=== PATIENT | female | born 1930 | race Caucasian/White ===

== ENCOUNTER 2017-09-08 23:14 | Inpatient (IN) | payer MEDICARE ==
[2017-09-09] MEDS ORDERED: Ondansetron HCl/PF 4 MG/2 ML Vial ONE ×3 (00:07→16:35)
[2017-09-09] MEDS ORDERED: Morphine 2 MG/ML SYRINGE ONE ×2 (00:07→01:40)
[2017-09-09 00:10] LABS: #Eosinphils 0.2 thou/uL (0.0-0.7); #Lymphocytes 0.9 thou/uL (1.20-3.40); #Monocytes 0.6 thou/uL (0.11-0.59); #Neutrophils 8.5 thou/uL (1.40-6.50); %Basophils 0.3 % (0.0-1.0); %Eosinophils 1.9 % (0.0-10.0); %Lymphocytes 8.8 % (21.0-51.0); %Monocytes 5.6 % (0.0-10.0); %Neutrophils 83.4 % (42.0-75.0); Hemoglobin 12.6 g/dL (12.0-16.0); Mean Corpuscular HGB CONC 31.1 g/dL (32.0-36.0); Mean Corpuscular Hemoglobin 30.8 pg (27.0-31.0); Mean Platelet Volume 7.1 fL (7.4-10.4); Platelet Count 384 thou/uL (130-400); RBC Distribution Width 13.2 % (11.5-14.5); White Blood Cell (WBC) Count 10.1 thou/uL (4.8-10.8)
[2017-09-09 00:30] LABS: ALT (SGPT) 19 U/L (8-55); AST (SGOT) 21 U/L (5-34); Albumin 4.1 g/dL (3.4-4.8); Alkaline Phosphatase 102 U/L (40-150); Anion Gap 16 mmol/L (10-20); BUN (Urea Nitrogen) 36 mg/dL (9.8-20.1); Bilirubin, Total 0.5 mg/dL (0.2-1.2); Calc. Creatinine Clearance 0 mL/min (70-130); Calcium 10.3 mg/dL (7.8-10.44); Carbon Dioxide 25 mmol/L (23-31); Chloride 102 mmol/L (98-107); Estimated GFR-MDRD 21; Globulin 2.8 g/dL (2.4-3.5); Glucose 138 mg/dL (83-110); Potassium 4.3 mmol/L (3.5-5.1); Protein, Total 6.9 g/dL (6.0-8.3); Sodium 139 mmol/L (136-145)
[2017-09-09 00:42] LABS: Bilirubin Negative (Negative); Blood, Urine Moderate (Negative); Clarity TURBID (Clear); Glucose, Urine (Dipstick) Negative (Negative); Leukocyte Large (Negative); Nitrite Positive (Negative); Protein, Urine (Dipstick) 30 mg/dL (Neg-Trace); Specific Gravity, Urine 1.017 (1.002-1.036); Urobilinogen 0.2 mg/dL (0.2-1.0)
[2017-09-09 00:45] LABS: Bacteria/HPF 4+ HPF (None Seen); Hyaline Casts/LPF 0-3 HYALINE CAST LPF (0-3 Hyaline); Pathc Cast-AUWi Flag 0.14 (0-2.49); Squamous Epithelial None Seen HPF (0-3)
[2017-09-09 00:48] LABS: Yeast-AUWi Flag 420.5 (0-25.0)
[2017-09-09 00:58] LABS: Yeast-All Forms Rare HPF (None Seen)
[2017-09-09] MEDS ORDERED: cefTRIAXone\\ROCEPHIN 2 GM in Sodium Chloride 0.9% 100 ML IVPB SCH (01:45)
[2017-09-09] MEDS ORDERED: Acetaminophen 325 MG TAB PO PRN (02:52)
[2017-09-09] MEDS ORDERED: Ondansetron ODT 4 MG TAB SL PRN (02:52)
[2017-09-09] MEDS ORDERED: Ondansetron HCl/PF 4 MG/2 ML Vial IVP PRN ×2 (02:52→11:16)
[2017-09-09] MEDS: Sodium Chloride 0.9% 1,000 ML IV SCH ×5 (02:56→23:19)
[2017-09-09] MEDS: Morphine 2 MG/ML SYRINGE SLOW IVP PRN ×4 (03:31→08:14)
--- NOTE | 2017-09-09 08:08 | CT ---
PRELIMINARY REPORT/[facility]/EMERGENCY AFTER HOURS PROCEDURE: EXAM: CT Abdomen and Pelvis Without Intravenous Contrast CLINICAL HISTORY: 87 years old, female; Pain; Abdominal pain; Flank; Right; Prior surgery; Surgery type: Surgical histo ry of appendectomy, surgical history of hysterectomy, cholecystectomy; Patient HX: 87f presents with right flank pain that started this afternoon. Patient reports pain radiates to her front. Reports HX of kidney stones and states this feels similar but worse. Reports nausea but no vomiting. Pain not associated with eating. Denies fever and chills. TECHNIQUE: Axial computed tomography images of the abdomen and pelvis without intravenous contrast. Coronal reformatted images were created and reviewed. COMPARISON: No relevant prior studies available. FINDINGS: Lower thorax: Minimal bibasilar atelectasis and/or scarring. Atherosclerotic ossification of the visu alized distal thoracic aorta. Small-sized hiatal hernia. ABDOMEN: Liver: Normal. Gallbladder and bile ducts: Gallbladder is surgically absent. Pancreas: Normal. Spleen: Normal. Adrenals: Normal. Kidneys and ureters: Right hydronephrosis, with obstructive 7 mm calculus within the right proximal u reter. Bilateral nonobstructive nephrolithiasis. Stomach and bowel: Normal. Appendix: No findings to suggest acute appendicitis. PELVIS: Bladder: Normal. Reproductive: Uterus is surgically absent. ABDOMEN and PELVIS: Intraperitoneal space: Normal. No free air. No significant fluid collection. Bones/joints: Right hip arthroplasty, without acute complications. Left femoral neck fixation screws present. Old, healed left inferior and superior pubic rami fractures. Multilevel thoracolumbar spine degenerative changes. No dislocation. Soft tissues: Normal. Vasculature: Atherosclerotic disease of the abdominal aorta and iliac arteries. Multiple phleboliths within the pelvis. Lymph nodes: Normal. IMPRESSION: 1. Right hydronephrosis, with obstructive 7 mm calculus within the right proximal ureter. 2. Incidental/non-acute findings are described above. Thank you for allowing us to participate in the care of your patient. Dictated and Authenticated by: Ariel Liang MD 09/09/2017 12:59 AM Central Time ([place]) FINAL REPORT CT ABDOMEN AND PELVIS WITHOUT CONTRAST STONE PROTOCOL: Date: 09/09/17 HISTORY: Flank pain. COMPARISON: CT abdomen and pelvis stone protocol dated 03/18/17. FINDINGS/IMPRESSION: Findings and impression are concordant with the preliminary report by Rohit. In addition, there is gas within the right superior renal collecting system as was seen on the prior examination. Chronic comp ression fractures throughout the thoracolumbar spine. Insufficiency type fractures of the ilium bilat erally and the sacrum with sclerosis. POS: [facility]
[2017-09-09] MEDS ORDERED: Metoprolol Tartrate 5 MG/5 ML VIAL IVP SCH (08:15)
[2017-09-09] MEDS ORDERED: cloNIDine 0.1 MG TAB PO PRN (08:43)
[2017-09-09] MEDS ORDERED: Diltiazem 125 MG in Sodium Chloride 0.9% 100 ML IVPB SCH (08:45)
[2017-09-09] MEDS ORDERED: Ketorolac Tromethamine 30 MG/ML VIAL IVP SCH (08:45)
[2017-09-09] MEDS: Meropenem 1 GM in Sterile Water 20 ML SLOW IVP SCH ×2 (08:51→17:49)
[2017-09-09] MEDS ORDERED: METOPROLOL SUCCINATE 50 MG PO SCH (09:00)
[2017-09-09] MEDS ORDERED: Amlodipine 10 MG TAB PO SCH (09:00)
[2017-09-09] MEDS ORDERED: Ferrous Sulfate 325 MG TAB PO SCH (09:00)
[2017-09-09] MEDS ORDERED: Morphine ER 15 MG TAB PO SCH (09:00)
[2017-09-09] MEDS ORDERED: Pantoprazole 40 MG VIAL IVP SCH (09:00)
[2017-09-09] MEDS ORDERED: Levothyroxine Sodium 112 MCG TAB PO SCH (09:00)
[2017-09-09] MEDS ORDERED: Amlodipine 5 MG TAB PO SCH (09:00)
--- NOTE | 2017-09-09 09:27 | HP ---
DATE OF ADMISSION: 09/09/2017 CHIEF COMPLAINT: Abdominal pain. HISTORY OF PRESENT ILLNESS: This is an 87-year-old white female with a known history of renal stones in the past, has been closely following up with Dr. Forbes as outpatient. Discussed with son. The patient was in severe pain today and living at [facility] and she called th e EMS. She was having severe vomiting and abdominal pain. When patient arrived in the ER, she had e vidence of fever of 101 and then patient went to the floor. A rapid response was called as the patie nt was tachycardic to 120s-130s. She has a history of atrial fibrillation and her pain was 10/10 on intensity, no response with morphine of 2 mg. Pain was located in the right lower quadrant associate d with severe nausea. Patient was given 4 mg of morphine which did relieve some pain and following w hich tachycardia went up to like 140s to 170s, so 5 mg of IV metoprolol was given. The patient did r espond very well to that. The patient was closely monitored and discussed with the son about the cod e status and she wants a FULL CODE. Also discussed with urologist, Dr. Forrester who suggested the patient would need immediate stent placement and would go to the OR. PAST MEDICAL HISTORY: 1. Recurrent renal stones. 2. Anxiety. 3. Hypothyroidism. 4. Hypertension. 5. History of restless legs syndrome. 6. History of atrial fibrillation on anticoagulation. PAST SURGICAL HISTORY: History of cholecystectomy. FAMILY HISTORY: Extensive family history of cancer, but do not know what type of cancer. It is more on the father's side. No history of coronary artery disease. SOCIAL HISTORY: The patient denies any alcohol. No history of illicit drug use. No history of smok ing. ALLERGIES: No known drug allergies. HOME MEDICATIONS: 1. Alprazolam 0.25 mg p.o. daily. 2. Amlodipine 5 mg p.o. daily. 3. Eliquis 2.5 mg p.o. daily. 4. Benazepril 10 mg p.o. daily. 5. Clonidine 0.5 mg daily. 6. Famotidine 20 mg p.o. b.i.d. 7. Ferrous sulfate 325 mg p.o. daily. 8. Levothyroxine. 9. Metoprolol 25 mg daily. 10. Morphine 15 mg p.o. daily. 11. Ropinirole 0.5 mg p.o. bedtime. 12. Sennosides 2 tablets p.o. b.i.d. 13. Trazodone. REVIEW OF SYSTEMS: All 12 systems are reviewed with the patient thoroughly and found to be negative at this time. Systems reviewed are HEENT, CVS, VERIFICATION ENGINEER, respiratory, GI and . The following complete review of systems was negative, unless otherwise mentioned in the HPI or below: Constitutional: Weight loss or gain, sense of well-being, ability to conduct usual activities, exerc ise tolerance. Skin/Breast: Rash, itching, changes in hair growth or loss, nail changes, breast lumps, tenderness, swelling, nipple discharge. Eyes: Vision, double vision, tearing, blind spots, pain. ENT/Mouth: Headaches (location, time of onset, duration, precipitating factors), vertigo, lightheade dness, injury. Vision, double vision, tearing, blind spots, pain, nose bleeding, colds, obstruction, discharge, dental difficulties, gingival bleeding, dentures, neck stiffness, pain, tenderness, masses in thyroid or other areas Cardiovascular: Precordial pain, substernal distress, palpitations, syncope, dyspnea on exertion, or thopnea, nocturnal paroxysmal dyspnea, edema, cyanosis, hypertension, heart murmurs, varicosities, ph lebitis, claudication. Respiratory: Pain, shortness of breath, wheezing, stridor, cough, hemoptysis, fever or night sweats Gastrointestinal: Poor appetite, dysphagia, indigestion, abdominal pain, heartburn, eructation, naus ea, vomiting, hematemesis, jaundice, constipation, or diarrhea, abnormal stools (tapan-colored, tarry, bloody, greasy, foul smelling), flatulence, hemorrhoids, recent changes in bowel habits. Genitourinary: Urgency, frequency, dysuria, nocturia, hematuria, polyuria, oliguria, unusual (or yash nge in) color of urine, stones, hesitancy, change in size of stream, dribbling, acute retention or in continence, libido, potency. Musculoskeletal: Pain, swelling, redness or heat of muscles or joints, limitation, of motion, muscul ar weakness, atrophy, cramps. Neurologic/Psychiatric: Convulsions, paralyses, tremor, incoordination, paraesthesias, difficulties with memory of speech, sensory or motor disturbances, or muscular coordination (ataxia, tremor), emot ional problems, anxiety, depression, previous psychiatric care, unusual perceptions, hallucinations. Allergy/Immunologic: Skin rash, anemia, bleeding tendency, polydipsia, polyuria, intolerance to heat or cold. PHYSICAL EXAMINATION: VITAL SIGNS: Blood pressure is 148/74, heart rate is 145, respiratory rate is 18, and saturation 91% on 3 liters. GENERAL: The patient is moderately built and moderately nourished. She does appears to be in acute distress with pain in the right lower quadrant. HEENT: Atraumatic, normocephalic. PERRLA. Extraocular movements were intact. Oral mucosa is pink and moist. CARDIOVASCULAR: S1 and S2 normal. No murmurs, no rubs, no gallops. LUNGS: Bilateral air entry was equal. No wheezing, no crackles. ABDOMEN: Soft, nontender, no guarding, no rebound tenderness. Bowel sounds normal. MUSCULOSKELETAL: No calf tenderness. No pedal edema. No joint tenderness, no joint swelling. SKIN: No cyanosis, no erythema, no rash, no pallor. NEUROLOGIC: Cranial nerve examination II-XII intact. No focal deficits were noted. NECK: No thyromegaly, no lymphadenopathy. LABORATORY DATA AND IMAGING DATA: 1. WBC 10.1, hemoglobin 12.6, hematocrit is 40.6, platelets are 384. Sodium 139, potassium 4.3, chl oride 102, bicarbonate is 25, BUN is 36, creatinine is 2.2. 2. Blood sugar is 138. WBC 10.1, hemoglobin 12.6, hematocrit 40.6, and platelets 384. 3. CT of the abdomen was done showing evidence of a 7 mm proximal right ureteral stone. ASSESSMENT: 1. Acute obstructive uropathy. 2. Acute pyelonephritis. 3. Acute kidney injury. 4. Atrial fibrillation with rapid ventricular rate. 5. Hypertension. 6. Severe dehydration. PLAN: 1. The plan is to admit this patient to the [facility] at this time as the patient has atrial fibrillation with rapid ventricular rate, did not respond to metoprolol 5 mg. We will start the patient on Cardi zem and titrate patient to keep the heart rate less than 90. We will continue the patient on IV flui ds at this time. 2. The patient has evidence of acute obstructive uropathy and discussed with Dr. Forrester, plan t o take the patient to the OR at 10:00 this morning and we will keep the patient n.p.o. and we will st art the patient on IV antibiotics with meropenem 1 gram IV t.i.d. We will closely monitor. The be ent also has evidence of right hydronephrosis and patient would need immediate decompression of the u reter. 3. The patient has a history of acute kidney injury. The patient was given 1 liter fluid bolus norm al saline and we will continue to hydrate the patient at 100 mL an hour. 4. Patient history of hypertension. We will restart the patient's home medications. 5. The patient is anticoagulated with Eliquis. We will hold off on Eliquis at this time until after the surgery and we will have urologist decide on restarting the patient on Eliquis at that point. 6. Deep venous thrombosis prophylaxis, sequential compression devices. DICTATING PHYSICIAN: Cristobal Lopez. I spent 70 minutes of this patient; of this, 60 minutes is critical care time. My critical care time is from 07:50 a.m. to 08:50 a.m.
--- NOTE | 2017-09-09 09:31 | RAD ---
CHEST 1 VIEW: Date: 09/09/17 HISTORY: Low O2 sat. COMPARISON: Chest radiograph dated 04/06/16. FINDINGS: There are chronic pleural and parenchymal changes at both lung bases. Heart size upper limits of norm al. Mild prominence of the right hilum. Mild dextroscoliosis. The right pleural effusion seen on the prior examination has improved. IMPRESSION: Chronic changes. No acute intrathoracic abnormality. POS: H
[2017-09-09] MEDS: Senokot 8.6 MG TAB PO SCH ×2 (09:35→21:31)
[2017-09-09] MEDS ORDERED: Fentanyl 100 MCG/2 ML VIAL ONE (10:11)
[2017-09-09] MEDS ORDERED: Phenylephrine 10 MG/NS 250 ML 250 ML ONE (10:13)
[2017-09-09] MEDS ORDERED: Iothalamate Meglumine 60% 50 ML VIAL FS ONE (10:45)
[2017-09-09] MEDS ORDERED: Promethazine HCl 25 MG/ML VIAL SLOW IVP PRN (11:16)
[2017-09-09] MEDS ORDERED: Morphine Sulfate 2 MG/ML SYRINGE SLOW IVP PRN (11:16)
[2017-09-09] MEDS ORDERED: Promethazine HCl 25 MG/ML VIAL IM PRN (11:16)
[2017-09-09] MEDS ORDERED: Esmolol 100 MG/10 ML VIAL ONE ×2 (11:18→16:35)
--- NOTE | 2017-09-09 12:22 | RAD ---
IVP: Date: 09/09/17 HISTORY: Post right ureteral stent placement. FINDINGS: AP view abdomen obtained. There is hydronephrosis of the right kidney. There has been placement of a right ureteral stent, proximal portion in mid calices and distal aspect in expected location of bladd er. There is a cystoscope in place. Right and left proximal femoral hardware is in place. Atherosclerotic calcification of the abdominal aorta seen. IMPRESSION: Placement of a right ureteral stent. POS: [facility]
--- NOTE | 2017-09-09 13:00 | CT ---
CT BRAIN: Date: 09/09/17 HISTORY: Altered mental status. TECHNIQUE: Noncontrast enhanced CT images of brain obtained. FINDINGS/IMPRESSION: The brain is unremarkable. No evidence of intracranial masses, hemorrhages, strokes, or contusions se en. Findings called to Dr. Lopez at 1237 hours on 09/09/17. CODE CR. POS: [facility]
--- NOTE | 2017-09-09 13:00 | CON ---
DATE OF CONSULTATION: 09/09/2017 INPATIENT CONSULTATION REASON FOR CONSULT: Right ureteral stone with hydronephrosis, recurrent kidney stones. PRIMARY UROLOGIST: Bran Forbes MD HISTORY OF PRESENT ILLNESS: Ms. Thapa is an 87-year-old female with history of COPD, atrial fibrillation, history of recurrent kidney stones, followed by Dr. Forbes. She initially underwent right ureteral stent back in 03/2016 and underwent left ureteroscopy, laser lithotripsies, and stent placement on 2016. She presents today with a history of right flank pain. The patient currently has received morphine and subjective history is somewhat poor. She does relate taking her Eliquis this morning, however, that is erroneous since she is in the hospital, likely she took a dose yesterday morning. As she is a poor historian, history is obtained per chart. Previous imaging reviewed. She presented with stable vital signs with no fever, however this morning, she spiked to 103 with increased heart rate of 145. The patient transitioned to step down ICU. Currently receiving IV Cardizem. PAST MEDICAL HISTORY: Anxiety, COPD, depression, GERD, hypertension, history of recurrent kidney stones, history of pneumonia. PAST SURGICAL HISTORY: 1. Hip surgery. 2. Bilateral hysterectomy. 3. 03/2016, cystoscopy and right stent by Dr. Forbes. 4. 03/18/2017, left ureteroscopy, laser lithotripsy, stent placement [address] Forbes. HOME MEDICATIONS: Include Norvasc, Xanax, amlodipine, Eliquis 2.5 mg b.i.d., Lotensin, digoxin, Pepcid, levothyroxine, metoprolol, MS Contin, MiraLax, Senokot. ALLERGIES: No known drug allergies. REVIEW OF SYSTEMS: Ten-point review of systems as above. PHYSICAL EXAMINATION: VITAL SIGNS: Temperature 103.2, heart rate is 145, 91% on 3 liters, blood pressure 130/74. GENERAL: The patient appears somewhat confused, she has received morphine recently. Frail elderly female. HEART: Tachycardic, irregular. LUNGS: Decreased inspiratory effort. ABDOMEN: Midline laparotomy incision, protuberant. There is no gross rigidity or rebound. Pompa catheter draining clear yellow urine. EXTREMITIES: No cyanosis, clubbing, or edema. PERTINENT LABS AND IMAGING: White count 10, hemoglobin 12, platelet 387, INR 1.0, PTT of 30, BUN 36, creatinine 2.2, baseline creatinine variable from 1.0 to 0.4. Urinalysis demonstrates positive nitrites, 4+ bacteria. Blood culture and urine culture are pending. I did review her previous urine culture demonstrating Proteus, E. coli, pansensitive except to Macrobid. She has received Rocephin, meropenem. CT of the abdomen and pelvis stone protocol dated 09/09/2017: There is right hydroureteronephrosis due to 7-mm stone in the right proximal ureter. Per my review, the craniocaudal dimension of the stone is 1.2-2 cm. I cannot rule out these 2 stones on top of each other. There are multiple large right nonobstructing renal lithiasis, largest in the lower pole approximately 1.2 cm with some dystrophic calcification in the renal parenchyma. Left kidney also has multiple renal calculi near 8-10 mm. There is no evidence of left hydronephrosis. IMPRESSION/PLAN: 1. Ms. Thapa is an 87-year-old female with history of recurrent urolithiasis. She presents with right ureteral calculi with urinalysis consistent with urinary tract infection component. 2. Fever. The patient has been provided broad spectrum antibiotic therapy, the patient to OR for emergent cystoscopy and right stent placement. As patient has been taking Eliquis, I will attempt to place a stent. If I am unable to place a stent, she will require nephrostomy tube. MTDD
[2017-09-09] MEDS ORDERED: Norepinephrine 8 MG/0.9% NS 250 ML ONE (13:09)
--- NOTE | 2017-09-09 13:11 | PDOC.PN ---
- Subjective Encounter Start Date: 09/09/17 Encounter Start Time: 12:30 (Rapid Response was called) Patient is seen today after she returned from Right ureteric Stent placement, She was altered and disorieted was not following commands for the nurses. Pt denies any chest pain. - Objective MAR Reviewed: Yes Vital Signs & Weight: Vital Signs (12 hours) Temp Temp Pulse Resp BP BP Pulse Ox 09/09/17 09:34 145 H 09/09/17 09:31 102.6 F H 145 H 24 H 107/72 96 09/09/17 07:50 103.2 F H 148/74 H 09/09/17 07:35 103.2 F H 145 H 18 148/74 H 91 L 09/09/17 04:41 98.9 F 96 19 145/77 H 93 L 09/09/17 03:39 98.7 F 109 H 16 92 L 09/09/17 02:37 98.7 F 109 H 16 135/77 92 L Pulse Ox 09/09/17 09:34 09/09/17 09:31 09/09/17 07:50 91 L 09/09/17 07:35 09/09/17 04:41 09/09/17 03:39 09/09/17 02:37 Weight Weight 125 lb 0.034 oz Result Diagrams: 09/08/17 23:55 09/08/17 23:55 Additional Labs: Accuchecks 09/09/17 07:53 POC Glucose 148 H Radiology Reviewed by me: Yes EKG Reviewed by me: Yes Phys Exam - Physical Examination HEENT: PERRLA, moist MMs Neck: no nodes, no JVD Respiratory: wheezing present Cardiovascular: RRR, no significant murmur Gastrointestinal: soft, non-tender, no distention Musculoskeletal: no edema, pulses present Neurological: non-focal, normal sensation Lymphatic: no nodes Dx/Plan (1) Acute encephalopathy Code(s): G93.40 - ENCEPHALOPATHY, UNSPECIFIED Status: Acute Comment: Unknown cause, CT head negative, Will Do MRI when pt is more stable. Will do neurochecks and do neurology consult. (2) Hypotension due to drugs Status: Acute Comment: GIve IV fluid bolus, Will Hold the Cardizem Drip, will consult Cardiology, pt will need Amiodarone. (3) Atrial fibrillation with RVR Code(s): I48.91 - UNSPECIFIED ATRIAL FIBRILLATION Status: Acute Comment: Plan for Amiodarone drip, Will get Echo for wall motion abnormality. (4) Acute unilateral obstructive uropathy Code(s): N13.9 - OBSTRUCTIVE AND REFLUX UROPATHY, UNSPECIFIED Status: Acute Comment: PT had Right uretric Stent, Will closley monitor. (5) Hydronephrosis, right Code(s): N13.30 - UNSPECIFIED HYDRONEPHROSIS Status: Acute Comment: Worsening Renal fucntions should improve after Stent placement. (6) COPD (chronic obstructive pulmonary disease) Status: Chronic Qualifiers: COPD type: chronic bronchitis Chronic bronchitis type: unspecified Qualified Code(s): J42 - Unspecified chronic bronchitis Comment: No evidence of COPd exacerbation. (7) HTN (hypertension) Code(s): I10 - ESSENTIAL (PRIMARY) HYPERTENSION Status: Chronic Qualifiers: Hypertension type: essential hypertension Qualified Code(s): I10 - Essential (primary) hypertension - Plan cont current plan of care, plan discussed w/ family, knowles catheter * . - Discharge Day Encounter end time: 13:00 Review of Systems - Review of Systems ENT: negative: Ear Pain, Ear Discharge, Nose Pain, Nose Discharge, Nose Congestion, Mouth Pain, Mouth Swelling, Throat Pain, Throat Swelling, Other Respiratory: negative: Cough, Dry, Shortness of Breath, Hemoptysis, SOB with Excertion, Pleuritic Pain, Sputum, Wheezing Cardiovascular: negative: chest pain, palpitations, orthopnea, paroxysmal nocturnal dyspnea, edema, light headedness, other Gastrointestinal: negative: Nausea, Vomiting, Abdominal Pain, Diarrhea, Constipation, Melena, Hematochezia, Other Genitourinary: negative: Dysuria, Frequency, Incontinence, Hematuria, Retention , Other Musculoskeletal: negative: Neck Pain, Shoulder Pain, Arm Pain, Back Pain, Hand Pain, Leg Pain, Foot Pain, Other - Medications/Allergies Allergies/Adverse Reactions: Allergies Allergy/AdvReac Type Severity Reaction Status Date / Time No Known Allergies Allergy Verified 09/19/16 05:52 Medications: Current Medications Acetaminophen (Tylenol) 650 mg PO Q4H PRN PRN Reason: Headache/Fever or Pain Stop: 09/09/17 13:32 Last Admin: 09/09/17 07:57 Dose: 650 mg Amlodipine Besylate (Norvasc) 5 mg PO DAILY [facility] Last Admin: 09/09/17 09:34 Dose: Not Given Benazepril HCl (Lotensin) 10 mg PO DAILY [facility] Last Admin: 09/09/17 09:34 Dose: Not Given Clonidine (Catapres) 0.1 mg PO Q4H PRN PRN Reason: SBP > 180 Fentanyl (Pacu-Sublimaze) 50 mcg SLOW IVP Q10MIN PRN PRN Reason: Moderate to Severe Pain (6-10) Stop: 09/09/17 14:16 Ferrous Sulfate (Feosol) 325 mg PO DAILY [facility] Last Admin: 09/09/17 09:34 Dose: Not Given Sodium Chloride (Normal Saline 0.9%) 1,000 mls @ 125 mls/hr IV .Q8H [facility] Stop: 09/09/17 13:32 Last Admin: 09/09/17 08:54 Dose: 1,000 mls Meropenem 1 gm/ Sterile Water 20 mls @ 240 mls/hr SLOW IVP 0100,0900,1700 [facility] Last Admin: 09/09/17 08:51 Dose: 20 mls Diltiazem HCl 125 mg/ Sodium (Chloride) 125 mls @ 0 mls/hr IVPB INF [facility]; Titrate PRN Reason: Protocol Last Admin: 09/09/17 09:42 Dose: 125 mls Influenza Virus Vaccine (Fluzone High-Dose Syr) 0.5 ml IM .ONCE ONE Stop: 09/10/17 09:01 Levothyroxine Sodium (Synthroid) 112 mcg PO DAILY [facility] Last Admin: 09/09/17 09:34 Dose: Not Given Metoprolol Succinate (Toprol Xl) 50 mg PO DAILY [facility] Last Admin: 09/09/17 09:34 Dose: Not Given Morphine Sulfate (Morphine) 2 mg SLOW IVP Q4H PRN PRN Reason: Pain Last Admin: 09/09/17 08:14 Dose: 2 mg Morphine Sulfate (Ms Contin) 15 mg PO DAILY [facility] Last Admin: 09/09/17 09:34 Dose: Not Given Morphine Sulfate (Pacu-Morphine Sulfate) 2 mg SLOW IVP Q10MIN PRN PRN Reason: Moderate to Severe Pain (6-10) Stop: 09/09/17 14:16 Ondansetron HCl (Zofran) 4 mg IVP Q6H PRN PRN Reason: Nausea/Vomiting Stop: 09/09/17 13:32 Last Admin: 09/09/17 04:46 Dose: 4 mg Ondansetron HCl (Zofran Odt) 4 mg SL Q6H PRN PRN Reason: Nausea/Vomiting Stop: 09/09/17 13:32 Ondansetron HCl (Pacu-Zofran) 4 mg IVP ONE PRN PRN Reason: Nausea/Vomiting Stop: 09/09/17 14:16 Pantoprazole Sodium (Protonix) 40 mg IVP DAILY [facility] Last Admin: 09/09/17 08:46 Dose: 40 mg Pneumococcal 13-Valent Conj Vacc (Prevnar) 0.5 ml IM .ONCE ONE Stop: 09/10/17 09:01 Promethazine HCl (Pacu-Phenergan) 6.25 mg SLOW IVP ONE PRN PRN Reason: Nausea/Vomiting Stop: 09/09/17 14:16 Promethazine HCl (Pacu-Phenergan) 6.25 mg IM ONE PRN PRN Reason: Nausea/Vomiting Stop: 09/09/17 14:16 Ropinirole HCl (Requip) 0.5 mg PO QPM [facility] Senna (Senokot) 2 tab PO BID [facility] Last Admin: 09/09/17 09:35 Dose: Not Given Sodium Chloride (Flush - Normal Saline) 10 ml IVF Q12HR [facility] Last Admin: 09/09/17 09:35 Dose: Not Given Sodium Chloride (Flush - Normal Saline) 10 ml IVF PRN PRN PRN Reason: Saline Flush Sodium Chloride (Flush - Normal Saline) 10 ml IVF PRN PRN PRN Reason: Saline Flush Trazodone HCl (Desyrel) 50 mg PO HS [facility]
[2017-09-09] MEDS ORDERED: Norepinephrine 8 MG/0.9% NS 250 ML IVPB SCH ×2 (13:15→14:30)
[2017-09-09 13:35] LABS: CO2 Tension 60.8 mmHg (35.0-45.0); O2 Tension (PaO2) 70.3 mmHg (80.0-100.0); pH, Arterial 7.19 (7.35-7.45)
[2017-09-09 13:36] LABS: Actual Bicarbonate (HCO3a) 22.5 mEq/L (22-26); Base Excess (BEa) -6.3 mEq/L (0 (+/-) 2.5); Calcium, Ionized 1.3 mmol/L (1.12-1.30); Hemoglobin (Hb) 11.8 g/dL (12.0-16.0); Puncture Site LRA
[2017-09-09 13:37] LABS: CO2 Tension 35.3 mmHg (35.0-45.0); pH, Arterial 7.42 (7.35-7.45)
[2017-09-09 13:38] LABS: ALV-art Gradient 150.355 (0-20); Actual Bicarbonate (HCO3a) 22.4 mEq/L (22-26); Base Excess (BEa) -1.5 mEq/L (0 (+/-) 2.5); Calcium, Ionized 1.3 mmol/L (1.12-1.30); Hemoglobin (Hb) 12.6 g/dL (12.0-16.0); O2 Tension (PaO2) 62.2 mmHg (80.0-100.0); Puncture Site LRA
[2017-09-09] MEDS ORDERED: Meropenem 1 GM in Sodium Chloride 0.9% 100 ML IVPB SCH (14:00)
[2017-09-09 14:07] LABS: Troponin I 1.718 ng/mL (< 0.028)
[2017-09-09 14:21] LABS: Actual Bicarbonate (HCO3a) 17.8 mEq/L (22-26); Base Excess (BEa) -6.4 mEq/L (0 (+/-) 2.5); CO2 Tension 30.8 mmHg (35.0-45.0); Hematocrit-ABG 35.4 % (36.0-47.0); Hemoglobin (Hb) 10.8 g/dL (12.0-16.0); O2 Tension (PaO2) 110.1 mmHg (80.0-100.0); pH, Arterial 7.38 (7.35-7.45)
[2017-09-09 14:22] LABS: Calcium, Ionized 1.3 mmol/L (1.12-1.30)
[2017-09-09 14:23] LABS: Puncture Site RBA
[2017-09-09] MEDS ORDERED: CCU Electrolyte Replacement 1 EACH FS ONE (14:23)
[2017-09-09] MEDS ORDERED: Sedation Protocol FS ONE (14:23)
[2017-09-09] MEDS ORDERED: Acetaminophen 650 MG in Premix Bag 1 BAG IVPB PRN (14:27)
[2017-09-09] MEDS ORDERED: Magnesium Oxide 400 MG TAB PO PRN ×2 (14:31)
[2017-09-09] MEDS ORDERED: Morphine 2 MG/ML SYRINGE SLOW IVP PRN (14:31)
[2017-09-09] MEDS ORDERED: Magnesium 2 GM/NS 0.9% 100 ML 2 GM in Premix Bag 1 BAG IVPB PRN (14:31)
[2017-09-09] MEDS ORDERED: Potassium Phosphate 15 MMOL in Sodium Chloride 0.9% 250 ML 250 ML IV PRN (14:31)
[2017-09-09] MEDS ORDERED: Potassium Phosphate 9 MMOL in Sodium Chloride 0.9% 100 ML IVPB PRN (14:31)
[2017-09-09] MEDS ORDERED: CCU ELECTROLYTE REPLACEMENT PROTOCOL FS PRN (14:31)
[2017-09-09] MEDS ORDERED: DISCONTINUE PREVIOUS NARCOTIC PAIN MEDICATIONS AND BENZODIAZEPINES FS SCH (14:31)
[2017-09-09] MEDS ORDERED: Potassium Chloride 40 MEQ in Premix Bag 1 BAG IVPB PRN (14:31)
[2017-09-09] MEDS ORDERED: Propofol 1,000 MG/100 ML VIAL IV PRN (14:31)
[2017-09-09] MEDS ORDERED: Potassium Chloride 40 MEQ in Sodium Chloride 0.9% 250 ML 250 ML IVPB PRN (14:31)
[2017-09-09] MEDS ORDERED: Potassium Chloride 20 MEQ TAB PO PRN (14:31)
[2017-09-09] MEDS ORDERED: Potassium Phosphate 12 MMOL in Sodium Chloride 0.9% 250 ML 250 ML IV PRN (14:31)
[2017-09-09] MEDS ORDERED: Fentanyl 20 MCG/ML 250 ML IVPB SCH (14:31)
--- NOTE | 2017-09-09 14:40 | RAD ---
CHEST 1 VIEW: Date: 09/09/17 HISTORY: Intubated, line placement. COMPARISON: Chest 1 view same date. FINDINGS: Patient intubated with endotracheal tube tip above the sebas approximately 3.5 cm. Central venous ca theter is in place, tip in right atrium. Enteric tube tip below diaphragm, out of field of view. Layering effusions. No pneumothorax. Heart size mildly prominent. IMPRESSION: Lines and tubes as above. No complications. POS: [facility]
--- NOTE | 2017-09-09 14:54 | OP ---
DATE OF SERVICE: 09/09/2017 PRIMARY UROLOGIST: Bran Forbes M.D. PREOPERATIVE DIAGNOSES: 1. An 87-year-old female with history of recurrent urolithiasis, presents with right hydronephrosis, nitrite positive urine, stone burden in the ureter measuring approximately 1.2-2 cm in craniocaudal dimension. 2. Multiple bilateral nonobstructing calculi. POSTOPERATIVE DIAGNOSES: 1. An 87-year-old female with history of recurrent urolithiasis, presents with right hydronephrosis, nitrite positive urine, stone burden in the ureter measuring approximately 1.2-2 cm in craniocaudal dimension. 2. Multiple bilateral nonobstructing calculi. PROCEDURE: Cystoscopy, right 6 x 26 double-J ureteral stent, limited retrograde. SURGEON: Hue Forrester D.O. ANESTHESIA: General. COMPLICATIONS: None apparent. DISPOSITION: Recovery room in stable condition. INDICATIONS FOR PROCEDURE AND HISTORY: Ms. Thapa is an 87-year-old female with history of recurrent urolithiasis. The patient followed by Dr. Forbes, previously underwent left ureteroscopy, laser lithotripsy, stent placement. She presents with bilateral renal lithiasis, obstructing right proximal ureteral calculi dimensions as above. This morning tmax temperature to 103 and transitioned to OR for emergent right stent placement. Risks and complications and indications reviewed with patient and family at bedside. Risks and complications including bleeding, pain, infection, urosepsis, injury to adjacent organs. Possible need for nephrostomy tube was reviewed. All questions answered to their satisfaction, she desired to proceed. DESCRIPTION OF THE PROCEDURE: After an informed consent is signed, the patient is taken to the operating room and placed in a dorsal lithotomy position with the genital area prepped and draped in the usual surgical sterile fashion. A 21 -Sinhala cystoscope was utilized for cystoscopy. Bilateral UOs were patulous. There was no evidence of bladder stone. An open-ended catheter was placed to the level of the stone, there was an obstructive component met. There was some resistance passing a 0.35 sensor wire. Therefore, I did gently do a retrograde pyelogram to opacify the collecting system. A 0.35 sensor wire was then able to be passed into the upper mid pole, a 6 x 26 double-J ureteral stent was then passed without significant issues. Upon passing the ureteral stent, drainage consistent with pyonephrosis was noted. An 18 Sinhala 10 mL Pompa catheter was placed to gravity bag to optimize drainage of the collecting system. She will continue broad spectrum antibiotic therapy. We will inform Dr. Forbes on Monday regarding patient's clinical course. The patient is to be transitioned back to IMCU for close monitoring for sepsis. [facility]
[2017-09-09] MEDS: Lorazepam 2 MG/ML VIAL SLOW IVP PRN (16:27)
[2017-09-09] MEDS ORDERED: PHENYLEPHRINE-NS 100 MCG/ML 10 ML SYRINGE ONE (16:35)
[2017-09-09] MEDS ORDERED: Succinylcholine Chloride 20 MG/ML 10 ml SYRINGE FS ONE (16:35)
[2017-09-09] MEDS ORDERED: Lidocaine 1% PF 5 ML VIAL ONE (16:35)
[2017-09-09] MEDS ORDERED: Propofol 200 MG/20 ML VIAL ONE (16:35)
[2017-09-09] MEDS ORDERED: ePHEDrine/0.9% NaCl/PF SYRINGE 50 mg/10 ml ONE (16:35)
[2017-09-09] MEDS ORDERED: Glycopyrrolate 0.2 MG/ML 5 ML SYRINGE ONE (16:35)
[2017-09-09] MEDS ORDERED: Dexamethasone 20 MG/5 ML VIAL ONE (16:35)
[2017-09-09] MEDS: Hydrocortisone Sod Succ/PF 100 mg/2 ml Vial IVP SCH ×2 (17:09→23:19)
--- NOTE | 2017-09-09 18:02 | OP ---
PROCEDURE: Central line placement. PREOPERATIVE DIAGNOSIS: Hypotension, need for vasopressors. POSTOPERATIVE DIAGNOSIS: Hypotension, need for vasopressors. ANESTHESIA: Lidocaine 1% without epinephrine. DESCRIPTION OF PROCEDURE: Chlorhexidine was used as prep and lidocaine was used as local anesthetic at both sides. Initially, I tried left subclavian. The vessel was cannulated very easily, but I cou ld not pass the wire. The site was aborted and subsequently changed to a right IJ area where a tripl e lumen catheter was placed in the right IJ vessel via the modified Seldinger technique without diffi culty. X-ray confirmed proper placement. Three ports flushed venous blood.
[2017-09-09 20:48] LABS: Troponin I 1.939 ng/mL (< 0.028)
[2017-09-09] MEDS ORDERED: rOPINIRole HCl 0.25 MG TAB PO SCH (21:00)
[2017-09-09] MEDS ORDERED: Non-Formulary Item 1 EACH (Trazodone Hcl [Trazodone Hcl] 50 MG) PO SCH (21:00)
[2017-09-09] MEDS: traZODone HCl 50 MG TAB PO SCH (21:18)
--- NOTE | 2017-09-10 00:31 | CON ---
DATE OF CONSULTATION: 09/09/2017 One hour and thirty-five minutes critical care time. REASON FOR THE CONSULTATION: Acute respiratory failure and sepsis. HISTORY OF PRESENT ILLNESS: History is obtained from speaking with family, speaking with the other joan drake and reviewing the notes in the chart. She is an 87-year-old female who apparently has a hi story of nephrolithiasis. She was having severe pain over at [facility] and EMS was called. S he was found to be febrile with extreme tachycardia. According to nursing staff at one point, her he art rate got up to the 200s. She was taken to the OR today for ureteral stent placement to relieve a n obstruction from stone. After she was in the OR, she was brought back to the floor where she demon strated altered mental status. Stroke alert was called. She was sent for a CT of the head around 12 20 hours, which showed no evidence of stroke. She came back to the room, where she continued to have problems with gurgling, respirations and inability to clear her secretions. A marquis shrestha was called . I was notified by the respiratory therapist that the patient needed to come to the CCU and probabl y need to be intubated. PAST MEDICAL HISTORY: 1. Nephrolithiasis 2. Anxiety. 3. Hypothyroidism. 4. Hypertension. 5. Restless leg syndrome. 6. Atrial fibrillation. PAST SURGICAL HISTORY: Cholecystectomy. FAMILY MEDICAL HISTORY: Remarkable for cancer. SOCIAL HISTORY: Nonsmoker, does not consume alcohol, does not use illicit drugs. ALLERGIES: None. MEDICATIONS PRIOR TO ADMISSION: Alprazolam, amlodipine, Eliquis, benazepril, clonidine, famotidine, iron sulfate, levothyroxine, metoprolol, morphine, ropinirole, trazodone, and sennosides. REVIEW OF SYSTEMS: Twelve point review of systems cannot be obtained as the patient currently intuba jad and on mechanical ventilation. PHYSICAL EXAMINATION: VITAL SIGNS: Temperature 102.6, pulse now 79, blood pressure 102/77, O2 sat 98%, respiratory rate 20 . GENERAL: I have intubated the patient as she is on mechanical ventilation. HEENT: Pupils are reactive. Sclerae anicteric. Oropharynx dry. NECK: No JVD. LUNGS: Coarse breath sounds bilaterally. CARDIAC: S1, S2, ranging between regular rhythm and tachycardic rhythm. ABDOMEN: Soft and nontender. EXTREMITIES: No clubbing, cyanosis, or edema. LABORATORY DATA: White blood cell count 10, hemoglobin 12, hematocrit 40, platelet count 384, pH 7.1 9, pCO2 of 60, pO2 of 70 on nasal cannula 3 liters. Post-intubation, her pH is 7.37, pCO2 of 30, pO2 of 110. Sodium 139, potassium 4.3, chloride 102, CO2 of 25, BUN 36, creatinine 2.2, glucose 138. T roponin 1.7. The urinalysis showed too numerous to count white blood cells and 11-20 red blood cells . Post-intubation chest x-ray interpreted by myself shows a slightly enlarged heart size. She has b ilateral infiltrative changes. The ET tube is just 2 cm above the sebas. There is a right IJ centr al line that is in place. There is no evidence of a pneumothorax. ASSESSMENT: 1. Severe urosepsis with fever and hypotension. 2. Acute respiratory failure, probably related to sepsis and not necessarily the stroke. 3. Altered mental status, which I think is probably secondary to sepsis. 4. Nephrolithiasis with ureteral tract obstruction requiring stent placement. PLAN: She has been brought to the CCU. Under the direct supervision by myself, the patient was intu bated by RT first attempt using GlideScope with a 7.5 endotracheal tube. This was accomplished without difficulty. The end-tidal CO2 detector demonstrating yellow color afterwards. The patient was then placed on mechanical ventilation.
[2017-09-10] MEDS: Meropenem 1 GM in Sterile Water 20 ML SLOW IVP SCH ×3 (00:35→16:06)
--- NOTE | 2017-09-10 01:02 | CON ---
DATE OF CONSULTATION: 09/09/2017 DATE OF ADMISSION: 09/09/2017 INDICATION FOR CONSULTATION: An 87-year-old female with acute respiratory failure, is postoperativel y with acute EKG changes and tachycardia and also abnormal cardiac enzymes. HISTORY OF PRESENT ILLNESS: An 87-year-old female who was admitted earlier with what appeared to be acute right hydronephrosis and sudden onset of flank pain, was found to have a 7-mm stone in need to undergo a right ureteral stent, this was placed today. After the procedure, she was on the floor, wa s doing relatively well. She was told to have tachycardia and elevated temperature. She then develo ped acute ST segment changes associated with tachycardia and then was transferred and then had respir atory distress, required intubation, and was transferred to the Intensive Care Unit. She did have an echocardiogram in 09/2016, which showed a normal ejection fraction with mild mitral and tricuspid va lve regurgitation. She has also had a history of atrial fibrillation and flutter in the past for whi ch she has undergone ablation. She had been doing relatively well from a cardiac standpoint, there w as no previous history that we are aware of coronary artery disease. At this time, the EKG changes s eemed to have resolved significantly. We will continue to monitor the cardiac enzymes and troponin I was 1.71 earlier today. At this time, she is on the ventilator and she is awake it seems and tries to nod to answer questions, but otherwise did not appear to be any acute distress. She denies any pa in at this time. PAST MEDICAL HISTORY: Hysterectomy, appendectomy, cholecystectomy, history of nephrolithiasis, COPD, anemia, osteoporosis. She has had a DVT in the past. She has a pelvic fracture in 2014. She has h ypothyroidism. She has had history of flutter ablations, history of nephrostomy in the past, history of a tonsillectomy, gastroesophageal reflux disease, history of atrial fibrillation and flutter in t he past which underwent ablation. SOCIAL HISTORY: She stopped smoking over 30 years ago. She has occasional alcohol which is relative ly rare. FAMILY HISTORY: Lung cancer, both in her mother and her father and one brother. ALLERGIES: None. MEDICATIONS: Reviewed medications. Please refer to the list of medicines in the chart. She is on a ntibiotics at this time. REVIEW OF SYSTEMS: Unobtainable. Please refer to the records in the chart. She is still on the chavez tilator and unable to answer this questions. PHYSICAL EXAMINATION: GENERAL: Reveals an elderly female who does not appear to be any acute distress. VITAL SIGNS: She is easily awakable, blood pressure is 125/55, heart rate is 75 and regular at this time. O2 saturations are 98%, respiratory rate 11. HEENT: Shows the head to be normocephalic and atraumatic. Carotid pulses are present. I did not he ar any significant bruits. CHEST: Clear to auscultation without rales, rhonchi, or wheezing. CARDIOVASCULAR: Exam reveals a regular rate and rhythm. She has S1, S2. I cannot hear an S3 nor an S4. There were no significant murmurs, heaves, thrills, bruits, or rubs. ABDOMEN: Soft at this time. Bowel sounds are decreased. EXTREMITIES: Show no clubbing or cyanosis. Pedal pulses are difficult to palpate. NEUROLOGIC: The patient appears to be relatively intact despite being on the ventilator. IMAGING: EKG shows a normal sinus rhythm with a first degree AV heart block. There were some episod es of atrial tachycardia earlier with ST segment depression inferiorly with slight ST segment elevati on anteriorly. These appeared to have resolved, we will repeat EKG for further evaluation. LABORATORY DATA: Her laboratory data shows a creatinine of 2.2, potassium 4.3. Hemoglobin was 12.6, WBC of 10.1, troponin I is 1.7. IMPRESSION: 1. Demand ischemia with possible non-ST segment elevation myocardial infarction with acute EKG de la cruz es, which now seems to have improved. She is on the ventilator as appears to be more comfortable at this time as long as EKG remains stable. Then we will continue to treat her medically at this time. She eventually may need to undergo cardiac catheterization, but at this time, she has had a recent s tent placed in the ureter. They may need to be cautious with blood thinner, she had been on blood th inners in the past in the form of Eliquis due to her history of atrial fibrillation/flutter. We will continue to monitor very carefully. 2. History of atrial fibrillation/flutter with an atrial tachycardia or atrial flutter this morning, which appears now to have resolved. We will need to follow this. If necessary could start low dose of beta blockers, if the blood pressure tolerates it. 3. History of hypertension, this is stable at this time. 4. History of deep venous thrombosis. She will need to have some type of anticoagulation for deep v enous thrombosis prophylaxis. She has compression hose intact at this time. 5. History of anemia. This appears to be stable at this time. 6. Chronic kidney disease. This is relatively her baseline over the last year. She has fluctuated with a creatinine between 1.76 to 2.2 if she remains stable. She is not a candidate for interv ention due to the recent stent placement and since she is more stable at this time. We will continue to follow her. She eventually may need to undergo stress testing or cardiac catheterization.
[2017-09-10] MEDS: Hydrocortisone Sod Succ/PF 100 mg/2 ml Vial IVP SCH ×4 (05:27→23:40)
[2017-09-10] MEDS: Levothyroxine Sodium 112 MCG TAB PER TUBE SCH (05:27)
[2017-09-10 06:12] LABS: Band 27 % (5-11); Hemoglobin 10.1 g/dL (12.0-16.0); Lymphocytes 1 % (21-51); MDiff Complete? YES; Mean Corpuscular HGB CONC 32.5 g/dL (32.0-36.0); Mean Corpuscular Hemoglobin 31.8 pg (27.0-31.0); Mean Corpuscular Volume 97.9 fl (81.0-99.0); Mean Platelet Volume 7.8 fL (7.4-10.4); Monocytes 8 % (0-10); Neutrophil 64 % (42-75); PLT Morphology Comment Appears Adequate; Platelet Count 217 thou/uL (130-400); RBC Distribution Width 13.3 % (11.5-14.5); RBC Morphology Normal; Red Blood Cell (RBC) Count 3.18 mill/uL (4.20-5.40); White Blood Cell (WBC) Count 29.6 thou/uL (4.8-10.8)
[2017-09-10 06:22] LABS: ALT (SGPT) 23 U/L (8-55); AST (SGOT) 48 U/L (5-34); Albumin 2.7 g/dL (3.4-4.8); Alkaline Phosphatase 49 U/L (40-150); Anion Gap 13 mmol/L (10-20); BUN (Urea Nitrogen) 32 mg/dL (9.8-20.1); Bilirubin, Total 0.3 mg/dL (0.2-1.2); Calc. Creatinine Clearance 20 mL/min (70-130); Calcium 8.2 mg/dL (7.8-10.44); Carbon Dioxide 20 mmol/L (23-31); Chloride 114 mmol/L (98-107); Estimated GFR-MDRD 24; Glucose 121 mg/dL (83-110); Potassium 4.3 mmol/L (3.5-5.1); Protein, Total 4.7 g/dL (6.0-8.3); Sodium 143 mmol/L (136-145)
[2017-09-10] MEDS: Sodium Chloride 0.9% 1,000 ML IV SCH ×3 (07:29→23:39)
[2017-09-10 08:08] LABS: Actual Bicarbonate (HCO3a) 19.2 mEq/L (22-26); Base Excess (BEa) -3.7 mEq/L (0 (+/-) 2.5); CO2 Tension 27.6 mmHg (35.0-45.0); Hematocrit-ABG 29.6 % (36.0-47.0); Hemoglobin (Hb) 9.9 g/dL (12.0-16.0); O2 Tension (PaO2) 124.1 mmHg (80.0-100.0); pH, Arterial 7.46 (7.35-7.45)
[2017-09-10 08:09] LABS: Calcium, Ionized 1.1 mmol/L (1.12-1.30); Puncture Site RBA
--- NOTE | 2017-09-10 08:39 | RAD ---
CHEST 1 VIEW: Date: 09/10/17 HISTORY: Ventilated patient. COMPARISON: Chest 1 view dated 09/09/17. FINDINGS: The patient is intubated with endotracheal tube tip craniad to the sebas 2.5 cm. Enteric tube tip be low diaphragm, although out of field of view. Layering effusions bilaterally. No pneumothorax. Centra l venous catheter tip right atrium. Layering effusions. Bibasilar air space opacities are similar. IMPRESSION: No significant change. POS: [facility]
[2017-09-10] MEDS: Pantoprazole 40 MG VIAL IVP SCH (08:40)
[2017-09-10] MEDS ORDERED: FLU VACC TS2017-18 (>65YR) 0.5 ML SYRINGE IM ONE (09:00)
[2017-09-10] MEDS ORDERED: Prevnar 13-Val Conj/PF 0.5 ML SYRINGE IM ONE (09:00)
[2017-09-10] MEDS: Apixaban 5 MG TAB PO SCH ×2 (09:14→19:54)
[2017-09-10] MEDS: Senokot 8.6 MG TAB PO SCH ×2 (09:14→19:54)
--- NOTE | 2017-09-10 10:07 | PRG ---
DATE OF SERVICE: 09/10/2017 Thirty-five minutes critical care time. SUBJECTIVE: Ms. Thapa remains intubated on mechanical ventilation. She will wake up and follow comm ands without hesitancy. PHYSICAL EXAMINATION: VITAL SIGNS: On exam, temperature is 98.8 with a T-max of 103.2, pulse 101, blood pressure 111/53. A 24-hour intake 3028, output 1080. HEENT EXAM: Unremarkable. Pupils react. Sclerae are anicteric. Oropharynx clear. NECK: No JVD. LUNGS: A few crackles in the bases. CARDIOVASCULAR: S1, S2, irregularly irregular. ABDOMEN: Soft, nontender to deep palpation. EXTREMITIES: No clubbing, cyanosis, or edema. NEUROLOGIC: She moves all 4 extremities without difficulty. Has 5/5 muscle strength throughout. No focality is noted. LABORATORY DATA: PH 7.46, pCO2 of 27, pO2 of 124 on SIMV rate 20, tidal volume 450, PEEP 5, pressure support 10, FiO2 60%. White blood cell count 29.6, hematocrit 31.1, platelet count 217. Sodium 143 , potassium 4.3, chloride 114, CO2 of 20, BUN 32, creatinine 2.0, glucose 121. Troponin is 1.93. He r x-ray shows infiltrative changes in both bases, which may be pulmonary edema. Cultures thus far sh ow no growth to date. ASSESSMENT: 1. Urosepsis secondary to nephrolithiasis. 2. Acute respiratory failure, requiring mechanical ventilation. 3. Probably did not have a stroke - I think her neurologic issues yesterday were due to sepsis. 4. Acute respiratory failure, requiring mechanical ventilation. PLAN: It is encouraging that her Levophed has been weaned off. She will continue on antibiotics. I have turned her respiratory rate in her FiO2 down and I would anticipate being able to extubate her tomorrow, if today goes well. She will continue on the meropenem. I have decreased her IV fluids. I have updated the family that was at bedside. We will try to initiate tube feeds for later today.
--- NOTE | 2017-09-10 10:53 | PRG ---
DATE OF SERVICE: 09/10/2017 INPATIENT PROGRESS NOTE SUBJECTIVE: The patient intubated, she is alert and oriented, responds to commands. Family at bedside. Events of the last 24 hours reviewed. She was transitioned to the ICU setting and intubated due to respiratory distress acidosis. Neurology has been consulted regarding possible CVA, CT negative. PHYSICAL EXAMINATION: VITAL SIGNS: T-max 103 yesterday prior to ureteral stent placement. Subsequently, she has been afebrile, off Levophed. Blood pressure is stable at 106/63. Urine output, clear dilute urine. ABDOMEN: Soft, nontender, nondistended. GENERAL: Patient intubated and responds to commands, alert and oriented. No CVA tenderness is appreciated. LABORATORY DATA: White count 29,000, hemoglobin 10, platelet 269, 27 bands. Creatinine stable at 2.0, previously 2.2, baseline renal insufficiency noted, on IV meropenem. IMPRESSION AND PLAN: 1. Ms. Thapa is an 87-year-old female postop day #1 status post cystoscopy, ureteral stent placement secondary to 1.2-2 cm left proximal ureteral calculi with positive nitrite urine. 2. Urosepsis. 3. Respiratory failure, improving. Expect patient probably will be able to be extubated tomorrow. Continue broad spectrum antibiotics and ICU monitoring. Recommend blood culture as it was not obtained. Urine culture is pending thus far. will inform Dr. Forbes tomorrow morning to resume her care. STEPHANIE
[2017-09-10] MEDS: Lorazepam 2 MG/ML VIAL SLOW IVP PRN (12:00)
--- NOTE | 2017-09-10 15:03 | PDOC.PN ---
- Subjective Encounter Start Date: 09/10/17 Encounter Start Time: 14:15 PT remains intubated now, She si off of Sedation, pain is controlled. discussed with nurse, pt has drop in BP from ativan. giving Bolus of Fluid now - Objective MAR Reviewed: Yes Vital Signs & Weight: Vital Signs (12 hours) Temp Pulse Resp BP Pulse Ox 09/10/17 14:00 10 L 09/10/17 12:09 101 H 102/47 L 09/10/17 12:00 98.4 F 10 L 09/10/17 10:00 15 09/10/17 08:00 98.8 F 90 20 96 09/10/17 06:40 83 113/51 L 09/10/17 06:00 20 09/10/17 04:00 99.3 F 20 09/10/17 03:48 74 Weight Weight 136 lb 10.986 oz Most Recent Monitor Data Heart Rate from ECG 97 NIBP 85/64 NIBP BP-Mean 78 Respiration from ECG 28 SpO2 98 I&O: 09/09/17 09/10/17 09/11/17 06:59 06:59 06:59 Intake Total 3028 372 Output Total 1080 370 Balance 1948 2 Result Diagrams: 09/10/17 05:30 09/10/17 05:30 Additional Labs: Accuchecks 09/09/17 12:49 POC Glucose 139 H Radiology Reviewed by me: Yes Phys Exam - Physical Examination Neck: no nodes, no JVD Respiratory: no wheezing, no rales Cardiovascular: RRR, no significant murmur Gastrointestinal: soft, non-tender Musculoskeletal: no edema, pulses present Dx/Plan (1) Acute encephalopathy Code(s): G93.40 - ENCEPHALOPATHY, UNSPECIFIED Status: Acute Comment: Unknown cause, CT head negative, Will Do MRI when pt is more stable. Neurology consulted. Coral now, (2) Hypotension due to drugs Status: Acute Comment: GIven IV fluid bolus today again, Will Hold the Cardizem Drip, consulted Cardiology,Will continue to Monitor,pt is off of levophed now. Hypotension likely from Septic Shock. (3) Atrial fibrillation with RVR Code(s): I48.91 - UNSPECIFIED ATRIAL FIBRILLATION Status: Acute Comment: Will get Echo for r/o wall motion abnormality.Coral echo, cardiology following. (4) Acute unilateral obstructive uropathy Code(s): N13.9 - OBSTRUCTIVE AND REFLUX UROPATHY, UNSPECIFIED Status: Acute Comment: PT had Right ure[facility]ric Stent, [facility] urology following, good urine output now. (5) Hydronephrosis, right Code(s): N13.30 - UNSPECIFIED HYDRONEPHROSIS Status: Acute Comment: mild improveemnt of Renal fucntions , continue to Monitor. (6) COPD (chronic obstructive pulmonary disease) Status: Chronic Qualifiers: COPD type: chronic bronchitis Chronic bronchitis type: unspecified Qualified Code(s): J42 - Unspecified chronic bronchitis Comment: No evidence of COPd exacerbation. (7) HTN (hypertension) Code(s): I10 - ESSENTIAL (PRIMARY) HYPERTENSION Status: Chronic Qualifiers: Hypertension type: essential hypertension Qualified Code(s): I10 - Essential (primary) hypertension - Plan cont current plan of care, knowles catheter, continue antibiotics, respiratory therapy, DVT proph w/lovenox * . - Discharge Day Encounter end time: 14:50 Review of Systems - Review of Systems Other: Unable to obtian beciase of Intubation - Medications/Allergies Allergies/Adverse Reactions: Allergies Allergy/AdvReac Type Severity Reaction Status Date / Time No Known Allergies Allergy Verified 09/19/16 05:52 Medications: Current Medications Apixaban (Eliquis) 2.5 mg PO BID [facility] Last Admin: 09/10/17 09:14 Dose: 2.5 mg Hydrocortisone Sodium Succinate (Solu-Cortef) 50 mg IVP Q6HR [facility] Stop: 09/16/17 18:01 Last Admin: 09/10/17 12:00 Dose: 50 mg Meropenem 1 gm/ Sterile Water 20 mls @ 240 mls/hr SLOW IVP 0100,0900,1700 [facility] Last Admin: 09/10/17 08:47 Dose: 20 mls Ascorbic Acid 1,500 mg/ Sodium (Chloride) 53 mls @ 100 mls/hr IVPB Q6HR [facility] Stop: 09/13/17 12:32 Last Admin: 09/10/17 12:44 Dose: 53 mls Norepinephrine Bitartrate (Levophed) 250 mls @ 0 mls/hr IVPB INF [facility]; Titrate PRN Reason: Protocol Last Admin: 09/09/17 18:39 Dose: 250 mls Thiamine HCl 200 mg/ Sodium (Chloride) 52 mls @ 100 mls/hr IVPB Q12HR [facility] Stop: 09/13/17 09:32 Last Admin: 09/10/17 07:31 Dose: 52 mls Potassium Chloride 40 meq/ (Sodium Chloride) 270 mls @ 135 mls/hr IVPB ASDIR PRN PRN Reason: FOR SERUM K+ 2.5 - 3.5 Potassium Chloride 40 meq/ (Device) 100 mls @ 50 mls/hr IVPB ASDIR PRN PRN Reason: FOR SERUM K+ 2.5 - 3.5 Magnesium Sulfate 1 gm/ Sodium (Chloride) 102 mls @ 102 mls/hr IV PRN PRN PRN Reason: MAG LEVEL 1.4 - 2.0 Magnesium Sulfate 2 gm/ Device 100 mls @ 100 mls/hr IVPB ASDIR PRN PRN Reason: MAGNESIUM < 1.4 Potassium Phosphate 9 mmol/ (Sodium Chloride) 103 mls @ 25.75 mls/hr IVPB ASDIR PRN PRN Reason: Phosphate 1.0-1.8 Potassium Phosphate 12 mmol/ (Sodium Chloride) 254 mls @ 63.5 mls/hr IV ASDIR PRN PRN Reason: Serum phosphate 0.5-0.9 Potassium Phosphate 15 mmol/ (Sodium Chloride) 255 mls @ 63.75 mls/hr IV ASDIR PRN PRN Reason: Serum Phos < 0.5 Fentanyl (Fentanyl Cadd) 250 mls @ 0 mls/hr IVPB INF MICHAEL; Titrate PRN Reason: Protocol Stop: 10/09/17 14:31 Last Admin: 09/09/17 14:55 Dose: 250 mls Fentanyl Citrate (Fentanyl Bolus) 250 mls @ 0 mls/hr IVPB PRN PRN; As Directed PRN Reason: Breakthrough pain Stop: 10/09/17 14:31 Sodium Chloride (Normal Saline 0.9%) 1,000 mls @ 70 mls/hr IV .[id number] [facility] Last Admin: 09/10/17 08:52 Dose: 1,000 mls Levothyroxine Sodium (Synthroid) 112 mcg PER TUBE 0600 [facility] Last Admin: 09/10/17 05:27 Dose: 112 mcg Lorazepam (Ativan) 2 mg SLOW IVP Q2H PRN PRN Reason: Anxiety to achieve Almazan 2-3 Stop: 10/09/17 14:31 Last Admin: 09/10/17 12:00 Dose: 2 mg Magnesium Oxide (Magnesium Oxide) 400 mg PO BIDPRN PRN PRN Reason: FOR SERUM MAG 1.4 - 2.0 Magnesium Oxide (Magnesium Oxide) 800 mg PO PRN PRN PRN Reason: FOR SERUM MAG < 1.4 Miscellaneous Medication (Phos-Nak) 1 pkt PO TIDPRN PRN PRN Reason: FOR PHOS LEVEL 1.0 - 1.8 Miscellaneous Medication (Phos-Nak) 2 pkt PO TIDPRN PRN PRN Reason: FOR PHOS LEVEL 0.5 - 1.0 Morphine Sulfate (Morphine) 2 mg SLOW IVP Q2H PRN PRN Reason: Breakthrough pain Stop: 10/09/17 14:31 Ccu Electrolyte (Replacement Protocol) 0 each FS PRN PRN PRN Reason: FOR ELECTROLYTE REPLACEMENT Discontinue Previous Narcotic Pain Medications And Benzodiazepines 1 each FS .ONE [facility] Stop: 10/09/17 14:31 Pantoprazole Sodium (Protonix) 40 mg IVP DAILY [facility] Last Admin: 09/10/17 08:40 Dose: 40 mg Potassium Chloride (K-Dur) 40 meq PO ASDIR PRN PRN Reason: FOR SERUM K+ 2.5 - 3.5 Potassium Chloride (Klor-Con) 40 meq PER TUBE ASDIR PRN PRN Reason: FOR SERUM K+ 2.5-3.5 Propofol (Diprivan) 1,000 mg IV INF PRN; Protocol PRN Reason: TO ACHIEVE ALMAZAN SCORE 2-3 Stop: 10/09/17 14:31 Senna (Senokot) 2 tab PO BID [facility] Last Admin: 09/10/17 09:14 Dose: 2 tab Sodium Chloride (Flush - Normal Saline) 10 ml IVF Q12HR [facility] Last Admin: 09/10/17 09:14 Dose: 10 ml Sodium Chloride (Flush - Normal Saline) 10 ml IVF PRN PRN PRN Reason: Saline Flush Trazodone HCl (Desyrel) 50 mg PO HS [facility] Last Admin: 09/09/17 21:18 Dose: 50 mg
[2017-09-10] MEDS: traZODone HCl 50 MG TAB PO SCH (19:54)
--- NOTE | 2017-09-10 21:19 | CON ---
DATE OF CONSULTATION: 09/10/2017 NEUROLOGY CONSULTATION CONSULTING PHYSICIAN: Hospitalist Service. IMPRESSION: Transient encephalopathy, likely secondary to sepsis plus morphine overdose. The patien t appears to be bright, alert, and has a nonfocal exam at this point. PLAN: Recall if you have further questions. HISTORY OF PRESENT ILLNESS: Ms. Thapa is an 87-year-old white female, who has been diagnosed with ur osepsis secondary to an obstructive nephrolithiasis. She was given some morphine postoperatively and depression of mental status, she had some gurgling respirations and was subsequently intubated. She is now on a fentanyl drip. She had a CT scan of the brain done yesterday, which did not show any ac shelly abnormalities. The patient is now cooperative and the nurses report that she has been acting owen ropriately. PAST MEDICAL HISTORY: As per chart. SOCIAL HISTORY: Unremarkable. FAMILY HISTORY: Noncontributory. REVIEW OF SYSTEMS: The patient reports 5/10 pain. PHYSICAL EXAMINATION: GENERAL: She is a healthy appearing elderly woman on ventilatory support. HEENT: Pupils equal and reactive. Conjunctivae clear. She is orally intubated. NECK: Supple. EXTREMITIES: No cyanosis. NEUROLOGIC: She is alert and cooperative. She follows commands appropriately. No focal deficits we re noted. No abnormal movements were seen. Plantar responses were downgoing. SUMMARY: This is an 87-year-old woman, who had some transient lethargy secondary to medication and i nfection. I do not see anything remarkable at this point. I would be happy to see her in follow up if needed.
[2017-09-11] MEDS: Meropenem 1 GM in Sterile Water 20 ML SLOW IVP SCH ×2 (01:03→09:49)
[2017-09-11 04:43] LABS: ALT (SGPT) 25 U/L (8-55); AST (SGOT) 48 U/L (5-34); Albumin 2.7 g/dL (3.4-4.8); Alkaline Phosphatase 59 U/L (40-150); Anion Gap 13 mmol/L (10-20); BUN (Urea Nitrogen) 47 mg/dL (9.8-20.1); Bilirubin, Total 0.2 mg/dL (0.2-1.2); Calc. Creatinine Clearance 19 mL/min (70-130); Calcium 7.5 mg/dL (7.8-10.44); Carbon Dioxide 20 mmol/L (23-31); Chloride 114 mmol/L (98-107); Estimated GFR-MDRD 23; Globulin 2.2 g/dL (2.4-3.5); Glucose 159 mg/dL (83-110); Potassium 4.5 mmol/L (3.5-5.1); Protein, Total 4.9 g/dL (6.0-8.3); Sodium 142 mmol/L (136-145)
[2017-09-11 04:50] LABS: Troponin I 2.594 ng/mL (< 0.028)
[2017-09-11 05:01] LABS: Band 23 % (5-11); Hemoglobin 9.8 g/dL (12.0-16.0); Lymphocytes 5 % (21-51); MDiff Complete? YES; Macrocytosis SLIGHT = 6-15 cells (100X) (0-5/hpf); Mean Corpuscular Hemoglobin 32.7 pg (27.0-31.0); Mean Corpuscular Volume 99.1 fl (81.0-99.0); Mean Platelet Volume 8.5 fL (7.4-10.4); Metamyelocyte 1 % (0-0); Monocytes 3 % (0-10); Neutrophil 68 % (42-75); PLT Morphology Comment Appears Adequate; Platelet Count 187 thou/uL (130-400); RBC Distribution Width 13.9 % (11.5-14.5); Red Blood Cell (RBC) Count 2.99 mill/uL (4.20-5.40); White Blood Cell (WBC) Count 29.7 thou/uL (4.8-10.8)
[2017-09-11] MEDS: Hydrocortisone Sod Succ/PF 100 mg/2 ml Vial IVP SCH ×4 (05:32→23:40)
[2017-09-11] MEDS: Levothyroxine Sodium 112 MCG TAB PER TUBE SCH (05:33)
[2017-09-11 07:22] LABS: Actual Bicarbonate (HCO3a) 20.2 mEq/L (22-26); Base Excess (BEa) -5.1 mEq/L (0 (+/-) 2.5); CO2 Tension 38.1 mmHg (35.0-45.0); Calcium, Ionized 1.1 mmol/L (1.12-1.30); Hematocrit-ABG 27.9 % (36.0-47.0); O2 Tension (PaO2) 118.3 mmHg (80.0-100.0); Puncture Site RRA; pH, Arterial 7.34 (7.35-7.45)
[2017-09-11 07:23] LABS: ALV-art Gradient 119.275 (0-20)
--- NOTE | 2017-09-11 08:27 | RAD ---
PORTABLE CHEST 1 VIEW: DATE: 09/11/17. TIME: 5:11 a.m. HISTORY: Respiratory failure. FINDINGS: Comparison is made with the exam of previous day. Endotracheal and nasogastric tubes remain in place. The heart size is stable. There are bilateral p leural effusions. No pneumothoraces are seen. Bilateral pleural effusions and adjacent infiltrates/ atelectatic changes are again noted. A right-sided ureteral stent is redemonstrated. IMPRESSION: Stable exam. POS: [facility]
[2017-09-11] MEDS ORDERED: Furosemide 40 MG/4 ML VIAL SLOW IVP SCH (08:30)
--- NOTE | 2017-09-11 08:51 | PRG ---
DATE OF SERVICE: 09/11/2017 Thirty five minutes critical care time. SUBJECTIVE: The patient remains intubated on mechanical ventilation. She will wake up and follow co mmands when sedation is stopped. PHYSICAL EXAMINATION: VITAL SIGNS: Temperature is 98.7 with a max 99, pulse 78, blood pressure 115/58. A 24-hour intake 2 208, output 955. HEENT: Unremarkable. NECK: No JVD. CARDIAC: S1, S2 regular, without murmur. LUNGS: Diminished breath sounds with crackles. ABDOMEN: Soft, nontender. EXTREMITIES: Edematous. LABORATORY DATA: Sodium 142, potassium 4.5, chloride 114, CO2 of 20, BUN 47, creatinine 2.1, glucose 159. Troponin 2.9. PH 7.34, pCO2 of 38, pO2 of 118 on SIMV rate 10, tidal volume 450, PEEP 5, pres sure support 10, FIO2 of 40%. White blood cell count 29.7, hemoglobin 9.8, hematocrit 29.6, platelet count 187. Cultures are growing out E. coli which is sensitive to all the antibiotics. ASSESSMENT: 1. Acute respiratory failure secondary to septic shock from pyelonephritis. 2. Fluid overload. 3. Acute respiratory failure requiring mechanical ventilation. PLAN: The patient's x-ray looks terrible. She is volume overloaded and is not making much in the wa y of urine. I think this is probably going to take some time. I think her chances of failing extuba tion will be too great to proceed with that at this time. I will try to diurese her some. We will c ontinue supportive care with the antibiotics.
[2017-09-11] MEDS: Apixaban 5 MG TAB PO SCH ×2 (09:41→20:48)
[2017-09-11] MEDS: Senokot 8.6 MG TAB PO SCH ×2 (09:41→20:47)
[2017-09-11] MEDS: ALPRAZolam 0.25 MG TAB PER TUBE PRN ×2 (09:41→20:48)
[2017-09-11] MEDS: Pantoprazole 40 MG VIAL IVP SCH (09:51)
--- NOTE | 2017-09-11 12:27 | PDOC.PN ---
- Subjective Encounter Start Date: 09/11/17 Encounter Start Time: 11:05 -: old records requested/rev Pt seen and examined, chart reviewed in its entirety, this is my first visit with this patient. Pt intubated on vent, some pulm edema, weaning/extubation aborted until tomorrow. Pt barely sedated on 100mcg of fentayl. No f/C, no n/V/d/c, no CP 10 point ROS performed and neg for all systems except as above - Objective MAR Reviewed: Yes Vital Signs & Weight: Vital Signs (12 hours) Temp Pulse Resp Pulse Ox 09/11/17 12:00 15 09/11/17 10:14 81 09/11/17 10:00 10 L 09/11/17 08:00 98.4 F 81 18 97 09/11/17 07:03 97 09/11/17 07:00 98.7 F 09/11/17 06:00 15 09/11/17 04:00 99 F 17 09/11/17 02:36 78 09/11/17 02:00 13 Weight Weight 139 lb 5.314 oz Most Recent Monitor Data Heart Rate from ECG 113 NIBP 129/66 NIBP BP-Mean 79 Respiration from ECG 17 SpO2 96 I&O: 09/10/17 09/11/17 09/12/17 06:59 06:59 06:59 Intake Total 3028 2208 Output Total 1080 955 875 Balance 1948 1253 -875 Result Diagrams: 09/11/17 04:00 09/11/17 04:00 Radiology Reviewed by me: Yes EKG Reviewed by me: Yes Phys Exam - Physical Examination Constitutional: NAD HEENT: PERRLA, moist MMs, sclera anicteric, oral pharynx no lesions oral ETT in place Neck: no nodes, no JVD, supple, full ROM Respiratory: no wheezing, no rhonchi bilateral rales posteriorly Cardiovascular: RRR, no significant murmur, no rub Gastrointestinal: soft, non-tender, no distention, positive bowel sounds Musculoskeletal: pulses present, edema present Neurological: non-focal, normal sensation, moves all 4 limbs Lymphatic: no nodes Psychiatric: normal affect Skin: no rash, normal turgor, cap refill <2 seconds Dx/Plan (1) Metabolic encephalopathy Code(s): G93.41 - METABOLIC ENCEPHALOPATHY Status: Acute (2) Acute unilateral obstructive uropathy Code(s): N13.9 - OBSTRUCTIVE AND REFLUX UROPATHY, UNSPECIFIED Status: Acute Comment: PT had Right uretric Stent, Will closley monitor. urology following, good urine output now. (3) Hydronephrosis, right Code(s): N13.30 - UNSPECIFIED HYDRONEPHROSIS Status: Acute Comment: mild improveemnt of Renal fucntions , continue to Monitor. (4) Atrial fibrillation with RVR Code(s): I48.91 - UNSPECIFIED ATRIAL FIBRILLATION Status: Acute Comment: Will get Echo for r/o wall motion abnormality.Stbale echo, cardiology following. (5) CKD (chronic kidney disease) stage 3, GFR 30-59 ml/min Status: Chronic (6) COPD (chronic obstructive pulmonary disease) Status: Chronic Qualifiers: COPD type: chronic bronchitis Chronic bronchitis type: unspecified Qualified Code(s): J42 - Unspecified chronic bronchitis Comment: No evidence of COPd exacerbation. (7) HTN (hypertension) Code(s): I10 - ESSENTIAL (PRIMARY) HYPERTENSION Status: Chronic Qualifiers: Hypertension type: essential hypertension Qualified Code(s): I10 - Essential (primary) hypertension - Plan cont current plan of care, continue antibiotics, PT/OT, respiratory therapy, DVT proph w/lovenox * .
[2017-09-11] MEDS: Cefepime 1 GM, Admixture Fee 1 EACH in Sterile Water 10 ML SLOW IVP SCH (14:51)
[2017-09-11 14:58] VITALS: BMI 23.9
[2017-09-11] MEDS: Sodium Chloride 0.9% 1,000 ML IV SCH (17:04)
[2017-09-11] MEDS: traZODone HCl 50 MG TAB PO SCH (20:48)
[2017-09-12] MEDS ORDERED: fentaNYL Citrate/PF 2,000 MCG in Sodium Chloride 0.9% 60 ML IV SCH (00:56)
[2017-09-12 05:11] LABS: ALT (SGPT) 31 U/L (8-55); AST (SGOT) 35 U/L (5-34); Albumin 2.8 g/dL (3.4-4.8); Alkaline Phosphatase 77 U/L (40-150); Anion Gap 13 mmol/L (10-20); BUN (Urea Nitrogen) 55 mg/dL (9.8-20.1); Bilirubin, Total 0.3 mg/dL (0.2-1.2); Calc. Creatinine Clearance 25 mL/min (70-130); Carbon Dioxide 23 mmol/L (23-31); Chloride 115 mmol/L (98-107); Estimated GFR-MDRD 29; Globulin 2.1 g/dL (2.4-3.5); Glucose 182 mg/dL (83-110); Potassium 3.5 mmol/L (3.5-5.1); Protein, Total 4.9 g/dL (6.0-8.3); Sodium 147 mmol/L (136-145)
[2017-09-12 05:28] LABS: Band 13 % (5-11); Lymphocytes 2 % (21-51); MDiff Complete? YES; Mean Corpuscular HGB CONC 32.4 g/dL (32.0-36.0); Mean Corpuscular Hemoglobin 31.7 pg (27.0-31.0); Mean Platelet Volume 8.7 fL (7.4-10.4); Monocytes 1 % (0-10); Neutrophil 84 % (42-75); PLT Morphology Comment Appears Adequate; Platelet Count 197 thou/uL (130-400); RBC Distribution Width 13.7 % (11.5-14.5); Red Blood Cell (RBC) Count 3.15 mill/uL (4.20-5.40); White Blood Cell (WBC) Count 24.9 thou/uL (4.8-10.8)
[2017-09-12] MEDS: Levothyroxine Sodium 112 MCG TAB PER TUBE SCH (05:52)
[2017-09-12] MEDS: Hydrocortisone Sod Succ/PF 100 mg/2 ml Vial IVP SCH ×3 (05:52→21:30)
[2017-09-12] MEDS: Sodium Chloride 0.9% 1,000 ML IV SCH ×2 (05:54→08:48)
[2017-09-12 07:32] LABS: CO2 Tension 35.3 mmHg (35.0-45.0); O2 Tension (PaO2) 90.5 mmHg (80.0-100.0); pH, Arterial 7.42 (7.35-7.45)
[2017-09-12] MEDS ORDERED: DC Sedation Protocol FS ONE (07:32)
[2017-09-12 07:33] LABS: Actual Bicarbonate (HCO3a) 22.2 mEq/L (22-26); Base Excess (BEa) -1.9 mEq/L (0 (+/-) 2.5); Hematocrit-ABG 30.4 % (36.0-47.0); Hemoglobin (Hb) 10.5 g/dL (12.0-16.0)
[2017-09-12 07:34] LABS: Analyzer IN Cardio ER; Calcium, Ionized 1.2 mmol/L (1.12-1.30); Puncture Site L.R.
--- NOTE | 2017-09-12 07:34 | PDOC.PULCC ---
CCU Progress Note: Subj/Obj - Subjective Date: 09/12/17 Time: 07:33 Narrative: Awake and follows - Objective Allergies/Adverse Reactions: Allergies Allergy/AdvReac Type Severity Reaction Status Date / Time No Known Allergies Allergy Verified 09/19/16 05:52 Medications: Current Medications Alprazolam (Xanax) 0.25 mg PER TUBE QID PRN PRN Reason: Anxiety/Agitation Last Admin: 09/11/17 20:48 Dose: 0.25 mg Apixaban (Eliquis) 2.5 mg PO BID [facility] Last Admin: 09/11/17 20:48 Dose: 2.5 mg Ascorbic Acid 1,500 mg/ Sodium (Chloride) 53 mls @ 100 mls/hr IVPB Q6HR [facility] Stop: 09/13/17 12:32 Last Admin: 09/12/17 05:53 Dose: 53 mls Thiamine HCl 200 mg/ Sodium (Chloride) 52 mls @ 100 mls/hr IVPB Q12HR [facility] Stop: 09/13/17 09:32 Last Admin: 09/11/17 20:48 Dose: 52 mls Potassium Chloride 40 meq/ (Sodium Chloride) 270 mls @ 135 mls/hr IVPB ASDIR PRN PRN Reason: FOR SERUM K+ 2.5 - 3.5 Potassium Chloride 40 meq/ (Device) 100 mls @ 50 mls/hr IVPB ASDIR PRN PRN Reason: FOR SERUM K+ 2.5 - 3.5 Magnesium Sulfate 1 gm/ Sodium (Chloride) 102 mls @ 102 mls/hr IV PRN PRN PRN Reason: MAG LEVEL 1.4 - 2.0 Magnesium Sulfate 2 gm/ Device 100 mls @ 100 mls/hr IVPB ASDIR PRN PRN Reason: MAGNESIUM < 1.4 Potassium Phosphate 9 mmol/ (Sodium Chloride) 103 mls @ 25.75 mls/hr IVPB ASDIR PRN PRN Reason: Phosphate 1.0-1.8 Potassium Phosphate 12 mmol/ (Sodium Chloride) 254 mls @ 63.5 mls/hr IV ASDIR PRN PRN Reason: Serum phosphate 0.5-0.9 Potassium Phosphate 15 mmol/ (Sodium Chloride) 255 mls @ 63.75 mls/hr IV ASDIR PRN PRN Reason: Serum Phos < 0.5 Fentanyl Citrate (Fentanyl Bolus) 250 mls @ 0 mls/hr IVPB PRN PRN; As Directed PRN Reason: Breakthrough pain Stop: 10/09/17 14:31 Cefepime HCl 1 gm/Miscellaneous Medication 1 each/ Sterile Water 10 mls @ 120 mls/hr SLOW IVP 1400 MICHAEL Last Admin: 09/11/17 14:51 Dose: 10 mls Fentanyl Citrate 2,000 mcg/ (Sodium Chloride) 100 mls @ 0 mls/hr IV INF MICHAEL; Per Protocol PRN Reason: Protocol Stop: 10/12/17 00:56 Last Admin: 09/12/17 01:33 Dose: 100 mls Levothyroxine Sodium (Synthroid) 112 mcg PER TUBE 0600 [facility] Last Admin: 09/12/17 05:52 Dose: 112 mcg Lorazepam (Ativan) 2 mg SLOW IVP Q2H PRN PRN Reason: Anxiety to achieve Almazan 2-3 Stop: 10/09/17 14:31 Last Admin: 09/10/17 12:00 Dose: 2 mg Magnesium Oxide (Magnesium Oxide) 400 mg PO BIDPRN PRN PRN Reason: FOR SERUM MAG 1.4 - 2.0 Magnesium Oxide (Magnesium Oxide) 800 mg PO PRN PRN PRN Reason: FOR SERUM MAG < 1.4 Miscellaneous Medication (Phos-Nak) 1 pkt PO TIDPRN PRN PRN Reason: FOR PHOS LEVEL 1.0 - 1.8 Miscellaneous Medication (Phos-Nak) 2 pkt PO TIDPRN PRN PRN Reason: FOR PHOS LEVEL 0.5 - 1.0 Morphine Sulfate (Morphine) 2 mg SLOW IVP Q2H PRN PRN Reason: Breakthrough pain Stop: 10/09/17 14:31 Ccu Electrolyte (Replacement Protocol) 0 each FS PRN PRN PRN Reason: FOR ELECTROLYTE REPLACEMENT Discontinue Previous Narcotic Pain Medications And Benzodiazepines 1 each FS .ONE [facility] Stop: 10/09/17 14:31 Pantoprazole Sodium (Protonix) 40 mg IVP DAILY [facility] Last Admin: 09/11/17 09:51 Dose: 40 mg Potassium Chloride (K-Dur) 40 meq PO ASDIR PRN PRN Reason: FOR SERUM K+ 2.5 - 3.5 Potassium Chloride (Klor-Con) 40 meq PER TUBE ASDIR PRN PRN Reason: FOR SERUM K+ 2.5-3.5 Propofol (Diprivan) 1,000 mg IV INF PRN; Protocol PRN Reason: TO ACHIEVE ALMAZAN SCORE 2-3 Stop: 10/09/17 14:31 Senna (Senokot) 2 tab PO BID [facility] Last Admin: 09/11/17 20:47 Dose: 2 tab Sodium Chloride (Flush - Normal Saline) 10 ml IVF Q12HR [facility] Last Admin: 09/11/17 20:48 Dose: 10 ml Sodium Chloride (Flush - Normal Saline) 10 ml IVF PRN PRN PRN Reason: Saline Flush Trazodone HCl (Desyrel) 50 mg PO HS [facility] Last Admin: 09/11/17 20:48 Dose: 50 mg MAR Reviewed: Yes Vital Signs and I&O: Vital Signs Temp 98.4 F 09/12/17 04:00 Pulse 77 09/12/17 07:13 Resp 14 09/12/17 06:00 BP 172/86 H 09/12/17 07:13 Pulse Ox 98 09/11/17 20:00 Intake & Output 09/11/17 09/12/17 09/12/17 18:59 06:59 18:59 Intake Total 1225 1043 Output Total 2280 960 Balance -1055 83 Weight 139 lb 5.314 oz Intake: Intake, IV Amount 754 519 Sodium Chloride 0.9% 1, 754 519 000 ml @ 70 mls/hr IV . [id number] [facility] Rx#:[id number] Tube Feeding 411 424 Tube Irrigant 60 100 Output: Output, [place] 2280 960 Other: Voiding Method Indwelling Catheter Indwelling Catheter Vent Setting: Positive End Expiratory 5 Pressure % Fraction of Inspired Oxygen 40 (FIO2) See ABG Spontaneous Breathing Test: done (R IJ from 09/10) CCU Progress Note: Exam - Physical Exam Constitutional: NAD HEENT: PERRLA Neck: no nodes, no JVD Cardiovascular: RRR Respiratory: clear to auscultation bilaterally Gastrointestinal: soft, non-tender Musculoskeletal: edema present Neurological: non-focal Lymphatic: no nodes Psychiatric: normal affect, A&O x 3 Skin: no rash CCU Progress Note: Data - Labs Result Diagrams: 09/12/17 04:35 09/12/17 04:35 Lab results: Laboratory Results 09/10/17 09/11/17 09/11/17 06:45 04:00 04:00 WBC 29.7 H RBC 2.99 L Hgb 9.8 L Hct 29.6 L MCV 99.1 H MCH 32.7 H MCHC 33.0 RDW 13.9 Plt Count 187 MPV 8.5 Neutrophils % (Manual) 68 Band Neuts % (Manual) 23 H Lymphocytes % (Manual) 5 L Monocytes % (Manual) 3 Metamyelocytes % (Man) 1 H Plt Morphology Comment Appears Adequate Macrocytosis SLIGHT = 6-15 cells Specimen Type ARTERIAL Puncture Site RBA Bicarbonate Actual 19.2 L ABG pH 7.46 H ABG pCO2 27.6 L ABG pO2 124.1 H ABG O2 Sat Calc/Ronn 98.7 ABG O2 Content 13.8 L ABG Base Excess -3.7 L ABG Hematocrit 29.6 L ABG Hemoglobin 9.9 L ABG Oxyhemoglobin ABG Carboxyhemoglobin 0.6 ABG Methemoglobin 0.6 Gavino Test NOT DONE A-a O2 Gradient 269.200 H Sodium 143 142 Potassium 4.2 4.5 Chloride 108 H 114 H Ionized Calcium 1.1 L Mode of Support SIMV/PSV Mechanical Rate 20 Inspired O2 60 Tidal Volume 450 Pressure Support 10 PEEP or CPAP 5.0 Carbon Dioxide 20 L Anion Gap 13 BUN 47 H Creatinine 2.07 H Estimated GFR (MDRD) 23 Glucose 159 H Calcium 7.5 L Total Bilirubin 0.2 AST 48 H ALT 25 Alkaline Phosphatase 59 Troponin I Serum Total Protein 4.9 L Albumin 2.7 L Globulin 2.2 L Albumin/Globulin Ratio 1.2 09/11/17 09/11/17 09/12/17 04:00 07:08 04:35 WBC RBC Hgb Hct MCV MCH MCHC RDW Plt Count MPV Neutrophils % (Manual) Band Neuts % (Manual) Lymphocytes % (Manual) Monocytes % (Manual) Metamyelocytes % (Man) Plt Morphology Comment Macrocytosis Specimen Type ARTERIAL Puncture Site RRA Bicarbonate Actual 20.2 L ABG pH 7.34 L ABG pCO2 38.1 ABG pO2 118.3 H ABG O2 Sat Calc/Ronn 98.3 ABG O2 Content 12.5 L ABG Base Excess -5.1 L ABG Hematocrit 27.9 L ABG Hemoglobin 9.0 L ABG Oxyhemoglobin 97.1 H ABG Carboxyhemoglobin 0.8 ABG Methemoglobin 0.5 Gavino Test A-a O2 Gradient 119.275 H Sodium 145 147 H Potassium 4.4 3.5 Chloride 109 H 115 H Ionized Calcium 1.1 L Mode of Support SIMV Mechanical Rate 10 Inspired O2 40 Tidal Volume 450 Pressure Support 10 PEEP or CPAP 5.0 Carbon Dioxide 23 Anion Gap 13 BUN 55 H Creatinine 1.67 H Estimated GFR (MDRD) 29 Glucose 182 H Calcium 8.0 Total Bilirubin 0.3 AST 35 H ALT 31 Alkaline Phosphatase 77 Troponin I 2.594 H* Serum Total Protein 4.9 L Albumin 2.8 L Globulin 2.1 L Albumin/Globulin Ratio 1.3 09/12/17 04:35 WBC 24.9 H RBC 3.15 L Hgb 10.0 L Hct 30.9 L MCV 98.0 MCH 31.7 H MCHC 32.4 RDW 13.7 Plt Count 197 MPV 8.7 Neutrophils % (Manual) 84 H Band Neuts % (Manual) 13 H Lymphocytes % (Manual) 2 L Monocytes % (Manual) 1 Metamyelocytes % (Man) Plt Morphology Comment Appears Adequate Macrocytosis Specimen Type Puncture Site Bicarbonate Actual ABG pH ABG pCO2 ABG pO2 ABG O2 Sat Calc/Ronn ABG O2 Content ABG Base Excess ABG Hematocrit ABG Hemoglobin ABG Oxyhemoglobin ABG Carboxyhemoglobin ABG Methemoglobin Gavino Test A-a O2 Gradient Sodium Potassium Chloride Ionized Calcium Mode of Support Mechanical Rate Inspired O2 Tidal Volume Pressure Support PEEP or CPAP Carbon Dioxide Anion Gap BUN Creatinine Estimated GFR (MDRD) Glucose Calcium Total Bilirubin AST ALT Alkaline Phosphatase Troponin I Serum Total Protein Albumin Globulin Albumin/Globulin Ratio - ABG Interpretation ABG Results: ABG pH 7.34 (7.35-7.45) L 09/11/17 07:08 ABG pCO2 38.1 mmHg (35.0-45.0) 09/11/17 07:08 ABG O2 Sat Calc/Ronn 98.3 % (94.0-100.0) 09/11/17 07:08 ABG Base Excess -5.1 mEq/L (0 (+/-) 2.5) L 09/11/17 07:08 - Radiology Interpretation Chest x-ray Status: image reviewed by me (better) CCU Progress Note: A/P - Problems (1) Acute respiratory failure with hypoxia Current Visit: Yes Status: Acute Code(s): J96.01 - ACUTE RESPIRATORY FAILURE WITH HYPOXIA (2) Acute encephalopathy Current Visit: Yes Status: Acute Code(s): G93.40 - ENCEPHALOPATHY, UNSPECIFIED (3) Ureter obstruction Current Visit: No Status: Acute Code(s): N13.5 - CROSSING VESSEL AND STRICTURE OF URETER W/O HYDRONEPHROSIS - Time Spent with Patient Time (minutes): 30 (min cc time) - Plan Plan: Passed SBT Extubate Cont IV ABX
[2017-09-12 07:35] LABS: ALV-art Gradient 152.575 (0-20)
--- NOTE | 2017-09-12 07:50 | RAD ---
PORTABLE UPRIGHT FRONTAL CHEST RADIOGRAPH: Date: 09-12-17 Comparison: 09-11-17 History: Ventilated patient. FINDINGS: There is dense nonspecific opacity in both lung bases which may signify volume loss, airspace disease and/or pleural fluid, not significantly changed. Stable endotracheal tube, right sided vascular cath eter, and nasogastric tube. Incompletely imaged stent overlies the right upper quadrant of the abdome n, likely within the tract. IMPRESSION: No significant interval change. POS: [facility]
[2017-09-12] MEDS: Senokot 8.6 MG TAB PO SCH ×2 (08:50→21:31)
[2017-09-12] MEDS: Apixaban 5 MG TAB PO SCH ×2 (09:15→21:30)
[2017-09-12] MEDS: Cefepime 1 GM, Admixture Fee 1 EACH in Sterile Water 10 ML SLOW IVP SCH (14:19)
--- NOTE | 2017-09-12 14:33 | PDOC.PN ---
- Subjective Encounter Start Date: 09/12/17 Encounter Start Time: 09:45 extubated earlier, complaints of only a sore throat. No F/C, no n/V/D/C,no CP, no SOB. No acute events overnight. Pulm notes reviewed, appreciate their input. 10 point ROs performed and neg for all systems except as per HPI - Objective Resuscitation Status: FULL MAR Reviewed: Yes Vital Signs & Weight: Vital Signs (12 hours) Temp Pulse Resp BP Pulse Ox 09/12/17 11:00 98.3 F 09/12/17 08:00 98.4 F 82 25 H 95 09/12/17 07:37 25 H 09/12/17 07:13 77 172/86 H 09/12/17 07:00 98.4 F 09/12/17 06:00 14 09/12/17 04:00 98.4 F 14 Weight Admit Weight 139 lb Weight 139 lb 5.314 oz Most Recent Monitor Data Heart Rate from ECG 57 NIBP 141/65 NIBP BP-Mean 120 Respiration from ECG 20 SpO2 96 I&O: 09/11/17 09/12/17 09/13/17 06:59 06:59 06:59 Intake Total 2208 2268 401 Output Total 955 3240 670 Balance 1253 -972 -269 Result Diagrams: 09/12/17 04:35 09/12/17 04:35 Radiology Reviewed by me: Yes EKG Reviewed by me: Yes Phys Exam - Physical Examination Constitutional: NAD HEENT: PERRLA, moist MMs, sclera anicteric, oral pharynx no lesions Neck: no nodes, no JVD, supple, full ROM Respiratory: no wheezing, no rales, no rhonchi, clear to auscultation bilateral Cardiovascular: RRR, no significant murmur, no rub Gastrointestinal: soft, non-tender, no distention, positive bowel sounds Musculoskeletal: pulses present, edema present Neurological: non-focal, normal sensation, moves all 4 limbs Lymphatic: no nodes Psychiatric: normal affect, A&O x 3 Skin: no rash, normal turgor, cap refill <2 seconds Dx/Plan (1) Acute unilateral obstructive uropathy Code(s): N13.9 - OBSTRUCTIVE AND REFLUX UROPATHY, UNSPECIFIED Status: Acute Comment: PT had Right ureteral double J stent, Will malikaley monitor. urology following, good urine output now. (2) Hydronephrosis, right Code(s): N13.30 - UNSPECIFIED HYDRONEPHROSIS Status: Acute Comment: continued improvement of renal function, Cr down to 1.67 today , continue to Monitor. (3) Atrial fibrillation with RVR Code(s): I48.91 - UNSPECIFIED ATRIAL FIBRILLATION Status: Acute Comment: Stable echo, cardiology following. (4) CKD (chronic kidney disease) stage 3, GFR 30-59 ml/min Status: Chronic (5) COPD (chronic obstructive pulmonary disease) Status: Chronic Qualifiers: COPD type: chronic bronchitis Chronic bronchitis type: unspecified Qualified Code(s): J42 - Unspecified chronic bronchitis Comment: No evidence of COPD exacerbation. (6) HTN (hypertension) Code(s): I10 - ESSENTIAL (PRIMARY) HYPERTENSION Status: Chronic Qualifiers: Hypertension type: essential hypertension Qualified Code(s): I10 - Essential (primary) hypertension (7) Metabolic encephalopathy Code(s): G93.41 - METABOLIC ENCEPHALOPATHY Status: Resolved - Plan cont current plan of care, continue antibiotics, PT/OT, respiratory therapy, out of bed/ambulate, DVT proph w/lovenox * .
[2017-09-12] MEDS: traZODone HCl 50 MG TAB PO SCH (21:30)
[2017-09-12] MEDS: ALPRAZolam 0.25 MG TAB PER TUBE PRN (21:32)
--- NOTE | 2017-09-13 01:12 | PRG ---
DATE OF SERVICE: 09/12/2017 SUBJECTIVE: Patient is comfortable. She is in no pain. She has been extubated. PHYSICAL EXAMINATION: VITAL SIGNS: Temperature 98.4, blood pressure 138/82, pulse 88, respiratory rate 16. ABDOMEN: Soft, nontender, no palpable masses. EXTREMITIES: No edema. LABORATORY DATA: Urine culture E. coli, sensitive to all antibiotics tested. IMPRESSION: Ms. Thapa was admitted to the hospital on 09/09/2017, with right-sided flank pain. She was diagnosed with right upper ureteral stone with some proximal right hydronephrosis along with some longstanding left and right renal stones. Right double-J stent was placed. She became septic and r equired ICU care and remains in the ICU at this time. Her creatinine has improved since admission. She is now hemodynamically stable. She was extubated earlier today. PLAN: Continue IV therapy and supportive care at this time. She will eventually need definitive heidi atment of the right ureteral stone by ureteroscopy or ESWL. This will be done when she is clinically stable and can be arranged as an outpatient.
[2017-09-13] MEDS: Sodium Chloride 0.9% 1,000 ML IV SCH (01:15)
[2017-09-13] MEDS: ALPRAZolam 0.25 MG TAB PER TUBE PRN ×3 (03:39→17:28)
[2017-09-13 04:32] LABS: ALT (SGPT) 64 U/L (8-55); AST (SGOT) 51 U/L (5-34); Alkaline Phosphatase 79 U/L (40-150); Anion Gap 12 mmol/L (10-20); BUN (Urea Nitrogen) 46 mg/dL (9.8-20.1); Bilirubin, Total 0.8 mg/dL (0.2-1.2); Calc. Creatinine Clearance 30 mL/min (70-130); Calcium 8.6 mg/dL (7.8-10.44); Carbon Dioxide 25 mmol/L (23-31); Chloride 115 mmol/L (98-107); Estimated GFR-MDRD 36; Globulin 2.1 g/dL (2.4-3.5); Glucose 107 mg/dL (83-110); Protein, Total 5.1 g/dL (6.0-8.3); Sodium 149 mmol/L (136-145)
[2017-09-13 05:01] LABS: Hemoglobin 10.6 g/dL (12.0-16.0); Mean Corpuscular HGB CONC 33.3 g/dL (32.0-36.0); Mean Corpuscular Hemoglobin 32.5 pg (27.0-31.0); Mean Corpuscular Volume 97.4 fl (81.0-99.0); Mean Platelet Volume 8.5 fL (7.4-10.4); Platelet Count 223 thou/uL (130-400); RBC Distribution Width 13.5 % (11.5-14.5); Red Blood Cell (RBC) Count 3.26 mill/uL (4.20-5.40); White Blood Cell (WBC) Count 20.7 thou/uL (4.8-10.8)
[2017-09-13 05:02] LABS: Band 8 % (5-11); Lymphocytes 4 % (21-51); MDiff Complete? YES; Monocytes 7 % (0-10); Neutrophil 81 % (42-75); PLT Morphology Comment Appears Adequate
[2017-09-13] MEDS: Levothyroxine Sodium 112 MCG TAB PER TUBE SCH (05:44)
[2017-09-13] MEDS ORDERED: ALPRAZolam 0.25 MG TAB PO SCH (06:45)
--- NOTE | 2017-09-13 07:42 | PDOC.PULPN ---
Progress Note: Subj/Obj - Subjective Date: 09/13/17 Time: 07:41 Narrative: c/o anxiety. Having copious diarrhea - ROS All systems: reviewed and no additional remarkable complaints except as stated - Objective Allergies/Adverse Reactions: Allergies Allergy/AdvReac Type Severity Reaction Status Date / Time No Known Allergies Allergy Verified 09/19/16 05:52 Medications: Current Medications Alprazolam (Xanax) 0.25 mg PER TUBE QID PRN PRN Reason: Anxiety/Agitation Last Admin: 09/13/17 03:39 Dose: 0.25 mg Apixaban (Eliquis) 2.5 mg PO BID [facility] Last Admin: 09/12/17 21:30 Dose: 2.5 mg Hydrocortisone Sodium Succinate (Solu-Cortef) 50 mg IVP Q12HR [facility] Stop: 09/19/17 09:01 Last Admin: 09/12/17 21:30 Dose: 50 mg Ascorbic Acid 1,500 mg/ Sodium (Chloride) 53 mls @ 100 mls/hr IVPB Q6HR [facility] Stop: 09/13/17 12:32 Last Admin: 09/13/17 05:44 Dose: 53 mls Thiamine HCl 200 mg/ Sodium (Chloride) 52 mls @ 100 mls/hr IVPB Q12HR [facility] Stop: 09/13/17 09:32 Last Admin: 09/12/17 21:29 Dose: 52 mls Potassium Chloride 40 meq/ (Sodium Chloride) 270 mls @ 135 mls/hr IVPB ASDIR PRN PRN Reason: FOR SERUM K+ 2.5 - 3.5 Potassium Chloride 40 meq/ (Device) 100 mls @ 50 mls/hr IVPB ASDIR PRN PRN Reason: FOR SERUM K+ 2.5 - 3.5 Magnesium Sulfate 1 gm/ Sodium (Chloride) 102 mls @ 102 mls/hr IV PRN PRN PRN Reason: MAG LEVEL 1.4 - 2.0 Magnesium Sulfate 2 gm/ Device 100 mls @ 100 mls/hr IVPB ASDIR PRN PRN Reason: MAGNESIUM < 1.4 Potassium Phosphate 9 mmol/ (Sodium Chloride) 103 mls @ 25.75 mls/hr IVPB ASDIR PRN PRN Reason: Phosphate 1.0-1.8 Potassium Phosphate 12 mmol/ (Sodium Chloride) 254 mls @ 63.5 mls/hr IV ASDIR PRN PRN Reason: Serum phosphate 0.5-0.9 Potassium Phosphate 15 mmol/ (Sodium Chloride) 255 mls @ 63.75 mls/hr IV ASDIR PRN PRN Reason: Serum Phos < 0.5 Cefepime HCl 1 gm/Miscellaneous Medication 1 each/ Sterile Water 10 mls @ 120 mls/hr SLOW IVP 1400 [facility] Last Admin: 09/12/17 14:19 Dose: 10 mls Sodium Chloride (Normal Saline 0.9%) 1,000 mls @ 50 mls/hr IV .Q20H [facility] Last Admin: 09/13/17 01:15 Dose: 1,000 mls Levothyroxine Sodium (Synthroid) 112 mcg PER TUBE 0600 [facility] Last Admin: 09/13/17 05:44 Dose: 112 mcg Magnesium Oxide (Magnesium Oxide) 400 mg PO BIDPRN PRN PRN Reason: FOR SERUM MAG 1.4 - 2.0 Magnesium Oxide (Magnesium Oxide) 800 mg PO PRN PRN PRN Reason: FOR SERUM MAG < 1.4 Miscellaneous Medication (Phos-Nak) 1 pkt PO TIDPRN PRN PRN Reason: FOR PHOS LEVEL 1.0 - 1.8 Miscellaneous Medication (Phos-Nak) 2 pkt PO TIDPRN PRN PRN Reason: FOR PHOS LEVEL 0.5 - 1.0 Pantoprazole Sodium (Protonix) 40 mg PO DAILY [facility] Last Admin: 09/12/17 08:49 Dose: 40 mg Potassium Chloride (K-Dur) 40 meq PO ASDIR PRN PRN Reason: FOR SERUM K+ 2.5 - 3.5 Potassium Chloride (Klor-Con) 40 meq PER TUBE ASDIR PRN PRN Reason: FOR SERUM K+ 2.5-3.5 Propofol (Diprivan) 1,000 mg IV INF PRN; Protocol PRN Reason: TO ACHIEVE ALMAZAN SCORE 2-3 Stop: 10/09/17 14:31 Senna (Senokot) 2 tab PO BID [facility] Last Admin: 09/12/17 21:31 Dose: Not Given Sodium Chloride (Flush - Normal Saline) 10 ml IVF Q12HR [facility] Last Admin: 09/12/17 21:31 Dose: 10 ml Sodium Chloride (Flush - Normal Saline) 10 ml IVF PRN PRN PRN Reason: Saline Flush Trazodone HCl (Desyrel) 50 mg PO [facility] Last Admin: 09/12/17 21:30 Dose: 50 mg MAR Reviewed: Yes Vital Signs: Vital Signs Temp 98.2 F 09/13/17 03:00 Pulse 76 09/12/17 20:00 Resp 24 H 09/12/17 20:00 BP 172/86 H 09/12/17 07:13 Pulse Ox 94 L 09/12/17 20:00 Intake & Output 09/12/17 09/13/17 09/13/17 18:59 06:59 18:59 Intake Total 1104 968 Output Total 905 1060 Balance 199 -92 Intake: Intake, IV Amount 654 668 Ascorbic Acid 1,500 mg In 150 Sodium Chloride 0.9% 50 ml @ 100 mls/hr IVPB Q6HR [facility] Rx#:[id number] Fentanyl 20 MCG/ML 250 ml 1 @ Titrate IVPB INF [facility] Rx#:[id number] Sodium Chloride 0.9% 1, 453 668 000 ml @ 50 mls/hr IV . Q20H [facility] Rx#:[id number] Thiamine HCl 200 mg In 50 Sodium Chloride 0.9% 50 ml @ 100 mls/hr IVPB Q12HR [facility] Rx#:[id number] Oral 450 300 Output: Output, [place] 905 1060 Other: Voiding Method Indwelling Catheter Indwelling Catheter # Bowel Movements 2 1 Progress Note: Exam - Physical Exam Constitutional: NAD HEENT: PERRLA, sclera anicteric Neck: no nodes, no JVD Cardiovascular: RRR, no significant murmur Respiratory: clear to auscultation bilaterally Gastrointestinal: soft, no distention, positive bowel sounds Musculoskeletal: edema present Neurological: non-focal, normal sensation, moves all 4 limbs Lymphatic: no nodes Psychiatric: normal affect, A&O x 3 Skin: no rash Progress Note: Data - Labs Result Diagrams: 09/13/17 03:45 09/13/17 03:45 Lab results: Laboratory Results 09/12/17 09/12/17 09/12/17 04:35 04:35 07:15 WBC 24.9 H RBC 3.15 L Hgb 10.0 L Hct 30.9 L MCV 98.0 MCH 31.7 H MCHC 32.4 RDW 13.7 Plt Count 197 MPV 8.7 Neutrophils % (Manual) 84 H Band Neuts % (Manual) 13 H Lymphocytes % (Manual) 2 L Monocytes % (Manual) 1 Plt Morphology Comment Appears Adequate Specimen Type ARTERIAL Puncture Site L.R. Bicarbonate Actual 22.2 ABG pH 7.42 ABG pCO2 35.3 ABG pO2 90.5 ABG O2 Sat Calc/Ronn 97.2 ABG O2 Content 14.2 L ABG Base Excess -1.9 ABG Hematocrit 30.4 L ABG Hemoglobin 10.5 L ABG Oxyhemoglobin 95.8 ABG Carboxyhemoglobin 1.0 ABG Methemoglobin 0.5 ABG Deoxyhemoglobin 2.7 Gavino Test POSITIVE A-a O2 Gradient 152.575 H Ionized Calcium 1.2 Mode of Support PSIMV Mechanical Rate 10 Inspired O2 40 Tidal Volume 450 Pressure Support 10 PEEP or CPAP 5.0 Sodium 147 H 148 Potassium 3.5 3.2 L Chloride 115 H 109 H Carbon Dioxide 23 Anion Gap 13 BUN 55 H Creatinine 1.67 H Estimated GFR (MDRD) 29 Glucose 182 H Calcium 8.0 Total Bilirubin 0.3 AST 35 H ALT 31 Alkaline Phosphatase 77 Serum Total Protein 4.9 L Albumin 2.8 L Globulin 2.1 L Albumin/Globulin Ratio 1.3 09/13/17 09/13/17 03:45 03:45 WBC 20.7 H RBC 3.26 L Hgb 10.6 L Hct 31.7 L MCV 97.4 MCH 32.5 H MCHC 33.3 RDW 13.5 Plt Count 223 MPV 8.5 Neutrophils % (Manual) 81 H Band Neuts % (Manual) 8 Lymphocytes % (Manual) 4 L Monocytes % (Manual) 7 Plt Morphology Comment Appears Adequate Specimen Type Puncture Site Bicarbonate Actual ABG pH ABG pCO2 ABG pO2 ABG O2 Sat Calc/Ronn ABG O2 Content ABG Base Excess ABG Hematocrit ABG Hemoglobin ABG Oxyhemoglobin ABG Carboxyhemoglobin ABG Methemoglobin ABG Deoxyhemoglobin Gavino Test A-a O2 Gradient Ionized Calcium Mode of Support Mechanical Rate Inspired O2 Tidal Volume Pressure Support PEEP or CPAP Sodium 149 H Potassium 3.0 L Chloride 115 H Carbon Dioxide 25 Anion Gap 12 BUN 46 H Creatinine 1.38 H Estimated GFR (MDRD) 36 Glucose 107 Calcium 8.6 Total Bilirubin 0.8 AST 51 H ALT 64 H Alkaline Phosphatase 79 Serum Total Protein 5.1 L Albumin 3.0 L Globulin 2.1 L Albumin/Globulin Ratio 1.4 - Radiology Interpretation Chest x-ray Status: image reviewed by me (small r pleural effusion) Progress Note: A/P - Problems (1) Acute respiratory failure with hypoxia Current Visit: Yes Status: Acute Code(s): J96.01 - ACUTE RESPIRATORY FAILURE WITH HYPOXIA (2) Acute encephalopathy Current Visit: Yes Status: Acute Code(s): G93.40 - ENCEPHALOPATHY, UNSPECIFIED (3) Ureter obstruction Current Visit: No Status: Acute Code(s): N13.5 - CROSSING VESSEL AND STRICTURE OF URETER W/O HYDRONEPHROSIS (4) Diarrhea Current Visit: Yes Status: Acute Code(s): R19.7 - DIARRHEA, UNSPECIFIED Qualifiers: Diarrhea type: unspecified type Qualified Code(s): R19.7 - Diarrhea, unspecified - Plan Plan: C.diff assay pending OK to transfer to medical need to adjust IVF for hypernatremia Continue IV ABX PT consult
--- NOTE | 2017-09-13 08:08 | RAD ---
SINGLE VIEW OF THE CHEST: Comparison: 09-12-17 History: Ventilated patient with respiratory failure. FINDINGS: Single view of the chest shows an enlarged but stable cardiomediastinal silhouette. Increased interst itial markings are present. There are veil-like opacities in the inferior aspect of both thoraces whi ch may represent small layering pleural effusions. The endotracheal tube and NG tube have been remove d. IMPRESSION: Small bilateral pleural effusions. POS: H
[2017-09-13] MEDS: Apixaban 5 MG TAB PO SCH ×2 (08:25→19:28)
[2017-09-13] MEDS: Senokot 8.6 MG TAB PO SCH (08:28)
[2017-09-13] MEDS: Hydrocortisone Sod Succ/PF 100 mg/2 ml Vial IVP SCH (08:32)
[2017-09-13] MEDS: Morphine ER 15 MG TAB PO SCH (09:06)
[2017-09-13] MEDS: Sodium Chloride 0.45% 1,000 ML IV SCH ×2 (10:25→19:29)
[2017-09-13] MEDS ORDERED: Amlodipine 10 MG TAB PO SCH (11:30)
[2017-09-13] MEDS: Cefepime 1 GM, Admixture Fee 1 EACH in Sterile Water 10 ML SLOW IVP SCH (14:19)
[2017-09-13] MEDS: HYDROcodone/Acetaminophen 5/325 mg Tablet PO PRN (14:27)
--- NOTE | 2017-09-13 15:02 | PDOC.PN ---
- Subjective Encounter Start Date: 09/13/17 Encounter Start Time: 10:15 PT anxious today, review of meds ahow chronic benzo and opioid use, none of which have been ordered and none givne in days. No F/C, no n/V/D/C, no CP or SOB. better after xanax earlier, MS holt restarted will give hydrocodone fro immediate acting opioid release - Objective MAR Reviewed: Yes Vital Signs & Weight: Vital Signs (12 hours) Temp Pulse BP 09/13/17 12:20 99.1 F 09/13/17 11:32 104 H 195/102 H 09/13/17 08:00 98.6 F Weight Admit Weight 139 lb Weight 139 lb 5.314 oz Most Recent Monitor Data Heart Rate from ECG 86 NIBP 157/127 NIBP BP-Mean 144 Respiration from ECG 23 SpO2 90 I&O: 09/12/17 09/13/17 09/14/17 06:59 06:59 06:59 Intake Total 2268 2072 1020 Output Total 3240 1965 725 Balance -972 107 295 Result Diagrams: 09/13/17 03:45 09/13/17 03:45 Radiology Reviewed by me: Yes EKG Reviewed by me: Yes Phys Exam - Physical Examination anxious, fidgety HEENT: PERRLA, moist MMs, sclera anicteric, oral pharynx no lesions Neck: no nodes, no JVD, supple, full ROM Respiratory: no wheezing, no rhonchi fine posterior crackles, no prolonged exp phase or wheezing Cardiovascular: RRR, no significant murmur, no rub Gastrointestinal: soft, non-tender, no distention, positive bowel sounds Musculoskeletal: no edema, pulses present Neurological: non-focal, normal sensation, moves all 4 limbs Lymphatic: no nodes Psychiatric: A&O x 3 Skin: no rash, normal turgor, cap refill <2 seconds Dx/Plan (1) Acute unilateral obstructive uropathy Code(s): N13.9 - OBSTRUCTIVE AND REFLUX UROPATHY, UNSPECIFIED Status: Acute Comment: PT had Right ureteral double J stent, Will [employer] monitor. urology following, good urine output now. (2) Hydronephrosis, right Code(s): N13.30 - UNSPECIFIED HYDRONEPHROSIS Status: Acute Comment: continued improvement of renal function, Cr down to 1.67 today , continue to Monitor. (3) Atrial fibrillation with RVR Code(s): I48.91 - UNSPECIFIED ATRIAL FIBRILLATION Status: Acute Comment: Stable echo, cardiology following. (4) CKD (chronic kidney disease) stage 3, GFR 30-59 ml/min Status: Chronic (5) COPD (chronic obstructive pulmonary disease) Status: Chronic Qualifiers: COPD type: chronic bronchitis Chronic bronchitis type: unspecified Qualified Code(s): J42 - Unspecified chronic bronchitis Comment: No evidence of COPD exacerbation. (6) HTN (hypertension) Code(s): I10 - ESSENTIAL (PRIMARY) HYPERTENSION Status: Chronic Qualifiers: Hypertension type: essential hypertension Qualified Code(s): I10 - Essential (primary) hypertension (7) Metabolic encephalopathy Code(s): G93.41 - METABOLIC ENCEPHALOPATHY Status: Resolved (8) Opioid dependence with withdrawal Code(s): F11.23 - OPIOID DEPENDENCE WITH WITHDRAWAL Status: Acute Comment: restart meds, prn hydrocodne as neeed for pain or withdrawl symptoms. daily xanax restarted - Plan * .
[2017-09-13] MEDS: traZODone HCl 50 MG TAB PO SCH (19:28)
[2017-09-14 04:39] LABS: Anion Gap 15 mmol/L (10-20); BUN (Urea Nitrogen) 29 mg/dL (9.8-20.1); Calc. Creatinine Clearance 39 mL/min (70-130); Calcium 8.6 mg/dL (7.8-10.44); Carbon Dioxide 25 mmol/L (23-31); Chloride 108 mmol/L (98-107); Estimated GFR-MDRD 50; Glucose 82 mg/dL (83-110); Potassium 3.3 mmol/L (3.5-5.1); Sodium 145 mmol/L (136-145)
[2017-09-14] MEDS: HYDROcodone/Acetaminophen 5/325 mg Tablet PO PRN (04:47)
[2017-09-14] MEDS: Levothyroxine Sodium 112 MCG TAB PER TUBE SCH (04:47)
[2017-09-14] MEDS: Apixaban 5 MG TAB PO SCH ×2 (08:01→20:17)
[2017-09-14] MEDS: Amlodipine 5 MG TAB PO SCH (08:01)
[2017-09-14] MEDS: Morphine ER 15 MG TAB PO SCH (08:02)
[2017-09-14] MEDS: ALPRAZolam 0.25 MG TAB PO SCH (08:02)
--- NOTE | 2017-09-14 10:03 | PDOC.PULPN ---
Progress Note: Subj/Obj - Subjective Date: 09/14/17 Time: 10:01 Narrative: Feels better. Wants to go home - ROS All systems: reviewed and no additional remarkable complaints except as stated - Objective Allergies/Adverse Reactions: Allergies Allergy/AdvReac Type Severity Reaction Status Date / Time No Known Allergies Allergy Verified 09/19/16 05:52 Medications: Current Medications Hydrocodone Bitart/Acetaminophen (Mclean 5/325) 1 tab PO Q4H PRN PRN Reason: Pain Last Admin: 09/14/17 04:47 Dose: 1 tab Albuterol/Ipratropium (Duoneb) 3 ml NEB Q4H PRN PRN Reason: SOB &/or Wheezing Last Admin: 09/14/17 07:53 Dose: 3 ml Alprazolam (Xanax) 0.25 mg PER TUBE QID PRN PRN Reason: Anxiety/Agitation Last Admin: 09/13/17 17:28 Dose: 0.25 mg Alprazolam (Xanax) 0.25 mg PO DAILY [facility] Last Admin: 09/14/17 08:02 Dose: 0.25 mg Amlodipine Besylate (Norvasc) 5 mg PO DAILY [facility] Last Admin: 09/14/17 08:01 Dose: 5 mg Apixaban (Eliquis) 2.5 mg PO BID [facility] Last Admin: 09/14/17 08:01 Dose: 2.5 mg Benazepril HCl (Lotensin) 10 mg PO DAILY [facility] Cefepime HCl 1 gm/Miscellaneous Medication 1 each/ Sterile Water 10 mls @ 120 mls/hr SLOW IVP 1400 [facility] Last Admin: 09/13/17 14:19 Dose: 10 mls Sodium Chloride (1/2 Normal Saline) 1,000 mls @ 75 mls/hr IV .[id number] [facility] Last Admin: 09/13/17 19:29 Dose: 1,000 mls Levothyroxine Sodium (Synthroid) 112 mcg PER TUBE 0600 [facility] Last Admin: 09/14/17 04:47 Dose: 112 mcg Metoprolol Succinate (Toprol Xl) 50 mg PO DAILY [facility] Last Admin: 09/14/17 08:02 Dose: 50 mg Morphine Sulfate (Ms Contin) 15 mg PO DAILY [facility] Last Admin: 09/14/17 08:02 Dose: 15 mg Pantoprazole Sodium (Protonix) 40 mg PO DAILY [facility] Last Admin: 09/14/17 08:01 Dose: 40 mg Trazodone HCl (Desyrel) 50 mg PO [facility] Last Admin: 09/13/17 19:28 Dose: 50 mg MAR Reviewed: Yes Vital Signs: Vital Signs Temp 98.6 F 09/14/17 07:41 Pulse 73 09/14/17 08:01 Resp 16 09/14/17 07:53 BP 161/87 H 09/14/17 08:01 Pulse Ox 94 L 09/14/17 07:53 Intake & Output 09/13/17 09/14/17 09/14/17 18:59 06:59 18:59 Intake Total 1140 1140 Output Total 1725 1400 Balance -585 -260 Weight 139 lb 5.314 oz Intake: Intake, IV Amount 600 900 Sodium Chloride 0.45% 1, 282 000 ml @ 75 mls/hr IV . [id number] [facility] Rx#:[id number] Sodium Chloride 0.9% 1, 268 000 ml @ 50 mls/hr IV . Q20H [facility] Rx#:[id number] Thiamine HCl 200 mg In 50 Sodium Chloride 0.9% 50 ml @ 100 mls/hr IVPB Q12HR [facility] Rx#:[id number] Oral 540 240 Output: Output, [place] 1725 1400 Other: Voiding Method Indwelling Catheter Indwelling Catheter # Bowel Movements 1 Progress Note: Exam - Physical Exam Constitutional: NAD HEENT: PERRLA, sclera anicteric Neck: no nodes, no JVD Cardiovascular: RRR Respiratory: rhonchi Gastrointestinal: soft, non-tender Musculoskeletal: edema present Neurological: non-focal, normal sensation, moves all 4 limbs Lymphatic: no nodes Psychiatric: normal affect, A&O x 3 Skin: no rash Progress Note: Data - Labs Result Diagrams: 09/13/17 03:45 09/14/17 03:36 Lab results: Laboratory Results 09/13/17 09/13/17 09/14/17 03:45 03:45 03:36 WBC 20.7 H RBC 3.26 L Hgb 10.6 L Hct 31.7 L MCV 97.4 MCH 32.5 H MCHC 33.3 RDW 13.5 Plt Count 223 MPV 8.5 Neutrophils % (Manual) 81 H Band Neuts % (Manual) 8 Lymphocytes % (Manual) 4 L Monocytes % (Manual) 7 Plt Morphology Comment Appears Adequate Sodium 149 H 145 Potassium 3.0 L 3.3 L Chloride 115 H 108 H Carbon Dioxide 25 25 Anion Gap 12 15 BUN 46 H 29 H Creatinine 1.38 H 1.04 Estimated GFR (MDRD) 36 50 Glucose 107 82 L Calcium 8.6 8.6 Total Bilirubin 0.8 AST 51 H ALT 64 H Alkaline Phosphatase 79 Serum Total Protein 5.1 L Albumin 3.0 L Globulin 2.1 L Albumin/Globulin Ratio 1.4 Progress Note: A/P - Problems (1) Acute respiratory failure with hypoxia Current Visit: Yes Status: Resolved Code(s): J96.01 - ACUTE RESPIRATORY FAILURE WITH HYPOXIA (2) Acute encephalopathy Current Visit: Yes Status: Resolved Code(s): G93.40 - ENCEPHALOPATHY, UNSPECIFIED (3) Ureter obstruction Current Visit: No Status: Acute Code(s): N13.5 - CROSSING VESSEL AND STRICTURE OF URETER W/O HYDRONEPHROSIS (4) Diarrhea Current Visit: Yes Status: Acute Code(s): R19.7 - DIARRHEA, UNSPECIFIED Qualifiers: Diarrhea type: unspecified type Qualified Code(s): R19.7 - Diarrhea, unspecified - Plan Plan: Seems to be doing reasonably well from a Pulmonary perspective. She ok for discharge. I think AMS from yesterday was due to narcotic w/d. She is on MS Contin at home. ABX per IM doesn't need f/u with us We will sign off
--- NOTE | 2017-09-14 10:58 | PQF ---
CLINICAL DOCUMENTATION IMPROVEMENT CLARIFICATION FORM: ICD-10 Updated PLEASE DO AN ADDENDUM TO THE PROGRESS NOTE WITH ANY DOCUMENTATION UPDATES OR ADDITIONS AND CARRY THROUGH TO DC SUMMARY. THANK YOU. DATE: 09/14/17 ATTN: Dr. Mata Please exercise your independent, professional judgment in responding to the clarification form. Clinical indicators are provided on the bottom of this form for your review Please check appropriate box(s) to clarify if the following diagnosis has been ruled in our ruled out: [employer] PN 09/10: ACUTE RESP. FAILURE 2/2 SEPTIC SHOCK FROM PYELONEPHRITIS. [ x ] Ruled in diagnosis [ ] Continue to treat [ x ] Resolved [ ] Ruled out diagnosis [ ] Cannot rule out diagnosis [ ] Other diagnosis [ ] Unable to determine In addition, please specify: Present on Admission (POA): [ x ] Yes [ ] No [ ] Unable to determine For continuity of documentation, please document condition throughout progress notes and discharge summary. Thank You. CLINICAL INDICATORS - SIGNS / SYMPTOMS / LABS H&P: WHEN PT ARRIVED IN THE ER, SHE HAD EVIDENCE OF FEVER 101 BP 148/74, HR 145, RR 18, SATURATION 91% ON 3 LITERS HOSPITALIST PN 09/10: (2) HYPOTENSION LIKELY FROM SEPTIC SHOCK PULM. PN 09/10: ACUTE RESP. FAILURE 2/2 SEPTIC SHOCK FROM PYELONEPHRITIS RISKS: H&P: ACUTE OBSTRUCTIVE UROPATHY; ACUTE PYELONEPHRITIS; MONA; A FIB WITH RVR. TREATMENT: OP NOTE 09/09: CYSTOSCOPY R URETERAL STENT. ORDER 09/09: MEROPENEM 1 GM. DC'D CPOE 09/11: CEFEPIME 1 GM IV 1400 Thank you, Anni (This form is maintained as a part of the permanent medical record) 2015 [employer]. All Rights Reserved Anni Topete RN, BSN [email or web address] Office: [phone] [facility]
[2017-09-14] MEDS: Sodium Chloride 0.45% 1,000 ML IV SCH ×2 (12:13→20:18)
[2017-09-14] MEDS: Cefepime 1 GM, Admixture Fee 1 EACH in Sterile Water 10 ML SLOW IVP SCH (15:00)
[2017-09-14] MEDS: ALPRAZolam 0.25 MG TAB PER TUBE PRN (15:08)
--- NOTE | 2017-09-14 15:23 | PDOC.PN ---
- Subjective Encounter Start Date: 09/14/17 Encounter Start Time: 08:40 Pt breathing okay, asking when she can go home. No recent visit from urology, suspect their role is done for now. Will tough base. no F/C, no N/V/d/C, eating okay. No CP or sOB, some sore throat. Less anxious 10 point ROs performed and neg for all systems except as above - Objective MAR Reviewed: Yes Vital Signs & Weight: Vital Signs (12 hours) Temp Pulse Pulse Pulse Pulse Pulse Resp 09/14/17 13:38 85 89 93 93 09/14/17 12:14 09/14/17 11:00 98.1 F 77 16 09/14/17 08:01 73 09/14/17 08:00 98.6 F 73 16 09/14/17 07:53 73 16 09/14/17 07:41 98.6 F 91 16 09/14/17 04:00 98.8 F 102 H 16 BP BP BP BP BP Pulse Ox Pulse Ox 09/14/17 13:38 159/90 H 121/77 142/84 H 95 09/14/17 12:14 154/87 H 09/14/17 11:00 138/86 96 09/14/17 08:01 161/87 H 09/14/17 08:00 94 L 09/14/17 07:53 94 L 09/14/17 07:41 161/87 H 94 L 09/14/17 04:00 151/80 H 93 L Pulse Ox Pulse Ox Pulse Ox 09/14/17 13:38 95 95 96 09/14/17 12:14 09/14/17 11:00 09/14/17 08:01 09/14/17 08:00 09/14/17 07:53 09/14/17 07:41 09/14/17 04:00 Weight Admit Weight 139 lb Weight 139 lb 5.314 oz Most Recent Monitor Data Heart Rate from ECG 86 NIBP 157/127 NIBP BP-Mean 144 Respiration from ECG 23 SpO2 90 I&O: 09/13/17 09/14/17 09/15/17 06:59 06:59 06:59 Intake Total 8809 0220 Output Total 0192 9255 Balance 107 -845 Result Diagrams: 09/13/17 03:45 09/14/17 03:36 Radiology Reviewed by me: Yes EKG Reviewed by me: Yes Phys Exam - Physical Examination Constitutional: NAD HEENT: PERRLA, moist MMs, sclera anicteric, oral pharynx no lesions Neck: no nodes, no JVD, supple, full ROM Respiratory: no wheezing, no rales, no rhonchi, clear to auscultation bilateral Cardiovascular: RRR, no significant murmur, no rub Gastrointestinal: soft, non-tender, no distention, positive bowel sounds Musculoskeletal: pulses present, edema present Neurological: non-focal, normal sensation, moves all 4 limbs Lymphatic: no nodes Psychiatric: normal affect, A&O x 3 Skin: no rash, normal turgor, cap refill <2 seconds Dx/Plan (1) Acute unilateral obstructive uropathy Code(s): N13.9 - OBSTRUCTIVE AND REFLUX UROPATHY, UNSPECIFIED Status: Acute Comment: PT had Right ureteral double J stent, [facility] monitor. urology following, good urine output now. (2) Hydronephrosis, right Code(s): N13.30 - UNSPECIFIED HYDRONEPHROSIS Status: Acute Comment: continued improvement of renal function, Cr down to 1.67 today , continue to Monitor. (3) Atrial fibrillation with RVR Code(s): I48.91 - UNSPECIFIED ATRIAL FIBRILLATION Status: Acute Comment: Stable echo, cardiology following. (4) CKD (chronic kidney disease) stage 3, GFR 30-59 ml/min Status: Chronic (5) COPD (chronic obstructive pulmonary disease) Status: Chronic Qualifiers: COPD type: chronic bronchitis Chronic bronchitis type: unspecified Qualified Code(s): J42 - Unspecified chronic bronchitis Comment: No evidence of COPD exacerbation. (6) HTN (hypertension) Code(s): I10 - ESSENTIAL (PRIMARY) HYPERTENSION Status: Chronic Qualifiers: Hypertension type: essential hypertension Qualified Code(s): I10 - Essential (primary) hypertension (7) Metabolic encephalopathy Code(s): G93.41 - METABOLIC ENCEPHALOPATHY Status: Resolved (8) Opioid dependence with withdrawal Code(s): F11.23 - OPIOID DEPENDENCE WITH WITHDRAWAL Status: Acute Comment: restart meds, prn hydrocodne as neeed for pain or withdrawl symptoms. daily xanax restarted (9) Septic shock Code(s): A41.9 - SEPSIS, UNSPECIFIED ORGANISM; R65.21 - SEVERE SEPSIS WITH SEPTIC SHOCK Status: Resolved Comment: present on admit, treated, resolved (10) Pyelonephritis Code(s): N12 - TUBULO-INTERSTITIAL NEPHRITIS, NOT SPCF ACUTE OR CHRONIC Status: Acute Comment: vy to infected urine and obstruction. CCM, improved. Stent in place - Plan cont current plan of care, continue antibiotics, PT/OT * . home when okay with pulmonary
[2017-09-14] MEDS ORDERED: Ondansetron HCl/PF 4 MG/2 ML Vial SLOW IVP PRN (17:49)
[2017-09-14] MEDS ORDERED: Ondansetron ODT 4 MG TAB PO PRN (17:49)
[2017-09-14] MEDS ORDERED: Ondansetron ODT 4 MG TAB PO SCH (18:00)
[2017-09-14] MEDS: traZODone HCl 50 MG TAB PO SCH (20:17)
[2017-09-15] MEDS: ALPRAZolam 0.25 MG TAB PER TUBE PRN ×2 (01:06→14:17)
[2017-09-15] MEDS: Levothyroxine Sodium 112 MCG TAB PER TUBE SCH (06:04)
[2017-09-15] MEDS: Apixaban 5 MG TAB PO SCH ×2 (09:00→19:46)
[2017-09-15] MEDS: ALPRAZolam 0.25 MG TAB PO SCH (09:01)
[2017-09-15] MEDS: Morphine ER 15 MG TAB PO SCH (09:02)
[2017-09-15] MEDS: Amlodipine 5 MG TAB PO SCH (09:07)
--- NOTE | 2017-09-15 09:20 | RAD ---
PORTABLE CHEST 1 VIEW: DATE: 09/15/17. TIME: 9:05 a.m. HISTORY: Shortness of breath. Followup pleural effusions. FINDINGS: Comparison is made with the exam of 09/13/17. The heart size is enlarged. Bilateral pleural effusions are again seen. No pneumothoraces are ident ified. POS: [facility]
[2017-09-15 11:51] VITALS: TEMP 98.3
--- NOTE | 2017-09-15 16:17 | DIS ---
PRIMARY CARE PHYSICIAN: Devi Cradenas M.D. DATE OF ADMISSION: 09/09/2017 DATE OF DISCHARGE: 09/15/2017 DISCHARGE DIAGNOSES: 1. Right ureteral obstruction with infected urine and complicated urinary tract infection/pyelonephr itis. 2. Severe sepsis with septic shock. 3. Acute hypoxic respiratory failure requiring intubation. 4. Physical deconditioning. 5. Recurrent nephrolithiasis. 6. Anxiety. 7. Hypothyroidism. 8. Hypertension. 9. Restless leg syndrome. 10. Paroxysmal atrial fibrillation, on anticoagulation. 11. Narcotic dependence. 12. Acute narcotic withdrawal symptoms. 13. Acute benzodiazepine withdrawal symptoms. CONSULTATIONS: 1. Pulmonary and Critical Care, Dr. Sammy Chandler. 2. Urology, Dr. Hue Forrester. 3. Cardiology, Dr. Micah Leo. 4. Neurology, Dr. Robert Shore. PROCEDURES: 1. 09/09/2017, Dr. Forrester, a cystoscopy and double-J stent placement into the right ureter. 2. 09/09/2017, Dr. Sammy Chandler, right IJ central venous catheter placement. 3. Echocardiogram on 09/09/2017 showed EF of 50-55%, probable diastolic dysfunction, moderately dila jad left atrium, mildly enlarged right atrium. 4. Moderate MR. 5. Trivial AI. 6. Mild TR. 7. Mild PI. HISTORY AND PHYSICAL: Ms. Thapa is an 87-year-old white female with history of recurrent nephrolithi asis and the above history, who presented to the emergency department on 09/09/2017 with abdominal pa in. She usually follows with Dr. Forbes as an outpatient and developed severe pain the day of admis merary at the [facility]. She called EMS for the pain and severe vomitin g. On arrival to the ER, she had a fever of 101 and was worked up and transferred to the floor. On arrival to the floor, a rapid response was called. The patient was found to be tachycardic at 120s t o 130s, and Urology was consulted. HOSPITAL COURSE: The patient was seen and examined by Dr. Lopez and admitted to the hospital. Urolo gy was consulted and came to evaluate the patient. She was taken to the cystoscopy lab and a double- J stent was placed for ureterolithiasis and hydroureter/hydronephrosis with suspected pyelo due to in fected urine. She responded well and had good urine placement. Unfortunately, due to her tenuous co urse, she was transferred to the ICU because she was febrile and extremely tachycardic. Allegedly at one point, her heart rate did get up in the 200s. After going to the cystoscopy suite, she was take n back to the floor where she became altered. A stroke alert was called. CT scan of the head was do ne which showed no evidence of stroke and she continued to have problem with respiratory insufficienc y. A code green was called. She was subsequently noted that she need to be intubated and was transf erred to the CCU for urgent intubation. On arrival to the ICU, on 09/09/2017, she was seen by Dr. Sammy Chandler who did intubate her. He lashanda hamida a right IJ central venous catheter to continue treatments, pressors, and sedation. By 09/10/2017, patient was stable. She had a T-max of 103.2 and a pulse of 101. ABG was largely unr emarkable. White blood cell count had spiked up to 29.6 and chest x-ray showed infiltrative changes in both bases likely from edema. She was able to be weaned off Levophed. She was continued on antib iotics. Urine culture was pending. On 09/11/2017, I did take over the case, a urine culture was reviewed. The patient remained intubate d with some pulmonary edema and her planned extubation was aborted until the following day. Mental s tatus seemed to be clearing up and the patient was upset that she would not be extubated yet. 09/12/2017, the patient was extubated. She has no complaints other than a sore throat. She is feeli ng much better and metabolic encephalopathy has resolved. Blood pressure remained stable. Heart rem ained stable. Acute kidney injury on top of chronic kidney disease continue to improve. She was con tinued on broad spectrum antibiotics. On 09/13/2017, the patient was extremely anxious. Review of the medications showed chronic benzo and opioid use, none of which have been continued and she was felt to be in acute withdrawal. She will be started on MS Contin, given some Xanax and given some hydrocodone for immediate narcotic withdrawa l treatment. She seemed to be markedly improved later in the day. The creatinine continued to impro ve down to 1.67, echo remained stable, and she remained on antibiotics. By 09/14/2017, she was trans ferred to the floor and was doing well. She was getting up with physical therapy. Pompa catheter re mained in place. Her septic shock had resolved and she was doing markedly better. Arrangements were made to go to rehabilitation at [facility] on discharge. She was continued on IV an tibiotics and remained stable. On 09/15/2017, white blood cell count was normal, creatinine was normal, she was getting up with phys ical therapy and walking 15-20 feet, she was tolerating p.o. diet. Her Pompa catheter was removed an d she was able to urinate, white blood cell count remained normal. Her urine cultures were finalized with two different strains of E. coli, both tanner-susceptible. She was transitioned to oral levofloxa sin for IV equivalents to treat her pyelonephritis and was discharged to [facility] for rehabil itation in stable condition. PHYSICAL EXAMINATION: The patient was seen and examined on the day of discharge. Discharge plan and disposition were discussed with the patient [id number] at the bedside. DISCHARGE MEDICATIONS: 1. Xanax 0.25 mg p.o. daily p.r.n. anxiety. 2. Levothyroxine 112 mcg p.o. daily. 3. Trazodone 50 mg p.o. at bedtime p.r.n. insomnia. 4. Amlodipine 5 mg p.o. daily. 5. Apixaban 2.5 mg p.o. b.i.d. 6. Benazepril 10 mg p.o. daily. 7. Calcium carbonate plus D one tablet p.o. daily. 8. Cholecalciferol 1000 units p.o. daily. 9. Clonidine 1 mg p.o. q.4 hours p.r.n. elevated pressure. 10 Famotidine 20 mg p.o. b.i.d. 11. Iron sulfate 325 mg daily. 12. DuoNeb 3 mL q.4 hours p.r.n. shortness of breath or wheezing. 13. Levofloxacin 500 mg p.o. daily to start tomorrow for 7 more days. 14. Loratadine 10 mg p.o. daily. 15. Metoprolol succinate 50 mg p.o. daily. 16. MS Contin 15 mg p.o. daily. 17. Theragran multivitamin 1 tablet p.o. daily. 18. Ropinirole 0.5 mg p.o. q.p.m. 19. Sennosides 8.6 mg 2 tablets p.o. b.i.d. FOLLOWUP APPOINTMENTS: Primary care physician Dr. Devi Cardenas within a week. No follow up for Pulmono logy needed. DISCHARGE ACTIVITY: Per cardiopulmonary limits. DISCHARGE CONDITION: Stable. DISCHARGE DISPOSITION: Will be discharged to [facility] for rehabilitation. DISCHARGE DIET: Heart healthy recommended.
[2017-09-15] MEDS: traZODone HCl 50 MG TAB PO SCH (19:46)
[2017-09-15 20:49] VITALS: BP 109/73
--- NOTE | 2017-09-16 14:21 | EKG ---
Test Reason : Blood Pressure : / mmHG Vent. Rate : 084 BPM Atrial Rate : 084 BPM P-R Int : 220 ms QRS Dur : 086 ms QT Int : 298 ms P-R-T Axes : 070 -25 006 degrees QTc Int : 352 ms Sinus rhythm with 1st degree A-V block with Blocked Premature atrial complexes Anterior infarct , age undetermined Abnormal ECG Confirmed by NERI LANDRY MD ([id number]), web editor KARSON MUKHERJEE ([id number]) on 09/16/2017 2:21:20 PM Referred By: Confirmed By:NERI LANDRY MD
--- NOTE | 2017-09-17 16:35 | EKG ---
Test Reason : Blood Pressure : / mmHG Vent. Rate : 157 BPM Atrial Rate : 159 BPM P-R Int : 000 ms QRS Dur : 082 ms QT Int : 244 ms P-R-T Axes : 000 023 -20 degrees QTc Int : 394 ms Sinus tachycardia Nonspecific ST and T wave abnormality Abnormal ECG When compared with ECG of 18-MAR-2017 18:17, [place] interval has decreased Vent. rate has increased BY [address] now depressed in Anterolateral leads Nonspecific T wave abnormality, improved in Anterior leads T wave inversion now evident in Lateral leads Confirmed by Quincy ANDRADE ([id number]) on 09/17/2017 4:35:32 PM Referred By: Confirmed By:Quincy ANDRADE
--- NOTE | 2017-09-17 16:37 | EKG ---
Test Reason : STAT Blood Pressure : / mmHG Vent. Rate : 090 BPM Atrial Rate : 090 BPM P-R Int : 216 ms QRS Dur : 084 ms QT Int : 380 ms P-R-T Axes : 079 002 025 degrees QTc Int : 464 ms Sinus rhythm with 1st degree A-V block with Premature atrial complexes Low voltage QRS Cannot rule out Anterior infarct , age undetermined Abnormal ECG When compared with ECG of 09-SEP-2017 08:02, (Unconfirmed) Significant changes have occurred Confirmed by Quincy ANDRADE ([id number]) on 09/17/2017 4:36:44 PM Referred By: Belinda ANDRADE Confirmed By:Quincy ANDRADE
== END 2017-09-15 21:06 | DRG 871 ==
LOC: ERS 23:14 → SURG A 09-09 02:33 → IMCU/EMU 09-09 09:20 → CCU 09-09 13:31 → T4-A 09-13 15:21
PROVIDERS: ADMIT Hospitalist; ATTEND Hospitalist
PROC: 0T768DZ Dilation of Right Ureter with Intraluminal Device, Via Natural or Artificial Opening Endoscopic (ICD-10-PCS; principal; 2017-09-09)
PROC: 5A1945Z Respiratory Ventilation, 24-96 Consecutive Hours (ICD-10-PCS; 2017-09-09)
PROC: 02HV33Z Insertion of Infusion Device into Superior Vena Cava, Percutaneous Approach (ICD-10-PCS; 2017-09-09)
PROC: BT1DYZZ Fluoroscopy of Right Kidney, Ureter and Bladder using Other Contrast (ICD-10-PCS; 2017-09-09)
PROC: 0BH17EZ Insertion of Endotracheal Airway into Trachea, Via Natural or Artificial Opening (ICD-10-PCS; 2017-09-09)
DX: A41.9 Sepsis, unspecified organism (principal); R65.21 Severe sepsis with septic shock; J96.00 Acute respiratory failure, unspecified whether with hypoxia or hypercapnia; G93.40 Encephalopathy, unspecified; N17.9 Acute kidney failure, unspecified; E87.0 Hyperosmolality and hypernatremia; I48.91 Unspecified atrial fibrillation; E86.0 Dehydration; I24.8 Other forms of acute ischemic heart disease; N13.6 Pyonephrosis; F15.93 Other stimulant use, unspecified with withdrawal; E03.9 Hypothyroidism, unspecified; F41.9 Anxiety disorder, unspecified; A49.8 Other bacterial infections of unspecified site; I12.9 Hypertensive chronic kidney disease with stage 1 through stage 4 chronic kidney disease, or unspecified chronic kidney disease; N18.3 Chronic kidney disease, stage 3 (moderate)
CPT/HCPCS: 36415; 36416; 70450; 71045; 74176; 74420; 80048; 80053; 81003; 81015; 82805; 83690; 84484; 85025; 87040; 87077; 87086; 87186; 87324; 87449; 87633; 93005; 93010; 93306; 94002; 94003; 94640; 96365; 96375; 96376; A4216; C1758; C1769; C9113; G8978-GP-CK; G8979-GP-CI; J0692; J0696; J1100; J1720; J1940; J1956; J2001; J2060; J2185; J2270; J2405; J2704; J3010; J3411; J7050; J7620; Q0162; Q9961

== ENCOUNTER 2017-09-29 18:47 | Observation (INO) | payer MEDICARE ==
[2017-09-29 19:46] LABS: #Eosinphils 0.3 thou/uL (0.0-0.7); #Monocytes 0.7 thou/uL (0.11-0.59); #Neutrophils 3.6 thou/uL (1.40-6.50); %Basophils 0.6 % (0.0-1.0); %Eosinophils 5.1 % (0.0-10.0); %Lymphocytes 17.7 % (21.0-51.0); %Monocytes 12.1 % (0.0-10.0); %Neutrophils 64.4 % (42.0-75.0); Hemoglobin 11.6 g/dL (12.0-16.0); Mean Corpuscular HGB CONC 32.4 g/dL (32.0-36.0); Mean Corpuscular Hemoglobin 32.1 pg (27.0-31.0); Platelet Count 340 thou/uL (130-400); Red Blood Cell (RBC) Count 3.62 mill/uL (4.20-5.40); White Blood Cell (WBC) Count 5.6 thou/uL (4.8-10.8)
[2017-09-29 19:55] LABS: ALT (SGPT) 11 U/L (8-55); AST (SGOT) 22 U/L (5-34); Albumin 4.2 g/dL (3.4-4.8); Alkaline Phosphatase 95 U/L (40-150); Anion Gap 15 mmol/L (10-20); BUN (Urea Nitrogen) 25 mg/dL (9.8-20.1); Bilirubin, Total 0.3 mg/dL (0.2-1.2); Calc. Creatinine Clearance 0 mL/min (70-130); Calcium 9.8 mg/dL (7.8-10.44); Carbon Dioxide 27 mmol/L (23-31); Chloride 94 mmol/L (98-107); Estimated GFR-MDRD 27; Globulin 3.1 g/dL (2.4-3.5); Glucose 121 mg/dL (83-110); Potassium 4.6 mmol/L (3.5-5.1); Protein, Total 7.3 g/dL (6.0-8.3); Sodium 131 mmol/L (136-145)
[2017-09-29 20:00] LABS: Bilirubin Negative (Negative); Blood, Urine Moderate (Negative); Clarity CLOUDY (Clear); Glucose, Urine (Dipstick) Negative (Negative); Leukocyte Large (Negative); Nitrite Negative (Negative); Protein, Urine (Dipstick) Trace mg/dL (Neg-Trace); Specific Gravity, Urine 1.008 (1.002-1.036); Urobilinogen 0.2 mg/dL (0.2-1.0); pH, Urine 6.5 (5.0-9.0)
[2017-09-29 20:02] LABS: Bacteria/HPF None Seen HPF (None Seen); Hyaline Casts/LPF 0-3 HYALINE CAST LPF (0-3 Hyaline); Pathc Cast-AUWi Flag 0.94 (0-2.49); RBC/HPF 0-3 HPF (0-3); Squamous Epithelial None Seen HPF (0-3)
[2017-09-29 20:03] LABS: Yeast-AUWi Flag 53.5 (0-25.0)
[2017-09-29 20:14] LABS: CKMB 1.3 ng/mL (0-6.6); Troponin I 0.015 ng/mL (< 0.028)
[2017-09-29 20:15] LABS: Yeast-All Forms 1+ HPF (None Seen)
--- NOTE | 2017-09-29 20:26 | RAD ---
FRONTAL VIEW CHEST 09/29/17 COMPARISON: 09/27/17 INDICATION: Blood in urine, PUE. FINDINGS: Redemonstration of heterogeneous patchy density at the right lower lung. Interstitial prominence is present bilaterally. Cardiomediastinal silhouette is grossly stable. IMPRESSION: Redemonstration of complex appearing density at the right lower lung zone favoring pneumonia. Continu ed followup is warranted. POS: RAMIREZ
[2017-09-29] MEDS ORDERED: Piperacillin/Tazobactam 3.375 GM in Sodium Chloride 0.9% 100 ML IVPB SCH (21:15)
[2017-09-30] MEDS ORDERED: Ondansetron HCl/PF 4 MG/2 ML Vial IVP PRN (00:57)
[2017-09-30] MEDS ORDERED: Acetaminophen 325 MG TAB PO PRN ×2 (00:57→03:27)
[2017-09-30] MEDS ORDERED: Ondansetron ODT 4 MG TAB SL PRN (00:57)
[2017-09-30 02:20] VITALS: BMI 21.4
[2017-09-30] MEDS ORDERED: Ondansetron ODT 4 MG TAB PO PRN (03:27)
[2017-09-30 05:17] LABS: #Eosinphils 0.2 thou/uL (0.0-0.7); #Lymphocytes 0.8 thou/uL (1.20-3.40); #Monocytes 0.5 thou/uL (0.11-0.59); #Neutrophils 3.6 thou/uL (1.40-6.50); %Basophils 0.9 % (0.0-1.0); %Eosinophils 4.1 % (0.0-10.0); %Lymphocytes 14.7 % (21.0-51.0); %Monocytes 10.2 % (0.0-10.0); Hemoglobin 9.7 g/dL (12.0-16.0); Mean Corpuscular HGB CONC 33.2 g/dL (32.0-36.0); Mean Corpuscular Hemoglobin 32.6 pg (27.0-31.0); Mean Corpuscular Volume 98.2 fl (81.0-99.0); Mean Platelet Volume 7.7 fL (7.4-10.4); Platelet Count 312 thou/uL (130-400); RBC Distribution Width 13.1 % (11.5-14.5); Red Blood Cell (RBC) Count 2.98 mill/uL (4.20-5.40); White Blood Cell (WBC) Count 5.2 thou/uL (4.8-10.8)
[2017-09-30 05:34] LABS: Anion Gap 13 mmol/L (10-20); BUN (Urea Nitrogen) 22 mg/dL (9.8-20.1); Calc. Creatinine Clearance 26 mL/min (70-130); Carbon Dioxide 25 mmol/L (23-31); Chloride 100 mmol/L (98-107); Estimated GFR-MDRD 35; Glucose 90 mg/dL (83-110); Potassium 4.6 mmol/L (3.5-5.1); Sodium 133 mmol/L (136-145)
--- NOTE | 2017-09-30 08:10 | HP ---
DATE OF ADMISSION: 09/30/2017 TIME OF SERVICE: 0540 PRIMARY CARE PHYSICIAN: Devi Cardenas M.D. CHIEF COMPLAINT: Shortness of breath. HISTORY OF PRESENT ILLNESS: Ms. Thapa is an 87-year-old female well known to me from previous hospit alization. I saw her last several days of her hospital stay and as we discharged her on 09/15/2017. At that time, she was discharged to [facility] for rehabilitation. During that stay, she was admitted for ureteral stone with obstruction and pyelonephritis. She was septic and developed respir atory failure and had to be intubated. She has subsequently had a double-J stent placed into ureter and was treated for urinary tract infection and had been doing well. She relates a history of increasing shortness of breath for 2-3 days. She was transferred to the ER for evaluation. She has been having shortness of breath and 2 days ago on 09/27/2017, she had a chest x-ray done whic h showed bibasilar opacities, right more than left, consistent with fluid and/or developing pneumonia . She was started on oxygen there at [facility]. She had a urine culture that was positive for nonhe molytic strep at the same time. Here, she was found to be hypoxic with room air oxygen saturation especially in the 80s. Her labs we re fairly normal and we were subsequently called for admission for this hypoxia. Chest x-ray here showed slight increase in her basilar opacities. Since admission, she was transferred to the floor. She has been weaned off of oxygen, satting 94% on room air. She is afebrile and vital signs have been otherwise stable. PAST MEDICAL HISTORY: 1. Deep venous thrombosis. 2. Chronic obstructive pulmonary disease. 3. Nephrolithiasis. 4. Hypertension. 5. Anemia of renal disease. 6. Gastroesophageal reflux disease. 7. Osteoporosis. 8. Left lower extremity deep venous thrombosis. 9. Hypothyroidism. 10. Chronic low back pain. PAST SURGICAL HISTORY: Includes, 1. Cholecystectomy in 03/2017. 2. Appendectomy remotely. 3. Total hysterectomy remotely. 4. Right GRETA. 5. Left GRETA. 6. Tonsillectomy. HOME MEDICATIONS: 1. Xanax 0.25 mg daily as needed for anxiety. 2. Levothyroxine 112 mcg daily. 3. Trazodone 50 mg p.o. at bedtime p.r.n. insomnia. 4. Amlodipine 5 mg daily. 5. Apixaban 2.5 mg p.o. b.i.d. 6. Benazepril 10 mg daily. 7. Calcium carbonate plus D one tablet daily. 8. Cholecalciferol 1000 units p.o. daily. 9. Clonidine 0.1 mg p.o. q.4 hours p.r.n. elevated blood pressure. 10. Famotidine 20 mg p.o. b.i.d. 11. Iron sulfate 325 mg daily. 12. DuoNeb q.4 hours p.r.n. shortness of breath or wheezing. 13. Levofloxacin 500 mg daily from 09/15/2017 to 09/22/2017. 14. Loratadine 10 mg daily. 15. Metoprolol succinate 50 mg p.o. daily. 16. MS Contin 15 mg p.o. daily. 17. Theragran Multivitamin daily. 18. Ropinirole 0.5 mg p.o. q.p.m. 19. Sennosides 8.6 mg 2 tablets b.i.d. ALLERGIES: NKDA. FAMILY HISTORY: Negative for clotting or bleeding disorder, no immune dysfunction. SOCIAL HISTORY: Significant for tobacco. She smoked for many years, but quit more than 10 years ago . She is currently in [facility] for rehabilitation. REVIEW OF SYSTEMS: A 10-point review of systems was performed, negative for all systems except state d as per HPI. We discussed code status. She has an out of hospital DNR. She told me that she does want to be a FULL CODE at this point. If her breathing worsens, she does want to be intubated, if he r heart stops, she wants CPR and to try to bring her back. She also did consent to electrical shocks if needed for arrhythmias. PHYSICAL EXAMINATION: VITAL SIGNS: Temperature is 98.3, pulse 94, blood pressure 154/75, respiratory rate 18, satting 94% on room air. GENERAL: She is awake. She is alert. She is oriented x3. She is well-developed, well-nourished, e lderly white female. She is in no distress. HEENT: Normocephalic, atraumatic. Pupils equal, round, react to light bilaterally. Mucous membrane s are moist. She has no visible, no thrush. NECK: Supple. She has no lymphadenopathy, JVD or thyromegaly. LUNGS: Clear. She has good air movement. Symmetrical chest excursion. She has some slight dullnes s or decreased sounds in the bilateral bases, but I do not hear any crackles. There is no wheezing, no prolonged expiratory phase. CARDIOVASCULAR: She is slightly tachycardic, irregular. She has normal S1 and S2. She has a holosy stolic murmur 3/6 best heard over the apex. ABDOMEN: Soft, it nontender and nondistended. She has no mass or organomegaly. EXTREMITIES: No cyanosis or clubbing with trace pedal edema. SKIN: Warm, moist, and well perfused. She has no rashes, no lesions. MUSCULOSKELETAL: Exam is normal to inspection. She has no palpable joint effusions and no inflamed joints. SKIN: Warm, moist, and well perfused. She has no other rashes or lesions. NEUROLOGIC: Cranial nerves II-XII are grossly intact. She has normal speech pattern. She has a 4-5 /5 strength in all four extremities. She has no focal deficits. LABORATORY DATA: Sodium 131, potassium 4.6, chloride 94, bicarbonate 27, BUN 25 and creatinine of 1. 76. Repeat since admission is 1.44, and she was 1.04 just prior to discharge during her last stay. Glucose 121, calcium 9.8. Liver function studies are within normal limits. CBC showed a white count of 5.6, hemoglobin 11.6, h ematocrit 35.8 and platelet count was 340,000. Her urinalysis shows moderate blood, large leukocyte esterase, greater than 50 white cells, no bacteria, negative nitrite and 1+ yeast. CK-MB was normal at 1.3. Troponin I was normal at 0.015 and BNP was elevated at 124.8. Chest x-ray shows complex appearing density in the right lower lung zone favoring pneumonia. ASSESSMENT AND PLAN: 1. Possible healthcare associated pneumonia. 2. Acute hypoxemic respiratory failure. 3. History of deep venous thrombosis. 4. Chronic obstructive pulmonary disease without acute exacerbation. 5. Nephrolithiasis with ureteral obstruction, status post stent placement. 6. Hypertension. 7. Anemia of renal disease. 8. Gastroesophageal reflux disease. 9. Osteoporosis. 10. Hypothyroidism. 11. Low back pain. Patient is doing markedly better now. Her creatinine looks better. I would hold her benazepril for the time being and would continue home medications otherwise. She is afebrile with a normal white bl ood cell count. I am not convinced she has pneumonia. She is on levofloxacin, which will continue a nd will make further recommendation. We will give more information back. The patient was placed in observation. We will continue Pepcid and Lovenox for DVT prophylaxis. Continue her apixaban and Pre vacid for prophylaxis.
[2017-09-30] MEDS ORDERED: Cefepime 1 GM in Sodium Chloride 0.9% 100 ML IVPB SCH (09:00)
[2017-09-30] MEDS: Famotidine 20 MG TAB PO SCH (09:18)
[2017-09-30] MEDS: HYDROcodone/Acetaminophen 5/325 mg Tablet PO PRN ×2 (09:21→18:34)
[2017-09-30] MEDS: Cefepime 1 GM, Admixture Fee 1 EACH in Sterile Water 10 ML SLOW IVP SCH (20:17)
[2017-10-01] MEDS: HYDROcodone/Acetaminophen 5/325 mg Tablet PO PRN ×3 (04:51→13:10)
[2017-10-01 05:30] LABS: #Eosinphils 0.2 thou/uL (0.0-0.7); #Lymphocytes 0.7 thou/uL (1.20-3.40); #Monocytes 0.6 thou/uL (0.11-0.59); #Neutrophils 3.9 thou/uL (1.40-6.50); %Basophils 0.3 % (0.0-1.0); %Eosinophils 3.1 % (0.0-10.0); %Lymphocytes 12.1 % (21.0-51.0); %Monocytes 11.8 % (0.0-10.0); %Neutrophils 72.7 % (42.0-75.0); Hemoglobin 9.7 g/dL (12.0-16.0); Mean Corpuscular HGB CONC 33.1 g/dL (32.0-36.0); Mean Corpuscular Hemoglobin 32.7 pg (27.0-31.0); Mean Corpuscular Volume 98.7 fl (81.0-99.0); Mean Platelet Volume 7.9 fL (7.4-10.4); Platelet Count 294 thou/uL (130-400); RBC Distribution Width 13.1 % (11.5-14.5); Red Blood Cell (RBC) Count 2.97 mill/uL (4.20-5.40); White Blood Cell (WBC) Count 5.3 thou/uL (4.8-10.8)
[2017-10-01 06:09] LABS: Anion Gap 13 mmol/L (10-20); BUN (Urea Nitrogen) 14 mg/dL (9.8-20.1); Calc. Creatinine Clearance 27 mL/min (70-130); Calcium 8.9 mg/dL (7.8-10.44); Carbon Dioxide 25 mmol/L (23-31); Chloride 104 mmol/L (98-107); Estimated GFR-MDRD 36; Glucose 84 mg/dL (83-110); Potassium 4.7 mmol/L (3.5-5.1); Sodium 137 mmol/L (136-145)
[2017-10-01] MEDS: Famotidine 20 MG TAB PO SCH (08:31)
[2017-10-01] MEDS: Cefepime 1 GM, Admixture Fee 1 EACH in Sterile Water 10 ML SLOW IVP SCH (08:31)
[2017-10-01] MEDS ORDERED: ALPRAZolam 0.25 MG TAB PO SCH (09:00)
--- NOTE | 2017-10-01 11:49 | DIS ---
DATE OF ADMISSION: 09/30/2017 DATE OF DISCHARGE: 10/01/2017 PRIMARY CARE PHYSICIAN: Devi Cardenas M.D. DISCHARGE DIAGNOSIS: Acute hypoxemic respiratory failure. CONDITION OF PATIENT ON THE DAY OF DISCHARGE: Stable. I assessed Ms. Thapa on the day of discharge. She denies any chest pain. She denies any shortness of breath. PHYSICAL EXAMINATION: VITAL SIGNS: Stable and she is saturating well on room air. CARDIOVASCULAR: S1 and S2 are heard, regular. LUNGS: Clear to auscultation bilaterally. DISCHARGE MEDICATIONS: In addition to her home medications as dictated on the history and physical note from 09/30/2017, she is being discharged on levofloxacin 500 mg daily for 1 week. Her benazepril is temporarily on hold while awaiting her renal function to improve. HOSPITAL COURSE: Ms. Thapa is a pleasant 87-year-old lady who was admitted to [facility] on observation status on 09/30/2017 for hypoxia. She was started on levofloxacin by the admitting physician. Hypoxia resolved. There was no clear etiology for hypoxia. She clinically improved and is being discharged home in a stable condition. [facility], and is being discharged back to [facility]. Many thanks for allowing me to participate in your patient's care. Please feel free to contact me with any questions or concerns. She will need her creatinine and electrolytes checked in approximately a week's time. On the day of discharge, she has normal electrolytes, creatinine of 1.38, white count 5300, hemoglobin 9.7 and platelet count 294,000. Her urinalysis was suggestive of urinary tract infection. At the time of this dictation, final culture is pending. She is advised to follow up with her primary care physician for the final report of the urine culture. In the past, her urine cultures grew Escherichia coli, which was pansensitive as well as non- hemolytic Streptococcus and yeast. DISCHARGE DESTINATION: [facility]. [facility]
[2017-10-01 12:16] VITALS: BP 167/83; TEMP 98.6
[2017-10-01] MEDS ORDERED: Acetaminophen 325 MG TAB PO PRN (13:01)
[2017-10-01] MEDS ORDERED: cloNIDine 0.1 MG TAB PO PRN (13:01)
[2017-10-01] MEDS ORDERED: Morphine ER 15 MG TAB PO PRN (13:01)
[2017-10-01] MEDS ORDERED: Amlodipine 5 MG TAB PO SCH (13:15)
[2017-10-01] MEDS ORDERED: traZODone HCl 50 MG TAB PO SCH (21:00)
[2017-10-01] MEDS ORDERED: rOPINIRole HCl 0.25 MG TAB PO SCH (21:00)
[2017-10-01] MEDS ORDERED: TROSPIUM 20 MG TABLET PO SCH (21:00)
[2017-10-01] MEDS ORDERED: Non-Formulary Item 1 EACH (Trazodone Hcl [Trazodone Hcl] 50 MG) PO SCH (21:00)
[2017-10-01] MEDS ORDERED: Apixaban 5 MG TAB PO SCH (21:00)
[2017-10-01] MEDS ORDERED: Famotidine 20 MG TAB PO SCH (21:00)
[2017-10-01] MEDS ORDERED: Senokot 8.6 MG TAB PO SCH (21:00)
[2017-10-02] MEDS ORDERED: Amlodipine 10 MG TAB PO SCH (09:00)
[2017-10-02] MEDS ORDERED: Ferrous Sulfate 325 MG TAB PO SCH (09:00)
[2017-10-02] MEDS ORDERED: Multivit, Therapeutic 1 TAB PO SCH (09:00)
[2017-10-02] MEDS ORDERED: Levothyroxine Sodium 112 MCG TAB PO SCH ×2 (09:00)
[2017-10-02] MEDS ORDERED: Amlodipine 5 MG TAB PO SCH (09:00)
[2017-10-02] MEDS ORDERED: Loratadine 10 MG TAB PO SCH (09:00)
[2017-10-02] MEDS ORDERED: Calcium Carbonate + Vit D 1 TAB PO SCH (09:00)
[2017-10-02] MEDS ORDERED: Levothyroxine Sodium 25 MCG TAB PO SCH (09:00)
== END 2017-10-01 16:34 ==
LOC: ERS 18:47 → T4-A 21:30
PROVIDERS: ADMIT Internal Medicine Infectious Disease; ATTEND Internal Medicine Infectious Disease
DX: J96.01 Acute respiratory failure with hypoxia (principal); I10 Essential (primary) hypertension; K21.9 Gastro-esophageal reflux disease without esophagitis; M81.0 Age-related osteoporosis without current pathological fracture; E03.9 Hypothyroidism, unspecified; M54.5 Low back pain; G89.29 Other chronic pain; J44.9 Chronic obstructive pulmonary disease, unspecified; D64.9 Anemia, unspecified; F41.9 Anxiety disorder, unspecified; F32.9 Major depressive disorder, single episode, unspecified; Z79.01 Long term (current) use of anticoagulants; Z79.891 Long term (current) use of opiate analgesic; Z79.899 Other long term (current) drug therapy; Z96.643 Presence of artificial hip joint, bilateral; Z90.49 Acquired absence of other specified parts of digestive tract; Z90.710 Acquired absence of both cervix and uterus; Z90.89 Acquired absence of other organs; Z98.890 Other specified postprocedural states; Z87.891 Personal history of nicotine dependence; Z86.718 Personal history of other venous thrombosis and embolism; Z87.442 Personal history of urinary calculi
CPT/HCPCS: 71045; 80048 ×2; 80053; 82553; 83735 ×2; 83880; 84484; 85025 ×3; 87040; 87086; 93005; 96365; 96366 ×3; 96367; 96375; 96376 ×2; 97139; 99285; G0378; G8978; G8979; 36415; 81003; 81015; A4216; J0692; J1956; J2543; J3370; J7050; Q0162

== ENCOUNTER 2017-10-13 17:00 | Inpatient (IN) | payer MEDICARE ==
[2017-10-13 17:35] LABS: #Basophils 0.1 thou/uL (0.0-0.2); #Lymphocytes 0.9 thou/uL (1.20-3.40); #Monocytes 0.5 thou/uL (0.11-0.59); #Neutrophils 4.4 thou/uL (1.40-6.50); %Basophils 0.9 % (0.0-1.0); %Eosinophils 0.5 % (0.0-10.0); %Lymphocytes 16.1 % (21.0-51.0); %Monocytes 7.9 % (0.0-10.0); %Neutrophils 74.6 % (42.0-75.0); Hemoglobin 11.9 g/dL (12.0-16.0); Mean Corpuscular HGB CONC 32.4 g/dL (32.0-36.0); Mean Corpuscular Volume 95.6 fl (81.0-99.0); Mean Platelet Volume 6.6 fL (7.4-10.4); Platelet Count 369 thou/uL (130-400); RBC Distribution Width 13.1 % (11.5-14.5); Red Blood Cell (RBC) Count 3.83 mill/uL (4.20-5.40); White Blood Cell (WBC) Count 5.9 thou/uL (4.8-10.8)
[2017-10-13 17:57] LABS: ALT (SGPT) 15 U/L (8-55); AST (SGOT) 30 U/L (5-34); Albumin 4.1 g/dL (3.4-4.8); Alkaline Phosphatase 91 U/L (40-150); Anion Gap 18 mmol/L (10-20); BUN (Urea Nitrogen) 25 mg/dL (9.8-20.1); Bilirubin, Total 0.4 mg/dL (0.2-1.2); Calc. Creatinine Clearance 0 mL/min (70-130); Calcium 9.4 mg/dL (7.8-10.44); Carbon Dioxide 22 mmol/L (23-31); Chloride 94 mmol/L (98-107); Estimated GFR-MDRD 36; Globulin 2.6 g/dL (2.4-3.5); Glucose 115 mg/dL (83-110); Potassium 4.6 mmol/L (3.5-5.1); Protein, Total 6.7 g/dL (6.0-8.3); Sodium 129 mmol/L (136-145)
[2017-10-13 19:40] LABS: Bilirubin Negative (Negative); Blood, Urine Small (Negative); Clarity CLOUDY (Clear); Glucose, Urine (Dipstick) Negative (Negative); Leukocyte Large (Negative); Nitrite Negative (Negative); Protein, Urine (Dipstick) Negative (Neg-Trace); Specific Gravity, Urine 1.015 (1.002-1.036); Urobilinogen 0.2 mg/dL (0.2-1.0); pH, Urine 6.5 (5.0-9.0)
[2017-10-13 19:43] LABS: Bacteria/HPF Rare-Few HPF (None Seen); Hyaline Casts/LPF 0-3 HYALINE CAST LPF (0-3 Hyaline); Squamous Epithelial None Seen HPF (0-3)
[2017-10-13 19:44] LABS: Yeast-AUWi Flag 92.5 (0-25.0)
[2017-10-13 19:51] LABS: Yeast-All Forms None Seen HPF (None Seen)
--- NOTE | 2017-10-13 21:42 | CT ---
NONCONTRAST CT ABDOMEN AND PELVIS 10/13/17 HISTORY: Right flank pain with onset of symptoms one and a half days prior to arrival. Patient also reports na usea. COMPARISON: 09/09/17. FINDINGS: Bilateral renal calculi are again seen. There is a right ureteral stent in place. Portion of the righ t ureteral stent proximally appears to be just outside of the renal parenchyma, although this could b e related to severe thinning of the renal parenchyma in this region and this stent could potentially be within a calyx, this is difficult to determine based on this exam. There is a lobulated appearance of each kidney. There are increased density subcentimeter lesions at the inferior pole left kidney probably related to Bosniak type II renal cystic lesions. There are als o small subcentimeter hypodense lesions of each kidney which are difficult to accurately characterize . There is minimal right hydronephrosis as well as dilatation of the right renal pelvis. There is incre ased density seen adjacent to the proximal portion of the right ureteral stent likely related to calc ruthy within the proximal right ureter; although, the calculus noted on the prior study has significant ly decreased in size likely related to interval treatment. There is prominence of the left renal pelvis, but no left ureteral calculus is present although there is mild asymmetric prominence of the distal left ureter. The urinary bladder is partially obscured d ue to significant streak artifact from postsurgical changes of each hip. Post cholecystectomy changes are noted. Vascular calcifications are again seen in the coronary arteries as well as involving the abdominal ao rta and iliac arteries. The heart is borderline enlarged. There are minimal chronic bibasilar lung changes as well as bibasilar atelectasis. Again noted is prominent dilatation of the extrahepatic common duct, but this is a stable finding, an d this is also stable when compared to the study in 2016. The common duct measures 1.8 cm in diameter with intrahepatic biliary dilatation. The findings may be related to prominent reservoir effect due to post cholecystectomy changes. Again these findings are stable. The spleen, pancreas, and bilateral adrenal glands demonstrate a grossly normal nonenhanced CT appear ance. There are multiple compression fractures involving lower thoracic as well as all of the lumbar verteb ral bodies which was also present on the prior exam. There is diffuse osteopenia present. The degree of height loss of the vertebral body fractures appears overall similar to the prior exam. IMPRESSION: 1. Right ureteral stent in place, but the most peripheral portion of the proximal stent appears to be just outside of the renal collecting system superiorly. However, this may be related to slice s election. This could potentially be related to focal area of parenchymal thinning and the pigtail por tion of the catheter within a renal calyx. There is certainly no adjacent fluid seen in a perirenal l ocation. 2. Nonobstructing bilateral renal calculi. 3. Small calculus/calculi adjacent to the proximal right ureteral stent. There is minimal hydron ephrosis on the right. 4. Subcentimeter too small to characterize hypodense lesions each kidney with subcentimeter Bosn iak type II cystic renal lesions at the inferior pole left kidney. 5. Post cholecystectomy changes with prominent dilatation of the extrahepatic common duct, but t his is stable compared to the prior study as well as the study in 2016. 6. Multiple compression fractures involving the visualized thoracic vertebral bodies as well as all of the lumbar vertebral bodies and the degree of height loss is unchanged. There is diffuse osteo penia present. POS: RAMIREZ
[2017-10-13] MEDS ORDERED: Meropenem 1 GM in Sterile Water 20 ML SLOW IVP SCH (22:00)
[2017-10-13] MEDS ORDERED: Sodium Chloride 0.9% 1,000 ML IV SCH (22:00)
[2017-10-13] MEDS ORDERED: Milk Of Magnesia 30 ML UDCUP PO PRN (23:50)
[2017-10-13] MEDS ORDERED: Senokot 8.6 MG TAB PO PRN (23:50)
[2017-10-13] MEDS ORDERED: cloNIDine 0.1 MG TAB PO PRN (23:52)
[2017-10-14] MEDS ORDERED: traZODone HCl 50 MG TAB PO SCH (00:30)
[2017-10-14] MEDS: HYDROcodone/Acetaminophen 5/325 mg Tablet PO PRN ×5 (00:35→21:30)
[2017-10-14] MEDS: Sodium Chloride 0.9% 1,000 ML IV SCH ×2 (00:40→17:34)
--- NOTE | 2017-10-14 02:11 | HP ---
PRIMARY CARE PHYSICIAN: Dr. Devi Cardenas. DATE OF SERVICE: 10/13/2017 REASON FOR ADMISSION: Urinary tract infection. HISTORY OF PRESENT ILLNESS: An 87-year-old female who lives at retirement. Patient was sent to em ergency room for evaluation of right flank pain. Patient does have chronic respiratory failure and s he is using oxygen 2-3 liter nasal cannula. Patient was having nausea and subjective fever. She was feeling dysuria as well. She denies any vomiting. She does not have any fever at retirement. Chuck gilda's pain intensity is about 7/10. This patient is not a good historian, so she does not describe her symptoms in detail. She was recently admitted in our hospital, and she was discharged from hospital on 10/01/2017. ALLERGIES: No known drug allergy. CURRENT HOME MEDICATIONS: Tylenol 650 mg q.6 hourly p.r.n., Xanax 0.25 mg p.o. daily, amlodipine 5 m g p.o. daily, Eliquis 2.5 mg p.o. b.i.d., calcium with vitamin D1 one tablet p.o. daily, vitamin D3 o f 1000 unit p.o. daily, clonidine 0.1 mg q.4 hourly p.r.n., Pepcid 20 mg p.o. b.i.d., ferrous sulfate 325 mg p.o. daily, DuoNeb q.6 hourly p.r.n., Synthroid 137 mcg p.o. daily, metoprolol succinate 150 mg p.o. daily, Claritin 10 mg p.o. daily, MS Contin 30 mg twice daily p.r.n., multivitamin 1 tablet p .o. daily, ropinirole 0.5 mg p.o. in evening, Senokot 2 tablets twice daily, Detrol 2 mg p.o. b.i.d., trazodone 50 mg p.o. at bedtime. REVIEW OF SYSTEMS: Please see my HPI for pertinent for positive and negative. All other review of s ystems reviewed and negative except as mentioned in the HPI: Constitutional: Weight loss or gain, a bility to conduct usual activities. Skin: Rash, itching. Eyes: Double vision, pain. ENT/Mouth: Nose bleeding, neck stiffness, pain, tenderness. Cardiovascular: Palpitations, dyspnea on exertion, orthopnea. Respiratory: Shortness of breath, wheezing, cough, hemoptysis, fever, or night sweats. Gastrointestinal: Poor appetite, abdominal pain, heartburn, nausea, vomiting, constipation, or diar samuel. Genitourinary: Urgency, frequency, dysuria, nocturia. Musculoskeletal: Pain, swelling. Mary rologic/Psychiatric: Anxiety, depression. Allergy/Immunologic: Skin rash, bleeding tendency. 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 PAST PSYCHIATRIC HISTORY: Anxiety and depression. PAST SURGICAL HISTORY: Cholecystectomy in 03/2017, appendicectomy, total abdominal hysterectomy, rig ht total hip replacement, left total hip replacement, tonsillectomy. FAMILY HISTORY: No strong family history of premature coronary artery disease, stroke, or cancer. SOCIAL HISTORY: Patient lives at retirement. She smoked in her earlier life, but quit more than 1 0 years ago. She denies any alcohol abuse. She denies any other illicit drug abuse. EMERGENCY ROOM COURSE: Patient is given IV fluid, morphine 4 mg, and Rocephin. PHYSICAL EXAMINATION: VITAL SIGNS: On arrival blood pressure 154/87, pulse 93, respiratory rate 20, temperature 98.7, satu ration 94% on room air, weight 56.7 kilograms. GENERAL: Patient is currently alert, awake, no obvious acute distress. HEAD: Normocephalic, atraumatic. EYES: Pupils round, reactive to light. Extraocular muscle intact. ENT: Oropharynx within normal limits. Moist mucous membranes. No oral lesion, no pharyngeal erythe ma, no exudate. NECK: Supple, no JVD, no thyromegaly, no carotid bruit, no jugular venous distention. LUNGS: Clear to auscultation without any rhonchi or rales. CARDIAC: S1, S2 regular without any significant murmur. ABDOMEN: Patient does have right CVA tenderness, right flank tenderness, no suprapubic discomfort. Otherwise, abdomen is soft and benign without any tenderness. No guarding, no rigidity, no rebound. Bowel sounds present. BACK: Right-sided CVA tenderness. EXTREMITIES: Upper extremity passive movement of all joints are normal. Lower extremity, no edema. Good peripheral pulsation. SKIN: No skin rash. HEMATOLOGICAL: No lymphadenopathy. PSYCHIATRIC: Normal affect. SIGNIFICANT LABORATORY DATA: CT of the abdomen and pelvis showing right ureteral stent in place. No nobstructive bilateral renal calculi, small calculi adjacent to the proximal right ureteral strength with minimum right hydronephrosis, multiple compression fracture of thoracic vertebral body with diff use osteopenia. CBC: WBC 5.9, hemoglobin 11.9, platelets 369. BMP: Sodium 129, potassium 4.6, chl oride 94, carbon dioxide 22, anion gap 18, BUN 25, creatinine 1.40, glucose 115, calcium 9.4. LFT: AST 30, ALT 15, alkaline phosphatase 91, albumin 4.1. Urinalysis suggestive of urinary tract infecti on. ASSESSMENT AND PLAN: 1. Ureteral colic. 2. Urinary tract infection. 3. Hyponatremia. 4. Chronic kidney disease, stage 3. 5. Normocytic normochromic anemia. 6. Bilateral nonobstructive nephrolithiasis with history of ureteral stent. 7. Anxiety and depression. 8. Chronic anticoagulation with Eliquis. 9. History of deep venous thrombosis. 10. Hypertension, uncontrolled. 11. Dyslipidemia. 12. Gastroesophageal reflux disease. 13. Restless leg syndrome. 14. Chronic pain disorder. 15. Chronic obstructive pulmonary disease with chronic respiratory failure on home oxygen. 16. Hypothyroidism. 17. Physical deconditioning. PLAN: Full admission to medical floor. Urology consultation. Empiric antibiotic therapy with merop enem, IV fluid at 75 mL per hour. Resume all her home medications. Follow up on urine culture resul t. Pain controlled with pain medication. Physical therapy evaluation. Monitor blood pressure and c ontrol blood pressure with blood pressure medication. Repeat labs tomorrow. Deep venous thrombosis prophylaxis. Patient is already on Eliquis therapy. Gastrointestinal prophyl axis. Pepcid 20 mg IV daily. CODE STATUS: Patient at this point FULL CODE. We will try to obtain code status from retirement. DISPOSITION PLAN: Based on clinical course, we are expecting patient's stay in hospital more than 2 midnights. Plan of care discussed with the patient in detail.
[2017-10-14] MEDS: Levothyroxine Sodium 25 MCG TAB PO SCH (05:00)
[2017-10-14] MEDS: Levothyroxine Sodium 112 MCG TAB PO SCH (05:01)
[2017-10-14 05:45] LABS: #Eosinphils 0.1 thou/uL (0.0-0.7); #Monocytes 0.5 thou/uL (0.11-0.59); #Neutrophils 4.3 thou/uL (1.40-6.50); %Basophils 0.7 % (0.0-1.0); %Eosinophils 1.7 % (0.0-10.0); %Lymphocytes 16.4 % (21.0-51.0); %Monocytes 7.7 % (0.0-10.0); %Neutrophils 73.5 % (42.0-75.0); Hemoglobin 10.7 g/dL (12.0-16.0); Mean Corpuscular HGB CONC 32.6 g/dL (32.0-36.0); Mean Corpuscular Hemoglobin 31.3 pg (27.0-31.0); Mean Corpuscular Volume 95.8 fl (81.0-99.0); Mean Platelet Volume 7.1 fL (7.4-10.4); Platelet Count 312 thou/uL (130-400); RBC Distribution Width 13.1 % (11.5-14.5); Red Blood Cell (RBC) Count 3.43 mill/uL (4.20-5.40); White Blood Cell (WBC) Count 5.8 thou/uL (4.8-10.8)
[2017-10-14 06:17] LABS: Anion Gap 13 mmol/L (10-20); BUN (Urea Nitrogen) 20 mg/dL (9.8-20.1); Calc. Creatinine Clearance 31 mL/min (70-130); Calcium 8.2 mg/dL (7.8-10.44); Carbon Dioxide 23 mmol/L (23-31); Chloride 101 mmol/L (98-107); Estimated GFR-MDRD 44; Glucose 80 mg/dL (83-110); Potassium 4.5 mmol/L (3.5-5.1); Sodium 132 mmol/L (136-145)
[2017-10-14] MEDS: Apixaban 5 MG TAB PO SCH ×2 (08:22→20:22)
[2017-10-14] MEDS: Senokot 8.6 MG TAB PO SCH ×2 (08:23→20:21)
[2017-10-14] MEDS: Calcium Carbonate + Vit D 1 TAB PO SCH (08:23)
[2017-10-14] MEDS: ALPRAZolam 0.25 MG TAB PO SCH (08:23)
[2017-10-14] MEDS: Ferrous Sulfate 325 MG TAB PO SCH (08:23)
[2017-10-14] MEDS: Loratadine 10 MG TAB PO SCH (08:23)
[2017-10-14] MEDS: Amlodipine 5 MG TAB PO SCH (08:24)
[2017-10-14] MEDS: Multivit, Therapeutic 1 TAB PO SCH (08:24)
[2017-10-14] MEDS: Famotidine/PF 20 mg/2ml Vial SLOW IVP SCH (08:24)
[2017-10-14] MEDS: TROSPIUM 20 MG TABLET PO SCH (08:25)
[2017-10-14] MEDS: Meropenem 1 GM in Syringe 20 ML IVPB SCH ×2 (08:34→21:31)
--- NOTE | 2017-10-14 13:24 | CON ---
DATE OF CONSULTATION: 10/14/2017 INPATIENT CONSULTATION REASON FOR CONSULT: History of recurrent kidney stone, status post right ureteral stent. PRIMARY UROLOGIST: Dr. Bran Forbes. HISTORY OF PRESENT ILLNESS: Ms. Thapa is a pleasant 87-year-old female, whom I seen for Dr. Forbes while I was covering, back in 09/09/2017, she presented with urosepsis, right hydronephrosis. She had a protracted hospital stay, due to deconditioned status and severe sepsis. She also had respiratory failure requiring intubation. Subsequently, she was transferred to senior care facility. Prior CT demonstrated right hydronephrosis due to 7 mm right proximal ureteral stone, craniocaudal dimension of the stone measuring approximately 1.2-2 cm. She has multiple bilateral large renal calculi burden. She presented a few weeks ago, subsequently due to similar discomfort; however , Urology was never called and subsequently discharged back to senior care facility. She currently presented with a history of vague right flank lower quadrant abdominal discomfort. Currently, she is resting comfortably and denies discomfort. Denies history of fever, chills or gross hematuria. Family at bedside. Last pain medication 6-8 hours ago with no significant recurrent discomfort PAST MEDICAL HISTORY: Anxiety, COPD, chronic pain, depression, GERD, hypertension, history of recurrent kidney stones, history of pneumonia, history of Escherichia coli urosepsis, respiratory failure on 08/2016. PAST SURGICAL HISTORY: Hip surgery, hysterectomy, 04/02/2016 cystoscopy of right stent, 03/18/2017 left ureteroscopy and laser lithotripsy, 6 x 24 double- J ureteral stent, 09/09/2017 cystoscopy, right retrograde ureteral stent. CURRENT MEDICATIONS: Include Roosevelt, Tylenol, albuterol, Xanax, Eliquis, calcium , Catapres, Feosol, Synthroid, Claritin, Milk of Magnesia, currently on meropenem, metoprolol, MS Contin, Theragran, Zofran, Requip, Senokot, Desyrel, trospium for bladder spasms. ALLERGIES: No known drug allergies. REVIEW OF SYSTEMS: Ten point review of systems as above, otherwise noncontributory. PHYSICAL EXAMINATION: She was admitted with no fever and continues to have no significant fever at 98, 84, 60, 98% on 2 liters, 144/81. General, patient eating her lunch, appears quite comfortable. Her appearance is significantly improved since I last saw her in August HEENT: Unremarkable Heart is regular rate Lungs: Clear to auscultation Abdomen: Soft nontender nondistended no flank tenderness no rigidity no rebound Extremities: No clubbing or significant edema Neurologic: No gross focal deficits Psychiatric: Appears appropriate White count is 5.8, hemoglobin 10, platelets 312. Creatinine is 1.1, this is significantly improved from her baseline which can be as high as 2.4, current urinalysis is trace leukocytes, large leukocytes, 11-20 rbc's, greater than 50 wbc's, no epithelials, rare bacteria. Blood cultures negative. Urine cultures pending. Urine culture on 09/09/[address] of the abdomen and pelvis stone protocol on 10/13/2017, right ureteral stent in place with stone nidus in the proximal ureter persistent, no significant hydronephrosis, bilateral nonobstructing renal calculi. Incidentally, right proximal ureteral stent, peripheral portion of the stent may be just outside the collecting system superiorly; however, may be a focal area of parenchymal thinning. There is no gross evidence of perinephric stranding or perirenal fluid collection. IMPRESSION/PLAN: Ms. Thapa is an 87-year-old female with history of recurrent kidney stones. She presented on 09/09/2017 with temperature of 103, Escherichia coli urosepsis, respiratory failure, status post right stent. I was providing coverage for Dr. Forbes at that time. She subsequently was transitioned to senior care facility due to deconditioned status and has an appointment with him this Monday to schedule elective ureteroscopy. I discussed with patient and family regarding her clinical status, CT findings. Urine culture is pending. Elective ureteroscopy, laser lithotripsy can proceed when urine culture finalized negative. Family requesting surgery to be considered on this admission, I informed them that I will inform Dr. Forbes when he is back on service. Options of discharging back to facility if urine culture finalize in the next 24 hours with outpatient followup with Dr. Forbes Monday also discussed. Patient's family requesting to be observed as inpatient for now, as they are concerned regarding recent admission due to similar complaints. I will follow along on this admission until final urine culture is back. She is clinically stable. Regarding incidental proximal portion in the renal parenchyma of the kidney, this is not of clinical significance, as there is significant improvement of her kidney function, resolution of her hydronephrosis. Currently on meropenem, which may be continued MTDD
--- NOTE | 2017-10-14 13:44 | PDOC.PN ---
- Subjective Encounter Start Date: 10/14/17 Encounter Start Time: 13:42 Subjective: feels much better.still some R flank pain travelling to R abdomen -: no N/V/D - Objective Resuscitation Status: Resuscitation Status FULL:Full Resuscitation MAR Reviewed: Yes Vital Signs & Weight: Vital Signs (12 hours) Temp Pulse Resp BP BP Pulse Ox 10/14/17 11:30 98.7 F 66 18 138/62 95 10/14/17 08:30 98.5 F 84 16 98 10/14/17 08:24 84 144/81 H 10/14/17 07:42 98 10/14/17 07:40 98.5 F 84 16 144/81 H 98 10/14/17 05:00 98.3 F 84 18 125/66 98 Weight Weight 126 lb I&O: 10/13/17 10/14/17 10/15/17 06:59 06:59 06:59 Intake Total 900 Balance 900 Result Diagrams: 10/14/17 05:10 10/14/17 05:10 Additional Labs: Microbiology 10/13/17 21:04 Venous blood - Left Hand Blood Culture - Preliminary Specimen has been received and culture in progress. No Growth to date. 10/13/17 20:56 Venous blood - Left Arm Blood Culture - Preliminary Specimen has been received and culture in progress. No Growth to date. 10/13/17 19:19 Urine voided Urine Culture - Preliminary Phys Exam - Physical Examination Constitutional: NAD HEENT: PERRLA, moist MMs, sclera anicteric, oral pharynx no lesions Neck: no nodes, no JVD, supple, full ROM Respiratory: no wheezing, no rales, no rhonchi, clear to auscultation bilateral Cardiovascular: RRR, no significant murmur, no rub, gallop Gastrointestinal: soft, non-tender, no distention, positive bowel sounds Musculoskeletal: no edema, pulses present Neurological: non-focal, normal sensation, moves all 4 limbs Psychiatric: normal affect, A&O x 3 Skin: no rash Dx/Plan (1) Complicated UTI (urinary tract infection) Code(s): N39.0 - URINARY TRACT INFECTION, SITE NOT SPECIFIED Status: Acute Comment: with nephrolithiasis (2) Bilateral ureteral calculi Code(s): N20.1 - CALCULUS OF URETER Status: Chronic (3) Atrial fibrillation with controlled ventricular response Code(s): I48.91 - UNSPECIFIED ATRIAL FIBRILLATION Status: Chronic (4) History of ureter stent Code(s): Z96.0 - PRESENCE OF UROGENITAL IMPLANTS Status: Chronic (5) CKD (chronic kidney disease) stage 3, GFR 30-59 ml/min Status: Chronic Comment: with kaleb (6) COPD (chronic obstructive pulmonary disease) Status: Chronic Qualifiers: Comment: No evidence of COPD exacerbation. (7) HTN (hypertension) Code(s): I10 - ESSENTIAL (PRIMARY) HYPERTENSION Status: Chronic Qualifiers: - Plan plan discussed w/ family, continue antibiotics, PT/OT, out of bed/ambulate, DVT proph w/SCDs cont meropenam.Urine Cx negative so far -: appreciate urology input.ureteral stent in place. -: cont home meds as below. HD stable -: am labs * . Review of Systems - Review of Systems Constitutional: weakness, malaise ENT: negative: Ear Pain, Ear Discharge, Nose Pain, Nose Discharge, Nose Congestion, Mouth Pain, Mouth Swelling, Throat Pain, Throat Swelling, Other Respiratory: negative: Cough, Dry, Shortness of Breath, Hemoptysis, SOB with Excertion, Pleuritic Pain, Sputum, Wheezing Cardiovascular: negative: chest pain, palpitations, orthopnea, paroxysmal nocturnal dyspnea, edema, light headedness, other Gastrointestinal: Abdominal Pain. negative: Nausea, Vomiting, Diarrhea, Constipation, Melena, Hematochezia, Other Genitourinary: negative: Dysuria, Frequency, Incontinence, Hematuria, Retention , Other Musculoskeletal: negative: Neck Pain, Shoulder Pain, Arm Pain, Back Pain, Hand Pain, Leg Pain, Foot Pain, Other Skin: negative: Rash, Lesions, Casey, Bruising, Other Neurological: negative: Weakness, Numbness, Incoordination, Change in Speech, Confusion, Seizures, Other - Medications/Allergies Allergies/Adverse Reactions: Allergies Allergy/AdvReac Type Severity Reaction Status Date / Time No Known Allergies Allergy Verified 09/30/17 01:05 Medications: Current Medications Acetaminophen (Tylenol) 650 mg PO Q4H PRN PRN Reason: Headache/Fever or Pain Hydrocodone Bitart/Acetaminophen ([place] 5/325) 1 tab PO Q4H PRN PRN Reason: Moderate Pain (4-6) Last Admin: 10/14/17 12:47 Dose: 1 tab Al Hydroxide/Mg Hydroxide (Maalox) 30 ml PO Q6H PRN PRN Reason: Heartburn or Indigestion Albuterol/Ipratropium (Duoneb) 3 ml NEB Q4H PRN PRN Reason: SOB &/or Wheezing Alprazolam (Xanax) 0.25 mg PO DAILY [facility] Last Admin: 10/14/17 08:23 Dose: 0.25 mg Amlodipine Besylate (Norvasc) 5 mg PO DAILY [facility] Last Admin: 10/14/17 08:24 Dose: 5 mg Apixaban (Eliquis) 2.5 mg PO BID [facility] Last Admin: 10/14/17 08:22 Dose: 2.5 mg Calcium/Vitamin D (Caltrate 600 + Vit D) 1 tab PO DAILY [facility] Last Admin: 10/14/17 08:23 Dose: 1 tab Cholecalciferol (Vitamin D3) 1,000 units PO DAILY [facility] Last Admin: 10/14/17 08:23 Dose: 1,000 units Clonidine (Catapres) 0.1 mg PO Q4H PRN PRN Reason: SBP > 180 Last Admin: 10/14/17 00:36 Dose: 0.1 mg Famotidine (Pepcid) 20 mg SLOW IVP DAILY [facility] Last Admin: 10/14/17 08:24 Dose: 20 mg Ferrous Sulfate (Feosol) 325 mg PO QAM-WM [facility] Last Admin: 10/14/17 08:23 Dose: 325 mg Sodium Chloride (Normal Saline 0.9%) 1,000 mls @ 70 mls/hr IV .[id number] [facility] Last Admin: 10/14/17 00:40 Dose: 1,000 mls Meropenem 1 gm/ Syringe 20 mls @ 240 mls/hr IVPB Q12HR [facility] Last Admin: 10/14/17 08:34 Dose: 20 mls Levothyroxine Sodium (Synthroid) 112 mcg PO 0600 [facility] Last Admin: 10/14/17 05:01 Dose: 112 mcg Levothyroxine Sodium (Synthroid) 25 mcg PO 0600 [facility] Last Admin: 10/14/17 05:00 Dose: 25 mcg Loratadine (Claritin) 10 mg PO DAILY [facility] Last Admin: 10/14/17 08:23 Dose: 10 mg Magnesium Hydroxide (Milk Of Magnesium) 30 ml PO DAILYPRN PRN PRN Reason: Constipation Metoprolol Succinate (Toprol Xl) 50 mg PO DAILY [facility] Last Admin: 10/14/17 08:23 Dose: 50 mg Morphine Sulfate (Ms Contin) 30 mg PO BID PRN PRN Reason: Pain Multivitamins (Theragran) 1 tab PO DAILY [facility] Last Admin: 10/14/17 08:24 Dose: 1 tab Ondansetron HCl (Zofran) 4 mg IVP Q6H PRN PRN Reason: Nausea/Vomiting Ropinirole HCl (Requip) 0.5 mg PO QPM [facility] Senna (Senokot) 2 tab PO HSPRN PRN PRN Reason: Constipation Senna (Senokot) 2 tab PO BID [facility] Last Admin: 10/14/17 08:23 Dose: 2 tab Trazodone HCl (Desyrel) 50 mg PO HS [facility] Trospium (Trospium) 20 mg PO DAILY [facility] Last Admin: 10/14/17 08:25 Dose: 20 mg
[2017-10-14] MEDS: Mag-Al 1200 mg/1200 mg/30 ML UDCUP PO PRN (17:36)
[2017-10-14] MEDS: rOPINIRole HCl 0.5 MG TAB PO SCH (20:26)
[2017-10-14] MEDS: traZODone HCl 50 MG TAB PO SCH (20:30)
[2017-10-15] MEDS: HYDROcodone/Acetaminophen 5/325 mg Tablet PO PRN ×2 (04:15→14:47)
[2017-10-15 05:12] LABS: #Eosinphils 0.3 thou/uL (0.0-0.7); #Lymphocytes 0.8 thou/uL (1.20-3.40); #Monocytes 0.7 thou/uL (0.11-0.59); #Neutrophils 4.5 thou/uL (1.40-6.50); %Basophils 0.5 % (0.0-1.0); %Eosinophils 4.4 % (0.0-10.0); %Lymphocytes 12.7 % (21.0-51.0); %Monocytes 10.4 % (0.0-10.0); %Neutrophils 72.1 % (42.0-75.0); Hemoglobin 10.3 g/dL (12.0-16.0); Mean Corpuscular Hemoglobin 30.8 pg (27.0-31.0); Mean Corpuscular Volume 96.2 fl (81.0-99.0); Mean Platelet Volume 6.6 fL (7.4-10.4); Platelet Count 326 thou/uL (130-400); RBC Distribution Width 13.2 % (11.5-14.5); Red Blood Cell (RBC) Count 3.33 mill/uL (4.20-5.40); White Blood Cell (WBC) Count 6.2 thou/uL (4.8-10.8)
[2017-10-15 05:31] LABS: Anion Gap 9 mmol/L (10-20); BUN (Urea Nitrogen) 15 mg/dL (9.8-20.1); Calc. Creatinine Clearance 33 mL/min (70-130); Carbon Dioxide 23 mmol/L (23-31); Chloride 107 mmol/L (98-107); Estimated GFR-MDRD 47; Glucose 93 mg/dL (83-110); Potassium 4.2 mmol/L (3.5-5.1); Sodium 135 mmol/L (136-145)
[2017-10-15] MEDS: Levothyroxine Sodium 25 MCG TAB PO SCH (06:17)
[2017-10-15] MEDS: Sodium Chloride 0.9% 1,000 ML IV SCH (06:17)
[2017-10-15] MEDS: Levothyroxine Sodium 112 MCG TAB PO SCH (06:17)
[2017-10-15] MEDS: Calcium Carbonate + Vit D 1 TAB PO SCH (08:12)
[2017-10-15] MEDS: Loratadine 10 MG TAB PO SCH (08:13)
[2017-10-15] MEDS: Ferrous Sulfate 325 MG TAB PO SCH (08:13)
[2017-10-15] MEDS: ALPRAZolam 0.25 MG TAB PO SCH (08:13)
[2017-10-15] MEDS: Senokot 8.6 MG TAB PO SCH ×2 (08:14→20:01)
[2017-10-15] MEDS: Amlodipine 5 MG TAB PO SCH (08:14)
[2017-10-15] MEDS: Apixaban 5 MG TAB PO SCH ×2 (08:15→20:01)
[2017-10-15] MEDS: Multivit, Therapeutic 1 TAB PO SCH (08:16)
[2017-10-15] MEDS: Famotidine/PF 20 mg/2ml Vial SLOW IVP SCH (08:16)
[2017-10-15] MEDS: Morphine ER 30 MG TAB PO PRN ×2 (08:17→20:02)
[2017-10-15] MEDS: TROSPIUM 20 MG TABLET PO SCH (08:18)
[2017-10-15] MEDS: Meropenem 1 GM in Syringe 20 ML IVPB SCH ×2 (09:32→20:01)
--- NOTE | 2017-10-15 12:58 | PRG ---
DATE OF SERVICE: 10/15/2017 SUBJECTIVE: No new complaints, pain is adequately controlled, states that it is better. PHYSICAL EXAMINATION: VITAL SIGNS: Stable, 98, 92, 14, 99% on room air, 116/61. ABDOMEN: Soft, nontender, nondistended, no gross CVA tenderness is appreciated. PERTINENT LABORATORY DATA: White count 6, hemoglobin 10, platelet 326. Creatinine is 1.1. Urine culture: Preliminary, mixed salina; final, pending. IMPRESSION AND PLAN: Ms. Thapa is an 87-year-old female with history of recurrent kidney stones, followed by Dr. Forbes. I had seen the patient for coverage back in August due to Escherichia coli urosepsis, status post right stent. Recent CT scan demonstrates no significant e hydronephrosis. Urine culture preliminary negative thus far. The patient desires to be observed until tomorrow, as she prefers to have her stone treated on this admission. I informed the patient that this will be up to Dr. Forbes, which I will inform when he resumes care of her tomorrow morning. She is hemodynamically/ clinically stable. N.p.o. after midnight. Pending Dr. Forbes's assessment. [facility]
--- NOTE | 2017-10-15 13:10 | PDOC.PN ---
- Subjective Encounter Start Date: 10/15/17 Encounter Start Time: 13:09 Subjective: feels good. still w some r flank pain - Objective Resuscitation Status: Resuscitation Status FULL:Full Resuscitation MAR Reviewed: Yes Vital Signs & Weight: Vital Signs (12 hours) Temp Pulse Resp BP BP Pulse Ox 10/15/17 11:47 98.9 F 92 14 116/61 99 10/15/17 08:53 99.6 F 96 14 98 10/15/17 08:14 96 138/77 10/15/17 08:13 99.6 F 96 14 138/77 98 10/15/17 03:55 98.7 F 93 16 170/88 H 98 Weight Weight 126 lb I&O: 10/14/17 10/15/17 10/16/17 06:59 06:59 06:59 Intake Total 900 2520 Balance 900 2520 Result Diagrams: 10/15/17 04:53 10/15/17 04:53 Additional Labs: Microbiology 10/13/17 21:04 Venous blood - Left Hand Blood Culture - Preliminary Specimen has been received and culture in progress. No Growth to date. 10/13/17 21:04 Venous blood - Left Hand Blood Culture - Preliminary NO GROWTH AT 48 HOURS 10/13/17 20:56 Venous blood - Left Arm Blood Culture - Preliminary Specimen has been received and culture in progress. No Growth to date. 10/13/17 20:56 Venous blood - Left Arm Blood Culture - Preliminary NO GROWTH AT 48 HOURS 10/13/17 19:19 Urine voided Urine Culture - Preliminary Laboratory Tests 10/13/17 10/14/17 10/15/17 17:24 05:10 04:53 Creatinine 1.40 H 1.18 H 1.11 H Phys Exam - Physical Examination Constitutional: NAD HEENT: PERRLA, moist MMs, sclera anicteric, oral pharynx no lesions Neck: no nodes, no JVD, supple, full ROM Respiratory: no wheezing, no rales, no rhonchi, clear to auscultation bilateral Cardiovascular: RRR, no significant murmur Gastrointestinal: soft, non-tender, no distention, positive bowel sounds Musculoskeletal: no edema, pulses present Neurological: non-focal, normal sensation, moves all 4 limbs Psychiatric: normal affect, A&O x 3 Skin: no rash Dx/Plan (1) Complicated UTI (urinary tract infection) Code(s): N39.0 - URINARY TRACT INFECTION, SITE NOT SPECIFIED Status: Acute Comment: with nephrolithiasis (2) Bilateral ureteral calculi Code(s): N20.1 - CALCULUS OF URETER Status: Chronic (3) Atrial fibrillation with controlled ventricular response Code(s): I48.91 - UNSPECIFIED ATRIAL FIBRILLATION Status: Chronic (4) History of ureter stent Code(s): Z96.0 - PRESENCE OF UROGENITAL IMPLANTS Status: Chronic (5) CKD (chronic kidney disease) stage 3, GFR 30-59 ml/min Status: Chronic Comment: with kaleb (6) COPD (chronic obstructive pulmonary disease) Status: Chronic Qualifiers: Comment: No evidence of COPD exacerbation. (7) HTN (hypertension) Code(s): I10 - ESSENTIAL (PRIMARY) HYPERTENSION Status: Chronic Qualifiers: - Plan continue antibiotics, respiratory therapy, incentive spirometry, out of bed/ ambulate, DVT proph w/SCDs cont meropenam for now. urine Cx remains negative -: appreciate urology recs -: major will need ureteroscopy w stone extraction.defer to urology -: cont home meds as below.on Eliquis which will need to be stopped -: am labs.supportive care * . Review of Systems - Review of Systems Constitutional: negative: fever, chills, sweats, weakness, malaise, other ENT: negative: Ear Pain, Ear Discharge, Nose Pain, Nose Discharge, Nose Congestion, Mouth Pain, Mouth Swelling, Throat Pain, Throat Swelling, Other Respiratory: negative: Cough, Dry, Shortness of Breath, Hemoptysis, SOB with Excertion, Pleuritic Pain, Sputum, Wheezing Cardiovascular: negative: chest pain, palpitations, orthopnea, paroxysmal nocturnal dyspnea, edema, light headedness, other Gastrointestinal: negative: Nausea, Vomiting, Abdominal Pain, Diarrhea, Constipation, Melena, Hematochezia, Other Genitourinary: negative: Dysuria, Frequency, Incontinence, Hematuria, Retention , Other Musculoskeletal: negative: Neck Pain, Shoulder Pain, Arm Pain, Back Pain, Hand Pain, Leg Pain, Foot Pain, Other Skin: negative: Rash, Lesions, Casey, Bruising, Other Neurological: negative: Weakness, Numbness, Incoordination, Change in Speech, Confusion, Seizures, Other - Medications/Allergies Allergies/Adverse Reactions: Allergies Allergy/AdvReac Type Severity Reaction Status Date / Time No Known Allergies Allergy Verified 09/30/17 01:05 Medications: Current Medications Acetaminophen (Tylenol) 650 mg PO Q4H PRN PRN Reason: Headache/Fever or Pain Hydrocodone Bitart/Acetaminophen ([place] 5/325) 1 tab PO Q4H PRN PRN Reason: Moderate Pain (4-6) Last Admin: 10/15/17 04:15 Dose: 1 tab Al Hydroxide/Mg Hydroxide (Maalox) 30 ml PO Q6H PRN PRN Reason: Heartburn or Indigestion Last Admin: 10/14/17 17:36 Dose: 30 ml Albuterol/Ipratropium (Duoneb) 3 ml NEB Q4H PRN PRN Reason: SOB &/or Wheezing Alprazolam (Xanax) 0.25 mg PO DAILY [facility] Last Admin: 10/15/17 08:13 Dose: 0.25 mg Amlodipine Besylate (Norvasc) 5 mg PO DAILY [facility] Last Admin: 10/15/17 08:14 Dose: 5 mg Apixaban (Eliquis) 2.5 mg PO BID [facility] Last Admin: 10/15/17 08:15 Dose: 2.5 mg Calcium/Vitamin D (Caltrate 600 + Vit D) 1 tab PO DAILY [facility] Last Admin: 10/15/17 08:12 Dose: 1 tab Cholecalciferol (Vitamin D3) 1,000 units PO DAILY [facility] Last Admin: 10/15/17 08:13 Dose: 1,000 units Clonidine (Catapres) 0.1 mg PO Q4H PRN PRN Reason: SBP > 180 Last Admin: 10/14/17 00:36 Dose: 0.1 mg Famotidine (Pepcid) 20 mg SLOW IVP DAILY [facility] Last Admin: 10/15/17 08:16 Dose: 20 mg Ferrous Sulfate (Feosol) 325 mg PO QAM-WM [facility] Last Admin: 10/15/17 08:13 Dose: 325 mg Meropenem 1 gm/ Syringe 20 mls @ 240 mls/hr IVPB Q12HR [facility] Last Admin: 10/15/17 09:32 Dose: 20 mls Levothyroxine Sodium (Synthroid) 112 mcg PO 0600 [facility] Last Admin: 10/15/17 06:17 Dose: 112 mcg Levothyroxine Sodium (Synthroid) 25 mcg PO 0600 [facility] Last Admin: 10/15/17 06:17 Dose: 25 mcg Loratadine (Claritin) 10 mg PO DAILY [facility] Last Admin: 10/15/17 08:13 Dose: 10 mg Magnesium Hydroxide (Milk Of Magnesium) 30 ml PO DAILYPRN PRN PRN Reason: Constipation Metoprolol Succinate (Toprol Xl) 50 mg PO DAILY [facility] Last Admin: 10/15/17 08:14 Dose: 50 mg Morphine Sulfate (Ms Contin) 30 mg PO BID PRN PRN Reason: Pain Last Admin: 10/15/17 08:17 Dose: 30 mg Multivitamins (Theragran) 1 tab PO DAILY [facility] Last Admin: 10/15/17 08:16 Dose: 1 tab Ondansetron HCl (Zofran) 4 mg IVP Q6H PRN PRN Reason: Nausea/Vomiting Ropinirole HCl (Requip) 0.5 mg PO QPM [facility] Last Admin: 10/14/17 20:26 Dose: 0.5 mg Senna (Senokot) 2 tab PO HSPRN PRN PRN Reason: Constipation Senna (Senokot) 2 tab PO BID [facility] Last Admin: 10/15/17 08:14 Dose: 2 tab Trazodone HCl (Desyrel) 50 mg PO HS [facility] Last Admin: 10/14/17 20:30 Dose: 50 mg Trospium (Trospium) 20 mg PO DAILY [facility] Last Admin: 10/15/17 08:18 Dose: 20 mg
[2017-10-15] MEDS: Acetaminophen 325 MG TAB PO PRN (17:16)
[2017-10-15] MEDS: traZODone HCl 50 MG TAB PO SCH (20:01)
[2017-10-15] MEDS: rOPINIRole HCl 0.5 MG TAB PO SCH (20:02)
[2017-10-16] MEDS: HYDROcodone/Acetaminophen 5/325 mg Tablet PO PRN (03:56)
[2017-10-16] MEDS: Levothyroxine Sodium 25 MCG TAB PO SCH (05:41)
[2017-10-16] MEDS: Levothyroxine Sodium 112 MCG TAB PO SCH (05:41)
[2017-10-16 06:00] LABS: Anion Gap 10 mmol/L (10-20); BUN (Urea Nitrogen) 13 mg/dL (9.8-20.1); Calc. Creatinine Clearance 33 mL/min (70-130); Calcium 8.2 mg/dL (7.8-10.44); Carbon Dioxide 24 mmol/L (23-31); Chloride 103 mmol/L (98-107); Estimated GFR-MDRD 47; Glucose 90 mg/dL (83-110); Potassium 4.4 mmol/L (3.5-5.1); Sodium 133 mmol/L (136-145)
[2017-10-16] MEDS: Senokot 8.6 MG TAB PO SCH ×2 (08:12→21:49)
[2017-10-16] MEDS: Calcium Carbonate + Vit D 1 TAB PO SCH (08:12)
[2017-10-16] MEDS: Ferrous Sulfate 325 MG TAB PO SCH (08:12)
[2017-10-16] MEDS: Apixaban 5 MG TAB PO SCH ×2 (08:12→21:49)
[2017-10-16] MEDS: Loratadine 10 MG TAB PO SCH (08:12)
[2017-10-16] MEDS: Amlodipine 5 MG TAB PO SCH (08:12)
[2017-10-16] MEDS: Famotidine/PF 20 mg/2ml Vial SLOW IVP SCH (08:13)
[2017-10-16] MEDS: ALPRAZolam 0.25 MG TAB PO SCH (08:13)
[2017-10-16] MEDS: Multivit, Therapeutic 1 TAB PO SCH (08:13)
[2017-10-16] MEDS: TROSPIUM 20 MG TABLET PO SCH (08:13)
[2017-10-16] MEDS: Morphine ER 30 MG TAB PO PRN ×2 (08:33→22:00)
[2017-10-16] MEDS: Meropenem 1 GM in Syringe 20 ML IVPB SCH ×2 (08:33→21:47)
[2017-10-16] MEDS ORDERED: Iothalamate Meglumine 60% 50 ML VIAL FS ONE (09:26)
[2017-10-16] MEDS: Fluconazole 100 MG TAB PO SCH (10:25)
[2017-10-16] MEDS ORDERED: Fentanyl 250 MCG/5 ML VIAL ONE ×2 (11:29→15:41)
--- NOTE | 2017-10-16 13:06 | OP ---
DATE OF PROCEDURE: 10/16/2017 PREOPERATIVE DIAGNOSIS: Right ureteral stone. POSTOPERATIVE DIAGNOSES: Right ureteral stone and right renal stone. PROCEDURES: Cystoscopy, ureteroscopy, laser lithotripsy, stone removal, stent placement. SURGEON: Bran Forbes M.D. ANESTHESIA: General. INDICATIONS: Ms. Thapa is an 87-year-old female with a history of stone disease. She recently devel oped an upper ureteral stone with obstruction and had a stent placed. She had infection at that time . She has been treated appropriately for infection and was recently readmitted for flank pain. She is being brought to the operating room at this time for management of her stone disease. DETAILS OF PROCEDURE: The patient was given general anesthesia and IV antibiotics. She was sterilel y prepped and draped in lithotomy position. A cystoscope was passed in the bladder. The indwelling ureteral stent was brought out to the urethral meatus and a guidewire was passed through the ureteral stent coiled in the right renal pelvis. A rigid ureteroscopy was performed up to an upper ureteral stone which was embedded in the mucosa. It could be freed and then migrated into the kidney. A flex ible ureteroscope was then passed in the kidney and the stone was fragmented into multiple tiny piece s. The larger stone was also visualized and there was also fragmented with the holmium laser. At th e termination of the procedure, all treatable stones were fragmented into tiny stone fragments. A 6 x 24 double-J stent was passed over the guidewire and coiled in the right renal pelvis and the bladde r is determined fluoroscopically and cystoscopically. Patient tolerated the procedure well. She was transported from the operating room to recovery room in stable condition. COMPLICATIONS: None. ESTIMATED BLOOD LOSS: Minimal.
[2017-10-16] MEDS ORDERED: Meperidine HCl/PF 25 MG/ML VIAL ONE (13:13)
[2017-10-16] MEDS ORDERED: Labetalol HCl 100 MG/20 ML VIAL ONE (13:54)
[2017-10-16] MEDS ORDERED: Esmolol 100 MG/10 ML VIAL ONE (13:57)
[2017-10-16] MEDS ORDERED: Ondansetron HCl/PF 4 MG/2 ML Vial ONE ×2 (15:03→17:23)
--- NOTE | 2017-10-16 15:13 | RAD ---
RETROGRADE UROGRAM: DATE: 10/16/17. HISTORY: Stent replacement. COMPARISON: 09/09/17. FINDINGS: A right ureteral stent is noted in place with guidewire within the ureteral stent. The proximal port ion of the ureteral stent overlies the right renal pelvis, and there is opacification of the renal co llecting system demonstrating at least mild right hydronephrosis. The lower pelvis is not well image d on this exam. There are multiple compression fractures involving the lower thoracic as well as lumbar vertebral bod ies of indeterminate age. Vascular calcifications are seen in the abdominal aorta and iliac arteries . IMPRESSION: 1. Right ureteral stent replacement with mild right hydronephrosis. 2. Multiple compression fractures of lower thoracic as well as involving the lumbar vertebral bodies of indeterminate age but were present on the prior exam. POS: RAMIREZ
--- NOTE | 2017-10-16 15:34 | PDOC.PN ---
- Subjective Encounter Start Date: 10/16/17 Encounter Start Time: 15:32 Subjective: seen in PACU.s/p lithotripsy & stone extraction -: uncomfortable w nausea.HR very high ,in 120-140s -: denies any chest pain/SOB - Objective Resuscitation Status: Resuscitation Status FULL:Full Resuscitation MAR Reviewed: Yes Vital Signs & Weight: Vital Signs (12 hours) Temp Pulse Resp BP BP Pulse Ox 10/16/17 08:12 99 172/82 H 10/16/17 08:11 98.6 F 99 20 95 10/16/17 08:00 98.6 F 99 20 172/82 H 95 10/16/17 04:00 99.2 F 98 16 134/69 94 L Weight Weight 126 lb I&O: 10/15/17 10/16/17 10/17/17 06:59 06:59 06:59 Intake Total 2520 100 Balance 2520 100 Result Diagrams: 10/15/17 04:53 10/16/17 04:59 Additional Labs: Microbiology 10/13/17 19:19 Urine voided Urine Culture - Final Yeast species 10/13/17 21:04 Venous blood - Left Hand Blood Culture - Preliminary NO GROWTH AT 48 HOURS 10/13/17 20:56 Venous blood - Left Arm Blood Culture - Preliminary NO GROWTH AT 48 HOURS Phys Exam - Physical Examination uncomfortable but awake,alert HEENT: PERRLA, moist MMs, sclera anicteric, oral pharynx no lesions Neck: no nodes, no JVD, supple, full ROM Respiratory: no wheezing, no rales, no rhonchi, clear to auscultation bilateral Cardiovascular: RRR, no significant murmur Gastrointestinal: soft, no distention mildly tender to palpation Musculoskeletal: no edema, pulses present Neurological: non-focal, normal sensation, moves all 4 limbs Psychiatric: normal affect, A&O x 3 Skin: no rash Dx/Plan (1) Atrial fibrillation with RVR Code(s): I48.91 - UNSPECIFIED ATRIAL FIBRILLATION Status: Suspected (2) Complicated UTI (urinary tract infection) Code(s): N39.0 - URINARY TRACT INFECTION, SITE NOT SPECIFIED Status: Acute Comment: with nephrolithiasis (3) Bilateral ureteral calculi Code(s): N20.1 - CALCULUS OF URETER Status: Chronic (4) Atrial fibrillation with controlled ventricular response Code(s): I48.91 - UNSPECIFIED ATRIAL FIBRILLATION Status: Chronic (5) History of ureter stent Code(s): Z96.0 - PRESENCE OF UROGENITAL IMPLANTS Status: Chronic (6) CKD (chronic kidney disease) stage 3, GFR 30-59 ml/min Status: Chronic Comment: with kaleb (7) COPD (chronic obstructive pulmonary disease) Status: Chronic Qualifiers: Comment: No evidence of COPD exacerbation. (8) HTN (hypertension) Code(s): I10 - ESSENTIAL (PRIMARY) HYPERTENSION Status: Chronic Qualifiers: - Plan plan discussed w/ family, continue antibiotics, PT/OT, DVT proph w/SCDs will give cardiazem IV & may need cardiazem drip if no response. -: monitor BP for any drops.If needed,will give digoxin IV -: consult cardiology given h/o a-futter w ablations.transfer to tele -: s/p Lithotripsy & stone removal,stent placement.post-op care -: cont empiric ABx for now.urine Cx remains negative * . Review of Systems - Review of Systems Constitutional: chills ENT: negative: Ear Pain, Ear Discharge, Nose Pain, Nose Discharge, Nose Congestion, Mouth Pain, Mouth Swelling, Throat Pain, Throat Swelling, Other Respiratory: negative: Cough, Dry, Shortness of Breath, Hemoptysis, SOB with Excertion, Pleuritic Pain, Sputum, Wheezing Cardiovascular: palpitations. negative: chest pain, orthopnea, paroxysmal nocturnal dyspnea, edema, light headedness, other Gastrointestinal: Nausea, Abdominal Pain. negative: Vomiting, Diarrhea, Constipation, Melena, Hematochezia, Other Genitourinary: negative: Dysuria, Frequency, Incontinence, Hematuria, Retention , Other Musculoskeletal: negative: Neck Pain, Shoulder Pain, Arm Pain, Back Pain, Hand Pain, Leg Pain, Foot Pain, Other Skin: negative: Rash, Lesions, Casey, Bruising, Other - Medications/Allergies Allergies/Adverse Reactions: Allergies Allergy/AdvReac Type Severity Reaction Status Date / Time No Known Allergies Allergy Verified 09/30/17 01:05 Medications: Current Medications Acetaminophen (Tylenol) 650 mg PO Q4H PRN PRN Reason: Headache/Fever or Pain Last Admin: 10/15/17 17:16 Dose: 650 mg Hydrocodone Bitart/Acetaminophen ([place] 5/325) 1 tab PO Q4H PRN PRN Reason: Moderate Pain (4-6) Last Admin: 10/16/17 03:56 Dose: 1 tab Al Hydroxide/Mg Hydroxide (Maalox) 30 ml PO Q6H PRN PRN Reason: Heartburn or Indigestion Last Admin: 10/14/17 17:36 Dose: 30 ml Albuterol/Ipratropium (Duoneb) 3 ml NEB Q4H PRN PRN Reason: SOB &/or Wheezing Alprazolam (Xanax) 0.25 mg PO DAILY [facility] Last Admin: 10/16/17 08:13 Dose: 0.25 mg Amlodipine Besylate (Norvasc) 5 mg PO DAILY [facility] Last Admin: 10/16/17 08:12 Dose: 5 mg Apixaban (Eliquis) 2.5 mg PO BID [facility] Last Admin: 10/16/17 08:12 Dose: 2.5 mg Calcium/Vitamin D (Caltrate 600 + Vit D) 1 tab PO DAILY [facility] Last Admin: 10/16/17 08:12 Dose: 1 tab Cholecalciferol (Vitamin D3) 1,000 units PO DAILY [facility] Last Admin: 10/16/17 08:12 Dose: 1,000 units Clonidine (Catapres) 0.1 mg PO Q4H PRN PRN Reason: SBP > 180 Last Admin: 10/14/17 00:36 Dose: 0.1 mg Famotidine (Pepcid) 20 mg SLOW IVP DAILY [facility] Last Admin: 10/16/17 08:13 Dose: 20 mg Ferrous Sulfate (Feosol) 325 mg PO QAM-[facility] Last Admin: 10/16/17 08:12 Dose: 325 mg Fluconazole (Diflucan) 100 mg PO DAILY [facility] Last Admin: 10/16/17 10:25 Dose: Not Given Meropenem 1 gm/ Syringe 20 mls @ 240 mls/hr IVPB Q12HR [facility] Last Admin: 10/16/17 08:33 Dose: 20 mls Levothyroxine Sodium (Synthroid) 112 mcg PO 0600 [facility] Last Admin: 10/16/17 05:41 Dose: 112 mcg Levothyroxine Sodium (Synthroid) 25 mcg PO 0600 [facility] Last Admin: 10/16/17 05:41 Dose: 25 mcg Loratadine (Claritin) 10 mg PO DAILY [facility] Last Admin: 10/16/17 08:12 Dose: 10 mg Magnesium Hydroxide (Milk Of Magnesium) 30 ml PO DAILYPRN PRN PRN Reason: Constipation Metoprolol Succinate (Toprol Xl) 50 mg PO DAILY [facility] Last Admin: 10/16/17 08:12 Dose: 50 mg Morphine Sulfate (Ms Contin) 30 mg PO BID PRN PRN Reason: Pain Last Admin: 10/16/17 08:33 Dose: 30 mg Multivitamins (Theragran) 1 tab PO DAILY [facility] Last Admin: 10/16/17 08:13 Dose: 1 tab Ondansetron HCl (Zofran) 4 mg IVP Q6H PRN PRN Reason: Nausea/Vomiting Ropinirole HCl (Requip) 0.5 mg PO QPM [facility] Last Admin: 10/15/17 20:02 Dose: 0.5 mg Senna (Senokot) 2 tab PO HSPRN PRN PRN Reason: Constipation Senna (Senokot) 2 tab PO BID [facility] Last Admin: 10/16/17 08:12 Dose: 2 tab Trazodone HCl (Desyrel) 50 mg PO HS [facility] Last Admin: 10/15/17 20:01 Dose: 50 mg Trospium (Trospium) 20 mg PO DAILY [facility] Last Admin: 10/16/17 08:13 Dose: 20 mg
[2017-10-16] MEDS ORDERED: Diltiazem 125 MG in Sodium Chloride 0.9% 100 ML IVPB SCH (15:45)
[2017-10-16] MEDS: Acetaminophen 325 MG TAB PO PRN (17:15)
[2017-10-16] MEDS ORDERED: Lidocaine 1% PF 5 ML VIAL ONE (17:23)
[2017-10-16] MEDS ORDERED: PHENYLEPHRINE-NS 100 MCG/ML 10 ML SYRINGE ONE (17:23)
[2017-10-16] MEDS ORDERED: Dexamethasone 20 MG/5 ML VIAL ONE (17:23)
[2017-10-16] MEDS ORDERED: PROPOFOL 200 MG/20 ML VIAL ONE (17:23)
[2017-10-16] MEDS ORDERED: Ondansetron HCl/PF 4 MG/2 ML Vial IVP PRN (18:06)
[2017-10-16] MEDS ORDERED: Promethazine HCl 25 MG/ML VIAL IM/IV PRN (18:06)
[2017-10-16] MEDS: Sodium Chloride 0.9% 1,000 ML IV SCH ×2 (19:12→22:41)
[2017-10-16] MEDS ORDERED: Digoxin 0.5 MG/2 ML AMP SLOW IVP SCH (19:30)
[2017-10-16] MEDS ORDERED: Sodium Chloride 0.9% 500 ML IV SCH (19:30)
[2017-10-16] MEDS: rOPINIRole HCl 0.5 MG TAB PO SCH (21:49)
[2017-10-16] MEDS: traZODone HCl 50 MG TAB PO SCH (21:58)
--- NOTE | 2017-10-17 02:17 | CON ---
DATE OF CONSULTATION: 10/16/2017 HISTORY OF PRESENT ILLNESS: Mimi Thapa is an 87-year-old white female that has been followed by Dr. Soto since 04/2015. At that time, she had been at [facility] and felt weak, lightheaded, and her heart racing. She was found to be in atrial flutter. She underwent ablation of her atrial flutter by Dr. Valerio on 05/01/2015. She was also felt that she had atrial fibrillation. She was continued on Eliquis afterwards. She was last seen by Dr. Soto on 06/15/2017 and she was in sinus rhythm at that time. It was also of note that she was on digoxin 0.125 every Monday, Monday, Monday as well as metoprolol 50 mg one-half tablet daily. She has had significant problems recently with urinary tract infections with nephrolithiasis. She has had hospitalizations for this recently and she had severe sepsis with septic shock as well as hypoxic respiratory failure requiring intubation. She now is admitted on 10/14/2017 for evaluation of right flank pain. She had been using O2 2-3 liters frequently. Today, she underwent cystoscopy, ureteroscopy, laser lithotripsy with stone removal and stent placement. Apparently postoperatively she was noted to have rapid heartbeat. Ms. Thapa is unaware that her heart was beating rapidly today. She denies any chest discomfort. She has her baseline shortness of breath, does not appear to be bothering her much. PAST MEDICAL HISTORY: Paroxysmal atrial fibrillation on chronic anticoagulation , COPD, nephrolithiasis, recurrent UTIs, hypertension, GERD, osteoporosis, history of left leg DVT, hypothyroidism, deconditioning, history of pelvic fracture. OPERATIONS: Cholecystectomy, nephrostomy, appendectomy, hysterectomy, tonsillectomy, right total hip replacement, left total hip replacement. SOCIAL HISTORY: She stopped smoking more than 10 years ago. She does not drink. FAMILY HISTORY: Negative for coronary artery disease. REVIEW OF SYSTEMS: Twelve-point review of systems otherwise unremarkable. MEDICATIONS: (Digoxin 0.125 every Monday, Monday and Monday, does not appear on her medication list). Xanax 0.25 daily, amlodipine 5 daily, Eliquis 2.5 mg b.i.d., Catapres 0.1 mg q.4 hours p.r.n., vitamin D3, Pepcid 20 b.i.d., ferrous sulfate 325 daily, DuoNebs q.4 hours p.r.n., levothyroxine 137 mcg daily , Claritin p.r.n., metoprolol 50 daily, MS Contin 2 tablets b.i.d. p.r.n., multivitamin, Requip 0.5 mg q.p.m., Senokot 2 tablets b.i.d., Detrol 2 mg b.i.d. , trazodone 50 at bedtime. PHYSICAL EXAMINATION: VITAL SIGNS: Blood pressure was 172/82, however, it has fallen to systolic pressures in the 70s, heart rate 100-120 per minute, temperature 102.5. Her Cardizem drip has been discontinued due to her hypotension. HEENT: PERRL. NECK: Supple. LUNGS: Chest is clear. CARDIAC: S1 and S2 are normal, without any S3, S4 or murmurs. ABDOMEN: Normal bowel sounds. EXTREMITIES: Revealed no edema. NEUROLOGIC: Grossly intact. SKIN: Warm and dry. LABORATORY AND IMAGING DATA: EKG reveals atypical atrial flutter with a ventricular rate of 97 per minute. Hemoglobin 10.3, hematocrit 32.1, white count 6200, platelets 326,000. Sodium 133, potassium 4.4, chloride 103, carbon dioxide 24, BUN 13, creatinine 1.11. IMPRESSION: 1. Hypotension associated with probable urosepsis with temperature of 102.5 post-lithotripsy. 2. Recurrent urinary tract infections and nephrolithiasis. 3. Status post atrial flutter ablation in 04/2015. 4. The patient continues with recurrent episodes of atrial fibrillation and now appears to have atypical atrial flutter. 5. Hypertension. 6. History of deep venous thrombosis. 7. Deconditioning. 8. Hypothyroidism. PLAN: With the patient's current blood pressure, she will be given 500 mL bolus of normal saline. Also, digoxin 0.5 mg to be given intravenously in the hopes of slowing her rate. Consideration should be given to move into a more advanced area of care since in the past, she has developed hypoxia and rapid deterioration requiring intubation. [facility]
[2017-10-17] MEDS: HYDROcodone/Acetaminophen 5/325 mg Tablet PO PRN ×2 (04:21→16:29)
[2017-10-17] MEDS: Levothyroxine Sodium 25 MCG TAB PO SCH (06:30)
[2017-10-17] MEDS: Levothyroxine Sodium 112 MCG TAB PO SCH (06:30)
[2017-10-17] MEDS: Meropenem 1 GM in Syringe 20 ML IVPB SCH ×2 (08:31→20:32)
[2017-10-17] MEDS: ALPRAZolam 0.25 MG TAB PO SCH (08:32)
[2017-10-17] MEDS: Ferrous Sulfate 325 MG TAB PO SCH (08:32)
[2017-10-17] MEDS: Loratadine 10 MG TAB PO SCH (08:32)
[2017-10-17] MEDS: TROSPIUM 20 MG TABLET PO SCH (08:32)
[2017-10-17] MEDS: Apixaban 5 MG TAB PO SCH ×2 (08:32→20:33)
[2017-10-17] MEDS: Calcium Carbonate + Vit D 1 TAB PO SCH (08:32)
[2017-10-17] MEDS: Fluconazole 100 MG TAB PO SCH (08:32)
[2017-10-17] MEDS: Sodium Chloride 0.9% 1,000 ML IV SCH (08:33)
[2017-10-17] MEDS: Senokot 8.6 MG TAB PO SCH ×2 (08:33→20:33)
[2017-10-17] MEDS: Multivit, Therapeutic 1 TAB PO SCH (08:33)
[2017-10-17] MEDS: Famotidine/PF 20 mg/2ml Vial SLOW IVP SCH (08:33)
[2017-10-17] MEDS: Morphine ER 30 MG TAB PO PRN ×2 (10:01→22:09)
--- NOTE | 2017-10-17 12:00 | PDOC.PN ---
- Subjective Encounter Start Date: 10/17/17 Encounter Start Time: 11:59 Subjective: feels better today.no vomiting/AP/nausea.weak and tired - Objective Resuscitation Status: Resuscitation Status FULL:Full Resuscitation MAR Reviewed: Yes Vital Signs & Weight: Vital Signs (12 hours) Temp Pulse Resp BP Pulse Ox 10/17/17 08:00 98.3 F 80 18 102/51 L 98 10/17/17 03:51 98.3 F 81 18 101/53 L 97 10/17/17 01:49 95 10/17/17 00:02 98.4 F 66 16 82/48 L 96 Weight Weight 126 lb I&O: 10/16/17 10/17/17 10/18/17 06:59 06:59 06:59 Intake Total 100 1565 Output Total 550 Balance 100 1015 Result Diagrams: 10/15/17 04:53 10/16/17 04:59 Phys Exam - Physical Examination Constitutional: NAD walking around in the room HEENT: PERRLA, moist MMs, sclera anicteric, oral pharynx no lesions Neck: no nodes, no JVD, supple, full ROM Respiratory: no wheezing, no rales, no rhonchi, clear to auscultation bilateral Cardiovascular: RRR, no significant murmur Gastrointestinal: soft, non-tender, no distention, positive bowel sounds Musculoskeletal: no edema, pulses present Neurological: non-focal, normal sensation, moves all 4 limbs Psychiatric: normal affect, A&O x 3 Skin: no rash Dx/Plan (1) Atrial fibrillation with RVR Code(s): I48.91 - UNSPECIFIED ATRIAL FIBRILLATION Status: Suspected Comment : NSR now.off of cardiazem drip due to low BP (2) Complicated UTI (urinary tract infection) Code(s): N39.0 - URINARY TRACT INFECTION, SITE NOT SPECIFIED Status: Acute Comment: with nephrolithiasis (3) Bilateral ureteral calculi Code(s): N20.1 - CALCULUS OF URETER Status: Chronic Comment: s/p ureteroscopy & lithotripasy and stent placement 10/16/17 (4) History of ureter stent Code(s): Z96.0 - PRESENCE OF UROGENITAL IMPLANTS Status: Chronic (5) CKD (chronic kidney disease) stage 3, GFR 30-59 ml/min Status: Chronic Comment: with kaleb (6) COPD (chronic obstructive pulmonary disease) Status: Chronic Qualifiers: Comment: No evidence of COPD exacerbation. (7) HTN (hypertension) Code(s): I10 - ESSENTIAL (PRIMARY) HYPERTENSION Status: Chronic Qualifiers: - Plan continue antibiotics, PT/OT, out of bed/ambulate, DVT proph w/SCDs 1 episdoe of fever.Cx remain negative.on meropenam & Diflucan for UTI -: NSR.EP to see given h/o a-flutter.on Eliquis,BB. -: BP improved w IVF .continue.Meds on hold untill BP better -: May need repeat ablation.cardiology following. ECHO 08/31-Diastolic Dysfx -: monitor for fluid overload.hemodynamically stable.DC IVF * . Review of Systems - Review of Systems Constitutional: weakness, malaise ENT: negative: Ear Pain, Ear Discharge, Nose Pain, Nose Discharge, Nose Congestion, Mouth Pain, Mouth Swelling, Throat Pain, Throat Swelling, Other Respiratory: negative: Cough, Dry, Shortness of Breath, Hemoptysis, SOB with Excertion, Pleuritic Pain, Sputum, Wheezing Cardiovascular: negative: chest pain, palpitations, orthopnea, paroxysmal nocturnal dyspnea, edema, light headedness, other Gastrointestinal: negative: Nausea, Vomiting, Abdominal Pain, Diarrhea, Constipation, Melena, Hematochezia, Other Genitourinary: negative: Dysuria, Frequency, Incontinence, Hematuria, Retention , Other Musculoskeletal: negative: Neck Pain, Shoulder Pain, Arm Pain, Back Pain, Hand Pain, Leg Pain, Foot Pain, Other Skin: negative: Rash, Lesions, Casey, Bruising, Other Neurological: negative: Weakness, Numbness, Incoordination, Change in Speech, Confusion, Seizures, Other - Medications/Allergies Allergies/Adverse Reactions: Allergies Allergy/AdvReac Type Severity Reaction Status Date / Time No Known Allergies Allergy Verified 09/30/17 01:05 Medications: Current Medications Acetaminophen (Tylenol) 650 mg PO Q4H PRN PRN Reason: Headache/Fever or Pain Last Admin: 10/16/17 17:15 Dose: 650 mg Hydrocodone Bitart/Acetaminophen ([place] 5/325) 1 tab PO Q4H PRN PRN Reason: Moderate Pain (4-6) Last Admin: 10/17/17 04:21 Dose: 1 tab Al Hydroxide/Mg Hydroxide (Maalox) 30 ml PO Q6H PRN PRN Reason: Heartburn or Indigestion Last Admin: 10/14/17 17:36 Dose: 30 ml Albuterol/Ipratropium (Duoneb) 3 ml NEB Q4H PRN PRN Reason: SOB &/or Wheezing Alprazolam (Xanax) 0.25 mg PO DAILY [facility] Last Admin: 10/17/17 08:32 Dose: 0.25 mg Apixaban (Eliquis) 2.5 mg PO BID [facility] Last Admin: 10/17/17 08:32 Dose: 2.5 mg Calcium/Vitamin D (Caltrate 600 + Vit D) 1 tab PO DAILY [facility] Last Admin: 10/17/17 08:32 Dose: 1 tab Cholecalciferol (Vitamin D3) 1,000 units PO DAILY [facility] Last Admin: 10/17/17 08:33 Dose: 1,000 units Clonidine (Catapres) 0.1 mg PO Q4H PRN PRN Reason: SBP > 180 Last Admin: 10/14/17 00:36 Dose: 0.1 mg Famotidine (Pepcid) 20 mg SLOW IVP DAILY [facility] Last Admin: 10/17/17 08:33 Dose: 20 mg Ferrous Sulfate (Feosol) 325 mg PO QAM[facility] Last Admin: 10/17/17 08:32 Dose: 325 mg Fluconazole (Diflucan) 100 mg PO DAILY [facility] Last Admin: 10/17/17 08:32 Dose: 100 mg Meropenem 1 gm/ Syringe 20 mls @ 240 mls/hr IVPB Q12HR [facility] Last Admin: 10/17/17 08:31 Dose: 20 mls Sodium Chloride (Normal Saline 0.9%) 1,000 mls @ 75 mls/hr IV .[id number] [facility] Last Admin: 10/17/17 08:33 Dose: 1,000 mls Levothyroxine Sodium (Synthroid) 112 mcg PO 0600 [facility] Last Admin: 10/17/17 06:30 Dose: 112 mcg Levothyroxine Sodium (Synthroid) 25 mcg PO 0600 [facility] Last Admin: 10/17/17 06:30 Dose: 25 mcg Loratadine (Claritin) 10 mg PO DAILY [facility] Last Admin: 10/17/17 08:32 Dose: 10 mg Magnesium Hydroxide (Milk Of Magnesium) 30 ml PO DAILYPRN PRN PRN Reason: Constipation Morphine Sulfate (Ms Contin) 30 mg PO BID PRN PRN Reason: Pain Last Admin: 10/17/17 10:01 Dose: 30 mg Multivitamins (Theragran) 1 tab PO DAILY [facility] Last Admin: 10/17/17 08:33 Dose: 1 tab Ondansetron HCl (Zofran) 4 mg IVP Q6H PRN PRN Reason: Nausea/Vomiting Ropinirole HCl (Requip) 0.5 mg PO QPM [facility] Last Admin: 10/16/17 21:49 Dose: 0.5 mg Senna (Senokot) 2 tab PO HSPRN PRN PRN Reason: Constipation Senna (Senokot) 2 tab PO BID [facility] Last Admin: 10/17/17 08:33 Dose: 2 tab Trazodone HCl (Desyrel) 50 mg PO HS [facility] Last Admin: 10/16/17 21:58 Dose: 50 mg Trospium (Trospium) 20 mg PO DAILY [facility] Last Admin: 10/17/17 08:32 Dose: 20 mg
--- NOTE | 2017-10-17 13:23 | PRG ---
DATE OF SERVICE: 10/17/2017 SUBJECTIVE: Ms. Thapa is doing well. She is back in normal sinus rhythm. She feels much better. OBJECTIVE: VITAL SIGNS: Blood pressure earlier was 102 systolic, but now it is 126 systolic according to the nu rsing aides. LUNGS: Clear. CARDIAC: Normal S1 and S2. ABDOMEN: Soft, nontender. EXTREMITIES: No edema. ASSESSMENT: 1. Atrial arrhythmias, atrial tachycardia, resolved. 2. Urosepsis, improved. PLAN: 1. She will continue the current medical regimen. No changes at this time. 2. She was taken off the amlodipine due to relatively low blood pressure.
[2017-10-17] MEDS: Ondansetron HCl/PF 4 MG/2 ML Vial IVP PRN (18:39)
[2017-10-17] MEDS: traZODone HCl 50 MG TAB PO SCH (20:32)
[2017-10-17] MEDS: rOPINIRole HCl 0.5 MG TAB PO SCH (20:33)
--- NOTE | 2017-10-17 23:57 | CON ---
DATE OF CONSULTATION: 10/17/2017 This is an electrophysiology consultation dictated for Dr. Tae Crawford. REFERRING PHYSICIAN: Dr. Mcmahon. REASON FOR CONSULTATION: Atrial arrhythmias. HISTORY OF PRESENT ILLNESS: This is an 87-year-old patient who is a resident in a halfway. She was sent to the emergency room for evaluation of right flank pain. She also has a history of chroni c respiratory failure and uses 2-3 liters of home O2. She was reportedly having nausea and was febri le, but denied any associated vomiting. HPI is somewhat limited as the patient is not a good histori an. In addition to the above-mentioned symptoms while she was at [facility], she also felt w eak, lightheaded, and had racing heart and was found to be in atrial flutter. In the past, she has u sukhjinder typical atrial flutter ablation/cavotricuspid isthmus ablation with Dr. Valerio on 015 and was also found at that time to be in atrial fibrillation. She has been followed by Dr. Rodney stovall most recently in 06/2017 and was found to be in sinus rhythm at that time, was taking digoxin and m etoprolol for rate control and was maintained on Eliquis for stroke prophylaxis. She recently has cohn d multiple significant problems with urinary tract infections and nephrolithiasis as well as severe s epsis with shock and hypoxic respiratory failure requiring intubation. Now, she is being evaluated b y Urology and had a stent placed to the right ureter on 10/16/2017. PAST MEDICAL HISTORY: 1. Atrial arrhythmias including paroxysmal atrial fibrillation and typical atrial flutter, status po st prior CTI ablation in 2014, on Eliquis for chronic anticoagulation and stroke prophylaxis. 2. Chronic obstructive pulmonary disease. 3. Nephrolithiasis. 4. Recurrent urinary tract infections. 5. Hypertension. 6. Gastroesophageal reflux disease. 7. History of left leg deep venous thrombosis. 8. Hypothyroidism. 9. Deconditioning. PAST SURGICAL HISTORY: Includes appendectomy, hysterectomy, nephrostomy ()placement, cholecyst ectomy, tonsillectomy, total right hip replacement, and total left hip replacement. SOCIAL HISTORY: Remote history of tobacco habituation greater than 10 years ago. Negative for alcoh ol abuse currently. FAMILY HISTORY: Negative for sudden cardiac or coronary artery disease. REVIEW OF SYSTEMS: A 12-point review of systems was conducted as best possible given the patient's l imited ability as a historian and is unremarkable except that listed above in the HPI. HOME MEDICATIONS: Include digoxin 0.125 mg Monday, Monday, Monday; Xanax 0.25 mg daily, amlodipin e 5 mg daily, Eliquis 2.5 mg b.i.d., Catapres 0.1 mg q.4 hours as needed, vitamin D3 daily, Pepcid 20 mg b.i.d., ferrous sulfate 325 mg daily, DuoNeb as directed, levothyroxine 137 mcg daily, Claritin a s needed, metoprolol 50 mg daily, MS Contin 2 tablets b.i.d. p.r.n., multivitamin daily, Requip 0.5 m g q.p.m., Senokot b.i.d., Detrol 2 mg b.i.d., trazodone 50 mg at bedtime. PHYSICAL EXAMINATION: VITAL SIGNS: Most recent vital signs include 98.6 degrees, pulse 94, respirations 16, 97% oxygen sat uration on 2 liters via nasal cannula, blood pressure 132/60. Previously on a Cardizem drip, which w as discontinued due to hypotension on 10/16/2017. GENERAL: The patient is resting comfortably in bed in no acute distress. HEENT: Her pupils are equal, round, reactive, and accommodate to light. EOMs are intact. Sclerae a re anicteric. NECK: Supple without jugular venous distention. LUNGS: Clear to auscultation bilaterally without wheezes, crackles, or rhonchi. Respirations are ev en and unlabored with good bilateral excursion. HEART: Heart rate is regularly regular with a normal S1 and S2. EXTREMITIES: Warm and dry to touch without clubbing, cyanosis, or edema. ABDOMEN: Soft and nontender with normoactive bowel sounds throughout. NEUROLOGIC: Grossly intact and exam is nonfocal. DATABASE: Review of EKG and telemetry strips reveal atypical atrial flutter on 10/16/2017. Currentl y, she is maintaining a normal sinus mechanism with rates well controlled in the 70-80 beats per jan te range. While in atrial flutter, rates varied from 90-110 beats per minute. LABORATORY DATA: Hematology on 10/15/2017: WBC 6.2, hemoglobin 10.3, hematocrit 32.1, platelet coun t is 326. Chemistry on 10/16/2017: Sodium 133, potassium 4.4, chloride 103, carbon dioxide 24, BUN is 13, creatinine is 1.11. IMPRESSION: 1. Paroxysmal atypical flutter, now maintaining sinus rhythm with rates well controlled. 2. History of paroxysmal atrial fibrillation. 3. Renal stones, status post renal stenting. 4. History of normal left ventricular ejection fraction estimated at 50%-55% on 09/09/2017. 5. Oral anticoagulation with Eliquis for stroke prophylaxis given atrial arrhythmias and a history o f deep venous thrombosis. 6. History of typical atrial flutter with prior CTI ablation on 05/01/[address] Chris Valerio. PLAN: The patient is currently maintaining normal sinus rhythm and is recommended to continue the rrent treatment plan with rate control at this time. The patient is a poor candidate for atypical fl utter and atrial fibrillation ablation. Recommendation would be medical management either with rate control or antiarrhythmic therapy if needed should recurrence developed or rates being poorly control led. Dictated by TRINA Curry
[2017-10-18] MEDS: HYDROcodone/Acetaminophen 5/325 mg Tablet PO PRN ×2 (04:54→16:37)
[2017-10-18] MEDS: Levothyroxine Sodium 25 MCG TAB PO SCH (04:55)
[2017-10-18] MEDS: Levothyroxine Sodium 112 MCG TAB PO SCH (04:55)
[2017-10-18 05:32] LABS: Hemoglobin 9.5 g/dL (12.0-16.0); Platelet Count 243 thou/uL (130-400)
[2017-10-18] MEDS: Meropenem 1 GM in Syringe 20 ML IVPB SCH (09:11)
[2017-10-18] MEDS: TROSPIUM 20 MG TABLET PO SCH (09:11)
[2017-10-18] MEDS: Famotidine/PF 20 mg/2ml Vial SLOW IVP SCH (09:11)
[2017-10-18] MEDS: Loratadine 10 MG TAB PO SCH (09:11)
[2017-10-18] MEDS: Multivit, Therapeutic 1 TAB PO SCH (09:11)
[2017-10-18] MEDS: Calcium Carbonate + Vit D 1 TAB PO SCH (09:12)
[2017-10-18] MEDS: Apixaban 5 MG TAB PO SCH ×2 (09:12→20:09)
[2017-10-18] MEDS: Senokot 8.6 MG TAB PO SCH ×2 (09:12→20:09)
[2017-10-18] MEDS: Ferrous Sulfate 325 MG TAB PO SCH (09:12)
[2017-10-18] MEDS: Acetaminophen 325 MG TAB PO PRN (09:12)
[2017-10-18] MEDS: ALPRAZolam 0.25 MG TAB PO SCH (09:12)
[2017-10-18] MEDS: Fluconazole 100 MG TAB PO SCH (09:13)
[2017-10-18] MEDS: Morphine ER 30 MG TAB PO PRN (09:59)
--- NOTE | 2017-10-18 10:10 | PRG ---
DATE OF SERVICE: 10/18/2017 SUBJECTIVE: Ms. Thapa is doing well. She is up and around walking the halls once again. OBJECTIVE: VITAL SIGNS: Her heart rate is 106, sinus tachycardia, and blood pressure 170/80. LUNGS: Clear. CARDIAC: Normal S1 and S2. ABDOMEN: Soft, nontender. EXTREMITIES: No edema. ASSESSMENT: 1. Status post previous atrial flutter ablation, right-sided and now with some recurrent atypical fl utter. Dr. Crawford thought it could have potentially been from the left side. 2. Recent sepsis, improved. 3. Hypertension, now sinus tachycardia. PLAN: 1. She is on apixaban 2.5 mg twice a day. 2. Metoprolol succinate 50 mg a day. 3. I will ask her to see us in the office in 4-6 weeks, to see Ni Garcia, nurse practitioner. Dr. Crawford recommended medical therapy for this patient as opposed to repeat ablation which may be more com plex and potentially left-sided.
[2017-10-18] MEDS ORDERED: ALPRAZolam 0.25 MG TAB PO SCH (13:30)
[2017-10-18] MEDS ORDERED: Cefdinir 300 MG CAP PO SCH ×2 (13:45)
--- NOTE | 2017-10-18 14:49 | PDOC.PN ---
- Subjective Encounter Start Date: 10/18/17 Encounter Start Time: 14:48 Pt seen for followup re: UTI. Denies any chest pain or shortness of breath. - Objective Resuscitation Status: Resuscitation Status FULL:Full Resuscitation MAR Reviewed: Yes Vital Signs & Weight: Vital Signs (12 hours) Temp Pulse Resp BP Pulse Ox 10/18/17 11:29 97.2 F L 82 16 136/63 97 10/18/17 07:23 99.4 F 106 H 18 94 L 10/18/17 07:14 99.4 F 106 H 18 131/62 94 L 10/18/17 03:54 99.0 F 94 16 120/60 97 Weight Weight 126 lb I&O: 10/17/17 10/18/17 10/19/17 06:59 06:59 06:59 Intake Total 1565 2260 Output Total 550 1950 Balance 1015 310 Result Diagrams: 10/18/17 05:08 10/18/17 05:08 EKG Reviewed by me: Yes (Tele: NSR) Phys Exam - Physical Examination Constitutional: NAD HEENT: moist MMs Neck: supple Respiratory: clear to auscultation bilateral Cardiovascular: RRR Gastrointestinal: soft Musculoskeletal: pulses present Neurological: moves all 4 limbs Psychiatric: normal affect Skin: cap refill <2 seconds Dx/Plan (1) Complicated UTI (urinary tract infection) Code(s): N39.0 - URINARY TRACT INFECTION, SITE NOT SPECIFIED Status: Acute Comment: with nephrolithiasis (2) Bilateral ureteral calculi Code(s): N20.1 - CALCULUS OF URETER Status: Chronic Comment: s/p ureteroscopy & lithotripasy and stent placement 10/16/17 (3) HTN (hypertension) Code(s): I10 - ESSENTIAL (PRIMARY) HYPERTENSION Status: Chronic Qualifiers: - Plan continue antibiotics, out of bed/ambulate * . Switch to oral antibiotics. Continue fluconazole. Monitor vital signs, titrate antihypertensives as needed. Likely discharge in 24 hrs. Review of Systems - Review of Systems Respiratory: negative: Cough, Dry, Shortness of Breath, Hemoptysis, SOB with Excertion, Pleuritic Pain, Sputum, Wheezing Cardiovascular: negative: chest pain, palpitations, orthopnea, paroxysmal nocturnal dyspnea, edema, light headedness - Medications/Allergies Allergies/Adverse Reactions: Allergies Allergy/AdvReac Type Severity Reaction Status Date / Time No Known Allergies Allergy Verified 09/30/17 01:05 Medications: Current Medications Acetaminophen (Tylenol) 650 mg PO Q4H PRN PRN Reason: Headache/Fever or Pain Last Admin: 10/18/17 09:12 Dose: 650 mg Hydrocodone Bitart/Acetaminophen ([place] 5/325) 1 tab PO Q4H PRN PRN Reason: Moderate Pain (4-6) Last Admin: 10/18/17 04:54 Dose: 1 tab Al Hydroxide/Mg Hydroxide (Maalox) 30 ml PO Q6H PRN PRN Reason: Heartburn or Indigestion Last Admin: 10/14/17 17:36 Dose: 30 ml Albuterol/Ipratropium (Duoneb) 3 ml NEB Q4H PRN PRN Reason: SOB &/or Wheezing Alprazolam (Xanax) 0.25 mg PO DAILY [facility] Last Admin: 10/18/17 09:12 Dose: 0.25 mg Alprazolam (Xanax) 0.25 mg PO NOW [facility] Stop: 10/18/17 15:00 Last Admin: 10/18/17 13:34 Dose: 0.25 mg Apixaban (Eliquis) 2.5 mg PO BID [facility] Last Admin: 10/18/17 09:12 Dose: 2.5 mg Calcium/Vitamin D (Caltrate 600 + Vit D) 1 tab PO DAILY [facility] Last Admin: 10/18/17 09:12 Dose: 1 tab Cefdinir (Omnicef) 300 mg PO NOW [facility] Stop: 10/18/17 15:00 Last Admin: 10/18/17 14:08 Dose: 300 mg Cefdinir (Omnicef) 300 mg PO Q12HR [facility] Cholecalciferol (Vitamin D3) 1,000 units PO DAILY [facility] Last Admin: 10/18/17 09:11 Dose: 1,000 units Clonidine (Catapres) 0.1 mg PO Q4H PRN PRN Reason: SBP > 180 Last Admin: 10/14/17 00:36 Dose: 0.1 mg Famotidine (Pepcid) 20 mg PO 0900 [facility] Ferrous Sulfate (Feosol) 325 mg PO QAM[facility] Last Admin: 10/18/17 09:12 Dose: 325 mg Fluconazole (Diflucan) 100 mg PO DAILY [facility] Last Admin: 10/18/17 09:13 Dose: 100 mg Levothyroxine Sodium (Synthroid) 112 mcg PO 0600 [facility] Last Admin: 10/18/17 04:55 Dose: 112 mcg Levothyroxine Sodium (Synthroid) 25 mcg PO 0600 [facility] Last Admin: 10/18/17 04:55 Dose: 25 mcg Loratadine (Claritin) 10 mg PO DAILY [facility] Last Admin: 10/18/17 09:11 Dose: 10 mg Magnesium Hydroxide (Milk Of Magnesium) 30 ml PO DAILYPRN PRN PRN Reason: Constipation Metoprolol Succinate (Toprol Xl) 50 mg PO DAILY [facility] Morphine Sulfate (Ms Contin) 30 mg PO BID PRN PRN Reason: Pain Last Admin: 10/18/17 09:59 Dose: 30 mg Multivitamins (Theragran) 1 tab PO DAILY [facility] Last Admin: 10/18/17 09:11 Dose: 1 tab Ondansetron HCl (Zofran) 4 mg IVP Q6H PRN PRN Reason: Nausea/Vomiting Last Admin: 10/17/17 18:39 Dose: 4 mg Ropinirole HCl (Requip) 0.5 mg PO QPM [facility] Last Admin: 10/17/17 20:33 Dose: 0.5 mg Senna (Senokot) 2 tab PO HSPRN PRN PRN Reason: Constipation Senna (Senokot) 2 tab PO BID [facility] Last Admin: 10/18/17 09:12 Dose: 2 tab Sodium Chloride (Flush - Normal Saline) 10 ml IVF Q12HR [facility] Sodium Chloride (Flush - Normal Saline) 10 ml IVF PRN PRN PRN Reason: Saline Flush Trazodone HCl (Desyrel) 50 mg PO HS [facility] Last Admin: 10/17/17 20:32 Dose: 50 mg Trospium (Trospium) 20 mg PO DAILY [facility] Last Admin: 10/18/17 09:11 Dose: 20 mg
--- NOTE | 2017-10-18 17:06 | PDOC.CTH ---
<Paty Hernandez - Last Filed: 10/18/17 16:59> Cardiology Progress Note - Subjective EP progress note Patient doing well and is without new cardiac complaints. She is eager to get home. - Objective Vital Signs Temp Pulse Resp BP Pulse Ox 10/18/17 15:26 98.5 F 78 16 146/79 H 96 10/18/17 11:29 97.2 F L 82 16 136/63 97 10/18/17 07:23 99.4 F 106 H 18 94 L 10/18/17 07:14 99.4 F 106 H 18 131/62 94 L Weight 126 lb 10/17/17 10/18/17 10/19/17 06:59 06:59 06:59 Intake Total 1565 2260 Output Total 550 1950 Balance 1015 310 - Physical Examination General/Neuro: alert & oriented x3, NAD Neck: carotid US brisk, no JVD present Lungs: CTA, unlabored respirations Heart: RRR Abdomen: no HSM, NT/ND - Telemetry Telemetry Rhythm: NSR - Labs Result Diagrams: 10/18/17 05:08 10/18/17 05:08 - Assessment/Plan 1. Atrial arrhythmias-AAD may be required with recurrence or if rates prove difficult to control. Currently in sinus rhythm. Poor PVI candidate. Continue current treatment plan. A. Atypical atrial flutter-spontaneously converted to NSR on 10/16/17 B. Typical atrial flutter s/p CTI ablation in 2014 without recurrence 2. Chronic oral anticoagulation on Eliquis 2.5 mg BID (age>80, weight<133lbs). Continue indefinitely. Could consider left atrial occlusion device if intolerant or blood thinners. We will follow through hospitalization and see as outpatient in 4-6 weeks. <Tae Crawford - Last Filed: 10/18/17 19:11> Cardiology Progress Note - Objective Vital Signs Temp Pulse Resp BP Pulse Ox 10/18/17 15:26 98.5 F 78 16 146/79 H 96 10/18/17 11:29 97.2 F L 82 16 136/63 97 10/18/17 07:23 99.4 F 106 H 18 94 L 10/18/17 07:14 99.4 F 106 H 18 131/62 94 L Weight 126 lb 0310/18/17 10/19/17 06:59 06:59 06:59 Intake Total 1565 2260 960 Output Total 550 1950 840 Balance 1015 310 120 - Labs Result Diagrams: 10/18/17 05:08 10/18/17 05:08 Attending Addendum - Attending Addendum Date/Time: 10/18/17 1910 I personally evaluated the patient and discussed the management with Ms Hernandez. I agree with the History, Examination, Assessment and Plan documented above with any addition or exceptions noted below.
[2017-10-18] MEDS: rOPINIRole HCl 0.5 MG TAB PO SCH (20:09)
[2017-10-18] MEDS: Cefdinir 300 MG CAP PO SCH (20:09)
[2017-10-18] MEDS: traZODone HCl 50 MG TAB PO SCH (20:09)
[2017-10-19] MEDS: Acetaminophen 325 MG TAB PO PRN (04:11)
[2017-10-19] MEDS: Levothyroxine Sodium 25 MCG TAB PO SCH (04:11)
[2017-10-19] MEDS: Levothyroxine Sodium 112 MCG TAB PO SCH (04:11)
[2017-10-19] MEDS: Morphine ER 30 MG TAB PO PRN ×2 (04:12→17:40)
[2017-10-19] MEDS: TROSPIUM 20 MG TABLET PO SCH (08:31)
[2017-10-19] MEDS: Fluconazole 100 MG TAB PO SCH (08:31)
[2017-10-19] MEDS: Calcium Carbonate + Vit D 1 TAB PO SCH (08:32)
[2017-10-19] MEDS: Cefdinir 300 MG CAP PO SCH (08:32)
[2017-10-19] MEDS: Apixaban 5 MG TAB PO SCH ×2 (08:32→20:51)
[2017-10-19] MEDS: ALPRAZolam 0.25 MG TAB PO SCH (08:32)
[2017-10-19] MEDS: Loratadine 10 MG TAB PO SCH (08:32)
[2017-10-19] MEDS: Multivit, Therapeutic 1 TAB PO SCH (08:32)
[2017-10-19] MEDS: Ferrous Sulfate 325 MG TAB PO SCH (08:32)
[2017-10-19] MEDS: Famotidine 20 MG TAB PO SCH (08:32)
[2017-10-19] MEDS: Senokot 8.6 MG TAB PO SCH ×2 (08:32→20:52)
[2017-10-19] MEDS: HYDROcodone/Acetaminophen 5/325 mg Tablet PO PRN ×2 (08:37→13:52)
[2017-10-19] MEDS: Ondansetron HCl/PF 4 MG/2 ML Vial IVP PRN (08:54)
--- NOTE | 2017-10-19 13:35 | PDOC.PN ---
- Subjective Encounter Start Date: 10/19/17 Encounter Start Time: 10:30 Pt seen for followup re; afib/flutter with RVR. Denies chest pain, shortness of breath, fevers or chills. - Objective Resuscitation Status: Resuscitation Status FULL:Full Resuscitation Vital Signs & Weight: Vital Signs (12 hours) Temp Pulse Resp BP Pulse Ox 10/19/17 12:00 98.5 F 77 18 122/59 L 91 L 10/19/17 11:28 98.6 F 71 16 127/59 L 96 10/19/17 08:00 98.1 F 99 16 97 10/19/17 07:56 98.1 F 99 16 129/69 97 10/19/17 05:17 99.9 F H 10/19/17 04:06 100.5 F H 131/82 10/19/17 04:04 101.8 F H 100 18 179/81 H 93 L Weight Weight 126 lb I&O: 10/18/17 10/19/17 10/20/17 06:59 06:59 06:59 Intake Total 2260 1370 Output Total 1950 1340 Balance 310 30 Result Diagrams: 10/18/17 05:08 10/18/17 05:08 EKG Reviewed by me: Yes (Tele: a. flutter/fib) Phys Exam - Physical Examination Constitutional: NAD HEENT: moist MMs Neck: supple Respiratory: clear to auscultation bilateral Cardiovascular: irregular Gastrointestinal: soft Neurological: moves all 4 limbs Psychiatric: normal affect Dx/Plan (1) Atrial flutter Code(s): I48.92 - UNSPECIFIED ATRIAL FLUTTER Status: Acute Comment: EP following, monitor on telemetry. Continue beta selvin, anticoagulation. (2) Bilateral ureteral calculi Code(s): N20.1 - CALCULUS OF URETER Status: Chronic Comment: Had ureteroscopy, lithotripsy and stent placement October 16, 2017 (3) HTN (hypertension) Code(s): I10 - ESSENTIAL (PRIMARY) HYPERTENSION Status: Chronic Qualifiers: Comment: Monitor vital signs, titrate antihypertensives as needed (4) Complicated UTI (urinary tract infection) Code(s): N39.0 - URINARY TRACT INFECTION, SITE NOT SPECIFIED Status: Ruled- out Comment: Urine cultures only show yeast, continue fluconazole, discontinue antibiotics - Plan * . Review of Systems - Review of Systems Respiratory: negative: Cough, Dry, Shortness of Breath, Hemoptysis, SOB with Excertion, Pleuritic Pain, Sputum, Wheezing Cardiovascular: negative: chest pain, palpitations, orthopnea, paroxysmal nocturnal dyspnea, edema, light headedness - Medications/Allergies Allergies/Adverse Reactions: Allergies Allergy/AdvReac Type Severity Reaction Status Date / Time No Known Allergies Allergy Verified 09/30/17 01:05 Medications: Current Medications Acetaminophen (Tylenol) 650 mg PO Q4H PRN PRN Reason: Headache/Fever or Pain Last Admin: 10/19/17 04:11 Dose: 650 mg Hydrocodone Bitart/Acetaminophen ([place] 5/325) 1 tab PO Q4H PRN PRN Reason: Moderate Pain (4-6) Last Admin: 10/19/17 08:37 Dose: 1 tab Al Hydroxide/Mg Hydroxide (Maalox) 30 ml PO Q6H PRN PRN Reason: Heartburn or Indigestion Last Admin: 10/14/17 17:36 Dose: 30 ml Albuterol/Ipratropium (Duoneb) 3 ml NEB Q4H PRN PRN Reason: SOB &/or Wheezing Alprazolam (Xanax) 0.25 mg PO DAILY [facility] Last Admin: 10/19/17 08:32 Dose: 0.25 mg Apixaban (Eliquis) 2.5 mg PO BID [facility] Last Admin: 10/19/17 08:32 Dose: 2.5 mg Calcium/Vitamin D (Caltrate 600 + Vit D) 1 tab PO DAILY [facility] Last Admin: 10/19/17 08:32 Dose: 1 tab Cefdinir (Omnicef) 300 mg PO Q12HR [facility] Last Admin: 10/19/17 08:32 Dose: 300 mg Cholecalciferol (Vitamin D3) 1,000 units PO DAILY [facility] Last Admin: 10/19/17 08:32 Dose: 1,000 units Clonidine (Catapres) 0.1 mg PO Q4H PRN PRN Reason: SBP > 180 Last Admin: 10/14/17 00:36 Dose: 0.1 mg Famotidine (Pepcid) 20 mg PO 0900 [facility] Last Admin: 10/19/17 08:32 Dose: 20 mg Ferrous Sulfate (Feosol) 325 mg PO [facility] Last Admin: 10/19/17 08:32 Dose: 325 mg Fluconazole (Diflucan) 100 mg PO DAILY [facility] Last Admin: 10/19/17 08:31 Dose: 100 mg Levothyroxine Sodium (Synthroid) 112 mcg PO 0600 [facility] Last Admin: 10/19/17 04:11 Dose: 112 mcg Levothyroxine Sodium (Synthroid) 25 mcg PO 0600 [facility] Last Admin: 10/19/17 04:11 Dose: 25 mcg Loratadine (Claritin) 10 mg PO DAILY [facility] Last Admin: 10/19/17 08:32 Dose: 10 mg Magnesium Hydroxide (Milk Of Magnesium) 30 ml PO DAILYPRN PRN PRN Reason: Constipation Metoprolol Succinate (Toprol Xl) 50 mg PO DAILY [facility] Last Admin: 10/19/17 08:32 Dose: 50 mg Morphine Sulfate (Ms Contin) 30 mg PO BID PRN PRN Reason: Pain Last Admin: 10/19/17 04:12 Dose: 30 mg Multivitamins (Theragran) 1 tab PO DAILY [facility] Last Admin: 10/19/17 08:32 Dose: 1 tab Ondansetron HCl (Zofran) 4 mg IVP Q6H PRN PRN Reason: Nausea/Vomiting Last Admin: 10/19/17 08:54 Dose: 4 mg Ropinirole HCl (Requip) 0.5 mg PO QPM [facility] Last Admin: 10/18/17 20:09 Dose: 0.5 mg Senna (Senokot) 2 tab PO HSPRN PRN PRN Reason: Constipation Senna (Senokot) 2 tab PO BID [facility] Last Admin: 10/19/17 08:32 Dose: 2 tab Sodium Chloride (Flush - Normal Saline) 10 ml IVF Q12HR [facility] Last Admin: 10/19/17 08:33 Dose: 10 ml Sodium Chloride (Flush - Normal Saline) 10 ml IVF PRN PRN PRN Reason: Saline Flush Trazodone HCl (Desyrel) 50 mg PO HS [facility] Last Admin: 10/18/17 20:09 Dose: 50 mg Trospium (Trospium) 20 mg PO DAILY [facility] Last Admin: 10/19/17 08:31 Dose: 20 mg
--- NOTE | 2017-10-19 16:58 | PDOC.CTH ---
<Paty Hernandez - Last Filed: 10/19/17 16:56> Cardiology Progress Note - Subjective Patient was doing well overnight until 0400 when she went back into atrial flutter. She felt her heart racing and has associated weakness, nausea, fatigue , and feels poorly. She is still eager to go home but only once arrhythmias are under control. Son is bedside. No chest pain, stroke symptoms, or syncope. - ROS dizziness, lightheadedness, nausea, shortness of breath - Objective Vital Signs Temp Pulse Resp BP Pulse Ox 10/19/17 15:30 98.6 F 70 16 109/58 L 97 10/19/17 12:00 98.5 F 77 18 122/59 L 91 L 10/19/17 11:28 98.6 F 71 16 127/59 L 96 10/19/17 08:00 98.1 F 99 16 97 10/19/17 07:56 98.1 F 99 16 129/69 97 10/19/17 05:17 99.9 F H Weight 126 lb 10/18/17 10/19/17 10/20/17 06:59 06:59 06:59 Intake Total 2260 1370 Output Total 1950 1340 Balance 310 30 - Physical Examination General/Neuro: alert & oriented x3 Neck: carotid US brisk, no JVD present Lungs: unlabored respirations Abdomen: no HSM Extremities: + edema B (1+ BLE) - Labs Result Diagrams: 10/18/17 05:08 10/18/17 05:08 - Assessment/Plan 1. Atrial arrhythmias-Patient currently in atypical flutter with RVR around 0400 with rates in 190-200 range with associated symptoms. Initiating Multaq 400mg PO BID. Poor PVAI candidate. A. Atypical atrial flutter- as above B. Typical atrial flutter s/p CTI ablation in 2014 without recurrence 2. Chronic oral anticoagulation on Eliquis 2.5 mg BID (age>80, weight<133lbs). Continue indefinitely. Could consider left atrial occlusion device if intolerant of blood thinners. <Tae Crawford - Last Filed: 10/19/17 17:13> Cardiology Progress Note - Objective Vital Signs Temp Pulse Resp BP Pulse Ox 10/19/17 15:30 98.6 F 70 16 109/58 L 97 10/19/17 12:00 98.5 F 77 18 122/59 L 91 L 10/19/17 11:28 98.6 F 71 16 127/59 L 96 10/19/17 08:00 98.1 F 99 16 97 10/19/17 07:56 98.1 F 99 16 129/69 97 10/19/17 05:17 99.9 F H Weight 126 lb 10/18/17 10/19/17 10/20/17 06:59 06:59 06:59 Intake Total 2260 1370 Output Total 1950 1340 Balance 310 30 - Labs Result Diagrams: 10/18/17 05:08 10/18/17 05:08 Attending Addendum - Attending Addendum Date/Time: 10/19/17 0334 I personally evaluated the patient and discussed the management with MS Hernandez. I agree with the History, Examination, Assessment and Plan documented above with any addition or exceptions noted below.
[2017-10-19] MEDS ORDERED: Dronedarone HCl 400 MG TAB PO SCH (17:15)
--- NOTE | 2017-10-19 17:29 | EKG ---
Test Reason : POST OP Blood Pressure : / mmHG Vent. Rate : 124 BPM Atrial Rate : 124 BPM P-R Int : 190 ms QRS Dur : 082 ms QT Int : 318 ms P-R-T Axes : 078 013 043 degrees QTc Int : 456 ms Sinus tachycardia Low voltage QRS Cannot rule out Anterior infarct , age undetermined Abnormal ECG When compared with ECG of 29-SEP-2017 20:08, Vent. rate has increased BY [address] Rodri BAKER ([id number]) on 10/19/2017 5:28:58 PM Referred By: CODY Confirmed By:DR. Rodri BAKER
--- NOTE | 2017-10-19 17:32 | EKG ---
Test Reason : Blood Pressure : / mmHG Vent. Rate : 097 BPM Atrial Rate : 214 BPM P-R Int : 000 ms QRS Dur : 078 ms QT Int : 372 ms P-R-T Axes : 000 018 044 degrees QTc Int : 472 ms Atrial flutter with variable A-V block Low voltage QRS Septal infarct (cited on or before 16-OCT-2017) Abnormal ECG When compared with ECG of 16-OCT-2017 13:46, (Unconfirmed) Atrial flutter has replaced Sinus rhythm Questionable change in initial forces of Anterior leads Confirmed by DR. Rodri BAKER ([id number]) on 10/19/2017 5:32:03 PM Referred By: Confirmed By:DR. Rodri BAKER
[2017-10-19] MEDS: Mag-Al 1200 mg/1200 mg/30 ML UDCUP PO PRN (19:35)
[2017-10-19] MEDS: rOPINIRole HCl 0.5 MG TAB PO SCH (20:51)
[2017-10-19] MEDS: traZODone HCl 50 MG TAB PO SCH (20:51)
[2017-10-19] MEDS ORDERED: Famotidine 20 MG TAB PO SCH (21:00)
[2017-10-20] MEDS: Acetaminophen 325 MG TAB PO PRN (04:40)
[2017-10-20] MEDS: Levothyroxine Sodium 25 MCG TAB PO SCH (04:40)
[2017-10-20] MEDS: Ondansetron HCl/PF 4 MG/2 ML Vial IVP PRN (04:40)
[2017-10-20] MEDS: Levothyroxine Sodium 112 MCG TAB PO SCH (04:40)
[2017-10-20 05:09] LABS: Hemoglobin 10.7 g/dL (12.0-16.0); Platelet Count 322 thou/uL (130-400)
[2017-10-20] MEDS: Ferrous Sulfate 325 MG TAB PO SCH (09:35)
[2017-10-20] MEDS: TROSPIUM 20 MG TABLET PO SCH (09:35)
[2017-10-20] MEDS: Dronedarone HCl 400 MG TAB PO SCH ×2 (09:36→17:29)
[2017-10-20] MEDS: Apixaban 5 MG TAB PO SCH ×2 (09:37→20:50)
--- NOTE | 2017-10-20 09:37 | PRG ---
DATE OF SERVICE: 10/20/2017 SUBJECTIVE: Ms. Thapa does not feel well. She is back in atrial flutter. Her rate is not well cont rolled. She has a little bit of nausea, probably from the Multaq. PHYSICAL EXAMINATION: VITAL SIGNS: Her blood pressure 160/70, then 135/60, pulse is 110. LUNGS: Clear. CARDIAC: She is tachycardic. ABDOMEN: Soft and nontender. ASSESSMENT: 1. Recent urinary tract infection. 2. Recurrent atrial flutter. PLAN: Dr. Crawford recommends Multaq and beta blockers, in the long-term may not do well on medications. Another option could be a pacemaker and AV junction ablation. For now, we will continue the lorena t plan.
[2017-10-20] MEDS: Fluconazole 100 MG TAB PO SCH (09:38)
[2017-10-20] MEDS: Senokot 8.6 MG TAB PO SCH ×2 (09:38→20:51)
[2017-10-20] MEDS: Calcium Carbonate + Vit D 1 TAB PO SCH (09:39)
[2017-10-20] MEDS: Loratadine 10 MG TAB PO SCH (09:39)
[2017-10-20] MEDS: Morphine ER 30 MG TAB PO PRN ×2 (09:40→21:00)
[2017-10-20] MEDS: Famotidine 20 MG TAB PO SCH (09:41)
[2017-10-20] MEDS: ALPRAZolam 0.25 MG TAB PO SCH (09:41)
[2017-10-20] MEDS: Multivit, Therapeutic 1 TAB PO SCH (09:42)
--- NOTE | 2017-10-20 10:51 | PRG ---
DATE OF SERVICE: 10/20/2017 SUBJECTIVE: Ms. Thapa does not feel that good this morning, symptoms not clear. She is somewhat of a poor historian. OBJECTIVE: VITAL SIGNS: Blood pressure is 135/60, heart rate 109, respirations 18, temperature 100.6 degrees Fa hrenheit. GENERAL: Alert and oriented woman in no apparent distress. NECK: Supple. Jugular veins not distended. CHEST: Coarse, no crackles. CARDIOVASCULAR: Heart sounds are regular, but tachycardic. No murmur or gallop. ABDOMEN: Benign. Bowel sounds positive. EXTREMITIES: No edema, clubbing or cyanosis. DATABASE: Telemetry strips reviewed reveals atrial flutter to sinus rhythm. Currently some sinus ta chycardia seen. LABORATORY DATA: Hemoglobin 10.7 today. ASSESSMENT AND PLAN: Ms. Thapa is an 87-year-old female with history of atrial arrhythmias. She had a prior CT ablation in 2014, but now returns with a UTI. She did develop an atypical atrial flutter paroxysms. Yesterday, she returned to atrial flutter. Multaq was started, but later her rhythm ret urned to sinus rhythm and sinus tachycardia. Due to her advanced age, recent ureteral stone manipulation, I am advising medical therapy at this po int. Multaq was initiated. So far she seems to be responding well to that. She does have a fever o f unclear origin. Further workup as per primary team. She is on low dose apixaban today. For now the plan is to continue Multaq if tolerated. Hopefully, this will achieve at least rate cont rol, but possibly rhythm control as well. Agree with oral anticoagulants. I have to see her back as an outpatient if felt necessary. Thank you again for allowing me to participate with this patient's care.
--- NOTE | 2017-10-20 14:20 | PDOC.PN ---
- Subjective Encounter Start Date: 10/20/17 Encounter Start Time: 14:18 Pt seen for followup re: atrial flutter. Dines chest pain, reports palpitations. Reports generalized weakness. No nausea or vomiting. - Objective Resuscitation Status: Resuscitation Status FULL:Full Resuscitation MAR Reviewed: Yes Vital Signs & Weight: Vital Signs (12 hours) Temp Pulse Resp BP Pulse Ox 10/20/17 08:00 100.6 F H 109 H 18 95 10/20/17 07:35 100.6 F H 109 H 18 135/60 95 10/20/17 04:32 99 16 167/76 H 94 L Weight Weight 126 lb I&O: 10/19/17 10/20/17 10/21/17 06:59 06:59 06:59 Intake Total 1370 1740 Output Total 1340 400 Balance 30 1340 Result Diagrams: 10/20/17 04:47 10/20/17 04:47 EKG Reviewed by me: Yes (Tele: atrial flutter) Phys Exam - Physical Examination Constitutional: NAD HEENT: moist MMs Neck: supple Respiratory: clear to auscultation bilateral Cardiovascular: RRR Gastrointestinal: soft Musculoskeletal: pulses present Neurological: moves all 4 limbs Psychiatric: normal affect Dx/Plan (1) Atrial flutter Code(s): I48.92 - UNSPECIFIED ATRIAL FLUTTER Status: Acute Comment: EP following. Continue Multaq, apixaban. (2) Bilateral ureteral calculi Code(s): N20.1 - CALCULUS OF URETER Status: Chronic Comment: s/p ureteroscopy, lithotripsy and stent placement during this hospitalization (3) HTN (hypertension) Code(s): I10 - ESSENTIAL (PRIMARY) HYPERTENSION Status: Chronic Qualifiers: Comment: titrate antihypertensives as needed - Plan out of bed/ambulate * . Review of Systems - Review of Systems Constitutional: weakness Cardiovascular: palpitations. negative: chest pain, orthopnea, paroxysmal nocturnal dyspnea, edema, light headedness - Medications/Allergies Allergies/Adverse Reactions: Allergies Allergy/AdvReac Type Severity Reaction Status Date / Time No Known Allergies Allergy Verified 09/30/17 01:05 Medications: Current Medications Acetaminophen (Tylenol) 650 mg PO Q4H PRN PRN Reason: Headache/Fever or Pain Last Admin: 10/20/17 04:40 Dose: 650 mg Hydrocodone Bitart/Acetaminophen ([place] 5/325) 1 tab PO Q4H PRN PRN Reason: Moderate Pain (4-6) Last Admin: 10/19/17 13:52 Dose: 1 tab Al Hydroxide/Mg Hydroxide (Maalox) 30 ml PO Q6H PRN PRN Reason: Heartburn or Indigestion Last Admin: 10/19/17 19:35 Dose: 30 ml Albuterol/Ipratropium (Duoneb) 3 ml NEB Q4H PRN PRN Reason: SOB &/or Wheezing Alprazolam (Xanax) 0.25 mg PO DAILY [facility] Last Admin: 10/20/17 09:41 Dose: 0.25 mg Apixaban (Eliquis) 2.5 mg PO BID [facility] Last Admin: 10/20/17 09:37 Dose: 2.5 mg Calcium/Vitamin D (Caltrate 600 + Vit D) 1 tab PO DAILY [facility] Last Admin: 10/20/17 09:39 Dose: 1 tab Cholecalciferol (Vitamin D3) 1,000 units PO DAILY [facility] Last Admin: 10/20/17 09:39 Dose: 1,000 units Clonidine (Catapres) 0.1 mg PO Q4H PRN PRN Reason: SBP > 180 Last Admin: 10/14/17 00:36 Dose: 0.1 mg Dronedarone (Multaq) 400 mg PO BID[facility] Last Admin: 10/20/17 09:36 Dose: 400 mg Famotidine (Pepcid) 20 mg PO 0900 [facility] Last Admin: 10/20/17 09:41 Dose: 20 mg Ferrous Sulfate (Feosol) 325 mg PO QAM-[facility] Last Admin: 10/20/17 09:35 Dose: 325 mg Fluconazole (Diflucan) 100 mg PO DAILY [facility] Last Admin: 10/20/17 09:38 Dose: 100 mg Levothyroxine Sodium (Synthroid) 112 mcg PO 0600 [facility] Last Admin: 10/20/17 04:40 Dose: 112 mcg Levothyroxine Sodium (Synthroid) 25 mcg PO 0600 [facility] Last Admin: 10/20/17 04:40 Dose: 25 mcg Loratadine (Claritin) 10 mg PO DAILY [facility] Last Admin: 10/20/17 09:39 Dose: 10 mg Magnesium Hydroxide (Milk Of Magnesium) 30 ml PO DAILYPRN PRN PRN Reason: Constipation Metoprolol Succinate (Toprol Xl) 50 mg PO DAILY [facility] Last Admin: 10/20/17 09:42 Dose: 50 mg Morphine Sulfate (Ms Contin) 30 mg PO BID PRN PRN Reason: Pain Last Admin: 10/20/17 09:40 Dose: 30 mg Multivitamins (Theragran) 1 tab PO DAILY [facility] Last Admin: 10/20/17 09:42 Dose: 1 tab Ondansetron HCl (Zofran) 4 mg IVP Q6H PRN PRN Reason: Nausea/Vomiting Last Admin: 10/20/17 04:40 Dose: 4 mg Pantoprazole Sodium (Protonix) 40 mg PO DAILY [facility] Last Admin: 10/20/17 09:41 Dose: 40 mg Ropinirole HCl (Requip) 0.5 mg PO QPM [facility] Last Admin: 10/19/17 20:51 Dose: 0.5 mg Senna (Senokot) 2 tab PO HSPRN PRN PRN Reason: Constipation Senna (Senokot) 2 tab PO BID [facility] Last Admin: 10/20/17 09:38 Dose: 2 tab Sodium Chloride (Flush - Normal Saline) 10 ml IVF Q12HR [facility] Last Admin: 10/20/17 09:43 Dose: 10 ml Sodium Chloride (Flush - Normal Saline) 10 ml IVF PRN PRN PRN Reason: Saline Flush Trazodone HCl (Desyrel) 50 mg PO HS [facility] Last Admin: 10/19/17 20:51 Dose: 50 mg Trospium (Trospium) 20 mg PO DAILY [facility] Last Admin: 10/20/17 09:35 Dose: 20 mg
[2017-10-20] MEDS: HYDROcodone/Acetaminophen 5/325 mg Tablet PO PRN (17:29)
[2017-10-20] MEDS: traZODone HCl 50 MG TAB PO SCH (20:52)
[2017-10-20] MEDS: rOPINIRole HCl 0.5 MG TAB PO SCH (20:52)
[2017-10-21] MEDS: Levothyroxine Sodium 25 MCG TAB PO SCH (05:15)
[2017-10-21] MEDS: Levothyroxine Sodium 112 MCG TAB PO SCH (05:15)
[2017-10-21] MEDS: Dronedarone HCl 400 MG TAB PO SCH ×2 (08:46→17:31)
[2017-10-21] MEDS: Apixaban 5 MG TAB PO SCH ×2 (08:46→21:44)
[2017-10-21] MEDS: Ferrous Sulfate 325 MG TAB PO SCH (08:46)
[2017-10-21] MEDS: ALPRAZolam 0.25 MG TAB PO SCH (08:47)
[2017-10-21] MEDS: Famotidine 20 MG TAB PO SCH (08:47)
[2017-10-21] MEDS: Calcium Carbonate + Vit D 1 TAB PO SCH (08:47)
[2017-10-21] MEDS: Senokot 8.6 MG TAB PO SCH ×2 (08:48→21:45)
[2017-10-21] MEDS: Multivit, Therapeutic 1 TAB PO SCH (08:48)
[2017-10-21] MEDS: Loratadine 10 MG TAB PO SCH (08:48)
[2017-10-21] MEDS: TROSPIUM 20 MG TABLET PO SCH (08:48)
[2017-10-21] MEDS: Fluconazole 100 MG TAB PO SCH (08:48)
[2017-10-21] MEDS: HYDROcodone/Acetaminophen 5/325 mg Tablet PO PRN (08:49)
[2017-10-21] MEDS: Morphine ER 30 MG TAB PO PRN (13:30)
--- NOTE | 2017-10-21 13:50 | PDOC.PN ---
- Subjective Encounter Start Date: 10/21/17 Encounter Start Time: 08:00 Pt seen for followup re: atrial flutter. Sleepy, denies any complaints. - Objective Resuscitation Status: Resuscitation Status FULL:Full Resuscitation MAR Reviewed: Yes Vital Signs & Weight: Vital Signs (12 hours) Temp Pulse Resp BP Pulse Ox 10/21/17 12:50 98.1 F 73 19 100/54 L 98 10/21/17 08:50 88 108/55 L 10/21/17 07:50 98.3 F 88 18 94 L 10/21/17 07:36 98.3 F 88 18 124/60 94 L 10/21/17 07:20 97 10/21/17 04:00 97.3 F L 80 18 122/59 L 95 Weight Weight 126 lb I&O: 10/20/17 10/21/17 10/22/17 06:59 06:59 07:59 Intake Total 1740 120 Output Total 400 Balance 1340 120 Result Diagrams: 10/20/17 04:47 10/20/17 04:47 EKG Reviewed by me: Yes (Tele: atrial flutter) Phys Exam - Physical Examination Constitutional: NAD HEENT: moist MMs Neck: supple Respiratory: clear to auscultation bilateral Cardiovascular: RRR Gastrointestinal: soft Neurological: moves all 4 limbs Psychiatric: normal affect Dx/Plan (1) Atrial flutter Code(s): I48.92 - UNSPECIFIED ATRIAL FLUTTER Status: Acute Comment: On apixaban and Multaq (2) Bilateral ureteral calculi Code(s): N20.1 - CALCULUS OF URETER Status: Chronic Comment: s/p ureteroscopy, lithotripsy and stent placement 10/16/2017 (3) HTN (hypertension) Code(s): I10 - ESSENTIAL (PRIMARY) HYPERTENSION Status: Chronic Qualifiers: Comment: Monitor vital signs, titrate antihypertensives as needed - Plan out of bed/ambulate * . Review of Systems - Review of Systems Constitutional: negative: fever, chills, sweats, weakness, malaise Cardiovascular: negative: chest pain, palpitations, orthopnea, paroxysmal nocturnal dyspnea, edema, light headedness Gastrointestinal: negative: Nausea, Vomiting, Abdominal Pain, Diarrhea, Constipation, Melena, Hematochezia, Other - Medications/Allergies Allergies/Adverse Reactions: Allergies Allergy/AdvReac Type Severity Reaction Status Date / Time No Known Allergies Allergy Verified 09/30/17 01:05 Medications: Current Medications Acetaminophen (Tylenol) 650 mg PO Q4H PRN PRN Reason: Headache/Fever or Pain Last Admin: 10/20/17 04:40 Dose: 650 mg Hydrocodone Bitart/Acetaminophen ([place] 5/325) 1 tab PO Q4H PRN PRN Reason: Moderate Pain (4-6) Last Admin: 10/21/17 08:49 Dose: 1 tab Al Hydroxide/Mg Hydroxide (Maalox) 30 ml PO Q6H PRN PRN Reason: Heartburn or Indigestion Last Admin: 10/19/17 19:35 Dose: 30 ml Albuterol/Ipratropium (Duoneb) 3 ml NEB Q4H PRN PRN Reason: SOB &/or Wheezing Alprazolam (Xanax) 0.25 mg PO DAILY [facility] Last Admin: 10/21/17 08:47 Dose: 0.25 mg Apixaban (Eliquis) 2.5 mg PO BID [facility] Last Admin: 10/21/17 08:46 Dose: 2.5 mg Calcium/Vitamin D (Caltrate 600 + Vit D) 1 tab PO DAILY [facility] Last Admin: 10/21/17 08:47 Dose: 1 tab Cholecalciferol (Vitamin D3) 1,000 units PO DAILY [facility] Last Admin: 10/21/17 08:47 Dose: 1,000 units Clonidine (Catapres) 0.1 mg PO Q4H PRN PRN Reason: SBP > 180 Last Admin: 10/14/17 00:36 Dose: 0.1 mg Dronedarone (Multaq) 400 mg PO BID-[facility] Last Admin: 10/21/17 08:46 Dose: 400 mg Famotidine (Pepcid) 20 mg PO 0900 [facility] Last Admin: 10/21/17 08:47 Dose: 20 mg Ferrous Sulfate (Feosol) 325 mg PO QAM-[facility] Last Admin: 10/21/17 08:46 Dose: 325 mg Fluconazole (Diflucan) 100 mg PO DAILY [facility] Last Admin: 10/21/17 08:48 Dose: 100 mg Levothyroxine Sodium (Synthroid) 112 mcg PO 0600 [facility] Last Admin: 10/21/17 05:15 Dose: 112 mcg Levothyroxine Sodium (Synthroid) 25 mcg PO 0600 [facility] Last Admin: 10/21/17 05:15 Dose: 25 mcg Loratadine (Claritin) 10 mg PO DAILY [facility] Last Admin: 10/21/17 08:48 Dose: 10 mg Magnesium Hydroxide (Milk Of Magnesium) 30 ml PO DAILYPRN PRN PRN Reason: Constipation Metoprolol Succinate (Toprol Xl) 50 mg PO DAILY [facility] Last Admin: 10/21/17 08:48 Dose: 50 mg Morphine Sulfate (Ms Contin) 30 mg PO BID PRN PRN Reason: Pain Last Admin: 10/21/17 13:30 Dose: 30 mg Multivitamins (Theragran) 1 tab PO DAILY [facility] Last Admin: 10/21/17 08:48 Dose: 1 tab Ondansetron HCl (Zofran) 4 mg IVP Q6H PRN PRN Reason: Nausea/Vomiting Last Admin: 10/20/17 04:40 Dose: 4 mg Pantoprazole Sodium (Protonix) 40 mg PO DAILY [facility] Last Admin: 10/21/17 08:48 Dose: 40 mg Ropinirole HCl (Requip) 0.5 mg PO QPM [facility] Last Admin: 10/20/17 20:52 Dose: 0.5 mg Senna (Senokot) 2 tab PO HSPRN PRN PRN Reason: Constipation Senna (Senokot) 2 tab PO BID [facility] Last Admin: 10/21/17 08:48 Dose: 2 tab Sodium Chloride (Flush - Normal Saline) 10 ml IVF Q12HR [facility] Last Admin: 10/21/17 08:48 Dose: 10 ml Sodium Chloride (Flush - Normal Saline) 10 ml IVF PRN PRN PRN Reason: Saline Flush Trazodone HCl (Desyrel) 50 mg PO HS [facility] Last Admin: 10/20/17 20:52 Dose: 50 mg Trospium (Trospium) 20 mg PO DAILY [facility] Last Admin: 10/21/17 08:48 Dose: 20 mg
[2017-10-21] MEDS: rOPINIRole HCl 0.5 MG TAB PO SCH (21:44)
[2017-10-21] MEDS: Acetaminophen 325 MG TAB PO PRN (21:45)
[2017-10-21] MEDS: traZODone HCl 50 MG TAB PO SCH (21:45)
[2017-10-22] MEDS: Levothyroxine Sodium 112 MCG TAB PO SCH (05:38)
[2017-10-22] MEDS: Levothyroxine Sodium 25 MCG TAB PO SCH (05:38)
[2017-10-22 05:43] LABS: Hemoglobin 8.8 g/dL (12.0-16.0); Platelet Count 323 thou/uL (130-400)
[2017-10-22] MEDS: Apixaban 5 MG TAB PO SCH ×2 (09:09→21:24)
[2017-10-22] MEDS: Ferrous Sulfate 325 MG TAB PO SCH (09:09)
[2017-10-22] MEDS: Dronedarone HCl 400 MG TAB PO SCH ×2 (09:09→16:42)
[2017-10-22] MEDS: TROSPIUM 20 MG TABLET PO SCH (09:10)
[2017-10-22] MEDS: Famotidine 20 MG TAB PO SCH (09:10)
[2017-10-22] MEDS: Fluconazole 100 MG TAB PO SCH (09:10)
[2017-10-22] MEDS: Multivit, Therapeutic 1 TAB PO SCH (09:10)
[2017-10-22] MEDS: ALPRAZolam 0.25 MG TAB PO SCH (09:10)
[2017-10-22] MEDS: Loratadine 10 MG TAB PO SCH (09:10)
[2017-10-22] MEDS: HYDROcodone/Acetaminophen 5/325 mg Tablet PO PRN ×2 (09:10→21:26)
[2017-10-22] MEDS: Calcium Carbonate + Vit D 1 TAB PO SCH (09:10)
[2017-10-22] MEDS: Senokot 8.6 MG TAB PO SCH ×2 (09:10→21:25)
--- NOTE | 2017-10-22 14:21 | PDOC.PN ---
- Subjective Encounter Start Date: 10/22/17 Encounter Start Time: 13:00 Patient is seen today, Alert and oriented. No other concenr snoted. She is waiting for SNF placement. - Objective Resuscitation Status: Resuscitation Status FULL:Full Resuscitation MAR Reviewed: Yes Vital Signs & Weight: Vital Signs (12 hours) Temp Pulse Resp BP Pulse Ox 10/22/17 08:00 97.9 F 70 19 95 10/22/17 07:32 97.9 F 70 19 109/53 L 96 10/22/17 04:30 96 10/22/17 04:00 97.8 F 71 16 117/59 L 96 Weight Weight 128 lb 12.8 oz I&O: 10/21/17 10/22/17 10/23/17 05:59 06:59 06:59 Intake Total Balance Result Diagrams: 10/22/17 05:00 10/22/17 05:00 Radiology Reviewed by me: Yes Phys Exam - Physical Examination HEENT: PERRLA, moist MMs Neck: no nodes, no JVD Respiratory: no wheezing, no rales Cardiovascular: RRR, no significant murmur Gastrointestinal: soft, non-tender Musculoskeletal: no edema, pulses present Neurological: non-focal, normal sensation Lymphatic: no nodes Dx/Plan (1) Atrial flutter Code(s): I48.92 - UNSPECIFIED ATRIAL FLUTTER Status: Acute Comment: On apixaban and Multaq (2) Bilateral ureteral calculi Code(s): N20.1 - CALCULUS OF URETER Status: Chronic Comment: s/p ureteroscopy, lithotripsy and stent placement 10/16/2017 (3) Hypotension due to drugs Status: Acute Comment: resolved (4) Afib Code(s): I48.91 - UNSPECIFIED ATRIAL FIBRILLATION Status: Chronic Qualifiers: Atrial fibrillation type: paroxysmal Qualified Code(s): I48.0 - Paroxysmal atrial fibrillation (5) CKD (chronic kidney disease) stage 3, GFR 30-59 ml/min Status: Chronic Comment: stbale renal fucntions. (6) Complicated UTI (urinary tract infection) Code(s): N39.0 - URINARY TRACT INFECTION, SITE NOT SPECIFIED Status: Ruled- out Comment: Urine cultures only show yeast, continue fluconazole, discontinue antibiotics - Plan cont current plan of care, PT/OT, social service technician, respiratory therapy, incentive spirometry, out of bed/ambulate, DVT proph w/lovenox * . - Discharge Day Encounter end time: 13:35 Review of Systems - Review of Systems Constitutional: negative: fever, chills, sweats, weakness, malaise, other Eyes: negative: Pain, Vision Change, Conjunctivae Inflammation, Eyelid Inflammation, Redness, Other ENT: negative: Ear Pain, Ear Discharge, Nose Pain, Nose Discharge, Nose Congestion, Mouth Pain, Mouth Swelling, Throat Pain, Throat Swelling, Other Respiratory: negative: Cough, Dry, Shortness of Breath, Hemoptysis, SOB with Excertion, Pleuritic Pain, Sputum, Wheezing Cardiovascular: negative: chest pain, palpitations, orthopnea, paroxysmal nocturnal dyspnea, edema, light headedness, other Gastrointestinal: negative: Nausea, Vomiting, Abdominal Pain, Diarrhea, Constipation, Melena, Hematochezia, Other Musculoskeletal: negative: Neck Pain, Shoulder Pain, Arm Pain, Back Pain, Hand Pain, Leg Pain, Foot Pain, Other - Medications/Allergies Allergies/Adverse Reactions: Allergies Allergy/AdvReac Type Severity Reaction Status Date / Time No Known Allergies Allergy Verified 09/30/17 01:05 Medications: Current Medications Acetaminophen (Tylenol) 650 mg PO Q4H PRN PRN Reason: Headache/Fever or Pain Last Admin: 10/21/17 21:45 Dose: 650 mg Hydrocodone Bitart/Acetaminophen ([place] 5/325) 1 tab PO Q4H PRN PRN Reason: Moderate Pain (4-6) Last Admin: 10/22/17 09:10 Dose: 1 tab Al Hydroxide/Mg Hydroxide (Maalox) 30 ml PO Q6H PRN PRN Reason: Heartburn or Indigestion Last Admin: 10/19/17 19:35 Dose: 30 ml Albuterol/Ipratropium (Duoneb) 3 ml NEB Q4H PRN PRN Reason: SOB &/or Wheezing Alprazolam (Xanax) 0.25 mg PO DAILY [facility] Last Admin: 10/22/17 09:10 Dose: 0.25 mg Apixaban (Eliquis) 2.5 mg PO BID [facility] Last Admin: 10/22/17 09:09 Dose: 2.5 mg Calcium/Vitamin D (Caltrate 600 + Vit D) 1 tab PO DAILY [facility] Last Admin: 10/22/17 09:10 Dose: 1 tab Cholecalciferol (Vitamin D3) 1,000 units PO DAILY [facility] Last Admin: 10/22/17 09:10 Dose: 1,000 units Clonidine (Catapres) 0.1 mg PO Q4H PRN PRN Reason: SBP > 180 Last Admin: 10/14/17 00:36 Dose: 0.1 mg Dronedarone (Multaq) 400 mg PO BID-[facility] Last Admin: 10/22/17 09:09 Dose: 400 mg Famotidine (Pepcid) 20 mg PO 0900 [facility] Last Admin: 10/22/17 09:10 Dose: 20 mg Ferrous Sulfate (Feosol) 325 mg PO QAM-[facility] Last Admin: 10/22/17 09:09 Dose: 325 mg Fluconazole (Diflucan) 100 mg PO DAILY [facility] Last Admin: 10/22/17 09:10 Dose: 100 mg Levothyroxine Sodium (Synthroid) 112 mcg PO 0600 [facility] Last Admin: 10/22/17 05:38 Dose: 112 mcg Levothyroxine Sodium (Synthroid) 25 mcg PO 0600 [facility] Last Admin: 10/22/17 05:38 Dose: 25 mcg Loratadine (Claritin) 10 mg PO DAILY [facility] Last Admin: 10/22/17 09:10 Dose: 10 mg Magnesium Hydroxide (Milk Of Magnesium) 30 ml PO DAILYPRN PRN PRN Reason: Constipation Metoprolol Succinate (Toprol Xl) 50 mg PO DAILY [facility] Last Admin: 10/22/17 09:10 Dose: 50 mg Morphine Sulfate (Ms Contin) 30 mg PO BID PRN PRN Reason: Pain Last Admin: 10/21/17 13:30 Dose: 30 mg Multivitamins (Theragran) 1 tab PO DAILY [facility] Last Admin: 10/22/17 09:10 Dose: 1 tab Ondansetron HCl (Zofran) 4 mg IVP Q6H PRN PRN Reason: Nausea/Vomiting Last Admin: 10/20/17 04:40 Dose: 4 mg Pantoprazole Sodium (Protonix) 40 mg PO DAILY [facility] Last Admin: 10/22/17 09:10 Dose: 40 mg Ropinirole HCl (Requip) 0.5 mg PO QPM [facility] Last Admin: 10/21/17 21:44 Dose: 0.5 mg Senna (Senokot) 2 tab PO HSPRN PRN PRN Reason: Constipation Senna (Senokot) 2 tab PO BID [facility] Last Admin: 10/22/17 09:10 Dose: 2 tab Sodium Chloride (Flush - Normal Saline) 10 ml IVF Q12HR [facility] Last Admin: 10/22/17 09:11 Dose: 10 ml Sodium Chloride (Flush - Normal Saline) 10 ml IVF PRN PRN PRN Reason: Saline Flush Trazodone HCl (Desyrel) 50 mg PO HS [facility] Last Admin: 10/21/17 21:45 Dose: 50 mg Trospium (Trospium) 20 mg PO DAILY [facility] Last Admin: 10/22/17 09:10 Dose: 20 mg
[2017-10-22] MEDS: Morphine ER 30 MG TAB PO PRN (17:58)
[2017-10-22] MEDS: rOPINIRole HCl 0.5 MG TAB PO SCH (21:24)
[2017-10-22] MEDS: traZODone HCl 50 MG TAB PO SCH (22:41)
[2017-10-23] MEDS: Levothyroxine Sodium 112 MCG TAB PO SCH (05:43)
[2017-10-23] MEDS: Levothyroxine Sodium 25 MCG TAB PO SCH (05:43)
[2017-10-23 06:03] LABS: Anion Gap 12 mmol/L (10-20); BUN (Urea Nitrogen) 21 mg/dL (9.8-20.1); Calc. Creatinine Clearance 18 mL/min (70-130); Carbon Dioxide 27 mmol/L (23-31); Chloride 99 mmol/L (98-107); Estimated GFR-MDRD 22; Glucose 84 mg/dL (83-110); Potassium 4.8 mmol/L (3.5-5.1); Sodium 133 mmol/L (136-145)
[2017-10-23] MEDS: HYDROcodone/Acetaminophen 5/325 mg Tablet PO PRN ×2 (06:31→16:26)
--- NOTE | 2017-10-23 08:32 | PDOC.PN ---
- Subjective Encounter Start Date: 10/23/17 Encounter Start Time: 09:00 Subjective: Patient with some chronic right abd pain. No other complaints. Some -: hematuria earlier, but none for 2 days. Dark stools since started iron, -: but no blood in BM. - Objective Resuscitation Status: Resuscitation Status FULL:Full Resuscitation MAR Reviewed: Yes Vital Signs & Weight: Vital Signs (12 hours) Temp Pulse Resp BP Pulse Ox 10/23/17 07:47 98.2 F 78 19 129/67 95 10/23/17 04:00 98.1 F 73 14 127/61 93 L 10/22/17 23:45 98.6 F 68 16 130/66 95 Weight Weight 127 lb 11.2 oz I&O: 10/22/17 10/23/17 10/24/17 06:59 06:59 06:59 Intake Total 1600 Balance 1600 Result Diagrams: 10/23/17 05:25 10/23/17 05:25 Phys Exam - Physical Examination Constitutional: NAD HEENT: moist MMs Respiratory: no wheezing, no rales, no rhonchi Cardiovascular: RRR Gastrointestinal: soft, positive bowel sounds Neurological: non-focal, moves all 4 limbs Psychiatric: normal affect Dx/Plan (1) Atrial flutter Code(s): I48.92 - UNSPECIFIED ATRIAL FLUTTER Status: Acute Comment: On apixaban and Multaq (2) Acute unilateral obstructive uropathy Code(s): N13.9 - OBSTRUCTIVE AND REFLUX UROPATHY, UNSPECIFIED Status: Acute Comment: PT had Right ureteral double J stent, Will [facility] monitor. urology following, good urine output now. (3) Chronic renal failure Status: Acute Comment: Creatinine continuing to climb, will consult nephrology (4) Hydronephrosis, right Code(s): N13.30 - UNSPECIFIED HYDRONEPHROSIS Status: Acute Comment: continued improvement of renal function, Cr down to 1.67 today , continue to Monitor. (5) Complicated UTI (urinary tract infection) Code(s): N39.0 - URINARY TRACT INFECTION, SITE NOT SPECIFIED Status: Ruled- out Comment: Urine cultures only show yeast, continue fluconazole, discontinue antibiotics (6) Anemia due to blood loss, acute Code(s): D62 - ACUTE POSTHEMORRHAGIC ANEMIA Status: Acute Comment: Patient on blood thinners, H/H dropped over past 2 days. Will recheck H/H today. Check hemoccult stools. Discuss with cardiology. - Plan cont current plan of care, PT/OT * . - Discharge Day Encounter end time: 09:20
[2017-10-23 09:21] LABS: Hemoglobin 9.2 g/dL (12.0-16.0)
[2017-10-23] MEDS: Morphine ER 30 MG TAB PO PRN (09:21)
[2017-10-23] MEDS: TROSPIUM 20 MG TABLET PO SCH (09:21)
[2017-10-23] MEDS: Famotidine 20 MG TAB PO SCH (09:22)
[2017-10-23] MEDS: Fluconazole 100 MG TAB PO SCH (09:22)
[2017-10-23] MEDS: Dronedarone HCl 400 MG TAB PO SCH (09:22)
[2017-10-23] MEDS: Senokot 8.6 MG TAB PO SCH ×2 (09:22→20:56)
[2017-10-23] MEDS: ALPRAZolam 0.25 MG TAB PO SCH (09:22)
[2017-10-23] MEDS: Multivit, Therapeutic 1 TAB PO SCH (09:22)
[2017-10-23] MEDS: Calcium Carbonate + Vit D 1 TAB PO SCH (09:22)
[2017-10-23] MEDS: Loratadine 10 MG TAB PO SCH (09:22)
[2017-10-23] MEDS: Ferrous Sulfate 325 MG TAB PO SCH (09:23)
[2017-10-23] MEDS ORDERED: Sodium Chloride 0.9% 500 ML IV SCH (09:30)
[2017-10-23] MEDS: Apixaban 5 MG TAB PO SCH (09:44)
--- NOTE | 2017-10-23 10:08 | PRG ---
DATE OF SERVICE: 10/23/2017 SUBJECTIVE: Ms. Thapa continues to have intermittent atrial tachycardia and also some bradycardia. Heart pauses up to 2.7 seconds. No chest pain or pressure. OBJECTIVE: VITAL SIGNS: Blood pressure 129/67, pulse 78 and regular. LUNGS: Clear. CARDIAC: Normal S1 and S2. ABDOMEN: Soft, nontender. EXTREMITIES: There is no edema. ASSESSMENT: 1. Atrial tachycardia. 2. Previous atrial flutter ablation. 3. Poor candidate for repeat ablation per Dr. Crawford. 4. Some evidence of tachycardia-bradycardia syndrome. PLAN: 1. Stop metoprolol. 2. Observe overnight. 3. Also, she is becoming progressively anemic. We will stop apixaban at this time. 4. Renal function is worsened. Creatinine is 2.11. We will give intravenous fluid. 5. Reassess tomorrow. 6. Ultimately may need a pacemaker insertion in order to give her the medicines needed to control th e rapid rates. Ultimately may even need AV junction ablation if she cannot tolerate the medicines fo r the rapid rates.
--- NOTE | 2017-10-23 10:57 | PDOC.CTH ---
<Paty Hernandez - Last Filed: 10/23/17 11:01> Cardiology Progress Note - Subjective EP Progress note Patient continues to experience fatigue and feel run down. Denies heart racing, palpitations, chest pain/pressure, dizziness, or syncope. Denies stroke or stroke like symptoms. - Objective Vital Signs Temp Pulse Resp BP Pulse Ox 10/23/17 07:47 98.2 F 78 19 129/67 95 10/23/17 04:00 98.1 F 73 14 127/61 93 L 10/22/17 23:45 98.6 F 68 16 130/66 95 Weight 127 lb 11.2 oz 10/22/17 10/23/17 10/24/17 06:59 06:59 06:59 Intake Total 1600 Balance 1600 - Physical Examination General/Neuro: alert & oriented x3, NAD Neck: carotid US brisk, no JVD present Lungs: CTA, unlabored respirations Heart: RRR (NSR vs A. tach (A-150, V-75)) Abdomen: no HSM, NT/ND Other PE findings: non focal - Telemetry Telemetry Rhythm: NSR vs ATach (A~150,V~75) - Labs Result Diagrams: 10/23/17 05:25 10/23/17 05:25 - Assessment/Plan 1. Atrial arrhythmias-Patient currently having paroxysmal atrial tachycardia ( atrial rate ~150, ventricular rate ~75). Poor PVI/left atrial ablation candidate. A. Atrial flutter s/p CTI ablation in 2014 without recurrence, atypical flutter this hospitalization. B. AAD- Multaq 400mg PO BID was initiated last week but not effectively maintaining NSR. Limited options given renal function. Will discontinue Multaq in favor of Amiodarone 200mg BID. Cardiology stopped metoprolol in the presence of bradycardia in 50's overnight. Bradycardia may persist with initiation of Amiodarone, thus the gentle dosing. 2. Chronic oral anticoagulation on hold. New acute drop in H/H and OAC stopped. High risk for embolic event given paroxysmal atrial arrhythmias. Could consider left atrial occlusion device in future given recent bleed while on OAC. 3. 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 Metoprolol stopped to prevent additional episodes of bradycadia. Associated symptom of fatigue. Patient also having pauses up to 2.7 seconds, mostly in the setting of converting from AT to NSR. Continues to monitor. Agree with cardiology that patient might benefit from PPM insertion. 4. Chronic renal failure- nephrology consulted as creatinine continues to climb <Tae Crawford - Last Filed: 10/31/17 16:41> Cardiology Progress Note - Objective Admit Weight 126 lb Weight 125 lb 6.4 oz - Labs Result Diagrams: 10/26/17 04:44 10/26/17 04:44 Attending Addendum - Attending Addendum Date/Time: 10/31/17 [id number] I agree with the assessment and Plan documented above.
--- NOTE | 2017-10-23 11:24 | CON ---
DATE OF CONSULTATION: 10/23/2017 REASON FOR CONSULTATION: Elevated creatinine. HISTORY OF PRESENT ILLNESS: This is a very pleasant 87-year-old female with a history of hydronephro sis and a baseline creatinine of 1.1 on 10/15/2017 which increased to 2.1 today. I was consulted. T he patient did not receive any nephrotoxic medication. Denied any nausea, vomiting, or chest pain. PAST MEDICAL HISTORY: Hypertension, COPD, lupus, anemia, GERD, osteoporosis, hypothyroidism, chronic low back pain, history of depression, history for a renal stent placement, history of nephrolithiasi s. SOCIAL HISTORY: No alcohol or drug use. HOME MEDICATIONS: List reviewed. HOSPITAL MEDICATIONS: Reviewed. ALLERGIES: Reviewed. REVIEW OF SYSTEMS: Fifteen 12-point review of systems was performed and negative except for positive s note above. GENERAL: Weakness- HEAD: Headache- NECK: No swelling or lumps. NOSE: No epistaxis or discharge. EYES: No diplopia or pain. RESPIRATORY: Dyspnea- CARDIOVASCULAR: Chest pain- GASTROINTESTINAL: Nausea- /GEOGRAPHY INSTRUCTOR: Hematuria- MUSCULOSKELETAL: No joint pain. NEUROPSYCHIATIC SYSTEMS: No suicidal ideation. No ideation. SKIN: Denies any rash or ulcer. CONSTITUTIONAL: No fever or chills. PHYSICAL EXAMINATION: GENERAL: The patient is awake, alert. VITAL SIGNS: Afebrile, pulse 75, breathing 16, blood pressure was 129/67. OBJECTIVE: See above. Awake, alert, in no acute distress. GENERAL APPEARANCE AND MENTAL STATUS: Fair. HEAD/NECK: Normocephalic. Atraumatic. EYES: EOMI. No deformity. EARS: Clear. No ulcers. NOSE: Intact. No lesions. MOUTH: Clear. No discharge. THROAT: Clear. No exudate. LUNGS: Clear. No crackles. CARDIAC: S1, S2. No rub. ABDOMEN: Benign. BS+. GENITALIA/RECTUM: Pompa absent. BACK/EXTREMITIES: Edema 0+ Ulcer- NEUROLOGICAL: Alert and motor intact. SKIN: Rash- Bruise- LYMPHATICS: Edema- Ulcer- LABORATORY: Creatinine 2.1. Urine shows protein negative. ASSESSMENT AND RECOMMENDATIONS: 1. Acute kidney injury with chronic kidney disease, could be due to hydronephrosis versus other caus es. We will recheck a CT scan to be sure there is no hydronephrosis and rule out urinary tract infec tion. 2. Hypertension, stable. 3. Anemia, stable. 4. Medication based on GFR are appropriate. No indication for dialysis. Continue hydration.
--- NOTE | 2017-10-23 12:20 | CT ---
CT ABDOMEN AND PELVIS WITHOUT CONTRAST: Date: 10/23/17 HISTORY: Acute kidney injury. Right flank pain. Evaluate for stones. Surgical history of cholecystectomy and h ysterectomy. COMPARISON: CT stone protocol of 10/13/17. FINDINGS: There are small bilateral layering pleural effusions. This is new from the comparison examination. No significant pericardial fluid. Heart size is mildly enlarged. Right ureteral stent is in place with proximal portion of the catheter within the proximal right uret er distal to the renal pelvis approximately 3.0 cm. Mild right-sided hydroureteronephrosis of the pro ximal ureter. Distal ureter is without significant dilatation. There are bilateral renal calculi, sim ilar to the comparison examination. There is a proximal left ureteral calculus partially obstructive, new from the comparison examination, proximal left ureter measuring 5.0 x 6.0 mm. This is distal to the renal pelvis approximately 3.5 cm. Multiple left-sided renal calculi. There is stool burden throughout the rectal vault. Numerous compression deformities throughout the spine. Two partially threaded cannulated screws are p resent in the left femoral neck. Old pubic rami fractures. Right total hip arthroplasty. There is sclerosis of the SI joints. There are erosions of the left SI joint. Prior cholecystectomy. Mildly prominent perirenal lymph nodes on the right. No evidence for bowel obstruction. IMPRESSION: 1. New, partially obstructing, left proximal ureteral calculus measuring 5.0 x 6.0 mm distal to the renal pelvis 3.2 cm. 2. The proximal portion of the right ureteral stent is within the proximal right ureter distal to th e renal pelvis approximately 3.0 cm, with the stent distal portion of the pigtail catheter in the pat ient's urethra/vaginal opening. POS: [facility]
[2017-10-23 19:00] LABS: Bilirubin Negative (Negative); Blood, Urine Large (Negative); Clarity CLOUDY (Clear); Glucose, Urine (Dipstick) Negative (Negative); Leukocyte Large (Negative); Nitrite Negative (Negative); Protein, Urine (Dipstick) Trace mg/dL (Neg-Trace); Urobilinogen 0.2 mg/dL (0.2-1.0); pH, Urine 6.5 (5.0-9.0)
[2017-10-23 19:02] LABS: Bacteria/HPF None Seen HPF (None Seen); Hyaline Casts/LPF 0-3 HYALINE CAST LPF (0-3 Hyaline); Pathc Cast-AUWi Flag 0.27 (0-2.49); RBC/HPF 21-50 HPF (0-3); Squamous Epithelial 0-3 HPF (0-3); WBC/HPF 21-50 HPF (0-3)
[2017-10-23] MEDS: ALPRAZolam 0.25 MG TAB PO PRN (20:03)
[2017-10-23] MEDS: rOPINIRole HCl 0.5 MG TAB PO SCH (20:56)
[2017-10-23] MEDS: traZODone HCl 50 MG TAB PO SCH (20:57)
[2017-10-23] MEDS ORDERED: Amiodarone 200 MG TAB PO SCH (21:00)
[2017-10-24] MEDS: Morphine ER 30 MG TAB PO PRN (00:58)
[2017-10-24] MEDS: Levothyroxine Sodium 112 MCG TAB PO SCH (05:27)
[2017-10-24] MEDS: Levothyroxine Sodium 25 MCG TAB PO SCH (05:27)
[2017-10-24 05:30] LABS: #Eosinphils 0.4 thou/uL (0.0-0.7); #Lymphocytes 1.1 thou/uL (1.20-3.40); #Monocytes 0.8 thou/uL (0.11-0.59); #Neutrophils 3.2 thou/uL (1.40-6.50); %Basophils 0.2 % (0.0-1.0); %Eosinophils 7.4 % (0.0-10.0); %Lymphocytes 20.5 % (21.0-51.0); %Monocytes 14.9 % (0.0-10.0); %Neutrophils 57.1 % (42.0-75.0); Hemoglobin 8.6 g/dL (12.0-16.0); Mean Corpuscular HGB CONC 32.6 g/dL (32.0-36.0); Mean Corpuscular Hemoglobin 30.9 pg (27.0-31.0); Mean Corpuscular Volume 94.6 fl (81.0-99.0); Mean Platelet Volume 6.9 fL (7.4-10.4); Platelet Count 361 thou/uL (130-400); RBC Distribution Width 13.2 % (11.5-14.5); Red Blood Cell (RBC) Count 2.78 mill/uL (4.20-5.40); White Blood Cell (WBC) Count 5.6 thou/uL (4.8-10.8)
[2017-10-24 05:41] LABS: Iron 45 ug/dL (50-170); Iron Binding Capacity, Total 186 mcg/dL (265-497)
[2017-10-24 05:46] LABS: Anion Gap 11 mmol/L (10-20); BUN (Urea Nitrogen) 16 mg/dL (9.8-20.1); Calc. Creatinine Clearance 22 mL/min (70-130); Calcium 8.9 mg/dL (7.8-10.44); Carbon Dioxide 29 mmol/L (23-31); Chloride 97 mmol/L (98-107); Estimated GFR-MDRD 28; Glucose 86 mg/dL (83-110); Iron 39 ug/dL (50-170); Potassium 4.6 mmol/L (3.5-5.1); Sodium 132 mmol/L (136-145)
[2017-10-24] MEDS: Ferrous Sulfate 325 MG TAB PO SCH (07:44)
[2017-10-24] MEDS: HYDROcodone/Acetaminophen 5/325 mg Tablet PO PRN ×2 (07:44→20:20)
[2017-10-24] MEDS ORDERED: Morphine ER 30 MG TAB PO PRN (07:55)
[2017-10-24] MEDS ORDERED: Tamsulosin HCl 0.4 MG CAP PO SCH (08:00)
[2017-10-24] MEDS ORDERED: Iron Dextran 500 MG, Admixture Fee 1 EACH in Sodium Chloride 0.9% 250 ML IVPB SCH (08:45)
--- NOTE | 2017-10-24 09:07 | PRG ---
DATE OF SERVICE: 10/24/2017 Ms. Thapa feels about the same. She is on oxygen. Her oxygen saturation is 90% on nasal cannula oxy gen. PHYSICAL EXAMINATION: VITAL SIGNS: Blood pressure 128/60, pulse 82. She is in atrial flutter. LUNGS: Clear anteriorly and laterally. CARDIAC: She is currently regular. ABDOMEN: Soft and nontender. ASSESSMENT: 1. Atrial flutter, recurrent. 2. She is on oxygen chronically off and on at home. I do think amiodarone long-term is going to be a viable option for her. 3. Multaq was ineffective. 4. Diastolic heart failure. The ejection fraction 50-55%. She has intermittently had high BNP, in 2015 it was 402, in September of this year it was 124.8. PLAN: I asked Electrophysiology to see her and decide whether the best option will be to try to repe at ablation versus pacemaker ultimately followed by AV junction ablation. Repeat chest x-ray in view of the hypoxemia which I think is chronic, however.
[2017-10-24] MEDS: Multivit, Therapeutic 1 TAB PO SCH (09:10)
[2017-10-24] MEDS: ALPRAZolam 0.25 MG TAB PO SCH (09:10)
[2017-10-24] MEDS: Loratadine 10 MG TAB PO SCH (09:11)
[2017-10-24] MEDS: Famotidine 20 MG TAB PO SCH (09:11)
[2017-10-24] MEDS: Senokot 8.6 MG TAB PO SCH ×2 (09:11→20:22)
[2017-10-24] MEDS: Fluconazole 100 MG TAB PO SCH (09:11)
[2017-10-24] MEDS: TROSPIUM 20 MG TABLET PO SCH (09:11)
[2017-10-24] MEDS: Calcium Carbonate + Vit D 1 TAB PO SCH (09:12)
--- NOTE | 2017-10-24 09:44 | PRG ---
DATE OF SERVICE: 10/24/2017 SUBJECTIVE: An 87-year-old female being seen for acute kidney injury. The patient denies any nausea , vomiting, or chest pain. PHYSICAL EXAMINATION: GENERAL: The patient awake and alert. VITAL SIGNS: Afebrile, pulse 88, breathing 16, blood pressure 138/60. HEAD/NECK: Normocephalic. Atraumatic. EYES: EOMI. No deformity. EARS: Clear. No ulcers. NOSE: Intact. No lesions. MOUTH: Clear. No discharge. THROAT: Clear. No exudate. LUNGS: Clear. No crackles. CARDIAC: S1, S2. No rub. ABDOMEN: Benign. BS+. GENITALIA/RECTUM: Pompa absent. BACK/EXTREMITIES: Edema 0+ Ulcer- NEUROLOGICAL: Alert and motor intact. SKIN: Rash- Bruise- LYMPHATICS: Edema- Ulcer- LABORATORY DATA: Show hemoglobin 8.6, creatinine 1.7. ASSESSMENT AND RECOMMENDATIONS: 1. Acute kidney injury, improved. 2. Hypertension, stable. 3. Anemia, stable. 4. Hydronephrosis and kidney stone. We will recommend Urology consultation.
--- NOTE | 2017-10-24 09:50 | RAD ---
CHEST ONE VIEW: History: Dyspnea. Comparison: 09-29-17 FINDINGS: Layering bilateral pleural effusions. There is chronic scarring throughout the lungs worse in the abby gula and right middle lobe. No pneumothorax. Lungs are osteopenic. Likely there are some chronic compression deformities throughout the thoracic s pine. IMPRESSION: Layering bilateral pleural effusions with parenchymal scarring in the lung bases. POS: [facility]
--- NOTE | 2017-10-24 10:08 | PDOC.CTH ---
Cardiology Progress Note - Subjective Patient rested well overnight and has no new cardiac complaints. She is most bothered by pain in her lower right abd. She is being evaluated by urology. She reports being up and walking throughout the day and that she feels mostly back to normal except her abd pain. - Objective Vital Signs Temp Pulse Resp BP Pulse Ox 10/24/17 07:48 98.2 F 82 18 93 L 10/24/17 07:45 98.2 F 82 18 128/60 93 L 10/24/17 04:00 98.7 F 81 18 136/68 96 10/23/17 23:55 97.9 F 67 18 133/64 96 Weight 128 lb 10/23/17 10/24/17 10/25/17 06:59 06:59 06:59 Intake Total 1600 2300 Balance 1600 2300 - Physical Examination General/Neuro: alert & oriented x3, NAD Neck: carotid US brisk, no JVD present Lungs: unlabored respirations, other: (O2 via NC) Heart: PMI normal, RRR Abdomen: no HSM, soft, other: (RLQ tenderness) Extremities: other: (no edema, clubbing, or cyanosis) - Telemetry Telemetry Rhythm: NSR, paroxysmal A Flutter - Labs Result Diagrams: 10/26/17 04:44 10/26/17 04:44 - Assessment/Plan 1. Atrial arrhythmias-Patient currently in NSR but continues to have paroxysmal atrial flutter 2:1 with controlled ventricular rates. A. Atrial flutter s/p CTI ablation in 2014 without recurrence. A Fib was also seen at that time during ablation. Atypical flutter new this hospitalization. 2. AAD- Multaq 400mg PO BID was ineffective. Limited options given renal function, COPD, and diastolic HF. Amiodarone 200mg BID was started last night for temporary management in hopes of maintaining NSR, especially now while patient is not anticoagulated and at moderate for embolic event. 3. Chronic oral anticoagulation on hold. Acute drop in H/H and OAC stopped. High risk for embolic event given paroxysmal atrial arrhythmias. Could consider left atrial occlusion device in future given recent bleed while on OAC. 4. 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 Asymptomatic sinus pauses up to 2.7 seconds, in the setting of converting from AT/AFL to NSR. Agree with cardiology that patient might benefit from PPM insertion for improved rate control and medical arrhythmia management. No kvng or tachy episodes overnight. Off metoprolol x 24 hrs. dual chamber PPM implant tomorrow by Dr. Acuña
[2017-10-24 12:22] VITALS: BMI 21.9
--- NOTE | 2017-10-24 14:05 | PDOC.PN ---
- Subjective Encounter Start Date: 10/24/17 Encounter Start Time: 07:55 -: old records requested/rev Pt seen and exmained, chart reviewed in its entirety, this si the first time this stay i have seen this patient. no F/c, no N/V/D/C, right abdomen still with constant pain, no other compalints Renal saw, ordered Ct which revealed new LEFT partially obstructing renal stone. Urolog consulted. 10 point ROs performed and neg for all systems except as per HPI - Objective Resuscitation Status: Resuscitation Status FULL:Full Resuscitation MAR Reviewed: Yes Vital Signs & Weight: Vital Signs (12 hours) Temp Pulse Resp BP Pulse Ox 10/24/17 07:48 98.2 F 82 18 93 L 10/24/17 07:45 98.2 F 82 18 128/60 93 L 10/24/17 04:00 98.7 F 81 18 136/68 96 Weight Admit Weight 126 lb Weight 128 lb I&O: 10/23/17 10/24/17 10/25/17 06:59 06:59 06:59 Intake Total 1600 2300 Balance 1600 2300 Result Diagrams: 10/24/17 05:13 10/24/17 05:13 Radiology Reviewed by me: Yes EKG Reviewed by me: Yes Phys Exam - Physical Examination Constitutional: NAD HEENT: PERRLA, moist MMs, sclera anicteric, oral pharynx no lesions Neck: no nodes, no JVD, supple, full ROM Respiratory: no wheezing, no rales, no rhonchi, clear to auscultation bilateral Cardiovascular: no significant murmur, no rub, irregular Gastrointestinal: soft, no distention, positive bowel sounds left sided tenderness to palpation Musculoskeletal: pulses present, edema present Neurological: non-focal, normal sensation, moves all 4 limbs Lymphatic: no nodes Psychiatric: normal affect, A&O x 3 Skin: no rash, normal turgor, cap refill <2 seconds Dx/Plan - Plan cont current plan of care, PT/OT * . urology consult, follow up on cardiology and renal recs.
[2017-10-24] MEDS: ALPRAZolam 0.25 MG TAB PO PRN (15:43)
[2017-10-24] MEDS ORDERED: CEFAZOLIN/Water 2 GM/20 ML SYRINGE SLOW IVP SCH (18:00)
--- NOTE | 2017-10-24 18:03 | PRG ---
DATE OF SERVICE: 10/24/2017 CHIEF COMPLAINT: Right-sided abdominal pain. PHYSICAL EXAMINATION: VITAL SIGNS: Temperature 98.4, pulse 90, respiratory rate 20, O2 saturation 93%, blood pressure 160/ 74. CHEST: Clear to auscultation. CARDIOVASCULAR: No murmurs. ABDOMEN: Soft, nontender, no palpable masses. No peritoneal signs. IMAGING: CT scan on 10/23/2017 showed migrated right ureteral stent, chronic stones in right kidney, left renal stones, left ureteral stone, upper ureter 5 x 6 mm. IMPRESSION: Ms. Thapa is status post stent placement followed by ureteroscopy, stone extraction, and stent replacement. There is no evidence of right ureteral obstruction. She has chronic right-sided kidney stones that do not appear occlusive. The stent had been inadvertently pulled and as a result migrated out of the right renal pelvis. It was removed today, but she continues to have some right- sided pain. Interestingly, she has no left-sided pain despite having a 5-6 mm left upper ureteral st one. I have discussed these findings with both the patient and with her son (Ezekiel). I have no expla nation for the right-sided pain as there is no evidence of obstructive uropathy and her stent is now removed. Interestingly, the left-sided stone is not causing any pain. Thus management of the left-s ided stone with ureteroscopy and stone extraction, he would like to avoid any further anesthesia sinc e she has not been tolerating it well as per his assessment. As such, he has requested that the left -sided stone only be treated if absolutely necessary. Because the stone is a size that is potentiall y passable, we will avoid any intervention for the left-sided stone unless she develops pain, fever o r chills. RECOMMENDATIONS: eft ureteroscopy with laser lithotripsy, stone extraction if she develops left-side d symptoms. I do not know the source of her right-sided pain.
[2017-10-24] MEDS: rOPINIRole HCl 0.5 MG TAB PO SCH (20:22)
[2017-10-24] MEDS: Tamsulosin HCl 0.4 MG CAP PO SCH (20:22)
[2017-10-24] MEDS: traZODone HCl 50 MG TAB PO SCH (20:22)
[2017-10-25 05:29] LABS: INR-International Normal Ratio 1.2; PTT 36.6 SEC (22.9-36.1); Prothrombin Time 14.9 SEC (12.0-14.7)
[2017-10-25 05:41] LABS: Band 3 % (5-11); Eosinophils 6 % (0-10); Hemoglobin 9.9 g/dL (12.0-16.0); Lymphocytes 36 % (21-51); MDiff Complete? YES; Mean Corpuscular HGB CONC 32.9 g/dL (32.0-36.0); Mean Corpuscular Hemoglobin 31.1 pg (27.0-31.0); Mean Corpuscular Volume 94.4 fl (81.0-99.0); Mean Platelet Volume 7.6 fL (7.4-10.4); Monocytes 8 % (0-10); Neutrophil 47 % (42-75); PLT Morphology Comment Appears Adequate; Platelet Count 372 thou/uL (130-400); RBC Distribution Width 13.5 % (11.5-14.5); Red Blood Cell (RBC) Count 3.18 mill/uL (4.20-5.40)
[2017-10-25 05:58] LABS: Anion Gap 15 mmol/L (10-20); BUN (Urea Nitrogen) 12 mg/dL (9.8-20.1); Calc. Creatinine Clearance 23 mL/min (70-130); Carbon Dioxide 25 mmol/L (23-31); Chloride 101 mmol/L (98-107); Estimated GFR-MDRD 30; Glucose 80 mg/dL (83-110); Potassium 4.6 mmol/L (3.5-5.1); Sodium 136 mmol/L (136-145)
[2017-10-25] MEDS: Levothyroxine Sodium 25 MCG TAB PO SCH (06:04)
[2017-10-25] MEDS: Levothyroxine Sodium 112 MCG TAB PO SCH (06:04)
--- NOTE | 2017-10-25 08:29 | PRG ---
DATE OF SERVICE: 10/25/2017 SUBJECTIVE: This is an 87-year-old female being seen for acute kidney injury. The patient denies an y nausea, vomiting or chest pain. PHYSICAL EXAMINATION: GENERAL: Patient is awake, alert. VITAL SIGNS: Afebrile, pulse 92, breathing 16, blood pressure 104/68. OBJECTIVE: See above. Awake, alert, in no acute distress. GENERAL APPEARANCE AND MENTAL STATUS: Fair. HEAD/NECK: Normocephalic. Atraumatic. EYES: EOMI. No deformity. EARS: Clear. No ulcers. NOSE: Intact. No lesions. MOUTH: Clear. No discharge. THROAT: Clear. No exudate. LUNGS: Clear. No crackles. CARDIAC: S1, S2. No rub. ABDOMEN: Benign. BS+. GENITALIA/RECTUM: [place] absent. BACK/EXTREMITIES: Edema 0+ Ulcer- NEUROLOGICAL: Alert and motor intact. SKIN: Rash- Bruise- LYMPHATICS: Edema- Ulcer- LABORATORY: Creatinine 1.6. ASSESSMENT AND RECOMMENDATIONS: 1. Acute kidney injury with chronic kidney disease stage 3, improving. 2. Hypertension, stable. 3. Anemia, stable. 4. Hyponatremia, stable. I will sign off on this patient. Please reconsult as needed.
[2017-10-25] MEDS: Multivit, Therapeutic 1 TAB PO SCH (09:31)
[2017-10-25] MEDS: Calcium Carbonate + Vit D 1 TAB PO SCH (09:31)
[2017-10-25] MEDS: ALPRAZolam 0.25 MG TAB PO SCH (09:31)
[2017-10-25] MEDS: Fluconazole 100 MG TAB PO SCH (09:32)
[2017-10-25] MEDS: Famotidine 20 MG TAB PO SCH (09:32)
[2017-10-25] MEDS: TROSPIUM 20 MG TABLET PO SCH (09:32)
[2017-10-25] MEDS: Senokot 8.6 MG TAB PO SCH ×2 (09:33→21:08)
[2017-10-25] MEDS: Loratadine 10 MG TAB PO SCH (09:33)
[2017-10-25] MEDS: Ferrous Sulfate 325 MG TAB PO SCH (09:33)
[2017-10-25] MEDS: HYDROcodone/Acetaminophen 5/325 mg Tablet PO PRN ×2 (09:36→18:56)
--- NOTE | 2017-10-25 11:50 | PDOC.PN ---
- Subjective Encounter Start Date: 10/25/17 Encounter Start Time: 09:25 belly pain better, though no BM in a few days. No f/C, no n/V/D/c. For PPM placement today, so pt can tolerate BBlockers to control tachyarrhythmias. Pt seen by Dr Michaud, no plans for litho until she develops symptoms at sons request 10 point ROS performed and neg for all systems except as per HPI - Objective Resuscitation Status: Resuscitation Status FULL:Full Resuscitation MAR Reviewed: Yes Vital Signs & Weight: Vital Signs (12 hours) Temp Pulse Resp BP Pulse Ox 10/25/17 08:17 98.5 F 77 14 154/70 H 92 L 10/25/17 08:00 98.5 F 77 14 10/25/17 04:00 98.2 F 87 18 174/81 H 92 L 10/25/17 00:00 98.7 F 77 16 146/68 H 95 Weight Admit Weight 126 lb Weight 128 lb I&O: 10/24/17 10/25/17 10/26/17 06:59 06:59 06:59 Intake Total 2300 1450 Output Total 800 Balance 2300 650 Result Diagrams: 10/25/17 04:51 10/25/17 04:51 EKG Reviewed by me: Yes Phys Exam - Physical Examination Constitutional: NAD HEENT: PERRLA, moist MMs, sclera anicteric, oral pharynx no lesions Neck: no nodes, no JVD, supple, full ROM Respiratory: no wheezing, no rales, no rhonchi, clear to auscultation bilateral Cardiovascular: RRR, no significant murmur, no rub Gastrointestinal: soft, non-tender, no distention, positive bowel sounds Musculoskeletal: no edema, pulses present Neurological: non-focal, normal sensation, moves all 4 limbs Lymphatic: no nodes Psychiatric: normal affect, A&O x 3 Skin: no rash, normal turgor, cap refill <2 seconds Dx/Plan (1) Atrial flutter Code(s): I48.92 - UNSPECIFIED ATRIAL FLUTTER Status: Acute Qualifiers: Atrial flutter type: atypical Qualified Code(s): I48.4 - Atypical atrial flutter Comment: On apixaban and Multaq. for PPM today (2) Bilateral ureteral calculi Code(s): N20.1 - CALCULUS OF URETER Status: Chronic Comment: s/p ureteroscopy, lithotripsy and stent placement 10/16/2017, stent displaced and removed yesterday, it was time. new Left renal stone, partially obstructing. on flomax, no plans to instrument unless she develops UTI or obstructive symptoms (3) Abdominal pain in female Code(s): R10.9 - UNSPECIFIED ABDOMINAL PAIN Status: Acute Comment: better, suspect GI. Miralax daily (4) Chronic renal failure Status: Acute Qualifiers: Chronic kidney disease stage: stage 3 (moderate) Qualified Code(s): N18.3 - Chronic kidney disease, stage 3 (moderate) Comment: stable (5) Afib Code(s): I48.91 - UNSPECIFIED ATRIAL FIBRILLATION Status: Chronic Qualifiers: Atrial fibrillation type: paroxysmal Qualified Code(s): I48.0 - Paroxysmal atrial fibrillation (6) CKD (chronic kidney disease) stage 3, GFR 30-59 ml/min Status: Chronic Comment: stbale renal fucntions. (7) COPD (chronic obstructive pulmonary disease) Status: Chronic Qualifiers: Comment: No evidence of COPD exacerbation. (8) HTN (hypertension) Code(s): I10 - ESSENTIAL (PRIMARY) HYPERTENSION Status: Chronic Qualifiers: Comment: Monitor vital signs, titrate antihypertensives as needed (9) History of ureter stent Code(s): Z96.0 - PRESENCE OF UROGENITAL IMPLANTS Status: Chronic - Plan cont current plan of care, PT/OT, out of bed/ambulate * .
[2017-10-25] MEDS ORDERED: Propofol 500 MG/50 ML VIAL ONE (14:17)
[2017-10-25] MEDS ORDERED: Midazolam HCl 2 mg/2 ml Vial ONE (14:46)
[2017-10-25] MEDS ORDERED: Iopamidol 370 76% 50 ML VIAL FS ONE (16:26)
[2017-10-25] MEDS ORDERED: Acetaminophen/Codeine 30-300mg Tablet PO PRN ×2 (16:30)
--- NOTE | 2017-10-25 17:05 | OP ---
DATE OF PROCEDURE: 10/25/2017 INDICATION FOR PROCEDURE: Symptomatic sinus node dysfunction and bradycardia with a history of parox ysmal atrial arrhythmias resistant to treatment without antibradycardia pacing. INDUSTRIAL ROOF PLUMBER: Dr. Acuña. MEDICATIONS: As per Anesthesia. COMPLICATIONS: None. ESTIMATED BLOOD LOSS: Less than 20 mL METHODS: After informed consent was obtained, the patient was brought to electrophysiology laborator y. She received 2 grams of intravenous Ancef. Using lidocaine skin overlying the left infraclavicul ar fossa was locally anesthetized, a Venogram was performed and using a modified Seldinger technique and a first rib approach, central axis was achieved. Venous pressures were extremely low. Patient h ad to have her feet elevated and receive a bolus of fluid and still there was essentially no venous p ressure. One wire was able to be placed. Once the initial wire was placed using a #15 blade, a skin incision was made using combination of sharp, blunt and Bovie dissection, a pacemaker pocket was for med. The J was brought to the base of the pocket and then using a 7-Hungarian sheath, a central access was achieved, a second wire was placed through the sheath. The sheath was removed and then the 7 Keaton nch sheath were placed over each wire individually. The ventricular lead was placed in the central c irculation and advanced to the outflow tract and positioned in the right ventricular septal region. Then, through the other free sheath, the atrial lead was placed in the central circulation and positi oned in the right atrial appendage region. Both sheaths were removed after adequate sensing and paci ng parameters were noted. There is no evidence of diaphragmatic or phrenic nerve pacing. With the s dickson out, both leads were secured with silk ties. The pocket was copiously irrigated. The device w as attached, placed in the pocket and secured. The pocket was reirrigated and closed with two layers of Vicryl and skin adhesive. Patient tolerated the procedure well. FINDINGS: The device implanted is a [employer] Advisa, serial number [id number], the atrial lead is a 4574-45, serial number [id number], ventricular lead 5076-52, serial number [id number], P waves are 2 .3, impedance is 532, threshold 0.8 at 0.5, ventricular electrogram is 6.3, impedance of 596, thresho ld 0.5 at 0.5. Device will be initially programmed in the DDI mode, low rate of 60 beats per minute for now. Also, notably initially the patient was noted to be in atrial flutter. It appears that thi s is paroxysmal, atrial flutter was pace terminated. No evident complications seen. IMPRESSION: Successful dual-chamber permanent pacemaker. RECOMMENDATIONS: Proceed with antidromic or antiarrhythmic medications as warranted with pacing supp ort switch engineer if rhythms are difficult to control. Consider AV junction ablation once pacemaker lead s are stable.
--- NOTE | 2017-10-25 17:17 | RAD ---
CHEST ONE VIEW: 10/25/17 HISTORY: Pacemaker placement. COMPARISON: 09/29/17. FINDINGS: The cardiac silhouette is magnified by projection and upper limits of normal. Pulmonary vasculature i s unremarkable. Patient is rotated leftward. Calcifications apparent within the aorta. Chronic inters titial thickening is again demonstrated. Dual lead left subclavian cardiac electronic device is in pl [place]. No evidence of pneumothorax. conservation enforcement officer leads overlie the chest. IMPRESSION: 1. Dual lead left subclavian cardiac pacer is in good radiographic position. 2. Atherosclerosis. POS: RAMIREZ
[2017-10-25] MEDS: traZODone HCl 50 MG TAB PO SCH (21:08)
[2017-10-25] MEDS: Cephalexin 250 MG CAP PO SCH (21:08)
[2017-10-25] MEDS: rOPINIRole HCl 0.5 MG TAB PO SCH (21:08)
[2017-10-25] MEDS: Tamsulosin HCl 0.4 MG CAP PO SCH (21:08)
[2017-10-26] MEDS: Levothyroxine Sodium 112 MCG TAB PO SCH (05:01)
[2017-10-26] MEDS: Levothyroxine Sodium 25 MCG TAB PO SCH (05:01)
[2017-10-26 06:17] LABS: Hemoglobin 9.6 g/dL (12.0-16.0); Platelet Count 265 thou/uL (130-400)
[2017-10-26] MEDS: HYDROcodone/Acetaminophen 5/325 mg Tablet PO PRN ×2 (07:24→14:19)
[2017-10-26] MEDS: Calcium Carbonate + Vit D 1 TAB PO SCH (09:32)
[2017-10-26] MEDS: TROSPIUM 20 MG TABLET PO SCH (09:32)
[2017-10-26] MEDS: Cephalexin 250 MG CAP PO SCH ×2 (09:32→14:19)
[2017-10-26] MEDS: Fluconazole 100 MG TAB PO SCH (09:32)
[2017-10-26] MEDS: Senokot 8.6 MG TAB PO SCH (09:33)
[2017-10-26] MEDS: Famotidine 20 MG TAB PO SCH (09:33)
[2017-10-26] MEDS: ALPRAZolam 0.25 MG TAB PO SCH (09:34)
[2017-10-26] MEDS: Ferrous Sulfate 325 MG TAB PO SCH (09:34)
[2017-10-26] MEDS: Multivit, Therapeutic 1 TAB PO SCH (09:38)
[2017-10-26] MEDS: Loratadine 10 MG TAB PO SCH (09:46)
--- NOTE | 2017-10-26 10:29 | PDOC.CTH ---
<Paty Hernandez - Last Filed: 10/26/17 10:57> Cardiology Progress Note - Subjective EP progress note: Mrs. Thapa has done well overnight. She continues to feel tired and like she is sleeping too much. She is eager to go home. Denies any heart racing, dizziness , palpitations, or passing out. She is having some pain at her PPM implant site which has been treated with PO pain medicine with moderate relief. - Objective Vital Signs Temp Pulse Pulse Pulse Resp BP BP 10/26/17 09:28 92 68 120/80 158/67 H 10/26/17 04:00 98.2 F 92 18 10/26/17 00:00 98.2 F 91 17 BP Pulse Ox Pulse Ox Pulse Ox 10/26/17 09:28 92 L 95 10/26/17 04:00 136/65 93 L 10/26/17 00:00 138/71 95 Admit Weight 126 lb Weight 125 lb 6.4 oz 10/25/17 10/26/17 10/27/17 06:59 06:59 06:59 Intake Total 1450 952 Output Total 800 2000 Balance 650 -1048 - Physical Examination General/Neuro: alert & oriented x3, NAD Neck: carotid US brisk, no JVD present Lungs: CTA, unlabored respirations Heart: PMI normal, RRR Abdomen: NT/ND, soft Extremities: + edema B (trace BLE) - Telemetry Telemetry Rhythm: atypical flutter - Labs Result Diagrams: 10/26/17 04:44 10/26/17 04:44 - Assessment/Plan 1. Sinus node dysfunction, symptomatic. s/p dual chamber PPM implant. post operate CXR stable. awaiting post op device check by [employer]. Pressure dressing in place over site. No hematoma present. Discharge with Keflex 500mg PO Q6hr x 10 days. 2. Atrial arrhythmias. paroxysmal atypical atrial flutter. Started on Diltiazem 180mg daily for rate control as she continues to have RVR with activity. PPM site stable. OK for DC by EP. Has follow up appointment on 11/08 at 11:00. <Tae Carwford - Last Filed: 10/30/17 16:05> Cardiology Progress Note - Objective Admit Weight 126 lb Weight 125 lb 6.4 oz - Labs Result Diagrams: 10/26/17 04:44 03/15/18 04:44 Attending Addendum - Attending Addendum Date/Time: 10/30/17 3717 I personally evaluated the patient and discussed the management with Ms Bowers. I agree with the History, Examination, Assessment and Plan documented above with any addition or exceptions noted below.
[2017-10-26 12:09] VITALS: BP 136/67; TEMP 98.4
--- NOTE | 2017-10-26 17:09 | DIS ---
DATE OF ADMISSION: 10/13/2017 DATE OF DISCHARGE: 10/26/2017 PRIMARY CARE PHYSICIAN: Devi Cardenas M.D. PRIMARY BRICK CLEANER: J Luis Soto M.D. PRIMARY CERTIFIED MEDICAL TRANSCRIPTIONIST: Tae Crawford M.D. STAND-IN CERTIFIED MEDICAL TRANSCRIPTIONIST: Bran Acuña M.D. DISCHARGE DIAGNOSES: 1. Tachybrady syndrome. 2. Status post permanent pacemaker placement. 3. Acute kidney injury on chronic kidney disease, stage 3. 4. Physical deconditioning. 5. Hypertension. 6. Bilateral nephrolithiasis. 7. Status post right renal stent and removal. 8. Chronic obstructive pulmonary disease without acute exacerbation. 9. Chronic atrial fibrillation. 10. Right-sided abdominal pain. 11. Left partially obstructing renal calculus. CONSULTATIONS: 1. Dr. Forrester on 10/14/[address] Forbes on 10/24/2017. 2. Nephrology, Dr. Crispin Lehman. 3. EP, Dr. Tae Crawford and Dr. Bran Acuña. 4. Cardiology, Dr. Josué Viera, followed up with Dr. J Luis Soto. PROCEDURES: 1. Retrograde pyelogram 10/16/2017. 2. Right ureteral stent removal, 10/24/2017. 3. Cystoscopy, ureteroscopy, laser lithotripsy, stone removal and stent placement, 10/16/[address] Forbes. 4. Permanent pacemaker placement 10/25/[address] Bran Acuña. HOSPITAL COURSE: Ms. Thapa is an 87-year-old female well known to me from recent admission. Current ly, lives with assisted living part of [facility]. She was complaining of right flank pain, so sent to the emergency department for evaluation on 2017. She does have a history of chronic respiratory failure on 2-3 liters nasal cannula. She recen tly here in the hospital and discharged on 10/01/2017 after an episode of obstructive uropathy with s eptic shock and respiratory failure. She is having some dysuria. No nausea or vomiting. She was complaining of pain as 7/10. Workup in the ER revealed a right ureteral stent and nonobstructive bilateral renal calculi. Her [facility] te blood cell count was normal, sodium was low at 129. Creatinine was stable at 1.4. Urinalysis sug gestive of possible urinary tract infection. The patient was admitted to medical floor. HOSPITAL COURSE: The patient was seen by and examined by Dr. Pond and admitted to Medicine. Urol ogy was consulted and started on empiric antibiotics with meropenem and IV fluids. Home medications were resumed and pain control was obtained with oral pain medication. PT was consulted and the patie nt was placed on GI prophylaxis with Pepcid and was already on Eliquis. Overnight 10/13/2017 to 10/14/2017, patient remained fairly stable. She was seen by Dr. Forrester in the morning who recommended ureteroscopy, laser lithotripsy when Dr. Forbes returns. The patient was seen by PT who felt she was appropriate for walking program and signed off at that point. The patient remained fairly stable, but still complaining of pain from 10/14/2017 to 10/16/2017. On 10/16/2017, Dr. Forbes returned to the cystoscopy suite where he did the cystoscopy and retrograd e pyelogram and placed a 6 x 24 double-J stent over the wire into the right renal pelvis. She tolera jad this well. Cardiology was consulted and saw her in the evening of 10/16/2017 for her proximal atrial fibrillatio n and sick sinus syndrome. Dr. Viera recommended saline for the low blood pressure and given a lo ad of intravenous digoxin to keep her rate controlled. On 10/17/2017, the patient was seen by Dr. Tae Crawford who proposed current treatment, she was mainta ining sinus rhythm. He thought she was a poor candidate for ablation, but felt she may need to have a pacemaker placed and adequately beta blocked to keep her from getting too tachycardic and too kvng cardic. By 10/18/2017, patient was remaining fairly stable. She is being followed by Dr. Long at that point . She was switched to oral antibiotics for presumed UTI and continued on fluconazole. She was expec jad to go home in 24 hours. On 10/19/2017, patient was feeling at her baseline. Follow up that afternoon with Dr. Crawford recommend ed continued chronic oral anticoagulation with Eliquis and starting patient on Multaq. She was watch ed overnight again. She remained stable. She was planning to get up and out of bed. She is still c omplaining of her abdominal pain. She remained stable and weak in bed through the 10/22/2017 and was wanting to go to rehab. PT and OT was not reconsulted as they signed off back on 10/14/2017 and not been seeing her. She was working with a walking program, walking well over 200 feet daily. On 10/12, Dr. Mattson took over care for the day. He notes she was having hematuria. I would also note h er creatinine has increased to 2.11. Renal was consulted who recommended a CT abdomen and pelvis sally t was done the later that morning. The patient was seen by Dr. Lehman and was noted to have a nonobstr ucting new left 5-6 mm renal calculus. I took over the case on 10/24/2017 with these findings, Dr. Forbes was reconsulted and after discuss ion with the son, it was decided while she was having signs of obstruction or sepsis, no intervention will be done. PT/OT was ultimately consulted to get her reevaluated for skilled placement; however, due to her ability to ambulate 200 plus feet with minimal assistance in the hallway, we were informe d that she was not a candidate for physical therapy standpoint to get a [facility] facility. Charisse gonzalez was seen in followup by Cardiology and a doctor can be ultimately decided to go ahead and place a p ermanent pacemaker on 10/25/2017, that way she would have a minimum threshold and could be adequately beta blocked to prevent her from going to further atrial tachyarrhythmias. On 10/25/2017, she had a permanent pacemaker placement without complications. She was doing well. H emoglobin and hematocrit and chest x-ray were stable. By 10/26/2017, she was stable for discharge ba ck to her assisted living apartment with home health care and physical therapy. PHYSICAL EXAMINATION: The patient was seen and examined on the day of discharge. Discharge plan and disposition was discussed with the patient face to face at the bedside. DISCHARGE MEDICATIONS: 1. Keflex 250 mg p.o. t.i.d. for 10 days. 2. Cardizem-CD 180 mg p.o. daily. 3. MiraLax 17 grams daily and Flomax 0.4 mg p.o. at bedtime. New prescriptions for these were sent and was continued on Tylenol as needed, Xanax 0.25 mg p.o. daily, amlodipine 5 mg daily, Eliquis 2.5 mg b.i.d. 4. Calcium carbonate 600/400 daily. 5. Cholecalciferol 1000 units daily. 6. Clonidine 0.1 mg p.o. q.4 hours p.r.n. elevated blood pressure. 7. Famotidine 20 mg p.o. b.i.d. 8. Iron sulfate 325 mg daily. 9. DuoNebs 3 mL q.4 h. p.r.n. shortness of breath or wheezing. 10. Levothyroxine 137 mcg daily. 11. Loratadine 10 mg daily. 12. MS Contin 30 mg p.o. b.i.d. for pain. 13. Multivitamin daily. 14. Requip 0.5 mg p.o. q.p.m. 15. Sennosides 17.2 mg b.i.d. 16. Detrol 2 mg p.o. b.i.d. 17. Trazodone 50 mg p.o. at bedtime. FOLLOWUP APPOINTMENTS: 1. Primary care physician within a week. 2. Cardiology in 2-[address] Acuña in 6 weeks per his clinic. DISCHARGE ACTIVITY: Per cardiopulmonary limits. DISCHARGE DIET: Heart healthy recommended. DISCHARGE CONDITION: Stable. DISPOSITION: Will be discharged back to assisted living at [facility] with home health care.
--- NOTE | 2017-11-17 09:34 | EKG ---
Test Reason : STAT Blood Pressure : / mmHG Vent. Rate : 085 BPM Atrial Rate : 085 BPM P-R Int : 206 ms QRS Dur : 082 ms QT Int : 372 ms P-R-T Axes : 064 -24 042 degrees QTc Int : 442 ms Normal sinus rhythm Septal infarct (cited on or before 16-OCT-2017) Abnormal ECG When compared with ECG of 16-OCT-2017 19:15, Sinus rhythm has replaced Atrial flutter T wave inversion now evident in Anterior leads Confirmed by DR. Rodri BAKER ([id number]) on 11/17/2017 9:34:07 AM Referred By: ANA Confirmed By:DR. Rodri BAKER
== END 2017-10-26 14:33 | disposition home health service (06) | DRG 694 ==
LOC: ERS 17:00 → SURG B 20:00 → 2NO 10-16 17:25
PROVIDERS: ADMIT Internal Medicine; ATTEND Internal Medicine
PROC: 0TF38ZZ Fragmentation in Right Kidney Pelvis, Via Natural or Artificial Opening Endoscopic (ICD-10-PCS; principal; 2017-10-16)
PROC: 0T768DZ Dilation of Right Ureter with Intraluminal Device, Via Natural or Artificial Opening Endoscopic (ICD-10-PCS; 2017-10-16)
PROC: 0JH606Z Insertion of Pacemaker, Dual Chamber into Chest Subcutaneous Tissue and Fascia, Open Approach (ICD-10-PCS; 2017-10-25)
PROC: 02H63JZ Insertion of Pacemaker Lead into Right Atrium, Percutaneous Approach (ICD-10-PCS; 2017-10-25)
PROC: 02HK3JZ Insertion of Pacemaker Lead into Right Ventricle, Percutaneous Approach (ICD-10-PCS; 2017-10-25)
DX: N13.2 Hydronephrosis with renal and ureteral calculous obstruction (principal); N17.9 Acute kidney failure, unspecified; J96.10 Chronic respiratory failure, unspecified whether with hypoxia or hypercapnia; I48.2 Chronic atrial fibrillation; I13.0 Hypertensive heart and chronic kidney disease with heart failure and stage 1 through stage 4 chronic kidney disease, or unspecified chronic kidney disease; I50.30 Unspecified diastolic (congestive) heart failure; I49.5 Sick sinus syndrome; E87.1 Hypo-osmolality and hyponatremia; G25.81 Restless legs syndrome; I48.92 Unspecified atrial flutter; Z99.81 Dependence on supplemental oxygen; J44.9 Chronic obstructive pulmonary disease, unspecified; K21.9 Gastro-esophageal reflux disease without esophagitis; E03.9 Hypothyroidism, unspecified; G89.29 Other chronic pain; M54.5 Low back pain; F41.9 Anxiety disorder, unspecified; F32.9 Major depressive disorder, single episode, unspecified; N18.3 Chronic kidney disease, stage 3 (moderate); D64.9 Anemia, unspecified; Z86.718 Personal history of other venous thrombosis and embolism; Z87.891 Personal history of nicotine dependence; Z79.01 Long term (current) use of anticoagulants; Z79.899 Other long term (current) drug therapy; Z96.643 Presence of artificial hip joint, bilateral
CPT/HCPCS: 33208; 36005; 36415; 71045; 74176; 74420; 75820; 80048; 80053; 81001; 81003; 81015; 82306; 82565; 82728; 83540; 83550; 83970; 84100; 84439; 84443; 85014; 85018; 85025; 85049; 85610; 85730; 87040; 87086; 93005; 93010; 96374; 96375; A4216; C1758; C1769; C1785; C1898; G8978-GP-CI; G8978-GP-CK; G8979-GP-CI; G8980-GP-CI; J0696; J1100; J1160; J1750; J2001; J2175; J2185; J2250; J2270; J2405; J2704; J3010; J7050; Q9961; S0028

== ENCOUNTER 2017-11-28 10:32 | Outpatient (CLI) | payer MEDICARE ==
--- NOTE | 2017-11-28 12:19 | RAD ---
CHEST PA AND LATERAL: Date: 11/28/17 HISTORY: 87-year-old female with history of dyspnea. COMPARISON: 10/25/17. FINDINGS: There is some rotation to the left. Left ICD. Stable increased linear and interstitial markings and b ilateral costophrenic angle blunting. Diffuse bone demineralization with numerous compressed thoracic vertebral bodies, age-indeterminate. No confluent pneumonia, overt edema, or pleural effusion. IMPRESSION: Stable bilateral costophrenic angle blunting and increased linear and interstitial markings. Stable b one demineralization and numerous age-indeterminate compressed thoracic vertebral bodies. POS: RAMIREZ
== END 2017-11-28 10:33 | disposition home or self-care (01) ==
LOC: RAD 10:32
PROVIDERS: ATTEND Internal Medicine Critical Care Medicine
DX: R06.00 Dyspnea, unspecified (principal); R91.8 Other nonspecific abnormal finding of lung field
CPT/HCPCS: 71046

== ENCOUNTER 2017-12-09 15:43 | Inpatient (IN) | payer MEDICARE ==
[2017-12-09 16:29] LABS: Hemoglobin 10.9 g/dL (12.0-16.0); Mean Corpuscular HGB CONC 31.1 g/dL (32.0-36.0); Mean Corpuscular Hemoglobin 30.2 pg (27.0-31.0); Mean Corpuscular Volume 97.1 fl (81.0-99.0); Platelet Count 195 thou/uL (130-400); RBC Distribution Width 16.1 % (11.5-14.5); Red Blood Cell (RBC) Count 3.61 mill/uL (4.20-5.40); White Blood Cell (WBC) Count 9.3 thou/uL (4.8-10.8)
[2017-12-09 16:49] LABS: Anisocytosis SLIGHT = 6-15 cells (100X) (0-5/hpf); Band 2 % (5-11); Eosinophils 3 % (0-10); Hypochromia SLIGHT = 6-15 cells (100X) (0-5/hpf); Lymphocytes 19 % (21-51); MDiff Complete? YES; Monocytes 4 % (0-10); Neutrophil 71 % (42-75); PLT Morphology Comment Appears Adequate; Target Cells SLIGHT = 2-5 cells (100X) (0-1/hpf)
[2017-12-09 16:50] LABS: ALT (SGPT) 42 U/L (8-55); AST (SGOT) 48 U/L (5-34); Albumin 3.3 g/dL (3.4-4.8); Alkaline Phosphatase 170 U/L (40-150); Anion Gap 18 mmol/L (10-20); BUN (Urea Nitrogen) 82 mg/dL (9.8-20.1); Bilirubin, Total 0.5 mg/dL (0.2-1.2); CK (CPK) 18 U/L (29-168); Calc. Creatinine Clearance 0 mL/min (70-130); Calcium 8.5 mg/dL (7.8-10.44); Carbon Dioxide 20 mmol/L (23-31); Chloride 95 mmol/L (98-107); Estimated GFR-MDRD 9; Globulin 2.5 g/dL (2.4-3.5); Glucose 125 mg/dL (83-110); Lipase 7 U/L (8-78); Magnesium 2.7 mg/dL (1.6-2.6); Potassium 4.2 mmol/L (3.5-5.1); Protein, Total 5.8 g/dL (6.0-8.3); Sodium 129 mmol/L (136-145)
[2017-12-09 16:52] LABS: CKMB 1.1 ng/mL (0-6.6); Troponin I Less than 0.010 ng/mL (< 0.028)
[2017-12-09 17:43] LABS: INR-International Normal Ratio 1.5; PTT 44.1 SEC (22.9-36.1); Prothrombin Time 18.4 SEC (12.0-14.7)
[2017-12-09 18:06] LABS: Bilirubin Negative (Negative); Blood, Urine Large (Negative); Clarity TURBID (Clear); Glucose, Urine (Dipstick) Negative (Negative); Leukocyte Large (Negative); Nitrite Negative (Negative); Protein, Urine (Dipstick) 30 mg/dL (Neg-Trace); Specific Gravity, Urine 1.018 (1.002-1.036); Urobilinogen 0.2 mg/dL (0.2-1.0); pH, Urine 5.5 (5.0-9.0)
[2017-12-09 18:08] LABS: Bacteria/HPF None Seen HPF (None Seen); Hyaline Casts/LPF 0-3 HYALINE CAST LPF (0-3 Hyaline); Pathc Cast-AUWi Flag 0.29 (0-2.49); RBC/HPF GREATER THAN 50-TNTC HPF (0-3); Squamous Epithelial None Seen HPF (0-3); Yeast-AUWi Flag 21.3 (0-25.0)
--- NOTE | 2017-12-09 18:12 | RAD ---
PORTABLE CHEST ONE VIEW 12/09/17 at 4:29 p.m. HISTORY: Cough. FINDINGS: Comparison is made with exam of 11/28/17. Heart size is enlarged. The aorta is tortuous. Left sided pacemaker device remains in place. New biba silar infiltrates are seen with small effusions. IMPRESSION: Findings are suspicious for pneumonia. POS: [facility]
[2017-12-09] MEDS ORDERED: Vancomycin HCl 750 MG in Sodium Chloride 0.9% 250 ML 250 ML IVPB SCH (19:15)
[2017-12-09] MEDS ORDERED: cefTRIAXone\\ROCEPHIN 1 GM in Sodium Chloride 0.9% 100 ML IVPB SCH (19:30)
[2017-12-09] MEDS ORDERED: VANCOMYCIN IVPB PRN (19:33)
[2017-12-09] MEDS ORDERED: Azithromycin 500 MG in Sodium Chloride 0.9% 250 ML 250 ML IVPB SCH (21:00)
[2017-12-09] MEDS: Acetaminophen 325 MG TAB PO PRN (21:00)
[2017-12-09] MEDS ORDERED: Famotidine 20 MG TAB PO SCH (21:00)
[2017-12-09] MEDS: Sodium Chloride 0.9% 1,000 ML IV SCH (21:38)
[2017-12-09] MEDS: cefTRIAXone\\ROCEPHIN 1 GM, Syringe 0.4 ML in Sterile Water 9.6 ML SLOW IVP SCH (21:38)
--- NOTE | 2017-12-09 21:47 | HP ---
PRIMARY CARE PHYSICIAN: Devi Cardenas M.D. CHIEF COMPLAINT: Weakness for several days. 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 The patient states that since then she has been progress ively weak and [facility]. At the time of my evalua tion, the patient wants to know if she can go home. In the emergency department, patient was found to have acute kidney injury with a creatinine of 4.42. Discussed with the patient that she does have a new severe acute kidney injury and will likely be b shane managed on an inpatient basis for the time being rather than outpatient basis. At this point i n time, the patient agrees to an inpatient evaluation and hospitalization. REVIEW OF SYSTEMS: As per HPI. Constitutional: The patient denies any recent weight changes. Juan es any recent issues with fevers or chills. HEENT: Denies any headaches, vision changes, lightheade dness or dizziness. Cardiovascular: Denies any chest pressure, chest pain, left-sided, arm numbness or tingling. Respiratory: Denies any issues with shortness of breath, dyspnea with exertion, simpl y easy fatigability. No recent upper respiratory infection. Denies any cough, congestion. Gastroin testinal: Denies any nausea, vomiting. Reports having a good appetite and being able to eat most of her meals as per her usual. Denies any abdominal pain, diarrhea or constipation. Genitourinary: S he states that she was diagnosed with a urinary tract infection several days ago, but denies any over t dysuria. Denies any changes in urinary frequency quantity or quality. Musculoskeletal: Denies an y new myalgias or arthralgias. Patient is a marginal historian and I questioned the accuracy of the entirety of the review of system s, but she does not answer appropriately as per above. PAST MEDICAL HISTORY: As per the HPI, significant for, 1. COPD, on room air. 2. Hypertension. 3. Bilateral lower extremity DVTs, on chronic anticoagulation with Eliquis. 4. History of nephrolithiasis. 5. Gastroesophageal reflux disease. PAST SURGICAL HISTORY: Status post cholecystectomy, status post appendectomy, status post total abdo wing hysterectomy, status post right total hip replacement, and status post tonsillectomy. HOME MEDICATIONS: The patient has a poor recall of her home medication, but as listed. She has the following: Trazodone 50 mg p.o. at bedtime, ropinirole 0.5 mg q.p.m., clonidine 0.1 mg p.o. q.4 hour s p.r.n., tolterodine 2 mg p.o. b.i.d., tamsulosin 0.4 mg at bedtime 2 tab p.o. b.i.d., polyethylene glycol 17 grams p.o. daily, multivitamin 1 tab p.o. daily, (morphine ER) MS Contin 2 tabs p.o. p.r.n. , loratadine 10 mg p.o. daily, levothyroxine 137 mcg p.o. daily, DuoNeb q.4 hours p.r.n., ferrous sul fate 325 mg p.o. daily, famotidine 20 mg p.o. b.i.d., diltiazem 100 mg p.o. daily, cholecalciferol 10 00 mg p.o. daily, cephalexin 250 mg p.o. t.i.d. I suppose that this is the patient's recent new anti biotic for her urinary tract infection. Calcium carbonate, vitamin D3 one tab p.o. daily, apixaban 2 .5 mg p.o. b.i.d., amlodipine 5 mg p.o. daily, acetaminophen 650 mg p.o. q.6 hours p.r.n., alprazolam 0.25 mg p.o. daily. ALLERGIES: No known drug allergies. FAMILY HISTORY: The patient is unable to recall any known family history of kidney issues cardiac is sues or strokes. SOCIAL HISTORY: The patient currently resides at [facility]. She states that she took [employer] r is served to her. Denies any usage of tobacco, alcohol or illicit drug use. Endorses that she wis hes to be FULL CODE. She states that one of her sons who lives in [place] would be her primary [facility] decision maker if she is unable to make any medical decisions, but she would like to have all 5 o f her children involved in making medical decisions for her if she is unable to make her own medical decisions. PHYSICAL EXAMINATION: GENERAL: Patient is awake, alert, conversant, oriented x3 as discussed above. HEENT: Normocephalic, atraumatic. Equal ocular motions are intact, moist mucous membranes. CARDIOVASCULAR: S1, S2. No murmurs, rubs or gallops. Pulses 2+ bilateral upper extremities, no pit ting pedal edema. RESPIRATORY: Reasonable air movement. No wheezes, rales or rhonchi. No conversational dyspnea. LUNGS: Clear to auscultation bilaterally. ABDOMEN: Positive bowel sounds, soft, nontender to palpation. NEUROLOGIC: Moving all 4 extremities, though able to self-reposition in the bed without difficulty o r assistance. LABORATORY DATA AND IMAGING: WBC 9.3, hemoglobin 10.9, hematocrit 35.1, platelets 195. PT 18.4, INR 1.5. Sodium 129, potassium 4.2, chloride 95, bicarbonate 20, BUN 82, creatinine 4.42, glucose 125. Serum osmolality 298, magnesium 2.7, calcium 8.5, total bilirubin 0.5, AST 48, ALT 42, alkaline phos phatase 170, creatine kinase 18, troponin less than 0.01. BNP 424, total protein 5.8, albumin 3.3, l ipase 7. TSH 2.82. UA significant for 30 protein, large blood, large leukocyte esterase, greater th an 50 rbc's, greater than 50 wbcs. Chest x-ray on 12/09/2017. Impression, "findings are suspicious for pneumonia." ASSESSMENT AND PLAN: An 87-year-old female who presented with generalized complaint of weakness. 1. Weakness, likely multifactorial. The patient gives a history of recent illness including urinary tract infection which certainly could be contributory and appears to be continued at this point in t joy. We will obtain a urine culture which appears to have been ordered already in the emergency depa rtment and is pending processing. The patient also has noted acute kidney injury. Nephrology has be en called from the emergency department. The patient will continue on her home regimen holding of he r nephrotoxic regimen. Bilateral renal ultrasound. Serial BMP. Continue IV fluid normal saline at 100. 2. Question for continued urinary tract infection. IV ceftriaxone. 3. Question of pneumonia on chest x-ray. Patient will need to be on vancomycin and azithromycin for coverage of possible healthcare-acquired organisms. 4. Chronic obstructive pulmonary disease appears to be stable. 5. Hypertension, appears to be stable. 6. History of bilateral deep venous thrombosis. Continue on home Eliquis. 7. Admit the patient to inpatient medical/surgical. FULL code as discussed above. Thank you for asking me to care for the patient. Questions or concerns, please contact me at [facility].
[2017-12-09 23:26] VITALS: BMI 26.2
[2017-12-09] MEDS: Ondansetron ODT 4 MG TAB SL PRN (23:44)
[2017-12-10 05:00] LABS: #Eosinphils 0.1 thou/uL (0.0-0.7); #Lymphocytes 0.6 thou/uL (1.20-3.40); #Monocytes 1.1 thou/uL (0.11-0.59); #Neutrophils 5.6 thou/uL (1.40-6.50); %Eosinophils 1.6 % (0.0-10.0); %Lymphocytes 8.4 % (21.0-51.0); %Monocytes 14.9 % (0.0-10.0); %Neutrophils 75.1 % (42.0-75.0); Hemoglobin 10.2 g/dL (12.0-16.0); Mean Corpuscular HGB CONC 31.9 g/dL (32.0-36.0); Mean Corpuscular Hemoglobin 30.7 pg (27.0-31.0); Mean Corpuscular Volume 96.2 fl (81.0-99.0); Mean Platelet Volume 10.2 fL (7.4-10.4); Platelet Count 156 thou/uL (130-400); RBC Distribution Width 16.4 % (11.5-14.5); Red Blood Cell (RBC) Count 3.32 mill/uL (4.20-5.40); White Blood Cell (WBC) Count 7.5 thou/uL (4.8-10.8)
[2017-12-10 05:09] LABS: Anion Gap 15 mmol/L (10-20); BUN (Urea Nitrogen) 78 mg/dL (9.8-20.1); Calc. Creatinine Clearance 10 mL/min (70-130); Calcium 7.9 mg/dL (7.8-10.44); Carbon Dioxide 21 mmol/L (23-31); Chloride 101 mmol/L (98-107); Estimated GFR-MDRD 11; Glucose 110 mg/dL (83-110); Potassium 4.6 mmol/L (3.5-5.1); Sodium 132 mmol/L (136-145)
[2017-12-10] MEDS: Ondansetron ODT 4 MG TAB SL PRN ×3 (05:47→18:38)
[2017-12-10] MEDS: Acetaminophen 325 MG TAB PO PRN ×3 (05:47→21:30)
[2017-12-10] MEDS: Sodium Chloride 0.9% 1,000 ML IV SCH ×2 (05:49→13:15)
--- NOTE | 2017-12-10 09:55 | ULT ---
RENAL ULTRASOUND: DATE: 12/10/17. PROVIDED CLINICAL HISTORY: Acute kidney injury. FINDINGS: Comparison 04/03/16. The right kidney measures about 8.8 x 4 x 4.1 cm and demonstrates no evidence for hydronephrosis or m ass. The left kidney measures about 9.1 x 4.4 x 4.5 cm and demonstrates an extrarenal pelvis without defin ite evidence for hydronephrosis. Bilateral increased echogenicity to the renal parenchyma suggests medial renal disease. The urinary bladder appears unremarkable. Echogenic shadowing focus involving the right kidney suggests renal ca lculus. IMPRESSION: No evidence for hydronephrosis. POS: CARMEN
--- NOTE | 2017-12-10 10:14 | PDOC.PN ---
- Subjective Encounter Start Date: 12/10/17 Encounter Start Time: 10:12 cc: weakness Sub: Pt says she feels better - Objective Resuscitation Status: Resuscitation Status FULL:Full Resuscitation Vital Signs & Weight: Vital Signs (12 hours) Temp Pulse Resp BP Pulse Ox 12/10/17 08:00 98.3 F 94 18 128/67 96 12/10/17 04:00 98.2 F 77 16 123/69 96 12/10/17 00:00 98.2 F 83 18 127/65 95 Weight Weight 134 lb 3.2 oz I&O: 12/09/17 12/10/17 12/11/17 06:59 06:59 06:59 Intake Total 1400.9 Balance 1400.9 Result Diagrams: 12/10/17 04:32 12/10/17 04:32 Phys Exam - Physical Examination Constitutional: NAD HEENT: moist MMs Neck: no JVD Respiratory: no wheezing, no rales, no rhonchi Cardiovascular: RRR, no significant murmur, no rub Gastrointestinal: soft, non-tender Musculoskeletal: no edema Neurological: non-focal, moves all 4 limbs Psychiatric: normal affect, A&O x 3 Dx/Plan - Plan Pt is 87 yrs old female now admitted to hospital due to weakness 1. MONA 2. UTI 3. Pneumonia 4. H/O Bilateral DVT 5. COPD 6. H/O HTN Plan: 1. Creatinine improving slowly. Repeat BMP in am Continue iv fluids 2. Continue rocephin 1gm q 24hrs Continue azithromycin. 3. Continue anticoagulation and breathing treatments 4. Continue bp meds. Monitor bp closely. Case d/w pt & RN
[2017-12-10] MEDS ORDERED: Bisacodyl 10 MG SUPP PR PRN (11:58)
[2017-12-10] MEDS ORDERED: Ondansetron ODT 4 MG TAB PO PRN (11:58)
[2017-12-10] MEDS: cefTRIAXone\\ROCEPHIN 1 GM, Syringe 0.4 ML in Sterile Water 9.6 ML SLOW IVP SCH (21:19)
[2017-12-10] MEDS: TROSPIUM 20 MG TABLET PO SCH (21:20)
[2017-12-10] MEDS: traZODone HCl 50 MG TAB PO SCH (21:20)
[2017-12-10] MEDS: Apixaban 2.5 MG TAB PO SCH (21:20)
[2017-12-10] MEDS: Tamsulosin HCl 0.4 MG CAP PO SCH (21:20)
[2017-12-10] MEDS: Famotidine 20 MG TAB PO SCH (21:21)
[2017-12-10 21:44] LABS: Vancomycin, Random 7.2 ug/mL (See Comment)
[2017-12-10] MEDS ORDERED: Vancomycin HCl 750 MG in Sodium Chloride 0.9% 250 ML 250 ML IVPB SCH (22:00)
[2017-12-11] MEDS: Azithromycin 500 MG in Sodium Chloride 0.9% 250 ML 250 ML IVPB SCH (00:13)
[2017-12-11] MEDS: Sodium Chloride 0.9% 1,000 ML IV SCH ×2 (01:14→12:33)
[2017-12-11 04:37] LABS: #Eosinphils 0.2 thou/uL (0.0-0.7); #Lymphocytes 0.6 thou/uL (1.20-3.40); #Monocytes 0.8 thou/uL (0.11-0.59); #Neutrophils 4.6 thou/uL (1.40-6.50); %Basophils 0.2 % (0.0-1.0); %Eosinophils 2.5 % (0.0-10.0); %Lymphocytes 9.2 % (21.0-51.0); %Monocytes 12.6 % (0.0-10.0); %Neutrophils 75.5 % (42.0-75.0); Hemoglobin 9.7 g/dL (12.0-16.0); Mean Corpuscular HGB CONC 31.6 g/dL (32.0-36.0); Mean Corpuscular Hemoglobin 30.5 pg (27.0-31.0); Mean Corpuscular Volume 96.4 fl (81.0-99.0); Mean Platelet Volume 7.5 fL (7.4-10.4); Platelet Count 256 thou/uL (130-400); RBC Distribution Width 16.2 % (11.5-14.5); Red Blood Cell (RBC) Count 3.19 mill/uL (4.20-5.40); White Blood Cell (WBC) Count 6.1 thou/uL (4.8-10.8)
[2017-12-11 05:12] LABS: Anion Gap 15 mmol/L (10-20); BUN (Urea Nitrogen) 54 mg/dL (9.8-20.1); Calc. Creatinine Clearance 13 mL/min (70-130); Calcium 7.6 mg/dL (7.8-10.44); Carbon Dioxide 19 mmol/L (23-31); Chloride 104 mmol/L (98-107); Estimated GFR-MDRD 14; Glucose 92 mg/dL (83-110); Potassium 4.4 mmol/L (3.5-5.1); Sodium 134 mmol/L (136-145)
[2017-12-11] MEDS: Levothyroxine Sodium 25 MCG TAB PO SCH (06:13)
[2017-12-11] MEDS: Levothyroxine Sodium 112 MCG TAB PO SCH (06:13)
[2017-12-11] MEDS: Acetaminophen 325 MG TAB PO PRN ×3 (06:13→16:39)
[2017-12-11] MEDS: Ondansetron ODT 4 MG TAB SL PRN ×3 (08:09→22:20)
[2017-12-11] MEDS: Ferrous Sulfate 325 MG TAB PO SCH (08:12)
[2017-12-11] MEDS: Multivit, Therapeutic 1 TAB PO SCH (08:12)
[2017-12-11] MEDS: Famotidine 20 MG TAB PO SCH (08:12)
[2017-12-11] MEDS: ALPRAZolam 0.25 MG TAB PO SCH (08:12)
[2017-12-11] MEDS ORDERED: Levothyroxine Sodium 112 MCG TAB PO SCH (09:00)
--- NOTE | 2017-12-11 11:57 | CON ---
DATE OF CONSULTATION: 12/10/2017 REASON FOR CONSULTATION: Elevated creatinine. HISTORY OF PRESENT ILLNESS: This is a very pleasant 87-year-old female being seen at the [facility], presented to the hospital with weakness for several days. The patient at this time denies an y headache, numbness, tingling or swelling in her legs. The patient's creatinine was 4.4 on admissio n which has improved to 3.9. The patient's prior baseline creatinine 11/18/2017 was 1.6 to 2.1 with multiple episodes of acute kidney injury. PAST MEDICAL HISTORY: COPD, hypertension, acute kidney injury, history of nephrolithiasis, history o f obstructive uropathy, history of cholecystectomy, appendectomy, hip replacement, hysterectomy, tons illectomy. HOME MEDICATIONS: List reviewed. HOSPITAL MEDICATIONS: List reviewed. ALLERGIES: Reviewed. REVIEW OF SYSTEMS: Fifteen point review of systems was performed and negative except for positives n oted above. GENERAL: Weakness- HEAD: Headache- NECK: No swelling or lumps. NOSE: No epistaxis or discharge. EYES: No diplopia or pain. RESPIRATORY: Dyspnea- CARDIOVASCULAR: Chest pain- GASTROINTESTINAL: Nausea- /[employer]: Hematuria- MUSCULOSKELETAL: No joint pain. NEUROPSYCHIATIC SYSTEMS: No suicidal ideation. No ideation. SKIN: Denies any rash or ulcer. CONSTITUTIONAL: No fever or chills. PHYSICAL EXAMINATION: GENERAL: Patient is awake, alert. VITAL SIGNS: Afebrile, pulse 75, breathing 16, blood pressure 132/77. OBJECTIVE: See above. Awake, alert, in no acute distress. GENERAL APPEARANCE AND MENTAL STATUS: Fair. HEAD/NECK: Normocephalic. Atraumatic. EYES: EOMI. No deformity. EARS: Clear. No ulcers. NOSE: Intact. No lesions. MOUTH: Clear. No discharge. THROAT: Clear. No exudate. LUNGS: Clear. No crackles. CARDIAC: S1, S2. No rub. ABDOMEN: Benign. BS+. GENITALIA/RECTUM: [place] absent. BACK/EXTREMITIES: Edema 0+ Ulcer- NEUROLOGICAL: Alert and motor intact. SKIN: Rash- Bruise- LYMPHATICS: Edema- Ulcer- LABORATORY DATA: Creatinine 3.9. Renal ultrasound negative. ASSESSMENT AND RECOMMENDATIONS: 1. Acute kidney injury/chronic kidney disease, improving. Continue hydration. 2. Hypertension, stable. 3. Anemia, stable. 4. Medication based on glomerular filtration rate are appropriate. No indication for dialysis at this time.
[2017-12-11] MEDS: Apixaban 2.5 MG TAB PO SCH ×2 (12:32→22:19)
--- NOTE | 2017-12-11 12:56 | PRG ---
DATE OF SERVICE: 12/11/2017 SUBJECTIVE: Patient was seen and examined at bedside and overnight events noted. Patient denies any shortness of breath or chest pain or palpitation. No history of nausea or vomiting or diarrhea or fev er or chills or cramps. OBJECTIVE: General: This is an elderly female in no apparent distress. Vital Signs: Temperature 98.3, pulse 90, respiratory rate 18, and blood pressure 138/74. HEENT: Atraumatic, normocephalic, Oral mucosa is moist. Neck: Supple. Cardiovascular: S1 and S2 heard. Rate and rhythm regular. Respiratory: Wheezes present. Gastrointestinal: Abdomen is soft. Musculoskeletal: No tenderness. No edema. Dermatologic: No skin rash. Neurologic: Alert and awake and oriented X3. No focal neurologic deficits. Moving all the extremitie s. Psychiatric: Mood and affect normal. LABORATORY DATA: Potassium is 4.4, creatinine is 3.08 from 3.93, and 4.4 on admission. ASSESSMENT AND PLAN: 1. Acute kidney injury on chronic kidney disease with baseline creatinine of 1.6 and chronic kidney disease stage 3. Renal function with good improvement. Continue with current management. Avoid nep hrotoxins. We will follow. 2. Chronic kidney disease, stage 3. 3. Hyponatremia, better. 4. Metabolic acidosis, stable. 5. Anemia of chronic disease. 6. Edema, controlled. 7. Hypertension, stable. 8. Continue current management and we will follow.
--- NOTE | 2017-12-11 18:21 | PDOC.PN ---
- Subjective Encounter Start Date: 12/11/17 Encounter Start Time: 18:20 Subjective: f/u for MONA/CKD III with improving renal function with IVF's. Pt feels -: better overall. Appetite ok. Voiding regularly. - Objective Resuscitation Status: Resuscitation Status FULL:Full Resuscitation MAR Reviewed: Yes Vital Signs & Weight: Vital Signs (12 hours) Temp Pulse Pulse Resp BP BP BP 12/11/17 16:00 98.1 F 95 18 134/70 12/11/17 12:29 97 152/77 H 12/11/17 11:00 97.6 F 97 16 161/89 H 12/11/17 09:51 98 141/66 H 12/11/17 08:00 98.0 F 98 16 12/11/17 07:00 98.5 F 98 16 149/75 H Pulse Ox Pulse Ox 12/11/17 16:00 96 12/11/17 12:29 12/11/17 11:00 97 12/11/17 09:51 96 12/11/17 08:00 100 12/11/17 07:00 96 Weight Weight 134 lb 3.2 oz I&O: 12/10/17 12/11/17 12/12/17 06:59 06:59 06:59 Intake Total 1400.9 3289 Balance 1400.9 3289 Result Diagrams: 12/11/17 03:41 12/11/17 03:41 Additional Labs: Microbiology 12/10/17 18:05 Stool Escherichia coli 0157 Culture - Final 12/10/17 18:05 Stool Campylobacter Antigen Assay - Final 12/10/17 18:05 Stool Shiga Toxin Test - Final 12/10/17 18:05 Stool C. difficile GDH Antigen & Toxins - Final 12/09/17 16:37 Urine Straight Catheter Urine Culture - Final Yeast species 12/10/17 18:05 Stool Stool Culture - Preliminary Laboratory Tests 12/09/17 12/09/17 12/09/17 16:18 16:18 16:18 Hgb 10.9 L Sodium 129 L Creatinine 4.42 H B-Natriuretic Peptide 424.3 H TSH 3rd Generation 12/09/17 12/10/17 12/10/17 16:18 04:32 04:32 Hgb 10.2 L Sodium 132 L Creatinine 3.93 H B-Natriuretic Peptide TSH 3rd Generation 2.8202 Radiology Reviewed by me: Yes (Renal sono - no hydronephrosis) Phys Exam - Physical Examination Constitutional: NAD smiling, alert, responsive HEENT: PERRLA, moist MMs, sclera anicteric, oral pharynx no lesions Neck: no nodes, no JVD, supple few basilar rhonchi Respiratory: no wheezing, no rales, clear to auscultation bilateral S1, S2 Cardiovascular: RRR, no significant murmur, no rub, gallop Gastrointestinal: soft, non-tender, no distention, positive bowel sounds Musculoskeletal: no edema, pulses present Neurological: non-focal, normal sensation, moves all 4 limbs Psychiatric: normal affect, A&O x 3 Skin: no rash, normal turgor, cap refill <2 seconds Dx/Plan (1) MONA (acute kidney injury) Code(s): N17.9 - ACUTE KIDNEY FAILURE, UNSPECIFIED Status: Acute Comment: Improved with IVF's, avoid nephrotoxic meds and contrast media, serial creatinine (2) CKD (chronic kidney disease) stage 3, GFR 30-59 ml/min Status: Chronic Comment: See #1 above, not currently back to baseline renal function (3) Community acquired pneumonia Code(s): J18.9 - PNEUMONIA, UNSPECIFIED ORGANISM Status: Acute Qualifiers: Laterality: unspecified laterality Qualified Code(s): J18.9 - Pneumonia, unspecified organism Comment: bibasilar infiltrates on initial PCXR, suspect gm + cocci, continue Zithromax and Rocephin, O2 prn, Duonebs (4) COPD (chronic obstructive pulmonary disease) Status: Chronic Qualifiers: Comment: No evidence of COPD exacerbation, O2 prn, Duonebs (5) HTN (hypertension) Code(s): I10 - ESSENTIAL (PRIMARY) HYPERTENSION Status: Chronic Qualifiers: Hypertension type: essential hypertension Comment: Continue Diltiazem 240mg po daily, serial BP monitoring - Plan continue antibiotics, PT/OT, social media marketing specialist, respiratory therapy, out of bed/ ambulate, DVT proph w/SCDs Stable overall -: Continue IV NS 100ml/h -: Continue Rocephin and Zithromax, convert to single agent in am -: PT for mobilization -: AM lab: BMP * Likely home in 24-48h
[2017-12-11 21:19] LABS: Vancomycin, Random 12.3 ug/mL (See Comment)
[2017-12-11] MEDS ORDERED: Vancomycin HCl 500 MG in Sodium Chloride 0.9% 100 ML IVPB SCH (22:00)
[2017-12-11] MEDS: TROSPIUM 20 MG TABLET PO SCH (22:19)
[2017-12-11] MEDS: traZODone HCl 50 MG TAB PO SCH (22:19)
[2017-12-11] MEDS: Tamsulosin HCl 0.4 MG CAP PO SCH (22:19)
[2017-12-11] MEDS: cefTRIAXone\\ROCEPHIN 1 GM, Syringe 0.4 ML in Sterile Water 9.6 ML SLOW IVP SCH (22:20)
[2017-12-12] MEDS: Azithromycin 500 MG in Sodium Chloride 0.9% 250 ML 250 ML IVPB SCH (00:05)
[2017-12-12] MEDS: Acetaminophen 325 MG TAB PO PRN ×4 (01:39→22:23)
[2017-12-12] MEDS: Sodium Chloride 0.9% 1,000 ML IV SCH ×3 (01:39→15:32)
[2017-12-12 05:20] LABS: #Eosinphils 0.2 thou/uL (0.0-0.7); #Lymphocytes 0.6 thou/uL (1.20-3.40); #Monocytes 0.7 thou/uL (0.11-0.59); #Neutrophils 3.9 thou/uL (1.40-6.50); %Basophils 0.1 % (0.0-1.0); %Eosinophils 2.8 % (0.0-10.0); %Lymphocytes 11.9 % (21.0-51.0); %Monocytes 12.1 % (0.0-10.0); %Neutrophils 73.1 % (42.0-75.0); Hemoglobin 9.9 g/dL (12.0-16.0); Mean Corpuscular Hemoglobin 30.8 pg (27.0-31.0); Mean Corpuscular Volume 96.3 fl (81.0-99.0); Mean Platelet Volume 8.5 fL (7.4-10.4); Platelet Count 264 thou/uL (130-400); RBC Distribution Width 16.4 % (11.5-14.5); Red Blood Cell (RBC) Count 3.22 mill/uL (4.20-5.40); White Blood Cell (WBC) Count 5.4 thou/uL (4.8-10.8)
[2017-12-12] MEDS: Levothyroxine Sodium 25 MCG TAB PO SCH (05:39)
[2017-12-12] MEDS: Levothyroxine Sodium 112 MCG TAB PO SCH (05:39)
[2017-12-12 05:56] LABS: Anion Gap 13 mmol/L (10-20); BUN (Urea Nitrogen) 40 mg/dL (9.8-20.1); Calc. Creatinine Clearance 16 mL/min (70-130); Calcium 7.6 mg/dL (7.8-10.44); Carbon Dioxide 19 mmol/L (23-31); Chloride 109 mmol/L (98-107); Estimated GFR-MDRD 19; Glucose 99 mg/dL (83-110); Potassium 4.1 mmol/L (3.5-5.1); Sodium 137 mmol/L (136-145)
[2017-12-12] MEDS: Ferrous Sulfate 325 MG TAB PO SCH (07:52)
[2017-12-12] MEDS: ALPRAZolam 0.25 MG TAB PO SCH (07:52)
[2017-12-12] MEDS: Ondansetron ODT 4 MG TAB SL PRN ×3 (07:53→22:23)
[2017-12-12] MEDS: Multivit, Therapeutic 1 TAB PO SCH (07:53)
[2017-12-12] MEDS: Apixaban 2.5 MG TAB PO SCH ×2 (07:53→22:23)
[2017-12-12] MEDS: Famotidine 20 MG TAB PO SCH (07:53)
--- NOTE | 2017-12-12 08:56 | PRG ---
Patient Name: RAJWINDER RENAE Date of service: 12/12/2017 Subjective: Patient was seen and examined at bedside and overnight events noted. Patient denies any shortness of breath or chest pain or palpitation. No history of nausea or vomiting or diarrhea or fever or chills or cramps. Objective: General: This is a well-built female in no apparent distress. Vital signs: Temperature 98.2, pulse 100, respiratory 18, blood pressure 176/82. HEENT: Atraumatic, normocephalic. Oral mucosa is moist. Neck: Supple. Cardiovascular: S1 S2 heard. Rate and rhythm regular. Respiratory: Clear to auscultation. Gastrointestinal: Abdomen is soft. Musculoskeletal: No tenderness. No edema. Dermatologic: No skin rash. Neurologic: Alert and awake and oriented X3. No focal neurologic deficits. Moving all the extremit ies. Psychiatric: Mood and affect normal. LABORATORY DATA: Potassium is 4.1, BUN 40, creatinine is 2.4 from 3.08. ASSESSMENT AND PLAN: 1. Acute kidney injury on chronic kidney disease stage 3 with baseline creatinine 1.6, creatinine is better at 2.4 today. Continue supportive care and avoid nephrotoxins. We will follow. 2. Chronic kidney stage 3. 3. Hyponatremia, better. 4. Metabolic acidosis. 5. Edema. 6. Hypertension, stable. Overall, renal function with slow improvement. Will continue supportive care with avoidance of nephr otoxins and close monitoring of renal function.
--- NOTE | 2017-12-12 12:08 | PDOC.PN ---
- Subjective Encounter Start Date: 12/12/17 Encounter Start Time: 12:05 Subjective: f/u for MONA/CKD III on IV NS with improving renal function. Breathing -: improved O2 sats in mid-90's on 2L/min NC. Currently tx with Zithromax -: and Rocephin for suspected CAP. - Objective Resuscitation Status: Resuscitation Status FULL:Full Resuscitation MAR Reviewed: Yes Vital Signs & Weight: Vital Signs (12 hours) Temp Pulse Resp BP BP Pulse Ox 12/12/17 08:40 100 16 94 L 12/12/17 07:53 106 H 176/82 H 12/12/17 07:27 98.2 F 106 H 20 176/82 H 94 L Weight Weight 134 lb 3.2 oz I&O: 12/11/17 12/12/17 12/13/17 06:59 06:59 06:59 Intake Total 3289 1800 Balance 3289 1800 Result Diagrams: 12/12/17 04:13 12/12/17 04:13 Additional Labs: Microbiology 12/10/17 18:05 Stool Escherichia coli 0157 Culture - Final 12/10/17 18:05 Stool Campylobacter Antigen Assay - Final 12/10/17 18:05 Stool Shiga Toxin Test - Final 12/10/17 18:05 Stool C. difficile GDH Antigen & Toxins - Final 12/09/17 16:37 Urine Straight Catheter Urine Culture - Final Yeast species 12/10/17 18:05 Stool Stool Culture - Preliminary Laboratory Tests 12/09/17 12/09/17 12/09/17 16:18 16:18 16:18 Hgb 10.9 L Sodium 129 L Creatinine 4.42 H B-Natriuretic Peptide 424.3 H TSH 3rd Generation 12/09/17 12/10/17 12/10/17 16:18 04:32 04:32 Hgb 10.2 L Sodium 132 L Creatinine 3.93 H B-Natriuretic Peptide TSH 3rd Generation 2.8202 Phys Exam - Physical Examination Constitutional: NAD alert, responsive HEENT: PERRLA, moist MMs, sclera anicteric, oral pharynx no lesions Neck: no nodes, no JVD, supple few scattered rhonchi Respiratory: no wheezing, no rales, clear to auscultation bilateral S1, S2 Cardiovascular: RRR, no significant murmur, no rub, gallop Gastrointestinal: soft, non-tender, no distention, positive bowel sounds Musculoskeletal: no edema, pulses present Neurological: non-focal, normal sensation, moves all 4 limbs Psychiatric: normal affect, A&O x 3 Skin: no rash, normal turgor, cap refill <2 seconds Dx/Plan (1) MONA (acute kidney injury) Code(s): N17.9 - ACUTE KIDNEY FAILURE, UNSPECIFIED Status: Acute Comment: Improved with IVF's, avoid nephrotoxic meds and contrast media, serial creatinine, decrease IVF's 50ml/h (2) CKD (chronic kidney disease) stage 3, GFR 30-59 ml/min Status: Chronic Comment: See #1 above, not currently back to baseline renal function (3) Community acquired pneumonia Code(s): J18.9 - PNEUMONIA, UNSPECIFIED ORGANISM Status: Acute Qualifiers: Laterality: unspecified laterality Qualified Code(s): J18.9 - Pneumonia, unspecified organism Comment: bibasilar infiltrates on initial PCXR, suspect gm + cocci, continue Zithromax and Rocephin, O2 prn, Duonebs, transition to po abx in 24h (4) COPD (chronic obstructive pulmonary disease) Status: Chronic Qualifiers: Comment: No evidence of COPD exacerbation, O2 prn, Duonebs, add Dulera 2 puffs BID (5) HTN (hypertension) Code(s): I10 - ESSENTIAL (PRIMARY) HYPERTENSION Status: Chronic Qualifiers: Hypertension type: essential hypertension Comment: Continue Diltiazem 240mg po daily, serial BP monitoring - Plan continue antibiotics, PT/OT, licensed social worker, respiratory therapy, out of bed/ ambulate, DVT proph w/SCDs Stable overall -: Decrease IVF 50ml/h -: Add Dulera 2 puffs BID -: Continue Rocephin and Zithromax another 24h then convert to po -: OOB/ambulate * Likely home in 24-48h * AM lab: BMP
[2017-12-12] MEDS: Mometasone/Formoterol 120 PUFF INHALER INH SCH ×2 (15:10→19:53)
[2017-12-12] MEDS: Hydrocortisone/Pramoxine (Proctofoam HC) 10 GM BOX TOP SCH ×2 (15:42→22:26)
[2017-12-12] MEDS: TROSPIUM 20 MG TABLET PO SCH (22:23)
[2017-12-12] MEDS: traZODone HCl 50 MG TAB PO SCH (22:23)
[2017-12-12] MEDS: Tamsulosin HCl 0.4 MG CAP PO SCH (22:23)
[2017-12-12] MEDS: cefTRIAXone\\ROCEPHIN 1 GM, Syringe 0.4 ML in Sterile Water 9.6 ML SLOW IVP SCH (22:29)
[2017-12-12 22:30] LABS: Vancomycin, Random 9.9 ug/mL (See Comment)
[2017-12-12] MEDS ORDERED: Vancomycin HCl 750 MG in Sodium Chloride 0.9% 250 ML 250 ML IVPB SCH (23:00)
[2017-12-13] MEDS: Azithromycin 500 MG in Sodium Chloride 0.9% 250 ML 250 ML IVPB SCH (00:34)
[2017-12-13] MEDS: Levothyroxine Sodium 112 MCG TAB PO SCH (03:18)
[2017-12-13] MEDS: Levothyroxine Sodium 25 MCG TAB PO SCH (03:18)
[2017-12-13] MEDS: Acetaminophen 325 MG TAB PO PRN ×2 (03:18→20:19)
[2017-12-13 05:31] LABS: Anion Gap 15 mmol/L (10-20); BUN (Urea Nitrogen) 27 mg/dL (9.8-20.1); Calc. Creatinine Clearance 20 mL/min (70-130); Carbon Dioxide 18 mmol/L (23-31); Chloride 110 mmol/L (98-107); Estimated GFR-MDRD 24; Glucose 105 mg/dL (83-110); Potassium 4.5 mmol/L (3.5-5.1); Sodium 138 mmol/L (136-145)
[2017-12-13] MEDS: Mometasone/Formoterol 120 PUFF INHALER INH SCH ×2 (06:45→18:41)
[2017-12-13] MEDS: Famotidine 20 MG TAB PO SCH (08:01)
[2017-12-13] MEDS: ALPRAZolam 0.25 MG TAB PO SCH (08:01)
[2017-12-13] MEDS: Ferrous Sulfate 325 MG TAB PO SCH (08:01)
[2017-12-13] MEDS: Apixaban 2.5 MG TAB PO SCH ×2 (08:01→20:19)
[2017-12-13] MEDS: Sodium Chloride 0.9% 1,000 ML IV SCH (08:01)
[2017-12-13] MEDS: Multivit, Therapeutic 1 TAB PO SCH (08:01)
[2017-12-13] MEDS: Hydrocortisone/Pramoxine (Proctofoam HC) 10 GM BOX TOP SCH ×3 (08:02→20:19)
[2017-12-13] MEDS: Ondansetron ODT 4 MG TAB SL PRN ×2 (08:13→18:03)
[2017-12-13] MEDS ORDERED: Furosemide 20 MG/2 ML VIAL SLOW IVP SCH (10:15)
--- NOTE | 2017-12-13 11:14 | PRG ---
DATE OF SERVICE: 12/13/2017 SUBJECTIVE: The patient was seen and examined at bedside and son was also at the bedside. The son i s a little bit upset that she is not having good sleep for the last 2 days. The patient is complaini ng of shortness of breath while lying flat. She is currently on IV fluids. PHYSICAL EXAMINATION: GENERAL: This is an elderly white female in mild distress. VITAL SIGNS: Temperature 98.7, pulse 102, respiratory 18, blood pressure 158/79 HEENT: Atraumatic, normocephalic. NECK: Supple, no masses. CARDIOVASCULAR: S1, S2 heard. Normal, rate and rhythm. RESPIRATORY: Reduced breath sounds at the bases. GASTROINTESTINAL: Abdomen is soft. MUSCULOSKELETAL: No edema. NEUROLOGIC: Alert and awake, moving all the extremities. PSYCHIATRIC: Mood and affect normal. LABORATORY DATA: Potassium 4.5, BUN 27, creatinine is 2.27. ASSESSMENT AND PLAN: 1. Acute kidney injury most likely from volume depletion with good improvement in her creatinine wit h IV hydration. The patient is feeling slightly fluid overloaded and family would like to see Cardio logy and said they follow up with Dr. Soto. I did discuss the case with Dr. Nolan and the plan is t o consult Dr. Soto and also will stop IV fluids and give her a dose of Lasix today. Monitor for si gns of fluid overload. 2. Chronic kidney disease stage 3 with improvement in creatinine. The patient is very frail and cohn s complications given her cardiac and renal status. 3. Hyponatremia, limit fluid intake as well as ____ ____, ____, stop IV fluids, monitor renal functi on. One dose of Lasix today. Follow up with Cardiology for further plans. Chest x-ray ordered.
--- NOTE | 2017-12-13 12:08 | RAD ---
RADIOGRAPH CHEST 1 VIEW: Date: 12-13-17 Time: 10:16 a.m. HISTORY: 87-year-old female with dyspnea and fluid volume overload. COMPARISON: 12-09-17 FINDINGS: Again noted is a dual lead left subclavian pacemaker and cardiomegaly. The previously demonstrated op acities at the bilateral lower lung zones have worsened. Pulmonary vascular engorgement. No pneumotho rax. IMPRESSION: 1. Interval worsening of airspace densities in the bilateral lower lobes. 2. Bilateral pleural effusions, cardiomegaly, and pulmonary vascular congestion, are evidence for con gestive heart failure. LEANDRA [] POS: RAMIREZ
--- NOTE | 2017-12-13 13:48 | PDOC.PN ---
- Subjective Encounter Start Date: 12/13/17 Encounter Start Time: 13:35 Subjective: f/u for MONA/CK III with slow improvement in renal function. Now c/o SOB -: with PCXR showing bilat effusions and edema. Remains on O2 at 2.5L/min -: NC. - Objective Resuscitation Status: Resuscitation Status FULL:Full Resuscitation MAR Reviewed: Yes Vital Signs & Weight: Vital Signs (12 hours) Temp Pulse Resp BP BP Pulse Ox 12/13/17 08:02 102 H 158/79 H 12/13/17 08:00 98.7 F 102 H 20 97 12/13/17 07:19 98.7 F 102 H 20 158/79 H 97 12/13/17 04:35 101 H 20 Weight Weight 134 lb 3.2 oz I&O: 12/12/17 12/13/17 12/14/17 06:59 06:59 06:59 Intake Total 1800 1600 Balance 1800 1600 Result Diagrams: 12/12/17 04:13 12/13/17 04:39 Additional Labs: Microbiology 12/10/17 18:05 Stool Escherichia coli 0157 Culture - Final 12/10/17 18:05 Stool Campylobacter Antigen Assay - Final 12/10/17 18:05 Stool Shiga Toxin Test - Final 12/10/17 18:05 Stool C. difficile GDH Antigen & Toxins - Final 12/09/17 16:37 Urine Straight Catheter Urine Culture - Final Yeast species 12/10/17 18:05 Stool Stool Culture - Preliminary Laboratory Tests 12/09/17 12/09/17 12/09/17 16:18 16:18 16:18 Hgb 10.9 L Sodium 129 L Creatinine 4.42 H B-Natriuretic Peptide 424.3 H TSH 3rd Generation 12/09/17 12/10/17 12/10/17 16:18 04:32 04:32 Hgb 10.2 L Sodium 132 L Creatinine 3.93 H B-Natriuretic Peptide TSH 3rd Generation 2.8202 Radiology Reviewed by me: Yes (PCXR - bilat basilar effusions and edema) Phys Exam - Physical Examination alert, responsive in mild resp distress HEENT: PERRLA, moist MMs, sclera anicteric, oral pharynx no lesions Neck: no nodes, no JVD, supple diminished in bases, basilar crackles Respiratory: no wheezing, no rhonchi S1, S2 Cardiovascular: RRR, no significant murmur, no rub, gallop Gastrointestinal: soft, non-tender, no distention, positive bowel sounds Musculoskeletal: no edema, pulses present Neurological: non-focal, normal sensation, moves all 4 limbs Psychiatric: normal affect, A&O x 3 Skin: no rash, normal turgor, cap refill <2 seconds Dx/Plan (1) MONA (acute kidney injury) Code(s): N17.9 - ACUTE KIDNEY FAILURE, UNSPECIFIED Status: Acute Comment: Improved with IVF's, avoid nephrotoxic meds and limit contrast exposure, IVF's d /c'd due to volume overload (2) CKD (chronic kidney disease) stage 3, GFR 30-59 ml/min Status: Chronic Comment: See #1 above, not currently back to baseline renal function (3) Community acquired pneumonia Code(s): J18.9 - PNEUMONIA, UNSPECIFIED ORGANISM Status: Acute Qualifiers: Laterality: unspecified laterality Qualified Code(s): J18.9 - Pneumonia, unspecified organism Comment: bibasilar infiltrates on initial PCXR, suspect gm + cocci, d/c Zithromax and Rocephin, O2 prn, Duonebs, start Levaquin 250mg daily (4) Pulmonary edema Code(s): J81.1 - CHRONIC PULMONARY EDEMA Status: Acute Qualifiers: Chronicity: acute Qualified Code(s): J81.0 - Acute pulmonary edema Comment: Secondary to volume replacement and volume overload, iatrogenic, Lasix 20mg IV BID, monitor daily weights and strict I/O's, last Echo EF 55% 08/31 (5) COPD (chronic obstructive pulmonary disease) Status: Chronic Qualifiers: Comment: No evidence of COPD exacerbation, O2 prn, Duonebs, add Dulera 2 puffs BID (6) HTN (hypertension) Code(s): I10 - ESSENTIAL (PRIMARY) HYPERTENSION Status: Chronic Qualifiers: Hypertension type: essential hypertension Comment: Continue Diltiazem 240mg po daily, serial BP monitoring - Plan continue antibiotics, PT/OT, [employer] social [employer], respiratory therapy, out of bed/ ambulate, DVT proph w/SCDs Stable overall -: Add Lasix 20mg IV BID -: Daily weight and strict I/O's -: Cardiology consult -: OOB/ambulate with PT * AM lab: BMP
[2017-12-13] MEDS: Furosemide 20 MG/2 ML VIAL SLOW IVP SCH (15:11)
[2017-12-13] MEDS: traZODone HCl 50 MG TAB PO SCH (20:19)
[2017-12-13] MEDS: Tamsulosin HCl 0.4 MG CAP PO SCH (20:19)
[2017-12-13] MEDS: TROSPIUM 20 MG TABLET PO SCH (20:20)
[2017-12-13 22:27] LABS: Vancomycin, Trough 15.2 ug/mL
[2017-12-13] MEDS ORDERED: Vancomycin HCl 750 MG in Sodium Chloride 0.9% 250 ML 250 ML IVPB SCH (23:00)
[2017-12-14] MEDS ORDERED: ALPRAZolam 0.25 MG TAB PO SCH ×2 (00:30→23:30)
[2017-12-14] MEDS: Acetaminophen 325 MG TAB PO PRN ×5 (04:20→23:26)
[2017-12-14 04:44] LABS: Anion Gap 11 mmol/L (10-20); BUN (Urea Nitrogen) 20 mg/dL (9.8-20.1); Calc. Creatinine Clearance 23 mL/min (70-130); Calcium 8.4 mg/dL (7.8-10.44); Carbon Dioxide 26 mmol/L (23-31); Chloride 105 mmol/L (98-107); Estimated GFR-MDRD 28; Glucose 101 mg/dL (83-110); Potassium 3.9 mmol/L (3.5-5.1); Sodium 138 mmol/L (136-145)
[2017-12-14] MEDS: Levothyroxine Sodium 25 MCG TAB PO SCH (06:04)
[2017-12-14] MEDS: Levothyroxine Sodium 112 MCG TAB PO SCH (06:04)
[2017-12-14] MEDS: Furosemide 20 MG/2 ML VIAL SLOW IVP SCH ×2 (06:05→13:45)
[2017-12-14] MEDS: Mometasone/Formoterol 120 PUFF INHALER INH SCH ×2 (06:19→18:47)
[2017-12-14] MEDS: ALPRAZolam 0.25 MG TAB PO SCH (08:37)
[2017-12-14] MEDS: Multivit, Therapeutic 1 TAB PO SCH (08:37)
[2017-12-14] MEDS: Apixaban 2.5 MG TAB PO SCH ×2 (08:37→20:38)
[2017-12-14] MEDS: Ferrous Sulfate 325 MG TAB PO SCH (08:37)
[2017-12-14] MEDS: Hydrocortisone/Pramoxine (Proctofoam HC) 10 GM BOX TOP SCH ×3 (08:38→20:41)
[2017-12-14] MEDS: Famotidine 20 MG TAB PO SCH (08:38)
--- NOTE | 2017-12-14 12:24 | PRG ---
DATE OF SERVICE: 12/14/2017 NEPHROLOGY PROGRESS NOTE SUBJECTIVE: The patient slept a little bit better today. She is saying shortness of breath is jose r. OBJECTIVE: GENERAL: Elderly white female in no apparent distress. VITAL SIGNS: Temperature 98.2, pulse 107, respiratory rate 20, blood pressure 167/92. HEENT: Atraumatic, normocephalic. Oral mucosa is moist. NECK: Supple. CARDIOVASCULAR: S1, S2 heard. Rate and rhythm regular. RESPIRATORY: Clear to auscultation. GASTROINTESTINAL: Abdomen is soft. MUSCULOSKELETAL: No tenderness. No edema. DERMATOLOGIC: No skin rash. NEUROLOGIC: Alert and awake and oriented x3. No focal neurologic deficits. Moving all the extremit ies. PSYCHIATRIC: Mood and affect normal. LABORATORY DATA: Potassium is 3.9, BUN is 20, and creatinine is 1.7. ASSESSMENT AND PLAN: 1. Acute kidney injury secondary to volume depletion. Creatinine is better now, but currently she i s fluid overloaded. I agree with Lasix with close monitoring of renal function, possibly can switch to oral Lasix by tomorrow. Limit fluid. 2. Hyponatremia, better. 3. Chronic kidney disease stage 3. 4. Chronic edema. 5. Cardiorenal syndrome. 6. Chronic anemia. The patient's breathing seems to be better. Creatinine is better, even on diuretics, okay with diure tics for now with close monitoring. She had almost negative 4.5 liter of fluid balance yesterday. Elizabeth gonzalez will follow.
--- NOTE | 2017-12-14 16:37 | PDOC.PN ---
- Subjective Encounter Start Date: 12/14/17 Encounter Start Time: 16:25 Subjective: f/u for MONA/CKD III and dyspnea with pulmonary edema on IV Lasix -: with negative fluid balance 4.5L. Feels better and less SOB. O2 @ -: 2L/min NC chronically. - Objective Resuscitation Status: Resuscitation Status FULL:Full Resuscitation MAR Reviewed: Yes Vital Signs & Weight: Vital Signs (12 hours) Temp Pulse Resp BP BP Pulse Ox 12/14/17 12:22 98.3 F 101 H 18 145/78 H 96 12/14/17 08:37 107 H 167/92 H 12/14/17 08:00 98.2 F 107 H 20 97 12/14/17 07:39 98.2 F 107 H 20 167/92 H 97 12/14/17 06:18 102 H 20 98 Weight Weight 135 lb 12.8 oz I&O: 12/13/17 12/14/17 12/15/17 06:59 06:59 06:59 Intake Total 1600 1370 Output Total 5900 Balance 1600 -4530 Result Diagrams: 12/12/17 04:13 12/14/17 03:54 Additional Labs: Microbiology 12/10/17 18:05 Stool Escherichia coli 0157 Culture - Final 12/10/17 18:05 Stool Campylobacter Antigen Assay - Final 12/10/17 18:05 Stool Shiga Toxin Test - Final 12/10/17 18:05 Stool C. difficile GDH Antigen & Toxins - Final 12/09/17 16:37 Urine Straight Catheter Urine Culture - Final Yeast species 12/10/17 18:05 Stool Stool Culture - Preliminary Laboratory Tests 12/09/17 12/09/17 12/09/17 16:18 16:18 16:18 Hgb 10.9 L Sodium 129 L Creatinine 4.42 H B-Natriuretic Peptide 424.3 H TSH 3rd Generation 12/09/17 12/10/17 12/10/17 16:18 04:32 04:32 Hgb 10.2 L Sodium 132 L Creatinine 3.93 H B-Natriuretic Peptide TSH 3rd Generation 2.8202 Phys Exam - Physical Examination Constitutional: NAD smiling, alert, talkative HEENT: PERRLA, moist MMs, sclera anicteric, oral pharynx no lesions Neck: no nodes, no JVD, supple few basilar crackles o/w clear Respiratory: no wheezing, no rhonchi S1, S2 Cardiovascular: RRR, no rub, gallop Gastrointestinal: soft, non-tender, no distention, positive bowel sounds Musculoskeletal: no edema, pulses present Neurological: non-focal, normal sensation, moves all 4 limbs Psychiatric: normal affect, A&O x 3 Skin: no rash, normal turgor, cap refill <2 seconds Dx/Plan (1) MONA (acute kidney injury) Code(s): N17.9 - ACUTE KIDNEY FAILURE, UNSPECIFIED Status: Acute Comment: Improved, avoid nephrotoxic meds and limit contrast exposure, IVF's d/c'd due to volume overload, appears back to baseline (2) CKD (chronic kidney disease) stage 3, GFR 30-59 ml/min Status: Chronic Comment: See #1 above (3) Community acquired pneumonia Code(s): J18.9 - PNEUMONIA, UNSPECIFIED ORGANISM Status: Acute Qualifiers: Laterality: unspecified laterality Qualified Code(s): J18.9 - Pneumonia, unspecified organism Comment: bibasilar infiltrates on initial PCXR, suspect gm + cocci, d/c Zithromax and Rocephin, O2 prn, Duonebs, start Levaquin 250mg daily (4) Pulmonary edema Code(s): J81.1 - CHRONIC PULMONARY EDEMA Status: Acute Qualifiers: Chronicity: acute Qualified Code(s): J81.0 - Acute pulmonary edema Comment: Secondary to volume replacement and volume overload, iatrogenic, Lasix 20mg IV BID, monitor daily weights and strict I/O's, last Echo EF 55% 08/31 (5) COPD (chronic obstructive pulmonary disease) Status: Chronic Qualifiers: Comment: No evidence of COPD exacerbation, O2 prn, Duonebs, add Dulera 2 puffs BID (6) HTN (hypertension) Code(s): I10 - ESSENTIAL (PRIMARY) HYPERTENSION Status: Chronic Qualifiers: Hypertension type: essential hypertension Comment: Continue Diltiazem 240mg po daily, serial BP monitoring - Plan continue antibiotics, PT/OT, rn social services, out of bed/ambulate, DVT proph w/ SCDs Stable overall -: Continue Lasix 20mg IV BID another 24h then d/c -: Continue Levaquin 250mg po daily -: OOB/ambulate -: AM lab: BMP * Likely home in am
[2017-12-14] MEDS: traZODone HCl 50 MG TAB PO SCH (20:38)
[2017-12-14] MEDS: TROSPIUM 20 MG TABLET PO SCH (20:39)
[2017-12-14] MEDS: Tamsulosin HCl 0.4 MG CAP PO SCH (20:39)
--- NOTE | 2017-12-14 22:02 | PRG ---
DATE OF SERVICE: 12/14/2017 SUBJECTIVE: Ms. Thapa is doing well, no complaints. She feels well. She wants to go home. No ches t pain or pressure. OBJECTIVE: VITAL SIGNS: Blood pressure 145/78, pulse is in the 90s. LUNGS: Clear. CARDIAC: Normal S1 and S2. ABDOMEN: Soft, nontender. Looking at the EKG, she is still in atrial flutter. ASSESSMENT: 1. Atrial flutter. 2. Previous pacemaker insertion. The patient declines cardioversion. 3. Renal failure is improved, creatinine has gone from 3.9 to 1.75. PLAN: Okay for me to be released home on current medical regimen including diltiazem and apixaban. The patient declines cardioversion.
[2017-12-15] MEDS: Acetaminophen 325 MG TAB PO PRN ×2 (03:56→10:40)
[2017-12-15] MEDS: Levothyroxine Sodium 25 MCG TAB PO SCH (05:27)
[2017-12-15] MEDS: Levothyroxine Sodium 112 MCG TAB PO SCH (05:27)
[2017-12-15] MEDS: Furosemide 20 MG/2 ML VIAL SLOW IVP SCH (05:28)
[2017-12-15 05:45] LABS: Anion Gap 14 mmol/L (10-20); BUN (Urea Nitrogen) 17 mg/dL (9.8-20.1); Calc. Creatinine Clearance 22 mL/min (70-130); Calcium 8.4 mg/dL (7.8-10.44); Carbon Dioxide 28 mmol/L (23-31); Chloride 99 mmol/L (98-107); Estimated GFR-MDRD 28; Glucose 97 mg/dL (83-110); Potassium 3.7 mmol/L (3.5-5.1); Sodium 137 mmol/L (136-145)
[2017-12-15] MEDS: Mometasone/Formoterol 120 PUFF INHALER INH SCH (06:59)
[2017-12-15 07:30] VITALS: BP 151/82; TEMP 98.3
[2017-12-15] MEDS: ALPRAZolam 0.25 MG TAB PO SCH (08:37)
[2017-12-15] MEDS: Apixaban 2.5 MG TAB PO SCH (08:38)
[2017-12-15] MEDS: Multivit, Therapeutic 1 TAB PO SCH (08:38)
[2017-12-15] MEDS: Ferrous Sulfate 325 MG TAB PO SCH (08:38)
[2017-12-15] MEDS: Famotidine 20 MG TAB PO SCH (08:38)
[2017-12-15] MEDS: Hydrocortisone/Pramoxine (Proctofoam HC) 10 GM BOX TOP SCH (08:39)
--- NOTE | 2017-12-15 08:59 | PRG ---
Patient Name: RAJWINDER RENAE Date of service: 12/15/2017 Subjective: Patient was seen and examined at bedside and overnight events noted. Patient denies any shortness of breath or chest pain or palpitation. No history of nausea or vomiting or diarrhea or fever or chills or cramps. Objective: General: This is an elderly female in no apparent distress. Vital signs: Temperature 98.3, pulse 105, respiratory 18, blood pressure 151/82. HEENT: Atraumatic, normocephalic. Oral mucosa is moist. Neck: Supple. Cardiovascular: S1 S2 heard. Rate and rhythm regular. Respiratory: Scattered crackles. Gastrointestinal: Abdomen is soft. Musculoskeletal: No tenderness. No edema. Dermatologic: No skin rash. Neurologic: Alert and awake and oriented X3. No focal neurologic deficits. Moving all the extremit ies. Psychiatric: Mood and affect normal. LABORATORY DATA: Potassium is 3.7, BUN 72, creatinine 1.7. ASSESSMENT AND PLAN: 1. Acute kidney injury on chronic kidney stage 3 secondary to initially volume depletion and then ge t fluid overloaded. Breathing much better with the Lasix. Would recommend stopping the Lasix for no w with close monitoring of fluid status. Advised to limit fluid intake. 2. Hyponatremia, limit fluid intake. 3. Chronic kidney stage 3. 4. Chronic edema. 5. Cardiorenal syndrome. 6. Chronic anemia. Stop Lasix and monitor renal function. Advised to follow up with the clinic in [address] Lehman.
--- NOTE | 2017-12-15 13:20 | DIS ---
DATE OF ADMISSION: 12/09/2017 DATE OF DISCHARGE: 12/15/2017 DISCHARGE DIAGNOSES: 1. Acute kidney injury, resolving. 2. Chronic kidney disease stage 3, stable. 3. Community-acquired pneumonia, bibasilar involvement, suspected gram positive cocci, improved. 4. Pulmonary edema, iatrogenic resolving. 5. Chronic obstructive pulmonary disease with chronic hypoxic respiratory failure on oxygen suppleme ntation at 2 liters per minute by nasal cannula. 6. Hypertension, stable. CONSULTATIONS: 1. Dr. Lopez with Nephrology Service. 2. Dr. Soto with Cardiology Service. PERTINENT LABORATORY DATA AND X-RAY FINDINGS: Sodium ranged between 132-138, creatinine ranged betwe en 1.72-4.42. Estimated GFR ranged between 9-28. Magnesium level 2.7, BNP 424, TSH 2.82, hemoglobin ranged between 9.7-10.9. Urine culture dated 12/09/2017 showed 10-25,000 colonies of yeast species. Stool culture including Campylobacter antigen, Shigella and E. coli, negative 12/10/2017. C. diffi cile antigen and toxin 12/10/2017 negative. Portable chest x-ray dated 12/09/2017 showed bibasilar i nfiltrates with associated effusion. Bilateral renal ultrasound dated 12/10/2017 showed no evidence for hydronephrosis. Portable chest x-ray dated 12/13/2017 showed interval worsening of airspace opac ities in the bilateral lower lobes. HOSPITAL COURSE: Patient was initially admitted after presenting with generalized weakness. The pat ient underwent metabolic screening with elevated creatinine noted at 4.42 above baseline chronic kidn ey disease stage 3. The patient was placed on IV fluids and modified on renally cleared medications. The patient was evaluated by the Nephrology Service, undergoing bilateral renal ultrasound showing no evidence of obstructive uropathy. Patient responded appropriately to IV fluids; however, became v olume overloaded with increasing shortness of breath and dyspnea. The patient was treated for suspec jad bibasilar pneumonia and suspected gram positive cocci etiology with IV Zithromax and Rocephin. P atient continued on oxygen supplementation in the 2-3 liters per minute range and tolerated without d ifficulty. The patient was given IV Lasix for volume overload with excellent diuresis and overall im proving creatinine with serial monitoring. The patient continued to clinically improve with diuretic therapy without further intervention for cardiac status. The patient transitioned from IV Rocephin and Zithromax to Levaquin and we will complete a 5-day course of antibiotic therapy after discharge. I have examined the patient at the time of discharge and discussed followup instructions and pertine nt laboratory data and radiographic findings. Patient verbalizes understanding and agreement and wilmer dy for discharge on 12/15/2017. DISCHARGE MEDICATIONS: 1. Levaquin 250 mg 1 tab p.o. daily x5 days. 2. Xanax 0.25 mg p.o. daily. 3. Eliquis 2.5 mg p.o. b.i.d. 4. Dulcolax 10 mg per rectum daily p.r.n. 5. Calcium carbonate 1 tab p.o. at bedtime. 6. Vitamin D3 1000 units p.o. daily. 7. Clonidine 0.1 mg p.o. q.4 hours p.r.n. systolic blood pressure greater than or equal to 180. 8. Diltiazem ER 240 mg p.o. daily. 9. Pepcid 20 mg p.o. b.i.d. 10. Feosol 325 mg 1 tab p.o. daily. 11. DuoNeb 3 mL nebulized q.4 hours p.r.n. 12. Levothyroxine 137 mcg p.o. daily. 13. Multivitamin 1 tab p.o. daily. 14. MiraLax 17 grams p.o. daily. 15. Flomax 0.4 mg p.o. at bedtime. 16. Detrol 2 mg p.o. b.i.d. 17. Trazodone 50 mg p.o. at bedtime. FOLLOWUP: The patient may follow up with her primary care provider, Dr. Devi Cardenas within 7 days of d ischarge. The patient will follow up with Dr. Soto with [facility] Cardiology Service and call his office for appointment time and date. The patient will follow up with Dr. Lehman with Nephrology [facility] within 1 week of discharge. CONDITION ON DISCHARGE: Stable. ACTIVITY: Ad gamal. Rolling walker for ambulation. DIET: Heart healthy. CODE STATUS: FULL. DISPOSITION: Home, [facility] living 12/15/2017. Total time in preparing and coordinating discharge is 35 minutes.
== END 2017-12-15 11:57 | disposition home or self-care (01) | DRG 682 ==
LOC: ERS 15:43 → T4-A 17:37
PROVIDERS: ADMIT Internal Medicine; ATTEND Internal Medicine
DX: N17.9 Acute kidney failure, unspecified (principal); J18.9 Pneumonia, unspecified organism; J81.0 Acute pulmonary edema; E87.1 Hypo-osmolality and hyponatremia; I48.92 Unspecified atrial flutter; E87.2 Acidosis; J96.11 Chronic respiratory failure with hypoxia; J44.9 Chronic obstructive pulmonary disease, unspecified; I12.9 Hypertensive chronic kidney disease with stage 1 through stage 4 chronic kidney disease, or unspecified chronic kidney disease; N18.3 Chronic kidney disease, stage 3 (moderate); K21.9 Gastro-esophageal reflux disease without esophagitis; D64.9 Anemia, unspecified; Z86.718 Personal history of other venous thrombosis and embolism; Z79.01 Long term (current) use of anticoagulants; Z79.899 Other long term (current) drug therapy; Z96.641 Presence of right artificial hip joint
CPT/HCPCS: 36415; 51701; 71045; 76770; 80048; 80053; 80202; 81001; 81003; 81015; 82550; 82553; 82570; 83690; 83735; 83880; 83930; 83935; 84300; 84443; 84484; 85025; 85610; 85730; 87045; 87046; 87077; 87081; 87086; 87186; 87324; 87449; 87899; 93005; 94640; 96365; A4216; A4353; G8978-GP-CK; G8979-GP-CI; J0456; J0696; J1940; J1956; J3370; J7050; J7620; Q0162

== ENCOUNTER 2017-12-17 11:43 | Emergency (ER) | payer MEDICARE ==
--- NOTE | 2017-12-17 12:23 | RAD ---
CHEST 1 VIEW: Date: 12/17/17 HISTORY: Dyspnea. COMPARISON: 12/13/17. FINDINGS: Cardiac silhouette now predominantly obscured by increasing opacity at the left base. Patient rotated leftward. Small amount of right pleural fluid and patchy basilar infiltrate are stable. Calcificatio n in aorta. No evidence of pneumothorax. IMPRESSION: Increasing left pleural fluid and basilar infiltrate. Clinical correlation regarding other signs and symptoms of left basilar pneumonitis is required. Close continued radiographic follow-up suggested. POS: RAMIREZ
[2017-12-17 12:31] LABS: ALT (SGPT) 17 U/L (8-55); AST (SGOT) 25 U/L (5-34); Albumin 3.5 g/dL (3.4-4.8); Alkaline Phosphatase 112 U/L (40-150); Anion Gap 17 mmol/L (10-20); BUN (Urea Nitrogen) 23 mg/dL (9.8-20.1); Bilirubin, Total 0.3 mg/dL (0.2-1.2); CK (CPK) 29 U/L (29-168); Calc. Creatinine Clearance 0 mL/min (70-130); Calcium 9.1 mg/dL (7.8-10.44); Carbon Dioxide 25 mmol/L (23-31); Chloride 98 mmol/L (98-107); Estimated GFR-MDRD 23; Globulin 2.3 g/dL (2.4-3.5); Glucose 97 mg/dL (83-110); Potassium 3.8 mmol/L (3.5-5.1); Protein, Total 5.8 g/dL (6.0-8.3); Sodium 136 mmol/L (136-145)
[2017-12-17 12:34] LABS: #Eosinphils 0.2 thou/uL (0.0-0.7); #Lymphocytes 1.1 thou/uL (1.20-3.40); #Monocytes 0.6 thou/uL (0.11-0.59); #Neutrophils 5.6 thou/uL (1.40-6.50); %Basophils 0.6 % (0.0-1.0); %Eosinophils 2.3 % (0.0-10.0); %Lymphocytes 14.4 % (21.0-51.0); %Monocytes 8.2 % (0.0-10.0); %Neutrophils 74.6 % (42.0-75.0); Anisocytosis SLIGHT = 6-15 cells (100X) (0-5/hpf); Band 5 % (5-11); Eosinophils 3 % (0-10); Hemoglobin 10.7 g/dL (12.0-16.0); Lymphocytes 10 % (21-51); MDiff Complete? YES; Mean Corpuscular HGB CONC 32.4 g/dL (32.0-36.0); Mean Corpuscular Volume 92.6 fl (81.0-99.0); Mean Platelet Volume 7.2 fL (7.4-10.4); Monocytes 3 % (0-10); Neutrophil 75 % (42-75); PLT Morphology Comment Appears Increased; Platelet Count 467 thou/uL (130-400); Polychromasia SLIGHT = 2-3 cells (100X) (0-2/hpf); RBC Distribution Width 16.9 % (11.5-14.5); Reactive Lymphocytes 2 % (0-10); Red Blood Cell (RBC) Count 3.56 mill/uL (4.20-5.40); Schistocytes SLIGHT = 2-5 cells (100X) (0-1/hpf); Target Cells SLIGHT = 2-5 cells (100X) (0-1/hpf); White Blood Cell (WBC) Count 7.5 thou/uL (4.8-10.8)
[2017-12-17 13:58] LABS: Bilirubin Negative (Negative); Blood, Urine Negative (Negative); Clarity CLOUDY (Clear); Glucose, Urine (Dipstick) Negative (Negative); Leukocyte Moderate (Negative); Nitrite Negative (Negative); Protein, Urine (Dipstick) 30 mg/dL (Neg-Trace); Specific Gravity, Urine 1.014 (1.002-1.036); Urobilinogen 0.2 mg/dL (0.2-1.0); pH, Urine 7.5 (5.0-9.0)
[2017-12-17 13:59] LABS: Bacteria/HPF None Seen HPF (None Seen); Hyaline Casts/LPF 0-3 HYALINE CAST LPF (0-3 Hyaline); Pathc Cast-AUWi Flag 0.87 (0-2.49); RBC/HPF 0-3 HPF (0-3)
[2017-12-17 14:10] LABS: Renal Epithelial None Seen HPF (0-3); Transitional Epithelial NONE SEEN HPF (0-3)
== END 2017-12-17 14:06 | disposition home or self-care (01) ==
LOC: ERS 11:43
DX: M79.1 Myalgia (principal); E78.5 Hyperlipidemia, unspecified; J44.9 Chronic obstructive pulmonary disease, unspecified; E03.9 Hypothyroidism, unspecified; I10 Essential (primary) hypertension; M81.0 Age-related osteoporosis without current pathological fracture; K21.9 Gastro-esophageal reflux disease without esophagitis; F41.9 Anxiety disorder, unspecified; D64.9 Anemia, unspecified; F32.9 Major depressive disorder, single episode, unspecified; Z79.891 Long term (current) use of opiate analgesic; Z79.01 Long term (current) use of anticoagulants; Z79.899 Other long term (current) drug therapy; Z87.891 Personal history of nicotine dependence
CPT/HCPCS: 36415; 71045; 80053; 81003; 81015; 82550; 85025

== ENCOUNTER 2017-12-28 06:14 | Day surgery (SDC) | payer MEDICARE ==
[2017-12-27 12:05] VITALS: BMI 22.4
[2017-12-28] MEDS ORDERED: PROPOFOL 40 ML ONE (06:57)
[2017-12-28] MEDS ORDERED: PROPOFOL 200 MG/20 ML VIAL ONE (09:54)
--- NOTE | 2017-12-28 16:28 | OP ---
DATE OF PROCEDURE: 12/28/18 PROCEDURE: Cardioversion. The patient was brought to the PCU in the fasting state. She was sedated by Anesthesia. She was given a single dose of 50 joules direct current energy. She converted briefly to sinus rhythm and then when appear to be back in atrial tachycardia, then back to sinus rhythm. Pt had sinus rhythm at conclusion of procedure CONCLUSION: Cardioversion initially successful, unclear if it will be long-term successful. PLAN: 1. Continue Eliquis. 2. Continue medication. 3. Dr. Crawford had been considering the possibility of ablation. We will re- evaluate that. STEPHANIE
== END 2017-12-28 07:50 | disposition home or self-care (01) ==
LOC: CCL 06:14
PROVIDERS: ATTEND Internal Medicine Cardiovascular Disease
PROC: 5A2204Z Restoration of Cardiac Rhythm, Single (ICD-10-PCS; principal; 2017-12-28)
DX: I48.0 Paroxysmal atrial fibrillation (principal); I48.4 Atypical atrial flutter; I12.9 Hypertensive chronic kidney disease with stage 1 through stage 4 chronic kidney disease, or unspecified chronic kidney disease; N18.3 Chronic kidney disease, stage 3 (moderate); J44.9 Chronic obstructive pulmonary disease, unspecified; K21.9 Gastro-esophageal reflux disease without esophagitis; I25.10 Atherosclerotic heart disease of native coronary artery without angina pectoris; Z79.899 Other long term (current) drug therapy; Z95.0 Presence of cardiac pacemaker
CPT/HCPCS: 92960; J2704

== ENCOUNTER 2018-01-09 13:12 | Outpatient (CLI) | payer MEDICARE | END 2018-01-09 13:13 | disposition home or self-care (01) | LOC: CP 13:12 | PROVIDERS: ATTEND Internal Medicine Critical Care Medicine | DX: J44.9 Chronic obstructive pulmonary disease, unspecified (principal) | CPT/HCPCS: 94010; 94727 ==

== ENCOUNTER 2018-01-11 04:23 | Inpatient (IN) | payer MEDICARE ==
[2018-01-11] MEDS ORDERED: Acetaminophen 500 MG TAB ONE (05:06)
[2018-01-11 05:37] LABS: ALT (SGPT) 17 U/L (8-55); AST (SGOT) 24 U/L (5-34); Albumin 4.3 g/dL (3.4-4.8); Alkaline Phosphatase 115 U/L (40-150); Anion Gap 16 mmol/L (10-20); BUN (Urea Nitrogen) 45 mg/dL (9.8-20.1); Bilirubin, Total 0.4 mg/dL (0.2-1.2); Calc. Creatinine Clearance 0 mL/min (70-130); Carbon Dioxide 16 mmol/L (23-31); Chloride 107 mmol/L (98-107); Estimated GFR-MDRD 15; Globulin 2.7 g/dL (2.4-3.5); Glucose 137 mg/dL (83-110); Lipase 15 U/L (8-78); Potassium 4.8 mmol/L (3.5-5.1); Sodium 134 mmol/L (136-145)
[2018-01-11 05:41] LABS: #Lymphocytes 0.4 thou/uL (1.20-3.40); #Neutrophils 13.7 thou/uL (1.40-6.50); %Basophils 0.1 % (0.0-1.0); %Eosinophils 0.2 % (0.0-10.0); %Lymphocytes 2.7 % (21.0-51.0); %Monocytes 6.6 % (0.0-10.0); %Neutrophils 90.3 % (42.0-75.0); Hemoglobin 12.4 g/dL (12.0-16.0); Mean Corpuscular HGB CONC 32.4 g/dL (32.0-36.0); Mean Corpuscular Hemoglobin 31.5 pg (27.0-31.0); Mean Corpuscular Volume 97.4 fl (81.0-99.0); Mean Platelet Volume 9.4 fL (7.4-10.4); Platelet Count 221 thou/uL (130-400); RBC Distribution Width 20.8 % (11.5-14.5); Red Blood Cell (RBC) Count 3.94 mill/uL (4.20-5.40); White Blood Cell (WBC) Count 15.1 thou/uL (4.8-10.8)
[2018-01-11 05:44] LABS: CKMB 1.9 ng/mL (0-6.6); Troponin I Less than 0.010 ng/mL (< 0.028)
[2018-01-11] MEDS ORDERED: Morphine 4 MG/ML VIAL ONE ×2 (05:52→07:32)
[2018-01-11] MEDS ORDERED: Piperacillin/Tazobactam 3.375 GM VIAL ONE (05:53)
[2018-01-11] MEDS ORDERED: Ondansetron ODT 8 MG TAB ONE (05:53)
[2018-01-11] MEDS ORDERED: cefTRIAXone\\ROCEPHIN 2 GM VIAL ONE (06:55)
[2018-01-11] MEDS ORDERED: Azithromycin 500 MG VIAL ONE (06:56)
[2018-01-11 07:03] LABS: Bilirubin Negative (Negative); Blood, Urine Moderate (Negative); Clarity CLOUDY (Clear); Glucose, Urine (Dipstick) Negative (Negative); Leukocyte Large (Negative); Nitrite Negative (Negative); Protein, Urine (Dipstick) 30 mg/dL (Neg-Trace); Specific Gravity, Urine 1.019 (1.002-1.036); Urobilinogen 0.2 mg/dL (0.2-1.0); pH, Urine 5.5 (5.0-9.0)
[2018-01-11 07:06] LABS: Bacteria/HPF None Seen HPF (None Seen); Hyaline Casts/LPF 0-3 HYALINE CAST LPF (0-3 Hyaline); Pathc Cast-AUWi Flag 0.58 (0-2.49)
[2018-01-11 07:25] LABS: Yeast-All Forms 2+ HPF (None Seen)
--- NOTE | 2018-01-11 08:27 | CT ---
PRELIMINARY REPORT/[facility]/EMERGENCY AFTER HOURS PROCEDURE: EXAM: CT Abdomen and Pelvis Without Intravenous Contrast EXAM DATE/TIME: 01/11/2018 6:04 AM CLINICAL HISTORY: 87 years old, female; Pain; Abdominal pain; Acute; Patient HX: F87 presents to ed for abdominal pain. Pt reports abdominal pain that started earlier today. Pt reports some vomiting but denies any blood. Pt denies cough or urinary symptoms, pt reports she has a pacemaker and reports her mortgage loan closer is dr. Soto. ; Additional info: Full, surgical history of tonsillectomy, right hip rep lacement. Left hip repairment. Pacemaker-09/2017. TECHNIQUE: Axial computed tomography images of the abdomen and pelvis without intravenous contrast. All CT scans at this facility use one or more dose reduction techniques, viz.: automated exposure control; ma/kV adjustment per patient size (including targeted exams where dose is matched to indication; i.e. head) ; or iterative reconstruction technique. Coronal reformatted images were created and reviewed. COMPARISON: No relevant prior studies available. FINDINGS: Lung bases: There are emphysematous changes at the lung bases. Stranding in the right lung base is pr obably atelectasis.There is a small hiatal hernia. ABDOMEN: Liver: Unremarkable. Gallbladder and bile ducts: The gallbladder is absent. No ductal dilation. Pancreas: The pancreas is atrophic. The pancreas is otherwise without acute change or focal lesion. N o ductal dilation. Spleen: Unremarkable. No splenomegaly. Adrenals: Unremarkable. No mass. Kidneys and ureters: There is a 9 mm stone in the proximal left ureter. There is moderate hydronephro sis. There is an 11 mm stone in the proximal right ureter. There is moderate hydronephrosis. There ar e nonobstructing stones in the collecting systems of both kidneys. Stomach and bowel: There is a large amount of stool in the colon. The intestine is otherwise unremark able. No inflammatory change. No obstruction. No mucosal thickening. PELVIS: Appendix: No findings to suggest acute appendicitis. Bladder: Unremarkable. No stones. Reproductive: Unremarkable as visualized. ABDOMEN and PELVIS: Intraperitoneal space: Unremarkable. No free air. No significant fluid collection. Bones/joints: There is a bipolar right hip prosthesis. There are nails x3 in the left femoral neck. There is an old healed left pubic ramus fracture. No dislocation. Soft tissues: Unremarkable. Vasculature: Unremarkable. No abdominal aortic aneurysm. Lymph nodes: Unremarkable. No enlarged lymph nodes. IMPRESSION: 1. Large stone in each proximal ureter with bilateral hydronephrosis. 2. Large amount of stool in the colon. Thank you for allowing us to participate in the care of your patient. Dictated and Authenticated by: Nehemiah Junoir MD 01/11/2018 7:24 AM Central Time ([place]) FINAL REPORT CT ABDOMEN AND PELVIS PERFORMED WITHOUT IV CONTRAST: FINDINGS: Bilateral hydronephrosis. There are large calculi in the proximal aspect of both ureters producing b ilateral hydronephrosis. There are calculi in the upper collecting structures of both kidneys. Sliding diaphragmatic hernia. Prominent stool in the colon. I am in agreement with the preliminary report. POS: RAMIREZ
--- NOTE | 2018-01-11 08:27 | RAD ---
PORTABLE CHEST: HISTORY: Fever. COMPARISON: 12/17/17. FINDINGS: The heart is enlarged with aortic calcification. Mild vascular congestion. Streaky atelectasis in t he right lung base. I cannot exclude mild interstitial edema. No confluent consolidation or infiltr ate apparent. POS: [facility]
[2018-01-11 09:31] VITALS: BMI 20.7
[2018-01-11] MEDS ORDERED: Mag-Al 1200 mg/1200 mg/30 ML UDCUP PO PRN (09:50)
[2018-01-11] MEDS ORDERED: Chloraseptic Spray 180 ml Bottle PO PRN (09:50)
[2018-01-11] MEDS ORDERED: Acetaminophen 325 MG TAB PO PRN (09:50)
[2018-01-11] MEDS ORDERED: Eucerin (Mineral Oil/Petrolatum,White) 30 gm Jar TOP PRN (09:50)
[2018-01-11] MEDS ORDERED: Ondansetron HCl/PF 4 MG/2 ML Vial IVP PRN ×2 (09:50→12:41)
[2018-01-11] MEDS ORDERED: Loratadine 10 MG TAB PO PRN (09:50)
[2018-01-11] MEDS ORDERED: Sodium Chloride 0.65% Nasal 44 ML BOT EA NARE PRN (09:50)
[2018-01-11] MEDS ORDERED: Ondansetron ODT 4 MG TAB PO PRN (09:50)
[2018-01-11] MEDS ORDERED: Diabetic Tussin 200 MG/10 ML UDCUP PO PRN (09:50)
[2018-01-11] MEDS ORDERED: hydrALAZINE 20 MG/ML VIAL SLOW IVP PRN (09:50)
[2018-01-11] MEDS ORDERED: Senokot 8.6 MG TAB PO PRN (09:50)
[2018-01-11] MEDS ORDERED: Artificial Tears 18 DROP/0.9 ML EA EYE PRN (09:50)
[2018-01-11] MEDS ORDERED: Milk Of Magnesia 30 ML UDCUP PO PRN (09:50)
[2018-01-11] MEDS ORDERED: Zolpidem Tartrate 5 MG TAB PO PRN (09:50)
[2018-01-11] MEDS ORDERED: Morphine 4 MG/ML Carpuject SLOW IVP PRN (09:53)
[2018-01-11] MEDS ORDERED: Levofloxacin 500 mg/D5W 100 ml Premix Bag ONE (11:12)
[2018-01-11] MEDS ORDERED: Iothalamate Meglumine 60% 50 ML VIAL FS ONE (11:25)
--- NOTE | 2018-01-11 11:59 | CON ---
DATE OF CONSULTATION: 01/11/2018 REASON FOR CONSULT: Bilateral hydronephrosis. HISTORY OF PRESENT ILLNESS: Ms. Thapa is an 87-year-old female G6, P6, previously followed by Dr. Forbes at [facility]. The patient has undergone multiple bilateral ureteroscopy by Dr. Forbes, some at [facility], some at [facility]. I did take care of the patient back in August while covering for Dr. Forbes, underwent right ureteral stent placement as she presented with sepsis, temperature of 103. She subsequently had right ureteroscopy by Dr. Forbes. She continues to have large stone burden and on observation. She recently transferred her care to my services, due to insurance issues. The patient is admitted to the medical service as she presented to the ER due to abdominal pain. Restaging CT was obtained demonstrating bilateral hydronephrosis secondary to bilateral proximal ureteral calculi. She was provided Rocephin and Zosyn in the Emergency Room. The patient has been n.p.o. She presented to the emergency room with temperature of 100.5, currently afebrile. PAST MEDICAL HISTORY: Hypertension, thyroid disease, history of recurrent kidney stones, reflux, IBS, arthritis, chronic hip pain, chronic neuropathic thoracic lumbar pain, hypertension followed by Dr. Soto, pelvic fracture, deconditioned status, history of cardiac arrhythmia, hypokalemia, esophagitis, chronic kidney disease followed by Dr. Lehman, diastolic dysfunction. PAST SURGICAL HISTORY: CABG, pacemaker, knee replacement, hysterectomy, pacemaker, laparoscopic cholecystectomy, cystoscopy, right retrograde stent on Dr. Forbes on 03/2016, ureteroscopy, laser lithotripsy on 04/[address] Forbes, on 03/2017 left ureteroscopy with 6 x [address] Forbes, 08/2017 cysto right retrograde stent, 10/16/2017 cystoscopy, right ureteroscopy, laser lithotripsy, right stent removal by Dr. Forbes on 10/24/2017, cardioversion by Dr. Soto 12/28/2017. CURRENT MEDICATIONS: Include Rocephin, hydralazine, hydrocodone, Levaquin executive director contract shop, loperamide, Zofran, Protonix, Marilee and Ambien. ALLERGIES: No known drug allergies. PHYSICAL EXAMINATION: VITAL SIGNS: Stable at 98, however, she is tachycardic at 121/96 and 124/61. GENERAL: Patient currently resting comfortably. HEENT: Grossly unremarkable. HEART: Regular rate. ABDOMEN: Soft. She does have bilateral subjective discomfort in lower back. No rigidity, no rebound is grossly appreciated. GENITOURINARY: Demonstrates severe atrophic vaginitis with no significant prolapse. EXTREMITIES: No cyanosis, clubbing or edema. NEUROLOGIC: No gross focal deficits; however, limited due to her deconditioned status. PERTINENT LABORATORY DATA AND IMAGING DATA: Baseline creatinine is 1.1-2.0, current admission with creatinine of 2.94, BUN 45, potassium 4.8. White count of 15, hemoglobin 12, platelet 221, 90 segs. Urinalysis is contaminated. No bacteria seen, 30 of protein, moderate blood, negative leukocytes, large leukocytes, 4-6 RBCs, greater than 50 WBCs. Cultures are pending. CT of the abdomen and pelvis stone protocol on 01/11/2018 demonstrates bilateral renal calculi. Per my review, there is an 8-10 mm right upper to mid pole dystrophic calcification, 8-9 mm right lower pole stone, 8-9 mm right lower pole dystrophic renal parenchymal calcification, right proximal ureteral calculi at the level of L3-L4 measuring 8-11 mm. Left lower pole which shaped calcification 9 mm, left L3 proximal ureteral stone measuring approximately 9 x 11 mm. bilateral hydronephrosis. IMPRESSION AND PLAN: Ms. Thapa is an 87-year-old female with history of recurrent kidney stones, previously followed by [facility] recently transferred care, presents with bilateral hydronephrosis, acute renal insufficiency, fever, and leukocytosis. Recommend emergent bilateral stent placement. She will be monitored with urine culture. Elective ureteroscopy, laser lithotripsy of ureteral stone is advised. The patient has been n.p.o., antibiotics executive director contract shop to the OR. STEPHANIE
[2018-01-11] MEDS ORDERED: Digoxin 0.5 MG/2 ML AMP SLOW IVP SCH (12:45)
[2018-01-11] MEDS ORDERED: Prevnar 13-Val Conj/PF 0.5 ML SYRINGE IM ONE (12:45)
[2018-01-11] MEDS ORDERED: Oxybutynin 5 MG TAB PO PRN (12:59)
--- NOTE | 2018-01-11 13:08 | OP ---
DATE OF SERVICE: 01/11/2018 PREOPERATIVE DIAGNOSES: 1. An 87-year-old female with history of recurrent kidney stone, bilateral hydronephrosis secondary to bilateral ureteral calculi. 2. Acute renal insufficiency, chronic renal insufficiency. 3. Fever and leukocytosis. POSTOPERATIVE DIAGNOSES: 1. An 87-year-old female with history of recurrent kidney stone, bilateral hydronephrosis secondary to bilateral ureteral calculi. 2. Acute renal insufficiency, chronic renal insufficiency 3. Fever, leukocytosis. PROCEDURES PERFORMED: Cystoscopy, bilateral retrograde, bilateral 6 x 24 double -J ureteral stent placement. SURGEON: Hue Forrester D.O. ANESTHESIA: General. COMPLICATIONS: None apparent. DISPOSITION: Recovery room in stable condition. INDICATIONS FOR PROCEDURE AND HISTORY: Ms. Thapa is an 87-year-old female with history of cardiac arrhythmia, status post cardioversion with history of bilateral recurrent kidney stones. The patient recently transferred care from [facility]. She was previously followed by Dr. Forbes, had undergone multiple ureteroscopy, laser lithotripsies. She was admitted last night due to history of fever, bilateral abdominal discomfort. She has a white count of 15, 000 and renal insufficiency, a creatinine of 2.94. She has been provided multiple antibiotic therapy. CT demonstrated bilateral hydronephrosis, with presenting clinical picture consistent with early sepsis, SIRS, advised regarding emergent bilateral stent placement. Risks and complications of the procedure was discussed with patient in detail including, but not limited to, bleeding, pain, infection, injury to adjacent organs, urosepsis, hematuria, chronic pain. All questions answered to her satisfaction, she desires to proceed. The patient in full understanding. She will require a staged bilateral ureteroscopy, laser lithotripsy at a later date. DESCRIPTION OF THE PROCEDURE: After an informed consent is signed, the patient is taken to the operating room, placed in a dorsal lithotomy position with the genital area prepped and draped in usual surgical sterile fashion. Bilateral MARIKA hose, SCDs, and broad-spectrum antibiotics were provided. A 21 Malay cystoscope was utilized for cystoscopy. Upon entering the bladder, there was moderate debris. The UO's were patulous. They were in located in normal orthotopic position. We intubated the left UO, there was some hang up passing the wire to the level of the stone. Therefore, we did a gentle retrograde pyelogram opacifying the collecting system. A faint calcific density filling defect was noted in the proximal ureter at the level of L3. A 0.35 sensor wire was placed into the left upper pole and a 6 x 24 double-J ureteral stent placed. We then performed similarly on the right side as she has right hydronephrosis. Again, there was some hang up due to the tortuosity of the proximal ureter requiring a retrograde pyelogram to delineate anatomy. A 0.35 sensor wire was then passed into the right upper pole and a 6 x 24 double-J ureteral stent was passed. There was some resistance passing the stent at the level of the stone, however, we were able to pass the stent in its proper position coiled in the upper pole. The bilateral stents are in good position confirmed on cystoscopy and fluoroscopy and bladder was completely emptied. I did place an 18 Malay 10 mL Pompa catheter. She will likely require strict I' s and O's, and will be fluid resuscitated, medical optimization. will follow along with you. The patient did have tachycardia, status post recent cardioversion. Recommend Cardiology consultation STEPHANIE
--- NOTE | 2018-01-11 13:14 | HP ---
PRIMARY CARE PHYSICIAN: Dr. Devi Cardenas. REASON FOR ADMISSION: Sepsis, urinary tract infection, bilateral hydronephrosis, and bilateral urete ral stone. HISTORY OF PRESENT ILLNESS: An 87-year-old female who came to emergency room with a complaint of stephanie ateral flank pain, predominantly on the right side. She was also having nausea and vomiting. She wa s also having fever with chills. She was experiencing dysuria, but no hematuria. She was feeling mo re weak and tired. She lives at assisted living facility at [facility]. Her pain was out of c ontrol and that is why she was sent to emergency room for evaluation. In the emergency room, patient had routine blood test, which showed leukocytosis with a left shift. Her creatinine was elevated fr om her baseline to 2.94 and her urinalysis was suggestive of hematuria and urinary tract infection. Subsequently, CT stone protocol was done in the emergency room which showed bilateral hydronephrosis and large calculi in the proximal aspect of both ureters. In the emergency room, patient has receive d Rocephin and Zosyn. The patient was given morphine 4 mg x2, IV fluid and subsequently she was admi tted to telemetry floor. REVIEW OF SYSTEMS: The following complete review of systems was negative, unless otherwise mentioned in the HPI or below: Constitutional: Weight loss or gain, ability to conduct usual activities. Skin: Rash, itching. Eyes: Double vision, pain. ENT/Mouth: Nose bleeding, neck stiffness, pain, tenderness. Cardiovascular: Palpitations, dyspnea on exertion, orthopnea. Respiratory: Shortness of breath, wheezing, cough, hemoptysis, fever or night sweats. Gastrointestinal: Poor appetite, abdominal pain, heartburn, nausea, vomiting, constipation, or diarr hea. Genitourinary: Urgency, frequency, dysuria, nocturia. Musculoskeletal: Pain, swelling. Neurologic/Psychiatric: Anxiety, depression. Allergy/Immunologic: Skin rash, bleeding tendency. Please see my HPI for pertinent positive and negative. All other review of systems reviewed and nega tive except as mentioned in the HPI. EMERGENCY ROOM COURSE: Patient has received Rocephin 2 gram, Zosyn 3.375 gram, morphine 4 mg x2, IV fluid 2 liter, Zofran 8 mg, and Tylenol 1 gram. CURRENT HOME MEDICATIONS: Xanax 0.25 mg p.o. daily, Eliquis 2.5 mg p.o. b.i.d., calcium carbonate wi th vitamin D 1 tablet p.o. at bedtime, vitamin D3 1000 units p.o. daily, Catapres 0.1 mg p.o. q.4 ioana rly p.r.n., Cardizem-CD 240 mg p.o. daily, ferrous sulfate 325 mg p.o. daily, Synthroid 137 mcg p.o. daily, Claritin 10 mg p.o. daily, multivitamin 1 tablet p.o. daily, MiraLax 17 grams p.o. daily, Flom ax 0.4 mg p.o. at bedtime, Detrol 2 mg p.o. b.i.d., and trazodone 50 mg p.o. at bedtime. ALLERGIES: No known drug allergies. PAST MEDICAL HISTORY: History of deep vein thrombosis on chronic anticoagulation with Eliquis, COPD, history of nephrolithiasis, hypertension, anemia of renal disease, chronic kidney disease stage 3, g astroesophageal reflux disease, osteoporosis, chronic low back pain, and hypothyroidism. PAST PSYCHIATRIC HISTORY: Anxiety and depression. PAST SURGICAL HISTORY: Cholecystectomy in 03/2017, appendicectomy, total abdominal hysterectomy, rig ht total hip replacement, left total hip replacement, and tonsillectomy. FAMILY HISTORY: No strong family history of premature coronary artery disease, stroke or cancer. SOCIAL HISTORY: The patient lives at [facility]. She is an ex-smoker , but quit smoking more than 10 years ago. She denies any alcohol abuse. She denies any other illic it drug abuse. PHYSICAL EXAMINATION: VITAL SIGNS: On arrival to emergency room, blood pressure 129/65, pulse 113 irregular, respiratory r ate 18, temperature 100.5, saturation 95% on room air, and weight 51.26 kilograms. GENERAL: Patient is currently alert, febrile, tachycardic, mild distress due to pain. HEAD: Normocephalic, atraumatic. EYES: Pupils round, reactive to light. Extraocular muscle intact. ENT: Oropharynx within normal limit. Somewhat dry appearing mucous membrane, no oral lesion, no pha ryngeal erythema, no exudate. NECK: Supple, no JVD, no thyromegaly, no carotid bruit, no JVD. LUNGS: Clear to auscultation without any rhonchi or rales. CARDIAC: S1, S2 irregularly irregular. No murmur elicited, no gallop, no rub. Pacemaker in place. ABDOMEN: Patient has bilateral flank tenderness, bilateral CVA tenderness, suprapubic discomfort, no peritoneal sign, no guarding, no rigidity, no rebound, no organomegaly, no mass. BACK: Bilateral CVA tenderness noted. Upper extremity passive movement of all joints are normal. L ower extremities: No edema. Good peripheral pulsation. SKIN: No skin rash. HEMATOLOGICAL SYSTEM: No lymphadenopathy. PSYCHIATRIC: Normal affect. NEUROLOGIC: The patient is alert and oriented x3, hard of hearing. Speech normal, no focal neurolog ical deficit noted. She is moving all 4 limbs. Plantar bilateral flexor. IMAGING DATA AND SIGNIFICANT LABORATORY DATA: 1. EKG showing atrial flutter with variable AV block. 2. Chest x-ray based on my review, no acute cardiopulmonary process. 3. CT of the abdomen and pelvis without contrast consistent with large stone in bilateral proximal u reter with bilateral hydronephrosis and constipation. 4. CBC: WBC 15.1, hemoglobin 12.4, and platelet 221. 5. BMP: Sodium 134, potassium 4.8, chloride 107, carbon dioxide 16, anion gap 16, BUN 45, creatinin e 2.94, glucose 137, calcium 10.0, lactic acid 0.8. 6. LFT: AST 24, ALT 17, alkaline phosphatase 115, albumin 4.3, lipase 15. CK-MB 1.9, troponin I le ss than 0.010. Urinalysis consistent with urinary tract infection. ASSESSMENT AND PLAN/IMPRESSION: 1. Sepsis with acute organ dysfunction. Patient has tachycardia, febrile leukocytosis with left jaclyn ft and she has acute on chronic kidney failure. She meets sepsis criteria with acute organ dysfuncti on. Patient had blood and urine culture done in the emergency room. We will continue with gentle IV fluid. We will continue with broad spectrum antibiotic therapy with Rocephin and Levaquin based on previous culture result. We will closely monitor on telemetry floor. 2. Urinary tract infection, complicated. Patient does have proximal bilateral ureteral stone and bi lateral hydronephrosis. She is also due to sepsis criteria. Patient will need emergent cystoscopic procedure and that is why we will consult Dr. Forrester. Patient has received appropriate antibiot ic therapy with Rocephin and levofloxacin. We will continue with IV fluid and follow up on culture r esult and change antibiotic therapy accordingly. 3. Bilateral proximal ureteral stone with bilateral hydronephrosis. The patient is kept n.p.o. and she is going for cystoscopy and stent placement later on today. Urology consulted. She will need ul timately ureteroscopy and laser lithotripsy on an outpatient basis. We will monitor renal function. 4. Acute on chronic kidney failure, baseline chronic kidney disease stage 3. Patient is getting gen tle IV fluid. We will repeat BMP tomorrow. We will avoid nephrotoxin agent, most likely renal failu re is post-obstructive etiology. 5. History of deep venous thrombosis on chronic anticoagulation. The patient is going for ureterosc opy and stent placement. We will hold on that medication for now until her hematuria clears. 6. Atrial flutter with variable block with rapid ventricular response. We will continue Cardizem CD 240 mg p.o. daily. If patient remains n.p.o. and if heart rate was very fast, then we will consider adding digoxin on her regimen. 7. Hypothyroidism. We will continue Synthroid 137 mcg as per home dosage. 8. Anxiety and depression. We will continue Xanax on p.r.n. basis. 9. Chronic obstructive pulmonary disease. We will continue DuoNeb therapy q.6 hourly p.r.n. basis. 10. Deep venous thrombosis prophylaxis. We will hold on anticoagulation therapy because patient is planned for surgery today. 11. Gastrointestinal prophylaxis, Protonix 40 mg p.o. daily. CODE STATUS: Patient is FULL CODE. Patient's son is surrogate decision maker. Disposition plan based on clinical course. We are expecting patient's stay in hospital more than 2 m idnights. Plan of care discussed with the patient in detail.
[2018-01-11] MEDS: cefTRIAXone\\ROCEPHIN 1 GM in Sodium Chloride 0.9% 100 ML IVPB SCH (13:19)
[2018-01-11] MEDS: Sodium Chloride 0.9% 1,000 ML IV SCH ×4 (13:19→21:08)
[2018-01-11] MEDS: Morphine 4 MG/ML VIAL IV PRN ×3 (14:03→22:48)
[2018-01-11] MEDS ORDERED: PHENYLEPHRINE-NS 100 MCG/ML 10 ML SYRINGE ONE (15:24)
[2018-01-11] MEDS ORDERED: Succinylcholine Chloride 20 MG/ML 10 ml SYRINGE FS ONE (15:24)
[2018-01-11] MEDS ORDERED: Metoprolol Tartrate 5 MG/5 ML VIAL ONE (15:24)
[2018-01-11] MEDS ORDERED: Lidocaine 1% PF 5 ML VIAL ONE (15:24)
[2018-01-11] MEDS ORDERED: PROPOFOL 200 MG/20 ML VIAL ONE (15:24)
[2018-01-11] MEDS ORDERED: Ondansetron HCl/PF 4 MG/2 ML Vial ONE (15:24)
[2018-01-11] MEDS ORDERED: Dexamethasone 20 MG/5 ML VIAL ONE (15:24)
--- NOTE | 2018-01-11 15:45 | RAD ---
RETROGRADE PYELOGRAM: 01/11/18 HISTORY: Stent placement. A series of three films show bilateral ureter stent placement. Stents appear to be in satisfactory po sition. IMPRESSION: Placement of bilateral ureteral stents. There is an area of slight narrowing to the mid right ureter with a small round focus of contrast in this area. No stone is seen on the preliminary images. This c ould be related to the stricture area related to the previously noted ureteral calculus. POS: RAMIREZ
--- NOTE | 2018-01-11 20:29 | CON ---
DATE OF CONSULT: 01/11/18 HISTORY OF PRESENT ILLNESS: Patient is an 87-year-old woman with a history of atrial fibrillation/flutter who was found to have an infected kidney stones and underwent stent placement. The patient has a long history of atrial fibrillation/flutter. She is on chronic anticoagulation. She takes Eliquis. The patient also has had placement of electronic pacemaker. The patient following stent procedure was noted to have a rapid heart rate. The patient does report having occasional palpitations. She denies having any chest discomfort. PAST MEDICAL HISTORY: 1. Paroxysmal atrial fibrillation. 2. Nephrolithiasis. 3. Osteoporosis. 4. History of deep venous thrombosis. 5. Hypothyroidism. PAST SURGICAL HISTORY: 1. Cholecystectomy. 2. Appendectomy. 3. Hysterectomy. 4. Tonsillectomy. 5. Hip surgery, bilateral hip replacement. 6. Appendectomy. SOCIAL HISTORY: Former smoker. FAMILY HISTORY: There is a positive family history of coronary artery disease. MEDICATIONS ON ADMISSION: Apixaban 2.5 b.i.d., Xanax 0.25 daily, Synthroid 137 mcg daily, iron sulfate 325 daily, diltiazem 240 daily, Flomax 0.4 daily, trazodone 50 at bedtime, Detrol 2 mg p.o. b.i.d. REVIEW OF SYSTEMS: Ten point system noticeable for palpitations and mild dyspnea. The patient also reported having some mild fever. Ten-point system otherwise unremarkable. PHYSICAL EXAMINATION: GENERAL: Elderly woman in no acute distress. VITAL SIGNS: Blood pressure 124/61. NECK: No jugular venous distention. LUNGS: Clear to auscultation. HEART: Irregular rate and rhythm, normal S1, S2, no murmurs. ABDOMEN: Nondistended. EXTREMITIES: Showed no edema. SKIN: Warm and dry. NEUROLOGIC: Nonfocal. VASCULAR: Radial pulses are 2+. LABORATORY: Sodium was 134, potassium 4.8, chloride 110, bicarbonate 16, BUN 45 , creatinine is 2.94, glucose 137. White blood count 15.1, hemoglobin 12.4, hematocrit 38.3, platelets are 221. Her EKG revealed atrial flutter with variable AV block. carpet installer revealed an electronic pacemaker with inappropriate sensing. IMPRESSION: Patient is status post urological stent placement. She has had rapid atrial flutter. The patient will be restarted on her Cardizem. We will re-interrogate and adjust the patient's pacemaker. We will follow this patient with you through her hospitalization. STEPHANIE
[2018-01-11] MEDS: HYDROcodone/Acetaminophen 5/325 mg Tablet PO PRN (21:11)
[2018-01-12] MEDS: Sodium Chloride 0.9% 1,000 ML IV SCH ×2 (02:21→03:37)
[2018-01-12 04:54] LABS: #Lymphocytes 0.7 thou/uL (1.20-3.40); #Monocytes 0.2 thou/uL (0.11-0.59); #Neutrophils 12.4 thou/uL (1.40-6.50); %Eosinophils 0.2 % (0.0-10.0); %Lymphocytes 5.1 % (21.0-51.0); %Monocytes 1.4 % (0.0-10.0); %Neutrophils 93.3 % (42.0-75.0); Hemoglobin 10.4 g/dL (12.0-16.0); Mean Corpuscular HGB CONC 32.1 g/dL (32.0-36.0); Mean Corpuscular Hemoglobin 31.7 pg (27.0-31.0); Mean Corpuscular Volume 98.7 fl (81.0-99.0); Mean Platelet Volume 7.1 fL (7.4-10.4); Platelet Count 245 thou/uL (130-400); RBC Distribution Width 20.9 % (11.5-14.5); Red Blood Cell (RBC) Count 3.28 mill/uL (4.20-5.40); White Blood Cell (WBC) Count 13.3 thou/uL (4.8-10.8)
[2018-01-12 05:11] LABS: ALT (SGPT) 13 U/L (8-55); AST (SGOT) 17 U/L (5-34); Albumin 3.3 g/dL (3.4-4.8); Alkaline Phosphatase 71 U/L (40-150); Anion Gap 14 mmol/L (10-20); BUN (Urea Nitrogen) 39 mg/dL (9.8-20.1); Bilirubin, Total 0.2 mg/dL (0.2-1.2); Calc. Creatinine Clearance 15 mL/min (70-130); Calcium 8.4 mg/dL (7.8-10.44); Carbon Dioxide 15 mmol/L (23-31); Chloride 112 mmol/L (98-107); Estimated GFR-MDRD 20; Globulin 2.1 g/dL (2.4-3.5); Glucose 135 mg/dL (83-110); Potassium 5.2 mmol/L (3.5-5.1); Protein, Total 5.4 g/dL (6.0-8.3); Sodium 136 mmol/L (136-145)
[2018-01-12] MEDS ORDERED: Bisacodyl 10 MG SUPP PR PRN (07:33)
[2018-01-12] MEDS ORDERED: cloNIDine 0.1 MG TAB PO PRN (07:33)
[2018-01-12] MEDS: HYDROcodone/Acetaminophen 5/325 mg Tablet PO PRN ×3 (07:41→20:32)
[2018-01-12] MEDS: Saccharomyces boulardii 250 MG CAP PO SCH (07:41)
[2018-01-12] MEDS: ALPRAZolam 0.25 MG TAB PO SCH (07:52)
--- NOTE | 2018-01-12 08:06 | PRG ---
DATE OF SERVICE: 01/12/2018 SUBJECTIVE: Denies nausea, vomiting, chills. Her vague lower quadrant abdominal discomfort, well controlled. OBJECTIVE: VITAL SIGNS: Stable at 97.8, heart rate 92, 18, 96%, 151/65. I's and O's are 1670 in and 2875 out. ABDOMEN: Soft, nontender, nondistended. No CVA tenderness, no rigidity, no rebound. EXTREMITIES: No cyanosis, clubbing or edema. GENITOURINARY: Pompa catheter draining danna yellow urine, pink tinged. PERTINENT LABORATORY DATA: White count decreased from 15 to 13, BUN 39, creatinine decreased from 2.9- to 2.34. Urine culture is pending. 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 IMPRESSION AND PLAN: Ms. Thapa is an 87-year-old female previously followed by Dr. Leidy Sarah and had undergone numerous ureteroscopy, laser lithotripsy due to recurrent kidney stone, recently transferred care. 1. Prior history of urosepsis due to obstructing ureteral stone. 2. Current admission due to bilateral hydronephrosis, secondary to bilateral ureteral calculi. 3. Numerous bilateral kidney stones postop day #1 status post cystoscopy, bilateral ureteral stent placement. Patient clinically doing better with improvement of renal function, improved leukocytosis. Recommend Infectious Disease consult due to blood culture demonstrating VRE. Currently, she is stable. Cardiology consultation has been obtained due to history of rapid heart rate, history of atrial fibrillation /atrial flutter on Eliquis. From a urologic perspective, Eliquis can be restarted. She had an outpatient appointment with Dr. Soto for cardiac clearance to proceed with elective ureteroscopy, laser lithotripsy; however, admitted due to fever, bilateral hydronephrosis. Recommend Cardiology optimization as she will need to go further surgical intervention in the next few weeks, plan bilateral ureteroscopy, laser lithotripsy for ureteral stones. If needed may require a PICC line for IV antibiotic therapy pending final sensitivity. Recheck UA C&S from Pompa catheter has been obtained this morning, subsequently Pompa will be discontinued. She has followup appointment with me already in chart. Anticipate patient will be in house over the weekend due to Cardiology issues. May discharge when cleared by medical/Cardiology service. Dr. West covering me this weekend for p.r.n. issues. MTDD
[2018-01-12 08:27] LABS: Bilirubin Negative (Negative); Blood, Urine Large (Negative); Glucose, Urine (Dipstick) Negative (Negative); Leukocyte Moderate (Negative); Nitrite Negative (Negative); Protein, Urine (Dipstick) 100 mg/dL (Neg-Trace); Urobilinogen 0.2 mg/dL (0.2-1.0)
[2018-01-12 08:28] LABS: Clarity Cloudy (Clear)
[2018-01-12 08:39] LABS: Bacteria/HPF 1+ HPF (None Seen); RBC/HPF 21-50 HPF (0-3); Renal Epithelial 0-3 HPF (0-3); Transitional Epithelial 0-3 HPF (0-3); Yeast-All Forms 1+ HPF (None Seen)
[2018-01-12 08:40] LABS: Hyaline Casts/LPF 0-3 HYALINE CAST LPF (0-3 Hyaline); Other Casts/LPF 0-3 WBC CASTS LPF (0-3 Hyaline)
[2018-01-12] MEDS: Loratadine 10 MG TAB PO SCH (10:21)
[2018-01-12] MEDS: Multivit, Therapeutic 1 TAB PO SCH (10:21)
[2018-01-12] MEDS: Ferrous Sulfate 325 MG TAB PO SCH (10:21)
[2018-01-12] MEDS: Polyethylene Glycol 3350 17 GM Packet PO SCH (10:23)
--- NOTE | 2018-01-12 11:17 | PDOC.PN ---
- Subjective Encounter Start Date: 01/12/18 Encounter Start Time: 09:30 -: old records requested/rev Patient seen and examined for sepsis. No new complaints. No overnight events - Objective Resuscitation Status: Resuscitation Status FULL:Full Resuscitation MAR Reviewed: Yes Vital Signs & Weight: Vital Signs (12 hours) Temp Pulse Resp BP BP Pulse Ox 01/12/18 08:00 98.3 F 84 18 97 01/12/18 07:30 98.3 F 84 18 160/70 H 97 01/12/18 04:00 97.8 F 92 18 151/65 H 96 01/12/18 00:00 98.3 F 88 16 150/67 H 94 L Weight Weight 121 lb I&O: 01/11/18 01/12/18 01/13/18 06:59 06:59 06:59 Intake Total 1670 Output Total 2875 250 Balance -1205 -250 Result Diagrams: 01/12/18 04:18 01/12/18 04:18 EKG Reviewed by me: Yes (nsr) Phys Exam - Physical Examination Constitutional: NAD HEENT: PERRLA, moist MMs, sclera anicteric Neck: no JVD, supple Respiratory: no wheezing, no rales, no rhonchi Cardiovascular: RRR, no significant murmur, no rub Gastrointestinal: soft, non-tender, no distention, positive bowel sounds knowles + Musculoskeletal: no edema, pulses present Neurological: non-focal, normal sensation Lymphatic: no nodes Psychiatric: normal affect, A&O x 3 Skin: no rash, normal turgor Dx/Plan (1) Bacteremia due to Enterococcus Code(s): R78.81 - BACTEREMIA; B95.2 - ENTEROCOCCUS THE CAUSE OF DISEASES CLASSIFIED ELSEWHERE Status: Acute Comment: VRE (2) Acute worsening of stage 3 chronic kidney disease Code(s): N18.3 - CHRONIC KIDNEY DISEASE, STAGE 3 (MODERATE) Status: Acute (3) Atrial flutter with rapid ventricular response Code(s): I48.92 - UNSPECIFIED ATRIAL FLUTTER Status: Acute (4) Bilateral ureteral calculi Code(s): N20.1 - CALCULUS OF URETER Status: Acute Comment: (5) Complicated UTI (urinary tract infection) Code(s): N39.0 - URINARY TRACT INFECTION, SITE NOT SPECIFIED Status: Acute Comment: (6) Hydronephrosis, bilateral Code(s): N13.30 - UNSPECIFIED HYDRONEPHROSIS Status: Acute (7) Hyperchloremic acidosis Code(s): E87.2 - ACIDOSIS Status: Acute (8) S/P cystoscopy Status: Acute (9) Sepsis with acute organ dysfunction Code(s): A41.9 - SEPSIS, UNSPECIFIED ORGANISM; R65.20 - SEVERE SEPSIS WITHOUT SEPTIC SHOCK Status: Acute (10) Anemia, normocytic normochromic Code(s): D64.9 - ANEMIA, UNSPECIFIED Status: Chronic (11) Anxiety and depression Code(s): F41.9 - ANXIETY DISORDER, UNSPECIFIED; F32.9 - MAJOR DEPRESSIVE DISORDER, SINGLE EPISODE, UNSPECIFIED Status: Chronic (12) COPD (chronic obstructive pulmonary disease) Status: Chronic Qualifiers: Comment: No evidence of COPD exacerbation, O2 prn, Duonebs, add Dulera 2 puffs BID (13) Chronic anticoagulation Code(s): 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 Status: Chronic (14) GERD (gastroesophageal reflux disease) Code(s): K21.9 - GASTRO-ESOPHAGEAL REFLUX DISEASE WITHOUT ESOPHAGITIS Status: Chronic (15) HTN (hypertension) Code(s): I10 - ESSENTIAL (PRIMARY) HYPERTENSION Status: Chronic Qualifiers: Comment: Continue Diltiazem 240mg po daily, serial BP monitoring (16) Hypothyroidism Code(s): E03.9 - HYPOTHYROIDISM, UNSPECIFIED Status: Chronic - Plan cont current plan of care, continue antibiotics * EP consulted for atrial flutter for possible ablation * ID consulted for VRE bacteremia * continue meanwhile rocephin and levaquin, will defer antibiotics to ID * medication reviewed as below * symptomatic treatment * DC IVF * home medication reconciled * ambulate as tolerated * will resume elliquis when urology OK. Review of Systems - Review of Systems Eyes: negative: Pain, Vision Change, Conjunctivae Inflammation, Eyelid Inflammation, Redness, Other ENT: negative: Ear Pain, Ear Discharge, Nose Pain, Nose Discharge, Nose Congestion, Mouth Pain, Mouth Swelling, Throat Pain, Throat Swelling, Other Respiratory: negative: Cough, Dry, Shortness of Breath, Hemoptysis, SOB with Excertion, Pleuritic Pain, Sputum, Wheezing Cardiovascular: negative: chest pain, palpitations, orthopnea, paroxysmal nocturnal dyspnea, edema, light headedness, other Gastrointestinal: negative: Nausea, Vomiting, Abdominal Pain, Diarrhea, Constipation, Melena, Hematochezia, Other Genitourinary: negative: Dysuria, Frequency, Incontinence, Hematuria, Retention , Other Musculoskeletal: negative: Neck Pain, Shoulder Pain, Arm Pain, Back Pain, Hand Pain, Leg Pain, Foot Pain, Other - Medications/Allergies Allergies/Adverse Reactions: Allergies Allergy/AdvReac Type Severity Reaction Status Date / Time No Known Allergies Allergy Verified 12/27/17 12:06 Medications: Current Medications Acetaminophen (Tylenol) 650 mg PO Q4H PRN PRN Reason: Headache/Fever or Pain Hydrocodone Bitart/Acetaminophen ([place] 5/325) 1 tab PO Q4H PRN PRN Reason: Moderate Pain (4-6) Last Admin: 01/12/18 07:41 Dose: 1 tab Al Hydroxide/Mg Hydroxide (Maalox) 30 ml PO Q6H PRN PRN Reason: Heartburn or Indigestion Alprazolam (Xanax) 0.25 mg PO DAILY [facility] Last Admin: 01/12/18 07:52 Dose: 0.25 mg Artificial Tears (Tears Naturale) 0 drop EA EYE PRN PRN PRN Reason: Dry Eyes Bisacodyl (Dulcolax) 10 mg HI DAILY PRN PRN Reason: Constipation Calcium/Vitamin D (Caltrate 600 + Vit D) [address] [facility] Cholecalciferol (Vitamin D3) 1,000 units PO DAILY [facility] Last Admin: 01/12/18 07:52 Dose: 1,000 units Clonidine (Catapres) 0.1 mg PO Q4H PRN PRN Reason: SBP > 180 Diltiazem HCl (Cardizem Cd) 120 mg PO DAILY [facility] Last Admin: 01/12/18 07:41 Dose: 120 mg Ferrous Sulfate (Feosol) 325 mg PO DAILY [facility] Last Admin: 01/12/18 10:21 Dose: Not Given Guaifenesin (Robitussin Sf) 200 mg PO Q4H PRN PRN Reason: Cough Hydralazine HCl (Apresoline) 10 mg SLOW IVP Q4H PRN PRN Reason: Systolic BP > 180 Ceftriaxone Sodium 1 gm/ (Sodium Chloride) 100 mls @ 200 mls/hr IVPB Q24HR [facility] Last Admin: 01/11/18 13:19 Dose: Not Given Levofloxacin 500 mg/ Device 100 mls @ 100 mls/hr IVPB Q2D@1400 [facility] Levothyroxine Sodium (Synthroid) 112 mcg PO 0600 [facility] Levothyroxine Sodium (Synthroid) 25 mcg PO 0600 [facility] Loperamide HCl (Imodium) 2 mg PO PRN PRN PRN Reason: Diarrhea/Loose Stools Loratadine (Claritin) 10 mg PO DAILYPRN PRN PRN Reason: Sinus Symptoms Loratadine (Claritin) 10 mg PO DAILY [facility] Last Admin: 01/12/18 10:21 Dose: Not Given Magnesium Hydroxide (Milk Of Magnesium) 30 ml PO DAILYPRN PRN PRN Reason: Constipation Mineral Oil/White Petrolatum (Eucerin Cream) 0 gm TOP BIDPRN PRN PRN Reason: Dry Skin Morphine Sulfate (Morphine) 4 mg IV Q4H PRN PRN Reason: Pain Last Admin: 01/11/18 22:48 Dose: 4 mg Multivitamins (Theragran) 1 tab PO DAILY [facility] Last Admin: 01/12/18 10:21 Dose: Not Given Ondansetron HCl (Zofran Odt) 4 mg PO Q6H PRN PRN Reason: Nausea/Vomiting Ondansetron HCl (Zofran) 4 mg IVP Q6H PRN PRN Reason: Nausea/Vomiting Oxybutynin Chloride (Ditropan) 5 mg PO Q8H PRN PRN Reason: Bladder Spasms Pantoprazole Sodium (Protonix) 40 mg PO DAILY [facility] Last Admin: 01/12/18 07:43 Dose: 40 mg Phenol (Chloraseptic Parsons 180 Ml Bot) 0 ml PO PRN PRN PRN Reason: Sore Throat Polyethylene Glycol (Miralax) 17 gm PO DAILY [facility] Last Admin: 01/12/18 10:23 Dose: Not Given Saccharomyces Boulardii (Florastor) 250 mg PO DAILY [facility] Last Admin: 01/12/18 07:41 Dose: 250 mg Senna (Senokot) 2 tab PO HSPRN PRN PRN Reason: Constipation Sodium Chloride ([place] Nasal Parsons 0.65%) 0 ml EA NARE QIDPRN PRN PRN Reason: Nasal Congestion Sodium Chloride (Flush - Normal Saline) 10 ml IVF Q12HR [facility] Last Admin: 01/12/18 10:23 Dose: Not Given Sodium Chloride (Flush - Normal Saline) 10 ml IVF PRN PRN PRN Reason: Saline Flush Trazodone HCl (Desyrel) 50 mg PO HS MICHAEL Trospium (Trospium) 20 mg PO DAILY MICHA[facility] Zolpidem Tartrate (Ambien) 5 mg PO HSPRN PRN PRN Reason: Insomnia Last Admin: 01/11/18 22:48 Dose: 5 mg
[2018-01-12] MEDS ORDERED: Lidocaine 1% (PF) 30 ML VIAL ONE (11:45)
--- NOTE | 2018-01-12 14:09 | CON ---
DATE OF CONSULTATION: 01/12/2018 REQUESTING PHYSICIAN: Junior Pham M.D. REASON FOR CONSULTATION: Atrial fibrillation/atrial flutter. HISTORY OF PRESENT ILLNESS: Ms. Thapa is a very pleasant, elderly lady, a resident of a senior care with a longstanding history of atrial arrhythmias. She recently presented to the emergency room for abdominal and back pain. She was found to have an infected kidney as well as kidney stones. She un derwent stent placement on 01/11/2018. She has undergone CTI ablation for typical atrial flutter in the remote past, but was more recently found to have atypical flutter and atrial fibrillation circuit s as well. Her rate control was quite difficult. She had tachybrady syndrome and underwent dual-yash mber pacemaker implantation in 10/2017 for optimized arrhythmia management. Ultimately, at that time with limited options for antiarrhythmic therapy given her COPD, there is already a consideration for her need for an AV christy ablation if rate control proved difficult and the patient continued to have symptoms of fatigue, shortness of breath and poor rate control. She underwent cardioversion a coupl e weeks ago as an outpatient, but we find that she is again in atrial flutter and atrial fibrillation . Her pacemaker has been interrogated and report is available on the chart. Overall Ms. Thapa is currently without complaint. She denies any heart racing, palpitations, chest p ain, pressure, syncope or near syncopal episodes. She does continue to experience shortness of breat h as well as chronic fatigue. REVIEW OF SYSTEMS: Twelve point review of systems was conducted and is negative except that listed i n the history of present illness. PAST MEDICAL HISTORY: 1. Typical atrial flutter, status post CTI ablation by Dr. Valerio in 04/2015. 2. Paroxysmal atrial fibrillation. 3. Paroxysmal atypical atrial flutter. 4. Tachybrady syndrome, prompting dual chamber pacemaker implant by Dr. Acuña on 10/25/2017. 5. Chronic kidney disease, stage 3. 6. Hypertension. 7. Bilateral nephrolithiasis with prior stent placement and removal. 8. Chronic obstructive pulmonary disease with home oxygen. 9. Physical deconditioning. 10. DVT with chronic oral anticoagulation. 11. Chronic Eliquis 2.5 mg b.i.d. for stroke prophylaxis and DVT prevention. 12. Osteoporosis. PAST SURGICAL HISTORY: Cholecystectomy, appendectomy, hysterectomy, tonsillectomy, bilateral hip rep lacement and appendectomy. SOCIAL HISTORY: Former smoker. FAMILY HISTORY: Positive for coronary artery disease. HOME MEDICATIONS: Amlodipine 5 mg daily, ferrous sulfate 325 mg daily, levothyroxine 137 mcg daily, morphine 50 mg as needed, Requip 0.5 mg daily, trazodone 50 mg daily, Eliquis 2.5 mg b.i.d., calcium daily, clonidine 0.1 mg as needed for hypertension, MiraLax daily, diltiazem 180 mg daily, tamsulosin 0.4 mg p.o. at bedtime and DuoNeb 0.5/2.5 q.4 hours as needed. ALLERGIES: None. PHYSICAL EXAMINATION: GENERAL: This is a frail, elderly woman who is in no acute distress. She is alert and oriented. He r speech is clear. She is somewhat anxious with her affect. NECK: Supple without jugular venous distention. CARDIAC: Irregularly irregular without significant murmur, rub or gallop and the PMI is nondisplaced . LUNGS: Clear to auscultation bilaterally without wheezes, crackles or rhonchi. ABDOMEN: Soft, nontender. EXTREMITIES: Warm and dry to touch without clubbing, cyanosis or edema. NEUROLOGIC: Grossly intact and nonfocal. DATABASE: Recent laboratory was reviewed. Hemoglobin 10.4, hematocrit 32.4. Chemistry: Potassium 5.2, creatinine 2.34. Telemetry and EKG review; atypical flutter and atrial fibrillation with variable AV conduction. Occa sional sinus rhythm is seen. DEVICE INTERROGATION: The patient has a [employer] MRI compatible device that was implanted on 10/25/2017. Battery longevity is a good. Lead parameters are stable. Atrial arrhythmia burden is currently at 76%. Ventriculogram shows poor rate control with atrial arrhythmias largely greater than 100 beats per minute, otherwise device is functioning normally, minimal RV pacing. IMPRESSION: 1. Persistent atrial arrhythmias, unresponsive to Multaq in the past. Limited antiarrhythmic therap y options given her stage 3 renal disease as well as chronic obstructive pulmonary disease. Recent f janay cardioversion and very poor rate control with chronic symptoms of shortness of breath and fatig ue. 2. Dual chamber pacemaker in situ with normal functioning, reveals poor ventricular rate control, in creasing burden of atrial arrhythmias. 3. Chronic anticoagulation on Eliquis at 2.5 mg b.i.d. for age over 80 and weight less than 133 poun ds. RECOMMENDATIONS: At this point Ms. Thapa continues to have continued symptoms of shortness of breath and fatigue. This is likely multifactorial given her COPD and cannot be completely attributed to he r atrial arrhythmias. She has multiple atrial arrhythmia circuits and she continues to be a very poo r candidate for left atrial ablation. We have tried aggressive rate control in the past with diltiaz em as well as digoxin. However, her ventricular rate continues to largely sustained greater than 100 beats per minute. She recently underwent cardioversion, which has now failed and she is largely out of rhythm. At this point, it is not on a reasonable to move forward with an atrioventricular junct ion ablation. This has been discussed with Ms. Thapa and her sons in the past given the limited maria del rosario tment options for her. Her pacemaker has been in place and leads are well healed. Risks and benefit s of ablation were discussed with the patient as well as her son, Ananth. The risks include bleeding at the groin, damage to blood vessels, damage to the heart, damage to the lungs, need for surgery. The y are aware that post-ablation Ms. Thapa will be dependent on her pacemaker. All questions were answ ered. They both voiced understanding and agreed with this plan of care to move forward with the abla tion. Post-ablation, her AV christy blocking agents will no longer be required and may be weaned off a nd removed. We will move forward with AVJ ablation today. Thank you for allowing us to participate in the care of this patient.
[2018-01-12] MEDS ORDERED: PROPOFOL 200 MG/20 ML VIAL ONE (14:13)
[2018-01-12] MEDS: cefTRIAXone\\ROCEPHIN 1 GM in Sodium Chloride 0.9% 100 ML IVPB SCH (14:50)
[2018-01-12] MEDS: TROSPIUM 20 MG TABLET PO SCH (14:50)
[2018-01-12] MEDS: Linezolid 600 MG in Premix Bag 1 BAG IVPB SCH (18:08)
[2018-01-12] MEDS: traZODone HCl 50 MG TAB PO SCH (20:33)
[2018-01-12] MEDS: Calcium Carbonate + Vit D 1 TAB PO SCH (20:33)
[2018-01-12] MEDS ORDERED: Tamsulosin HCl 0.4 MG CAP PO SCH (21:00)
--- NOTE | 2018-01-12 21:35 | CON ---
DATE OF CONSULTATION: 01/12/2018 REASON FOR CONSULTATION: Urinary tract infection with obstruction. HISTORY OF PRESENT ILLNESS: An 87-year-old with history of prior DVT on Eliquis , COPD, recurrent nephrolithiasis, which has required intervention with stenting and lithotripsy in the past as well as antimicrobial therapy who developed worsening bilateral flank pain, nausea, vomiting, fever and chills, some dysuria, sent to the emergency room and a CT stone protocol showed bilateral hydronephrosis, large calculi in both ureters. Dr. Forrester has intervened with stents bilaterally. We have cultures with one set of blood cultures out of 2 with vancomycin-resistant Enterococcus. Prior urine cultures from 12/09/2017 with yeast and E. coli. E. coli had a broad susceptibility profile. She has had the yeast and urine cultures in 10/29/2017 and 10/01/2017 as well as 09/17/2017. She is feeling much improved at this time. REVIEW OF SYSTEMS: She denies any headaches, no visual symptoms, sore throat, odynophagia, dysphagia, no dyspnea or chest pain, no back pain. The left flank pain is still there. She is voiding with an indwelling Pompa catheter. PAST MEDICAL HISTORY: DVT, on Eliquis; COPD; nephrolithiasis, recurrent, which required stenting and lithotripsy in the past; renal insufficiency stage 3; GERD ; osteoporosis; hypothyroidism; back pain. Atrial arrhythmias, which required intervention in the past, but were mostly managed conservatively. PAST SURGICAL HISTORY: Cholecystectomy, appendectomy, hysterectomy, total hip right side, left side as well total hip. FAMILY HISTORY: Noncontributory. SOCIAL HISTORY: Former smoker, quit more than 10 years ago, resident at [facility]. CURRENT MEDICATIONS: Alprazolam, ceftriaxone, clonidine, linezolid. PHYSICAL EXAMINATION: VITAL SIGNS: T-max 98.4, blood pressure 150/69, pulse 80, respirations 16, O2 saturation 97%. GENERAL: Appears in no distress. She has a Pompa catheter and peripheral IV access. No lymphadenopathy. HEENT: Ocular movements are conjugate. Oral cavity with still quite a few teeth in place. NECK: Supple. No jugular venous distention. LUNGS: Clear to auscultation and percussion. HEART: S1, S2, regular rate. No murmurs. No S3, S4. ABDOMEN: Soft, not distended. She has a right access femoral site for the recent ablation procedure. This was completed by Dr. Acuña, I believe. EXTREMITIES: No joint inflammatory activity. Pulses 1+ in dorsalis pedis. She has normal strength in all 4 extremities. NEUROLOGIC: She is awake, oriented, follows commands, a little bit of difficulty in maintaining a conversation, some word finding difficulty, some difficulty with recollection. LABORATORY DATA: White cell count down from 15 to 13, hemoglobin down from 12 to 10, platelets stable at 245,000. Differential with neutrophil percentage of 93. Chemistry with a creatinine of 2.94, now at 2.34 and baseline is around 1.7. Liver profile normal. Albumin 4.3, globulin 2.7. Urinalysis with greater than 50 WBCs, 30 protein. IMAGING STUDIES: Include the abdomen and pelvis CT with bilateral hydronephrosis, large calculi in the proximal aspect of both ureters in the upper collecting structures with calculi as well. 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 Now, she has a recurrence of nephrolithiasis with bilateral obstruction status post stenting. DISCUSSION: The patient seems to have VRE and likely has polymicrobial salina in the areas of the obstruction. She most likely have the yeast in the E. coli there as well. Continue Rocephin, add Diflucan, add linezolid. Since she will need protracted treatment probably around 4 weeks, linezolid will likely be associated with significant amount of adverse reactions. Therefore, we will recommend a PICC line placement and probably IV daptomycin with Rocephin and Diflucan. Could use also Telavancin, Rocephin and Diflucan in the setting possibly in my office or maybe at [facility]. I do not know if they are going to have the equipment or the funding to administer it in [facility]. MTDD
[2018-01-13] MEDS: HYDROcodone/Acetaminophen 5/325 mg Tablet PO PRN ×6 (00:35→21:22)
[2018-01-13] MEDS: Linezolid 600 MG in Premix Bag 1 BAG IVPB SCH ×2 (05:06→16:05)
[2018-01-13] MEDS: Levothyroxine Sodium 25 MCG TAB PO SCH (05:07)
[2018-01-13] MEDS: Levothyroxine Sodium 112 MCG TAB PO SCH (05:07)
[2018-01-13] MEDS: Polyethylene Glycol 3350 17 GM Packet PO SCH (08:54)
[2018-01-13] MEDS: ALPRAZolam 0.25 MG TAB PO SCH (08:55)
[2018-01-13] MEDS: Ferrous Sulfate 325 MG TAB PO SCH (08:55)
[2018-01-13] MEDS: Fluconazole 100 MG TAB PO SCH (08:56)
[2018-01-13] MEDS: Loratadine 10 MG TAB PO SCH (08:57)
[2018-01-13] MEDS: Multivit, Therapeutic 1 TAB PO SCH (08:58)
[2018-01-13] MEDS: TROSPIUM 20 MG TABLET PO SCH (08:58)
[2018-01-13] MEDS: Saccharomyces boulardii 250 MG CAP PO SCH (08:58)
--- NOTE | 2018-01-13 09:25 | PDOC.PN ---
- Subjective Encounter Start Date: 01/13/18 Encounter Start Time: 06:50 Patient seen and examined for sepsis. No new complaints. No overnight events - Objective Resuscitation Status: Resuscitation Status FULL:Full Resuscitation MAR Reviewed: Yes Vital Signs & Weight: Vital Signs (12 hours) Temp Pulse Resp BP BP Pulse Ox 01/13/18 08:55 82 151/75 H 01/13/18 07:57 100 F H 82 20 151/75 H 95 01/13/18 04:00 99.2 F 80 18 155/76 H 97 01/12/18 23:08 99.6 F 85 18 149/73 H 93 L Weight Weight 121 lb I&O: 01/12/18 01/13/18 01/14/18 06:59 06:59 06:59 Intake Total 1670 2050 Output Total 2875 1360 Balance -1205 690 Result Diagrams: 01/12/18 04:18 01/12/18 04:18 EKG Reviewed by me: Yes (atrial flutter) Phys Exam - Physical Examination Constitutional: NAD HEENT: PERRLA, moist MMs, sclera anicteric Neck: no JVD, supple Respiratory: no wheezing, no rales, no rhonchi Cardiovascular: no significant murmur, irregular Gastrointestinal: soft, non-tender, no distention, positive bowel sounds Musculoskeletal: no edema, pulses present Neurological: non-focal, normal sensation, moves all 4 limbs Lymphatic: no nodes Psychiatric: normal affect, A&O x 3 Skin: no rash, normal turgor Dx/Plan (1) Bacteremia due to Enterococcus Code(s): R78.81 - BACTEREMIA; B95.2 - ENTEROCOCCUS THE CAUSE OF DISEASES CLASSIFIED ELSEWHERE Status: Acute Comment: VRE (2) Acute worsening of stage 3 chronic kidney disease Code(s): N18.3 - CHRONIC KIDNEY DISEASE, STAGE 3 (MODERATE) Status: Acute (3) Atrial flutter with rapid ventricular response Code(s): I48.92 - UNSPECIFIED ATRIAL FLUTTER Status: Acute (4) Bilateral ureteral calculi Code(s): N20.1 - CALCULUS OF URETER Status: Acute Comment: (5) Complicated UTI (urinary tract infection) Code(s): N39.0 - URINARY TRACT INFECTION, SITE NOT SPECIFIED Status: Acute Comment: (6) Hydronephrosis, bilateral Code(s): N13.30 - UNSPECIFIED HYDRONEPHROSIS Status: Acute (7) Hyperchloremic acidosis Code(s): E87.2 - ACIDOSIS Status: Acute (8) S/P cystoscopy Status: Acute (9) Sepsis with acute organ dysfunction Code(s): A41.9 - SEPSIS, UNSPECIFIED ORGANISM; R65.20 - SEVERE SEPSIS WITHOUT SEPTIC SHOCK Status: Acute (10) Anemia, normocytic normochromic Code(s): D64.9 - ANEMIA, UNSPECIFIED Status: Chronic (11) Anxiety and depression Code(s): F41.9 - ANXIETY DISORDER, UNSPECIFIED; F32.9 - MAJOR DEPRESSIVE DISORDER, SINGLE EPISODE, UNSPECIFIED Status: Chronic (12) COPD (chronic obstructive pulmonary disease) Status: Chronic Qualifiers: Comment: No evidence of COPD exacerbation, O2 prn, Duonebs, add Dulera 2 puffs BID (13) Chronic anticoagulation Code(s): Z79.01 - PRISON (CURRENT) USE OF ANTICOAGULANTS Status: Chronic (14) GERD (gastroesophageal reflux disease) Code(s): K21.9 - GASTRO-ESOPHAGEAL REFLUX DISEASE WITHOUT ESOPHAGITIS Status: Chronic (15) HTN (hypertension) Code(s): I10 - ESSENTIAL (PRIMARY) HYPERTENSION Status: Chronic Qualifiers: Comment: Continue Diltiazem 240mg po daily, serial BP monitoring (16) Hypothyroidism Code(s): E03.9 - HYPOTHYROIDISM, UNSPECIFIED Status: Chronic - Plan cont current plan of care, continue antibiotics, marriage and family social worker * continue zyvox, diflucan and rocephin as per ID * EP recommendation noted. * PICC line today * social work to arrange outpt IV antibiotics * medication reviewed as below * symptomatic treatment Review of Systems - Review of Systems Constitutional: fever. negative: chills, sweats, weakness, malaise, other ENT: negative: Ear Pain, Ear Discharge, Nose Pain, Nose Discharge, Nose Congestion, Mouth Pain, Mouth Swelling, Throat Pain, Throat Swelling, Other Respiratory: negative: Cough, Dry, Shortness of Breath, Hemoptysis, SOB with Excertion, Pleuritic Pain, Sputum, Wheezing Cardiovascular: negative: chest pain, palpitations, orthopnea, paroxysmal nocturnal dyspnea, edema, light headedness, other Gastrointestinal: negative: Nausea, Vomiting, Abdominal Pain, Diarrhea, Constipation, Melena, Hematochezia, Other Genitourinary: negative: Dysuria, Frequency, Incontinence, Hematuria, Retention , Other Musculoskeletal: negative: Neck Pain, Shoulder Pain, Arm Pain, Back Pain, Hand Pain, Leg Pain, Foot Pain, Other Skin: negative: Rash, Lesions, Casey, Bruising, Other - Medications/Allergies Allergies/Adverse Reactions: Allergies Allergy/AdvReac Type Severity Reaction Status Date / Time No Known Allergies Allergy Verified 12/27/17 12:06 Medications: Current Medications Acetaminophen (Tylenol) 650 mg PO Q4H PRN PRN Reason: Headache/Fever or Pain Hydrocodone Bitart/Acetaminophen ([place] 5/325) 1 tab PO Q4H PRN PRN Reason: Moderate Pain (4-6) Last Admin: 01/13/18 08:59 Dose: 1 tab Al Hydroxide/Mg Hydroxide (Maalox) 30 ml PO Q6H PRN PRN Reason: Heartburn or Indigestion Alprazolam (Xanax) 0.25 mg PO DAILY [facility] Last Admin: 01/13/18 08:55 Dose: 0.25 mg Artificial Tears (Tears Naturale) 0 drop EA EYE PRN PRN PRN Reason: Dry Eyes Bisacodyl (Dulcolax) 10 mg MT DAILY PRN PRN Reason: Constipation Calcium/Vitamin D (Caltrate 600 + Vit D) 1 tab PO HS [facility] Last Admin: 01/12/18 20:33 Dose: 1 tab Cholecalciferol (Vitamin D3) 1,000 units PO DAILY [facility] Last Admin: 01/13/18 08:55 Dose: 1,000 units Clonidine (Catapres) 0.1 mg PO Q4H PRN PRN Reason: SBP > 180 Diltiazem HCl (Cardizem Cd) 120 mg PO DAILY [facility] Last Admin: 01/13/18 08:55 Dose: 120 mg Ferrous Sulfate (Feosol) 325 mg PO DAILY [facility] Last Admin: 01/13/18 08:55 Dose: 325 mg Fluconazole (Diflucan) 200 mg PO DAILY [facility] Last Admin: 01/13/18 08:56 Dose: 200 mg Guaifenesin (Robitussin Sf) 200 mg PO Q4H PRN PRN Reason: Cough Hydralazine HCl (Apresoline) 10 mg SLOW IVP Q4H PRN PRN Reason: Systolic BP > 180 Ceftriaxone Sodium 1 gm/ (Sodium Chloride) 100 mls @ 200 mls/hr IVPB Q24HR [facility] Last Admin: 01/12/18 14:50 Dose: 100 mls Linezolid 600 mg/ Device 300 mls @ 150 mls/hr IVPB 0500,1700 [facility] Last Admin: 01/13/18 05:06 Dose: 300 mls Levothyroxine Sodium (Synthroid) 112 mcg PO 0600 [facility] Last Admin: 01/13/18 05:07 Dose: 112 mcg Levothyroxine Sodium (Synthroid) 25 mcg PO 0600 [facility] Last Admin: 01/13/18 05:07 Dose: 25 mcg Loperamide HCl (Imodium) 2 mg PO PRN PRN PRN Reason: Diarrhea/Loose Stools Loratadine (Claritin) 10 mg PO DAILYPRN PRN PRN Reason: Sinus Symptoms Loratadine (Claritin) 10 mg PO DAILY [facility] Last Admin: 01/13/18 08:57 Dose: 10 mg Magnesium Hydroxide (Milk Of Magnesium) 30 ml PO DAILYPRN PRN PRN Reason: Constipation Mineral Oil/White Petrolatum (Eucerin Cream) 0 gm TOP BIDPRN PRN PRN Reason: Dry Skin Morphine Sulfate (Morphine) 4 mg IV Q4H PRN PRN Reason: Pain Last Admin: 01/11/18 22:48 Dose: 4 mg Multivitamins (Theragran) 1 tab PO DAILY [facility] Last Admin: 01/13/18 08:58 Dose: 1 tab Ondansetron HCl (Zofran Odt) 4 mg PO Q6H PRN PRN Reason: Nausea/Vomiting Ondansetron HCl (Zofran) 4 mg IVP Q6H PRN PRN Reason: Nausea/Vomiting Oxybutynin Chloride (Ditropan) 5 mg PO Q8H PRN PRN Reason: Bladder Spasms Pantoprazole Sodium (Protonix) 40 mg PO DAILY [facility] Last Admin: 01/13/18 08:58 Dose: 40 mg Phenol (Chloraseptic [place] 180 Ml Bot) 0 ml PO PRN PRN PRN Reason: Sore Throat Polyethylene Glycol (Miralax) 17 gm PO DAILY [facility] Last Admin: 01/13/18 08:54 Dose: Not Given Saccharomyces Boulardii (Florastor) 250 mg PO DAILY [facility] Last Admin: 01/13/18 08:58 Dose: 250 mg Senna (Senokot) 2 tab PO HSPRN PRN PRN Reason: Constipation Sodium Chloride (B[place]um Nasal [place] 0.65%) 0 ml EA NARE QIDPRN PRN PRN Reason: Nasal Congestion Sodium Chloride (Flush - Normal Saline) 10 ml IVF Q12HR [facility] Last Admin: 01/13/18 08:58 Dose: 10 ml Sodium Chloride (Flush - Normal Saline) 10 ml IVF PRN PRN PRN Reason: Saline Flush Trazodone HCl (Desyrel) 50 mg PO HS [facility] Last Admin: 01/12/18 20:33 Dose: 50 mg Trospium (Trospium) 20 mg PO DAILY [facility] Last Admin: 01/13/18 08:58 Dose: 20 mg Zolpidem Tartrate (Ambien) 5 mg PO HSPRN PRN PRN Reason: Insomnia Last Admin: 01/11/18 22:48 Dose: 5 mg
[2018-01-13] MEDS: cefTRIAXone\\ROCEPHIN 1 GM in Sodium Chloride 0.9% 100 ML IVPB SCH (13:16)
--- NOTE | 2018-01-13 20:49 | PDOC.CTH ---
Cardiology Progress Note - Subjective Doing well. SOB at baseline. - Objective Vital Signs Temp Pulse Resp BP BP Pulse Ox 01/13/18 16:00 99.6 F 80 20 174/74 H 95 01/13/18 13:16 183/78 H 01/13/18 11:44 98.3 F 86 20 183/78 H 95 01/13/18 08:55 82 151/75 H Weight 121 lb 01/12/18 01/13/18 01/14/18 06:59 06:59 06:59 Intake Total 1670 2050 1340 Output Total 2875 1360 1120 Balance -1205 690 220 - Physical Examination General/Neuro: alert & oriented x3, NAD Neck: no JVD present Lungs: unlabored respirations Heart: other: (Irreg) Abdomen: NT/ND Extremities: other: (no edema) - Telemetry Telemetry Rhythm: SVT - Labs Result Diagrams: 01/12/18 04:18 01/12/18 04:18 Troponin/CKMB CK-MB (CK-2) 1.9 ng/mL (0-6.6) 01/11/18 04:52 Troponin I Less than 0.010 ng/mL (< 0.028) 01/11/18 04:52 - Assessment/Plan 1. Atrial arrhythmias 2. 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 COPD 4. UTI complicated. 5. Renal stones, multiple with hydronephrosis s/p stents. PLAN: - AVJ Ablation planned. - Abx per primary team and ID.
[2018-01-13] MEDS: Calcium Carbonate + Vit D 1 TAB PO SCH (21:22)
[2018-01-13] MEDS: Apixaban 5 MG TAB PO SCH (21:22)
[2018-01-13] MEDS: traZODone HCl 50 MG TAB PO SCH (21:23)
[2018-01-14] MEDS: HYDROcodone/Acetaminophen 5/325 mg Tablet PO PRN ×6 (01:13→21:52)
[2018-01-14] MEDS: Levothyroxine Sodium 25 MCG TAB PO SCH (05:18)
[2018-01-14] MEDS: Linezolid 600 MG in Premix Bag 1 BAG IVPB SCH (05:18)
[2018-01-14] MEDS: Levothyroxine Sodium 112 MCG TAB PO SCH (05:18)
[2018-01-14] MEDS: Fluconazole 100 MG TAB PO SCH (08:19)
[2018-01-14] MEDS: Multivit, Therapeutic 1 TAB PO SCH (08:19)
[2018-01-14] MEDS: Saccharomyces boulardii 250 MG CAP PO SCH (08:20)
[2018-01-14] MEDS: Loratadine 10 MG TAB PO SCH (08:20)
[2018-01-14] MEDS: ALPRAZolam 0.25 MG TAB PO SCH (08:20)
[2018-01-14] MEDS: Apixaban 5 MG TAB PO SCH ×2 (08:20→20:50)
[2018-01-14] MEDS: Ferrous Sulfate 325 MG TAB PO SCH (08:20)
[2018-01-14] MEDS: TROSPIUM 20 MG TABLET PO SCH (08:20)
[2018-01-14] MEDS: Polyethylene Glycol 3350 17 GM Packet PO SCH (08:21)
[2018-01-14] MEDS ORDERED: Linezolid 600 MG in Premix Bag 1 BAG IVPB SCH (09:00)
[2018-01-14] MEDS: Fluconazole In NaCl,Iso-Osm 200 MG in Premix Bag 1 BAG IVPB SCH (09:18)
[2018-01-14] MEDS: cefTRIAXone\\ROCEPHIN 1 GM in Sodium Chloride 0.9% 100 ML IVPB SCH (10:07)
--- NOTE | 2018-01-14 14:01 | PDOC.CTH ---
Cardiology Progress Note - Subjective No new issues. HR well controlled. - Objective Vital Signs Temp Pulse Resp BP BP Pulse Ox 01/14/18 11:33 98.7 F 81 16 138/70 97 01/14/18 08:19 80 127/68 01/14/18 08:00 97.9 F 80 16 127/68 97 01/14/18 07:56 97.9 F 80 16 127/68 97 01/14/18 03:24 97.9 F 80 16 111/62 97 01/14/18 02:10 94 L Weight 121 lb 01/13/18 01/14/18 01/15/18 06:59 06:59 06:59 Intake Total 2050 1840 Output Total 1360 1120 250 Balance 690 720 -250 - Physical Examination General/Neuro: alert & oriented x3, NAD Neck: no JVD present Lungs: unlabored respirations Heart: RRR Abdomen: NT/ND Extremities: other: (no edema) - Telemetry Telemetry Rhythm: NSR - Labs Result Diagrams: 01/12/18 04:18 01/12/18 04:18 Troponin/CKMB CK-MB (CK-2) 1.9 ng/mL (0-6.6) 01/11/18 04:52 Troponin I Less than 0.010 ng/mL (< 0.028) 01/11/18 04:52 - Assessment/Plan 1. Atrial arrhythmias s/p AVJ ablation. 2. 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 COPD 4. UTI complicated. 5. Renal stones, multiple with hydronephrosis s/p stents. PLAN: - AVJ Ablation performed on 01/12. - Abx per primary team and ID.
[2018-01-14 14:33] LABS: #Eosinphils 0.2 thou/uL (0.0-0.7); #Lymphocytes 1.2 thou/uL (1.20-3.40); #Monocytes 0.8 thou/uL (0.11-0.59); #Neutrophils 5.3 thou/uL (1.40-6.50); %Basophils 0.2 % (0.0-1.0); %Eosinophils 3.2 % (0.0-10.0); %Lymphocytes 15.9 % (21.0-51.0); %Monocytes 10.2 % (0.0-10.0); %Neutrophils 70.5 % (42.0-75.0); Anisocytosis SLIGHT = 6-15 cells (100X) (0-5/hpf); Hemoglobin 10.3 g/dL (12.0-16.0); MDiff Complete? YES; Mean Corpuscular HGB CONC 33.1 g/dL (32.0-36.0); Mean Corpuscular Hemoglobin 32.3 pg (27.0-31.0); Mean Corpuscular Volume 97.5 fl (81.0-99.0); Mean Platelet Volume 6.5 fL (7.4-10.4); PLT Morphology Comment Appears Adequate; Platelet Count 252 thou/uL (130-400); RBC Distribution Width 20.6 % (11.5-14.5); Red Blood Cell (RBC) Count 3.19 mill/uL (4.20-5.40); White Blood Cell (WBC) Count 7.6 thou/uL (4.8-10.8)
--- NOTE | 2018-01-14 15:09 | PDOC.PN ---
- Subjective Encounter Start Date: 01/14/18 Encounter Start Time: 13:30 Pt seen and examined, chart reviewed in its entirety, this is my first with this patient Pt complains of a little low, anterior abd pain, no F/c, no N/V/D/c, no CP or SOB all systems reviewed and neg x as above BCx X1 from admit with VRE and Ucx from 01/11 and 01/12 with yeast - Objective Resuscitation Status: Resuscitation Status FULL:Full Resuscitation MAR Reviewed: Yes Vital Signs & Weight: Vital Signs (12 hours) Temp Pulse Resp BP BP Pulse Ox 01/14/18 11:33 98.7 F 81 16 138/70 97 01/14/18 08:19 80 127/68 01/14/18 08:00 97.9 F 80 16 127/68 97 01/14/18 07:56 97.9 F 80 16 127/68 97 01/14/18 03:24 97.9 F 80 16 111/62 97 Weight Weight 121 lb I&O: 01/13/18 01/14/18 01/15/18 06:59 06:59 06:59 Intake Total 2050 1840 1300 Output Total 1360 1120 950 Balance 690 720 350 Result Diagrams: 01/14/18 13:59 01/12/18 04:18 Radiology Reviewed by me: Yes EKG Reviewed by me: Yes Phys Exam - Physical Examination Constitutional: NAD HEENT: PERRLA, moist MMs, sclera anicteric, oral pharynx no lesions Neck: no nodes, no JVD, supple, full ROM Respiratory: no wheezing, no rales, no rhonchi, clear to auscultation bilateral Cardiovascular: RRR, no significant murmur, no rub Gastrointestinal: soft, non-tender, no distention, positive bowel sounds Musculoskeletal: pulses present, edema present Neurological: non-focal, normal sensation, moves all 4 limbs Lymphatic: no nodes Psychiatric: normal affect, A&O x 3 Skin: no rash, normal turgor, cap refill <2 seconds Dx/Plan (1) Acute worsening of stage 3 chronic kidney disease Code(s): N18.3 - CHRONIC KIDNEY DISEASE, STAGE 3 (MODERATE) Status: Chronic (2) Bacteremia due to Enterococcus Code(s): R78.81 - BACTEREMIA; B95.2 - ENTEROCOCCUS THE CAUSE OF DISEASES CLASSIFIED ELSEWHERE Status: Acute Comment: VRE on culture, Zyvox started (3) Bilateral ureteral calculi Code(s): N20.1 - CALCULUS OF URETER Status: Acute Comment: (4) Hydronephrosis, bilateral Code(s): N13.30 - UNSPECIFIED HYDRONEPHROSIS Status: Acute (5) Sepsis with acute organ dysfunction Code(s): A41.9 - SEPSIS, UNSPECIFIED ORGANISM; R65.20 - SEVERE SEPSIS WITHOUT SEPTIC SHOCK Status: Acute (6) Anemia, normocytic normochromic Code(s): D64.9 - ANEMIA, UNSPECIFIED Status: Resolved (7) Anxiety and depression Code(s): F41.9 - ANXIETY DISORDER, UNSPECIFIED; F32.9 - MAJOR DEPRESSIVE DISORDER, SINGLE EPISODE, UNSPECIFIED Status: Chronic (8) COPD (chronic obstructive pulmonary disease) Status: Chronic Qualifiers: Comment: No evidence of COPD exacerbation, O2 prn, Duonebs, add Dulera 2 puffs BID (9) GERD (gastroesophageal reflux disease) Code(s): K21.9 - GASTRO-ESOPHAGEAL REFLUX DISEASE WITHOUT ESOPHAGITIS Status: Chronic (10) HTN (hypertension) Code(s): I10 - ESSENTIAL (PRIMARY) HYPERTENSION Status: Chronic Qualifiers: Hypertension type: essential hypertension Comment: Continue Diltiazem 240mg po daily, serial BP monitoring (11) Hypothyroidism Code(s): E03.9 - HYPOTHYROIDISM, UNSPECIFIED Status: Chronic Qualifiers: Hypothyroidism type: acquired Qualified Code(s): E03.9 - Hypothyroidism, unspecified - Plan cont current plan of care, continue antibiotics, PT/OT, director social welfare, out of bed/ambulate * .
[2018-01-14] MEDS: Linezolid 600 MG TAB PO SCH (18:00)
[2018-01-14] MEDS: traZODone HCl 50 MG TAB PO SCH (20:50)
[2018-01-14] MEDS: Calcium Carbonate + Vit D 1 TAB PO SCH (20:50)
--- NOTE | 2018-01-14 21:38 | PRG ---
DATE OF SERVICE: 01/14/2018 SUBJECTIVE: Feeling well. No headaches, no respiratory symptoms or abdominal pain, no flank pain. OBJECTIVE: VITAL SIGNS: Normal. T-max 98.4. LUNGS: Clear. CARDIOVASCULAR: S1, S2, regular rate. ABDOMEN: No tenderness in the abdominal area. LABORATORY DATA: White cell count down to 7.6, hemoglobin 10.3, platelets 252. Sodium 136, creatini ne 2.34. Liver profile normal. ASSESSMENT AND DISCUSSION: Chronic obstructive lung disease; chronic renal failure, stage 3-4; and r ecurrent nephrolithiasis with recurrence of obstruction, status post stenting bilaterally. The patie nt has a resistant pathogen i.e. VRE. She also has Lisa albicans in the urinary tract. The VRE h as spilled into the bloodstream. The options as previously mentioned that would be continue Zyvox. We will switch her to daptomycin plus Rocephin plus Diflucan. I have opted to continue Zyvox, switch her to oral Zyvox. Discontinue PICC line placement. Continue Diflucan as well orally. Monitor her CBC twice a week in the home setting. Plan to treat until completion of 4 weeks at least, according to the schedule associated with the planned lithotripsy by Dr. Forrester. The patient may develop adverse reactions to the Zyvox going forward that may want to be concerned which would be severe ane daniel, thrombocytopenia and so on. If those develop, then we will have to place a PICC line, which can be done in the outpatient setting and then transition her to daptomycin, probably will have to be gi chavez every other day, adjusted for renal function, plus Rocephin daily.
[2018-01-15] MEDS: HYDROcodone/Acetaminophen 5/325 mg Tablet PO PRN ×6 (02:07→22:05)
[2018-01-15] MEDS: Loperamide HCl 2 MG CAP PO PRN ×2 (02:07→17:59)
[2018-01-15 05:05] LABS: #Eosinphils 0.4 thou/uL (0.0-0.7); #Lymphocytes 1.4 thou/uL (1.20-3.40); #Monocytes 0.8 thou/uL (0.11-0.59); #Neutrophils 4.8 thou/uL (1.40-6.50); %Basophils 0.5 % (0.0-1.0); %Eosinophils 5.2 % (0.0-10.0); %Lymphocytes 18.9 % (21.0-51.0); %Neutrophils 64.4 % (42.0-75.0); Hemoglobin 10.8 g/dL (12.0-16.0); Mean Corpuscular HGB CONC 33.1 g/dL (32.0-36.0); Mean Corpuscular Hemoglobin 32.3 pg (27.0-31.0); Mean Corpuscular Volume 97.8 fl (81.0-99.0); Mean Platelet Volume 7.4 fL (7.4-10.4); Platelet Count 245 thou/uL (130-400); RBC Distribution Width 20.8 % (11.5-14.5); Red Blood Cell (RBC) Count 3.34 mill/uL (4.20-5.40); White Blood Cell (WBC) Count 7.4 thou/uL (4.8-10.8)
[2018-01-15 06:03] LABS: Anion Gap 10 mmol/L (10-20); BUN (Urea Nitrogen) 32 mg/dL (9.8-20.1); Calc. Creatinine Clearance 19 mL/min (70-130); Calcium 8.6 mg/dL (7.8-10.44); Carbon Dioxide 22 mmol/L (23-31); Chloride 110 mmol/L (98-107); Estimated GFR-MDRD 25; Glucose 97 mg/dL (83-110); Magnesium 2.1 mg/dL (1.6-2.6); Potassium 4.8 mmol/L (3.5-5.1); Sodium 137 mmol/L (136-145)
[2018-01-15] MEDS: Levothyroxine Sodium 112 MCG TAB PO SCH (06:10)
[2018-01-15] MEDS: Levothyroxine Sodium 25 MCG TAB PO SCH (06:10)
[2018-01-15] MEDS: Linezolid 600 MG TAB PO SCH ×2 (06:17→17:59)
[2018-01-15] MEDS: ALPRAZolam 0.25 MG TAB PO SCH (09:06)
[2018-01-15] MEDS: Polyethylene Glycol 3350 17 GM Packet PO SCH (09:06)
[2018-01-15] MEDS: Multivit, Therapeutic 1 TAB PO SCH (09:06)
[2018-01-15] MEDS: TROSPIUM 20 MG TABLET PO SCH (09:06)
[2018-01-15] MEDS: Saccharomyces boulardii 250 MG CAP PO SCH (09:06)
[2018-01-15] MEDS: Apixaban 5 MG TAB PO SCH ×2 (09:06→20:59)
[2018-01-15] MEDS: Ferrous Sulfate 325 MG TAB PO SCH (09:06)
[2018-01-15] MEDS: Fluconazole 100 MG TAB PO SCH (09:06)
[2018-01-15] MEDS: Loratadine 10 MG TAB PO SCH (09:07)
[2018-01-15] MEDS: Fluconazole In NaCl,Iso-Osm 200 MG in Premix Bag 1 BAG IVPB SCH (09:17)
--- NOTE | 2018-01-15 10:02 | PRG ---
DATE OF SERVICE: 01/15/2018 SUBJECTIVE: The patient is doing well. Denies chest pain or shortness of breath, no significant flank pain. PHYSICAL EXAMINATION: VITAL SIGNS: Stable, 98, 81, 16, 96, 142/72. ABDOMEN: Soft, nontender, nondistended, no rigidity, no rebound. CURRENT LABORATORY DATA: 1. 01/15/2018, white count 7.4, hemoglobin 10.8, platelets 245, BUN 32, creatinine is 1.9. 2. Urine culture 1 of 2 demonstrates vancomycin-resistant Enterococcus. 3. Urine culture, initial admission yeast. Repeat 01/12/2018 demonstrates yeast and VRE. Of note, prior urine culture demonstrates epithelia component consistent with contaminated specimen. IMPRESSION AND PLAN: Ms. Thapa is an 87-year-old female with history of recurrent kidney stones, previously followed by Dr. Forbes at [facility] 1. History of bilateral ureteral calculi, status post bilateral stent, postoperative day #4. 2. Atrial fibrillation/atrial flutter, status post ablation, currently on Eliquis. Appreciate Infectious Disease consult, per ID patient is on Diflucan and Zyvox. will obtain recheck UA C / S straight cath specimen today. From a urologic perspective, patient may be discharged back to her senior care [facility]. Has follow up with me to schedule elective ureteroscopy, laser lithotripsy. Recommend Cardiology, medical optimization. The patient will need to hold her Eliquis a few days periprocedural. Call if any questions or concerns. STEPHANIE
[2018-01-15 15:54] LABS: Bilirubin Negative (Negative); Blood, Urine Large (Negative); Clarity CLOUDY (Clear); Glucose, Urine (Dipstick) Negative (Negative); Leukocyte Large (Negative); Nitrite Negative (Negative); Protein, Urine (Dipstick) 100 mg/dL (Neg-Trace); Specific Gravity, Urine 1.008 (1.002-1.036); Urobilinogen 0.2 mg/dL (0.2-1.0); pH, Urine 6.5 (5.0-9.0)
[2018-01-15 15:56] LABS: Bacteria/HPF None Seen HPF (None Seen); RBC/HPF GREATER THAN 50-TNTC HPF (0-3); Squamous Epithelial 21-50 HPF (0-3)
[2018-01-15 16:00] LABS: Yeast-AUWi Flag 47.9 (0-25.0)
[2018-01-15 16:01] LABS: Pathc Cast-AUWi Flag 5.81 (0-2.49)
[2018-01-15 16:21] LABS: Hyaline Casts/LPF 0-3 HYALINE CAST LPF (0-3 Hyaline); Other Casts/LPF None Seen LPF (0-3 Hyaline)
[2018-01-15 16:22] LABS: Renal Epithelial 0-3 HPF (0-3); Transitional Epithelial 0-3 HPF (0-3); Yeast-All Forms None Seen HPF (None Seen)
[2018-01-15] MEDS: Calcium Carbonate + Vit D 1 TAB PO SCH (20:58)
[2018-01-15] MEDS: traZODone HCl 50 MG TAB PO SCH (20:58)
[2018-01-16] MEDS: HYDROcodone/Acetaminophen 5/325 mg Tablet PO PRN ×4 (02:30→15:07)
[2018-01-16] MEDS: Levothyroxine Sodium 112 MCG TAB PO SCH (06:02)
[2018-01-16] MEDS: Levothyroxine Sodium 25 MCG TAB PO SCH (06:02)
[2018-01-16] MEDS: Linezolid 600 MG TAB PO SCH (06:32)
[2018-01-16] MEDS: ALPRAZolam 0.25 MG TAB PO SCH (08:34)
[2018-01-16] MEDS: Apixaban 5 MG TAB PO SCH (08:34)
[2018-01-16] MEDS: Fluconazole 100 MG TAB PO SCH (08:35)
[2018-01-16] MEDS: TROSPIUM 20 MG TABLET PO SCH (08:36)
[2018-01-16] MEDS: Saccharomyces boulardii 250 MG CAP PO SCH (08:37)
[2018-01-16] MEDS: Ferrous Sulfate 325 MG TAB PO SCH (08:37)
[2018-01-16] MEDS: Multivit, Therapeutic 1 TAB PO SCH (08:37)
[2018-01-16] MEDS: Loratadine 10 MG TAB PO SCH (08:38)
[2018-01-16] MEDS: Fluconazole In NaCl,Iso-Osm 200 MG in Premix Bag 1 BAG IVPB SCH (08:38)
[2018-01-16] MEDS: Polyethylene Glycol 3350 17 GM Packet PO SCH (08:39)
--- NOTE | 2018-01-16 10:51 | PDOC.CTH ---
Cardiology Progress Note - Subjective EP progress note: Patient seen and evaluated. No new cardiac concerns or complaints. Likely DC today once arrangements are in order. Feels well and eager to go home. - Objective Vital Signs Temp Pulse Resp BP BP Pulse Ox 01/16/18 08:34 81 142/74 H 01/16/18 08:00 98.5 F 81 18 142/74 H 97 01/16/18 04:00 97.6 F 82 18 148/77 H 97 01/16/18 00:00 97.9 F 79 18 141/74 H 98 Weight 121 lb 01/15/18 01/16/18 01/17/18 06:59 06:59 06:59 Intake Total 1875 1400 Output Total 1805 220 Balance 70 1180 - Physical Examination General/Neuro: alert & oriented x3, NAD Neck: no JVD present Lungs: CTA, unlabored respirations Abdomen: NT/ND, soft - Telemetry Telemetry Rhythm: AF, TANNING WHEEL FILLER - Labs Result Diagrams: 01/15/18 04:32 01/15/18 04:32 Troponin/CKMB CK-MB (CK-2) 1.9 ng/mL (0-6.6) 01/11/18 04:52 Troponin I Less than 0.010 ng/mL (< 0.028) 01/11/18 04:52 - Assessment/Plan 1. Long standing persistent atrial fibrillation & atypical flutter with extremely poor rate control. S/P AVJ ablation on 01/12/18. Continue OAC- Eliquis 2.5mg BID 2. 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 Off betablockers but remains on diltiazem. No further need for AV christy blocking agents from EP perspective. Ok for DC by EP. follow up in 4-6 weeks requested.
--- NOTE | 2018-01-16 13:08 | PDOC.PN ---
- Subjective Encounter Start Date: 01/15/18 Encounter Start Time: 09:40 -: old records requested/rev Pt seen and examined, much less abd discomfort today. no f/C, no N/V/D?C, no CP or SOB. Case discussed with Dr Chinchilla. plan to leave stents in for now, laser litho in 3-4 weeks then pull stents. Discussed with Dr betancourt, recommended 28 days Zyvox if coud be approved. awaiting insurance preauth. all systems reviewed and neg x as above - Objective Resuscitation Status: Resuscitation Status FULL:Full Resuscitation MAR Reviewed: Yes Vital Signs & Weight: Vital Signs (12 hours) Temp Pulse Resp BP BP Pulse Ox 01/16/18 11:50 98.2 F 80 16 164/72 H 97 01/16/18 08:39 98.5 F 80 18 97 01/16/18 08:34 81 142/74 H 01/16/18 08:00 98.5 F 81 18 142/74 H 97 01/16/18 04:00 97.6 F 82 18 148/77 H 97 Weight Weight 121 lb I&O: 01/15/18 01/16/18 01/17/18 06:59 06:59 06:59 Intake Total 1875 1400 Output Total 1805 220 Balance 70 1180 Result Diagrams: 01/15/18 04:32 01/15/18 04:32 Radiology Reviewed by me: Yes EKG Reviewed by me: Yes Phys Exam - Physical Examination Constitutional: NAD HEENT: PERRLA, moist MMs, sclera anicteric, oral pharynx no lesions Neck: no nodes, no JVD, supple, full ROM Respiratory: no wheezing, no rales, no rhonchi, clear to auscultation bilateral Cardiovascular: RRR, no significant murmur, no rub Gastrointestinal: soft, non-tender, no distention, positive bowel sounds Musculoskeletal: no edema, pulses present Neurological: non-focal, normal sensation, moves all 4 limbs Lymphatic: no nodes Psychiatric: normal affect, A&O x 3 Skin: no rash, normal turgor, cap refill <2 seconds Dx/Plan (1) Acute worsening of stage 3 chronic kidney disease Code(s): N18.3 - CHRONIC KIDNEY DISEASE, STAGE 3 (MODERATE) Status: Chronic Comment: with acut einjury onCKD - pt Cr down since stents placed. continue to follow. (2) Bacteremia due to Enterococcus Code(s): R78.81 - BACTEREMIA; B95.2 - ENTEROCOCCUS THE CAUSE OF DISEASES CLASSIFIED ELSEWHERE Status: Acute Comment: VRE on culture, Zyvox started (3) Bilateral ureteral calculi Code(s): N20.1 - CALCULUS OF URETER Status: Acute Comment: s/p bilaterla dbl J stents, leave in, laser litho in 3-4 weeks (4) Hydronephrosis, bilateral Code(s): N13.30 - UNSPECIFIED HYDRONEPHROSIS Status: Acute (5) Sepsis with acute organ dysfunction Code(s): A41.9 - SEPSIS, UNSPECIFIED ORGANISM; R65.20 - SEVERE SEPSIS WITHOUT SEPTIC SHOCK Status: Acute Comment: resolving (6) Anemia, normocytic normochromic Code(s): D64.9 - ANEMIA, UNSPECIFIED Status: Resolved (7) Anxiety and depression Code(s): F41.9 - ANXIETY DISORDER, UNSPECIFIED; F32.9 - MAJOR DEPRESSIVE DISORDER, SINGLE EPISODE, UNSPECIFIED Status: Chronic (8) COPD (chronic obstructive pulmonary disease) Status: Chronic Qualifiers: COPD type: emphysema Comment: No evidence of COPD exacerbation, O2 prn, Duonebs, add Dulera 2 puffs BID (9) GERD (gastroesophageal reflux disease) Code(s): K21.9 - GASTRO-ESOPHAGEAL REFLUX DISEASE WITHOUT ESOPHAGITIS Status: Chronic Qualifiers: Esophagitis presence: without esophagitis Qualified Code(s): K21.9 - Gastro -esophageal reflux disease without esophagitis (10) HTN (hypertension) Code(s): I10 - ESSENTIAL (PRIMARY) HYPERTENSION Status: Chronic Qualifiers: Hypertension type: essential hypertension Comment: Continue Diltiazem 240mg po daily, serial BP monitoring (11) Hypothyroidism Code(s): E03.9 - HYPOTHYROIDISM, UNSPECIFIED Status: Chronic Qualifiers: Hypothyroidism type: acquired Qualified Code(s): E03.9 - Hypothyroidism, unspecified - Plan cont current plan of care * .
--- NOTE | 2018-01-16 14:23 | DIS ---
PRIMARY CARE PHYSICIAN: Devi Cardenas M.D. PRIMARY PROCESS LABORATORY SPECIALIST: Mykel Castillo MD DATE OF ADMISSION: 01/11/2018 DATE OF DISCHARGE: 01/16/2018 DISCHARGE DIAGNOSES: 1. Bilateral nephrolithiasis with ureteral outlet obstruction. 2. Bilateral hydronephrosis. 3. Acute kidney injury. 4. Chronic kidney disease stage 3. 5. Vancomycin-resistant Enterococcus urinary tract infection, complicated with bacteremia. 6. Vancomycin-resistant Enterococcus bacteremia. 7. Severe sepsis with end-organ dysfunction, present on admission, resolved. 8. Anxiety disorder, chronic. 9. Essential hypertension. 10. Anemia of renal disease. 11. Gastroesophageal reflux disease without esophagitis. 12. Chronic osteoporosis. 13. Chronic low back pain. 14. Hypothyroidism. CONSULTATIONS: 1. Dr. Forrester on 01/11/2018 in the emergency department. 2. Dr. Junior Pham on 01/11/2018 in the emergency department. 3. Electrophysiology, Dr. Bran Acuña, 01/12/2018. 4. Infectious Disease, Dr. Trey Lipscomb, 01/12/2018. PROCEDURES: Cystoscopy, ureteroscopy, double-J stent placement bilaterally by Dr. Forrester on . HISTORY AND PHYSICAL: Ms. Thapa is an 87-year-old female who presented to Emergency Department on with sepsis, UTI and flank pain. She was having fevers and chills at home, nausea, vomiting, burning when she urinates without hematur ia and was feeling weak. She presented to the emergency Department for evaluation where she was foun d to have white blood cell count of 15.1, reactive urine, and a CT scan of the abdomen showed a large stone bilaterally in the proximal ureters with bilateral hydronephrosis. We were subsequently called for admission. HOSPITAL COURSE: The patient was seen and examined by Dr. Estrada Pond and was admitted inpatient. Dr. Pham from Cardiology was consulted as well as Dr. Forrester from Urology. Dr. Forrester saw the patient in the Emergency Department, took her to the cystoscopy that night fo r double-J stent placement. Dr. Pham was consulted and saw her that afternoon for rapid atrial f lutter. She was restarted on Cardizem post-procedure and otherwise was doing well and no other curre nt complaints. By 01/12, her kidney function was improving. She has good urine output and her white count was improving. A urine culture was positive for gram positive cocci as well as a blood cultur e. She was continued on vancomycin and cefepime. By 01/13/2018, urine culture was growing Enterococcus. Antibiotics were continued as before and hemo dynamically remained stable. On 01/14, we took the case over. Urine culture positive for VRE and yeast, blood culture positive fo r VRE. She was transitioned over to Zyvox 600 mg q.12 hours and tolerated it well. On 01/15, her creatinine was improving, almost back to normal, she was doing much better and was aski ng to go home. I would begin the process of getting her preapproval for her Zyvox which require prio r authorization. The patient was kept until approval was obtained on 01/16/2018 was otherwise stable for discharge yessy k to her assisted living center. PHYSICAL EXAMINATION: The patient was seen and examined on the day of discharge. Discharge plan and disposition was discussed with the patient face to face at bedside. DISCHARGE MEDICATIONS: NEW MEDICATIONS: Zyvox 600 mg p.o. b.i.d. for 20 more days, 40 tablets sent to her pharmacy. PREVIOUS MEDICINES TO CONTINUE: 1. Xanax 0.25 mg p.o. daily. 2. Eliquis 2.5 mg p.o. b.i.d. 3. Bisacodyl 10 mg rectally daily. 4. Calcium carbonate/vitamin D3 of 600/400 one tablet p.o. at bedtime. 5. Cholecalciferol 1000 units p.o. daily. 6. Clonidine 0.1 mg p.o. q.4 hours p.r.n. elevated blood pressure greater than 180. 7. Iron sulfate 325 mg p.o. daily. 8. Fluconazole 200 mg p.o. daily for 10 more days. A new prescription sent. 9. Levothyroxine 137 mcg p.o. daily. 10. Claritin 10 mg p.o. daily. 11. Multivitamin Theragran 1 tablet p.o. daily. 12. MiraLax 17 grams p.o. daily. 13. Detrol 2 mg p.o. b.i.d. 14. Trazodone 50 mg p.o. at bedtime. 15. Tylenol 1000 mg p.o. q.6 hours p.r.n. 16. Diltiazem ER 240 mg p.o. daily. 17. Famotidine 20 mg p.o. b.i.d. 18. Magnesium hydroxide 30 mL p.o. daily p.r.n. constipation. 19. Zofran 4 mg p.o. q.6 hours p.r.n. nausea and vomiting. 20. Flomax 0.4 mg p.o. at bedtime. FOLLOWUP APPOINTMENTS: 1. Primary care physician within a week. 2. Dr. Forrester in 2-3 weeks per her clinic. 3. Cardiology, Dr. Castillo per his recommendations. 4. Electrophysiology as scheduled. DISCHARGE CONDITION: Stable. DISPOSITION: Being discharged back to her assisted living facility with home health care from [facility] and she was at the [facility]. DISCHARGE ACTIVITY: As tolerated. DISCHARGE DIET: Heart healthy recommended.
[2018-01-16 15:50] VITALS: BP 136/65; TEMP 98.7
--- NOTE | 2018-01-16 18:24 | EKG ---
Test Reason : POST ABLATION Blood Pressure : / mmHG Vent. Rate : 107 BPM Atrial Rate : 082 BPM P-R Int : 000 ms QRS Dur : 122 ms QT Int : 386 ms P-R-T Axes : 000 -39 -06 degrees QTc Int : 515 ms Poor data quality, interpretation may be adversely affected Atrial fibrillation. Demand pacemaker. Fusion complexes Left axis deviation Right bundle branch block Septal infarct (cited on or before 11-JAN-2018) Inferior infarct , age undetermined Abnormal ECG When compared with ECG of 11-JAN-2018 04:53, (Unconfirmed) Sinus rhythm has replaced Atrial flutter Right bundle branch block is now Present Questionable change in initial forces of Septal leads Confirmed by Quincy ANDRADE ([id number]) on 01/16/2018 6:24:05 PM Referred By: VIKTOR Confirmed By:Quincy ANDRADE
== END 2018-01-16 16:02 | DRG 871 ==
LOC: ERS 04:23 → 2SE 07:38
PROVIDERS: ADMIT Internal Medicine; ATTEND Internal Medicine
PROC: 0T788DZ Dilation of Bilateral Ureters with Intraluminal Device, Via Natural or Artificial Opening Endoscopic (ICD-10-PCS; principal; 2018-01-11)
DX: A41.9 Sepsis, unspecified organism (principal); R65.21 Severe sepsis with septic shock; N13.2 Hydronephrosis with renal and ureteral calculous obstruction; E87.2 Acidosis; I48.4 Atypical atrial flutter; N17.9 Acute kidney failure, unspecified; N39.0 Urinary tract infection, site not specified; N18.3 Chronic kidney disease, stage 3 (moderate); B95.2 Enterococcus as the cause of diseases classified elsewhere; Z16.21 Resistance to vancomycin; B37.9 Candidiasis, unspecified; F41.9 Anxiety disorder, unspecified; I12.9 Hypertensive chronic kidney disease with stage 1 through stage 4 chronic kidney disease, or unspecified chronic kidney disease; D63.1 Anemia in chronic kidney disease; K21.9 Gastro-esophageal reflux disease without esophagitis; M54.5 Low back pain; E03.9 Hypothyroidism, unspecified; M81.8 Other osteoporosis without current pathological fracture; F32.9 Major depressive disorder, single episode, unspecified; J44.9 Chronic obstructive pulmonary disease, unspecified; I48.91 Unspecified atrial fibrillation; Z79.01 Long term (current) use of anticoagulants; Z95.0 Presence of cardiac pacemaker; B96.20 Unspecified Escherichia coli [E. coli] as the cause of diseases classified elsewhere; Z87.891 Personal history of nicotine dependence; R53.81 Other malaise; Z96.643 Presence of artificial hip joint, bilateral; Z86.718 Personal history of other venous thrombosis and embolism; Z95.1 Presence of aortocoronary bypass graft
CPT/HCPCS: 36415; 71045; 74176; 74420; 80048; 80053; 81001; 81003; 81015; 82553; 83605; 83690; 83735; 84484; 85025; 87040; 87077; 87086; 87149; 87186; 93005; 93010; 93650; 94010; 94727; 96361; 96365; 96367; 96375; 96376; A4216; C1733; C1758; C1769; J0456; J0696; J1100; J1160; J1450; J1644; J1956; J2001; J2020; J2270; J2405; J2543; J2704; J7050; Q9961

== ENCOUNTER 2018-01-25 14:37 | Outpatient (CLI) | payer MEDICARE ==
[2018-01-25 16:46] LABS: Hemoglobin 10.5 g/dL (12.0-16.0); Mean Corpuscular HGB CONC 33.4 g/dL (32.0-36.0); Mean Corpuscular Hemoglobin 32.7 pg (27.0-31.0); Mean Corpuscular Volume 97.9 fl (81.0-99.0); Mean Platelet Volume 7.3 fL (7.4-10.4); Platelet Count 165 thou/uL (130-400); RBC Distribution Width 18.9 % (11.5-14.5); Red Blood Cell (RBC) Count 3.21 mill/uL (4.20-5.40); White Blood Cell (WBC) Count 6.1 thou/uL (4.8-10.8)
[2018-01-25 16:52] LABS: INR-International Normal Ratio 1.1; PTT 35.6 SEC (22.9-36.1); Prothrombin Time 14.1 SEC (12.0-14.7)
[2018-01-25 17:05] LABS: Anion Gap 16 mmol/L (10-20); BUN (Urea Nitrogen) 36 mg/dL (9.8-20.1); Calc. Creatinine Clearance 0 mL/min (70-130); Calcium 9.3 mg/dL (7.8-10.44); Carbon Dioxide 21 mmol/L (23-31); Chloride 105 mmol/L (98-107); Estimated GFR-MDRD 18; Glucose 112 mg/dL (83-110); Potassium 4.7 mmol/L (3.5-5.1); Sodium 137 mmol/L (136-145)
--- NOTE | 2018-01-26 13:04 | EKG ---
Test Reason : Blood Pressure : / mmHG Vent. Rate : 082 BPM Atrial Rate : 082 BPM P-R Int : 116 ms QRS Dur : 148 ms QT Int : 502 ms P-R-T Axes : 092 159 046 degrees QTc Int : 586 ms Electronic ventricular pacemaker When compared with ECG of 12-JAN-2018 13:39, Previous ECG has undetermined rhythm, needs review Confirmed by OMAR FULLER ([id number]) on 01/26/2018 1:03:56 PM Referred By: GANESH Confirmed By:OMAR FULLER
== END 2018-01-25 14:38 | disposition home or self-care (01) ==
LOC: LABBT 14:37
PROVIDERS: ATTEND Urology
DX: Z01.818 Encounter for other preprocedural examination (principal); N13.2 Hydronephrosis with renal and ureteral calculous obstruction; Z95.0 Presence of cardiac pacemaker
CPT/HCPCS: 80048; 81001; 85027; 85610; 85730; 87086; 93005; 93010

== ENCOUNTER 2018-01-31 08:08 | Day surgery (SDC) | payer MEDICARE ==
[2018-01-25 14:50] VITALS: BMI 19.9
[2018-01-31] MEDS ORDERED: Fluconazole In NaCl,Iso-Osm 200 MG in Premix Bag 1 BAG IVPB SCH (09:15)
[2018-01-31] MEDS ORDERED: Linezolid 600 MG in Premix Bag 1 BAG IVPB SCH (09:15)
[2018-01-31] MEDS ORDERED: Iothalamate Meglumine 60% 50 ML VIAL FS ONE (10:37)
--- NOTE | 2018-01-31 10:49 | RAD ---
SINGLE VIEW OF THE ABDOMEN: Comparison: 04-03-16, retrograde IVP and CT abdomen/pelvis 01-11-18 History: Bilateral ureteral and renal stones with hydronephrosis. FINDINGS: Single view of the abdomen shows a nonspecific, nonobstructed bowel gas pattern. There are bilateral double J ureteral stents. There are calcifications overlying the upper abdomen which represent calcif ications within the costrel cartilage. No obvious calcifications are seen overlying either renal shad ow, suspicious for renal calcifications, but evaluation is limited given the costochondral calcificat ion. Multiple phleboliths are seen in the pelvis. Hardware is seen in the proximal aspect of both femurs. IMPRESSION: 1. No obvious urinary collecting system calculi identified. 2. Appropriate position of bilateral double J ureteral stents. POS: [facility]
[2018-01-31] MEDS ORDERED: Fentanyl 100 MCG/2 ML VIAL ONE (10:52)
[2018-01-31] MEDS ORDERED: Phenazopyridine HCl 97.5 MG TABLET ONE (13:20)
[2018-01-31] MEDS ORDERED: Oxybutynin 5 MG TAB ONE (13:20)
--- NOTE | 2018-01-31 13:47 | RAD ---
RETROGRADE IVP: Date: 01/31/18 COMPARISON: 01/11/18 and KUB dated 01/31/18. FINDINGS/IMPRESSION: Multiple limited intraoperative fluoroscopic views from retrograde IVP were submitted for interpretat ion. Bilateral double-J ureteral stents are again seen. Contrast was instilled in both renal collecti ng systems. There is mild prominence of the left renal pelvis. No caliceal dilatation is seen on eith er side. POS: [facility]
--- NOTE | 2018-01-31 15:16 | OP ---
DATE OF SERVICE: 01/31/2018 PREOPERATIVE DIAGNOSES: 1. An 87-year-old female with history of recurrent kidney stone, history of VRE urosepsis. 2. History of renal calculi. Current dimensions: Right kidney: Mid to upper pole dystrophic renal parenchymal calcification 10 mm. Right lower pole calculi x2 measuring 9 mm, second lower pole stone appeared to be parenchymal-based 9 mm , right proximal 11mm stone. Left renal calculi burden lower pole 9 mm left proximal ureteral calculi 10 mm. POSTOPERATIVE DIAGNOSES: 1. An 87-year-old female with history of recurrent kidney stone, history of VRE urosepsis. 2. History of renal calculi. Current dimensions: as above PROCEDURES PERFORMED: Cystoscopy, bilateral retrograde, bilateral 6 x 24 double -J ureteral stent exchange, bilateral ureteroscopy, laser lithotripsy, pyeloscopy, basket extraction of stone debris. SURGEON: Hue Forrester D.O. ANESTHESIA: General. COMPLICATIONS: None apparent. DISPOSITION: To recovery room in stable condition. SPECIMEN: Stone for chemical analysis. INDICATIONS FOR THE PROCEDURE AND HISTORY: Ms. Thapa is an 87-year-old female who recently transferred her care from Dr. Forbes to myself due to insurance issues. The patient has undergone multiple ureteroscopies, laser lithotripsies by Dr. Forbes. She has presented to [facility] on multiple occasions due to urosepsis, due to ureteral renal calculi. Recent CT staging demonstrates stone nidus as above. She had previously undergone bilateral ureteral stent placement on 01/11/2018. She had previous blood culture, urine culture demonstrating VRE and has been on Zyvox and Diflucan per Infectious Disease and has been cleared by Cardiology, Infectious Disease to proceed with ureteroscopy , laser lithotripsy. The patient and family were fully informed regarding increased risk of her surgical intervention given her age, comorbidities, presenting urologic issues. Questions were encouraged and answered. Risks and complications including, but not limited to, bleeding, pain, infection, urosepsis, injury to ureter, bladder, kidney, CVA, MA, intraoperative morbidity and mortality reviewed. Questions encouraged and answered and family and patient desired to proceed. DESCRIPTION OF THE PROCEDURE: After an informed consent is signed, the patient is taken to the operating room, placed in a dorsal lithotomy position with the genital area prepped and draped in the usual surgical sterile fashion. A 21- Nigerien cystoscope was utilized for cystoscopy. Upon entering the bladder, the ureteral stents were in good position. We began to work on the right side first. The ureteral stent was removed to the level of the meatus and a 0.35 sensor wire was placed through the stent. Stent was then completely removed. We used a rigid ureteroscope at this time, surveying the ureter to the level just distal to the UPJ, which passed without difficulty. There was no evidence of stone nidus in the ureter itself. Therefore, using a 10-Nigerien dual-lumen access sheath, a second safety wire was placed 0.35 Super Stiff retrograde pyelogram demonstrated opacification of the collecting system with proper wire placement. An 11/13 Nigerien x 28 cm navigator was passed to the level of the proximal ureter with ease. The collecting system was surveyed. There was a large stone in the right lower pole x2 consistent with the CT scan, I believe the ureteral stone had migrated into the lower pole as well. There was also a mid stone nidus which was easily visualized. We laser lithotripsy the stone with 365 micron laser fiber uneventfully. The stone appeared quite soft, consistent with an infected stone. Most of the stones were dusted into dust- like powder debris. This was consistent with sedimentation from the laser lithotripsy an infected stone. The stones with further difficult to laser lithotripsy given powder like debris. They were adherent and sticky to each other. This made basket extracting somewhat more efficacious as the stones adherent to the debris of the laser lithotripsy. We laser lithotripsy all those that were amendable. It was difficult to basket extract every single nidus as they were quite small and the nature of the fragmentation from the laser lithotripsy as they were powder like debris. I did our best to remove as much debris as we can, as the patient tends to be sedentary, likely has decreased oral intake to expedite stone debris clearance and we did basket as much as we could at the end of the procedure, most of the stone debris had resolved. The ureter was surveyed which demonstrated no significant evidence of ureteral trauma or stone nidus. A 6 x 24 double-J ureteral stent was then passed into the right collecting system without difficulty. We performed the same technique procedure on the left side. The left ureteral stone upon endoscopic evaluation had migrated into the upper to mid pole, left lower pole stone was visualized. We laser lithotripsy both stones as previous technique indicates. At the end of the procedure, there were no obvious stone debris of concern, minute stone debris remained in the upper to mid pole as large lower pole stone had migrated into the renal pelvis laser lithotripsy uneventfully. The ureter was surveyed which demonstrated no significant evidence of ureteral trauma and the stone nidus. A 6 x 24 double-J left ureteral stent was passed. All wire was removed. Bladder was completely emptied and she tolerated the procedure well. She is provided Zyvox and Diflucan to continue until followup appointment. She will see me next Monday at 8:15 a.m. We will arrange a CT of the abdomen and pelvis stone protocol day before the procedure. Pending review of CT, I will consider removing stent in office versus observation for further passage of stone debris versus secondary procedure given large stone nidus. STEPHANIE
== END 2018-01-31 14:50 | disposition home or self-care (01) ==
LOC: SDC 08:08
PROVIDERS: ATTEND Urology
PROC: 0TF48ZZ Fragmentation in Left Kidney Pelvis, Via Natural or Artificial Opening Endoscopic (ICD-10-PCS; principal; 2018-01-31)
PROC: 0TF38ZZ Fragmentation in Right Kidney Pelvis, Via Natural or Artificial Opening Endoscopic (ICD-10-PCS; 2018-01-31)
PROC: 0T788DZ Dilation of Bilateral Ureters with Intraluminal Device, Via Natural or Artificial Opening Endoscopic (ICD-10-PCS; 2018-01-31)
DX: N20.2 Calculus of kidney with calculus of ureter (principal); I12.9 Hypertensive chronic kidney disease with stage 1 through stage 4 chronic kidney disease, or unspecified chronic kidney disease; N18.3 Chronic kidney disease, stage 3 (moderate); E78.5 Hyperlipidemia, unspecified; J44.9 Chronic obstructive pulmonary disease, unspecified; I48.0 Paroxysmal atrial fibrillation; R53.81 Other malaise; M47.814 Spondylosis without myelopathy or radiculopathy, thoracic region; M47.816 Spondylosis without myelopathy or radiculopathy, lumbar region; Z86.19 Personal history of other infectious and parasitic diseases; Z79.899 Other long term (current) drug therapy
CPT/HCPCS: 52356; 74018; 74420; 82365; 88300; C1758; C1769; J2020; J1450; J3010; Q9961

== ENCOUNTER 2018-02-08 08:35 | Outpatient (CLI) | payer MEDICARE ==
--- NOTE | 2018-02-08 10:48 | CT ---
CT ABDOMEN AND PELVIS WITHOUT CONTRAST: Comparison: 01-11-18, Retrograde IVP 01-31-18 History: Ureteral calculus and recurrent nephrolithiasis. Technique: Multiple contiguous axial images were obtained in a CT of the abdomen and pelvis without c ontrast. Coronal reformats were performed. FINDINGS: The patient has bilateral double J ureteral stents. The left pigtail portion of the stent is within t he urinary bladder. The right stent may be slightly short with the pigtail portion either in the blad patience or in the distal ureter. It is difficult to determine the exact location. There is streak artifac t from bilateral hip prostheses in the pelvis. The previously seen calcification in the right ureter is no longer present in the right ureter. There is a stable calcification in the right kidney which i s nonobstructed, measuring approximately 6-7 mm in size. There is a stable cortically based calcifica tion in the right kidney. There is a tiny 3-4 mm calcification in the left kidney which is not obstru cting. The patient is status post cholecystectomy. The liver, adrenal glands, spleen, and pancreas are unrem arkable, although evaluation is limited without IV contrast. No free air, free fluid, or stranding ch anges are seen in the abdomen or pelvis. The large and small bowel are unremarkable. No abdominal or pelvic lymphadenopathy are seen. Degenerative changes are seen in the spine. There is a small right pleural effusion. The abdominal wa ll soft tissues are unremarkable. IMPRESSION: 1. Bilateral nonobstructing renal calcifications. 2. Bilateral ureteral stents as above. The distal aspect of the right stent appears in a slight pigta il configuration but is difficult to say whether it is definitely in the urinary bladder. No hydronep hrosis is seen. 3. Small right pleural effusion. POS: [facility]
== END 2018-02-08 08:36 | disposition home or self-care (01) ==
LOC: CT 08:35
PROVIDERS: ATTEND Urology
DX: N20.2 Calculus of kidney with calculus of ureter (principal); J90 Pleural effusion, not elsewhere classified; Z96.0 Presence of urogenital implants
CPT/HCPCS: 74176

== ENCOUNTER 2018-02-11 07:10 | Emergency (ER) | payer MEDICARE ==
[2018-02-11 08:14] LABS: ALT (SGPT) 30 U/L (8-55); AST (SGOT) 26 U/L (5-34); Albumin 3.6 g/dL (3.4-4.8); Alkaline Phosphatase 168 U/L (40-150); Anion Gap 16 mmol/L (10-20); BUN (Urea Nitrogen) 62 mg/dL (9.8-20.1); Bilirubin, Total 0.5 mg/dL (0.2-1.2); Calc. Creatinine Clearance 0 mL/min (70-130); Calcium 8.9 mg/dL (7.8-10.44); Carbon Dioxide 19 mmol/L (23-31); Chloride 97 mmol/L (98-107); Estimated GFR-MDRD 16; Globulin 2.3 g/dL (2.4-3.5); Glucose 112 mg/dL (83-110); Lipase 34 U/L (8-78); Protein, Total 5.9 g/dL (6.0-8.3); Sodium 127 mmol/L (136-145)
[2018-02-11 08:15] LABS: #Basophils 0.1 thou/uL (0.0-0.2); #Eosinphils 0.1 thou/uL (0.0-0.7); #Monocytes 0.3 thou/uL (0.11-0.59); #Neutrophils 3.3 thou/uL (1.40-6.50); %Basophils 1.5 % (0.0-1.0); %Eosinophils 1.3 % (0.0-10.0); %Lymphocytes 21.4 % (21.0-51.0); %Monocytes 5.5 % (0.0-10.0); %Neutrophils 70.4 % (42.0-75.0); Hemoglobin 8.4 g/dL (12.0-16.0); Mean Corpuscular HGB CONC 32.7 g/dL (32.0-36.0); Mean Corpuscular Hemoglobin 31.3 pg (27.0-31.0); Mean Corpuscular Volume 95.6 fL (78.0-98.0); Mean Platelet Volume 10.4 fL (7.4-10.4); PLT Morphology Comment Appears Decreased; Platelet Count 65 thou/uL (130-400); RBC Distribution Width 17.2 % (11.5-14.5); White Blood Cell (WBC) Count 4.6 thou/uL (4.8-10.8)
[2018-02-11] MEDS ORDERED: Acetaminophen 500 MG TAB ONE (09:36)
[2018-02-11 09:40] LABS: Bilirubin Negative (Negative); Blood, Urine Large (Negative); Clarity CLOUDY (Clear); Glucose, Urine (Dipstick) Negative (Negative); Leukocyte Large (Negative); Nitrite Positive (Negative); Protein, Urine (Dipstick) 30 mg/dL (Neg-Trace); Specific Gravity, Urine 1.015 (1.002-1.036); Urobilinogen 0.2 mg/dL (0.2-1.0)
[2018-02-11 09:44] LABS: Bacteria/HPF 1+ HPF (None Seen); Hyaline Casts/LPF 0-3 HYALINE CAST LPF (0-3 Hyaline); RBC/HPF GREATER THAN 50-TNTC HPF (0-3); Squamous Epithelial 0-3 HPF (0-3)
[2018-02-11] MEDS ORDERED: cefTRIAXone\\ROCEPHIN 2 GM VIAL ONE (10:05)
--- NOTE | 2018-02-11 10:18 | CT ---
CT ABDOMEN AND PELVIS WITHOUT IV CONTRAST: Date: 02/11/18 Multiple axial tomograms obtained through the abdomen and pelvis without IV enhancement. Oral contras t was not given. INDICATION: Abdominal pain. Recent removal of ureteral stents. Comparison made to CT abdomen and pelvis dated 02/08/18 which showed bilateral ureteral stents in lashanda ce. FINDINGS: The lung bases appear clear with no infiltrate or effusion. The liver, spleen, and pancreas appear unremarkable for an unenhanced study. Post cholecystectomy yash nges are noted. Review of the urinary tract shows that the ureteral stents have been removed. Mild prominence of the left renal pelvis. There are nonobstructing calculi in the upper collecting structures of both kidney s. These are unchanged from the recent exam. Urinary bladder is minimally distended, but is obscured by the hardware that is present in both hips. There is mild nonspecific distention/dilatation of multiple small bowel loops. The terminal ileum is normal caliber. There is stool and gas in the right colon. Scattered stool and gas also seen in the l eft colon. Aorta is calcified and normal caliber. IMPRESSION: 1. Nonspecific small bowel distention with normal caliber terminal ileum. I cannot exclude a low gra de small bowel obstruction, although findings could be on the basis of ileus. 2. The ureteral stents have been removed. Nonobstructing calculi in the upper collecting structures of both kidneys again noted. POS: [facility]
== END 2018-02-11 11:23 | disposition home or self-care (01) ==
LOC: ERS 07:10
DX: K56.600 Partial intestinal obstruction, unspecified as to cause (principal); E87.1 Hypo-osmolality and hyponatremia; D64.89 Other specified anemias; N39.0 Urinary tract infection, site not specified; F41.9 Anxiety disorder, unspecified; J44.9 Chronic obstructive pulmonary disease, unspecified; E03.9 Hypothyroidism, unspecified; F32.9 Major depressive disorder, single episode, unspecified; Z87.891 Personal history of nicotine dependence; Z79.899 Other long term (current) drug therapy; Z87.442 Personal history of urinary calculi
CPT/HCPCS: 74176; 80053; 81003; 81015; 83690; 85025; 96361; 96365; 96375; J0696; J2270

== ENCOUNTER 2018-02-16 15:32 | Inpatient (IN) | payer MEDICARE ==
[2018-02-16 16:30] LABS: Hemoglobin 9.1 g/dL (12.0-16.0); Mean Corpuscular HGB CONC 34.9 g/dL (32.0-36.0); Mean Corpuscular Hemoglobin 33.2 pg (27.0-31.0); Mean Corpuscular Volume 95.3 fL (78.0-98.0); Mean Platelet Volume 8.5 fL (7.4-10.4); Platelet Count 117 thou/uL (130-400); RBC Distribution Width 17.2 % (11.5-14.5); Red Blood Cell (RBC) Count 2.73 mill/uL (4.20-5.40); White Blood Cell (WBC) Count 4.6 thou/uL (4.8-10.8)
[2018-02-16 16:48] LABS: ALT (SGPT) 42 U/L (8-55); AST (SGOT) 32 U/L (5-34); Albumin 3.7 g/dL (3.4-4.8); Alkaline Phosphatase 220 U/L (40-150); Anion Gap 11 mmol/L (10-20); BUN (Urea Nitrogen) 30 mg/dL (9.8-20.1); Bilirubin, Total 0.4 mg/dL (0.2-1.2); Calc. Creatinine Clearance 0 mL/min (70-130); Calcium 9.1 mg/dL (7.8-10.44); Carbon Dioxide 23 mmol/L (23-31); Chloride 101 mmol/L (98-107); Estimated GFR-MDRD 24; Globulin 2.1 g/dL (2.4-3.5); Glucose 124 mg/dL (83-110); Potassium 4.8 mmol/L (3.5-5.1); Protein, Total 5.8 g/dL (6.0-8.3); Sodium 130 mmol/L (136-145)
[2018-02-16 16:52] LABS: Anisocytosis SLIGHT = 6-15 cells (100X) (0-5/hpf); Band 1 % (5-11); Eosinophils 9 % (0-10); Lymphocytes 28 % (21-51); MDiff Complete? YES; Monocytes 3 % (0-10); Neutrophil 59 % (42-75); PLT Morphology Comment Appears Decreased
[2018-02-16 17:32] LABS: Bilirubin Negative (Negative); Blood, Urine Moderate (Negative); Clarity CLOUDY (Clear); Glucose, Urine (Dipstick) Negative (Negative); Leukocyte Large (Negative); Nitrite Positive (Negative); Protein, Urine (Dipstick) 30 mg/dL (Neg-Trace); Specific Gravity, Urine 1.013 (1.002-1.036); Urobilinogen 0.2 mg/dL (0.2-1.0)
[2018-02-16] MEDS ORDERED: Cefepime 2 GM VIAL ONE (17:33)
[2018-02-16 17:34] LABS: Hyaline Casts/LPF 0-3 HYALINE CAST LPF (0-3 Hyaline); RBC/HPF 21-50 HPF (0-3); Squamous Epithelial None Seen HPF (0-3)
[2018-02-16 17:37] LABS: Yeast-AUWi Flag 37.9 (0-25.0)
[2018-02-16] MEDS ORDERED: Fentanyl 100 MCG/2 ML VIAL ONE (17:37)
[2018-02-16 17:49] LABS: Bacteria/HPF 1+ HPF (None Seen); Yeast-All Forms None Seen HPF (None Seen)
[2018-02-16] MEDS ORDERED: Senokot 8.6 MG TAB PO PRN (18:26)
[2018-02-16] MEDS ORDERED: cloNIDine 0.1 MG TAB PO PRN (18:27)
[2018-02-16] MEDS: Sodium Chloride 0.9% 1,000 ML IV SCH (20:32)
[2018-02-16] MEDS: traZODone HCl 50 MG TAB PO SCH (20:33)
[2018-02-16] MEDS: Apixaban 5 MG TAB PO SCH (20:33)
[2018-02-16] MEDS: Tamsulosin HCl 0.4 MG CAP PO SCH (20:33)
[2018-02-16] MEDS: Famotidine 20 MG TAB PO SCH (20:33)
[2018-02-16] MEDS: HYDROcodone/Acetaminophen 10/325 mg Tablet PO PRN (20:33)
[2018-02-16] MEDS ORDERED: Heparin 5,000 UNITS/ML VIAL SC SCH (21:00)
[2018-02-16 21:23] VITALS: BMI 19.9
[2018-02-17] MEDS: HYDROcodone/Acetaminophen 10/325 mg Tablet PO PRN ×4 (00:50→19:54)
--- NOTE | 2018-02-17 01:58 | HP ---
CHIEF COMPLAINT: Abdominal pain and failed outpatient therapy for UTI. HISTORY OF PRESENT ILLNESS: The patient is a very pleasant 87-year-old female with a history of comp cheli UTIs and secondary to ureteral stones who comes into the hospital with complaints of abdominal pa in. The patient recently had her bilateral stents exchanged on 01/31/2018. She had a cystoscopy wit h bilateral retrograde, bilateral exchange of ureteral stents, right and left. She also had these la ser lithotripsy and extraction of stone debris. The patient at that time was discharged with antibio tics that were Zyvox and Diflucan. The patient came into the ER on 02/11/2018 for abdominal pain. A t this time, she did have a CT abdomen and pelvis, which indicated nonspecific small bowel distention with normal caliber terminal ileum; however, there were some concerns for, however, could not exclud e low grade small-bowel obstruction. The patient at that time was discharged home; however, per the ER records shows that patient left against medical advice at this time. She was given Bactrim-DS. S he comes in back to the hospital with complaints of abdominal pain and also she was seen by Infectiou s Disease and had a urine culture which indicated positive Pseudomonas 25,000-50,000 colonies. The p atient denies any fevers or chills at home. She denies any dysuria; however, she has been complainin g of significant lower abdominal pain and also significant pain to the lower abdomen and also general ized abdominal pain. She stated that she had a bowel movement this morning. Denies any chest pain o r palpitations, nausea, vomiting or any diarrhea. PAST MEDICAL HISTORY: Significant for UTI and bilateral hydronephrosis and multiple ureteral stones. 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 She has a hist ory of COPD. She has a history of nephrolithiasis, hypertension. She has a history of osteoporosis, chronic lower back pain, GERD, chronic kidney disease, and hypothyroidism. PAST SURGICAL HISTORY: She has had a cholecystectomy in 2017, appendectomy, total abdominal hysterec arslan, right total hip replacement, left total hip replacement, tonsillectomy and stents exchange and placed at this time. ALLERGIES: She has had no known drug allergies. MEDICATIONS: She takes Xanax 0.25 mg p.o. daily, Eliquis 2.5 mg b.i.d., calcium carbonate and vitami n D 1 tab p.o. at bedtime, Cardizem 240 mg daily, ferrous sulfate 325 daily, Synthroid 137 mcg daily, Claritin 10 mg daily, multivitamin 1 daily, MiraLax 17 grams daily, Flomax 0.4 mg at bedtime, Detrol 2 mg p.o. daily, trazodone 50 mg daily. SOCIAL HISTORY: She is an ex-smoker, quit more than 10 years ago. She denies any alcohol abuse, den ies any other illicit drug use. PHYSICAL EXAMINATION: VITAL SIGNS: She is currently afebrile, temperature 98.7, pulse 82, respirations 16, blood pressure was 140/70. GENERAL: She is awake, alert, oriented x3, does not appear in any distress. CARDIOVASCULAR: S1, S2 present. No murmurs, rubs, or gallops. ABDOMEN: Bowel sounds are present x2, soft. She has got generalized pain upon palpation significant ly to her bilateral lower quadrant. CHEST: Chest wall area, she does have some reproducible pain on her left-sided chest upon palpation. EXTREMITIES: No edema. Pedal pulses present x2. NEUROLOGIC: No focal deficits noted. SKIN: Intact. LABORATORY DATA: Are as the following: WBCs of 4.6, hemoglobin of 9.1, hematocrit of 26.0, platelet s of 117. She has got no bands. Chemistry: Sodium of 130, potassium of 4.8, BUN of 30, creatinine of 1.97, alkaline phosphatase of 220, sugar of 124. Blood cultures were drawn. Urine indicated that was drawn today indicated positive for nitrites. ASSESSMENT AND PLAN: The patient is a very pleasant 87-year-old female who presents to the hospital with complaints of abdominal pain. 1. Complicated urinary tract infection. The patient's culture from the indicated Pseudomonas 25 ,000-50,000 colonies. The patient has had multiple infections in the past. The ER physician has spo florence with Infectious Disease, who recommended starting the patient on Cubicin and cefepime. She has a lso had VRE in her urine. We will continue some IV gentle hydration. We will also get an abdominal KUB just to make sure she does not have any obstructive patterns; however, the patient states that sh e has been passing gas and has had a bowel movement. We will continue most of her home medications. 2. History of deep venous thrombosis. We will continue her Eliquis. 3. History of hypertension. We will continue her home blood pressure medications. 4. Hypothyroidism. We will continue her Synthroid and also we will consult Dr. Lipscomb.
[2018-02-17 04:01] LABS: Anion Gap 14 mmol/L (10-20); BUN (Urea Nitrogen) 25 mg/dL (9.8-20.1); Calc. Creatinine Clearance 22 mL/min (70-130); Calcium 8.9 mg/dL (7.8-10.44); Carbon Dioxide 20 mmol/L (23-31); Chloride 103 mmol/L (98-107); Estimated GFR-MDRD 31; Glucose 130 mg/dL (83-110); Potassium 4.6 mmol/L (3.5-5.1); Sodium 132 mmol/L (136-145)
[2018-02-17 04:10] LABS: Anisocytosis SLIGHT = 6-15 cells (100X) (0-5/hpf); Band 16 % (5-11); Eosinophils 1 % (0-10); Hemoglobin 8.9 g/dL (12.0-16.0); Lymphocytes 19 % (21-51); MDiff Complete? YES; Mean Corpuscular HGB CONC 34.6 g/dL (32.0-36.0); Mean Corpuscular Hemoglobin 33.1 pg (27.0-31.0); Mean Corpuscular Volume 95.6 fL (78.0-98.0); Monocytes 7 % (0-10); Neutrophil 57 % (42-75); PLT Morphology Comment Appears Decreased; Platelet Count 114 thou/uL (130-400); RBC Distribution Width 17.2 % (11.5-14.5); White Blood Cell (WBC) Count 6.7 thou/uL (4.8-10.8)
[2018-02-17] MEDS: Levothyroxine Sodium 112 MCG TAB PO SCH (04:20)
[2018-02-17] MEDS: Acetaminophen 325 MG TAB PO PRN ×3 (04:20→17:25)
[2018-02-17] MEDS: Levothyroxine Sodium 25 MCG TAB PO SCH (04:20)
[2018-02-17] MEDS: Ferrous Sulfate 325 MG TAB PO SCH (07:52)
[2018-02-17] MEDS: ALPRAZolam 0.5 MG TAB PO SCH (07:52)
[2018-02-17] MEDS: Apixaban 5 MG TAB PO SCH ×2 (07:52→19:53)
[2018-02-17 08:13] LABS: Gamma GT (GGT) 324 U/L (9-36); Lipase 54 U/L (8-78)
--- NOTE | 2018-02-17 13:57 | PDOC.PN ---
- Subjective Encounter Start Date: 02/17/18 Encounter Start Time: 13:50 Subjective: f/u for Pseudomonas UTI on Cefepime/Cubicin. Hx of VRE UTI in recent -: past. Some pain and spasms but no fever, n/v. - Objective Resuscitation Status: Resuscitation Status FULL:Full Resuscitation MAR Reviewed: Yes Vital Signs & Weight: Vital Signs (12 hours) Temp Pulse Resp BP BP Pulse Ox 02/17/18 11:36 97.5 F L 80 20 145/79 H 100 02/17/18 11:17 82 129/75 02/17/18 09:01 97.3 F L 86 16 129/75 100 02/17/18 08:00 97.3 F L 86 16 100 02/17/18 04:00 98.5 F 81 20 128/76 97 Weight Weight 115 lb 15.41 oz I&O: 02/16/18 02/17/18 02/18/18 06:59 06:59 06:59 Intake Total 1080 360 Balance 1080 360 Result Diagrams: 02/17/18 03:25 02/17/18 03:25 Additional Labs: Microbiology 02/15/18 10:35 Urine clean catch Urine Culture - Final Pseudomonas aeruginosa 12/10/17 18:05 Stool Escherichia coli 0157 Culture - Final 12/10/17 18:05 Stool Campylobacter Antigen Assay - Final 12/10/17 18:05 Stool Shiga Toxin Test - Final 12/10/17 18:05 Stool C. difficile GDH Antigen & Toxins - Final 12/09/17 16:37 Urine Straight Catheter Urine Culture - Final Yeast species 02/16/18 17:46 Venous blood - Left Arm Blood Culture - Preliminary Specimen has been received and culture in progress. No Growth to date. 02/16/18 17:10 Urine clean catch Urine Culture - Preliminary Presumptive Pseudomonas 02/16/18 16:17 Venous blood - Right Arm Blood Culture - Preliminary Specimen has been received and culture in progress. No Growth to date. 12/10/17 18:05 Stool Stool Culture - Preliminary Laboratory Tests 12/09/17 12/09/17 12/09/17 16:18 16:18 16:18 Hgb 10.9 L Sodium 129 L Creatinine 4.42 H B-Natriuretic Peptide 424.3 H TSH 3rd Generation 12/09/17 12/10/17 12/10/17 16:18 04:32 04:32 Hgb 10.2 L Sodium 132 L Creatinine 3.93 H B-Natriuretic Peptide TSH 3rd Generation [id number] Radiology Reviewed by me: Yes (CT abd/pel - nonspecific small bowel distention) Phys Exam - Physical Examination Constitutional: NAD HEENT: PERRLA, sclera anicteric, oral pharynx no lesions Neck: no nodes, no JVD, supple, full ROM Respiratory: no wheezing, no rales, no rhonchi, clear to auscultation bilateral S1, S2 Cardiovascular: RRR, no significant murmur, no rub, gallop Gastrointestinal: soft, non-tender, no distention, positive bowel sounds Musculoskeletal: no edema, pulses present Neurological: non-focal, normal sensation, moves all 4 limbs Psychiatric: normal affect, A&O x 3 Skin: no rash, normal turgor, cap refill <2 seconds Dx/Plan (1) Pseudomonas urinary tract infection Code(s): N39.0 - URINARY TRACT INFECTION, SITE NOT SPECIFIED; B96.5 - PSEUDOMONAS (MALLEI) CAUSING DISEASES CLASSD ELSWHR Status: Acute Comment: Continue Cefepime/Cubicin, ID consult pending, continue to monitor clinical response (2) MONA (acute kidney injury) Code(s): N17.9 - ACUTE KIDNEY FAILURE, UNSPECIFIED Status: Acute Comment: Improved, continue IVF 50ml/h (3) CKD (chronic kidney disease), stage III Code(s): N18.3 - CHRONIC KIDNEY DISEASE, STAGE 3 (MODERATE) Status: Chronic Comment: Nearing baseline levels, avoid nephrotoxic meds and limit contrast exposure (4) Bilateral ureteral calculi Code(s): N20.1 - CALCULUS OF URETER Status: Acute Comment: s/p bilaterla dbl J stents (5) HTN (hypertension) Code(s): I10 - ESSENTIAL (PRIMARY) HYPERTENSION Status: Chronic Qualifiers: Hypertension type: essential hypertension Comment: Continue Diltiazem 240mg po daily, serial BP monitoring (6) Chronic hyponatremia Code(s): E87.1 - HYPO-OSMOLALITY AND HYPONATREMIA Status: Chronic - Plan continue antibiotics, PT/OT, adoption social worker, out of bed/ambulate, DVT proph w/ SCDs Stable overall -: Continue Cefepime and Cubicin -: Continue IVF NS 50ml/h -: OOB/ambulate with PT -: AM lab: BMP * .
[2018-02-17] MEDS: Cefepime 2 GM in Sodium Chloride 0.9% 100 ML IVPB SCH (17:20)
[2018-02-17] MEDS: Sodium Chloride 0.9% 1,000 ML IV SCH (17:21)
[2018-02-17] MEDS ORDERED: DAPTOmycin 500 MG in Sodium Chloride 0.9% 100 ML IVPB SCH (18:00)
[2018-02-17] MEDS: Tamsulosin HCl 0.4 MG CAP PO SCH (19:54)
[2018-02-17] MEDS: Famotidine 20 MG TAB PO SCH (19:54)
[2018-02-17] MEDS: traZODone HCl 50 MG TAB PO SCH (19:54)
[2018-02-18] MEDS: HYDROcodone/Acetaminophen 10/325 mg Tablet PO PRN ×4 (01:57→20:03)
--- NOTE | 2018-02-18 02:30 | CON ---
DATE OF CONSULTATION: 02/17/2018 REASON FOR CONSULTATION: Readmission with persistence of urinary symptoms, intolerance to the linezolid and Pseudomonas growth from urinary culture. HISTORY OF PRESENT ILLNESS: An 87-year-old with history of prior deep venous thrombosis on Eliquis, COPD, and recurrent nephrolithiasis, which had previous stenting to had been removed. She was admitted at the beginning of January with UTI with obstruction had another stent placed. The area was identified and she was discharged on linezolid. At the [place], she received almost 4 weeks of linezolid, but then developed nausea and vomiting. When linezolid was discontinued, she developed some dysuria and was readmitted for management. Patient also had Pseudomonas aeruginosa, positive urine culture with pending susceptibilities. Patient is currently on cefepime and daptomycin had been started. She denies any headaches, no visual symptoms, sore throat, odynophagia , dysphagia. No dyspnea or cough, no chest pain. She has an abdominal pain, which developed over the past 2-3 days localized in the presence of lower segments of the abdomen and more diffuse distribution. Dysuria has resolved. No joint symptoms. No neurological symptoms. PAST MEDICAL HISTORY: DVT on chronic anticoagulation, history of COPD, nephrolithiasis with recurring episodes of UTI with obstruction with stenting requirement, also with hypertension, osteoporosis, chronic low back pain, renal insufficiency. PAST SURGICAL HISTORY: Cholecystectomy, appendectomy, hysterectomy, right total hip replacement, left total hip replacement. ALLERGIES: None. CURRENT MEDICATIONS: Include Tylenol, D Hanis, Xanax, Eliquis, cefepime, Catapres , Cardizem, Pepcid, Feosol, Synthroid, Senokot, tamsulosin. SOCIAL HISTORY: Previous smoker, quit more than 10 years ago. PHYSICAL EXAMINATION: VITAL SIGNS: T-max 98.5, blood pressure 120/70, pulse 81, respiration 16, O2 sat 100%. GENERAL: Appears no distress. HEENT: Ocular movements conjugate. Oral cavity moist. NECK: Supple. LUNGS: Symmetric clear breath sounds. HEART: S1, S2, regular rate. ABDOMEN: Moderately distended with diffuse tenderness. Bladder is not distended. EXTREMITIES: No joint inflammatory activity noted. No edema. Pulses 1+ in dorsalis pedis. She moves extremities equally. NEUROLOGIC: Cognitive function appears to be intact. LABORATORY DATA: White cell count at 6.7, hemoglobin 8.9, platelets 114,000, 57 % neutrophils, 16% bands. Sodium 132, creatinine 1.57. Alkaline phosphatase 220. Transaminases and bilirubin normal. GGT 3-4. Urinalysis with greater than 50 wbc's and microbiology presumptive Pseudomonas. The culture from 2017 showed pansensitive Pseudomonas. Previous abdomen and pelvis CT from 02/11 with nonspecific small bowel distention. Normal caliber, possible low grade small-bowel obstruction. Ureteral stents had been removed. ASSESSMENT AND DISCUSSION: 1. Chronic obstructive pulmonary disease. 2. Chronic renal failure, stage 3-4. 3. Recurrent nephrolithiasis with bowel obstruction and needing a repeat insertion of a stent recently. 4. Vancomycin-resistant enterococci colonization urinary tract, which was treated for 3 to 4 weeks with then development of nausea. 5. Recurrence of dysuria with this time Pseudomonas aeruginosa with a very broad susceptibility profile. At this point, we would discontinue vancomycin-resistant enterococci treatment since she has been treated for the intended 3 to 4 weeks' duration of therapy. Now, she has replacement of the vancomycin-resistant enterococci with Pseudomonas. We will switch her to quinolone adjusted for renal function, treat for about 2 weeks approximately. Since she has standstill is at risk for recurrence of colonization, possible invasive urinary tract infections. She will need removal of stent and follow up repeat urine cultures and may need repeat treatment courses. Abdominal cramps and pain is of concern. The area of transition in the prior CT scan just a few days ago was mentioned as a possibility of early ESBL, may need a follow up imaging study to see if there is progression of the small bowel obstruction. MTDD
[2018-02-18 05:23] LABS: Anion Gap 16 mmol/L (10-20); BUN (Urea Nitrogen) 18 mg/dL (9.8-20.1); Calc. Creatinine Clearance 26 mL/min (70-130); Calcium 8.2 mg/dL (7.8-10.44); Carbon Dioxide 17 mmol/L (23-31); Chloride 104 mmol/L (98-107); Estimated GFR-MDRD 38; Glucose 94 mg/dL (83-110); Potassium 4.5 mmol/L (3.5-5.1); Sodium 132 mmol/L (136-145)
[2018-02-18] MEDS: Levothyroxine Sodium 25 MCG TAB PO SCH ×2 (05:38→11:30)
[2018-02-18] MEDS: Levothyroxine Sodium 112 MCG TAB PO SCH (05:38)
--- NOTE | 2018-02-18 11:07 | RAD ---
ONE VIEW ABDOMEN: HISTORY: Pain. COMPARISON: 01/31/18. FINDINGS: Interval removal of bilateral ureteral stents. Bowel gas pattern is nonspecific. Slightly prominent air-filled loops of colon are noted. No pneumoperitoneum on supine projection. Stable calcificatio ns. IMPRESSION: Nonspecific bowel gas pattern. POS: [facility]
[2018-02-18] MEDS: Apixaban 5 MG TAB PO SCH ×2 (11:30→20:04)
[2018-02-18] MEDS: Ferrous Sulfate 325 MG TAB PO SCH (11:31)
[2018-02-18] MEDS: ALPRAZolam 0.5 MG TAB PO SCH (11:31)
[2018-02-18] MEDS: Acetaminophen 325 MG TAB PO PRN (12:31)
[2018-02-18] MEDS: Sodium Chloride 0.9% 1,000 ML IV SCH (12:31)
--- NOTE | 2018-02-18 12:51 | PDOC.PN ---
- Subjective Encounter Start Date: 02/18/18 Encounter Start Time: 12:40 Subjective: f/u for Pseudomonas UTI on Cefepime. Susceptibilities pending on Ucx. -: c/o non-specific abd pain and fixated on her [place]. Last BM 02/17/18. -: No fever or chills. - Objective Resuscitation Status: Resuscitation Status FULL:Full Resuscitation MAR Reviewed: Yes Vital Signs & Weight: Vital Signs (12 hours) Temp Pulse Resp BP Pulse Ox 02/18/18 11:29 80 02/18/18 08:00 98.4 F 80 16 100 02/18/18 07:26 98.4 F 80 16 132/74 100 Weight Weight 115 lb 15.41 oz I&O: 02/17/18 02/18/18 02/19/18 06:59 06:59 06:59 Intake Total 1080 1380 Balance 1080 1380 Result Diagrams: 02/17/18 03:25 02/18/18 04:17 Additional Labs: Microbiology 02/16/18 17:46 Venous blood - Left Arm Blood Culture - Preliminary NO GROWTH AT 48 HOURS 02/16/18 17:10 Urine clean catch Urine Culture - Preliminary Pseudomonas aeruginosa 02/16/18 16:17 Venous blood - Right Arm Blood Culture - Preliminary NO GROWTH AT 48 HOURS Laboratory Tests 02/16/18 02/16/18 02/17/18 16:14 16:14 03:25 Hgb 9.1 L Plt Count 117 L Sodium 130 L 132 L Creatinine 1.97 H 1.57 H GGT Alkaline Phosphatase 220 H Lipase 02/17/18 03:25 Hgb Plt Count Sodium Creatinine GGT 324 H Alkaline Phosphatase Lipase 54 Radiology Reviewed by me: Yes (ABD x-ray - negative) Phys Exam - Physical Examination Constitutional: NAD HEENT: PERRLA, sclera anicteric, oral pharynx no lesions Neck: no nodes, no JVD, supple, full ROM Respiratory: no wheezing, no rales, no rhonchi, clear to auscultation bilateral S1, S2 Cardiovascular: RRR, no significant murmur, no rub, gallop Gastrointestinal: soft, non-tender, no distention, positive bowel sounds Musculoskeletal: no edema, pulses present Neurological: non-focal, normal sensation, moves all 4 limbs Psychiatric: normal affect Skin: no rash, normal turgor, cap refill <2 seconds Dx/Plan (1) Pseudomonas urinary tract infection Code(s): N39.0 - URINARY TRACT INFECTION, SITE NOT SPECIFIED; B96.5 - PSEUDOMONAS (MALLEI) CAUSING DISEASES CLASSD ELSWHR Status: Acute Comment: Continue Cefepime, continue to monitor clinical response, plan to transition to quinolone (2) MONA (acute kidney injury) Code(s): N17.9 - ACUTE KIDNEY FAILURE, UNSPECIFIED Status: Acute Comment: Improved, continue IVF 50ml/h (3) CKD (chronic kidney disease), stage III Code(s): N18.3 - CHRONIC KIDNEY DISEASE, STAGE 3 (MODERATE) Status: Chronic Comment: Nearing baseline levels, avoid nephrotoxic meds and limit contrast exposure (4) Bilateral ureteral calculi Code(s): N20.1 - CALCULUS OF URETER Status: Acute Comment: s/p bilaterla dbl J stents (5) HTN (hypertension) Code(s): I10 - ESSENTIAL (PRIMARY) HYPERTENSION Status: Chronic Qualifiers: Hypertension type: essential hypertension Comment: Continue Diltiazem 240mg po daily, serial BP monitoring (6) Chronic hyponatremia Code(s): E87.1 - HYPO-OSMOLALITY AND HYPONATREMIA Status: Chronic (7) Abdominal pain Code(s): R10.9 - UNSPECIFIED ABDOMINAL PAIN Status: Chronic Qualifiers: Abdominal location: epigastric Qualified Code(s): R10.13 - Epigastric pain Comment: non-specific without identifiable source, suspect due to chronic narcotic therapy, monitor bowel regimen, Abd x-rays negative - Plan plan discussed w/ family, continue antibiotics, PT/OT, social science instructor, out of bed/ambulate, DVT proph w/SCDs Stable overall -: Continue Cefepime 2mg IV q12h -: Continue IVF's 50ml/h -: Change Pepcid 20mg BID -: OOB/ambulate * AM lab: BMP, CBC
[2018-02-18] MEDS ORDERED: Saccharomyces boulardii 250 MG CAP PO SCH (13:00)
[2018-02-18] MEDS ORDERED: Mag-Al 1200 mg/1200 mg/30 ML UDCUP PO SCH (17:30)
[2018-02-18] MEDS: Cefepime 2 GM in Sodium Chloride 0.9% 100 ML IVPB SCH (17:59)
[2018-02-18] MEDS: Tamsulosin HCl 0.4 MG CAP PO SCH (20:03)
[2018-02-18] MEDS: Famotidine 20 MG TAB PO SCH (20:03)
[2018-02-18] MEDS: traZODone HCl 50 MG TAB PO SCH (20:04)
[2018-02-19] MEDS: HYDROcodone/Acetaminophen 10/325 mg Tablet PO PRN ×4 (02:51→20:24)
[2018-02-19] MEDS: Levothyroxine Sodium 25 MCG TAB PO SCH (06:12)
[2018-02-19] MEDS: Levothyroxine Sodium 112 MCG TAB PO SCH (06:12)
[2018-02-19] MEDS: Apixaban 5 MG TAB PO SCH ×2 (07:39→20:23)
[2018-02-19] MEDS: Saccharomyces boulardii 250 MG CAP PO SCH (07:40)
[2018-02-19] MEDS: ALPRAZolam 0.5 MG TAB PO SCH (07:41)
[2018-02-19] MEDS: Ferrous Sulfate 325 MG TAB PO SCH (07:42)
[2018-02-19] MEDS: Famotidine 20 MG TAB PO SCH (07:42)
[2018-02-19] MEDS: Sodium Chloride 0.9% 1,000 ML IV SCH (10:46)
--- NOTE | 2018-02-19 15:57 | PDOC.PN ---
- Subjective Encounter Start Date: 02/19/18 Encounter Start Time: 15:45 Subjective: f/u for UTI with Pseudomonas on Cefepime and cx showing pansensitive -: organism. Feels better overall. - Objective Resuscitation Status: Resuscitation Status FULL:Full Resuscitation MAR Reviewed: Yes Vital Signs & Weight: Vital Signs (12 hours) Temp Pulse Resp BP BP Pulse Ox 02/19/18 10:42 78 128/75 02/19/18 07:40 98.7 F 78 14 98 02/19/18 07:28 98.7 F 81 14 118/73 98 Weight Weight 115 lb 15.41 oz I&O: 02/18/18 02/19/18 02/20/18 06:59 06:59 06:59 Intake Total 1380 2410 Output Total 650 Balance 1380 1760 Result Diagrams: 02/17/18 03:25 02/18/18 04:17 Additional Labs: Microbiology 02/16/18 17:10 Urine clean catch Urine Culture - Final Pseudomonas aeruginosa 02/16/18 17:46 Venous blood - Left Arm Blood Culture - Preliminary NO GROWTH AT 48 HOURS 02/16/18 17:10 Urine clean catch Urine Culture - Preliminary Pseudomonas aeruginosa 02/16/18 16:17 Venous blood - Right Arm Blood Culture - Preliminary NO GROWTH AT 48 HOURS Laboratory Tests 02/16/18 02/16/18 02/17/18 16:14 16:14 03:25 Hgb 9.1 L Plt Count 117 L Sodium 130 L 132 L Creatinine 1.97 H 1.57 H GGT Alkaline Phosphatase 220 H Lipase 02/17/18 03:25 Hgb Plt Count Sodium Creatinine GGT 324 H Alkaline Phosphatase Lipase 54 Phys Exam - Physical Examination Constitutional: NAD HEENT: PERRLA, sclera anicteric, oral pharynx no lesions Neck: no nodes, no JVD, supple, full ROM Respiratory: no wheezing, no rales, no rhonchi, clear to auscultation bilateral S1, S2 Cardiovascular: RRR, no significant murmur, no rub, gallop Gastrointestinal: soft, non-tender, no distention, positive bowel sounds Musculoskeletal: no edema, pulses present Neurological: non-focal, normal sensation, moves all 4 limbs Skin: no rash, normal turgor, cap refill <2 seconds Dx/Plan (1) Pseudomonas urinary tract infection Code(s): N39.0 - URINARY TRACT INFECTION, SITE NOT SPECIFIED; B96.5 - PSEUDOMONAS (MALLEI) CAUSING DISEASES CLASSD ELSWHR Status: Acute Comment: Continue Cefepime, continue to monitor clinical response, plan to transition to quinolone for 2 weeks outpt therapy (2) MONA (acute kidney injury) Code(s): N17.9 - ACUTE KIDNEY FAILURE, UNSPECIFIED Status: Acute Comment: Improved, continue IVF 50ml/h, d/c in am (3) CKD (chronic kidney disease), stage III Code(s): N18.3 - CHRONIC KIDNEY DISEASE, STAGE 3 (MODERATE) Status: Chronic Comment: Nearing baseline levels, avoid nephrotoxic meds and limit contrast exposure (4) Bilateral ureteral calculi Code(s): N20.1 - CALCULUS OF URETER Status: Acute Comment: s/p bilaterla dbl J stents, chronic renal calculi (5) HTN (hypertension) Code(s): I10 - ESSENTIAL (PRIMARY) HYPERTENSION Status: Chronic Qualifiers: Hypertension type: essential hypertension Comment: Continue Diltiazem 240mg po daily, serial BP monitoring (6) Chronic hyponatremia Code(s): E87.1 - HYPO-OSMOLALITY AND HYPONATREMIA Status: Chronic (7) Abdominal pain Code(s): R10.9 - UNSPECIFIED ABDOMINAL PAIN Status: Chronic Qualifiers: Abdominal location: epigastric Qualified Code(s): R10.13 - Epigastric pain Comment: non-specific without identifiable source, suspect due to chronic narcotic therapy, monitor bowel regimen, Abd x-rays negative - Plan continue antibiotics, PT/OT, social contact worker, out of bed/ambulate, DVT proph w/ SCDs Stable overall -: Continue Cefepime another 24h then convert to Levaquin po -: Will need 2 weeks of Levaquin on d/c -: Continue Florastor 250mg daily -: AM lab: BMP * D/C to [facility]
[2018-02-19] MEDS ORDERED: Cefepime 2 GM, Admixture Fee 1 EACH in Sodium Chloride 0.9% 100 ML IVPB SCH (18:00)
[2018-02-19] MEDS: traZODone HCl 50 MG TAB PO SCH (20:24)
[2018-02-19] MEDS: Tamsulosin HCl 0.4 MG CAP PO SCH (20:24)
[2018-02-19] MEDS: Cefepime 2 GM, Admixture Fee 1 EACH in Sodium Chloride 0.9% 100 ML IVPB SCH (20:25)
[2018-02-20] MEDS: HYDROcodone/Acetaminophen 10/325 mg Tablet PO PRN ×4 (01:41→19:27)
[2018-02-20 05:15] LABS: Anion Gap 14 mmol/L (10-20); BUN (Urea Nitrogen) 22 mg/dL (9.8-20.1); Calc. Creatinine Clearance 22 mL/min (70-130); Calcium 8.5 mg/dL (7.8-10.44); Carbon Dioxide 17 mmol/L (23-31); Chloride 109 mmol/L (98-107); Estimated GFR-MDRD 32; Glucose 106 mg/dL (83-110); Potassium 4.4 mmol/L (3.5-5.1); Sodium 136 mmol/L (136-145)
[2018-02-20] MEDS: Levothyroxine Sodium 25 MCG TAB PO SCH (05:39)
[2018-02-20] MEDS: Acetaminophen 325 MG TAB PO PRN ×2 (05:39→10:47)
[2018-02-20] MEDS: Levothyroxine Sodium 112 MCG TAB PO SCH (05:39)
[2018-02-20] MEDS: ALPRAZolam 0.5 MG TAB PO SCH (07:59)
[2018-02-20] MEDS: Apixaban 5 MG TAB PO SCH ×2 (08:00→20:03)
[2018-02-20] MEDS: Ferrous Sulfate 325 MG TAB PO SCH (08:00)
[2018-02-20] MEDS: Famotidine 20 MG TAB PO SCH (08:01)
[2018-02-20] MEDS: Saccharomyces boulardii 250 MG CAP PO SCH (08:01)
[2018-02-20] MEDS: Sodium Chloride 0.9% 1,000 ML IV SCH (10:39)
[2018-02-20] MEDS: traMADol HCl 50 MG TAB PO PRN (16:41)
--- NOTE | 2018-02-20 17:09 | RAD ---
ABDOMEN ONE VIEW: 02/20/18 HISTORY: Abdominal distention. FINDINGS/IMPRESSION: Comparison is made with the exam dated 02/18/18. The bowel gas pattern is unremarkable. There are degenerative changes in the spine. Calcifications ar e stable. Postop changes and metallic hardware in the hips are again seen. POS: [facility]
[2018-02-20] MEDS: Ciprofloxacin 500 MG TAB PO SCH (19:28)
[2018-02-20] MEDS: Cefepime 2 GM, Admixture Fee 1 EACH in Sodium Chloride 0.9% 100 ML IVPB SCH (19:57)
[2018-02-20] MEDS: traZODone HCl 50 MG TAB PO SCH (20:03)
[2018-02-20] MEDS: Tamsulosin HCl 0.4 MG CAP PO SCH (20:04)
--- NOTE | 2018-02-20 22:56 | PDOC.PN ---
- Subjective Encounter Start Date: 02/20/18 Encounter Start Time: 16:30 Still has some abdominal distention and right discomfort. - Objective Resuscitation Status: Resuscitation Status FULL:Full Resuscitation Vital Signs & Weight: Vital Signs (12 hours) Temp Pulse Resp BP BP Pulse Ox 02/20/18 20:00 97.7 F 78 20 95 02/20/18 19:23 97.7 F 78 20 111/72 95 02/20/18 16:31 97.7 F 98 16 129/86 96 02/20/18 11:20 98.9 F 80 16 107/67 96 Weight Weight 115 lb 15.41 oz I&O: 02/19/18 02/20/18 02/21/18 06:59 06:59 06:59 Intake Total 2410 Output Total 650 Balance 1760 Result Diagrams: 02/17/18 03:25 02/20/18 03:53 Phys Exam - Physical Examination Constitutional: NAD Neck: no JVD, supple Respiratory: no wheezing, no rales, no rhonchi, clear to auscultation bilateral Cardiovascular: RRR, no significant murmur Gastrointestinal: soft Distended with hyperresonant percussion. Very active BS. Musculoskeletal: no edema Dx/Plan (1) Pseudomonas urinary tract infection Code(s): N39.0 - URINARY TRACT INFECTION, SITE NOT SPECIFIED; B96.5 - PSEUDOMONAS (MALLEI) CAUSING DISEASES CLASSD ELSWHR Status: Acute (2) CKD (chronic kidney disease), stage III Code(s): N18.3 - CHRONIC KIDNEY DISEASE, STAGE 3 (MODERATE) Status: Chronic Comment: Nearing baseline levels, avoid nephrotoxic meds and limit contrast exposure (3) Chronic hyponatremia Code(s): E87.1 - HYPO-OSMOLALITY AND HYPONATREMIA Status: Chronic (4) Bilateral ureteral calculi Code(s): N20.1 - CALCULUS OF URETER Status: Acute Comment: s/p bilaterla dbl J stents, chronic renal calculi (5) COPD (chronic obstructive pulmonary disease) Status: Chronic Qualifiers: COPD type: emphysema Comment: No evidence of COPD exacerbation, O2 prn, Duonebs, add Dulera 2 puffs BID (6) HTN (hypertension) Code(s): I10 - ESSENTIAL (PRIMARY) HYPERTENSION Status: Chronic Qualifiers: Hypertension type: essential hypertension Comment: Continue Diltiazem 240mg po daily, serial BP monitoring (7) Hypothyroidism Code(s): E03.9 - HYPOTHYROIDISM, UNSPECIFIED Status: Chronic Qualifiers: Hypothyroidism type: acquired Qualified Code(s): E03.9 - Hypothyroidism, unspecified - Plan * Patient was not aware that she had indwelling catheters. Discussed with ID. She has not been able to keep an IV. Do not need the PICC as she will change to po Cipro. Will need to stay on the oral abx until she has the ureteral sents addressed and repeat cultures. * X-ray abdomen.
[2018-02-21] MEDS: Sodium Chloride 0.9% 1,000 ML IV SCH ×3 (01:51→23:41)
[2018-02-21] MEDS: HYDROcodone/Acetaminophen 10/325 mg Tablet PO PRN ×4 (02:40→22:00)
[2018-02-21] MEDS: Ciprofloxacin 500 MG TAB PO SCH (05:09)
[2018-02-21] MEDS: Levothyroxine Sodium 112 MCG TAB PO SCH (05:09)
[2018-02-21] MEDS: Levothyroxine Sodium 25 MCG TAB PO SCH (05:09)
[2018-02-21 06:48] LABS: Hemoglobin 7.7 g/dL (12.0-16.0); Platelet Count 370 thou/uL (130-400)
[2018-02-21] MEDS ORDERED: Ciprofloxacin 500 MG TAB PO SCH (08:05)
--- NOTE | 2018-02-21 08:11 | PDOC.PN ---
- Subjective Encounter Start Date: 02/21/18 Encounter Start Time: 08:09 Feels ok. Still has some mild right sided abdominal discomfort. Nurse reports frequent, non-melanotic stools. - Objective Resuscitation Status: Resuscitation Status FULL:Full Resuscitation Vital Signs & Weight: Weight Weight 115 lb 15.41 oz I&O: 02/20/18 02/21/18 02/22/18 06:59 06:59 06:59 Intake Total 600 Balance 600 Result Diagrams: 02/21/18 05:13 02/21/18 05:13 Phys Exam - Physical Examination Constitutional: NAD Neck: no JVD, supple Respiratory: no wheezing, no rales, no rhonchi, clear to auscultation bilateral Cardiovascular: RRR, no significant murmur, no rub PPM left upper chest Gastrointestinal: soft Less distention. Minimal TTP right mid abdomen Psychiatric: normal affect Skin: no rash Dx/Plan (1) Pseudomonas urinary tract infection Code(s): N39.0 - URINARY TRACT INFECTION, SITE NOT SPECIFIED; B96.5 - PSEUDOMONAS (MALLEI) CAUSING DISEASES CLASSD ELSWHR Status: Acute (2) CKD (chronic kidney disease), stage III Code(s): N18.3 - CHRONIC KIDNEY DISEASE, STAGE 3 (MODERATE) Status: Chronic Comment: Worsening creatinine. Consult Nephrology (3) Chronic hyponatremia Code(s): E87.1 - HYPO-OSMOLALITY AND HYPONATREMIA Status: Chronic (4) Bilateral ureteral calculi Code(s): N20.1 - CALCULUS OF URETER Status: Acute Comment: s/p bilaterla dbl J stents, chronic renal calculi (5) COPD (chronic obstructive pulmonary disease) Status: Chronic Qualifiers: COPD type: emphysema Comment: No evidence of COPD exacerbation, O2 prn, Duonebs, add Dulera 2 puffs BID (6) HTN (hypertension) Code(s): I10 - ESSENTIAL (PRIMARY) HYPERTENSION Status: Chronic Qualifiers: Hypertension type: essential hypertension Comment: Continue Diltiazem 240mg po daily, serial BP monitoring (7) Hypothyroidism Code(s): E03.9 - HYPOTHYROIDISM, UNSPECIFIED Status: Chronic Qualifiers: Hypothyroidism type: acquired Qualified Code(s): E03.9 - Hypothyroidism, unspecified (8) Anemia Code(s): D64.9 - ANEMIA, UNSPECIFIED Status: Acute Comment: Unclear source. CT abdomen to assess for possible retroperitoneal bleed. On Eliquis, has some right sided abdominal pain. (9) Atrial fibrillation Code(s): I48.91 - UNSPECIFIED ATRIAL FIBRILLATION Status: Acute Comment: On Eliquis. Has good rate control. Now in NSR. Has PPM. - Plan * Continue abx for Pseudonmonas UTI. * Work up anemia and worsening creatinine. Can DC with oral abx when other issues stabilized.
[2018-02-21] MEDS ORDERED: Cipro 250 MG TAB PO SCH (08:15)
[2018-02-21] MEDS: ALPRAZolam 0.5 MG TAB PO SCH (08:34)
[2018-02-21] MEDS: Saccharomyces boulardii 250 MG CAP PO SCH (08:34)
[2018-02-21] MEDS: Ferrous Sulfate 325 MG TAB PO SCH (08:36)
[2018-02-21] MEDS: Famotidine 20 MG TAB PO SCH (08:41)
[2018-02-21] MEDS: Apixaban 5 MG TAB PO SCH ×2 (09:00→20:50)
--- NOTE | 2018-02-21 10:49 | CT ---
ABDOMEN AND PELVIC CT SCAN WITHOUT IV CONTRAST: Date: 02/21/18 HISTORY: 87-year-old female with history of abdominal pain and decreasing hemoglobin. Lower abdominal pain wit h concern for hemorrhage. Prior hysterectomy and cholecystectomy. FINDINGS: Bilateral pleural effusions, slightly larger on the right side, and larger than on the prior 01/11/18 study. Small, stable, 0.4 cm diameter nodule in the right middle lobe region. Minimal linear and par enchymal changes in both lung bases probably related to some subsegmental atelectasis. Small hiatal h ernia. Status post cholecystectomy. Common bile duct is mildly dilated without significant intrahepat ic ductal dilatation. Unremarkable pancreas and spleen. The kidneys have a scarred appearance bilaterally with several hemorrhagic cysts of the left kidney a nd some calcific foci in the right kidney. One irregular calcification appears to be in the renal cor maritza and the other appears to represent a right renal calculus, nonobstructing. No evidence of acute G U obstruction. The bilateral dilatation of the collecting systems seen on the prior study from bilate ral obstructing calculi have resolved. There is moderate distention of the colon with fecal material, fluid, and gas, with somewhat more dis tention than on the prior study. No significant small bowel dilatation. Significant bone demineralization with numerous thoracic and lumbar vertebral bodies, showing vertebr al collapse with right total hip replacement changes and left hip fixation screws with healed pelvic fractures. No evidence for significant free intraperitoneal fluid within the abdomen or pelvis. No retroperitone al hematoma. No evidence for aortic aneurysm. IMPRESSION: Bilateral pleural effusions, increasing from the prior study. Resolution of the previously noted bila teral ureteral calculi and associated hydronephrosis with nonobstructing right renal calculus and sev eral small left renal hemorrhagic cysts. Severe bone demineralization with numerous thoracic and lumb ar vertebral body collapses. No significant free intraperitoneal fluid within the abdomen or pelvis, or evidence for retroperitoneal hematoma. Moderate colonic distention with fecal material, fluid, and gas. Other findings as above. POS: [facility]
[2018-02-21] MEDS ORDERED: Sodium Chloride 0.9% 1,000 ML IV SCH (11:35)
--- NOTE | 2018-02-21 12:46 | CON ---
DATE OF CONSULTATION: 02/21/2018 CONSULTING PHYSICIAN: Dr. Dorman REASON FOR CONSULTATION: Acute kidney injury. REASON FOR ADMISSION: Abdominal pain and urinary tract infection. HISTORY OF PRESENT ILLNESS: Ms. Thapa is an 87-year-old female with history of complex UTI, ____ str melva, came to the hospital with abdominal pain and was found to have elevated creatinine today. Her c reatinine on admission was 1.9. Her baseline seems to be 1.62. Creatinine got better to 1.3, in the last few days it has been going up. Today it is 1.8 and Nephrology is consulted. The patient denie s any specific symptoms. No nausea, vomiting, no diarrhea, no fever or chills. No chest pain or milagro rtness of breath. PAST MEDICAL HISTORY: Possible urinary tract infection, bilateral hydronephrosis, ureteral stone, DV T, nephrolithiasis, hypertension. PAST SURGICAL HISTORY: Cholecystectomy, appendectomy, hysterectomy, hip replacement, tonsillectomy. HOME MEDICATIONS: Xanax, Eliquis, calcium carbonate, Cardizem, ferrous sulfate, Synthroid, Claritin, MiraLax, Flomax, Detrol. ALLERGIES: None noted. SOCIAL HISTORY: No smoking, alcohol. The patient is an ex-smoker. FAMILY HISTORY: No history of chronic kidney disease. REVIEW OF SYSTEMS: The following complete review of systems was negative, unless otherwise mentioned in the HPI or below: Constitutional: Weight loss or gain, ability to conduct usual activities. Skin: Rash, itching. Eyes: Double vision, pain. ENT/Mouth: Nose bleeding, neck stiffness, pain, tenderness. Cardiovascular: Palpitations, dyspnea on exertion, orthopnea. Respiratory: Shortness of breath, wheezing, cough, hemoptysis, fever or night sweats. Gastrointestinal: Poor appetite, abdominal pain, heartburn, nausea, vomiting, constipation, or diarrhea. Genitourinary: Urgency, frequency, dysuria, nocturia. Musculoskeletal: Pain, swelling. Neurologic/Psychiatric: Anxiety, depression. Allergy/Immunologic: Skin rash, bleeding tendency. PHYSICAL EXAMINATION: GENERAL: This is an elderly female in no apparent distress. VITAL SIGNS: Temperature 98.9, pulse 70, respiratory rate 18, blood pressure 111/76. HEENT: Atraumatic, normocephalic. Oral mucosa is moist. NECK: Supple. HEART: S1, S2 heard. Rate and rhythm regular. RESPIRATORY: Clear. ABDOMEN: Abdomen is soft. MUSCULOSKELETAL: No tenderness. No edema. DERMATOLOGIC: No skin rash. NEUROLOGIC: Alert, awake. PSYCHIATRIC: Normal mood and affect. LABORATORY AND X-RAY FINDINGS: Potassium 4.4. BUN 22, creatinine is 1.5. Hemoglobin is 7.7. ASSESSMENT AND PLAN: 1. Acute kidney injury on chronic kidney disease stage 3. We will add IV fluids as tolerated. Incr ease oral hydration. 2. Hyponatremia, better. 3. Metabolic acidosis, stable. 4. Anemia, rule out bleed. 5. Hypertension, stable. 6. Urinary tract infection with Pseudomonas urinary tract infection. Continue antibiotics and follo w up cultures. Plan is to hydrate her slowly, avoid nephrotoxins. Renally dose medications. We will continue gentl e hydration as tolerated. We will follow. Continue broad spectrum antibiotics.
[2018-02-21 13:50] LABS: Hemoglobin 8.1 g/dL (12.0-16.0)
[2018-02-21] MEDS: traZODone HCl 50 MG TAB PO SCH (20:49)
[2018-02-21] MEDS: Cipro 250 MG TAB PO SCH (20:49)
[2018-02-21] MEDS: Tamsulosin HCl 0.4 MG CAP PO SCH (20:49)
[2018-02-22] MEDS: Acetaminophen 325 MG TAB PO PRN (02:38)
[2018-02-22 04:22] LABS: #Basophils 0.1 thou/uL (0.0-0.2); #Eosinphils 0.1 thou/uL (0.0-0.7); #Lymphocytes 1.6 thou/uL (1.20-3.40); #Monocytes 1.5 thou/uL (0.11-0.59); #Neutrophils 7.4 thou/uL (1.40-6.50); %Basophils 0.5 % (0.0-1.0); %Eosinophils 1.3 % (0.0-10.0); %Lymphocytes 15.2 % (21.0-51.0); %Monocytes 14.1 % (0.0-10.0); %Neutrophils 68.9 % (42.0-75.0); Hemoglobin 7.7 g/dL (12.0-16.0); Mean Corpuscular HGB CONC 34.2 g/dL (32.0-36.0); Mean Corpuscular Hemoglobin 32.9 pg (27.0-31.0); Mean Corpuscular Volume 96.3 fL (78.0-98.0); Mean Platelet Volume 7.1 fL (7.4-10.4); Platelet Count 415 thou/uL (130-400); RBC Distribution Width 18.5 % (11.5-14.5); Red Blood Cell (RBC) Count 2.35 mill/uL (4.20-5.40); White Blood Cell (WBC) Count 10.7 thou/uL (4.8-10.8)
[2018-02-22 04:37] LABS: Anion Gap 11 mmol/L (10-20); BUN (Urea Nitrogen) 28 mg/dL (9.8-20.1); Calc. Creatinine Clearance 18 mL/min (70-130); Carbon Dioxide 20 mmol/L (23-31); Chloride 109 mmol/L (98-107); Estimated GFR-MDRD 25; Glucose 95 mg/dL (83-110); Potassium 4.8 mmol/L (3.5-5.1); Sodium 135 mmol/L (136-145)
[2018-02-22] MEDS: Levothyroxine Sodium 25 MCG TAB PO SCH (04:45)
[2018-02-22] MEDS: Levothyroxine Sodium 112 MCG TAB PO SCH (04:45)
[2018-02-22] MEDS: Cipro 250 MG TAB PO SCH ×2 (04:45→20:16)
[2018-02-22] MEDS: HYDROcodone/Acetaminophen 10/325 mg Tablet PO PRN ×3 (04:45→19:00)
[2018-02-22] MEDS: Famotidine 20 MG TAB PO SCH (07:52)
[2018-02-22] MEDS: Ferrous Sulfate 325 MG TAB PO SCH (07:52)
[2018-02-22] MEDS: Saccharomyces boulardii 250 MG CAP PO SCH (07:52)
[2018-02-22] MEDS: ALPRAZolam 0.5 MG TAB PO SCH (07:53)
[2018-02-22] MEDS: Apixaban 5 MG TAB PO SCH ×2 (07:54→20:16)
[2018-02-22] MEDS: Sodium Chloride 0.9% 1,000 ML IV SCH ×2 (07:55→20:17)
[2018-02-22] MEDS: traMADol HCl 50 MG TAB PO PRN ×2 (10:51→23:34)
--- NOTE | 2018-02-22 12:03 | PRG ---
Patient Name: RAJWINDER RENAE Date of service: 02/22/2018 Subjective: Patient was seen and examined at bedside and overnight events noted. Patient denies any shortness of breath or chest pain or palpitation. No history of nausea or vomiting or diarrhea or fever or chills or cramps. Objective: General: This is an elderly female in no apparent distress. Vital signs: Temperature 96, pulse 80, respirations 16, blood pressure 112/69. HEENT: Atraumatic, normocephalic. Oral mucosa is moist. Neck: Supple. Cardiovascular: S1 S2 heard. Rate and rhythm regular. Respiratory: Clear to auscultation. Gastrointestinal: Abdomen is soft. Musculoskeletal: No tenderness. No edema. Dermatologic: No skin rash. Neurologic: Alert and awake and oriented X3. No focal neurologic deficits. Moving all the extremit ies. Psychiatric: Mood and affect normal. LABORATORY DATA: Potassium is 4.8, BUN 28, creatinine is 1.9. ASSESSMENT AND PLAN: 1. Acute kidney injury on chronic kidney stage 3. Renal function with worsening, questionable aller gic interstitial nephritis. We will check urine eosinophils. 2. Hyponatremia. 3. Metabolic acidosis. 4. Hypertension, stable. 5. Urinary tract infection currently on Cipro. Not sure if Cipro is causing the acute allergic inte rstitial nephritis. Medication list reviewed. No other agents are identified. I will follow.
--- NOTE | 2018-02-22 14:09 | PDOC.PN ---
- Subjective Encounter Start Date: 02/22/18 Encounter Start Time: 12:30 Still complains of some generalized abdominal pain. Have good BM's. - Objective Resuscitation Status: Resuscitation Status FULL:Full Resuscitation Vital Signs & Weight: Vital Signs (12 hours) Temp Pulse Resp BP BP Pulse Ox 02/22/18 10:51 81 112/69 02/22/18 08:54 98.6 F 81 16 112/69 98 02/22/18 08:00 98.6 F 81 16 98 Weight Weight 115 lb 15.41 oz I&O: 02/21/18 02/22/18 02/23/18 06:59 06:59 06:59 Intake Total 600 Balance 600 Result Diagrams: 02/22/18 03:28 02/22/18 03:28 Phys Exam - Physical Examination Constitutional: NAD HEENT: oral pharynx no lesions Neck: no JVD, supple Respiratory: no wheezing, no rales, no rhonchi, clear to auscultation bilateral Cardiovascular: RRR, no significant murmur Gastrointestinal: soft, no distention, positive bowel sounds Tender to the most modest palpation. Musculoskeletal: no edema Psychiatric: normal affect Skin: normal turgor Dx/Plan (1) Pseudomonas urinary tract infection Code(s): N39.0 - URINARY TRACT INFECTION, SITE NOT SPECIFIED; B96.5 - PSEUDOMONAS (MALLEI) CAUSING DISEASES CLASSD ELSWHR Status: Acute (2) CKD (chronic kidney disease), stage III Code(s): N18.3 - CHRONIC KIDNEY DISEASE, STAGE 3 (MODERATE) Status: Chronic Comment: Worsening creatinine. Consult Nephrology. Keep another day to monitor renal function. (3) Chronic hyponatremia Code(s): E87.1 - HYPO-OSMOLALITY AND HYPONATREMIA Status: Chronic (4) Bilateral ureteral calculi Code(s): N20.1 - CALCULUS OF URETER Status: Acute Comment: Discussed with Dr. Chinchilla. She definitely does not have the stents and there is nothing further to be done for her from the urology standpoint. She is comfortable with discharge. 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 CT abdomen to assess for possible retroperitoneal bleed. On Eliquis, has some right sided abdominal pain. (9) Atrial fibrillation Code(s): I48.91 - UNSPECIFIED ATRIAL FIBRILLATION Status: Acute Comment: On Eliquis. Has good rate control. Now in NSR. Has PPM. (10) Opioid dependence Code(s): F11.20 - OPIOID DEPENDENCE, UNCOMPLICATED Status: Acute Comment: The patient's son confirmed today that the patient has an opioid dependence and her abdominal pain is the primary source of her acquiring the opioids. Dr. Chinchilla confirmed this as well. The patient follows with Dr. Shrestha for pain management. (11) Abdominal pain Code(s): R10.9 - UNSPECIFIED ABDOMINAL PAIN Status: Chronic Qualifiers: Abdominal location: epigastric Qualified Code(s): R10.13 - Epigastric pain Comment: non-specific without identifiable source, suspect due to chronic narcotic therapy, monitor bowel regimen, Abd CT negative. - Plan * Hope to discharge on oral abx tomorrow if renal function will allow.
[2018-02-22 16:15] LABS: Creatinine, Urine 102.28 mg/dL (47-110)
[2018-02-22] MEDS: traZODone HCl 50 MG TAB PO SCH (20:16)
[2018-02-22] MEDS: Tamsulosin HCl 0.4 MG CAP PO SCH (20:16)
[2018-02-23] MEDS: HYDROcodone/Acetaminophen 10/325 mg Tablet PO PRN ×3 (02:56→19:54)
[2018-02-23] MEDS: Cipro 250 MG TAB PO SCH ×2 (05:25→19:54)
[2018-02-23] MEDS: Levothyroxine Sodium 25 MCG TAB PO SCH (05:25)
[2018-02-23] MEDS: Levothyroxine Sodium 112 MCG TAB PO SCH (05:25)
[2018-02-23 05:38] LABS: Hemoglobin 7.2 g/dL (12.0-16.0); Platelet Count 451 thou/uL (130-400)
[2018-02-23] MEDS: Apixaban 5 MG TAB PO SCH ×2 (07:40→19:53)
[2018-02-23] MEDS: Saccharomyces boulardii 250 MG CAP PO SCH (07:42)
[2018-02-23] MEDS: Famotidine 20 MG TAB PO SCH (07:43)
[2018-02-23] MEDS: ALPRAZolam 0.5 MG TAB PO SCH (07:43)
[2018-02-23] MEDS: Ferrous Sulfate 325 MG TAB PO SCH (07:43)
[2018-02-23] MEDS: Sodium Chloride 0.9% 1,000 ML IV SCH (07:45)
--- NOTE | 2018-02-23 13:44 | PRG ---
DATE OF SERVICE: 02/23/2018 SUBJECTIVE: Patient was seen and examined at bedside and overnight events noted. Patient denies any shortness of breath or chest pain or palpitation. No history of nausea or vomiting or diarrhea or f ever or chills or cramps. OBJECTIVE: GENERAL: This is an elderly female in no apparent distress. VITAL SIGNS: Temperature 97.9, pulse 78, respiratory rate 16, blood pressure 129/72. HEENT: Atraumatic, normocephalic. Oral mucosa is moist. NECK: Supple. CARDIOVASCULAR: S1, S2 heard. Rate and rhythm regular. RESPIRATORY: Clear to auscultation. GASTROINTESTINAL: Abdomen is soft. MUSCULOSKELETAL: No tenderness. No edema. DERMATOLOGIC: No skin rash. NEUROLOGIC: Alert and awake and oriented x3. No focal neurologic deficits. Moving all the extremiti es. PSYCHIATRIC: Mood and affect normal. LABORATORY DATA: Potassium is 4.8, creatinine is 1.6. ASSESSMENT AND PLAN: 1. Acute kidney injury, chronic disease, better. 2. Hyponatremia. 3. Metabolic acidosis. 4. Hypertension, stable. 5. Urinary tract infection . 6. Overall renal function is stable. We will follow.
--- NOTE | 2018-02-23 16:35 | PDOC.PN ---
- Subjective Encounter Start Date: 02/23/18 Encounter Start Time: 11:45 Still complains of her abdominal pain. Her usual baseline. No other complaints. - Objective Resuscitation Status: Resuscitation Status FULL:Full Resuscitation Vital Signs & Weight: Vital Signs (12 hours) Temp Pulse Resp BP Pulse Ox 02/23/18 07:54 97.9 F 79 16 129/72 98 Weight Weight 115 lb 15.41 oz Result Diagrams: 02/23/18 04:29 02/23/18 04:29 Phys Exam - Physical Examination Constitutional: NAD Respiratory: no wheezing, no rales, no rhonchi Cardiovascular: RRR, no significant murmur Gastrointestinal: soft, no distention, positive bowel sounds Mild diffuse TTP Musculoskeletal: no edema Dx/Plan (1) Pseudomonas urinary tract infection Code(s): N39.0 - URINARY TRACT INFECTION, SITE NOT SPECIFIED; B96.5 - PSEUDOMONAS (MALLEI) CAUSING DISEASES CLASSD ELSWHR Status: Acute (2) CKD (chronic kidney disease), stage III Code(s): N18.3 - CHRONIC KIDNEY DISEASE, STAGE 3 (MODERATE) Status: Chronic Comment: Stable creat now. Discussed with Nephrology. OK to discharge. (3) Chronic hyponatremia Code(s): E87.1 - HYPO-OSMOLALITY AND HYPONATREMIA Status: Chronic (4) Bilateral ureteral calculi Code(s): N20.1 - CALCULUS OF URETER Status: Acute Comment: Discussed with Dr. Chinchilla. She definitely does not have the stents and there is nothing further to be done for her from the urology standpoint. She is comfortable with discharge. 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 DW Nephrology. Possibly related to CKD. Will transfuse one unit. (9) Atrial fibrillation Code(s): I48.91 - UNSPECIFIED ATRIAL FIBRILLATION Status: Acute Comment: On Eliquis. Has good rate control. Now in NSR. Has PPM. (10) Opioid dependence Code(s): F11.20 - OPIOID DEPENDENCE, UNCOMPLICATED Status: Acute Comment: The patient's son confirmed today that the patient has an opioid dependence and her abdominal pain is the primary source of her acquiring the opioids. Dr. Chinchilla confirmed this as well. The patient follows with Dr. Shrestha for pain management. (11) Abdominal pain Code(s): R10.9 - UNSPECIFIED ABDOMINAL PAIN Status: Chronic Qualifiers: Abdominal location: epigastric Qualified Code(s): R10.13 - Epigastric pain Comment: non-specific without identifiable source, suspect due to chronic narcotic therapy, monitor bowel regimen, Abd CT negative. - Plan * Discussed with patient's son and patient. Anticipate discharge in a.m.
[2018-02-23] MEDS: traZODone HCl 50 MG TAB PO SCH (19:53)
[2018-02-23] MEDS: Tamsulosin HCl 0.4 MG CAP PO SCH (19:53)
[2018-02-24] MEDS: HYDROcodone/Acetaminophen 10/325 mg Tablet PO PRN ×2 (02:22→08:18)
[2018-02-24] MEDS: Levothyroxine Sodium 112 MCG TAB PO SCH (05:04)
[2018-02-24] MEDS: Sodium Chloride 0.9% 1,000 ML IV SCH ×2 (05:04→08:57)
[2018-02-24] MEDS: Levothyroxine Sodium 25 MCG TAB PO SCH (05:04)
[2018-02-24] MEDS: Cipro 250 MG TAB PO SCH (05:04)
[2018-02-24] MEDS: traMADol HCl 50 MG TAB PO PRN ×2 (05:05→12:31)
[2018-02-24] MEDS: ALPRAZolam 0.5 MG TAB PO SCH (08:17)
[2018-02-24] MEDS: Apixaban 5 MG TAB PO SCH (08:18)
[2018-02-24] MEDS: Famotidine 20 MG TAB PO SCH (08:19)
[2018-02-24] MEDS: Saccharomyces boulardii 250 MG CAP PO SCH (08:20)
[2018-02-24] MEDS: Ferrous Sulfate 325 MG TAB PO SCH (08:20)
[2018-02-24 10:32] LABS: Hemoglobin 10.5 g/dL (12.0-16.0)
--- NOTE | 2018-02-24 16:07 | PRG ---
DATE OF SERVICE: 02/24/2018 SUBJECTIVE: Patient was seen and examined at bedside and overnight events noted. Patient denies any shortness of breath or chest pain or palpitation. No history of nausea or vomiting or diarrhea or f ever or chills or cramps. OBJECTIVE: General: This is an elderly female in no apparent distress. Vital Signs: Temperature 98.2, pulse 82, respiratory rate 18, and blood pressure 134/79. HEENT: Atraumatic, normocephalic, Oral mucosa is moist. Neck: Supple. Cardiovascular: S1 and S2 heard. Rate and rhythm regular. Respiratory: Clear to auscultation. Gastrointestinal: Abdomen is soft. Musculoskeletal: No tenderness, No edema. Dermatologic: No skin rash. Neurologic: Alert and awake and oriented x3. No focal neurologic deficits. Moving all the extremit ies. Psychiatric: Mood and affect normal. LABORATORY DATA: Potassium is 4. No labs done today. ASSESSMENT AND PLAN: 1. Acute kidney injury on chronic kidney stage 3, stable. 2. Metabolic acidosis. 3. Hypertension. 4. Urinary tract infection. 5. Renal function is stable.
[2018-02-24 16:28] VITALS: BP 138/79; TEMP 97.9
--- NOTE | 2018-02-25 22:56 | DIS ---
DATE OF ADMISSION: 02/16/2018 DATE OF DISCHARGE: 02/24/2018 DISCHARGE DIAGNOSES: 1. Urinary tract infection with Pseudomonas. 2. Chronic kidney disease, stage 3. 3. Chronic hyponatremia. 4. History of bilateral ureteral calculi with persistent parenchymal calculi. 5. Chronic obstructive pulmonary disease. 6. Hypertension. 7. Hypothyroidism. 8. Anemia. 9. Atrial fibrillation. 10. Opioid dependence. 11. Chronic abdominal pain with no pathology found, likely related to her chronic narcotic therapy. HISTORY: This patient is an 87-year-old female who has a history of chronic kidney disease and urete rolithiasis with ureteral stents. The patient had just recently been treated for the ureterolithiasi s with the insertion of bilateral ureteral stents and subsequent development of VRE. Once the patien t had improved from that, she subsequently developed another urinary tract infection on this admissio n with the growth ultimately of Pseudomonas. HOSPITAL COURSE: The patient was admitted to the hospital and started on IV antibiotics, awaiting ur ine cultures. Ultimately, it did grow the Pseudomonas. She was seen by Dr. Lipscomb in consultation an d her medications were converted from Rocephin to oral ciprofloxacin. The patient was felt to be sta ble for discharge; however, she subsequently had persistent abdominal pain. A CT scan was performed, which was unremarkable. At the same time, the patient was also having a decline in her hemoglobin. Any retroperitoneal bleeds were ruled out with the CT scan. She had a negative stool Hemoccult. Sh e had ultimately drifted down to requiring a transfusion of 1 unit of packed red blood cells. She to lerated that well and her hemoglobin appeared to remain stable. The patient also had some slight wor sening of her renal function. Nephrology was consulted and the patient was given some IV fluids. He r kidney function remained relatively stable after that. Her hemoglobin was stable and she was gonzalo ating the oral antibiotics. She was felt to be stable. I had several discussions with her son, Ananth. He made it clear that the patient has chronic opioid dependence and uses her abdominal pain symptom s in order to facilitate that. Therefore, we felt no further investigation of the abdominal pain was indicated. DISPOSITION: The patient will be discharged on renal diet. Her activity level is as tolerated and s he will continue to have physical therapy. DISCHARGE MEDICATIONS: She will be on Cipro 250 mg p.o. b.i.d., Florastor 250 mg every day, and cont inue with her usual medications of trazodone 50 mg at bedtime, Xanax 0.25 daily, Flexeril 10 mg daily as needed, Theragran-M 1 p.o. daily, clonidine 0.1 mg q.4. hours p.r.n. systolic greater than 180, E liquis 2.5 mg b.i.d., Feosol 325 mg p.o. daily, levothyroxine 137 mcg daily, Pepcid 20 mg b.i.d., vit priest D3 1000 units daily, MiraLax 17 grams daily, Flomax 0.4 mg at bedtime, Tylenol Extra Strength 10 00 mg q.6 hours p.r.n., milk of magnesia 30 mL daily p.r.n., Dulcolax p.r.n., diltiazem 240 mg p.o. d aily, Sherwood 1 p.o. q.6 hours p.r.n. pain, calcium with vitamin D 1 p.o. daily, and DuoNeb q.i.d. p.r. n. She is to stop the Zofran because of interactions with Cipro. PHYSICAL EXAMINATION: VITAL SIGNS: On the day of discharge, temperature was 97.9, pulse was 80, respirations 20, O2 sat 95 % on room air, BP was 138/79. GENERAL: Awake, alert, pleasant, cooperative. HEART: Regular without murmur. LUNGS: Clear. ABDOMEN: Benign. Hemoglobin was 10.4, hematocrit 31.4. The patient is encouraged to follow up with her PCP and to see Dr. Lipscomb in 1 week when she has completed the Cipro. She should return to the emergency department should she have any problems prior to that time.
--- NOTE | 2018-02-26 17:13 | PQF ---
[employer] RAJWINDER Brush DAVID R MD [id number] CLINICAL DOCUMENTATION CLARIFICATION FORM: POST DISCHARGE Please exercise your independent, professional judgment in responding to the clarification form. Clinical indicators are provided on the bottom of this form for your review Please check appropriate box(s): [ x ] UTI please specify if due to or related to (as applicable): [ x] Recent ureteral stent placements [ ] Unable to determine etiology UTI Site: [ ] Kidney [ ] Ureter [ ] Bladder [ ] Urethra [ ] Unable to determine [ ] Other diagnosis [ ] Unable to determine In addition, please specify: Present on Admission (POA): [ x] Yes [ ] No [ ] Unable to determine For continuity of documentation, please document condition throughout progress notes and discharge summary. Thank You. CLINICAL INDICATORS - SIGNS / SYMPTOMS / LABS Positive urinalysis Hematuria Fever Documentation: UTI RISK FACTORS History recent nephrolithiasis Immunocompromised Debility / [facility] resident TREATMENT: Antibiotics [place] cath removed / changed (This form is maintained as a part of the permanent medical record) 2014 [employer]. All Rights Reserved [email or web address] [phone] STEPHANIE
== END 2018-02-24 17:25 | DRG 699 ==
LOC: ERS 15:32 → T4-A 18:20
PROVIDERS: ADMIT Internal Medicine; ATTEND Internal Medicine
DX: T83.593A Infection and inflammatory reaction due to other urinary stents, initial encounter (principal); N17.9 Acute kidney failure, unspecified; N20.1 Calculus of ureter; E87.1 Hypo-osmolality and hyponatremia; E87.2 Acidosis; F11.20 Opioid dependence, uncomplicated; B96.5 Pseudomonas (aeruginosa) (mallei) (pseudomallei) as the cause of diseases classified elsewhere; N18.3 Chronic kidney disease, stage 3 (moderate); I12.9 Hypertensive chronic kidney disease with stage 1 through stage 4 chronic kidney disease, or unspecified chronic kidney disease; R10.13 Epigastric pain; D63.1 Anemia in chronic kidney disease; J44.9 Chronic obstructive pulmonary disease, unspecified; I48.91 Unspecified atrial fibrillation; Z86.718 Personal history of other venous thrombosis and embolism; E03.9 Hypothyroidism, unspecified; Z79.01 Long term (current) use of anticoagulants; Z87.891 Personal history of nicotine dependence; Z95.0 Presence of cardiac pacemaker; Y83.1 Surgical operation with implant of artificial internal device as the cause of abnormal reaction of the patient, or of later complication, without mention of misadventure at the time of the procedure
CPT/HCPCS: 36415; 36430; 74018; 74176; 80048; 80053; 81003; 81015; 82274; 82565; 82570; 82977; 83690; 84300; 85014; 85018; 85025; 85049; 86850; 86900; 86901; 87040; 87077; 87086; 87186; 89190; 96365; 96367; 96375; A4216; G8978-GP-CM; G8979-GP-CK; J0692; J0878; J3010; J7050; P9016

== ENCOUNTER 2018-03-15 06:28 | Observation (INO) | payer MEDICARE ==
[2018-03-15 07:27] LABS: #Basophils 0.1 thou/uL (0.0-0.2); #Eosinphils 0.1 thou/uL (0.0-0.7); #Lymphocytes 0.9 thou/uL (1.20-3.40); #Monocytes 0.3 thou/uL (0.11-0.59); #Neutrophils 2.6 thou/uL (1.40-6.50); %Basophils 1.5 % (0.0-1.0); %Eosinophils 2.8 % (0.0-10.0); %Lymphocytes 22.4 % (21.0-51.0); %Monocytes 8.5 % (0.0-10.0); %Neutrophils 64.9 % (42.0-75.0); Hemoglobin 11.4 g/dL (12.0-16.0); Mean Corpuscular HGB CONC 31.8 g/dL (32.0-36.0); Mean Platelet Volume 6.9 fL (7.4-10.4); Platelet Count 359 thou/uL (130-400); RBC Distribution Width 16.9 % (11.5-14.5); Red Blood Cell (RBC) Count 3.55 mill/uL (4.20-5.40); White Blood Cell (WBC) Count 4.1 thou/uL (4.8-10.8)
[2018-03-15 07:50] LABS: ALT (SGPT) 11 U/L (8-55); AST (SGOT) 20 U/L (5-34); Albumin 4.2 g/dL (3.4-4.8); Alkaline Phosphatase 93 U/L (40-150); Anion Gap 21 mmol/L (10-20); BUN (Urea Nitrogen) 21 mg/dL (9.8-20.1); Bilirubin, Total 0.5 mg/dL (0.2-1.2); CK (CPK) 24 U/L (29-168); Calc. Creatinine Clearance 0 mL/min (70-130); Calcium 9.4 mg/dL (7.8-10.44); Carbon Dioxide 20 mmol/L (23-31); Chloride 99 mmol/L (98-107); Estimated GFR-MDRD 27; Globulin 2.3 g/dL (2.4-3.5); Glucose 86 mg/dL (83-110); Lipase 14 U/L (8-78); Potassium 4.1 mmol/L (3.5-5.1); Protein, Total 6.5 g/dL (6.0-8.3); Sodium 136 mmol/L (136-145)
[2018-03-15 07:54] LABS: CKMB 1.7 ng/mL (0-6.6); Troponin I Less than 0.010 ng/mL (< 0.028)
[2018-03-15] MEDS ORDERED: Acetaminophen 325 MG TAB ONE (07:56)
[2018-03-15] MEDS ORDERED: Nitroglycerin 2% Ointment 1 INCH/1 GM Packet ONE (07:56)
--- NOTE | 2018-03-15 08:30 | RAD ---
PORTABLE CHEST: 03/15/2018 PROVIDED CLINICAL HISTORY: Difficulty breathing and chest pain. COMPARISON: 01/11/2018 FINDINGS: The cardiac silhouette appears enlarged. Left subclavian cardiac pacing device is again noted, with the tips overlying the expected locations of RA and RV. Bibasilar pleural parenchymal opacities are noted. Chronic appearing lung changes are seen. No evidence for pneumothorax. IMPRESSION: Bibasilar parenchymal opacities, likely reflecting pleural fluid and adjacent passive atelectasis. F ollowup recommended. POS: RAMIREZ
[2018-03-15] MEDS ORDERED: Furosemide 40 MG/4 ML VIAL ONE (10:16)
[2018-03-15 10:31] LABS: Magnesium 2.1 mg/dL (1.6-2.6); Phosphorus 3.9 mg/dL (2.3-4.7)
--- NOTE | 2018-03-15 11:40 | HP ---
DATE OF ADMISSION: 03/15/2018 CHIEF COMPLAINT: Chest discomfort. HISTORY OF PRESENT ILLNESS: Patient is an 87-year-old female currently residing at [facility], was brought in by EMS with chest discomfort. Patient has a history of atrial fibrillation, hypertension with recent hospitalization for Pseudomonas urinary tract infection. Post-discharge, patient felt fine. Over the past couple of days, patient developed gradual worsening shortness of breath that was worse on exertion. She is somewhat poor historian and cannot provide further details about the shortness of breath. Since yesterday evening, she has substernal chest discomfort associated with some nausea. Chest discomfort is moderate in intensity without any radiation. Again, she is unable to provide further details. She is compliant with all of her medications. She denies recent immobilization, travel, cough, wheezing, fever, dysuria, hematuria, urgency. She is currently on Eliquis for atrial fibrillation. PAST MEDICAL HISTORY: 1. Atrial fibrillation. 2. Hypertension. 3. Renal calculi requiring stent placement. 4. Gastroesophageal reflux disease. 5. Hypothyroidism. 6. Recent Pseudomonas urinary tract infection. 7. History of DVT. 8. Chronic obstructive pulmonary disease. 9. Osteoporosis. PAST SURGICAL HISTORY: 1. Ablation for atrial arrhythmias. 2. Cholecystectomy. 3. Ureteral stent placement. 4. Appendectomy. 5. Total abdominal hysterectomy. 6. Right total knee replacement. 7. Left total hip replacement. 8. Tonsillectomy. 9. Dual-chamber pacemaker placement. ALLERGIES: Patient denies any drug allergies. HOME MEDICATIONS: To be verified with the nursing facility. She does not remember all of her medications. SOCIAL HISTORY: She is a former smoker. Denies any current use of smoking, alcohol or drug use. She makes her own decisions with the help of her son, Fawad. His phone number is [phone]. FAMILY HISTORY: Negative for heart disease. Positive for coronary artery disease. REVIEW OF SYSTEMS: Cannot be reliably obtained from the patient due to the same reason. PHYSICAL EXAMINATION: VITAL SIGNS: Temperature 98.8, respiration 18, pulse rate of 83, blood pressure 146/135. Repeat blood pressure was 152/78. She is saturating 99% on room air. GENERAL: An 87-year-old female in no apparent distress. Denies any chest discomfort at this time. HEENT: Head is atraumatic, normocephalic, Sclerae are anicteric. Moist mucous membrane, no oral lesion. NECK: Supple, no JVD. LUNGS: Examination showed decreased air entry with scattered rales at bases. No wheezing or rhonchi. No significant accessory muscle use. HEART: S1 and S2 present. Regular rate and rhythm, 2/6 systolic murmur over the mitral area. ABDOMEN: Soft, no rebound or guarding, no costovertebral angle tenderness. EXTREMITIES: 1+ edema in bilateral lower extremities. No calf tenderness. NEUROLOGIC: Grossly nonfocal, moves all four extremities. PSYCHIATRY: Alert and awake. SKIN: Warm and dry. LYMPH NODES: No palpable lymph nodes in the neck. PERIPHERAL VASCULAR: Radial pulses palpable bilaterally. MUSCULOSKELETAL: No joint swelling or tenderness. LABORATORY DATA AND IMAGING DATA: CBC showed WBC 4.1 with hemoglobin 11.4, hematocrit 35.7, platelet 359. Chemistries showed sodium 136, potassium 4.1, chloride 99, bicarbonate 20, BUN 21, creatinine 1.8. Troponin was negative. Magnesium and phosphorus normal range. BNP 879. BNP in November was 424. Chest x -ray by my review showed small bilateral pleural effusion with atelectasis. EKG by my review showed paced rhythm. IMPRESSION: 1. Chest discomfort, rule out acute coronary syndrome. 2. Shortness of breath, suspected secondary to acute on chronic diastolic heart failure exacerbation. 3. History of atrial fibrillation and deep venous thrombosis on chronic anticoagulation. 4. Tachybrady syndrome, status post dual chamber pacemaker placement in 2017. 5. Chronic kidney disease stage 3. 6. Hypertension. 7. Chronic obstructive pulmonary disease. 8. Physical deconditioning. 9. Osteoporosis. 10. Chronic anemia. 11. Mild cognitive deficits. 12. Hypothyroidism. 13. Recent Clostridial difficile infection. PLAN: Patient will be monitored in the telemetry unit as observation. Cardiology will be consulted. We will keep her n.p.o. for further cardiac workup if indicated. Patient had echocardiogram earlier this year that showed ejection fraction 50%-55% with diastolic dysfunction and moderately dilated left atrium. We will continue serial troponins. Confirm home medications and start accordingly. Plan of care was discussed with the patient in detail. She stated understanding. MTDD
[2018-03-15] MEDS ORDERED: Senokot 8.6 MG TAB PO PRN (11:48)
[2018-03-15] MEDS ORDERED: Ondansetron HCl/PF 4 MG/2 ML Vial IVP PRN (11:48)
[2018-03-15] MEDS ORDERED: Nitroglycerin 0.4 MG TAB (25 Tab Bottle) PO PRN (11:48)
[2018-03-15] MEDS ORDERED: Ondansetron ODT 4 MG TAB PO PRN (11:48)
[2018-03-15] MEDS ORDERED: Calcium Carbonate 500 MG ChewTAB PO PRN (11:48)
[2018-03-15 12:16] VITALS: BMI 19.3
[2018-03-15] MEDS ORDERED: cloNIDine 0.1 MG TAB PO PRN (13:21)
[2018-03-15] MEDS: HYDROcodone/Acetaminophen 10/325 mg Tablet PO PRN ×2 (13:55→20:12)
[2018-03-15 13:57] LABS: Troponin I 0.019 ng/mL (< 0.028)
[2018-03-15] MEDS: Vancomycin HCl 25 MG/ML Oral PO SCH ×2 (16:39→20:21)
[2018-03-15] MEDS: Acetaminophen 325 MG TAB PO PRN ×2 (16:42→23:54)
--- NOTE | 2018-03-15 17:59 | CON ---
DATE OF CONSULTATION: 03/15/2018 REASON FOR CONSULTATION: Shortness of breath. PRIMARY ELECTRIC STOVE INSTALLER: J Luis Soto M.D. HISTORY OF PRESENT ILLNESS: Mr. Thapa is a very pleasant 87-year-old white female who comes to the ospital for increased shortness of breath. She lives at [facility] and started noticing increa sing shortness of breath with chest tightness. She was admitted for this and she was given a dose of IV Lasix and has diuresed several liters of fluid and she states she feels much better now. She has a history of diastolic heart failure and chronic atrial fibrillation. She has had a previous AVJ ab lation with a pacemaker insertion. She is currently in underlying atrial flutter, but a paced rhythm . She was recently admitted for Pseudomonas urinary tract infection, complicated. Ms. Thapa tells m carlos that her biggest issue was really not chest pain, but more of her shortness of breath and it got be tter after diuresing. She also tells me that she would like to have conservative therapy. She does not want any invasive interventions at this time. She otherwise has no other issues for me. PAST MEDICAL HISTORY: 1. History of chronic atrial fibrillation. 2. Hypertension. 3. History of renal calculi, requiring stent placement. 4. Gastroesophageal reflux disease. 5. Hypothyroidism. 6. Complicated UTIs. 7. DVTs in the past. 8. COPD. 9. Osteoporosis. PAST SURGICAL HISTORY: 1. Atrial arrhythmias with ablations including AVJ ablation. 2. Pacemaker placement. 3. Cholecystectomy. 4. Ureteral stent placement. 5. Appendectomy. 6. Total abdominal hysterectomy. 7. Right total knee replacement. 8. Left total hip replacement. 9. Tonsillectomy. OUTPATIENT MEDICATIONS: 1. Clonidine p.r.n. 2. Vancomycin. 3. Loratadine. 4. Diltiazem 240 mg a day. 5. Vitamin D3. 6. Calcium and vitamin D3. 7. Dulcolax p.r.n. 8. Eliquis 2.5 mg b.i.d. 9. Xanax. 10. Trazodone. 11. Tolterodine. 12. Flomax. 13. Florastor. 14. MiraLax. 15. Theragran which is multivitamin. 16. Milk of magnesia. 17. Synthroid 137 mcg a day. 18. DuoNebs. 19. [place] p.r.n. 20. Lasix 20 mg a day. 21. Ferrous sulfate. 22. Famotidine. 23. Tylenol. ALLERGIES: No known drug allergies. SOCIAL HISTORY: No alcohol, tobacco or drugs. Lives at [facility] currently. FAMILY HISTORY: Noncontributory. REVIEW OF SYSTEMS: A 12-point review of systems is done and is all negative unless stated in history of present illness. PHYSICAL EXAMINATION: VITAL SIGNS: Temperature 99.7, pulse 80, respiratory rate 24, satting 98% on 1 liter nasal cannula, blood pressure 145/68. GENERAL: Awake, alert, oriented x3, nondistressed. HEENT: Normocephalic, atraumatic. NECK: Supple. LUNGS: Lungs are clear. CARDIOVASCULAR: S1, S2, no S3, S4. ABDOMEN: Soft, positive bowel sounds. EXTREMITIES: No edema. SKIN: Warm and dry. LABORATORY WORK: Reviewed. Troponin is negative x3. BNP was 879. Magnesium was 2.1, potassium was 4.1, anion gap was 21, BUN of 29, creatinine 1.8, GFR of 27. CBC: White count of 4, hemoglobin of 11, hematocrit of 35, platelet count 359. EKG was reviewed, underlying atrial flutter with a paced rhythm, rate control. ASSESSMENT AND PLAN: 1. Acute on chronic diastolic heart failure. Most recent echocardiogram was done earlier this year in August. She had an ejection fraction of 50-55% with underlying atrial fibrillation, so could not report level of diastolic dysfunction. Much better after IV diuresis. We would continue for at [facility] one more day. Her creatinine also has dropped with this. Her symptoms are much better as well af ter diuresing some. 2. Chest pain: Likely related to her heart failure, much better after diuresis. She did get some n itroglycerin patch as well. Talking with her, she does not wish to have any invasive interventions. I offered her a heart catheterization and she told me that she would rather just have medicines and pills and be left alone. No invasive studies. Plan for now. 3. Atrial flutter/atrial fibrillation: Continue Eliquis low dose. Thank you for letting us to participate in the care of your patient. Dr. Soto, her primary Cardiol ogy will follow up in the morning.
[2018-03-15] MEDS: traZODone HCl 50 MG TAB PO SCH (20:14)
[2018-03-15] MEDS: Tamsulosin HCl 0.4 MG CAP PO SCH (20:14)
[2018-03-15] MEDS: Docusate 100 MG CAP PO SCH (20:15)
[2018-03-15] MEDS: Apixaban 2.5 MG TAB PO SCH (20:21)
[2018-03-15] MEDS ORDERED: Famotidine 20 MG TAB PO SCH ×2 (21:00)
[2018-03-15] MEDS ORDERED: Apixaban 5 MG TAB PO SCH (21:00)
[2018-03-16] MEDS: HYDROcodone/Acetaminophen 10/325 mg Tablet PO PRN ×4 (03:12→21:05)
[2018-03-16] MEDS: Furosemide 20 MG/2 ML VIAL SLOW IVP SCH ×2 (05:44→13:16)
[2018-03-16] MEDS: Levothyroxine Sodium 112 MCG TAB PO SCH (05:44)
[2018-03-16] MEDS: Levothyroxine Sodium 25 MCG TAB PO SCH (05:44)
[2018-03-16] MEDS ORDERED: Levothyroxine Sodium 112 MCG TAB PO SCH (06:00)
[2018-03-16 06:26] LABS: Anion Gap 19 mmol/L (10-20); BUN (Urea Nitrogen) 26 mg/dL (9.8-20.1); Calc. Creatinine Clearance 18 mL/min (70-130); Carbon Dioxide 21 mmol/L (23-31); Chloride 99 mmol/L (98-107); Estimated GFR-MDRD 26; Glucose 90 mg/dL (83-110); Potassium 3.9 mmol/L (3.5-5.1); Sodium 135 mmol/L (136-145)
[2018-03-16] MEDS: ALPRAZolam 0.25 MG TAB PO SCH (07:59)
[2018-03-16] MEDS: Docusate 100 MG CAP PO SCH ×2 (07:59→21:03)
[2018-03-16] MEDS: Loratadine 10 MG TAB PO SCH (08:00)
[2018-03-16] MEDS: Saccharomyces boulardii 250 MG CAP PO SCH (08:00)
[2018-03-16] MEDS: Vancomycin HCl 25 MG/ML Oral PO SCH ×4 (08:00→21:06)
[2018-03-16] MEDS: TROSPIUM 20 MG TABLET PO SCH (08:00)
[2018-03-16] MEDS: Apixaban 2.5 MG TAB PO SCH ×2 (08:00→21:03)
[2018-03-16] MEDS: Multivit, Therapeutic 1 TAB PO SCH (08:00)
[2018-03-16] MEDS: Ferrous Sulfate 325 MG TAB PO SCH (08:00)
[2018-03-16] MEDS ORDERED: Aspirin 81 mg Enteric Coated Tablet PO SCH ×2 (09:00)
--- NOTE | 2018-03-16 15:34 | PRG ---
DATE OF SERVICE: SUBJECTIVE: Ms. Thapa feels much better today. She reports that she had a very good urine output yesterday and is feeling much better. PHYSICAL EXAMINATION: VITAL SIGNS: Her blood pressure is 144/75, pulse 80, it is paced. LUNGS: Clear. CARDIAC: Normal S1 and normal S2. ABDOMEN: Soft, nontender. EXTREMITIES: No edema. ASSESSMENT: 1. Atrial tachycardia, rate controlled, status post AV junction ablation. 2. Previous pacemaker insertion. 3. Diastolic heart failure. 4. History of anemia, now stable. 5. Negative cardiac enzymes. 6. Markedly increased BNP. 7. History of recurrent anemia. PLAN: 1. She has been taken off the diltiazem and that is likely aggravating the diastolic heart failure. 2. Apixaban 2.5 mg twice a day in view of age, weight, and renal insufficiency. 3. Stop aspirin in view of recurrent anemia. 4. Furosemide 20 mg twice a day. 5. Potassium 10 mEq twice a day. 6. Pepcid 20 mg twice a day. 7. Iron. 8. Okay with me to be release home tomorrow if stable, we would watch her overnight. She was just t aken off the diltiazem today to make sure the heart rate is controlled. If the heart rate is control led, can go back to her previous location tomorrow morning.
[2018-03-16] MEDS: Potassium Chloride 10 MEQ TAB PO SCH (16:21)
--- NOTE | 2018-03-16 20:51 | PDOC.PN ---
- Subjective Encounter Start Date: 03/16/18 Encounter Start Time: 10:30 Patient seen and examined for CHF flare. No new complaints. No overnight events - Objective Resuscitation Status: Resuscitation Status FULL:Full Resuscitation MAR Reviewed: Yes Vital Signs & Weight: Vital Signs (12 hours) Temp Pulse Resp BP BP Pulse Ox 03/16/18 19:13 98.3 F 83 20 109/55 L 99 03/16/18 16:22 141/65 H 03/16/18 15:26 98.1 F 84 16 177/90 H 96 03/16/18 12:13 95 03/16/18 11:30 98.3 F 80 24 H 144/75 H 100 Weight Weight 112 lb I&O: 03/15/18 03/16/18 03/17/18 06:59 06:59 06:59 Intake Total 1080 750 Output Total 1750 900 Balance -670 -150 Result Diagrams: 03/17/18 03:57 03/17/18 03:57 EKG Reviewed by me: Yes (Tele paced) Phys Exam - Physical Examination Constitutional: NAD Respiratory: no wheezing, no rhonchi Scat rales at bases, No accessory muscle use Cardiovascular: RRR, no rub no heaves/pulsations Gastrointestinal: soft, non-tender, no distention, positive bowel sounds Musculoskeletal: edema present (improving) Neurological: non-focal, normal sensation, moves all 4 limbs Psychiatric: A&O x 3 Dx/Plan - Plan IMPRESSION/PLAN: 1. Chest discomfort - torponins negative. ASA dced per Cardiology. 2. Acute on chronic diastolic heart failure exacerbation. Will change Lasix PO. Echo pending. 3. History of atrial fibrillation and deep venous thrombosis on chronic anticoagulation. Cont Eliquis. Cardizem dced per Cardiology. Monitor for RVR 4. Tachybrady syndrome, status post dual chamber pacemaker placement in 2017. 5. Chronic kidney disease stage 3. Will avoid Nephrotoxic agents 6. Hypertension. Cont to monitor. 7. Chronic obstructive pulmonary disease. 8. Physical deconditioning. 9. Osteoporosis. 10. Chronic anemia. 11. Mild cognitive deficits. 12. Hypothyroidism. Cont Levothyroxine. 13. Recent Clostridial difficile infection. Cont PO Vancomycin. Review of Systems - Review of Systems Respiratory: SOB with Excertion. negative: Cough, Dry, Shortness of Breath, Hemoptysis, Pleuritic Pain, Sputum, Wheezing Cardiovascular: negative: chest pain, palpitations, orthopnea, paroxysmal nocturnal dyspnea, edema, light headedness, other Gastrointestinal: negative: Nausea, Vomiting, Abdominal Pain, Diarrhea, Constipation, Melena, Hematochezia, Other - Medications/Allergies Allergies/Adverse Reactions: Allergies Allergy/AdvReac Type Severity Reaction Status Date / Time No Known Allergies Allergy Verified 02/16/18 19:43 Medications: Current Medications Acetaminophen (Tylenol) 650 mg PO Q4H PRN PRN Reason: Headache/Fever or Pain Last Admin: 03/15/18 23:54 Dose: 650 mg Hydrocodone Bitart/Acetaminophen ([place] 10/325) 1 tab PO Q6H PRN PRN Reason: Moderate Pain (4-6) Last Admin: 03/16/18 14:58 Dose: 1 tab Albuterol/Ipratropium (Duoneb) 3 ml NEB QID PRN PRN Reason: Dyspnea/Wheezing/SOB Last Admin: 03/16/18 07:30 Dose: 3 ml Alprazolam (Xanax) 0.25 mg PO DAILY ON LICENSE OF [facility] Last Admin: 03/16/18 07:59 Dose: 0.25 mg Apixaban (Eliquis) 2.5 mg PO BID ON LICENSE OF [facility] Last Admin: 03/16/18 08:00 Dose: 2.5 mg Calcium Carbonate (Tums) 1,000 mg PO Q4H PRN PRN Reason: Heartburn or Indigestion Clonidine (Catapres) 0.1 mg PO Q4H PRN PRN Reason: SBP > 180 Last Admin: 03/16/18 16:22 Dose: 0.1 mg Docusate Sodium (Colace) 100 mg PO BID ON LICENSE OF [facility] Last Admin: 03/16/18 07:59 Dose: 100 mg Famotidine (Pepcid) 20 mg PO BID ON LICENSE OF [facility] Ferrous Sulfate (Feosol) 325 mg PO DAILY ON LICENSE OF [facility] Last Admin: 03/16/18 08:00 Dose: 325 mg Furosemide (Lasix) 40 mg PO 0900,1400 ON LICENSE OF [facility] Levothyroxine Sodium (Synthroid) 112 mcg PO 0600 ON LICENSE OF [facility] Last Admin: 03/16/18 05:44 Dose: 112 mcg Levothyroxine Sodium (Synthroid) 25 mcg PO 0600 ON LICENSE OF [facility] Last Admin: 03/16/18 05:44 Dose: 25 mcg Loratadine (Claritin) 10 mg PO DAILY ON LICENSE OF [facility] Last Admin: 03/16/18 08:00 Dose: 10 mg Multivitamins (Theragran) 1 tab PO DAILY ON LICENSE OF [facility] Last Admin: 03/16/18 08:00 Dose: 1 tab Nitroglycerin (Nitrostat) 0.4 mg PO Q5MIN PRN PRN Reason: Chest Pain Last Admin: 03/16/18 07:03 Dose: 0.4 mg Ondansetron HCl (Zofran Odt) 4 mg PO Q6H PRN PRN Reason: Nausea/Vomiting Ondansetron HCl (Zofran) 4 mg IVP Q6H PRN PRN Reason: Nausea/Vomiting Potassium Chloride (Klor-Con 10) 10 meq PO BID-[facility] Last Admin: 03/16/18 16:21 Dose: 10 meq Saccharomyces Boulardii (Florastor) 250 mg PO DAILY ON LICENSE OF [facility] Last Admin: 03/16/18 08:00 Dose: 250 mg Senna (Senokot) 2 tab PO HSPRN PRN PRN Reason: Constipation Sodium Chloride (Flush - Normal Saline) 10 ml IVF PRN PRN PRN Reason: Saline Flush Tamsulosin HCl (Flomax) 0.[address] [facility] Last Admin: 03/15/18 20:14 Dose: 0.4 mg Trazodone HCl (Desyrel) [address] [facility] Last Admin: 03/15/18 20:14 Dose: 50 mg Trospium (Trospium) 20 mg PO DAILY ON LICENSE OF [facility] Last Admin: 03/16/18 08:00 Dose: 20 mg Vancomycin HCl (First Vancomycin) 125 mg PO QID ON LICENSE OF [facility] Last Admin: 03/16/18 16:22 Dose: 125 mg
[2018-03-16] MEDS: Famotidine 20 MG TAB PO SCH (21:04)
[2018-03-16] MEDS: traZODone HCl 50 MG TAB PO SCH (21:04)
[2018-03-16] MEDS: Tamsulosin HCl 0.4 MG CAP PO SCH (21:04)
[2018-03-17] MEDS: HYDROcodone/Acetaminophen 10/325 mg Tablet PO PRN ×3 (03:00→14:55)
[2018-03-17 04:30] LABS: Hemoglobin 11.3 g/dL (12.0-16.0); Platelet Count 283 thou/uL (130-400)
[2018-03-17 04:51] LABS: Anion Gap 16 mmol/L (10-20); BUN (Urea Nitrogen) 33 mg/dL (9.8-20.1); Calc. Creatinine Clearance 18 mL/min (70-130); Calcium 8.8 mg/dL (7.8-10.44); Carbon Dioxide 24 mmol/L (23-31); Chloride 99 mmol/L (98-107); Estimated GFR-MDRD 26; Glucose 113 mg/dL (83-110); Potassium 4.1 mmol/L (3.5-5.1); Sodium 135 mmol/L (136-145)
[2018-03-17] MEDS: Levothyroxine Sodium 112 MCG TAB PO SCH (06:02)
[2018-03-17] MEDS: Levothyroxine Sodium 25 MCG TAB PO SCH (06:02)
[2018-03-17] MEDS: ALPRAZolam 0.25 MG TAB PO SCH (06:25)
[2018-03-17] MEDS: Saccharomyces boulardii 250 MG CAP PO SCH (09:23)
[2018-03-17] MEDS: Loratadine 10 MG TAB PO SCH (09:23)
[2018-03-17] MEDS: Ferrous Sulfate 325 MG TAB PO SCH (09:23)
[2018-03-17] MEDS: Multivit, Therapeutic 1 TAB PO SCH (09:23)
[2018-03-17] MEDS: Famotidine 20 MG TAB PO SCH (09:23)
[2018-03-17] MEDS: Potassium Chloride 10 MEQ TAB PO SCH (09:23)
[2018-03-17] MEDS: Vancomycin HCl 25 MG/ML Oral PO SCH ×2 (09:24→13:39)
[2018-03-17] MEDS: Furosemide 40 MG TAB PO SCH ×2 (09:24→13:39)
[2018-03-17] MEDS: Docusate 100 MG CAP PO SCH (09:24)
[2018-03-17] MEDS: TROSPIUM 20 MG TABLET PO SCH (09:24)
[2018-03-17] MEDS: Apixaban 2.5 MG TAB PO SCH (10:41)
--- NOTE | 2018-03-17 11:31 | PDOC.PN ---
- Subjective Encounter Start Date: 03/17/18 Encounter Start Time: 09:00 Patient seen and examined for CHF/CP. Feels better. No new complaints. No overnight events - Objective Resuscitation Status: Resuscitation Status FULL:Full Resuscitation MAR Reviewed: Yes Vital Signs & Weight: Vital Signs (12 hours) Temp Pulse Resp BP BP BP Pulse Ox 03/17/18 07:39 98.4 F 84 20 128/71 100 03/17/18 06:15 78 17 121/81 100 03/17/18 04:00 98.5 F 81 21 H 98/57 L 98 03/16/18 23:35 98.0 F 81 20 102/61 100 Weight Weight 106 lb 3 oz I&O: 03/16/18 03/17/18 03/18/18 06:59 06:59 06:59 Intake Total 1080 1110 Output Total 1750 1375 Balance -670 -265 Result Diagrams: 03/17/18 03:57 03/17/18 03:57 EKG Reviewed by me: Yes (Tele SR) Phys Exam - Physical Examination Constitutional: NAD Respiratory: no wheezing, no rhonchi Cardiovascular: RRR, no rub Gastrointestinal: soft, non-tender, positive bowel sounds Musculoskeletal: no edema Neurological: moves all 4 limbs Dx/Plan - Plan IMPRESSION/PLAN: 1. Chest discomfort - torponins negative. ASA dced per Cardiology. No CP. 2. Acute on chronic diastolic heart failure exacerbation. improving. Cont PO Lasix with Potassium. Echo still pending. 3. History of atrial tachycardia s/p ablation and deep venous thrombosis on chronic anticoagulation. Cont Eliquis. Cardizem dced per Cardiology. 4. Tachybrady syndrome, status post dual chamber pacemaker placement in 2017. 5. Chronic kidney disease stage 3. Will avoid Nephrotoxic agents 6. Hypertension. controlled. Cont to monitor. 7. Chronic obstructive pulmonary disease. 8. Physical deconditioning. 9. Osteoporosis. 10. Chronic anemia. 11. Mild cognitive deficits. 12. Hypothyroidism. Cont Levothyroxine. 13. Recent Clostridial difficile infection. Cont PO Vancomycin. 14. Chronic pain syndrome/Chronic Abdominal pain. Disposition - Assisted living once cleared by Cardiology. Review of Systems - Review of Systems Respiratory: negative: Cough, Dry, Shortness of Breath, Hemoptysis, SOB with Excertion, Pleuritic Pain, Sputum, Wheezing Cardiovascular: negative: chest pain, palpitations, orthopnea, paroxysmal nocturnal dyspnea, edema, light headedness, other - Medications/Allergies Allergies/Adverse Reactions: Allergies Allergy/AdvReac Type Severity Reaction Status Date / Time No Known Allergies Allergy Verified 02/16/18 19:43 Medications: Current Medications Acetaminophen (Tylenol) 650 mg PO Q4H PRN PRN Reason: Headache/Fever or Pain Last Admin: 03/15/18 23:54 Dose: 650 mg Hydrocodone Bitart/Acetaminophen ([place] 10/325) 1 tab PO Q6H PRN PRN Reason: Moderate Pain (4-6) Last Admin: 03/17/18 09:24 Dose: 1 tab Albuterol/Ipratropium (Duoneb) 3 ml NEB QID PRN PRN Reason: Dyspnea/Wheezing/SOB Last Admin: 03/16/18 07:30 Dose: 3 ml Alprazolam (Xanax) 0.25 mg PO DAILY [facility] Last Admin: 03/17/18 06:25 Dose: 0.25 mg Apixaban (Eliquis) 2.5 mg PO BID [facility] Last Admin: 03/17/18 10:41 Dose: 2.5 mg Calcium Carbonate (Tums) 1,000 mg PO Q4H PRN PRN Reason: Heartburn or Indigestion Clonidine (Catapres) 0.1 mg PO Q4H PRN PRN Reason: SBP > 180 Last Admin: 03/16/18 16:22 Dose: 0.1 mg Docusate Sodium (Colace) 100 mg PO BID [facility] Last Admin: 03/17/18 09:24 Dose: Not Given Famotidine (Pepcid) 20 mg PO BID [facility] Last Admin: 03/17/18 09:23 Dose: 20 mg Ferrous Sulfate (Feosol) 325 mg PO DAILY [facility] Last Admin: 03/17/18 09:23 Dose: 325 mg Furosemide (Lasix) 40 mg PO 0900,1400 [facility] Last Admin: 03/17/18 09:24 Dose: 40 mg Levothyroxine Sodium (Synthroid) 112 mcg PO 0600 [facility] Last Admin: 03/17/18 06:02 Dose: 112 mcg Levothyroxine Sodium (Synthroid) 25 mcg PO 0600 [facility] Last Admin: 03/17/18 06:02 Dose: 25 mcg Loratadine (Claritin) 10 mg PO DAILY [facility] Last Admin: 03/17/18 09:23 Dose: 10 mg Multivitamins (Theragran) 1 tab PO DAILY [facility] Last Admin: 03/17/18 09:23 Dose: 1 tab Nitroglycerin (Nitrostat) 0.4 mg PO Q5MIN PRN PRN Reason: Chest Pain Last Admin: 03/16/18 07:03 Dose: 0.4 mg Ondansetron HCl (Zofran Odt) 4 mg PO Q6H PRN PRN Reason: Nausea/Vomiting Ondansetron HCl (Zofran) 4 mg IVP Q6H PRN PRN Reason: Nausea/Vomiting Potassium Chloride (Klor-Con 10) 10 meq PO BID-[facility] Last Admin: 03/17/18 09:23 Dose: 10 meq Saccharomyces Boulardii (Florastor) 250 mg PO DAILY [facility] Last Admin: 03/17/18 09:23 Dose: 250 mg Senna (Senokot) 2 tab PO HSPRN PRN PRN Reason: Constipation Sodium Chloride (Flush - Normal Saline) 10 ml IVF PRN PRN PRN Reason: Saline Flush Tamsulosin HCl (Flomax) 0.4 mg PO [facility] Last Admin: 03/16/18 21:04 Dose: 0.4 mg Trazodone HCl (Desyrel) 50 mg PO [facility] Last Admin: 03/16/18 21:04 Dose: 50 mg Trospium (Trospium) 20 mg PO DAILY [facility] Last Admin: 03/17/18 09:24 Dose: 20 mg Vancomycin HCl (First Vancomycin) 125 mg PO QID [facility] Last Admin: 03/17/18 09:24 Dose: 125 mg
[2018-03-17 12:06] VITALS: TEMP 97.4
[2018-03-17 14:41] VITALS: BP 126/65
--- NOTE | 2018-03-17 15:48 | DIS ---
DATE OF DISCHARGE: 03/17/2018 DISCHARGE DISPOSITION: Home. FOLLOWUP: 1. With 2D echocardiogram. 2. Follow up with primary care physician, Dr. Devi Cardenas in 1 week. 3. Follow up with Cardiology, Dr. Soto next week. ALLERGIES: No known drug allergies. DISCHARGE MEDICATIONS: 1. Lasix 20 mg twice a day. 2. Potassium chloride 10 mEq twice a day. All other home medications were resumed. Please note that Cardizem was discontinued per Cardiology. The patient was seen and examined on the day of discharge. Please refer to the progress notes for fu rther details. BRIEF HOSPITAL COURSE: The patient is an 87-year-old female with atrial fibrillation; hypertension; and DVT, currently on anticoagulation, who presented to the hospital with chest discomfort. Please r efer to the history and physical dated 03/15/2018 for further details. The patient was admitted to the hospital with a diagnosis of chest discomfort along with shortness of breath consistent with acute on chronic diastolic heart failure exacerbation. She showed good impro vement with diuretics. Her troponins were negative. The patient was evaluated by Cardiology, Dr. Yesenia lui. She has lost approximately 6 pounds during this hospital stay. She is on room air and feels s ymptomatically much better. Lasix dose has been changed to 20 mg twice a day per Dr. Soto. Echoca rdiogram was ordered by Dr. Soto. This was done this morning. The patient was advised to call Dr. Soto's office for echocardiogram report on Monday. The patient appears stable for discharge. FINAL DIAGNOSES: 1. Chest discomfort, acute coronary syndrome ruled out. Troponins remain negative. 2. Acute on chronic diastolic heart failure exacerbation, improved. 3. History of atrial tachycardia, status post ablation. 4. History of deep venous thrombosis, on anticoagulation. 5. Tachybrady syndrome, status post dual chamber pacemaker placement. 6. Chronic kidney disease, stage 3. 7. Hypertension. 8. Chronic obstructive pulmonary disease. 9. Physical deconditioning. 10. Osteoporosis. 11. Chronic anemia. 12. Mild cognitive deficit. 13. Hypothyroidism. 14. Recent Clostridium difficile infection, on oral vancomycin. 15. Chronic pain syndrome/chronic abdominal pain, on hydrocodone. Plan of care was discussed with the patient in detail and she stated understanding.
--- NOTE | 2018-03-18 23:14 | EKG ---
Test Reason : Blood Pressure : / mmHG Vent. Rate : 083 BPM Atrial Rate : 092 BPM P-R Int : 000 ms QRS Dur : 144 ms QT Int : 454 ms P-R-T Axes : 000 -82 069 degrees QTc Int : 533 ms Electronic ventricular pacemaker When compared with ECG of 15-MAR-2018 06:37, (Unconfirmed) No significant change was found Confirmed by Quincy ANDRADE ([id number]) on 03/18/2018 11:14:02 PM Referred By: MARISOL Confirmed By:Quincy ANDRADE
== END 2018-03-17 15:22 | disposition home or self-care (01) ==
LOC: ERS 06:28 → 2SW 11:42
PROVIDERS: ADMIT Internal Medicine; ATTEND Internal Medicine
DX: R07.89 Other chest pain (principal); K21.9 Gastro-esophageal reflux disease without esophagitis; E03.9 Hypothyroidism, unspecified; J44.9 Chronic obstructive pulmonary disease, unspecified; M81.0 Age-related osteoporosis without current pathological fracture; I13.0 Hypertensive heart and chronic kidney disease with heart failure and stage 1 through stage 4 chronic kidney disease, or unspecified chronic kidney disease; N18.3 Chronic kidney disease, stage 3 (moderate); I50.33 Acute on chronic diastolic (congestive) heart failure; D63.1 Anemia in chronic kidney disease; I48.2 Chronic atrial fibrillation; G89.4 Chronic pain syndrome; B96.89 Other specified bacterial agents as the cause of diseases classified elsewhere; Z86.718 Personal history of other venous thrombosis and embolism; Z87.891 Personal history of nicotine dependence; Z79.01 Long term (current) use of anticoagulants; Z79.899 Other long term (current) drug therapy; Z95.0 Presence of cardiac pacemaker
CPT/HCPCS: 71045; 80048 ×2; 80053; 82550; 82553; 83690; 83735 ×3; 83880; 84100; 84484 ×2; 85014; 85018; 85025; 85049; 93005 ×2; 93306; 93798 ×3; 94640; 94760 ×3; 96374; 96376; 99285; G0378 ×2; 36415; 93010; J1940; J7620

== ENCOUNTER 2018-04-04 09:51 | Emergency (ER) | payer MEDICARE ==
[2018-04-04 10:20] LABS: #Eosinphils 0.1 thou/uL (0.0-0.7); #Lymphocytes 1.7 thou/uL (1.20-3.40); #Monocytes 0.5 thou/uL (0.11-0.59); %Basophils 0.8 % (0.0-1.0); %Eosinophils 1.6 % (0.0-10.0); %Lymphocytes 32.2 % (21.0-51.0); %Monocytes 9.5 % (0.0-10.0); %Neutrophils 55.9 % (42.0-75.0); Hemoglobin 12.2 g/dL (12.0-16.0); Mean Corpuscular HGB CONC 32.7 g/dL (32.0-36.0); Mean Corpuscular Hemoglobin 34.1 pg (27.0-31.0); Mean Platelet Volume 6.9 fL (7.4-10.4); Platelet Count 278 thou/uL (130-400); RBC Distribution Width 18.1 % (11.5-14.5); Red Blood Cell (RBC) Count 3.58 mill/uL (4.20-5.40); White Blood Cell (WBC) Count 5.4 thou/uL (4.8-10.8)
--- NOTE | 2018-04-04 11:23 | CT ---
ABDOMEN CT WITHOUT CONTRAST PELVIC CT WITHOUT CONTRAST: Date: 04/04/18 COMPARISON: 02/11/18, 02/21/18. HISTORY: Left flank pain. TECHNIQUE: Abdomen and pelvis CT performed without IV or oral contrast. Coronal reformatted images are submitted . FINDINGS: ABDOMEN CT: Incompletely evaluated 5.0 mm nodule in the middle lobe. Heart is enlarged. No significant pericardia l fluid. The descending thoracic aorta and abdominal aorta have an overall normal caliber. No periaor tic fat stranding. There is atherosclerosis. Limited evaluation of the solid organs. Grossly, no solid organ abnormality. Unremarkable gallbladder . No gastrohepatic, retrocrural, or periportal lymphadenopathy. No mesenteric mass, lymphadenopathy, free air, or free fluid. Stable nonobstructing calcification in the right renal pelvis measuring 6.0 mm. Stable cortical based calcification in the right kidney measuring 0.8 x 0.6 cm. No evidence of right-sided obstructive uro aurelio. Stable hyperdensity emanating from the left renal cortex compatible with a complex or hemorrhagic cys t. Punctate nonobstructing calculus in the lower pole of the left kidney measuring 1-2 mm. No evidenc e of left-sided obstructive uropathy. Left ureter is unremarkable. No obvious ureteral calculi. Note, distal ureters cannot be assessed due to beam-attenuation artifact. Limited evaluation of the alimentary canal by lack of oral contrast. No evidence of bowel obstruction . Ileocecal junction is normal. Scattered fecal material in nondistended, nondilated colon. Occasiona l diverticulum. No diverticulitis. PELVIC CT: Limited evaluation by beam attenuation artifact. No pelvic mass, lymphadenopathy, free air, or free f luid. Unremarkable urinary bladder. Stable compression fractures involving the distal thoracic and upper lumbar spine. IMPRESSION: 1. Nonobstructing calcification in the left and right kidney. 2. Bilaterally, no evidence of obstructive uropathy. POS: [facility]
[2018-04-04 11:58] LABS: ALT (SGPT) 16 U/L (8-55); AST (SGOT) 24 U/L (5-34); Albumin 4.3 g/dL (3.4-4.8); Alkaline Phosphatase 96 U/L (40-150); Anion Gap 17 mmol/L (10-20); BUN (Urea Nitrogen) 65 mg/dL (9.8-20.1); Bilirubin, Total 0.4 mg/dL (0.2-1.2); Calc. Creatinine Clearance 0 mL/min (70-130); Calcium 9.3 mg/dL (7.8-10.44); Carbon Dioxide 16 mmol/L (23-31); Chloride 109 mmol/L (98-107); Estimated GFR-MDRD 24; Globulin 2.5 g/dL (2.4-3.5); Glucose 103 mg/dL (83-110); Potassium 4.3 mmol/L (3.5-5.1); Protein, Total 6.8 g/dL (6.0-8.3); Sodium 138 mmol/L (136-145)
[2018-04-04 12:10] LABS: Bilirubin Negative (Negative); Blood, Urine Small (Negative); Clarity CLOUDY (Clear); Glucose, Urine (Dipstick) Negative (Negative); Leukocyte Large (Negative); Nitrite Negative (Negative); Protein, Urine (Dipstick) 30 mg/dL (Neg-Trace); Specific Gravity, Urine 1.012 (1.002-1.036); Urobilinogen 0.2 mg/dL (0.2-1.0)
[2018-04-04 12:13] LABS: Bacteria/HPF 1+ HPF (None Seen); Hyaline Casts/LPF 0-3 HYALINE CAST LPF (0-3 Hyaline); Pathc Cast-AUWi Flag 0.14 (0-2.49); Squamous Epithelial None Seen HPF (0-3)
[2018-04-04] MEDS ORDERED: Ketorolac Tromethamine 30 MG/ML VIAL ONE (12:37)
[2018-04-04] MEDS ORDERED: cefTRIAXone\\ROCEPHIN 1 GM VIAL ONE (12:37)
[2018-04-04] MEDS ORDERED: Nitrofurantoin Macrocrystal 50 MG CAP PO SCH (12:45)
== END 2018-04-04 13:30 | disposition home or self-care (01) ==
LOC: ERS 09:51
DX: N12 Tubulo-interstitial nephritis, not specified as acute or chronic (principal); E03.9 Hypothyroidism, unspecified; I10 Essential (primary) hypertension; D64.9 Anemia, unspecified; M81.0 Age-related osteoporosis without current pathological fracture; K21.9 Gastro-esophageal reflux disease without esophagitis; F41.9 Anxiety disorder, unspecified; F32.9 Major depressive disorder, single episode, unspecified; J44.9 Chronic obstructive pulmonary disease, unspecified; Z79.899 Other long term (current) drug therapy
CPT/HCPCS: 36415; 74176; 80053; 81003; 81015; 85025; 93005; 96361; 96365; 96375; J0696; J1885; J2270

== ENCOUNTER 2018-04-18 07:04 | Emergency (ER) | payer MEDICARE ==
[2018-04-18 08:18] LABS: #Eosinphils 0.1 thou/uL (0.0-0.7); #Lymphocytes 1.6 thou/uL (1.20-3.40); #Monocytes 0.5 thou/uL (0.11-0.59); #Neutrophils 2.4 thou/uL (1.40-6.50); %Basophils 0.7 % (0.0-1.0); %Eosinophils 1.6 % (0.0-10.0); %Lymphocytes 34.8 % (21.0-51.0); %Monocytes 9.9 % (0.0-10.0); Hemoglobin 12.4 g/dL (12.0-16.0); Mean Corpuscular HGB CONC 32.7 g/dL (32.0-36.0); Mean Corpuscular Hemoglobin 34.5 pg (27.0-31.0); Mean Platelet Volume 7.4 fL (7.4-10.4); Platelet Count 312 thou/uL (130-400); RBC Distribution Width 17.5 % (11.5-14.5); Red Blood Cell (RBC) Count 3.58 mill/uL (4.20-5.40); White Blood Cell (WBC) Count 4.6 thou/uL (4.8-10.8)
[2018-04-18 08:28] LABS: Anion Gap 18 mmol/L (10-20); BUN (Urea Nitrogen) 39 mg/dL (9.8-20.1); Calc. Creatinine Clearance 0 mL/min (70-130); Calcium 9.8 mg/dL (7.8-10.44); Carbon Dioxide 19 mmol/L (23-31); Chloride 106 mmol/L (98-107); Estimated GFR-MDRD 22; Glucose 114 mg/dL (83-110); Potassium 4.6 mmol/L (3.5-5.1); Sodium 138 mmol/L (136-145)
[2018-04-18 09:12] LABS: Bilirubin Negative (Negative); Blood, Urine Moderate (Negative); Clarity TURBID (Clear); Glucose, Urine (Dipstick) Negative (Negative); Leukocyte Large (Negative); Nitrite Negative (Negative); Protein, Urine (Dipstick) 100 mg/dL (Neg-Trace); Specific Gravity, Urine 1.024 (1.002-1.036); Urobilinogen 0.2 mg/dL (0.2-1.0); pH, Urine 5.5 (5.0-9.0)
[2018-04-18 09:14] LABS: Squamous Epithelial 0-3 HPF (0-3)
[2018-04-18 09:17] LABS: Pathc Cast-AUWi Flag 3.14 (0-2.49); Yeast-AUWi Flag 80.2 (0-25.0)
[2018-04-18 09:29] LABS: Bacteria/HPF 2+ HPF (None Seen)
[2018-04-18 09:30] LABS: Hyaline Casts/LPF NONE SEEN LPF (0-3 Hyaline); Yeast-All Forms 1+ HPF (None Seen)
--- NOTE | 2018-04-18 09:38 | CT ---
CT OF THE ABDOMEN AND PELVIS WITHOUT CONTRAST: Comparison: 04-04-18 History: Left flank pain that has worsened over the last 1-2 days. Technique: Multiple contiguous axial images were obtained in a CT of the abdomen and pelvis without c ontrast. Coronal reformats were performed. FINDINGS: Stable calcifications are seen in the right kidney measuring up to 1 cm in size. No calcifications ar e seen in the left kidney or left ureter. There is cortical thinning of the left kidney. Evaluation o f the pelvis is limited secondary to the streak artifact from patient's bilateral hip prostheses. The patient is status post cholecystectomy. The liver, adrenal glands, spleen, and pancreas are unrem arkable. No free air, free fluid, or stranding changes are seen in the abdomen or pelvis. Visualized large and small bowel are unremarkable. Atherosclerotic calcifications are seen in the aor ta. No abdominal or pelvic lymphadenopathy are appreciated. The reproductive organs are not seen and the patient may be status post hysterectomy. Degenerative changes are seen in the spine. A calcified granuloma is seen in the right lung base. The visualized inferior thorax is otherwise unremarkable. IMPRESSION: 1. Stable right renal calcifications. 2. No evidence of acute intraabdominal/pelvic abnormality. POS: [facility]
[2018-04-18] MEDS ORDERED: HYDROcodone/Acetaminophen 5/325 mg Tablet ONE (10:06)
[2018-04-18] MEDS ORDERED: Cephalexin 250 MG CAP ONE (10:06)
[2018-04-18] MEDS ORDERED: Phenazopyridine HCl 97.5 MG TABLET PO SCH (10:30)
[2018-04-18] MEDS ORDERED: Phenazopyridine HCl 97.5 MG TABLET ONE (10:48)
== END 2018-04-18 10:52 | disposition home or self-care (01) ==
LOC: ERS 07:04
DX: N12 Tubulo-interstitial nephritis, not specified as acute or chronic (principal); J44.9 Chronic obstructive pulmonary disease, unspecified; E03.9 Hypothyroidism, unspecified; I10 Essential (primary) hypertension; D64.9 Anemia, unspecified; M81.0 Age-related osteoporosis without current pathological fracture; K21.9 Gastro-esophageal reflux disease without esophagitis; F41.9 Anxiety disorder, unspecified; F32.9 Major depressive disorder, single episode, unspecified; Z87.891 Personal history of nicotine dependence
CPT/HCPCS: 36415; 74176; 80048; 81003; 81015; 85025; 96372; J2270

== ENCOUNTER 2018-05-25 16:52 | Emergency (ER) | payer MEDICARE ==
[2018-05-25 17:21] LABS: #Basophils 0.1 thou/uL (0.0-0.2); #Eosinphils 0.2 thou/uL (0.0-0.7); #Lymphocytes 1.7 thou/uL (1.20-3.40); #Monocytes 0.4 thou/uL (0.11-0.59); #Neutrophils 2.2 thou/uL (1.40-6.50); %Basophils 1.2 % (0.0-1.0); %Eosinophils 3.4 % (0.0-10.0); %Lymphocytes 38.3 % (21.0-51.0); %Neutrophils 49.2 % (42.0-75.0); Hemoglobin 13.7 g/dL (12.0-16.0); Mean Corpuscular HGB CONC 32.3 g/dL (32.0-36.0); Mean Corpuscular Hemoglobin 33.5 pg (27.0-31.0); Mean Platelet Volume 7.6 fL (7.4-10.4); Platelet Count 264 thou/uL (130-400); RBC Distribution Width 14.1 % (11.5-14.5); Red Blood Cell (RBC) Count 4.09 mill/uL (4.20-5.40); White Blood Cell (WBC) Count 4.5 thou/uL (4.8-10.8)
[2018-05-25 17:40] LABS: ALT (SGPT) 29 U/L (8-55); AST (SGOT) 30 U/L (5-34); Albumin 4.4 g/dL (3.4-4.8); Alkaline Phosphatase 96 U/L (40-150); Anion Gap 16 mmol/L (10-20); BUN (Urea Nitrogen) 42 mg/dL (9.8-20.1); Bilirubin, Total 0.2 mg/dL (0.2-1.2); Calc. Creatinine Clearance 0 mL/min (70-130); Carbon Dioxide 22 mmol/L (23-31); Chloride 104 mmol/L (98-107); Estimated GFR-MDRD 21; Globulin 2.8 g/dL (2.4-3.5); Glucose 165 mg/dL (83-110); Potassium 4.2 mmol/L (3.5-5.1); Protein, Total 7.2 g/dL (6.0-8.3); Sodium 138 mmol/L (136-145)
[2018-05-25] MEDS ORDERED: Morphine 4 MG/ML VIAL ONE ×2 (17:50→19:34)
--- NOTE | 2018-05-25 20:33 | CT ---
CT OF ABDOMEN AND PELVIS PERFORMED WITHOUT CONTRAST ENHANCEMENT: 05/25/18 HISTORY: Abdominal pain, onset two days ago. Patient has a history of kidney stones History of appendectomy, c holecystectomy and hysterectomy. COMPARISON: 04/18/18 study. The lung bases show some chronic appearing change. Some atelectatic changes are also present. The liver, spleen, and pancreas regions appear unremarkable given the limitations of a noncontrast st udy. The gallbladder has been removed. There is some intra and extrahepatic ductal dilatation which a ppears fairly similar to the previous examination and probably on the basis of cholecystectomy change . Right and left adrenal glands are normal. Right and left kidneys are not obstructed. The right sided renal calculi are similar to the previous study. There also appear to be some tiny punctate left george l calculi which are nonobstructing. Some hyperdense lesions involving the left kidney, stable, which are felt to be hemorrhagic cysts. There is dense atherosclerotic change of the aorta. There is no sig nificant periaortic or mesenteric adenopathy. No signs of bowel obstruction. CT OF PELVIS PERFORMED WITHOUT CONTRAST ENHANCEMENT: Artifact related to postoperative changes of the hips limits detail. I do not see any significant jayden nopathy, mass or free fluid. The bones are diffusely demineralized. There is multilevel osteoporotic type compression changes note d. There is old left inferior pubic ramus fracture. IMPRESSION: No acute abnormalities of the abdomen or pelvis. POS: [facility]
[2018-05-25 23:28] LABS: Bilirubin Negative (Negative); Blood, Urine Negative (Negative); Clarity CLOUDY (Clear); Glucose, Urine (Dipstick) Negative (Negative); Leukocyte Large (Negative); Nitrite Negative (Negative); Protein, Urine (Dipstick) Negative (Neg-Trace); Specific Gravity, Urine 1.018 (1.002-1.036); Urobilinogen 0.2 mg/dL (0.2-1.0); pH, Urine 5.5 (5.0-9.0)
[2018-05-25 23:31] LABS: Bacteria/HPF None Seen HPF (None Seen); Hyaline Casts/LPF 0-3 HYALINE CAST LPF (0-3 Hyaline); Pathc Cast-AUWi Flag 0.58 (0-2.49); RBC/HPF 0-3 HPF (0-3); Squamous Epithelial 0-3 HPF (0-3)
[2018-05-25 23:32] LABS: Yeast-AUWi Flag 25.4 (0-25.0)
[2018-05-25 23:39] LABS: Yeast-All Forms 1+ HPF (None Seen)
[2018-05-26] MEDS ORDERED: cefTRIAXone\\ROCEPHIN 1 GM VIAL ONE (00:10)
== END 2018-05-26 00:35 | disposition home or self-care (01) ==
LOC: ERS 16:52
DX: N12 Tubulo-interstitial nephritis, not specified as acute or chronic (principal); J44.9 Chronic obstructive pulmonary disease, unspecified; E03.9 Hypothyroidism, unspecified; I10 Essential (primary) hypertension; D64.9 Anemia, unspecified; M81.0 Age-related osteoporosis without current pathological fracture; K21.9 Gastro-esophageal reflux disease without esophagitis; F41.9 Anxiety disorder, unspecified; F32.9 Major depressive disorder, single episode, unspecified; F17.210 Nicotine dependence, cigarettes, uncomplicated; Z79.899 Other long term (current) drug therapy
CPT/HCPCS: 74176; 80053; 81003; 81015; 85025; 87086; 94760; 96372; 96374; 96376; J0696; J2270

== ENCOUNTER 2018-06-09 15:37 | Emergency (ER) | payer MEDICARE ==
[2018-06-09] MEDS ORDERED: Morphine 4 MG/ML VIAL ONE (16:12)
[2018-06-09] MEDS ORDERED: Ondansetron PF 4 MG/2 ML Vial ONE (16:13)
[2018-06-09 16:30] LABS: #Basophils 0.1 thou/uL (0.0-0.2); #Eosinphils 0.2 thou/uL (0.0-0.7); #Lymphocytes 1.3 thou/uL (1.20-3.40); #Monocytes 0.3 thou/uL (0.11-0.59); #Neutrophils 2.4 thou/uL (1.40-6.50); %Basophils 1.5 % (0.0-1.0); %Eosinophils 5.1 % (0.0-10.0); %Lymphocytes 30.5 % (21.0-51.0); %Monocytes 7.3 % (0.0-10.0); %Neutrophils 55.6 % (42.0-75.0); Hemoglobin 13.1 g/dL (12.0-16.0); Mean Corpuscular HGB CONC 31.9 g/dL (32.0-36.0); Mean Corpuscular Hemoglobin 33.3 pg (27.0-31.0); Mean Platelet Volume 7.2 fL (7.4-10.4); Platelet Count 269 thou/uL (130-400); RBC Distribution Width 13.6 % (11.5-14.5); Red Blood Cell (RBC) Count 3.92 mill/uL (4.20-5.40); White Blood Cell (WBC) Count 4.3 thou/uL (4.8-10.8)
--- NOTE | 2018-06-09 16:34 | RAD ---
CHEST ONE VIEW: 06/09/18 HISTORY: Syncope. COMPARISON: 03/15/18. FINDINGS: The cardiac silhouette is magnified and enlarged. Pulmonary vasculature is upper limits of normal. Me diastinum is midline with aortic calcification and a dual lead left subclavian cardiac electronic dev ice. Left base is now clear. No evidence of pneumothorax. IMPRESSION: Interval clearing of the left lung base. Atherosclerosis. Cardiomegaly. POS: [facility]
[2018-06-09 16:51] LABS: ALT (SGPT) 18 U/L (8-55); AST (SGOT) 27 U/L (5-34); Albumin 4.4 g/dL (3.4-4.8); Alkaline Phosphatase 97 U/L (40-150); Anion Gap 12 mmol/L (10-20); BUN (Urea Nitrogen) 40 mg/dL (9.8-20.1); Bilirubin, Total 0.2 mg/dL (0.2-1.2); CK (CPK) 42 U/L (29-168); Calc. Creatinine Clearance 0 mL/min (70-130); Calcium 9.7 mg/dL (7.8-10.44); Carbon Dioxide 29 mmol/L (23-31); Chloride 100 mmol/L (98-107); Estimated GFR-MDRD 19; Globulin 2.7 g/dL (2.4-3.5); Glucose 111 mg/dL (83-110); Lipase 24 U/L (8-78); Potassium 5.2 mmol/L (3.5-5.1); Protein, Total 7.1 g/dL (6.0-8.3); Sodium 136 mmol/L (136-145)
[2018-06-09 16:56] LABS: Troponin I Less than 0.010 ng/mL (< 0.028)
[2018-06-09] MEDS ORDERED: HYDROcodone/Acetaminophen 5/325 mg Tablet ONE (17:37)
[2018-06-09 17:44] LABS: Bilirubin Negative (Negative); Blood, Urine Negative (Negative); Clarity CLEAR (Clear); Glucose, Urine (Dipstick) Negative (Negative); Leukocyte Large (Negative); Nitrite Negative (Negative); Protein, Urine (Dipstick) Negative (Neg-Trace); Specific Gravity, Urine 1.009 (1.002-1.036); Urobilinogen 0.2 mg/dL (0.2-1.0)
[2018-06-09 17:46] LABS: Bacteria/HPF None Seen HPF (None Seen); Hyaline Casts/LPF 0-3 HYALINE CAST LPF (0-3 Hyaline); Pathc Cast-AUWi Flag 0.14 (0-2.49); Squamous Epithelial 0-3 HPF (0-3)
[2018-06-09 17:48] LABS: RBC/HPF 0-3 HPF (0-3)
[2018-06-09 17:49] LABS: Renal Epithelial None Seen HPF (0-3); Transitional Epithelial NONE SEEN HPF (0-3)
[2018-06-09] MEDS ORDERED: cefTRIAXone\\ROCEPHIN 1 GM in Sodium Chloride 0.9% 100 ML IVPB ONE (18:00)
[2018-06-09] MEDS ORDERED: cefTRIAXone\\ROCEPHIN 1 GM VIAL ONE (19:18)
== END 2018-06-09 20:41 | disposition home or self-care (01) ==
LOC: ERS 15:37
DX: N39.0 Urinary tract infection, site not specified (principal); J44.9 Chronic obstructive pulmonary disease, unspecified; E03.9 Hypothyroidism, unspecified; I10 Essential (primary) hypertension; D64.9 Anemia, unspecified; K21.9 Gastro-esophageal reflux disease without esophagitis; F41.9 Anxiety disorder, unspecified; F32.9 Major depressive disorder, single episode, unspecified; Z87.891 Personal history of nicotine dependence; Z79.899 Other long term (current) drug therapy
CPT/HCPCS: 71045; 80053; 81003; 81015; 82550; 82553; 83690; 84484; 85025; 87086; 93005; 96365; 96375; J0696; J2270; J2405

== ENCOUNTER 2018-06-19 09:49 | Outpatient (CLI) | payer MEDICARE ==
--- NOTE | 2018-06-19 12:08 | CT ---
ABDOMEN AND PELVIC CT SCAN WITHOUT IV CONTRAST: History: 87-year-old female with history of recurrent nephrolithiasis, N20.0, prior cholecystectomy, appendect kade, and hysterectomy. Comparison: 05-25-18 FINDINGS: Mild chronic linear and parenchymal changes, particularly in the left lower chest. Visualized liver, status post cholecystectomy, pancreas, spleen, and adrenal gland regions are unremarkable. Small kidn eys are noted bilaterally with bilateral renal calculi, more prominent on the right side, without kevin al hydronephrosis. Two small hemorrhagic cysts involving the lower pole of the left kidney. No overt acute obstruction. Scattered fecal material throughout the colon. The pelvis region is poorly seen because of extensive metal artifact from the right total hip and left hip metal screws. Essentially all of the lumbar and visualized thoracic vertebral bodies show vertical height loss with little barker ge from 05-25-18. IMPRESSION: Stable bilateral renal calculi without acute obstruction. Numerous other findings as above, stable . POS: [facility]
== END 2018-06-19 09:50 | disposition home or self-care (01) ==
LOC: BICCT 09:49
PROVIDERS: ATTEND Urology
DX: N20.0 Calculus of kidney (principal); R91.8 Other nonspecific abnormal finding of lung field; N28.1 Cyst of kidney, acquired; Z90.49 Acquired absence of other specified parts of digestive tract
CPT/HCPCS: 74176

== ENCOUNTER 2018-07-20 18:09 | Emergency (ER) | payer MEDICARE ==
[2018-07-20] MEDS ORDERED: Ondansetron PF 4 MG/2 ML Vial ONE (18:25)
[2018-07-20] MEDS ORDERED: Morphine 4 MG/ML VIAL ONE (18:26)
[2018-07-20 18:49] LABS: Hemoglobin 12.5 g/dL (12.0-16.0); Mean Corpuscular HGB CONC 32.9 g/dL (32.0-36.0); Mean Platelet Volume 7.1 fL (7.4-10.4); Platelet Count 284 thou/uL (130-400); RBC Distribution Width 12.4 % (11.5-14.5); Red Blood Cell (RBC) Count 3.56 mill/uL (4.20-5.40); White Blood Cell (WBC) Count 5.5 thou/uL (4.8-10.8)
[2018-07-20 19:04] LABS: ALT (SGPT) 14 U/L (8-55); AST (SGOT) 23 U/L (5-34); Alkaline Phosphatase 87 U/L (40-150); Anion Gap 16 mmol/L (10-20); BUN (Urea Nitrogen) 39 mg/dL (9.8-20.1); Bilirubin, Total 0.4 mg/dL (0.2-1.2); Calc. Creatinine Clearance 0 mL/min (70-130); Calcium 9.1 mg/dL (7.8-10.44); Carbon Dioxide 23 mmol/L (23-31); Chloride 103 mmol/L (98-107); Estimated GFR-MDRD 21; Globulin 2.5 g/dL (2.4-3.5); Glucose 142 mg/dL (83-110); Lipase 13 U/L (8-78); Potassium 4.6 mmol/L (3.5-5.1); Protein, Total 6.5 g/dL (6.0-8.3); Sodium 137 mmol/L (136-145)
[2018-07-20 19:08] LABS: Bilirubin Small (Negative); Blood, Urine Negative (Negative); Clarity CLOUDY (Clear); Glucose, Urine (Dipstick) Negative (Negative); Leukocyte Large (Negative); Nitrite Negative (Negative); Protein, Urine (Dipstick) Trace mg/dL (Neg-Trace); Specific Gravity, Urine 1.021 (1.002-1.036); Urobilinogen 0.2 mg/dL (0.2-1.0); pH, Urine 6.5 (5.0-9.0)
[2018-07-20 19:09] LABS: Bacteria/HPF None Seen HPF (None Seen); Hyaline Casts/LPF 4-6 HYALINE CAST LPF (0-3 Hyaline); Pathc Cast-AUWi Flag 1.01 (0-2.49); Squamous Epithelial None Seen HPF (0-3)
[2018-07-20 19:15] LABS: #Eosinphils 0.1 thou/uL (0.0-0.7); #Lymphocytes 0.9 thou/uL (1.20-3.40); #Monocytes 0.4 thou/uL (0.11-0.59); #Neutrophils 4.1 thou/uL (1.40-6.50); %Basophils 0.6 % (0.0-1.0); %Eosinophils 1.6 % (0.0-10.0); %Lymphocytes 15.6 % (21.0-51.0); %Monocytes 6.8 % (0.0-10.0); %Neutrophils 75.4 % (42.0-75.0); MDiff Complete? YES; Macrocytosis SLIGHT = 6-15 cells (100X) (0-5/hpf); PLT Morphology Comment Appears Adequate
[2018-07-20] MEDS ORDERED: cefTRIAXone\\ROCEPHIN 1 GM VIAL ONE (20:42)
--- NOTE | 2018-07-20 21:26 | CT ---
CT OF THE ABDOMEN AND PELVIS 07/20/18 PROVIDED CLINICAL HISTORY: Abdominal pain. FINDINGS: Comparison is made with the study dated 06/19/18. The visualized lung bases are free of significant opacity. The solid abdominal organs demonstrate a stable unenhanced CT appearance with exception of mild intra hepatic and extrahepatic biliary ductal dilatation. Changes of prior cholecystectomy are seen. Bilate ral nonobstructing renal calculi are redemonstrated. There is no bowel dilatation, inflammatory fat stranding, free fluid or free air apparent. Evaluation of the pelvis is limited due to extensive beam hardening artifact related to bilateral hip arthropla sties. Multiple calcifications in the pelvis appear to be vascular in nature with no definite uretera l calculus identified. The appendix is not distinctly identified. Conspicuous vascular calcification is noted involving the abdominal aorta and its branches. IMPRESSION: 1. Intrahepatic and extrahepatic biliary ductal dilation which could be on the basis of patient age and post cholecystectomy status. Correlate with laboratory values to exclude biliary obstructive change. 2. Otherwise stable exam. POS: [facility]
== END 2018-07-20 21:29 | disposition home or self-care (01) ==
LOC: ERS 18:09
DX: N39.0 Urinary tract infection, site not specified (principal); J44.9 Chronic obstructive pulmonary disease, unspecified; E03.9 Hypothyroidism, unspecified; I10 Essential (primary) hypertension; D64.9 Anemia, unspecified; K21.9 Gastro-esophageal reflux disease without esophagitis; F41.9 Anxiety disorder, unspecified; F32.9 Major depressive disorder, single episode, unspecified; Z87.891 Personal history of nicotine dependence; Z79.899 Other long term (current) drug therapy
CPT/HCPCS: 36415; 51701; 74176; 80053; 81003; 81015; 83690; 85025; 87086; 93005; 96361; 96365; 96375; A4353; J0696; J2270; J2405

== ENCOUNTER 2018-08-05 06:32 | Emergency (ER) | payer MEDICARE ==
[2018-08-05 07:08] LABS: #Eosinphils 0.1 thou/uL (0.0-0.7); #Lymphocytes 1.2 thou/uL (1.20-3.40); #Monocytes 0.6 thou/uL (0.11-0.59); #Neutrophils 4.6 thou/uL (1.40-6.50); %Basophils 0.5 % (0.0-1.0); %Eosinophils 2.1 % (0.0-10.0); %Lymphocytes 18.5 % (21.0-51.0); %Monocytes 9.6 % (0.0-10.0); %Neutrophils 69.3 % (42.0-75.0); Hemoglobin 13.5 g/dL (12.0-16.0); Mean Corpuscular HGB CONC 32.9 g/dL (32.0-36.0); Mean Corpuscular Hemoglobin 34.5 pg (27.0-31.0); Mean Platelet Volume 7.4 fL (7.4-10.4); Platelet Count 277 thou/uL (130-400); RBC Distribution Width 13.1 % (11.5-14.5); Red Blood Cell (RBC) Count 3.91 mill/uL (4.20-5.40); White Blood Cell (WBC) Count 6.6 thou/uL (4.8-10.8)
[2018-08-05] MEDS ORDERED: Methocarbamol 1 GM/10 ML VIAL SLOW IVP SCH (07:15)
[2018-08-05 07:31] LABS: ALT (SGPT) 23 U/L (8-55); AST (SGOT) 32 U/L (5-34); Albumin 4.6 g/dL (3.4-4.8); Alkaline Phosphatase 84 U/L (40-150); Anion Gap 17 mmol/L (10-20); BUN (Urea Nitrogen) 62 mg/dL (9.8-20.1); Bilirubin, Total 0.4 mg/dL (0.2-1.2); Calc. Creatinine Clearance 0 mL/min (70-130); Calcium 9.8 mg/dL (7.8-10.44); Carbon Dioxide 21 mmol/L (23-31); Chloride 106 mmol/L (98-107); Estimated GFR-MDRD 17; Globulin 2.7 g/dL (2.4-3.5); Glucose 111 mg/dL (83-110); Potassium 4.8 mmol/L (3.5-5.1); Protein, Total 7.3 g/dL (6.0-8.3); Sodium 139 mmol/L (136-145)
[2018-08-05 07:34] LABS: Bilirubin Small (Negative); Blood, Urine Large (Negative); Clarity TURBID (Clear); Glucose, Urine (Dipstick) Negative (Negative); Leukocyte Large (Negative); Nitrite Negative (Negative); Protein, Urine (Dipstick) 30 mg/dL (Neg-Trace); Specific Gravity, Urine 1.026 (1.002-1.036); Urobilinogen 0.2 mg/dL (0.2-1.0)
[2018-08-05 07:35] LABS: Bacteria/HPF None Seen HPF (None Seen); Hyaline Casts/LPF 4-6 HYALINE CAST LPF (0-3 Hyaline); Pathc Cast-AUWi Flag 1.74 (0-2.49); RBC/HPF None Seen HPF (0-3); Squamous Epithelial 0-3 HPF (0-3); WBC/HPF None Seen HPF (0-3)
--- NOTE | 2018-08-05 08:15 | CT ---
CT CHEST WITHOUT CONTRAST: Date: 08/05/18 HISTORY: Chronic back pain, left-sided rib pain. FINDINGS: Absence of IV contrast reduces the sensitivity of exam, particularly for evaluation of mediastinal, h ilar, and vascular structures. There are vascular calcifications. There is ectasia of the thoracic aorta without evidence of aneurys m formation. No pleural or pericardial effusions are seen. No pneumothoraces or focal areas of consol idation are seen. There is a 7.0 mm nodule in the right upper lobe. A 3.0 mm nodule is seen in the verduzco perior segment of the right lower lobe. A calcified granuloma is seen in the right lung base. There a re multiple compression deformities of the thoracic spine. Nonobstructing bilateral renal calculi are seen. Left-sided pacemaker device is present. IMPRESSION: Indeterminate right lung nodules. A follow-up exam is recommended in 3-4 months. CODE T Code L POS: [facility]
== END 2018-08-05 09:27 | disposition home or self-care (01) ==
LOC: ERS 06:32
DX: G89.29 Other chronic pain (principal); M54.9 Dorsalgia, unspecified; J44.9 Chronic obstructive pulmonary disease, unspecified; D64.9 Anemia, unspecified; E03.9 Hypothyroidism, unspecified; K21.9 Gastro-esophageal reflux disease without esophagitis; F41.9 Anxiety disorder, unspecified; F32.9 Major depressive disorder, single episode, unspecified; Z87.891 Personal history of nicotine dependence; Z79.899 Other long term (current) drug therapy; Z79.891 Long term (current) use of opiate analgesic
CPT/HCPCS: 71250; 80053; 81003; 81015; 84484; 85025; 87077; 87086; 87186; 93005; 96360; 96365; J2800

== ENCOUNTER 2018-08-23 08:38 | Outpatient (CLI) | payer MEDICARE ==
--- NOTE | 2018-08-23 11:12 | CT ---
THORACIC SPINE CT NONCONTRAST: Date: 08/23/18 HISTORY: Pain. Compression Fracture. Reference made to thoracic spine CT dated 09/11/12. Recent CT thorax of 08/05/18 also referenced, mary stafford direct spine correlation to the chest CT is somewhat correlated. FINDINGS: There is prominent kyphosis of the thoracic spine. There is moderate height loss of T3, mild height l oss of T5, severe height loss of T7, moderate central height loss of T8, mild superior end plate heig ht loss of T10, and severe central height loss of T11 and T12 vertebral segments. There is mild infer ior, posterior retropulsion of bone at the T3 segment, T7 segment, and T11 segment. There is mild pos terior superior retropulsion of bone at the T12 segment. When comparing to prior thoracic spine CT of 09/11/12, multilevel compression deformities are grossly stable. Incidental note of calcification at the right kidney, incompletely evaluated. There is enlargement of the imaged cardiac chambers and diffuse vascular disease. Incidental pulmonary nodule formation. Ple ase reference the 08/05/18 CT chest exam for further details. IMPRESSION: Multilevel, diffuse compression deformities throughout the imaged thoracic spine with associated kyph osis. POS: [facility]
== END 2018-08-23 08:39 | disposition home or self-care (01) ==
LOC: CT 08:38
PROVIDERS: ATTEND Nurse Practitioner Family
DX: M48.54XA Collapsed vertebra, not elsewhere classified, thoracic region, initial encounter for fracture (principal); M54.14 Radiculopathy, thoracic region; M40.204 Unspecified kyphosis, thoracic region
CPT/HCPCS: 72128

== ENCOUNTER 2018-11-03 15:12 | Observation (INO) | payer MEDICARE ==
[2018-11-03] MEDS ORDERED: Nitroglycerin 2% Ointment 1 INCH/1 GM Packet ONE (16:13)
[2018-11-03] MEDS ORDERED: Aspirin Chewable 81 MG TAB ONE (16:13)
[2018-11-03 17:13] LABS: #Eosinphils 0.2 thou/uL (0.0-0.7); #Lymphocytes 1.5 thou/uL (1.20-3.40); #Monocytes 0.5 thou/uL (0.11-0.59); #Neutrophils 4.1 thou/uL (1.40-6.50); %Basophils 0.5 % (0.0-1.0); %Eosinophils 3.8 % (0.0-10.0); %Lymphocytes 22.6 % (21.0-51.0); %Monocytes 8.4 % (0.0-10.0); %Neutrophils 64.7 % (42.0-75.0)
[2018-11-03 17:14] LABS: Hemoglobin 13.6 g/dL (12.0-16.0); Mean Corpuscular HGB CONC 33.7 g/dL (32.0-36.0); Mean Corpuscular Hemoglobin 34.4 pg (27.0-31.0); Mean Platelet Volume 8.8 fL (7.4-10.4); Platelet Count 177 thou/uL (130-400); RBC Distribution Width 10.9 % (11.5-14.5); Red Blood Cell (RBC) Count 3.94 mill/uL (4.20-5.40); White Blood Cell (WBC) Count 6.4 thou/uL (4.8-10.8)
[2018-11-03 17:25] LABS: ALT (SGPT) 18 U/L (8-55); AST (SGOT) 24 U/L (5-34); Albumin 4.1 g/dL (3.4-4.8); Alkaline Phosphatase 93 U/L (40-150); Anion Gap 16 mmol/L (10-20); BUN (Urea Nitrogen) 66 mg/dL (9.8-20.1); Bilirubin, Total 0.2 mg/dL (0.2-1.2); Calc. Creatinine Clearance 0 mL/min (70-130); Calcium 9.8 mg/dL (7.8-10.44); Carbon Dioxide 27 mmol/L (23-31); Chloride 100 mmol/L (98-107); Estimated GFR-MDRD 18; Globulin 2.3 g/dL (2.4-3.5); Glucose 127 mg/dL (83-110); Protein, Total 6.4 g/dL (6.0-8.3); Sodium 138 mmol/L (136-145)
--- NOTE | 2018-11-03 17:34 | RAD ---
FRONTAL RADIOGRAPH CHEST 11/03/18 COMPARISON: 06/09/18 HISTORY: Shortness of breath and chest pain. FINDINGS: There is a stable dual lead transvenous pacing device inserted via a left subclavian approach. Stable atherosclerotic calcification of the thoracic aorta and imaged abdominal aorta. Clips in right upper quadrant suggests prior cholecystectomy. There is diffuse increased linear interstitial density, sta ble. No pneumothorax, pleural fluid, focal consolidation, or alveolar edema. IMPRESSION: Stable appearance of the chest - no acute findings. POS: [facility]
[2018-11-03 17:37] LABS: MDiff Complete? YES; Platelet Clumps SLIGHT; Platelet Morphology Comment Appears Adequate; RBC Morphology Normal
[2018-11-03] MEDS ORDERED: Ondansetron PF 4 MG/2 ML Vial IVP PRN (18:00)
[2018-11-03] MEDS ORDERED: Acetaminophen 325 MG TAB PO PRN (18:00)
[2018-11-03] MEDS ORDERED: Ondansetron ODT 4 MG TAB SL PRN (18:00)
[2018-11-03] MEDS ORDERED: Fentanyl 100 MCG/2 ML VIAL ONE (18:23)
[2018-11-03 19:45] VITALS: BMI 17.6
[2018-11-03 20:31] LABS: Troponin I 0.018 ng/mL (< 0.028)
[2018-11-03] MEDS: HYDROcodone/Acetaminophen 10/325 mg Tablet PO PRN (22:23)
[2018-11-03] MEDS: Nitroglycerin 2% Ointment 1 INCH/1 GM Packet TOP SCH (22:24)
[2018-11-04 00:06] LABS: Troponin I Less than 0.010 ng/mL (< 0.028)
--- NOTE | 2018-11-04 02:58 | HP ---
CHIEF COMPLAINT: Chest pain. HISTORY OF PRESENT ILLNESS: This is an 88-year-old woman who is presenting with complaints of lower chest pain and shortness of breath. The patient states that has been intermittent for the last 2 days. On initial assessment, the patient immediately began requesting for analgesia, though she does not seem to be in any significant discomfort and is actually smiling and appears calm. She had been asking the nurse, prior to my assessment, for analgesia. The patient states the pain is across the lower part of her chest. She is specifically requesting Manteo for her pain, which she takes 3 times a day at home. She has a background history of CHF, AFib, DVT, CKD, and hypertension. The patient reports some improvement with nitroglycerin paste given on initial presentation to the ED. REVIEW OF SYSTEMS: She reports increased pain in the epigastric region with deep inspiration. Denies having any cough or hemoptysis. Has not had any fevers, chills, or sweats. Denies having any nausea or vomiting. She has been moving her bowels as normal and denies any urinary symptoms. No generalized weakness. Denies having any trauma. All other review of systems are negative. PAST MEDICAL HISTORY: 1. GERD. 2. Anemia. 3. Hypertension. 4. Hyperlipidemia. 5. Hypothyroidism. 6. Osteoporosis. 7. COPD. 8. CKD. 9. History of renal stones. 10. History of left lower extremity DVT. 11. Chronic back pain. 12. Anxiety. 13. Depression. PAST SURGICAL HISTORY: 1. Cholecystectomy. 2. Appendectomy. 3. Hysterectomy. 4. Tonsillectomy. 5. Right hip replacement. 6. Kidney stents in January 2018. 7. Left hip . 8. Pacemaker placed in September 2017. SOCIAL HISTORY: The patient is a previous smoker, but quit more than 10 years ago. She lives at [facility]. She reports rare alcohol use. Denies any drug use. ALLERGIES: NO KNOWN DRUG ALLERGIES. CURRENT MEDICATIONS: 1. Levothyroxine. 2. . 3. Alprazolam. 4. Amlodipine. 5. Theragran. 6. Vitamin D3. 7. Trazodone. 8. Eliquis. 9. Famotidine. 10. Ferrous sulfate. 11. Furosemide. 12. Potassium chloride. 13. Claritin. 14. Home oxygen. 15. MiraLAX. 16. Manteo. 17. Milk of Magnesia. 18. Zofran ODT. PHYSICAL EXAMINATION: GENERAL: The patient appears thin, well developed, and is in no acute distress. However, she states she has 8/10 pain and is requesting Manteo. VITAL SIGNS: Temperature 98.1, pulse 81, respirations 16, O2 saturation 97% on room air, blood pressure 138/64. HEENT: Normocephalic and atraumatic. Pupils are equal, round, and reactive to light. Sclerae are without icterus. Oropharynx is clear. NECK: Supple. No lymphadenopathy. LUNGS: Clear to auscultation bilaterally without wheezes, rales, or rhonchi. CARDIAC: Regular rate and rhythm without murmurs, rubs, or gallops. ABDOMEN: Soft with right upper quadrant tenderness to light palpation, voluntary guarding. No rigidity. Positive bowel sounds present. EXTREMITIES: No edema or swelling. NEUROLOGIC: Oriented x3. SKIN: Without rash or jaundice. LABORATORY DATA: White blood count 6.4, hemoglobin 13.6, hematocrit 40.2, platelets 177. Sodium 138, potassium 5.0, BUN 66, creatinine 2.48, GFR 18. Total bilirubin 0.2, AST 24, ALT 18, alkaline phosphatase 73. Troponin negative x2. BNP 236.9, albumin 4.1. IMAGING DATA: Chest x-ray 11/03/2018. Stable appearance with no acute findings. IMPRESSION AND PLAN: Ms. Thapa is a pleasant 88-year-old woman admitted for management of the following. 1. Chest pain, rule out. Troponin negative x2. Awaiting third troponin. The patient states pain is across the lower part of her chest. Echo done in March 2018 and showed moderately dilated left atrium, moderate MR, mild AR, and mild TR. EF of 50% to 55%. Again, awaiting third troponin. BNP 236.9. chest x-ray negative. 2. Abdominal pain. The patient with right upper quadrant tenderness on palpation. LFTs unremarkable. She has been moving her bowels and is passing flatus. No abdominal distention. No nausea or vomiting. We will give Manteo for pain. We will monitor. Consider imaging if persists. 3. We will obtain urinalysis. 4. Chronic kidney disease. Stable. Continue to monitor. 5. History of deep vein thrombosis. The patient is on Eliquis, continue. 6. Hypertension. Resume home medications. Monitor BP. 7. Gastrointestinal prophylaxis. 8. Full code status. The patient's case was discussed with Dr. Taylor. Who agrees with plan of care as described above. Job ID: [id number]
[2018-11-04] MEDS: HYDROcodone/Acetaminophen 10/325 mg Tablet PO PRN ×2 (04:32→10:33)
[2018-11-04] MEDS: Nitroglycerin 2% Ointment 1 INCH/1 GM Packet TOP SCH (04:33)
[2018-11-04 05:41] LABS: #Basophils 0.1 thou/uL (0.0-0.2); #Eosinphils 0.2 thou/uL (0.0-0.7); #Lymphocytes 1.4 thou/uL (1.20-3.40); #Monocytes 0.5 thou/uL (0.11-0.59); #Neutrophils 3.1 thou/uL (1.40-6.50); %Basophils 1.2 % (0.0-1.0); %Lymphocytes 25.9 % (21.0-51.0); %Monocytes 9.3 % (0.0-10.0); %Neutrophils 59.6 % (42.0-75.0); Mean Corpuscular Hemoglobin 34.3 pg (27.0-31.0); Mean Platelet Volume 8.3 fL (7.4-10.4); Platelet Count 220 thou/uL (130-400); RBC Distribution Width 10.9 % (11.5-14.5); White Blood Cell (WBC) Count 5.2 thou/uL (4.8-10.8)
[2018-11-04 05:59] LABS: Anion Gap 13 mmol/L (10-20); BUN (Urea Nitrogen) 63 mg/dL (9.8-20.1); Calc. Creatinine Clearance 14 mL/min (70-130); Calcium 9.2 mg/dL (7.8-10.44); Carbon Dioxide 27 mmol/L (23-31); Chloride 101 mmol/L (98-107); Estimated GFR-MDRD 21; Glucose 98 mg/dL (83-110); Sodium 136 mmol/L (136-145)
[2018-11-04] MEDS ORDERED: Trospium 20 MG TAB PO SCH (09:00)
[2018-11-04] MEDS ORDERED: Apixaban 2.5 MG TAB PO SCH (09:00)
[2018-11-04] MEDS ORDERED: Famotidine/PF 20 mg/2ml Vial SLOW IVP SCH (09:00)
[2018-11-04] MEDS ORDERED: ALPRAZolam 1 MG TAB PO SCH (09:00)
[2018-11-04] MEDS ORDERED: Amlodipine 5 MG TAB PO SCH (09:00)
[2018-11-04 09:01] VITALS: BP 134/64; TEMP 98
[2018-11-04] MEDS ORDERED: traZODone HCl 50 MG TAB PO SCH (21:00)
--- NOTE | 2018-11-04 21:24 | DIS ---
DATE OF ADMISSION: 11/03/2018 DATE OF DISCHARGE: 11/04/2018 DIAGNOSES AT THE TIME OF DISCHARGE: 1. Chest pain/abdominal pain of epigastric area, acute coronary syndrome was ruled out. 2. Dyspnea, most likely related to mild congestive heart failure. 3. Chronic kidney disease with bilateral nonobstructive nephrolithiasis. 4. History of deep vein thrombosis. 5. Hypertension. 6. Hyperlipidemia. 7. Hypothyroidism. 8. Osteoporosis. 9. History of anxiety. 10. History of depression. 11. Anemia. HOSPITAL COURSE: The patient was an 88-year-old female, who presented to the emergency room with shortness of breath and some chest/epigastric area discomfort, which was going on for approximately 2 days. Her BNP was slightly elevated, but the chest x-ray did not show any evidence of congestive heart failure. The patient was placed on nitroglycerin paste and improved to the point that she did not require any O2 supplementation. Her first troponin I level was within normal limits. She got admitted to the hospital for further evaluation of her condition. Her white count at the time of admission was 6.4, hemoglobin 13.6, hematocrit 40.2, and platelet count 177,000. Creatinine was 2.48, BUN was 66, potassium 5.0, sodium 138, and GFR was calculated at 18. Total bilirubin 0.2, AST 24, ALT 18, and alkaline phosphatase 73. Troponin I was negative x2, and BNP 236.9, and albumin 4.1. Chest x-ray showed stable appearance with no acute findings. The patient got admitted to the hospital. The next day, she did not have any complaints to offer except for chronic abdominal discomfort she has for quite some time and despite of the diagnostic workup. There was no any final specific diagnosis to that. The patient is doing well. Her family is here. Her blood pressure is 134/64, pulse is 81, temperature is 98.0, respiratory rate is 20, and O2 saturation is 96% on room air. She is seen and examined before she is discharged. She is discharged back to her assisted, where she lives in [facility] [place] with recommendation to stay on heart healthy diet. ACTIVITIES: As tolerated. MEDICATIONS: At the time of discharge, isosorbide mononitrate 30 mg slow release 1 a day, and all previous medications which are; 1. Levothyroxine 125 mcg once a day. 2. VESIcare 5 mg once a day. 3. Claritin 10 mg once a day. 4. Magnesium hydroxide 30 mL p.o. p.r.n. 5. DuoNeb q.i.d. p.r.n. 6. Hydrocodone by titrate 10/325 mg 1 tablet q.6 hours p.r.n. as needed. 7. Tylenol 1000 mg q.6 hours p.r.n. as needed. 8. Saccharomyces boulardii, which is Florastor 250 mg once a day. 9. Polyethylene glycol. 10. MiraLAX 17 g once a day. 11. Potassium chloride 10 mEq twice a day. 12. Loratadine 10 mg once a day. 13. Furosemide 20 mg twice a day. 14. Ferrous sulfate 325 mg once a day. 15. Pepcid 20 mg twice a day. 16. Vitamin D3 of 1000 units once a day. 17. Eliquis 2.5 mg twice a day. 18. Trazodone 50 mg at bedtime. 19. Multivitamin 1 tablet once a day. 20. Calcium 1 tablet at bedtime. 21. Amlodipine 5 mg once a day. 22. Alprazolam 0.25 mg p.o. daily. FOLLOWUP: The patient is going to follow up with her primary care physician, Dr. Cardenas in 1 week. She is seen and examined before she is discharged and the discharge time is less than 30 minutes. Job ID: [id number]
== END 2018-11-04 13:17 ==
LOC: ERS 15:12 → 2SW 19:41
PROVIDERS: ADMIT Internal Medicine; ATTEND Internal Medicine
DX: R07.9 Chest pain, unspecified (principal); R10.13 Epigastric pain; I13.0 Hypertensive heart and chronic kidney disease with heart failure and stage 1 through stage 4 chronic kidney disease, or unspecified chronic kidney disease; N18.9 Chronic kidney disease, unspecified; I50.9 Heart failure, unspecified; I48.91 Unspecified atrial fibrillation; D63.1 Anemia in chronic kidney disease; K21.9 Gastro-esophageal reflux disease without esophagitis; E78.5 Hyperlipidemia, unspecified; E03.9 Hypothyroidism, unspecified; M81.0 Age-related osteoporosis without current pathological fracture; G89.29 Other chronic pain; M54.9 Dorsalgia, unspecified; F41.9 Anxiety disorder, unspecified; F32.9 Major depressive disorder, single episode, unspecified; Z87.891 Personal history of nicotine dependence; Z79.01 Long term (current) use of anticoagulants; Z79.899 Other long term (current) drug therapy; Z86.718 Personal history of other venous thrombosis and embolism
CPT/HCPCS: 71045; 80048; 80053; 83880; 84484 ×2; 85025 ×2; 93005; 94760; 96374; 96375; 99285; G0378 ×2; 36415; J3010; S0028

== ENCOUNTER 2018-11-15 10:00 | Outpatient (CLI) | payer MEDICARE ==
--- NOTE | 2018-11-15 10:24 | RAD ---
TWO VIEWS CHEST: Comparison: 11-03-18 History: Dyspnea. FINDINGS: Two views of the chest shows normal sized cardiomediastinal silhouette. The pacemaker is unchanged in position. There is no evidence of consolidation, mass, or pleural effusion. Increased interstitial m arkings are present. IMPRESSION: No evidence of acute cardiopulmonary disease. POS: [facility]
== END 2018-11-15 10:01 | disposition home or self-care (01) ==
LOC: RAD 10:00
PROVIDERS: ATTEND Internal Medicine Critical Care Medicine
DX: R06.00 Dyspnea, unspecified (principal)
CPT/HCPCS: 71046

== ENCOUNTER 2018-11-22 10:14 | Observation (INO) | payer MEDICARE ==
[2018-11-22 11:19] LABS: #Eosinphils 0.1 thou/uL (0.0-0.7); #Lymphocytes 1.3 thou/uL (1.20-3.40); #Monocytes 0.5 thou/uL (0.11-0.59); #Neutrophils 3.3 thou/uL (1.40-6.50); %Basophils 0.6 % (0.0-1.0); %Eosinophils 1.8 % (0.0-10.0); %Lymphocytes 25.2 % (21.0-51.0); %Monocytes 8.6 % (0.0-10.0); %Neutrophils 63.7 % (42.0-75.0); Hemoglobin 13.5 g/dL (12.0-16.0); Mean Corpuscular HGB CONC 32.7 g/dL (32.0-36.0); Mean Corpuscular Hemoglobin 33.2 pg (27.0-31.0); Mean Platelet Volume 7.1 fL (7.4-10.4); Platelet Count 284 thou/uL (130-400); RBC Distribution Width 12.1 % (11.5-14.5); Red Blood Cell (RBC) Count 4.08 mill/uL (4.20-5.40); White Blood Cell (WBC) Count 5.2 thou/uL (4.8-10.8)
[2018-11-22] MEDS ORDERED: Morphine 2 MG/ML SYRINGE ONE ×4 (11:20→16:33)
[2018-11-22 11:53] LABS: ALT (SGPT) 32 U/L (8-55); AST (SGOT) 42 U/L (5-34); Albumin 4.6 g/dL (3.4-4.8); Alkaline Phosphatase 79 U/L (40-150); Anion Gap 19 mmol/L (10-20); BUN (Urea Nitrogen) 52 mg/dL (9.8-20.1); Bilirubin, Total 0.5 mg/dL (0.2-1.2); Calc. Creatinine Clearance 0 mL/min (70-130); Calcium 9.9 mg/dL (7.8-10.44); Carbon Dioxide 20 mmol/L (23-31); Chloride 108 mmol/L (98-107); Estimated GFR-MDRD 18; Globulin 2.4 g/dL (2.4-3.5); Glucose 116 mg/dL (83-110); Lipase 13 U/L (8-78); Potassium 4.6 mmol/L (3.5-5.1); Sodium 142 mmol/L (136-145)
[2018-11-22 12:47] LABS: Bilirubin Negative (Negative); Blood, Urine Small (Negative); Glucose, Urine (Dipstick) Negative (Negative); Leukocyte Moderate (Negative); Nitrite Positive (Negative); Protein, Urine (Dipstick) 30 mg/dL (Neg-Trace); Specific Gravity, Urine 1.015 (1.005-1.030); Urobilinogen 0.2 mg/dL (0.2-1.0)
[2018-11-22 12:52] LABS: Clarity Cloudy (Clear)
[2018-11-22 12:59] LABS: Squamous Epithelial 0-3 HPF (0-3)
[2018-11-22 13:00] LABS: Bacteria/HPF 1+ HPF (None Seen); Hyaline Casts/LPF NONE SEEN LPF (0-3 Hyaline); Renal Epithelial None Seen HPF (0-3); Transitional Epithelial 0-3 HPF (0-3)
--- NOTE | 2018-11-22 13:17 | CT ---
ABDOMEN AND PELVIS CT SCAN WITHOUT IV CONTRAST: Date: 11/22/18 HISTORY: Left flank pain for 5 days with worsening. COMPARISON: 07/20/18. FINDINGS: Mild linear chronic changes in the bases. Significant bone demineralization with visualized lumbar an d lower thoracic vertebral bodies showing vertical height loss, as well as old left-sided pelvic frac tures and left hip fixation screws and total right hip replacement changes. Small hiatal hernia. Status post cholecystectomy with dilatation of the common bile duct and intrahep atic ducts, stable. Visualized pancreas, spleen, and adrenal glands are unremarkable and stable. Smal l bilateral kidneys with bilateral renal cysts, including some hyperdense cysts, as well as bilateral nonobstructing renal calculi. No abscess or significant abnormal fluid collection. Moderate solid fe leo material throughout the colon. IMPRESSION: Stable abdomen and pelvic CT scan. Small kidneys with nonobstructing renal calculi and bilateral george l cysts, including hyperdense hemorrhagic cysts. Severe bone demineralization with multiple overall s table collapsed lumbar and thoracic vertebral bodies. No evidence for overt acute process. POS: [facility]
[2018-11-22] MEDS ORDERED: cefTRIAXone\\ROCEPHIN 1 GM VIAL ONE (14:20)
[2018-11-22] MEDS ORDERED: Guaifenesin DM 100-10/5 ML UDCUP PO PRN (15:24)
[2018-11-22] MEDS ORDERED: Bisacodyl 10 MG SUPP PR PRN (15:24)
[2018-11-22] MEDS ORDERED: HYDROcodone/Acetaminophen 10/325 mg Tablet PO PRN (15:24)
[2018-11-22] MEDS ORDERED: Acetaminophen 325 MG TAB PO PRN (15:24)
[2018-11-22] MEDS ORDERED: Ondansetron ODT 4 MG TAB PO PRN (15:24)
[2018-11-22] MEDS ORDERED: Acetaminophen 650 MG Suppository PR PRN (15:24)
[2018-11-22] MEDS ORDERED: Bisacodyl 5 MG TAB PO PRN (15:24)
[2018-11-22] MEDS: HYDROcodone/Acetaminophen 10/325 mg Tablet PO PRN ×2 (17:46→23:24)
[2018-11-22] MEDS: Apixaban 5 MG TAB PO SCH (21:32)
[2018-11-22] MEDS: Calcium Carbonate + Vit D 1 TAB PO SCH (21:33)
[2018-11-22] MEDS: Famotidine 20 MG TAB PO SCH (21:33)
[2018-11-22] MEDS: Docusate 100 MG CAP PO SCH (21:33)
--- NOTE | 2018-11-22 22:18 | HP ---
PRIMARY CARE PHYSICIAN: Dr. Devi Cardenas. CHIEF COMPLAINT: Left flank pain. HISTORY OF PRESENT ILLNESS: This is an 88-year-old white female with a known history of previous kidney stones and previous pyelonephritis. She reports a pain in her left flank for undetermined length of time. She was given morphine by the emergency room and is feeling a little confused at the time when I saw her though her pain was much improved. Per the ER notes, the patient initially reported 5 days of flank pain, worsening over time, some radiation. She reports now some radiation to the left abdomen as well. No associated symptoms. The pain feels similar to previous kidney stones, but worse than normal. In the ER, the patient had a negative CT scan, had normal white blood cell count, but have mildly dirty urine, so she was given Rocephin. She has also been given 6 mg of morphine and the pain is improved markedly, though still present, especially with any palpation. PAST MEDICAL HISTORY: The patient is having hard time remembering her medical problems secondary to the recent morphine and to the pain that she has, so a lot of her medical history is supplemented by looking at the history in the chart. 1. Gastroesophageal reflux disease. 2. Anemia. 3. Hypertension. 4. Hyperlipidemia. 5. Hypothyroidism. 6. Osteoporosis. 7. Chronic obstructive pulmonary disease. 8. Chronic kidney disease. 9. Previous kidney stones. 10. Previous DVT in the left lower extremity. 11. Chronic back pain. PAST PSYCHIATRIC HISTORY: 1. Anxiety. 2. Depression. PAST SURGICAL HISTORY: 1. Cholecystectomy. 2. Appendectomy. 3. Hysterectomy. 4. Tonsillectomy. 5. Right hip replacement. 6. Kidney stents in January of 2018. 7. Left hip repair. 8. Pacemaker. SOCIAL HISTORY: The patient is a previous smoker, quit more than 10 years ago. Lives at [facility]. Rare alcohol use. No illicit drug use. She has 6 children. ALLERGIES: NO KNOWN DRUG ALLERGIES. CURRENT MEDICATIONS: 1. Levothyroxine 125 mcg daily. 2. VESIcare 5 mg daily. 3. Alprazolam 0.25 mg daily. 4. Amlodipine 5 mg daily. 5. Theragran 1 tablet daily. 6. Vitamin D3 1000 units daily. 7. Trazodone 50 mg at night. 8. Eliquis 2.5 mg daily. 9. Eliquis 2.5 mg twice a day. 10. Famotidine 20 mg twice a day. 11. Ferrous sulfate 325 mg twice a day. 12. Furosemide 20 mg twice a day. 13. Potassium chloride 10 mEq daily. 14. Claritin 10 mg daily. 15. Tylenol as needed. 16. Polyethylene glycol 17 g daily as needed. 17. [place] as needed. 18. Milk of magnesia as needed. 19. Zofran as needed. REVIEW OF SYSTEMS: CONSTITUTIONAL: No fevers, no chills. EYES: No double vision or blurred vision. ENT: The patient does report some congestion. No drainage or sore throat. CARDIOVASCULAR: No chest pain. No palpitations or racing heart. PULMONARY: No coughing, wheezing, or shortness of breath. GASTROINTESTINAL: See HPI. No nausea or vomiting. No diarrhea or constipation. GENITOURINARY: No dysuria or hematuria. MUSCULOSKELETAL: See HPI. No other muscle aches or joint pain. SKIN: No rashes or other lesions that she has noticed. NEUROLOGIC: No numbness, tingling, or focal weakness. PHYSICAL EXAMINATION: VITAL SIGNS: Blood pressure 141/69, pulse 82, respirations 18, temperature 98.2, O2 saturation 99% on room air. GENERAL: This is a well-developed elderly white female, in no acute distress. HEENT: Pupils equal, round, and reactive to light. Oropharynx clear without lesions, erythema, or exudate. NECK: Supple. No lymphadenopathy. No thyroid nodules or enlargement. HEART: Regular rate and rhythm. No murmurs, rubs, or gallops. LUNGS: Clear to auscultation bilaterally. No wheezes, crackles, or rhonchi. ABDOMEN: Soft, exquisitely tender to palpation in the left upper and lower quadrant in all around her flank, both on the soft tissue and below the rib cage. She also has exquisite tenderness to palpation to light and deep touch of her left lower back up to just the distal thoracic and upper lumbar spine area, but no tenderness to palpation in the actual spine itself. Normoactive bowel sounds. No hepatosplenomegaly or other masses. EXTREMITIES: No clubbing, cyanosis, or edema noted. SKIN: No rashes or other lesions noted, specifically no rashes or vesicles noted over the area of exquisite tenderness. NEUROLOGIC: The patient has intact strength in all extremities. No facial droop. PSYCHIATRIC: Alert and oriented x3 though she is a little groggy, has to think for a while after she was given the morphine. LABORATORY DATA: CBC grossly normal. Complete metabolic panel notable for chloride of 108, bicarb of 20, BUN of 52, creatinine of 2.51, which is actually consistent with her most recent baseline over the last 6 months or so, before that she was in more around 2s. Glucose 116, AST of 42. The rest of the CMP was normal. Urinalysis showed trace ketones, small blood, positive nitrites, moderate leukocyte esterase, 10-20 white blood cells, and 1+ bacteria. CT of the abdomen and pelvis does show significant bone demineralization with visualized lumbar and lower thoracic vertebral body height loss, overall stable. Collapsed lumbar and thoracic vertebrae compared to previous imaging. Small bilateral kidneys with bilateral renal cysts and nonobstructing renal calculi. Some moderate fecal material throughout the colon, overall no abscess or significant abnormal fluid collection. ASSESSMENT: 1. Severe left flank, back, and abdominal pain. The patient does have a history of kidney stones, but the CT scan shows no evidence of obstructing lesion, no hydronephrosis, no obstructing stone visualized, so I doubt the source of her current pain. ER doctor was concerned about possibility of pyelonephritis. The patient does have evidence of a dirty urine, though she has no white blood cell count elevation, no fever and dysuria. I do think continuing the Rocephin would not be a bad idea, though we will continue that 1 g daily and culture for the urine has been ordered by the emergency room. Also the differential is outbreak of shingles. This is on the left side only. She does have hypersensitivity of the skin and exquisite tenderness to even light pressure. So, I think shingles is a distinct possibility. However, at this time, even 5 days and she is not showing any vesicular lesions at all, so we will keep a close eye out for any evidence of a developing lesions, radicular symptoms from her compression fractures also a possibility, though there is no evidence of actual acute changes on her CT scan. For now, we will try her on some muscle relaxants. She is having spastic sort of pain now after my exam and I think giving her any more morphine would be counterproductive at this point given that she is already a little bit altered from the earlier 6 mg. We will re-examine in the morning after institution of muscle relaxants and pain medicines. 2. Urinary tract infection. Urine culture pending. Continue Rocephin. 3. Acute on chronic renal failure. The patient actually appears near her most recent baseline, then perhaps a little bit exacerbated, but we will hold her diuretics overnight and consider restarting them in the morning. 4. Deep venous thrombosis prophylaxis. Continue the patient's Eliquis. 5. Gastrointestinal prophylaxis. We will continue the patient's Pepcid. CODE STATUS: The patient is a full code. I did discuss her medical decision maker with her and she states that this would be her sons, Fawad Thapa and Abelardo Jacksonjac. Job ID: [id number]
[2018-11-23] MEDS: Morphine 4 MG/ML VIAL SLOW IVP PRN ×2 (01:06→08:16)
[2018-11-23] MEDS: HYDROcodone/Acetaminophen 10/325 mg Tablet PO PRN ×4 (04:58→20:12)
[2018-11-23] MEDS ORDERED: Levothyroxine Sodium 125 MCG TAB PO SCH (06:00)
[2018-11-23 06:43] LABS: #Basophils 0.1 thou/uL (0.0-0.2); #Eosinphils 0.2 thou/uL (0.0-0.7); #Lymphocytes 1.5 thou/uL (1.20-3.40); #Monocytes 0.4 thou/uL (0.11-0.59); #Neutrophils 2.7 thou/uL (1.40-6.50); %Eosinophils 4.8 % (0.0-10.0); %Lymphocytes 30.4 % (21.0-51.0); %Monocytes 8.4 % (0.0-10.0); %Neutrophils 55.4 % (42.0-75.0); Hemoglobin 13.1 g/dL (12.0-16.0); Mean Corpuscular HGB CONC 34.2 g/dL (32.0-36.0); Mean Corpuscular Hemoglobin 34.4 pg (27.0-31.0); Mean Platelet Volume 7.2 fL (7.4-10.4); Platelet Count 258 thou/uL (130-400); RBC Distribution Width 12.3 % (11.5-14.5); Red Blood Cell (RBC) Count 3.82 mill/uL (4.20-5.40); White Blood Cell (WBC) Count 4.9 thou/uL (4.8-10.8)
[2018-11-23 07:06] LABS: Anion Gap 18 mmol/L (10-20); BUN (Urea Nitrogen) 52 mg/dL (9.8-20.1); Calc. Creatinine Clearance 0 mL/min (70-130); Calcium 9.6 mg/dL (7.8-10.44); Carbon Dioxide 18 mmol/L (23-31); Chloride 109 mmol/L (98-107); Estimated GFR-MDRD 22; Glucose 99 mg/dL (83-110); Potassium 4.5 mmol/L (3.5-5.1); Sodium 140 mmol/L (136-145)
--- NOTE | 2018-11-23 07:49 | PDOC.PN ---
- Subjective Encounter Start Date: 11/23/18 Encounter Start Time: 11:00 Subjective: Patient with some improvement but still very tender to palpation left -: flank, abd, and back. Treating with morphine now. - Objective Resuscitation Status - Order Detail: 11/22/18 15:08 Resuscitation Status Routine Resuscitation Status: FULL: Full Resuscitation MAR Reviewed: Yes Vital Signs & Weight: Vital Signs (12 hours) Temp Pulse Resp BP Pulse Ox 11/23/18 07:25 98.3 F 80 18 110/71 93 L 11/23/18 05:44 98.4 F 82 16 111/73 96 11/23/18 00:00 98.3 F 82 16 120/71 96 11/22/18 20:52 97.6 F 82 16 122/78 96 Weight Admit Weight 100 lb 15.547 oz Weight 1.616 oz I&O: 11/22/18 11/23/18 11/24/18 06:59 06:59 06:59 Intake Total 40 Output Total 0 Balance 40 Result Diagrams: 11/23/18 06:26 11/23/18 06:26 Phys Exam - Physical Examination Constitutional: NAD HEENT: moist MMs Respiratory: no wheezing, no rales, no rhonchi, clear to auscultation bilateral Cardiovascular: no significant murmur, irregular Gastrointestinal: soft, positive bowel sounds TTP entire left abd, left flank, and left low back, no tenderness to light touch Musculoskeletal: no edema Psychiatric: normal affect, A&O x 3 Dx/Plan (1) Acute left flank pain Code(s): R10.9 - UNSPECIFIED ABDOMINAL PAIN Status: Acute (2) UTI (urinary tract infection) Status: Acute Comment: ER expressed concern for possible pyelonephritis but never ordered a urine culture. UA with mild evidence for infection. Will switch to oral antibiotics. No evident pyelo at this time. (3) Acute renal failure superimposed on stage 3 chronic kidney disease Code(s): N17.9 - ACUTE KIDNEY FAILURE, UNSPECIFIED; N18.3 - CHRONIC KIDNEY DISEASE, STAGE 3 (MODERATE) Status: Acute Comment: creatinine improved back to baseline today, resume home furosemide (4) Atrial fibrillation Code(s): I48.91 - UNSPECIFIED ATRIAL FIBRILLATION Status: Chronic Comment: On Eliquis. Has good rate control. Now in NSR. Has PPM. (5) COPD (chronic obstructive pulmonary disease) Status: Chronic Qualifiers: COPD type: emphysema Comment: No evidence of COPD exacerbation, O2 prn, Duonebs, add Dulera 2 puffs BID (6) GERD (gastroesophageal reflux disease) Code(s): K21.9 - GASTRO-ESOPHAGEAL REFLUX DISEASE WITHOUT ESOPHAGITIS Status: Chronic Qualifiers: Esophagitis presence: without esophagitis Qualified Code(s): K21.9 - Gastro -esophageal reflux disease without esophagitis (7) HTN (hypertension) Code(s): I10 - ESSENTIAL (PRIMARY) HYPERTENSION Status: Chronic Qualifiers: Hypertension type: essential hypertension Qualified Code(s): I10 - Essential (primary) hypertension Comment: Continue Diltiazem 240mg po daily, serial BP monitoring (8) Hypothyroidism Code(s): E03.9 - HYPOTHYROIDISM, UNSPECIFIED Status: Chronic Qualifiers: Hypothyroidism type: acquired Qualified Code(s): E03.9 - Hypothyroidism, unspecified - Plan cont current plan of care, continue antibiotics concern for possible radiculopathy causing the pain, however can't -: get an MRI due to pacemaker. Will try to transition to oral pain meds -: and muscle relaxants and then can send back to residential either tonight -: or tomorrow * . - Discharge Day Encounter end time: 11:10
[2018-11-23] MEDS ORDERED: Ciprofloxacin 500 MG TAB PO SCH ×2 (08:00→20:00)
[2018-11-23] MEDS: Furosemide 20 MG TAB PO SCH ×2 (08:13→20:20)
[2018-11-23] MEDS: Potassium Chloride 10 MEQ TAB PO SCH ×2 (08:13→20:14)
[2018-11-23] MEDS: Apixaban 5 MG TAB PO SCH ×2 (08:14→20:14)
[2018-11-23] MEDS: Famotidine 20 MG TAB PO SCH ×2 (08:14→20:20)
[2018-11-23] MEDS: Docusate 100 MG CAP PO SCH ×2 (08:15→20:15)
[2018-11-23] MEDS ORDERED: Polyethylene Glycol 3350 17 GM Packet PO SCH (09:00)
[2018-11-23] MEDS ORDERED: Amlodipine 5 MG TAB PO SCH (09:00)
[2018-11-23] MEDS ORDERED: Loratadine 10 MG TAB PO SCH (09:00)
[2018-11-23] MEDS ORDERED: Trospium 20 MG TAB PO SCH (09:00)
[2018-11-23] MEDS ORDERED: ALPRAZolam 0.25 MG TAB PO SCH (09:00)
[2018-11-23 13:36] VITALS: BMI 17.3
[2018-11-23] MEDS: Calcium Carbonate + Vit D 1 TAB PO SCH (20:16)
[2018-11-23 20:28] VITALS: BP 125/82; TEMP 97.7
--- NOTE | 2018-11-24 05:52 | DIS ---
DATE OF ADMISSION: 11/22/2018 DATE OF DISCHARGE: 11/23/2018 PRIMARY CARE PHYSICIAN: Dr. Devi Cardenas. REASON FOR ADMISSION: Left flank pain. DIAGNOSES AT DISCHARGE: 1. Brayr-lz-rrdjgqm left flank and back pain, likely musculoskeletal. 2. Urinary tract infection versus chronic bacteriuria. 3. Txzmc-lk-qswlknk kidney failure back to baseline. 4. Chronic paroxysmal atrial fibrillation, on Eliquis. 5. Chronic obstructive pulmonary disease. 6. Gastroesophageal reflux disease. 7. Hypertension. 8. Hypothyroidism. PROCEDURES: 1. CT of the abdomen and pelvis without IV contrast showing stable abdomen and pelvis CT scan with osteoporosis and lumbar thoracic spine compression fractures, but nothing acute. Some punctate kidney stones with no obstruction. No evidence for infection. No evidence for diverticulosis or diverticulitis. No abnormal fluid collection. Does have moderate fecal material throughout the colon. CONSULTATIONS: None. SUMMARY OF HOSPITAL COURSE: This is an 88-year-old white female brought in from the senior living for 5-day history of left flank pain. She initially denied any history of dysuria or injury stating that it has been going for 5 days, getting severely worse. She was given eventually 6 mg of morphine in the emergency room before release of the pain. The patient was put in the hospital. She had a dirty urine in the emergency room. She was concerned about possible pyelonephritis. A CT scan was done without contrast that showed no evidence for obstructing kidney stone, no evidence for pyelo, no evidence of an acute lumbar thoracic spine fracture. She did have an old compression injuries of the disks. The patient had persistence of her symptoms in the hospital, was controlled by morphine initially and then later by hydrocodone. Upon further discussion with her on the day of discharge, she states she actually has had pain like this for 20-30 years, it just got worse 5 days ago. She does take hydrocodone 10/325 in the nursing one 3 times a day as needed for pain. We have increased that to 1-2 every 6 hours with decent control of the pain along with some addition of some Skelaxin. We were unable to get an MRI to further evaluate her back due to pacemaker, but we were unable to find any other sources of the pain besides her chronic spinal disease. DISCHARGE MANAGEMENT: Discharged back to her senior living. ACTIVITY: As tolerated. DIET: Healthy heart diet. The patient is to follow up with Dr. Cardenas, her primary care doctor in the next week. She may benefit from a pain management doctor evaluation as well. DISCHARGE MEDICATIONS: 1. Ciprofloxacin 500 mg twice daily for 7 more days. 2. Hydrocodone/acetaminophen 10/325 one to two tablets every 6 hours as needed for pain, 60 tablets dispensed. 3. Metaxalone 800 mg 3 times a day as needed for muscle spasm, 60 tablets dispensed. She is to continue all her home medications as well. 4. Alprazolam 0.25 mg daily. 5. Amlodipine 5 mg daily. 6. Eliquis 2.5 mg twice daily. 7. Calcium/vitamin D3 one tablet each night. 8. Vitamin D3 1000 units daily. 9. Furosemide 20 mg twice daily. 10. DuoNeb as needed. 11. Levothyroxine 125 mcg daily. 12. Loratadine 10 mg daily. 13. MiraLAX 17 g daily as needed. 14. Potassium chloride 10 mEq twice daily. 15. VESIcare 5 mg daily. 16. Trazodone 50 mg at night. 17. Acetaminophen as needed. 18. Famotidine 20 mg twice daily. 19. Ferrous sulfate 325 mg daily. 20. Imdur ER 30 mg daily. 21. Milk of magnesia 30 mL daily. 22. Theragran 1 tablet daily. 23. Florastor 250 mg daily. Job ID: [id number]
== END 2018-11-23 20:40 ==
LOC: ERS 10:14 → ERHOLD 15:14 → T4-B 17:40
PROVIDERS: ADMIT Emergency Medicine; ATTEND Emergency Medicine
DX: G89.29 Other chronic pain (principal); R10.9 Unspecified abdominal pain; M54.9 Dorsalgia, unspecified; I48.0 Paroxysmal atrial fibrillation; J44.9 Chronic obstructive pulmonary disease, unspecified; N39.0 Urinary tract infection, site not specified; K21.9 Gastro-esophageal reflux disease without esophagitis; E03.9 Hypothyroidism, unspecified; I12.9 Hypertensive chronic kidney disease with stage 1 through stage 4 chronic kidney disease, or unspecified chronic kidney disease; N18.3 Chronic kidney disease, stage 3 (moderate); N17.9 Acute kidney failure, unspecified; D64.9 Anemia, unspecified; M81.0 Age-related osteoporosis without current pathological fracture; F41.9 Anxiety disorder, unspecified; F32.9 Major depressive disorder, single episode, unspecified; Z86.718 Personal history of other venous thrombosis and embolism; Z87.891 Personal history of nicotine dependence; Z79.899 Other long term (current) drug therapy; Z79.01 Long term (current) use of anticoagulants; Z95.0 Presence of cardiac pacemaker
CPT/HCPCS: 74176; 80048; 80053; 83690; 85025 ×2; 96365; 96375; 96376 ×2; 97116; 97139 ×4; 99285; G0378 ×2; 36415; 81003; 81015; J0696; J2270

== ENCOUNTER 2018-12-07 09:14 | Outpatient (CLI) | payer MEDICARE ==
--- NOTE | 2018-12-07 13:25 | NM ---
Exam: NUCLEAR MEDICINE WHOLE BODY SCAN: HISTORY: Wedge compression fracture at T7-T8. COMPARISON: None. CORRELATION: CT thoracic spine 08/23/2018. FINDINGS: There is increased radiotracer localization in the mid thoracic spine at approximately the T7 level, corresponding to previous CT. There is also a compression fracture with increased radiotracer localization involving the L1 vertebral body. Physiologic distribution of radiotracer as well as radiotracer distribution due to multi-joint degene rative changes noted. Photopenia due to right hip arthroplasty is identified. TECHNIQUE: Patient administered 33 mCi of technetium 99m MDP intravenously. IMPRESSION: Increased radiotracer localization of the T7 and L1 level, compatible with known compression fractur es. Transcribed Date/Time: 12/07/2018 1:41 PM
== END 2018-12-07 09:15 | disposition home or self-care (01) ==
LOC: NM 09:14
PROVIDERS: ATTEND Anesthesiology Pain Medicine
DX: S22.060A Wedge compression fracture of T7-T8 vertebra, initial encounter for closed fracture (principal)
CPT/HCPCS: 78306; A9503

== ENCOUNTER 2019-02-12 14:15 | Emergency (ER) | payer MEDICARE ==
[2019-02-12 15:20] LABS: #Lymphocytes 1.6 thou/uL (1.20-3.40); #Monocytes 0.6 thou/uL (0.11-0.59); #Neutrophils 6.1 thou/uL (1.40-6.50); %Basophils 0.4 % (0.0-1.0); %Eosinophils 0.5 % (0.0-10.0); %Monocytes 6.7 % (0.0-10.0); %Neutrophils 73.5 % (42.0-75.0); Hemoglobin 13.7 g/dL (12.0-16.0); Mean Corpuscular HGB CONC 34.3 g/dL (32.0-36.0); Mean Corpuscular Hemoglobin 35.2 pg (27.0-31.0); Mean Platelet Volume 7.9 fL (7.4-10.4); Platelet Count 239 thou/uL (130-400); RBC Distribution Width 12.3 % (11.5-14.5); White Blood Cell (WBC) Count 8.3 thou/uL (4.8-10.8)
[2019-02-12] MEDS ORDERED: Ondansetron ODT 4 MG TAB ONE (15:43)
[2019-02-12] MEDS ORDERED: Acetaminophen 500 MG TAB ONE (15:43)
[2019-02-12 15:44] LABS: ALT (SGPT) 23 U/L (8-55); AST (SGOT) 46 U/L (5-34); Albumin 4.3 g/dL (3.4-4.8); Alkaline Phosphatase 67 U/L (40-150); Anion Gap 22 mmol/L (10-20); BUN (Urea Nitrogen) 50 mg/dL (9.8-20.1); Bilirubin, Total 0.4 mg/dL (0.2-1.2); Calc. Creatinine Clearance 0 mL/min (70-130); Carbon Dioxide 14 mmol/L (23-31); Chloride 108 mmol/L (98-107); Estimated GFR-MDRD 21; Globulin 2.5 g/dL (2.4-3.5); Glucose 100 mg/dL (83-110); Potassium 4.6 mmol/L (3.5-5.1); Protein, Total 6.8 g/dL (6.0-8.3); Sodium 139 mmol/L (136-145)
[2019-02-12 16:07] LABS: Bilirubin Negative (Negative); Blood, Urine Trace (Negative); Glucose, Urine (Dipstick) Negative (Negative); Leukocyte Moderate (Negative); Nitrite Negative (Negative); Protein, Urine (Dipstick) 30 mg/dL (Neg-Trace); Urobilinogen 0.2 mg/dL (Less than 2)
[2019-02-12 16:11] LABS: Clarity Hazy (Clear)
[2019-02-12 16:27] LABS: Bacteria/HPF Rare-Few HPF (None Seen); RBC/HPF 0-3 HPF (0-3); Squamous Epithelial 0-3 HPF (0-3); WBC/HPF 21-50 HPF (0-3)
== END 2019-02-12 18:22 | disposition home or self-care (01) ==
LOC: ERS 14:15
DX: R10.12 Left upper quadrant pain (principal); R10.32 Left lower quadrant pain; K21.9 Gastro-esophageal reflux disease without esophagitis; D64.9 Anemia, unspecified; I10 Essential (primary) hypertension; E78.5 Hyperlipidemia, unspecified; E03.9 Hypothyroidism, unspecified; M81.0 Age-related osteoporosis without current pathological fracture; J44.9 Chronic obstructive pulmonary disease, unspecified; F41.9 Anxiety disorder, unspecified; F32.9 Major depressive disorder, single episode, unspecified; Z87.891 Personal history of nicotine dependence; Z79.899 Other long term (current) drug therapy; Z79.01 Long term (current) use of anticoagulants
CPT/HCPCS: 36415; 51701; 80053; 81003; 85025; 87077; 87086; 87186; A4353; Q0162

== ENCOUNTER 2019-02-18 05:56 | Observation (INO) | payer MEDICARE ==
[2019-02-18] MEDS ORDERED: Morphine 4 MG/ML VIAL ONE (06:11)
[2019-02-18] MEDS ORDERED: Ondansetron PF 4 MG/2 ML Vial ONE (06:11)
[2019-02-18 07:19] LABS: #Basophils 0.1 thou/uL (0.0-0.2); #Eosinphils 0.1 thou/uL (0.0-0.7); #Lymphocytes 1.6 thou/uL (1.20-3.40); #Monocytes 0.4 thou/uL (0.11-0.59); #Neutrophils 3.7 thou/uL (1.40-6.50); %Basophils 1.1 % (0.0-1.0); %Eosinophils 2.3 % (0.0-10.0); %Lymphocytes 26.4 % (21.0-51.0); %Monocytes 7.4 % (0.0-10.0); %Neutrophils 62.8 % (42.0-75.0); Hemoglobin 13.9 g/dL (12.0-16.0); Mean Corpuscular HGB CONC 33.1 g/dL (32.0-36.0); Mean Corpuscular Hemoglobin 34.6 pg (27.0-31.0); Mean Platelet Volume 7.4 fL (7.4-10.4); Platelet Count 276 thou/uL (130-400); RBC Distribution Width 13.2 % (11.5-14.5); Red Blood Cell (RBC) Count 4.01 mill/uL (4.20-5.40); White Blood Cell (WBC) Count 5.9 thou/uL (4.8-10.8)
[2019-02-18 07:28] LABS: Bacteria/HPF 1+ HPF (None Seen); Bilirubin Negative (Negative); Blood, Urine 1+ (Negative); Clarity Extra Turbid (Clear); Glucose, Urine (Dipstick) Normal (Negative); Leukocyte 500 Leu/uL (Negative); Nitrite Negative (Negative); Protein, Urine (Dipstick) 50 mg/dL (Neg-Trace); RBC/HPF Greater than 50 HPF (0-3); Squamous Epithelial 0-3 HPF (0-3); Urobilinogen Normal mg/dL (Less than 2); WBC/HPF Greater than 50 HPF (0-3)
[2019-02-18] MEDS ORDERED: Magnesium 2 GM/50 ML BAG (IN WATER) ONE (07:36)
[2019-02-18] MEDS ORDERED: Magnesium Citrate 300 ML BOT ONE (07:37)
--- NOTE | 2019-02-18 07:38 | CT ---
CT OF ABDOMEN AND PELVIS NONCONTRAST RENAL CALCULUS PROTOCOL: COMPARISON: 07/20/2018, CT exam 11/22/2018. CLINICAL HISTORY: Back pain 3-4 days in duration, localizing to left flank. FINDINGS: Redemonstration of bilateral renal calcifications, similar-appearing to recent comparison exam, along with redemonstration of parenchymal atrophy of the kidneys. No interval overt hydronephrosis has de veloped. Multiple compression deformities of the spine are redemonstrated. Streak artifact limits v isualization, etc. There is a prominent degree of retained fecal material with associated distention of the distal colon. Correlate clinically. There is marked limitations of the low abdomen and pelv is due to streak artifact from bilateral hip hardware. The visualized lung bases reveal scarring and /or volume loss. Diffuse atherosclerotic disease is present. The evaluation is limited on the basis of noncontrast technique, without additional significant interval change from recent comparison exam . IMPRESSION: 1. Grossly stable kidneys with bilateral calcifications and parenchymal atrophy. No interval overt hydronephrosis. 2. Constipation. 3. Redemonstration of multiple compression deformities of the imaged spine. POS: MANINDER
[2019-02-18 07:40] LABS: ALT (SGPT) 36 U/L (8-55); AST (SGOT) 26 U/L (5-34); Albumin 4.4 g/dL (3.4-4.8); Alkaline Phosphatase 72 U/L (40-150); Anion Gap 20 mmol/L (10-20); BUN (Urea Nitrogen) 75 mg/dL (9.8-20.1); Bilirubin, Total 0.4 mg/dL (0.2-1.2); Calc. Creatinine Clearance 0 mL/min (70-130); Calcium 10.6 mg/dL (7.8-10.44); Carbon Dioxide 14 mmol/L (23-31); Chloride 110 mmol/L (98-107); Estimated GFR-MDRD 15; Globulin 2.4 g/dL (2.4-3.5); Glucose 95 mg/dL (83-110); Lipase 15 U/L (8-78); Potassium 3.9 mmol/L (3.5-5.1); Protein, Total 6.8 g/dL (6.0-8.3); Sodium 140 mmol/L (136-145)
[2019-02-18] MEDS ORDERED: Morphine 2 MG/ML SYRINGE ONE ×3 (07:47→17:09)
[2019-02-18] MEDS ORDERED: HYDROcodone/Acetaminophen 10/325 mg Tablet PO PRN (10:58)
[2019-02-18] MEDS ORDERED: Acetaminophen 325 MG TAB PO PRN (10:58)
--- NOTE | 2019-02-18 11:39 | PDOC.EVN ---
Event Note - Event Note Event Note: Attempted to reach the patient's son, but only reached voicemail.
--- NOTE | 2019-02-18 14:58 | HP ---
CHIEF COMPLAINT: Back pain. HISTORY OF PRESENT ILLNESS: This patient is an 88-year-old female with a longstanding history of chronic back pain. The patient was seen in the emergency department on Monday with complaints of back pain. She was discharged. However, she came back with worsening back pain and was noted to have positive urine cultures from the previous visit. The patient reports that the pain is similar to her chronic pain, only more severe at this time. It has been worse over the past 3 to 4 days and gradually increasing. It is described as a dull ache in nature, primarily in the left lower back area. This morning, it was as high as a 10/10, at the time of exam was a 7/10. The patient tried Tylenol, but did not get any relief from this. Her medication list is not entirely clear at this point, but it appears she has [place] as well. She does admit to a little dysuria, but denies any fevers, chills, or difficulties with urinating or bowel habits. Denies nausea or vomiting. Denies any recent falls or trauma. PAST MEDICAL HISTORY: Notable for gastroesophageal reflux; anemia; hypertension; hyperlipidemia; osteoporosis; hypothyroidism; COPD; chronic kidney disease, which appears to be stage IV; prior kidney stones; history of DVT in left lower extremity; and chronic back pain. Of note, the patient was admitted here in November of this year with flank pain as well. It is also noted that the patient has had Pseudomonas growing on eight consecutive urine cultures. PAST PSYCHIATRIC HISTORY: Anxiety and depression. PAST SURGICAL HISTORY: Cholecystectomy, appendectomy, hysterectomy, tonsillectomy, right hip replacement, ureteral stents in 2018, left hip repair, and pacemaker. SOCIAL HISTORY: Former smoker, quit over 10 years ago. She was at [facility]. She has rare alcohol use. No drugs. She has six children. She is full code and her son, Ananth, would be her surrogate decision maker should that become necessary. ALLERGIES: NONE. CURRENT MEDICATIONS: The patient does not know her medications and it appears at this point that we have not received a list from [facility], although we are endeavoring to get that at this time. It appears as though she is on 1. Levothyroxine 125 mcg daily. 2. VESIcare 5 mg daily. 3. Alprazolam 0.25 mg daily. 4. Amlodipine 5 mg daily. 5. Theragran one p.o. daily. 6. Vitamin D 1000 units daily. 7. Trazodone 50 mg q.h.s. 8. Eliquis 2.5 b.i.d. 9. Famotidine 20 mg b.i.d. 10. Ferrous sulfate 325 daily. 11. Lasix 20 mg b.i.d. 12. Potassium 10 mEq daily. 13. Claritin 10 mg daily. 14. Tylenol p.r.n. 15. Polyethylene glycol p.r.n. 16. [place] 10 p.r.n. 17. Milk of magnesia p.r.n. 18. Zofran p.r.n. PHYSICAL EXAMINATION: VITAL SIGNS: Temperature 140/69, pulse 84, respirations 16, temperature is 97.6, O2 saturation 92% on room air. GENERAL APPEARANCE: Age-appropriate female. She is pleasant and cooperative. She is in no significant distress, although she frequently lurches and grimaces having pain related to her back, and she requested 5 times during our conversation for something for her back pain. HEENT: Pupils very slightly constricted, but reactive. She has no OP lesion. She has some poor dentition. NECK: Supple and symmetric. HEART: Regular rate and rhythm. No murmurs, gallops, or rubs. LUNGS: Clear to auscultation bilaterally with no wheezes or rales. Slightly diminished throughout. ABDOMEN: Soft, nontender, and nondistended. Of note, the patient continues to keep her hands on my wrist as I examined her and frequently will pull them away out of fear that she is going to have some pain, which appears to be related to her back, but there does not appear to be any tenderness in the abdomen or pelvis itself. EXTREMITIES: There was no cyanosis, clubbing, or edema. She has fair peripheral pulses. PSYCH: The patient does appear a bit anxious and may be a little histrionic. NEUROLOGIC: She appears intact with no focal deficits. LABORATORY DATA: White count 5.9, hemoglobin 13.9, and platelets 276. Sodium 140, potassium 3.9, chloride 110, CO2 of 14, BUN 75, creatinine is 2.93, GFR is 15, calcium is 10.6. LFTs normal. Albumin 4.4. Urinalysis shows extra turbid urine with trace protein and ketones, 1+ blood, 500 leukocyte esterase, greater than 50 red cells, greater than 50 white cells, negative nitrites, and 1+ bacteria. CT abdomen and pelvis shows grossly stable kidneys with bilateral calcifications and parenchymal atrophy. No hydronephrosis. Constipation is noted. Redemonstration of multiple compression deformities of the spine. IMPRESSION AND PLAN: 1. Acute on chronic renal failure. The patient has chronic stage 4 kidney disease. She is now presenting with worsening GFR with apparent prerenal indices. She is on Lasix regularly, it appears from her medication list, we will discontinue that. We will give her some hydration and ask Dr. Carroll to see her. She reports she has seen Dr. Carroll in the past. 2. Hypercalcemia, suspect related to mild dehydration. We will continue to monitor with hydration. 3. Chronic kidney disease, stage 4. 4. Chronic back pain. The patient has multiple compression deformities of her back. It appears she has some worsening pain now, but according to her, it is similar to the pain she has had before, only more severe. I do not actually suspect this represents a pyelonephritis, but it is just an acute worsening of her chronic degenerative condition of the spine. We will give her pain medications. I asked Physical Therapy to see if there is anything they might be able to do to help with this situation, but unfortunately, it is going to be difficult to do anything definitive. 5. Possible pyelonephritis. The patient received 750 mg of Levaquin in the emergency department. I believe that is a significantly adequate dose for now given her renal function. Looking back at her prior culture, she has grown Pseudomonas multiple times, and I suspect this represents more of a colonization. She does not have fever. She does not have a significant leukocytosis. We will ask ID's opinion regarding the need to aggressively treat this. However, I suspect that we will not give any further antibiotics at this time. 6. History of atrial fibrillation. The patient appears to be in sinus rhythm at the time of my exam, looks like she has had a prior ablation. Looking through her old records, she is still on Eliquis, possibly related to her prior deep venous thromboses as well. We will continue that once we get confirmation of her medication list. 7. History of chronic obstructive pulmonary disease. She appears to be comfortable for now. We will give p.r.n. nebulizer treatments. 8. Hypothyroidism. We will continue usual home medications once clarified. Job ID: [id number]
[2019-02-18] MEDS ORDERED: HYDROcodone/Acetaminophen 10/325 mg Tablet ONE ×2 (15:16→19:16)
[2019-02-18] MEDS: Sodium Bicarbonate Tab 325 MG TAB PO SCH ×2 (15:19→21:22)
[2019-02-18] MEDS: HYDROcodone/Acetaminophen 10/325 mg Tablet PO PRN ×2 (15:20→19:34)
--- NOTE | 2019-02-18 15:47 | CON ---
DATE OF CONSULTATION: HISTORY OF PRESENT ILLNESS: Ms. Thapa is an 88-year-old white female with known history of chronic renal failure from hypertensive nephropathy and admitted for flank pain. CT scan of the abdomen done on February 18 showed bilateral calcification of parenchymal atrophy without overt hydronephrosis. She has also an incidental finding of multiple compression deformities of the spine. We are being consulted for acute kidney injury on top of her chronic renal failure. REVIEW OF SYSTEMS: Positive for flank pain. Denies any chest pain. Occasional back pain. No shortness of breath. No gross hematuria. No dysuria. No urinary frequency. No abdominal pain. No nausea. No vomiting. Decreased appetite. Decreased energy level. Occasional flank pain. No hematochezia. No melena. No hematemesis. MEDICATIONS: Based on the last medical records from the ER shows the following; 1. Levothyroxine 112 mcg daily. 2. VESIcare 5 mg once a day. 3. Xanax 0.25 mg once a day. 4. Amlodipine 5 mg once a day. 5. Trazodone 50 mg daily. 6. Eliquis 2.5 mg b.i.d. 7. Famotidine 20 mg once a day. 8. Ferrous sulfate 325 mg daily. 9. Furosemide 20 mg once a day. 10. KCl 20 mEq once a day. 11. Claritin p.r.n. 12. MiraLAX 17 g daily. 13. [place] p.r.n. 14. Zofran 4 mg q.6 as needed. PAST MEDICAL HISTORY: 1. Chronic renal failure from hypertensive nephropathy. 2. Hypothyroidism. 3. Status post paroxysmal AFib. 4. Chronic pain. 5. Longstanding hypertension. 6. Chronic anemia. 7. Osteoporosis. 8. Status post DVT of left lower extremity. 9. Status post hyponatremia. 10. COPD. PAST SURGICAL HISTORY: Status post upper and lower GI endoscopy, status post right hip joint replacement, status post tonsillectomy, and status post hysterectomy. SOCIAL HISTORY: The patient is a resident of [facility]. 6 children. She is . Smoked for 30 to 40 years, three-fourths pack. Alcohol rarely. No drug abuse. Status post blood transfusion. Retired employee for a [employer]. TRAUMA: Status post pelvic fracture. ALLERGIES: NONE. IMMUNIZATIONS: Up-to-date. HOSPITALIZATIONS: Please see past medical history. FAMILY HISTORY: No family history of ESRD. PHYSICAL EXAMINATION: VITAL SIGNS: Blood pressure 129/80, heart rate 70. GENERAL: The patient is awake, somewhat confused, not in overt distress. SKIN: Decreased turgor. HEENT: She has pinkish conjunctivae. Anicteric sclerae. NECK: No neck mass. No carotid bruits. No JVD. CHEST: No deformities. LUNGS: Decreased breath sounds. No wheezing. No crackles. HEART: Normal sinus rhythm. No murmur. No gallops. No rubs. ABDOMEN: Globular, soft, and nontender. No masses. EXTREMITIES: No edema. No deformities. NEUROLOGICAL: Awake, oriented to 2 spheres. No tremors. No asterixis. LABORATORY DATA: Laboratories of February 18, 2019; white count 5.9, hemoglobin 13.9. Sodium 140, potassium 3.9, chloride 110, carbon dioxide 14, BUN 75, creatinine 2.93, glucose 95, calcium 10.6, AST 26, and ALT is 36. IMAGING DATA: CT scan of the abdomen and pelvis, atrophic kidneys. No obstruction noted. ASSESSMENT AND PLAN: 1. Acute kidney injury on top of her chronic renal failure, consider hemodynamically-mediated renal dysfunction. The patient was taking diuretics at the group home. In addition, she has had decreased p.o. intake in the last several days. Agree with empiric volume repletion. Consider starting this patient on normal saline at 100 mL/h. No indication for any dialytic intervention. Continue current management. 2. Metabolic acidosis. Consider starting sodium bicarbonate 325 mg to 650 mg one tablet t.i.d. with meals. For the moment, agree with current management. Continue supportive care. Continue IV hydration. Job ID: [id number]
[2019-02-18] MEDS: Sodium Chloride 0.9% 1,000 ML IV SCH (15:53)
[2019-02-18 20:25] VITALS: BMI 18.3
[2019-02-18] MEDS: Famotidine 20 MG TAB PO SCH (21:22)
[2019-02-19] MEDS: HYDROcodone/Acetaminophen 10/325 mg Tablet PO PRN ×5 (00:16→23:30)
[2019-02-19] MEDS ORDERED: Prevnar 13-Val Conj/PF 0.5 ML SYRINGE IM ONE (00:45)
[2019-02-19] MEDS: Sodium Chloride 0.9% 1,000 ML IV SCH ×2 (05:28→16:43)
[2019-02-19 06:03] LABS: ALT (SGPT) 28 U/L (8-55); AST (SGOT) 26 U/L (5-34); Albumin 3.8 g/dL (3.4-4.8); Alkaline Phosphatase 61 U/L (40-150); Anion Gap 12 mmol/L (10-20); BUN (Urea Nitrogen) 61 mg/dL (9.8-20.1); Bilirubin, Total 0.4 mg/dL (0.2-1.2); Calc. Creatinine Clearance 12 mL/min (70-130); Calcium 9.5 mg/dL (7.8-10.44); Carbon Dioxide 19 mmol/L (23-31); Chloride 117 mmol/L (98-107); Estimated GFR-MDRD 21; Globulin 2.1 g/dL (2.4-3.5); Glucose 83 mg/dL (83-110); Potassium 4.2 mmol/L (3.5-5.1); Protein, Total 5.9 g/dL (6.0-8.3); Sodium 144 mmol/L (136-145)
[2019-02-19 06:23] LABS: #Eosinphils 0.3 thou/uL (0.0-0.7); #Lymphocytes 1.5 thou/uL (1.20-3.40); #Monocytes 0.5 thou/uL (0.11-0.59); #Neutrophils 4.2 thou/uL (1.40-6.50); %Basophils 0.6 % (0.0-1.0); %Eosinophils 5.1 % (0.0-10.0); %Lymphocytes 22.8 % (21.0-51.0); %Monocytes 6.9 % (0.0-10.0); %Neutrophils 64.6 % (42.0-75.0); Hemoglobin 12.5 g/dL (12.0-16.0); MDiff Complete? YES; Macrocytosis MODERATE=16-30 cells (100X) (0-5/hpf); Mean Corpuscular HGB CONC 32.7 g/dL (32.0-36.0); Mean Corpuscular Hemoglobin 34.5 pg (27.0-31.0); Mean Platelet Volume 7.9 fL (7.4-10.4); Platelet Count 235 thou/uL (130-400); RBC Distribution Width 13.6 % (11.5-14.5); Red Blood Cell (RBC) Count 3.62 mill/uL (4.20-5.40); White Blood Cell (WBC) Count 6.6 thou/uL (4.8-10.8)
[2019-02-19] MEDS: Sodium Bicarbonate Tab 325 MG TAB PO SCH ×3 (08:12→20:25)
--- NOTE | 2019-02-19 09:46 | PRG ---
DATE OF SERVICE: 02/19/2019 SUBJECTIVE: Ms. Thapa is an 88-year-old white female, who was seen by the renal service for acute kidney injury on top of her chronic renal failure. We felt that she had a hemodynamically-mediated renal dysfunction due to previous use of diuretics and decreased p.o. intake. IV hydration has been done. She is feeling a little better this morning, except complaining of diffuse joint pains. She denies any chest pain or shortness of breath. Please note, she has decreased hearing. OBJECTIVE: VITAL SIGNS: Blood pressure is noted at 126/66, heart rate 74, respiratory rate 16, temperature 97.6, and pulse ox 96%. GENERAL: Noted to be awake, alert, comfortable, not in distress. SKIN: Adequate turgor. HEENT: She has pinkish conjunctivae. Anicteric sclerae. NECK: No neck mass. No carotid bruits. No JVD. CHEST: No deformities. LUNGS: Clear breath sounds. No wheezing. No crackles. HEART: Normal sinus rhythm. No murmur. No gallops. No rubs. ABDOMEN: Globular, soft, and nontender. No masses. EXTREMITIES: No edema. No deformities. MEDICATIONS: Medications of 02/19/2019 were reviewed. LABORATORY DATA: On 02/19/2019: Sodium 144, potassium 4.2, chloride 117, carbon dioxide 19, BUN 61, and creatinine 2.26. AST 26, ALT 28, and albumin 3.8. ASSESSMENT AND PLAN: 1. Acute kidney injury on top of her chronic renal failure - superimposed prerenal azotemia. Continue current IV hydration. Creatinine slowly improving from 2.93 to 2.26. There is no indication for any dialytic intervention in this patient. 2. Metabolic acidosis. Continue sodium bicarbonate tablets. 3. Urinary tract infection - clinically asymptomatic; however, an ID consult with Dr. Lipscomb has been done. We will recheck basic metabolic and CBC in a.m. Job ID: [id number]
--- NOTE | 2019-02-19 17:50 | CON ---
DATE OF CONSULTATION: 02/19/2019 REASON FOR CONSULTATION: Possible urinary tract infection. 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 Probably the stones on the right side have been colonized by Pseudomonas for the past many cultures. This organism has been isolated. She also has had permanently or persistently abnormal urinalysis with greater than 50 WBCs for probably at least two years now. In March last year, she was admitted with chest discomfort with ruled out acute coronary syndrome. In October 2018, she was admitted with the dyspnea, felt to be due to CHF. She also had pain in the chest area and abdominal region, felt to be without a specific diagnosis. In November of this year, she came in with back pain, which was described to musculoskeletal disorder. She had a CT of abdomen and pelvis, which showed stable abdomen and pelvis CT with osteoporosis and lumbar thoracic spine compression fractures. At this time, she was admitted because of back pain, which has been present for the past 3 days reportedly. The pain is severe and she cannot bear even light touch around the posterior left chest area. She even does not tolerate lying on the side because of pain and even the touch of the clothing and bed sheets will elicit marked pain that she does not tolerate. She denies any headaches. No change in visual symptoms. She has severe hearing impairment. She does not appear to have dyspnea and no abdominal pain, no genitourinary symptoms except for maybe mild dysuria. No diarrhea. No constipation. No change in neurological status. PAST MEDICAL HISTORY: Nephrolithiasis, prior obstruction requiring placement of a stent. The patient is not candidate for any other procedure to clear the stones according to Urology. 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 PAST SURGICAL HISTORY: Cholecystectomy, appendectomy, hysterectomy, right hip replacement, ureteral stent, pacemaker placement. SOCIAL HISTORY: Former smoker and no other significant findings. ALLERGIES: NONE. CURRENT MEDICATION LIST: Tylenol, [place], DuoNeb, and Pepcid. PHYSICAL EXAMINATION: VITAL SIGNS: T-max is normal. Other vital signs are normal. O2 saturation 98% . SKIN: Mild heel pressure damage very mild and also in the perineal presacral region without any ulceration. She has severe onychodystrophy, pretty much in all toenails and skin dryness. She has a peripheral IV access and is urinating in the diaper. Evidence of cachexia. No lymphadenopathy. HEENT: Sclerae are white. Pupils are equal. Conjugate eye movements. Oral cavity with few remaining teeth. NECK: Supple. No jugular vein distention. LUNGS: Symmetric air entry. She could not tolerate even that I placed a stethoscope in the area of the chest posteriorly left side because of the pain elicited HEART: Showed S1 and S2 with diminished heart sounds. No S3 or S4. Pacemaker pocket site is normal. ABDOMEN: Soft, flat, not distended or tender. No ascites. No bladder distention. No organomegaly. Bowel sounds are normal. EXTREMITIES: Some osteoarthrosis. No edema. Pulses are diminished in dorsalis pedis. Plantar responses are flexor. No clonus. The hearing impairment hinders communication, but she seems to be oriented. The pain is the main concern and pretty much focused all the time on the left posterior chest wall pain and does not seem to be able to get comfortable in any position, but certainly cannot lay on top of her back because of the what appears to be neuralgic pain. LABORATORY DATA: White cell count 5.9, hemoglobin 13, and platelets are 276 with normal differential. Sodium 140, creatinine 2.93, and the urinalysis with greater than 50 wbc's. Cultures with P aeruginosa and group B strep greater than 100, 000 each. In terms of imaging studies, there is an abdomen and pelvis CT which showed stable kidneys, parenchymal atrophy, and bilateral calcifications, bigger on the right side. No hydronephrosis. Multiple compression deformities of the imaged spine. Bone scan nuclear medicine increased radiotracer localization at T7-L1 level compatible with known compression fractures. She had a chest CT in July of last year, which showed vascular calcifications. No pericardial effusions, a few nodules, and multiple compression deformities of the thoracic spine. ASSESSMENT: 1. Severe hearing impairment, chronic obstructive pulmonary disease, osteoporosis with multiple spine compression fractures, persistent left lateral posterior chest wall pain, which has the characteristic of radiculopathic pain with hyperesthesia and allodynia. 2. Abnormal urinalysis with positive urine cultures. DISCUSSION: The reason for patient's admission is the posterior chest wall hyperalgesia and allodynia. This symptom is elicited even by stimuli that otherwise are not noxious and should not be associated with any pain sensation. This leads me to believe that she has a radiculopathy associated with the compression of the nerve root of the respective dermatome, probably from the compression fractures. May consider a CT of the spine, thoracic spine specifically and then Pain Medicine consultation for management. The urinary abnormalities have in the past been associated with invasive urinary tract infections, but at this time, she has no obstruction and I do not think she has an invasive UTI and I would not recommend treatment for the finding at this point in time. Job ID: [id number] MTDD
--- NOTE | 2019-02-19 19:46 | CT ---
CT THORACIC SPINE WITH CORONAL AND SAGITTAL REFORMATIONS: 02/19/19 HISTORY: Compression fractures, radiculopathy. COMPARISON: CT thoracic spine of 08/23/18. CT stone protocol of 02/18/19. FINDINGS: Multilevel compression deformities of the thoracic vertebrae are redemonstrated. Mild retropulsion of bone at T3, T7, T11, and T12 vertebrae are again noted. The multilevel compression deformities susi in grossly stable. There is prominent kyphosis of the thoracic spine. Calcifications in the kidneys are again seen. There are vascular calcifications present. A hiatal her monica is noted. IMPRESSION: Multilevel compression deformities with thoracic kyphosis, stable since 08/23/18. POS: [facility]
--- NOTE | 2019-02-19 20:16 | PDOC.PN ---
- Subjective Encounter Start Date: 02/19/19 Encounter Start Time: 11:00 About the same. Still complains of back pain. - Objective Resuscitation Status - Order Detail: 02/18/19 10:58 Resuscitation Status Routine Resuscitation Status: FULL: Full Resuscitation Vital Signs & Weight: Vital Signs (12 hours) Temp Pulse Resp BP Pulse Ox 02/19/19 16:25 98.0 F 81 16 116/65 95 02/19/19 11:25 97.8 F 85 16 127/59 L 95 Weight Admit Weight 94 lb Weight 94 lb Result Diagrams: 02/19/19 04:42 02/19/19 04:42 Phys Exam - Physical Examination Grimaces frequently in apparent pain. Respiratory: no wheezing, no rales, no rhonchi Cardiovascular: RRR, no significant murmur Gastrointestinal: soft, non-tender, no distention, positive bowel sounds Musculoskeletal: no edema Neurological: non-focal Dx/Plan (1) Vertebral compression fracture Code(s): M48.50XA - COLLAPSED VERTEBRA, NEC, SITE UNSP, INIT Status: Acute (2) Chronic pain syndrome Code(s): G89.4 - CHRONIC PAIN SYNDROME Status: Acute (3) Acute left flank pain Code(s): R10.9 - UNSPECIFIED ABDOMINAL PAIN Status: Acute (4) Opioid dependence Code(s): F11.20 - OPIOID DEPENDENCE, UNCOMPLICATED Status: Acute Comment: The patient's son confirmed today that the patient has an opioid dependence and her abdominal pain is the primary source of her acquiring the opioids. Dr. Chinchilla confirmed this as well. The patient follows with Dr. Shrestha for pain management. (5) Anxiety and depression Code(s): F41.9 - ANXIETY DISORDER, UNSPECIFIED; F32.9 - MAJOR DEPRESSIVE DISORDER, SINGLE EPISODE, UNSPECIFIED Status: Chronic (6) Atrial fibrillation Code(s): I48.91 - UNSPECIFIED ATRIAL FIBRILLATION Status: Chronic Comment: On Eliquis. Has good rate control. Now in NSR. Has PPM. (7) CKD (chronic kidney disease), stage III Code(s): N18.3 - CHRONIC KIDNEY DISEASE, STAGE 3 (MODERATE) Status: Chronic Comment: Stable creat now. Discussed with Nephrology. OK to discharge. (8) COPD (chronic obstructive pulmonary disease) Status: Chronic Qualifiers: COPD type: emphysema Comment: No evidence of COPD exacerbation, O2 prn, Duonebs, add Dulera 2 puffs BID (9) GERD (gastroesophageal reflux disease) Code(s): K21.9 - GASTRO-ESOPHAGEAL REFLUX DISEASE WITHOUT ESOPHAGITIS Status: Chronic Qualifiers: Esophagitis presence: without esophagitis Qualified Code(s): K21.9 - Gastro -esophageal reflux disease without esophagitis (10) HTN (hypertension) Code(s): I10 - ESSENTIAL (PRIMARY) HYPERTENSION Status: Chronic Qualifiers: Hypertension type: essential hypertension Qualified Code(s): I10 - Essential (primary) hypertension Comment: Continue Diltiazem 240mg po daily, serial BP monitoring (11) Hypothyroidism Code(s): E03.9 - HYPOTHYROIDISM, UNSPECIFIED Status: Chronic Qualifiers: Hypothyroidism type: acquired Qualified Code(s): E03.9 - Hypothyroidism, unspecified (12) Acute renal failure superimposed on stage 3 chronic kidney disease Code(s): N17.9 - ACUTE KIDNEY FAILURE, UNSPECIFIED; N18.3 - CHRONIC KIDNEY DISEASE, STAGE 3 (MODERATE) Status: Acute Comment: creatinine improved back to baseline today, resume home furosemide - Plan * Chronic pain related to diffuse compression fractures of the spine. * Does not appear to have a normal vertebral body in the spine. * Appears to be behaving in the same manner that I remember from prior encounters. * Always seems to complain of pain. * CM spoke with her son Ananth. He indicated that he would have her follow up with Dr. Shrestha on discharge. He understands that there is nothing that can be done her to advance the treatment of her chronic pain. * Nurse discussed with the patient's facility and confirmed this is the baseline behavior. * ID consult P. * Anticipate Discharge soon with no abx. * Renal function is improved.
[2019-02-19] MEDS: Famotidine 20 MG TAB PO SCH (20:25)
[2019-02-20] MEDS: HYDROcodone/Acetaminophen 10/325 mg Tablet PO PRN ×2 (04:14→08:10)
[2019-02-20 07:06] LABS: Anion Gap 13 mmol/L (10-20); BUN (Urea Nitrogen) 47 mg/dL (9.8-20.1); Calc. Creatinine Clearance 16 mL/min (70-130); Calcium 8.7 mg/dL (7.8-10.44); Carbon Dioxide 17 mmol/L (23-31); Chloride 120 mmol/L (98-107); Estimated GFR-MDRD 28; Glucose 77 mg/dL (83-110); Potassium 3.7 mmol/L (3.5-5.1); Sodium 146 mmol/L (136-145)
[2019-02-20 07:20] LABS: #Eosinphils 0.4 thou/uL (0.0-0.7); #Lymphocytes 1.7 thou/uL (1.20-3.40); #Monocytes 0.8 thou/uL (0.11-0.59); #Neutrophils 5.8 thou/uL (1.40-6.50); %Basophils 0.1 % (0.0-1.0); %Lymphocytes 19.5 % (21.0-51.0); %Monocytes 8.7 % (0.0-10.0); %Neutrophils 66.7 % (42.0-75.0); Hemoglobin 12.2 g/dL (12.0-16.0); Mean Corpuscular HGB CONC 33.8 g/dL (32.0-36.0); Mean Corpuscular Hemoglobin 35.2 pg (27.0-31.0); Mean Platelet Volume 7.7 fL (7.4-10.4); Platelet Count 200 thou/uL (130-400); RBC Distribution Width 13.7 % (11.5-14.5); Red Blood Cell (RBC) Count 3.45 mill/uL (4.20-5.40); White Blood Cell (WBC) Count 8.7 thou/uL (4.8-10.8)
[2019-02-20] MEDS: Sodium Bicarbonate Tab 325 MG TAB PO SCH (08:10)
[2019-02-20] MEDS: Sodium Chloride 0.9% 1,000 ML IV SCH (10:27)
[2019-02-20 11:18] VITALS: BP 125/69; TEMP 98.1
--- NOTE | 2019-02-21 02:54 | DIS ---
DATE OF ADMISSION: 02/18/2019 DATE OF DISCHARGE: 02/20/2019 DISCHARGE DIAGNOSES: 1. Diffuse vertebral compression fractures. 2. Back pain. 3. Left flank pain. 4. Opioid dependence. 5. Anxiety depression. 6. History of atrial fibrillation. 7. Chronic kidney disease. 8. Chronic obstructive pulmonary disease. 9. Gastroesophageal reflux disease. 10. Hypertension. 11. Hypothyroidism. 12. Acute renal failure superimposed on stage 3 chronic kidney disease. HISTORY OF PRESENT ILLNESS: This patient is an 88-year-old female who presented from her AL facility with back pain. The patient had been seen in the emergency department on Monday with similar. She was subsequently discharged. However, came back indicating her pain was worse. However, at that time, urine cultures from her Monday visit were positive with Pseudomonas and there was concern the patient had pyelonephritis. CT actually showed grossly stable kidneys with bilateral calcifications and parenchymal atrophy. Her BUN was 75 and creatinine was 2.93 with a GFR of 15, which was worse than her baseline. White count was 5.9. Urinalysis showed positive leukocyte esterase, greater than 50 red cells, greater than 50 white cells, negative nitrites, 1+ bacteria. HOSPITAL COURSE: The patient was admitted to the hospital initially having received antibiotics in the emergency department, however, was felt she likely did not have pyelonephritis. Given that she had no fever, no leukocytosis and her CAT scan showed no significant evidence of such, her imaging did confirm the severe chronic osteoporosis and diffuse compression fractures throughout the imaged portion of the spine. The patient had a long history of pain related to this, followed by Dr. Shrestha and was on chronic pain medications in order to address this. She subsequently was hydrated as well. Given her acute on chronic renal insufficiency, Dr. Carroll was consulted and Dr. Lipscomb was consulted. The patient's renal function improved with hydration. Dr. Lipscomb agreed the patient did not merit antibiotics at this time. The patient did occasionally receive small amounts of IV morphine to help manage her pain. However, it was felt that the patient's pain symptoms are consistent with her previous visits. The nurse contacted the nursing facility where she lives and confirmed that was largely her baseline. El Larios, the employment case manager spoke with her son, Ananth, who also understood that this was related to her chronic back situation and indicated he would try to get her to follow up with Dr. Shrestha here again to see if there was anything further that can be done. PHYSICAL EXAMINATION: VITAL SIGNS: On the day of discharge, temperature was 98.1, pulse 66, respirations 18, O2 saturation 96% on room air, BP is 125/69. GENERAL: The patient was awake and alert. She was pleasant and cooperative. She continued to grimace with any manipulation or movements indicating that she was having some pain, however, these were very brief. HEART: Regular. LUNGS: Clear. ABDOMEN: Benign. EXTREMITIES: With no edema. LABORATORY DATA: Her BUN was down to 47 and creatinine down to 1.73. Her sodium was slightly elevated at 146 and chloride was 120, felt to be related to her IV hydration and likely to normalize spontaneously once that has been discontinued. DISPOSITION: The patient is discharged back to the assisted living facility. She will continue her usual medications there with no additional. Her diet and activity level are unchanged. FOLLOWUP: She is to follow up with her PCP and Dr. Shrestha as indicated. DISCHARGE MEDICATIONS: 1. Trazodone 50 mg at bedtime. 2. Alprazolam 0.25 mg daily. 3. Multivitamin one p.o. daily. 4. Eliquis 2.5 mg b.i.d. 5. Ferrous sulfate 325 daily. 6. Famotidine 20 mg b.i.d. 7. Vitamin D3 1000 units daily. 8. Polyethylene glycol 17 g daily. 9. Tylenol p.r.n. 10. Milk of magnesia p.r.n. 11. Calcium with vitamin D3 daily. 12. DuoNeb p.r.n. 13. Florastor daily. 14. Lasix 20 mg b.i.d. 15. Potassium 10 mEq b.i.d. 16. Loratadine 10 mg daily. 17. Amlodipine 5 mg daily. 18. Levothyroxine 137 mcg daily. 19. Zofran p.r.n. 20. Dulcolax p.r.n. 21. Tolterodine 1 mg b.i.d. 22. Tamsulosin 0.4 mg at bedtime. 23. Clonidine one q.4 hours p.r.n. 24. [place] 10/325 q.6 p.r.n. TIME SPENT: Total time spent dedicated to discharge activities including [id number] time with the patient was 42 minutes. Job ID: [id number]
== END 2019-02-20 12:16 ==
LOC: ERS 05:56 → ERHOLD 10:41 → INTOOBSV 10:41 → T4-A 20:08
PROVIDERS: ADMIT Internal Medicine; ATTEND Internal Medicine
DX: M48.50XA Collapsed vertebra, not elsewhere classified, site unspecified, initial encounter for fracture (principal); E78.5 Hyperlipidemia, unspecified; M81.0 Age-related osteoporosis without current pathological fracture; E03.9 Hypothyroidism, unspecified; J44.9 Chronic obstructive pulmonary disease, unspecified; F41.8 Other specified anxiety disorders; I12.9 Hypertensive chronic kidney disease with stage 1 through stage 4 chronic kidney disease, or unspecified chronic kidney disease; N18.4 Chronic kidney disease, stage 4 (severe); D63.1 Anemia in chronic kidney disease; N17.9 Acute kidney failure, unspecified; E83.52 Hypercalcemia; I48.0 Paroxysmal atrial fibrillation; E87.2 Acidosis; M40.204 Unspecified kyphosis, thoracic region; M54.10 Radiculopathy, site unspecified; N39.0 Urinary tract infection, site not specified; F11.20 Opioid dependence, uncomplicated; K21.9 Gastro-esophageal reflux disease without esophagitis; Z86.718 Personal history of other venous thrombosis and embolism; Z87.891 Personal history of nicotine dependence; Z79.01 Long term (current) use of anticoagulants; Z79.899 Other long term (current) drug therapy; Z98.890 Other specified postprocedural states
CPT/HCPCS: 51701; 72128; 74176; 80048; 80053 ×2; 83690; 85025 ×3; 96361 ×4; 96365; 96366; 96375; 96376; 97139 ×3; 99285; G0378 ×2; 36415; 81003; 81015; A4353; J1956; J2270; J2405; J3475

== ENCOUNTER 2019-04-22 22:49 | Inpatient (IN) | payer MEDICARE ==
[2019-04-22] MEDS ORDERED: Ondansetron PF 4 MG/2 ML Vial ONE (23:32)
[2019-04-22 23:35] LABS: #Lymphocytes 0.8 thou/uL (1.20-3.40); #Monocytes 1.1 thou/uL (0.11-0.59); #Neutrophils 10.2 thou/uL (1.40-6.50); %Basophils 0.2 % (0.0-1.0); %Eosinophils 0.1 % (0.0-10.0); %Lymphocytes 6.3 % (21.0-51.0); %Monocytes 9.1 % (0.0-10.0); %Neutrophils 84.3 % (42.0-75.0); Hemoglobin 13.4 g/dL (12.0-16.0); Mean Corpuscular HGB CONC 32.7 g/dL (32.0-36.0); Mean Corpuscular Hemoglobin 34.2 pg (27.0-31.0); Mean Platelet Volume 8.7 fL (7.4-10.4); Platelet Count 203 thou/uL (130-400); RBC Distribution Width 12.3 % (11.5-14.5); Red Blood Cell (RBC) Count 3.91 mill/uL (4.20-5.40); White Blood Cell (WBC) Count 12.1 thou/uL (4.8-10.8)
[2019-04-22 23:59] LABS: ALT (SGPT) 16 U/L (8-55); AST (SGOT) 22 U/L (5-34); Albumin 4.6 g/dL (3.4-4.8); Alkaline Phosphatase 89 U/L (40-150); Anion Gap 19 mmol/L (10-20); BUN (Urea Nitrogen) 55 mg/dL (9.8-20.1); Bilirubin, Total 0.6 mg/dL (0.2-1.2); CK (CPK) 30 U/L (29-168); Calc. Creatinine Clearance 0 mL/min (70-130); Calcium 11.2 mg/dL (7.8-10.44); Carbon Dioxide 26 mmol/L (23-31); Chloride 101 mmol/L (98-107); Estimated GFR-MDRD 16; Globulin 2.7 g/dL (2.4-3.5); Glucose 133 mg/dL (83-110); Lipase 5 U/L (8-78); Potassium 4.7 mmol/L (3.5-5.1); Protein, Total 7.3 g/dL (6.0-8.3); Sodium 141 mmol/L (136-145)
[2019-04-23 00:25] LABS: Bacteria/HPF 1+ HPF (None Seen); Bilirubin Negative (Negative); Blood, Urine 1+ (Negative); Clarity Turbid (Clear); Glucose, Urine (Dipstick) Normal (Negative); Leukocyte 500 Leu/uL (Negative); Nitrite Negative (Negative); Protein, Urine (Dipstick) 20 mg/dL (Neg-Trace); Squamous Epithelial None Seen HPF (0-3); Urobilinogen Normal mg/dL (Less than 2); WBC/HPF Greater than 50 HPF (0-3)
--- NOTE | 2019-04-23 00:33 | RAD ---
RADIOGRAPH CHEST 1 VIEW: DATE: 04/22/2019 11:32 PM HISTORY: 88-year-old female with nausea and altered mental status. FINDINGS: There are no airspace densities, pulmonary edema, pneumothorax, or cardiomegaly. The lateral costophr enic angles are sharp. Dual lead left subclavian pacemaker. Kyphosis of thoracic spine. IMPRESSION: 1. No acute cardiopulmonary findings. 2. Pacemaker
[2019-04-23] MEDS ORDERED: cefTRIAXone\\ROCEPHIN 1 GM VIAL ONE ×2 (00:51→01:11)
[2019-04-23] MEDS ORDERED: MEROPENEM 1 GM/50 ML 1 GM in Premix Bag 1 BAG IVPB SCH ×2 (01:15→10:00)
[2019-04-23] MEDS ORDERED: Sodium Chloride 0.9% 1,000 ML IV SCH (02:34)
[2019-04-23] MEDS ORDERED: Ondansetron ODT 4 MG TAB SL PRN (02:34)
[2019-04-23] MEDS ORDERED: Ondansetron PF 4 MG/2 ML Vial IVP PRN (02:34)
[2019-04-23] MEDS: Acetaminophen/Codeine 30-300mg Tablet PO PRN ×3 (03:10→16:36)
--- NOTE | 2019-04-23 07:44 | CT ---
PRELIMINARY REPORT/[facility]/AFTER HOURS PROCEDURE EXAM: CT Abdomen and Pelvis Without Contrast EXAM DATE/TIME: 04/23/2019 12:11 AM CLINICAL HISTORY: 88 years old, female; Abdominal pain; Prior surgery; Surgery type: Surgical history includes cholecystectomy, date of surgery March 2017, as listed, appendectomy, hysterectomy; Patient HX: FEdita presents to the ED via EMS with C/O nausea. EMS reports patient had mumbled speech so was hard to understand, was holding her stomach, reports abd pain TECHNIQUE: Imaging protocol: Computed tomography of the abdomen and pelvis without contrast. COMPARISON: No relevant prior studies available. FINDINGS: Lungs: There is bibasilar subsegmental atelectasis or parenchymal scarring. There is a calcified granuloma in the right lower lobe base. Liver: Normal. No mass. Gallbladder and bile ducts: There are postoperative changes of cholecystectomy. Pancreas: Normal. No ductal dilation. Spleen: Normal. No splenomegaly. Adrenals: Normal. No mass. Kidneys and ureters: There is a 6 mm calculus in the proximal right ureter with moderate right obstructive uropathy. There is additional nonobstructing bilateral nephrolithiasis. Stomach and bowel: Unremarkable. No obstruction. No mucosal thickening. Appendix: The appendix is not visualized. Intraperitoneal space: Unremarkable. No free air. No significant fluid collection. Vasculature: There are calcified phleboliths in the pelvis. Lymph nodes: Unremarkable. No enlarged lymph nodes. Bladder: Unremarkable as visualized. Reproductive: There are postoperative changes of hysterectomy. Bones/joints: There are postoperative changes of right total hip arthroplasty and postoperative change of ORIF involving the left femur. There is diffuse osteopenia. There is a chronic healed fracture of the left inferior pubic ramus. There are degenerative changes of the spine. There are chronic appearing compression fractures at every level of the lumbar spine. Soft tissues: Unremarkable. IMPRESSION: There is a 6 mm calculus in the proximal right ureter with moderate right obstructive uropathy. There is additional nonobstructing bilateral nephrolithiasis. Thank you for allowing us to participate in the care of your patient. Dictated and Authenticated by: Mohsen Muñoz MD 04/23/2019 1:17 AM Central Time ([place]) FINAL REPORT EMERGENT AFTER HOURS CT ABDOMEN AND PELVIS WITHOUT CONTRAST: HISTORY: Nausea, abdominal pain, and fever. COMPARISON: 02/18/2019 IMPRESSION: 1. Partially obstructing right proximal ureteral calculus measuring approximately 6 mm with resultan t moderate right hydronephrosis. 2. Nonobstructing bilateral renal calculi also seen on prior exam. 3. Exophytic hypodense right renal lesions which are difficult to characterize but statistically lik brie represent cysts. Hyperdense inferior pole left renal lesions are again noted. 4. Post cholecystectomy changes. 5. Prominent vascular calcifications in the coronary arteries as well as involving the abdominal aor ta and iliac arteries. Mild cardiomegaly is present. 6. Constipation. 7. Multiple compression fractures/burst fractures involving the T11 through L5 vertebral bodies whic h were also seen on the study on 02/18/2019. 8. Post surgical changes bilateral hips. 9. Osteopenia. 10. Findings are in agreement with the preliminary report by [facility]. CODE QA Transcribed Date/Time: 04/23/2019 8:00 AM
[2019-04-23 07:55] VITALS: BMI 18.6
[2019-04-23] MEDS ORDERED: Iothalamate Meglumine 60% 50 ML VIAL FS ONE (09:59)
[2019-04-23] MEDS ORDERED: Fentanyl 100 MCG/2 ML VIAL ONE ×2 (10:18→11:39)
--- NOTE | 2019-04-23 11:23 | RAD ---
EXAM: XR IVP Retrograde PROVIDED CLINICAL HISTORY: Bilateral renal calculi and partially obstructing right proximal ureteral calculus. COMPARISON: CT abdomen and pelvis on 04/23/2019. FINDINGS/IMPRESSION: 4 intraoperative fluoroscopic images of the abdomen are provided. There is a partially obstructing pr oximal right ureteral calculus at the level of the L4 vertebral body noted on recent CT scan examination. Artifact overlies this region on the machinery erector image, and this calculus is not definitely vi sualized on the machinery erector image. Subsequent image demonstrates catheter within the distal right ureter with opacification of the right ureter and right renal collecting system. There is a filling defect s een at the level of the L4 vertebral body corresponding to the ureteral calculus on recent CT scan exam. The ureter proximal to this region is dilated with evidence of moderate right hydronephrosis. F inal image demonstrates a double pigtail right ureteral stent in place. Multiple compression fractures of the lower thoracic and lumbar vertebral bodies are noted. Vascular calcifications are se en in the abdominal aorta and involving the iliac arteries. Postsurgical changes of each hip are partially imaged. Correlation with intraoperative findings is recommended.
[2019-04-23] MEDS ORDERED: Bisacodyl 10 MG SUPP PR PRN ×2 (11:24→11:38)
[2019-04-23] MEDS ORDERED: Phenazopyridine HCl 97.5 MG TABLET PO PRN (11:24)
[2019-04-23] MEDS ORDERED: cloNIDine 0.1 MG TAB PO PRN (11:38)
[2019-04-23] MEDS ORDERED: Ondansetron ODT 4 MG TAB PO PRN (11:38)
[2019-04-23] MEDS ORDERED: Milk Of Magnesia 30 ML UDCUP PO PRN (11:38)
[2019-04-23] MEDS: HYDROcodone/Acetaminophen 10/325 mg Tablet PO PRN (14:41)
[2019-04-23] MEDS ORDERED: Dexamethasone 20 MG/5 ML VIAL ONE (15:33)
[2019-04-23] MEDS ORDERED: Lidocaine 1% PF 5 ML VIAL ONE (15:33)
[2019-04-23] MEDS ORDERED: PHENYLEPHRINE-NS 100 MCG/ML 10 ML SYRINGE ONE (15:33)
[2019-04-23] MEDS ORDERED: PROPOFOL 200 MG/20 ML VIAL ONE (15:33)
[2019-04-23] MEDS ORDERED: Ondansetron PF 4 MG/2 ML Vial ONE (15:33)
[2019-04-23] MEDS ORDERED: ePHEDrine 50 MG/ML VIAL ONE (15:33)
--- NOTE | 2019-04-23 16:05 | HP ---
PRIMARY CARE PROVIDER: Devi Cardenas MD CHIEF COMPLAINT: Abdominal pain. HISTORY OF PRESENT ILLNESS: Ms. Thapa is a pleasant 88-year-old lady, who was seen at [facility] on April 23, 2019. She was hospitalized at this facility from February 18 to of this year for diffuse vertebral compression fractures and back pain. The patient is able to provide minimal history. Collateral history was obtained from discussion with the patient's son by the bedside, review of medical records , and discussion with emergency room physician. The patient is a resident at [facility]. She usually ambulates with a walker. She reportedly started having abdominal pain around 10:40 p.m. yesterday. The pain was dull, across her lower abdomen. The patient denies any dysuria or change in frequency of urination. She reportedly had a temperature of 100.6 degrees Fahrenheit according to EMS. The patient denies any chest pain or shortness of breath. She reports that the abdominal pain is better. REVIEW OF SYSTEMS: All systems were reviewed and found to be negative except for the pertinent positives mentioned above. PAST MEDICAL HISTORY: Gastroesophageal reflux disease, anemia, hypertension, dyslipidemia, osteoporosis, hypothyroidism, COPD, chronic kidney disease, nephrolithiasis, DVT, chronic back pain, and vertebral compression fractures. PSYCHIATRIC HISTORY: Anxiety and depression. PAST SURGICAL HISTORY: Cholecystectomy, appendectomy, hysterectomy, tonsillectomy, right hip replacement, ureteral stents, left hip repair, and pacemaker. SOCIAL HISTORY: The patient denies any tobacco use or recreational drug use. Rare alcohol use. CODE STATUS: I discussed her code status. She is full code. Her son, Ananth, is her surrogate decision maker. ALLERGIES: NONE. CURRENT MEDICATIONS: As dictated by Dr. Dorman in his discharge summary, dated February 20, 2019. FAMILY HISTORY: No family history of premature coronary artery disease. PHYSICAL EXAMINATION: GENERAL: Ms. Thapa is awake and alert, not in acute distress. VITAL SIGNS: Blood pressure is 151/87, pulse 94, respiratory rate 12, and oxygen saturation 93% on room air. She is afebrile. EYES: No scleral icterus. No conjunctival pallor. ENT: Moist mucosal membranes. No oropharyngeal erythema or exudates. NECK: Supple, nontender. Trachea is midline. RESPIRATORY: Accessory muscles of breathing are not active. Chest wall movements are symmetric bilaterally. Lungs are clear to auscultation without wheeze, rhonchi, or crepitations. CARDIOVASCULAR: S1 and S2 are heard, regular. Peripheral pulses palpable. No carotid bruit. No pericardial rub. ABDOMEN: Soft, mild tenderness over both lower quadrants, no guarding or rigidity. Bowel sounds heard. NEUROLOGIC: Cranial nerves 2 through 12 are intact. MUSCULOSKELETAL: The patient is moving all 4 extremities. SKIN: No rashes or subcutaneous nodules. LYMPHATIC: No cervical lymphadenopathy. PSYCHIATRIC: Normal mood. Normal affect. The patient is oriented to person and place, not to time. LABORATORY DATA: Ms. Thapa's labs and investigations were reviewed. She had CT scan of the abdomen and pelvis without contrast, which showed 6 mm calculus in the proximal right ureter with moderate right obstructive uropathy. She also has additional nonobstructing bilateral nephrolithiasis. She has leukocytosis with 12,100 white cells, of which 84.3% are neutrophils. Hemoglobin and platelet count are normal. She has normal electrolytes, elevated blood urea nitrogen of 55, elevated creatinine of 2.80, creatinine was 2.00 on February 28, 2019, mildly elevated calcium of 11.2, unremarkable LFTs, and urinalysis that is positive for leukocyte esterase. ASSESSMENT AND PLAN: Ms. Thapa is a pleasant 88-year-old lady, who was seen at [facility] on April 23, 2019. Her problem list includes : 1. Sepsis: Ms. Thapa was tachypneic in the emergency room. She also has leukocytosis and source of infection in the urinary tract. She will be admitted to the hospital for further management. 2. Urinary tract infection: She has evidence of urinary tract infection along with nephrolithiasis. She has been started on meropenem, which I will continue. We will consult Infectious Disease Service for opinion and help with management. 3. Obstructive uropathy: She has right-sided hydronephrosis. Urology Service is being consulted for opinion and help with management. 4. Hypertension: Resume home medications, monitor vital signs and titrate antihypertensives as needed. 5. Hypothyroidism: Continue levothyroxine. 6. Anxiety and depression: Moderate, stable. 7. Chronic obstructive pulmonary disease: Stable. 8. Gastroesophageal reflux disease: Stable. Many thanks for allowing me to participate in your patient's care. Please feel free to contact me with any questions or concerns. LEVEL OF RISK: Moderate. LEVEL OF COMPLEXITY: Moderate. Job ID: [id number] [facility]
--- NOTE | 2019-04-23 16:29 | CON ---
DATE OF CONSULTATION: 04/23/2019 REASON FOR CONSULT: Right ureteral calculi. HISTORY OF PRESENT ILLNESS: Ms. Thapa is an 88-year-old female, G6, P6, resident at the [facility], whom I had seen as an initial consult covering for Dr. Forbes. She has a history of recurrent kidney stones, bilateral stone burden, history of VRE urosepsis, advanced age, and frail nature. She also has a history of narcotic dependence, followed by Dr. Shrestha. She has had multiple CTs of record, as she complains of chronic pain. As stones were nonobstructing, they are managed conservatively. On this admission, CT was obtained, demonstrating obstructing right proximal ureteral calculi measuring 6 mm. Her recent urine culture demonstrates Pseudomonas, Enterococcus with multiple urine cultures demonstrating Pseudomonas in the past. Currently, she is afebrile, son at bedside. Vital signs stable. PAST MEDICAL HISTORY: Includes hypertension, followed by Dr. Soto; arthritis; major depressive disorder; history of pelvic fracture; history of recurrent UTI; deconditioning; anemia; COPD; multiple fractures; history of recurrent kidney stone; advanced age; deconditioned status; syncope; history of hypokalemia; GERD; esophagitis; chronic kidney disease, stage 3, followed by Dr. Lehman; generalized anxiety disorder; prior history of EF on echocardiogram 50% to 55%. SURGICAL HISTORY: 1. CABG. 2. Knee replacement. 3. Hysterectomy. 4. Pacemaker. 5. Laparoscopic cholecystectomy. 6. Cysto and right stent, Dr. Forbes on April 08, 2016. 7. Ureteroscopy, laser lithotripsy, Dr. Forbes in March 2017. 8. Cysto and right stent in August 2017. 9. On October 16, 2017, right ureteroscopy, laser lithotripsy, stent exchange. 10. Right stent removal, Dr. Forbes in October 2017. 11. Cardioversion, Dr. Soto in December 2017. 12. Cysto, bilateral retrograde, bilateral 6 x 24 stent in December 2017. 13. In January 2018, cysto, bilateral retrograde, bilateral stent exchange, bilateral ureteroscopy, pyeloscopy. 14. Cysto and bilateral stent in January 2018. SOCIAL HISTORY: No tobacco abuse. Occasional alcohol. She is retired and , son at bedside. CURRENT MEDICATIONS: Include; 1. Meropenem. 2. Tylenol No. 3. 3. Zofran. ALLERGIES: NO KNOWN DRUG ALLERGIES. PHYSICAL EXAMINATION: VITAL SIGNS: Stable. She is afebrile, however, hypertensive at 179/101, however, she did not take her blood pressure medication. GENERAL: The patient is an elderly, cachectic, frail female. HEENT: Grossly unremarkable. HEART: Regular rate. LUNGS: Decreased inspiratory effort. ABDOMEN: Soft. No rigidity. No rebound. Subjective area discomfort in the right lower quadrant. : Deferred at this time. EXTREMITIES: No cyanosis, clubbing, or edema. PERTINENT LABS AND IMAGING: White count 12, hemoglobin 13, platelets 203. Creatinine 2.8, baseline creatinine 1.9 to 2.7. Recent urine culture demonstrates Enterococcus, Pseudomonas sensitive to meropenem. UA on April 23 demonstrates 500 leukocytes, 7 to 10 rbc's, greater than 50 wbc's, 1+ bacteria. Recent urine culture on April 02, in which no epithelials are seen, demonstrating Enterococcus and Pseudomonas, on appropriate antibiotic regimen. CT of the abdomen and pelvis stone protocol reviewed, which I personally reviewed myself, demonstrates right hydronephrosis due to 6 mm right proximal ureteral calculi at the level of L4 ureter. There is a dystrophic calcification in the right lower pole with parenchymal thinning, right mid pole calcific density measuring about 15 mm, also appears to be dystrophic, parenchymal based. Left kidney is atrophic with punctate left lower pole renal calculi. Official read also demonstrates constipation, exophytic right hypodense renal cyst, hyperdense left lower pole renal cyst. Last CT of comparison in June 2018, demonstrates stable bilateral renal calculi with no evidence of hydronephrosis. IMPRESSION AND PLAN: 1. Ms. Thapa is an 88-year-old female with multiple medical comorbidities as above. 2. Narcotic dependence, followed by Dr. Shrestha. 3. Recurrent kidney stone. Current admission due to right flank pain with positive urine culture, proximal right obstructing ureteral calculi. The patient on the schedule for cysto, right ureteral stent placement. Discussed with son in detail, who is the power of deputy commonwealth's attorney regarding elective ureteroscopy and laser lithotripsy when culture negative in few weeks. Risks and complications of stent retrograde reviewed, including sepsis, infection, injury to adjacent organs. The patient' s son desires for me to proceed. Job ID: [id number] [facility]
--- NOTE | 2019-04-23 17:48 | OP ---
DATE OF PROCEDURE: 04/23/2019 PREOPERATIVE DIAGNOSES: 1. An 88-year-old female with narcotic dependence, history of recurrent kidney stone, admitted for right proximal ureteral calculi with hydronephrosis. 2. Urinary tract infection. POSTOPERATIVE DIAGNOSES: 1. An 88-year-old female with narcotic dependence, history of recurrent kidney stone, admitted for right proximal ureteral calculi with hydronephrosis. 2. Urinary tract infection. PROCEDURE PERFORMED: Cystoscopy, right retrograde pyelogram, 6 x 24 double-J ureteral stent placement with distal tail in situ, 18-Egyptian Pompa catheter placement. ANESTHESIA: General. COMPLICATIONS: None apparent. DISPOSITION: To recovery room in stable condition. INTRAOPERATIVE FINDINGS: 1. Sedimentous debris in the bladder consistent with cystitis, pyocystitis. 2. Right retrograde demonstrating hydronephrosis. Multiple pelvic phleboliths. Filling defect in the right proximal ureter consistent with the CT at the level of L3-L4 ureter consistent with ureteral calculi. INDICATIONS FOR THE PROCEDURE AND HISTORY: Ms. Thapa is an 88-year-old female, narcotic dependent with chronic back pain, presents for evaluation of right flank pain. CT demonstrates obstructing right proximal ureteral calculi. Recent urine culture positive on appropriate antibiotic therapy. She presents for cysto, stent placement. Discussed with son regarding indications as this is a recurring event and he desires for us to proceed. Risks and complications including, but not limited to, bleeding, pain, infection, urosepsis, and ureteral, bladder, kidney injury were reviewed. DESCRIPTION OF PROCEDURE: After an informed consent was signed, the patient was taken to the operating room, placed in a dorsal lithotomy position with the genital area prepped and draped in the usual surgical sterile fashion. A 21-Egyptian cystoscope was utilized for cystoscopy, which demonstrated sedimentous debris, consistent with pyocystitis. Bladder was evacuated so that we may visualize the bladder mucosa. The UO was identified in normal anatomical location, mildly patulous right greater than left. An open-ended catheter was utilized to intubate the right UO, retrograde pyelogram gently was performed as she does have multiple calcific densities in the pelvis. There was a large pelvic phlebolith in the level of S3-S4, which appears to be outside the ureter. Gentle retrograde pyelogram was performed opacifying the collecting system, which demonstrated hydronephrosis. A 0.35 Sensor wire was placed into the right mid pole and a 6 x 24 double-J ureteral stent with distal tail in situ placed without difficulty. Bladder was completely emptied. An 18-Egyptian 10 mL Pompa catheter was inserted for strict Is and Os. There was a significant amount of sedimentous debris within the bladder for strict Is and Os. She will continue on meropenem. We will discontinue Pompa when urine output is relatively clear. She will require elective ureteroscopy and laser lithotripsy at later date. Job ID: [id number] [facility]
[2019-04-23] MEDS: Acetaminophen 500 MG TAB PO PRN (18:58)
[2019-04-23] MEDS: MEROPENEM 1 GM/50 ML 1 GM in Premix Bag 1 BAG IVPB SCH (18:58)
[2019-04-23] MEDS: Apixaban 5 MG TAB PO SCH (19:39)
[2019-04-23] MEDS: traZODone HCl 50 MG TAB PO SCH (19:41)
[2019-04-23] MEDS: Furosemide 20 MG TAB PO SCH (19:41)
[2019-04-23] MEDS: Docusate 100 MG CAP PO SCH (19:42)
[2019-04-23] MEDS: Calcium Carbonate + Vit D 1 TAB PO SCH (19:42)
[2019-04-23] MEDS: Ferrous Sulfate 325 MG TAB PO SCH (19:42)
[2019-04-23] MEDS: Potassium Chloride 10 MEQ TAB PO SCH (19:42)
[2019-04-23] MEDS: Sodium Chloride 0.9% 1,000 ML IV SCH (19:45)
[2019-04-23] MEDS ORDERED: Famotidine 20 MG TAB PO SCH (21:00)
[2019-04-23] MEDS ORDERED: Docusate 100 MG CAP PO SCH (21:00)
[2019-04-23] MEDS ORDERED: Trospium 20 MG TAB PO SCH (21:00)
[2019-04-24] MEDS: MEROPENEM 1 GM/50 ML 1 GM in Premix Bag 1 BAG IVPB SCH ×3 (03:16→18:12)
[2019-04-24] MEDS: HYDROcodone/Acetaminophen 10/325 mg Tablet PO PRN (03:20)
[2019-04-24 04:48] LABS: #Monocytes 0.7 thou/uL (0.11-0.59); #Neutrophils 4.9 thou/uL (1.40-6.50); %Basophils 0.4 % (0.0-1.0); %Eosinophils 0.7 % (0.0-10.0); %Lymphocytes 15.1 % (21.0-51.0); %Monocytes 10.8 % (0.0-10.0); %Neutrophils 73.1 % (42.0-75.0); Hemoglobin 10.9 g/dL (12.0-16.0); Mean Corpuscular HGB CONC 33.5 g/dL (32.0-36.0); Mean Corpuscular Hemoglobin 35.3 pg (27.0-31.0); Mean Platelet Volume 8.6 fL (7.4-10.4); Platelet Count 135 thou/uL (130-400); RBC Distribution Width 12.2 % (11.5-14.5); Red Blood Cell (RBC) Count 3.09 mill/uL (4.20-5.40); White Blood Cell (WBC) Count 6.8 thou/uL (4.8-10.8)
[2019-04-24 05:04] LABS: Anion Gap 16 mmol/L (10-20); BUN (Urea Nitrogen) 44 mg/dL (9.8-20.1); Calc. Creatinine Clearance 12 mL/min (70-130); Calcium 8.8 mg/dL (7.8-10.44); Carbon Dioxide 23 mmol/L (23-31); Chloride 106 mmol/L (98-107); Estimated GFR-MDRD 19; Glucose 99 mg/dL (83-110); Potassium 4.2 mmol/L (3.5-5.1); Sodium 141 mmol/L (136-145)
[2019-04-24] MEDS: Levothyroxine Sodium 100 MCG TAB PO SCH (05:06)
[2019-04-24] MEDS: Acetaminophen/Codeine 30-300mg Tablet PO PRN ×3 (06:00→17:56)
[2019-04-24] MEDS ORDERED: Trospium 20 MG TAB PO PRN (07:20)
[2019-04-24] MEDS: Multivit, Therapeutic 1 TAB PO SCH (07:58)
[2019-04-24] MEDS: Ferrous Sulfate 325 MG TAB PO SCH ×2 (07:59→20:16)
[2019-04-24] MEDS: Loratadine 10 MG TAB PO SCH (07:59)
[2019-04-24] MEDS: ALPRAZolam 0.25 MG TAB PO SCH (07:59)
[2019-04-24] MEDS: Isosorbide Mononitrate (ER) 30 MG TAB PO SCH (08:01)
[2019-04-24] MEDS: Apixaban 5 MG TAB PO SCH ×2 (08:01→20:14)
[2019-04-24] MEDS: Docusate 100 MG CAP PO SCH ×2 (08:01→20:16)
[2019-04-24] MEDS: Saccharomyces boulardii 250 MG CAP PO SCH (08:01)
[2019-04-24] MEDS: Potassium Chloride 10 MEQ TAB PO SCH ×2 (08:01→20:14)
[2019-04-24] MEDS: Polyethylene Glycol 3350 17 GM Packet PO SCH (08:01)
[2019-04-24] MEDS: Amlodipine 5 MG TAB PO SCH (08:02)
[2019-04-24] MEDS: Furosemide 20 MG TAB PO SCH ×2 (08:02→20:16)
[2019-04-24] MEDS: Sodium Chloride 0.9% 1,000 ML IV SCH (08:09)
--- NOTE | 2019-04-24 08:09 | PRG ---
DATE OF SERVICE: 04/24/2019 SUBJECTIVE: The patient is feeling better. OBJECTIVE: VITAL SIGNS: Stable, afebrile. I's and O's 2700 in, 1500 out. Urine output danna with some sediment. ABDOMEN: Soft, nontender, nondistended. No rigidity. No rebound. PERTINENT LABORATORY DATA: White count decreased from 12 to 6.8, hemoglobin 10.9, platelets 135. Creatinine has decreased from 2.8 to 2.4. Previous urine culture demonstrating Pseudomonas and Enterococcus component. IMPRESSION AND PLAN: Ms. Thapa is an 88-year-old female with, 1. History of recurrent kidney stone, prior history of vancomycin-resistant enterococcal urosepsis. 2. Narcotic dependence postoperative day #1, status post cystoscopy, right retrograde stent placement. Anticipate Pompa to be removed in the next day or so, prior to discharge. I would recommend Infectious Disease consult as she has renal insufficiency, polymicrobial, multiple drug resistance. She will require negative urine culture to proceed with ureteroscopy, laser lithotripsy, elective in the next couple of weeks. Pending Infectious Disease consult for antibiotic regimen. Disposition back to her facility can be facilitated. Job ID: [id number]
[2019-04-24] MEDS ORDERED: Trospium 20 MG TAB PO SCH (09:00)
[2019-04-24] MEDS ORDERED: Prevnar 13-Val Conj/PF 0.5 ML SYRINGE IM ONE (11:00)
--- NOTE | 2019-04-24 15:37 | PDOC.HOSPP ---
- Subjective Encounter Date: 04/24/19 Encounter Time: 15:59 Subjective: Pt seen for followup re: UTI. says she feels better. - Objective Vital Signs & Weight: Vital Signs (12 hours) Temp Pulse Resp BP BP Pulse Ox 04/24/19 15:17 98 F 85 14 124/58 L 92 L 04/24/19 11:02 97.8 F 82 14 122/69 94 L 04/24/19 08:15 97 04/24/19 08:02 84 123/64 04/24/19 03:56 97.6 F 80 16 155/85 H 97 Weight Admit Weight 101 lb 8 oz Weight 101 lb 8 oz I&O: 04/23/19 04/24/19 04/25/19 06:59 06:59 06:59 Intake Total 2707.5 Output Total 1500 Balance 1207.5 Result Diagrams: 04/24/19 03:51 04/24/19 03:51 Additional Labs: Labs and MARs reviewed by hi Hospitalist ROS - Review of Systems Cardiovascular: denies: chest pain, palpitations, orthopnea, paroxysmal noc. dyspnea, edema, light headedness Gastrointestinal: denies: nausea, vomitting, abdominal pain, diarrhea, constipation, melena, hematochezia - Medication Medications: Active Medications Generic Name Dose Route Start Last Admin Trade Name Keatonq PRN Reason Stop Dose Admin Acetaminophen 1,000 mg 04/23/19 11:38 04/23/19 18:58 Tylenol PO 1,000 mg Q6HR PRN Administration Fever>101/(Mi/Mod/Sev) Pain Acetaminophen/Codeine Phosphate 1 tab 04/23/19 03:00 04/24/19 11:59 Tylenol #3 PO 1 tab Q4H PRN Administration Moderate Pain (4-6) Hydrocodone Bitart/Acetaminophen 1 tab 04/23/19 11:38 04/24/19 03:20 [place] 10/325 PO 1 tab Q6HR PRN Administration Moderate to Severe Pain (6-10) Alprazolam 0.25 mg 04/24/19 09:00 04/24/19 07:59 Xanax PO 0.25 mg DAILY MICHAEL Administration Amlodipine Besylate 2.5 mg 04/24/19 09:00 04/24/19 08:02 Norvasc PO 2.5 mg DAILY MICHAEL Administration Apixaban 2.5 mg 04/23/19 21:00 04/24/19 08:01 Eliquis PO 2.5 mg BID MICHAEL Administration Calcium/Vitamin D 1 tab 04/23/19 21:00 04/23/19 19:42 Caltrate 600 + Vit D PO 1 tab HS MICHAEL Administration Cholecalciferol 1,000 units 04/24/19 09:00 04/24/19 08:01 Vitamin D3 PO 1,000 units DAILY MICHAEL Administration Docusate Sodium 100 mg 04/23/19 21:00 04/24/19 08:01 Colace PO 100 mg BID MICHAEL Administration Ferrous Sulfate 325 mg 04/23/19 21:00 04/24/19 07:59 Feosol PO 325 mg BID MICHAEL Administration Furosemide 20 mg 04/23/19 21:00 04/24/19 08:02 Lasix PO 20 mg BID MICHAEL Administration Sodium Chloride 1,000 mls @ 70 mls/hr 04/23/19 15:45 04/24/19 08:09 Normal Saline 0.9% IV 1,000 mls .[id number] MICHAEL Administration Meropenem 1 gm/ Device 50 mls @ 100 mls/hr 04/23/19 19:00 04/24/19 11:28 IVPB 50 mls 0300,1100,1900 MICHAEL Administration Isosorbide Mononitrate 30 mg 04/24/19 09:00 04/24/19 08:01 Imdur Er PO 30 mg DAILY MICHAEL Administration Levothyroxine Sodium 100 mcg 04/24/19 06:00 04/24/19 05:06 Synthroid PO 100 mcg 0600 MICHAEL Administration Loratadine 10 mg 04/24/19 09:00 04/24/19 07:59 Claritin PO 10 mg DAILY MICHAEL Administration Multivitamins 1 tab 04/24/19 09:00 04/24/19 07:58 Theragran PO 1 tab DAILY MICHAEL Administration Polyethylene Glycol 17 gm 04/24/19 09:00 04/24/19 08:01 Miralax PO 17 gm DAILY MICHAEL Administration Potassium Chloride 10 meq 04/23/19 21:00 04/24/19 08:01 Klor-Con 10 PO 10 meq BID MICHAEL Administration Saccharomyces Boulardii 250 mg 04/24/19 09:00 04/24/19 08:01 Florastor PO 250 mg DAILY MICHAEL Administration Trazodone HCl 50 mg 04/23/19 21:00 04/23/19 19:41 Desyrel PO 50 mg HS MICHAEL Administration - Exam General Appearance: NAD Eye: anicteric sclera ENT: moist mucosa Neck: supple Heart: RRR, normal peripheral pulses Respiratory: CTAB Gastrointestinal: soft, non-tender Extremities: no cyanosis, no clubbing, no edema Skin: normal turgor Psychiatric: normal affect, normal behavior Hosp A/P (1) UTI (urinary tract infection) Status: Acute (2) Obstructive uropathy Code(s): N13.9 - OBSTRUCTIVE AND REFLUX UROPATHY, UNSPECIFIED Status: Acute (3) Urolithiasis Code(s): N20.9 - URINARY CALCULUS, UNSPECIFIED Status: Acute (4) Atrial fibrillation Code(s): I48.91 - UNSPECIFIED ATRIAL FIBRILLATION Status: Chronic (5) COPD (chronic obstructive pulmonary disease) Status: Chronic Qualifiers: COPD type: emphysema (6) GERD (gastroesophageal reflux disease) Code(s): K21.9 - GASTRO-ESOPHAGEAL REFLUX DISEASE WITHOUT ESOPHAGITIS Status: Chronic Qualifiers: Esophagitis presence: without esophagitis Qualified Code(s): K21.9 - Gastro -esophageal reflux disease without esophagitis (7) HTN (hypertension) Code(s): I10 - ESSENTIAL (PRIMARY) HYPERTENSION Status: Chronic Qualifiers: Hypertension type: essential hypertension Qualified Code(s): I10 - Essential (primary) hypertension (8) Hypothyroidism Code(s): E03.9 - HYPOTHYROIDISM, UNSPECIFIED Status: Chronic Qualifiers: Hypothyroidism type: acquired Qualified Code(s): E03.9 - Hypothyroidism, unspecified (9) Sepsis Code(s): A41.9 - SEPSIS, UNSPECIFIED ORGANISM Status: Resolved - Plan continue antibiotics, out of bed/ambulate Sepsis secondary to UTI, now resolved. Continue IV meropenem. Await ID consult. Does not appear cultures were sent from ER, staff contacting them to see if they can run on sample taken in ER. Monitor vital signs, titrate antihypertensives as needed. s/p cystoscopy and ureteric stent placement.
[2019-04-24] MEDS: Acetaminophen 500 MG TAB PO PRN (20:15)
[2019-04-24] MEDS: traZODone HCl 50 MG TAB PO SCH (20:15)
[2019-04-24] MEDS: Calcium Carbonate + Vit D 1 TAB PO SCH (20:15)
[2019-04-24] MEDS: Famotidine 20 MG TAB PO SCH (20:16)
[2019-04-25] MEDS: Sodium Chloride 0.9% 1,000 ML IV SCH ×2 (02:20→11:27)
[2019-04-25] MEDS: MEROPENEM 1 GM/50 ML 1 GM in Premix Bag 1 BAG IVPB SCH ×3 (02:21→18:31)
[2019-04-25] MEDS: Levothyroxine Sodium 100 MCG TAB PO SCH (05:30)
[2019-04-25] MEDS: Acetaminophen/Codeine 30-300mg Tablet PO PRN ×3 (05:35→18:33)
--- NOTE | 2019-04-25 07:50 | PRG ---
DATE OF SERVICE: 04/25/2019 SUBJECTIVE: Patient without complaints. OBJECTIVE: VITAL SIGNS: T-max of 101.5 yesterday 10 p.m. and currently is 98; 80, 16, 96, 145/79. I'S AND O'S: 2920 in, 2225 out. Urine output is clear yellow, resolution of sediment. EXTREMITIES: No cyanosis, clubbing, or edema. LABORATORY DATA: No new labs. Her white count yesterday normalized to 6, hemoglobin stable. Creatinine 2.4 yesterday. Blood culture on admission negative so far. Urine culture, Pseudomonas and Enterococcus. IMPRESSION AND PLAN: Ms. Thapa is an 88-year-old elderly female with; 1. History of narcotic dependence, chronic back pain. 2. Recurrent kidney stone. Current admission due to right hydronephrosis due to obstructing 6 mm stone postop day #2. Status post cysto, right ureteral stent. Await Infectious Disease consult for course of antibiotic regimen as an outpatient. Elective ureteroscopy at a later date when repeat culture negative. We will discontinue Pompa. Job ID: [id number]
[2019-04-25] MEDS: Polyethylene Glycol 3350 17 GM Packet PO SCH (08:49)
[2019-04-25] MEDS: Isosorbide Mononitrate (ER) 30 MG TAB PO SCH (08:50)
[2019-04-25] MEDS: Apixaban 5 MG TAB PO SCH ×2 (08:50→21:18)
[2019-04-25] MEDS: Potassium Chloride 10 MEQ TAB PO SCH ×2 (08:51→21:18)
[2019-04-25] MEDS: Amlodipine 5 MG TAB PO SCH (08:52)
[2019-04-25] MEDS: Docusate 100 MG CAP PO SCH ×2 (08:52→21:18)
[2019-04-25] MEDS: Loratadine 10 MG TAB PO SCH (08:52)
[2019-04-25] MEDS: Furosemide 20 MG TAB PO SCH ×2 (08:52→21:18)
[2019-04-25] MEDS: Multivit, Therapeutic 1 TAB PO SCH (08:52)
[2019-04-25] MEDS: Saccharomyces boulardii 250 MG CAP PO SCH (08:53)
[2019-04-25] MEDS: ALPRAZolam 0.25 MG TAB PO SCH (08:53)
[2019-04-25] MEDS: Ferrous Sulfate 325 MG TAB PO SCH ×2 (08:53→21:18)
[2019-04-25 10:46] LABS: #Eosinphils 0.7 thou/uL (0.0-0.7); #Lymphocytes 0.7 thou/uL (1.20-3.40); #Monocytes 0.8 thou/uL (0.11-0.59); #Neutrophils 3.6 thou/uL (1.40-6.50); %Basophils 0.4 % (0.0-1.0); %Eosinophils 11.7 % (0.0-10.0); %Lymphocytes 12.5 % (21.0-51.0); %Monocytes 13.1 % (0.0-10.0); %Neutrophils 62.4 % (42.0-75.0); Mean Corpuscular HGB CONC 32.7 g/dL (32.0-36.0); Mean Corpuscular Hemoglobin 34.3 pg (27.0-31.0); Mean Platelet Volume 8.8 fL (7.4-10.4); Platelet Count 158 thou/uL (130-400); RBC Distribution Width 12.3 % (11.5-14.5); Red Blood Cell (RBC) Count 3.51 mill/uL (4.20-5.40); White Blood Cell (WBC) Count 5.7 thou/uL (4.8-10.8)
[2019-04-25 10:57] LABS: Anion Gap 10 mmol/L (10-20); BUN (Urea Nitrogen) 45 mg/dL (9.8-20.1); Calc. Creatinine Clearance 15 mL/min (70-130); Calcium 9.1 mg/dL (7.8-10.44); Carbon Dioxide 30 mmol/L (23-31); Chloride 103 mmol/L (98-107); Estimated GFR-MDRD 24; Glucose 89 mg/dL (83-110); Potassium 4.6 mmol/L (3.5-5.1); Sodium 138 mmol/L (136-145)
--- NOTE | 2019-04-25 13:25 | PDOC.HOSPP ---
- Subjective Encounter Date: 04/25/19 Encounter Time: 08:00 Subjective: Pt seen for followup re; UTI. Sleepy but arousable, no complaints. - Objective Vital Signs & Weight: Vital Signs (12 hours) Temp Pulse Resp BP BP Pulse Ox 04/25/19 11:37 98 F 80 18 138/76 93 L 04/25/19 08:52 79 143/80 H 04/25/19 08:50 98.7 F 79 16 143/80 H 93 L 04/25/19 03:37 98.0 F 80 16 145/79 H 96 Weight Admit Weight 101 lb 8 oz Weight 101 lb 8 oz I&O: 04/24/19 04/25/19 04/26/19 06:59 06:59 06:59 Intake Total 2707.5 2920 Output Total 1500 2225 Balance 1207.5 695 Result Diagrams: 04/25/19 10:08 04/25/19 10:08 Additional Labs: Labs and MARs reviewed by ri Hospitalist ROS - Review of Systems Cardiovascular: denies: chest pain, palpitations, orthopnea, paroxysmal noc. dyspnea, edema, light headedness Gastrointestinal: denies: nausea, vomiting, abdominal pain, diarrhea, constipation, melena, hematochezia - Medication Medications: Active Medications Generic Name Dose Route Start Last Admin Trade Name Ke[place]q PRN Reason Stop Dose Admin Acetaminophen 1,000 mg 04/23/19 11:38 04/24/19 20:15 Tylenol PO 1,000 mg Q6HR PRN Administration Fever>101/(Mi/Mod/Sev) Pain Acetaminophen/Codeine Phosphate 1 tab 04/23/19 03:00 04/25/19 11:24 Tylenol #3 PO 1 tab Q4H PRN Administration Moderate Pain (4-6) Hydrocodone Bitart/Acetaminophen 1 tab 04/23/19 11:38 04/24/19 03:20 [place] 10/325 PO 1 tab Q6HR PRN Administration Moderate to Severe Pain (6-10) Alprazolam 0.25 mg 04/24/19 09:00 04/25/19 08:53 Xanax PO 0.25 mg DAILY MICHAEL Administration Amlodipine Besylate 2.5 mg 04/24/19 09:00 04/25/19 08:52 Norvasc PO 2.5 mg DAILY MICHAEL Administration Apixaban 2.5 mg 04/23/19 21:00 04/25/19 08:50 Eliquis PO 2.5 mg BID MICHAEL Administration Calcium/Vitamin D 1 tab 04/23/19 21:00 04/24/19 20:15 Caltrate 600 + Vit D PO 1 tab HS MICHAEL Administration Cholecalciferol 1,000 units 04/24/19 09:00 04/25/19 08:51 Vitamin D3 PO 1,000 units DAILY MICHAEL Administration Docusate Sodium 100 mg 04/23/19 21:00 04/25/19 08:52 Colace PO 100 mg BID MICHAEL Administration Famotidine 20 mg 04/24/19 21:00 04/24/19 20:16 Pepcid PO 20 mg QPM MICHAEL Administration Ferrous Sulfate 325 mg 04/23/19 21:00 04/25/19 08:53 Feosol PO 325 mg BID MICHAEL Administration Furosemide 20 mg 04/23/19 21:00 04/25/19 08:52 Lasix PO 20 mg BID MICHAEL Administration Sodium Chloride 1,000 mls @ 70 mls/hr 04/23/19 15:45 04/25/19 11:27 Normal Saline 0.9% IV 1,000 mls .[id number] MICHAEL Administration Meropenem 1 gm/ Device 50 mls @ 100 mls/hr 04/23/19 19:00 04/25/19 11:24 IVPB 50 mls 0300,1100,1900 MICHAEL Administration Isosorbide Mononitrate 30 mg 04/24/19 09:00 04/25/19 08:50 Imdur Er PO 30 mg DAILY MICHAEL Administration Levothyroxine Sodium 100 mcg 04/24/19 06:00 04/25/19 05:30 Synthroid PO 100 mcg 0600 MICHAEL Administration Loratadine 10 mg 04/24/19 09:00 04/25/19 08:52 Claritin PO 10 mg DAILY MICHAEL Administration Multivitamins 1 tab 04/24/19 09:00 04/25/19 08:52 Theragran PO 1 tab DAILY MICHAEL Administration Polyethylene Glycol 17 gm 04/24/19 09:00 04/25/19 08:49 Miralax PO 17 gm DAILY MICHAEL Administration Potassium Chloride 10 meq 04/23/19 21:00 04/25/19 08:51 Klor-Con 10 PO 10 meq BID MICHAEL Administration Saccharomyces Boulardii 250 mg 04/24/19 09:00 04/25/19 08:53 Florastor PO 250 mg DAILY MICHAEL Administration Trazodone HCl 50 mg 04/23/19 21:00 04/24/19 20:15 Desyrel PO 50 mg HS MICHAEL Administration - Exam General Appearance: NAD Eye: anicteric sclera ENT: moist mucosa Neck: supple Heart: RRR Respiratory: CTAB Gastrointestinal: soft, non-tender, normal bowel sounds Skin: no lesions Musculoskeletal: normal tone Psychiatric: normal behavior, lethargic Hosp A/P (1) UTI (urinary tract infection) Status: Acute (2) Obstructive uropathy Code(s): N13.9 - OBSTRUCTIVE AND REFLUX UROPATHY, UNSPECIFIED Status: Acute (3) Urolithiasis Code(s): N20.9 - URINARY CALCULUS, UNSPECIFIED Status: Acute (4) Atrial fibrillation Code(s): I48.91 - UNSPECIFIED ATRIAL FIBRILLATION Status: Chronic (5) COPD (chronic obstructive pulmonary disease) Status: Chronic Qualifiers: COPD type: emphysema (6) GERD (gastroesophageal reflux disease) Code(s): K21.9 - GASTRO-ESOPHAGEAL REFLUX DISEASE WITHOUT ESOPHAGITIS Status: Chronic Qualifiers: Esophagitis presence: without esophagitis Qualified Code(s): K21.9 - Gastro -esophageal reflux disease without esophagitis (7) HTN (hypertension) Code(s): I10 - ESSENTIAL (PRIMARY) HYPERTENSION Status: Chronic Qualifiers: Hypertension type: essential hypertension Qualified Code(s): I10 - Essential (primary) hypertension (8) Hypothyroidism Code(s): E03.9 - HYPOTHYROIDISM, UNSPECIFIED Status: Chronic Qualifiers: Hypothyroidism type: acquired Qualified Code(s): E03.9 - Hypothyroidism, unspecified (9) Sepsis Code(s): A41.9 - SEPSIS, UNSPECIFIED ORGANISM Status: Resolved - Plan continue antibiotics, out of bed/ambulate Sepsis secondary to UTI, now resolved. Continue IV meropenem. Follow urine culture. Await ID consult. BP controlled. s/p cystoscopy and ureteric stent placement.
[2019-04-25] MEDS: HYDROcodone/Acetaminophen 10/325 mg Tablet PO PRN ×2 (14:43→21:17)
[2019-04-25] MEDS: traZODone HCl 50 MG TAB PO SCH (21:18)
[2019-04-25] MEDS: Calcium Carbonate + Vit D 1 TAB PO SCH (21:18)
[2019-04-25] MEDS: Famotidine 20 MG TAB PO SCH (21:18)
--- NOTE | 2019-04-25 23:21 | CON ---
DATE OF CONSULTATION: 04/25/2019 REASON FOR CONSULTATION: Abdominal pain, nephrolithiasis with obstruction, status post stenting. HISTORY OF PRESENT ILLNESS: This is an 88-year-old, whom I had seen recently in February. Ms. Thapa has a history of COPD, dementia, and recurrent nephrolithiasis, which has required intervention, including a stenting and antimicrobial therapy. She has chronic colonization with Pseudomonas, probably related to the stone burden. She has had persistently abnormal urinalysis in the past and has had a number of other issues as well including acute coronary syndrome, CHF, back pain ascribed to musculoskeletal disorder. Imaging study then showed lumbar and thoracic spine compression fractures, and then in February, she was admitted with recurrence of the back pain, which exacerbated even after light touch around the chest area on the left side, suggestive of hyperesthesia and allodynia. She did have a severe hearing impairment and it was difficult to communicate with the patient. At that time, we felt that the symptoms were related to probably a radiculopathy. The CT scan of the abdomen and pelvis done without contrast, renal calculus protocol, on February 18 demonstrated bilateral renal calcifications with parenchymal atrophy of the kidneys, no hydronephrosis, and multiple compression deformities of the spine re-demonstrated. She was readmitted on April 23 and she is a resident at [facility] and started having abdominal pain the day before admission across her mid abdomen and lower abdomen. Again, there was a high level of difficulty with communication because I think mostly because of hearing impairment. According to the note on admission, she denied dysuria. She did have a temp of 100.6. The vital signs showed a BP 150/87, pulse 94, respirations 12, O2 sat 93, and temperature was normal. There was mild tenderness described in the lower abdominal quadrants. No distention. No rigidity. The patient had a CT done on admission for abdomen and pelvis. This was a stone protocol study. At this time, it showed some parenchymal lung scarring, liver was normal, pancreas normal, gallbladder normal, and there was a 6-mm calculus in the proximal right ureter with moderate right obstructive uropathy. There is additional bilateral nephrolithiasis, but that was not obstructive. The initial labs demonstrated white cell count of 12,000, hemoglobin 13, and platelets 203 with 84% neutrophils. Her creatinine is 2.8. Liver profile normal. Calcium is 11. Urinalysis with greater than 50 wbc's. The urine culture thus far with presumptive Enterococcus. The patient had a stent placed by Dr. Forrester after a right retrograde pyelogram. Currently, Ms. Thapa is still having pain in the abdominal area. She points across her mid abdomen, mostly on the right side, but also some in the left side. She otherwise does not appear in distress. It is very hard to communicate with her. She has not had diarrhea. No respiratory symptoms. 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 PAST SURGICAL HISTORY: Cholecystectomy, appendectomy, hysterectomy, tonsillectomy, right hip replacement, has had stents in the past, left hip repair after fracture, and pacemaker placement. SOCIAL HISTORY: She lives in [facility]. Never smoker. ALLERGIES: NONE. CURRENT MEDICATIONS: 1. Tylenol. 2. [place]. 3. DuoNeb. 4. Xanax. 5. Norvasc. 6. Eliquis. 7. Dulcolax. 8. Vitamin D. 9. Catapres. 10. Colace. 11. Pepcid. 12. Lasix. 13. Imdur. 14. Synthroid. 15. Meropenem. PHYSICAL EXAMINATION: VITAL SIGNS: T-max 101.5, BP 140/80, pulse 79, respirations 16, and O2 sat 93% . SKIN: No areas of skin breakdown. Peripheral IV access. She has an indwelling Pompa catheter. No lymphadenopathy. Some element of wasting syndrome. HEENT: Ocular movements conjugate. Oral cavity is not particularly remarkable. NECK: Supple. No jugular vein distention. No thyromegaly. LUNGS: With symmetric air entry. HEART: S1 and S2. Regular rate with a soft aortic murmur. Pacemaker pocket appears normal. ABDOMEN: Quite tender in the right side, but also on the left and midline. No rebound tenderness. No distention. Bowel sounds are present. EXTREMITIES: She is able to move all extremities. NEUROLOGIC: She is awake and establishes eye contact. I believe most of the cognitive issues are related to her severe hearing impairment. I do not think she has a hearing aid with her at this moment. ASSESSMENT: 1. Severe hearing impairment affecting cognitive function. It is possible the patient has normal cognitive function if the hearing impairment is corrected. 2. Chronic nephrolithiasis. 3. New onset of obstructive findings in the right kidney with likely pyelonephritis, status post stenting. Enterococcus species retrieved from the clean-catch sample. Negative blood cultures. A sample from March had P aeruginosa and E faecalis. The P aeruginosa had a broad susceptibility profile. The E faecalis is as expected susceptible to ampicillin. The patient has had the same gram negatives back to July 01. DISCUSSION: The patient now will continue on antimicrobial therapy. I think we can probably maintain the meropenem, but eventually switch to a combination of oral ciprofloxacin plus ampicillin to complete the course of treatment and probably treat her for a protracted period of time at least 4 weeks. She is likely to have recurrence of the same issues in the future in view of the remainder of her stones that are likely colonized. It would be important to correct her hearing impairment to see if we could communicate better with her and get some more information from her subjective status. Other inflammatory processes in the intraabdominal compartment are not obvious or likely. Job ID: [id number] [facility]
[2019-04-26] MEDS: MEROPENEM 1 GM/50 ML 1 GM in Premix Bag 1 BAG IVPB SCH ×3 (02:28→18:47)
[2019-04-26] MEDS: Acetaminophen/Codeine 30-300mg Tablet PO PRN ×4 (02:29→23:16)
[2019-04-26] MEDS: Sodium Chloride 0.9% 1,000 ML IV SCH ×2 (02:29→14:59)
[2019-04-26 05:01] LABS: #Eosinphils 0.7 thou/uL (0.0-0.7); #Lymphocytes 0.9 thou/uL (1.20-3.40); #Monocytes 0.9 thou/uL (0.11-0.59); #Neutrophils 3.5 thou/uL (1.40-6.50); %Basophils 0.8 % (0.0-1.0); %Lymphocytes 14.4 % (21.0-51.0); %Monocytes 14.6 % (0.0-10.0); %Neutrophils 59.3 % (42.0-75.0); Hemoglobin 12.6 g/dL (12.0-16.0); Mean Corpuscular HGB CONC 33.2 g/dL (32.0-36.0); Mean Corpuscular Hemoglobin 34.9 pg (27.0-31.0); Mean Platelet Volume 9.2 fL (7.4-10.4); Platelet Count 157 thou/uL (130-400); RBC Distribution Width 12.3 % (11.5-14.5); Red Blood Cell (RBC) Count 3.62 mill/uL (4.20-5.40)
[2019-04-26 05:23] LABS: Anion Gap 13 mmol/L (10-20); BUN (Urea Nitrogen) 47 mg/dL (9.8-20.1); Calc. Creatinine Clearance 15 mL/min (70-130); Calcium 9.6 mg/dL (7.8-10.44); Carbon Dioxide 31 mmol/L (23-31); Chloride 98 mmol/L (98-107); Estimated GFR-MDRD 24; Glucose 86 mg/dL (83-110); Sodium 138 mmol/L (136-145)
[2019-04-26] MEDS: Levothyroxine Sodium 100 MCG TAB PO SCH (05:36)
[2019-04-26] MEDS: HYDROcodone/Acetaminophen 10/325 mg Tablet PO PRN (05:38)
--- NOTE | 2019-04-26 07:48 | PRG ---
DATE OF SERVICE: 04/26/2019 SUBJECTIVE: The patient is alert, eating breakfast. OBJECTIVE: VITAL SIGNS: Stable. She is afebrile for more than 36 hours. ABDOMEN: Soft. No rigidity. No rebound. LABORATORY DATA: White count 6, hemoglobin 12, and platelet 157. Creatinine is 1.9, which is near her baseline. Urine culture from April 23, presumptuous Enterococcus. Blood culture negative from April 22. On April 02 demonstrating Pseudomonas and Enterococcus. Appreciate Infectious Disease consult, recommending continuing IV meropenem and transitioning to Cipro and ampicillin at a later point per his discretion. IMPRESSION AND PLAN: 1. Ms. Thapa is an 88-year-old female, narcotic dependent, advanced age with history of recurrent kidney stones, prior history of vancomycin-resistant Enterococcus urosepsis. 2. Postop day #3, status post cysto, right ureteral stent. The patient clinically stable, can discharge to her facility when disposition final with Infectious Disease regarding course of antibiotic regimen. will recheck UA, C and S, straight cath, specimen today. Has followup with me on May 10 to reassess and proceed with elective ureteroscopy and laser lithotripsy as an outpatient. From urologic perspective, she can be discharged with appropriate antibiotic regimen as prescribed by Dr. Lipscomb. Dr. West covering me for p.r.n. issues. Job ID: [id number] [facility]TDD
[2019-04-26] MEDS: Ferrous Sulfate 325 MG TAB PO SCH ×2 (09:04→20:09)
[2019-04-26] MEDS: Isosorbide Mononitrate (ER) 30 MG TAB PO SCH (09:04)
[2019-04-26] MEDS: Potassium Chloride 10 MEQ TAB PO SCH ×2 (09:04→20:09)
[2019-04-26] MEDS: Saccharomyces boulardii 250 MG CAP PO SCH (09:04)
[2019-04-26] MEDS: Multivit, Therapeutic 1 TAB PO SCH (09:04)
[2019-04-26] MEDS: ALPRAZolam 0.25 MG TAB PO SCH (09:04)
[2019-04-26] MEDS: Loratadine 10 MG TAB PO SCH (09:04)
[2019-04-26] MEDS: Apixaban 5 MG TAB PO SCH ×2 (09:04→20:08)
[2019-04-26] MEDS: Furosemide 20 MG TAB PO SCH ×2 (09:05→20:09)
[2019-04-26] MEDS: Amlodipine 5 MG TAB PO SCH (09:05)
[2019-04-26] MEDS: Docusate 100 MG CAP PO SCH ×2 (09:07→20:08)
[2019-04-26] MEDS: Polyethylene Glycol 3350 17 GM Packet PO SCH (09:07)
[2019-04-26 10:18] LABS: Bilirubin Negative (Negative); Blood, Urine 2+ (Negative); Clarity Clear (Clear); Glucose, Urine (Dipstick) Normal (Negative); Leukocyte 250 Leu/uL (Negative); Nitrite Negative (Negative); Protein, Urine (Dipstick) 30 mg/dL (Neg-Trace); RBC/HPF Greater than 50 HPF (0-3); Squamous Epithelial 0-3 HPF (0-3); Urobilinogen Normal mg/dL (Less than 2)
[2019-04-26 10:28] LABS: Bacteria/HPF Rare-Few HPF (None Seen)
--- NOTE | 2019-04-26 13:15 | PDOC.HOSPP ---
- Subjective Encounter Date: 04/26/19 Encounter Time: 07:40 Subjective: Pt seen for followup re:UTI. Says she feels better. c/o suprapubic discomfort. - Objective Vital Signs & Weight: Vital Signs (12 hours) Temp Pulse Resp BP BP Pulse Ox 04/26/19 11:42 83 20 148/83 H 91 L 04/26/19 09:05 82 148/83 H 04/26/19 08:00 98.4 F 84 16 148/83 H 90 L 04/26/19 03:06 97.9 F 80 16 160/90 H 92 L Weight Admit Weight 101 lb 8 oz Weight 101 lb 8 oz I&O: 04/25/19 04/26/19 04/27/19 06:59 06:59 06:59 Intake Total 2920 2574 Output Total 2225 1950 Balance 695 624 Result Diagrams: 04/26/19 04:24 04/26/19 04:24 Additional Labs: Labs and MARs reviewed by ia Hospitalist ROS - Review of Systems Cardiovascular: denies: chest pain, palpitations, orthopnea, paroxysmal noc. dyspnea, edema, light headedness Gastrointestinal: reports: abdominal pain. denies: nausea, vomiting, diarrhea, constipation, melena, hematochezia - Medication Medications: Active Medications Generic Name Dose Route Start Last Admin Trade Name Freq PRN Reason Stop Dose Admin Acetaminophen 1,000 mg 04/23/19 11:38 04/24/19 20:15 Tylenol PO 1,000 mg Q6HR PRN Administration Fever>101/(Mi/Mod/Sev) Pain Acetaminophen/Codeine Phosphate 1 tab 04/23/19 03:00 04/26/19 10:00 Tylenol #3 PO 1 tab Q4H PRN Administration Moderate Pain (4-6) Hydrocodone Bitart/Acetaminophen 1 tab 04/23/19 11:38 04/26/19 05:38 [place] 10/325 PO 1 tab Q6HR PRN Administration Moderate to Severe Pain (6-10) Alprazolam 0.25 mg 04/24/19 09:00 04/26/19 09:04 Xanax PO 0.25 mg DAILY MICHAEL Administration Amlodipine Besylate 2.5 mg 04/24/19 09:00 04/26/19 09:05 Norvasc PO 2.5 mg DAILY MICHAEL Administration Apixaban 2.5 mg 04/23/19 21:00 04/26/19 09:04 Eliquis PO 2.5 mg BID MICHAEL Administration Calcium/Vitamin D 1 tab 04/23/19 21:00 04/25/19 21:18 Caltrate 600 + Vit D PO 1 tab HS MICHAEL Administration Cholecalciferol 1,000 units 04/24/19 09:00 04/26/19 09:04 Vitamin D3 PO 1,000 units DAILY MICHAEL Administration Docusate Sodium 100 mg 04/23/19 21:00 04/26/19 09:07 Colace PO Not Given BID MICHAEL Famotidine 20 mg 04/24/19 21:00 04/25/19 21:18 Pepcid PO 20 mg QPM MICHAEL Administration Ferrous Sulfate 325 mg 04/23/19 21:00 04/26/19 09:04 Feosol PO 325 mg BID MICHAEL Administration Furosemide 20 mg 04/23/19 21:00 04/26/19 09:05 Lasix PO 20 mg BID MICHAEL Administration Sodium Chloride 1,000 mls @ 70 mls/hr 04/23/19 15:45 04/26/19 02:29 Normal Saline 0.9% IV 1,000 mls .[id number] MICHAEL Administration Meropenem 1 gm/ Device 50 mls @ 100 mls/hr 04/23/19 19:00 04/26/19 11:40 IVPB 50 mls 0300,1100,1900 MICHAEL Administration Isosorbide Mononitrate 30 mg 04/24/19 09:00 04/26/19 09:04 Imdur Er PO 30 mg DAILY MICHAEL Administration Levothyroxine Sodium 100 mcg 04/24/19 06:00 04/26/19 05:36 Synthroid PO 100 mcg 0600 MICHAEL Administration Loratadine 10 mg 04/24/19 09:00 04/26/19 09:04 Claritin PO 10 mg DAILY MICHAEL Administration Multivitamins 1 tab 04/24/19 09:00 04/26/19 09:04 Theragran PO 1 tab DAILY MICHAEL Administration Polyethylene Glycol 17 gm 04/24/19 09:00 04/26/19 09:07 Miralax PO Not Given DAILY MICHAEL Potassium Chloride 10 meq 04/23/19 21:00 04/26/19 09:04 Klor-Con 10 PO 10 meq BID MICHAEL Administration Saccharomyces Boulardii 250 mg 04/24/19 09:00 04/26/19 09:04 Florastor PO 250 mg DAILY MICHAEL Administration Trazodone HCl 50 mg 04/23/19 21:00 04/25/19 21:18 Desyrel PO 50 mg HS MICHAEL Administration Trospium 20 mg 04/24/19 07:20 04/26/19 05:36 Trospium PO 20 mg BIDPRN PRN Administration SPASM - Exam General Appearance: NAD Eye: anicteric sclera ENT: moist mucosa Neck: supple Heart: RRR Respiratory: CTAB Gastrointestinal: soft, non-tender, normal bowel sounds Skin: no lesions Psychiatric: normal affect, normal behavior Hosp A/P (1) UTI (urinary tract infection) Status: Acute (2) Obstructive uropathy Code(s): N13.9 - OBSTRUCTIVE AND REFLUX UROPATHY, UNSPECIFIED Status: Acute (3) Urolithiasis Code(s): N20.9 - URINARY CALCULUS, UNSPECIFIED Status: Acute (4) Atrial fibrillation Code(s): I48.91 - UNSPECIFIED ATRIAL FIBRILLATION Status: Chronic (5) COPD (chronic obstructive pulmonary disease) Status: Chronic Qualifiers: COPD type: emphysema (6) GERD (gastroesophageal reflux disease) Code(s): K21.9 - GASTRO-ESOPHAGEAL REFLUX DISEASE WITHOUT ESOPHAGITIS Status: Chronic Qualifiers: Esophagitis presence: without esophagitis Qualified Code(s): K21.9 - Gastro -esophageal reflux disease without esophagitis (7) HTN (hypertension) Code(s): I10 - ESSENTIAL (PRIMARY) HYPERTENSION Status: Chronic Qualifiers: Hypertension type: essential hypertension Qualified Code(s): I10 - Essential (primary) hypertension (8) Hypothyroidism Code(s): E03.9 - HYPOTHYROIDISM, UNSPECIFIED Status: Chronic Qualifiers: Hypothyroidism type: acquired Qualified Code(s): E03.9 - Hypothyroidism, unspecified (9) Chronic kidney disease, stage 4 (severe) Code(s): N18.4 - CHRONIC KIDNEY DISEASE, STAGE 4 (SEVERE) Status: Chronic (10) Sepsis Code(s): A41.9 - SEPSIS, UNSPECIFIED ORGANISM Status: Resolved - Plan continue antibiotics, out of bed/ambulate Continue IV meropenem. Follow sensitivities for presumptive Enterococcus. Appreciate ID service input. BP controlled. s/p cystoscopy and ureteric stent placement. To follow up with urology as outpatient.
[2019-04-26] MEDS: traZODone HCl 50 MG TAB PO SCH (20:07)
[2019-04-26] MEDS: Famotidine 20 MG TAB PO SCH (20:09)
[2019-04-26] MEDS: Calcium Carbonate + Vit D 1 TAB PO SCH (20:09)
[2019-04-27] MEDS: MEROPENEM 1 GM/50 ML 1 GM in Premix Bag 1 BAG IVPB SCH ×2 (02:49→10:07)
[2019-04-27] MEDS: Acetaminophen/Codeine 30-300mg Tablet PO PRN ×2 (03:44→08:52)
[2019-04-27 04:42] LABS: #Eosinphils 0.7 thou/uL (0.0-0.7); #Lymphocytes 0.9 thou/uL (1.20-3.40); #Monocytes 0.9 thou/uL (0.11-0.59); #Neutrophils 3.8 thou/uL (1.40-6.50); %Basophils 0.1 % (0.0-1.0); %Eosinophils 11.2 % (0.0-10.0); %Lymphocytes 14.4 % (21.0-51.0); %Monocytes 14.8 % (0.0-10.0); %Neutrophils 59.6 % (42.0-75.0); Hemoglobin 12.9 g/dL (12.0-16.0); Mean Corpuscular HGB CONC 33.2 g/dL (32.0-36.0); Mean Corpuscular Hemoglobin 34.5 pg (27.0-31.0); Mean Platelet Volume 8.6 fL (7.4-10.4); Platelet Count 182 thou/uL (130-400); RBC Distribution Width 12.2 % (11.5-14.5); Red Blood Cell (RBC) Count 3.75 mill/uL (4.20-5.40); White Blood Cell (WBC) Count 6.3 thou/uL (4.8-10.8)
[2019-04-27 05:11] LABS: Anion Gap 16 mmol/L (10-20); BUN (Urea Nitrogen) 46 mg/dL (9.8-20.1); Calc. Creatinine Clearance 16 mL/min (70-130); Calcium 9.9 mg/dL (7.8-10.44); Carbon Dioxide 28 mmol/L (23-31); Chloride 97 mmol/L (98-107); Estimated GFR-MDRD 26; Glucose 97 mg/dL (83-110); Sodium 137 mmol/L (136-145)
[2019-04-27] MEDS: Sodium Chloride 0.9% 1,000 ML IV SCH (06:02)
[2019-04-27] MEDS: Levothyroxine Sodium 100 MCG TAB PO SCH (06:03)
[2019-04-27] MEDS: ALPRAZolam 0.25 MG TAB PO SCH (08:51)
[2019-04-27] MEDS: Apixaban 5 MG TAB PO SCH (08:51)
[2019-04-27] MEDS: Isosorbide Mononitrate (ER) 30 MG TAB PO SCH (08:51)
[2019-04-27] MEDS: Amlodipine 5 MG TAB PO SCH (08:52)
[2019-04-27] MEDS: Furosemide 20 MG TAB PO SCH (08:52)
[2019-04-27] MEDS: Docusate 100 MG CAP PO SCH (08:52)
[2019-04-27] MEDS: Potassium Chloride 10 MEQ TAB PO SCH (08:52)
[2019-04-27] MEDS: Multivit, Therapeutic 1 TAB PO SCH (08:52)
[2019-04-27] MEDS: Saccharomyces boulardii 250 MG CAP PO SCH (08:52)
[2019-04-27] MEDS: Loratadine 10 MG TAB PO SCH (08:52)
[2019-04-27] MEDS: Ferrous Sulfate 325 MG TAB PO SCH (08:52)
[2019-04-27] MEDS: Polyethylene Glycol 3350 17 GM Packet PO SCH (08:53)
[2019-04-27 12:12] VITALS: BP 132/80; TEMP 98
--- NOTE | 2019-04-28 01:08 | DIS ---
DATE OF ADMISSION: 04/23/2019 DATE OF DISCHARGE: 04/27/2019 PRIMARY CARE PROVIDER: Devi Cardenas MD DISCHARGE DIAGNOSES: 1. Sepsis. 2. Urinary tract infection. 3. Nephrolithiasis. 4. Obstructive uropathy. CONDITION OF PATIENT ON THE DAY OF DISCHARGE: Stable. I assessed Ms. Thapa on the day of discharge. She denies any chest pain or shortness of breath. Vital signs are stable. S1 and S2 are heard, regular. Lungs are clear to auscultation bilaterally. CONSULTATIONS DURING THIS HOSPITALIZATION: Infectious Diseases, Dr. Lipscomb and Urology, Dr. Forrester. FOLLOWUP APPOINTMENTS: The patient is advised to follow up with primary care provider in 3 days' time and with Dr. Forrester on May 10, 2019 at 11:30 a.m. DISCHARGE MEDICATIONS: 1. Xanax 0.25 mg daily. 2. Amlodipine 2.5 mg daily. 3. Calcium/vitamin D3 1 tablet daily. 4. Vitamin D3 1000 units daily. 5. Docusate 100 mg 2 times a day. 6. Pepcid 20 mg 2 times a day. 7. Ferrous sulfate 325 mg 2 times a day. 8. Isosorbide mononitrate 30 mg daily. 9. Levothyroxine 100 mcg daily. 10. Claritin 10 mg daily. 11. Multivitamins 1 tablet daily. 12. VESIcare 5 mg daily. 13. Trazodone 50 mg at bedtime. 14. Ampicillin 500 mg 4 times a day for at least 4 weeks. 15. Apixaban 2.5 mg 2 times a day. 16. Lasix 20 mg 2 times a day. 17. MiraLAX 17 g daily. 18. Potassium chloride 10 mEq 2 times a day. 19. Florastor 250 mg daily. 20. Acetaminophen p.r.n. 21. [place] p.r.n. 22. Dulcolax p.r.n. 23. Clonidine p.r.n. 24. DuoNeb p.r.n. 25. Milk of magnesia p.r.n. 26. Zofran p.r.n. 27. Phenazopyridine 195 mg 3 times a day as needed. 28. Trospium 20 mg 2 times a day as needed. HOSPITAL COURSE: Ms. Thapa is a pleasant 88-year-old lady, who was admitted to [facility] on April 23, 2019 for sepsis and urinary tract infection. Please refer to my history and physical note dated April 23, 2019 for further details. She was seen by Urology Service. On April 23, she underwent cystoscopy, right retrograde pyelography, double-J ureteral stent placement and Pompa catheter placement. She was also seen by Infectious Diseases Service. She has been recommended oral antibiotics for at least 4 weeks duration. Urine cultures grew Enterococcus faecalis that was resistant to ciprofloxacin, levofloxacin, and tetracycline, but was sensitive to ampicillin, imipenem, linezolid, nitrofurantoin, penicillin, piperacillin, and vancomycin. She improved clinically. She is being discharged back to [facility] in a stable condition. On the day of discharge, she has sodium 137, potassium 4.0, creatinine 1.86, white count 6,300, hemoglobin 12.9, and platelet count 182,000. Many thanks for allowing me to participate in your patient's care. Please feel free to contact me with any questions or concerns. DISCHARGE DESTINATION: [facility], from where the patient was admitted to the hospital. Her home health is being resumed. TIME SPENT: Total amount of time spent coordinating this discharge: 32 minutes. Job ID: [id number]
== END 2019-04-27 12:54 | disposition home or self-care (01) | DRG 854 ==
LOC: ERS 22:49 → SURG A 04-23 02:44
PROVIDERS: ADMIT Hospitalist; ATTEND Hospitalist
PROC: 0T768DZ Dilation of Right Ureter with Intraluminal Device, Via Natural or Artificial Opening Endoscopic (ICD-10-PCS; principal; 2019-04-23)
PROC: BT1D1ZZ Fluoroscopy of Right Kidney, Ureter and Bladder using Low Osmolar Contrast (ICD-10-PCS; 2019-04-23)
DX: A41.9 Sepsis, unspecified organism (principal); F11.20 Opioid dependence, uncomplicated; N13.6 Pyonephrosis; I13.0 Hypertensive heart and chronic kidney disease with heart failure and stage 1 through stage 4 chronic kidney disease, or unspecified chronic kidney disease; N18.4 Chronic kidney disease, stage 4 (severe); R64 Cachexia; Z68.1 Body mass index [BMI] 19.9 or less, adult; K21.9 Gastro-esophageal reflux disease without esophagitis; E78.5 Hyperlipidemia, unspecified; E03.9 Hypothyroidism, unspecified; J44.9 Chronic obstructive pulmonary disease, unspecified; M81.0 Age-related osteoporosis without current pathological fracture; Z95.0 Presence of cardiac pacemaker; Z96.641 Presence of right artificial hip joint; F32.9 Major depressive disorder, single episode, unspecified; F41.9 Anxiety disorder, unspecified; M19.90 Unspecified osteoarthritis, unspecified site; D63.1 Anemia in chronic kidney disease; Z95.1 Presence of aortocoronary bypass graft; B96.5 Pseudomonas (aeruginosa) (mallei) (pseudomallei) as the cause of diseases classified elsewhere; B95.2 Enterococcus as the cause of diseases classified elsewhere; Z86.718 Personal history of other venous thrombosis and embolism; I48.91 Unspecified atrial fibrillation; F03.90 Unspecified dementia, unspecified severity, without behavioral disturbance, psychotic disturbance, mood disturbance, and anxiety; I50.9 Heart failure, unspecified; H91.90 Unspecified hearing loss, unspecified ear; Z16.29 Resistance to other single specified antibiotic; Z90.49 Acquired absence of other specified parts of digestive tract; Z90.710 Acquired absence of both cervix and uterus; Z87.891 Personal history of nicotine dependence; Z87.442 Personal history of urinary calculi; Z79.01 Long term (current) use of anticoagulants; Z79.899 Other long term (current) drug therapy
CPT/HCPCS: 36415; 51701; 71045; 74176; 74420; 80048; 81001; 81003; 81015; 82550; 83690; 85025; 87040; 87077; 87086; 87186; 96361; 96365; 96375; A4353; C1758; C1769; J0696; J1100; J2001; J2185; J2405; J2704; J3010; J3490

== ENCOUNTER 2019-05-08 14:30 | Outpatient (CLI) | payer MEDICARE ==
--- NOTE | 2019-05-08 15:17 | CT ---
Head CT without contrast: 05/08/2019 COMPARISON: None HISTORY: Right arm and right leg weakness, confusion TECHNIQUE: Axial CT imaging at 5 mm intervals from vertex through skull base without contrast FINDINGS: The visualized paranasal sinuses and mastoid air cells are well aerated. There is extensive vasogenic edema within the left frontal lobe. There is a suggestion of a mass in t he left frontal region anteriorly/laterally, best seen on image 20, likely measuring in the 2 cm range. This is a new finding when compared to a 09/09/2017 exam. There is associated mass effect on th e frontal horn of the left lateral ventricle, which is flattened. In addition, there is left to right midline shift in the frontal region measuring approximately 7 mm at the axial level of the sept um pellucidum. No associated hemorrhage is seen. IMPRESSION: Prominent left-sided vasogenic edema, which is felt to be on the basis of an underlying i ntra-axial mass lesion. Recommend further assessment with contrast enhanced head CT. Results called to Dr. Cardenas at 3:15 PM on 05/08/2019.
== END 2019-05-08 14:31 | disposition home or self-care (01) ==
LOC: CT 14:30
PROVIDERS: ATTEND Internal Medicine
DX: R53.1 Weakness (principal); G93.6 Cerebral edema
CPT/HCPCS: 70450

== ENCOUNTER 2019-05-08 15:25 | Inpatient (IN) | payer MEDICARE ==
[2019-05-08 17:09] LABS: #Eosinphils 0.2 thou/uL (0.0-0.7); #Lymphocytes 1.1 thou/uL (1.20-3.40); #Monocytes 0.5 thou/uL (0.11-0.59); #Neutrophils 4.7 thou/uL (1.40-6.50); %Basophils 0.5 % (0.0-1.0); %Eosinophils 3.2 % (0.0-10.0); %Lymphocytes 16.1 % (21.0-51.0); %Monocytes 8.1 % (0.0-10.0); %Neutrophils 72.2 % (42.0-75.0); Hemoglobin 13.4 g/dL (12.0-16.0); Mean Corpuscular HGB CONC 33.4 g/dL (32.0-36.0); Mean Corpuscular Hemoglobin 34.5 pg (27.0-31.0); Mean Platelet Volume 7.2 fL (7.4-10.4); Platelet Count 374 thou/uL (130-400); RBC Distribution Width 12.3 % (11.5-14.5); Red Blood Cell (RBC) Count 3.87 mill/uL (4.20-5.40); White Blood Cell (WBC) Count 6.5 thou/uL (4.8-10.8)
[2019-05-08 17:35] LABS: ALT (SGPT) 17 U/L (8-55); AST (SGOT) 23 U/L (5-34); Albumin 4.6 g/dL (3.4-4.8); Alkaline Phosphatase 100 U/L (40-110); Anion Gap 15 mmol/L (10-20); BUN (Urea Nitrogen) 41 mg/dL (9.8-20.1); Bilirubin, Total 0.3 mg/dL (0.2-1.2); Calc. Creatinine Clearance 0 mL/min (70-130); Calcium 9.8 mg/dL (7.8-10.44); Carbon Dioxide 29 mmol/L (23-31); Chloride 99 mmol/L (98-107); Estimated GFR-MDRD 17; Globulin 2.9 g/dL (2.4-3.5); Glucose 111 mg/dL (83-110); Potassium 4.6 mmol/L (3.5-5.1); Protein, Total 7.5 g/dL (6.0-8.3); Sodium 138 mmol/L (136-145)
[2019-05-08 17:40] LABS: Bilirubin Negative (Negative); Blood, Urine 2+ (Negative); Clarity Turbid (Clear); Glucose, Urine (Dipstick) Normal (Negative); Leukocyte 500 Leu/uL (Negative); Nitrite Negative (Negative); Protein, Urine (Dipstick) 50 mg/dL (Neg-Trace); RBC/HPF 21-50 HPF (0-3); Renal Epithelial 0-3 HPF (None Seen); Urobilinogen Normal mg/dL (Less than 2); WBC/HPF Greater than 50 HPF (0-3)
[2019-05-08 17:48] LABS: Bacteria/HPF None Seen HPF (None Seen)
[2019-05-08] MEDS ORDERED: Dexamethasone 10 MG/ML VIAL ONE (18:53)
[2019-05-08] MEDS ORDERED: hydrALAZINE 20 MG/ML VIAL SLOW IVP PRN ×2 (20:44→23:17)
[2019-05-08 21:05] LABS: INR-International Normal Ratio 1.1; PTT 36.6 SEC (22.9-36.1); Prothrombin Time 13.7 SEC (12.0-14.7)
[2019-05-08] MEDS ORDERED: HOLD ALL BLOOD THINNERS FS PRN (21:20)
[2019-05-08] MEDS ORDERED: Acetaminophen 500 MG TAB ONE (21:23)
[2019-05-08 22:22] VITALS: BMI 19.0
[2019-05-08] MEDS ORDERED: Sodium Chloride 0.9% 1,000 ML IV SCH (22:30)
[2019-05-08] MEDS ORDERED: Ondansetron ODT 4 MG TAB PO PRN (23:17)
[2019-05-08] MEDS ORDERED: Ondansetron PF 4 MG/2 ML Vial IVP PRN (23:17)
[2019-05-08] MEDS: Sodium Chloride 0.9% 1,000 ML IV SCH (23:26)
[2019-05-08] MEDS: Dexamethasone 4 mg/ml Vial SLOW IVP SCH (23:27)
[2019-05-09] MEDS: Acetaminophen 500 MG TAB PO PRN ×3 (00:08→23:42)
--- NOTE | 2019-05-09 00:27 | CON ---
DATE OF CONSULTATION: 05/08/2019 This is Duncan Acevedo PA-C dictating a report for Brigido Prado MD. 50-minute initial patient evaluation of which greater than 50% of the exam was spent counseling and coordinating the patient's care. Remainder of the exam was spent in review of patient's medical records and review of appropriate imaging studies. CHIEF COMPLAINT: Confusion and altered mental status x1 week with left frontal brain mass. HISTORY OF PRESENT ILLNESS: Ms. Thapa is a pleasant 88-year-old female, who presents to [facility] for the above complaints. Her sons are at bedside and helps provide some of her history. The patient apparently has had some altered mental status including forgetfulness, word-finding difficulties, and confusion over the past 7 or more days. The patient's sons also noticed right-sided weakness somewhat, so that the patient has required use of her wheelchair quite a bit more. She has been living at an assisted living facility for the past 13 years. She has a history of left lower extremity DVT a few months ago and atrial fibrillation and is currently on Eliquis. She is not currently on aspirin according to the patient. She was a previous smoker for roughly 30 to 40 years, but quit more than 20 years ago. She does also have a pacemaker in place and sees Dr. Soto with Cardiology. It is unclear at this time as the patient has an MRI compatible pacemaker. The patient denies falls. Brain CT without contrast shows what appears to be a likely left frontal mass with significant surrounding vasogenic edema with about 6-7 mm of midline shift. There does not appear to be a component of intracranial hemorrhage at this time. There does not appear to be any hydrocephalus. Review of patient's laboratory data show white blood cell count within normal limits, as well as hemoglobin at 13.4. The patient's sodium is good at 138 and potassium is 4.6. She does have a history of renal disease and her creatinine is extremely high with very low GFR. It appears that the patient also has UTI, but has a history of this and also history of some type of bladder or ureteral stents placed by Dr. Forrester. PHYSICAL EXAMINATION: The patient is awake, alert, and appropriate. Her GCS is 15. She has full strength in the left upper and left lower extremities. However, she does have trace weakness into the right leg and moderate weakness into the right arm. Pronator drift is negative. She has no nystagmus on exam. Pupils are equal, but although minimally reactive bilaterally. She does appear to have a little bit of word-finding difficulties, but is able to somewhat carry on a conversation. She appropriately identifies a pen and define its purpose, although she is unable to define the definition of an island and her son also notes some difficulty with complex thought processes over the past several days. IMPRESSION DIAGNOSES: 1. Altered mental status, confusion, word-finding difficulties. 2. Right arm greater than right leg weakness. 3. Left frontal mass with significant surrounding vasogenic edema. PLAN: At this time, I have discussed the patient's case and imaging with Dr. Prado. The patient will be admitted by her medical colleagues. The patient does require medical workup including likely treatment of UTI, as well as possible workup for what may be a metastatic brain lesion. We would ideally like to get an MRI of the brain with and without contrast with stereotactic BrainLAB protocol. However, this appears to not be possible at this time given the patient's pacemaker. Medical colleagues are helping us determine if her pacemaker is compatible with MRI. If it is not which is likely the case, we will proceed with a CT scan of the brain with contrast to stereotactic BrainLAB protocol. Given the patient's decreased kidney function, however, we will likely need to hold on this. The patient will also require a CT scan of the chest, abdomen, and pelvis to determine if there is any malignant process. Again, given that the patient has stopped smoking, her lung cancer is low on the differential. However, again, we will need further information to determine if the brain lesion is secondary or primary. I discussed that I would also like the patient to have q.1 hour neuro checks and admitted to the ICU for close overnight observation, although at this point, she is neurologically intact. I would like her systolic blood pressure remain less than 150. I would like her to be n.p.o. at midnight. Please call with any changes in patient's neurologic status. Otherwise, we will follow up regarding the patient's pacemaker and kidney function, so that we may proceed with further testing. We will hold her Shanice on any other blood thinners. Job ID: [id number]
[2019-05-09] MEDS ORDERED: Ketorolac Tromethamine 30 MG/ML VIAL IVP PRN (00:47)
[2019-05-09] MEDS ORDERED: ALPRAZolam 0.25 MG TAB PO SCH (01:00)
--- NOTE | 2019-05-09 04:11 | HP ---
PRIMARY CARE PROVIDER: Dr. Devi Cardenas. CHIEF COMPLAINT: Confusion with right-sided weakness. HISTORY OF PRESENT ILLNESS: This is an 88-year-old female who presents to [facility] Emergency Department in transfer from Dr. Devi Cardenas's office where the patient was evaluated for confusion and associated right-sided weakness. The patient was apparently evaluated by her primary care provider, instructing her to present to the emergency room after concern for stroke-like symptoms. The patient underwent urgent CT imaging of the brain showing evidence of left frontal mass with associated vasogenic edema and mild midline shift. The patient was evaluated by the Neurosurgical Service with recommendations to initiate Decadron and monitor with serial neuro checks. The patient apparently complained of some right-sided weakness over the last 3 to 4 days with generalized weakness. The patient's history is significant for recent admission to [facility], discharge on 04/27/2019, after diagnosed with nephrolithiasis as well as associated urinary tract infection and sepsis with identified organism of Enterococcus species. The patient has been receiving ampicillin with plans for 4-week course of antibiotics. The patient resides at [facility] over the last 13 years and is ambulatory with a rolling walker. The patient has had more difficulty ambulating due to right-sided weakness of her arm and lower extremity. The patient denied any recent falls or trauma. PAST MEDICAL HISTORY: 1. Nephrolithiasis with urinary tract infection status post ureteral stent placement. 2. Sepsis secondary to urinary tract infection with Enterococcus species, on current ampicillin. 3. Gastroesophageal reflux disease. 4. Chronic anemia. 5. Hypertension. 6. Chronic kidney disease stage 2 to 3. 7. Hyperlipidemia. 8. Hypothyroidism. 9. Osteoporosis. 10. Chronic obstructive pulmonary disease. PAST SURGICAL HISTORY: 1. Status post cholecystectomy. 2. Status post appendectomy. 3. Status post hysterectomy. 4. Status post tonsillectomy. 5. Status post right total hip arthroplasty. 6. Status post ureteral stents. 7. Status post left hip repair. 8. Status post pacemaker placement. CURRENT MEDICATIONS: Based on discharge summary on 04/27/2019, 1. Xanax 0.25 mg p.o. daily. 2. Amlodipine 2.5 mg p.o. daily. 3. Calcium with vitamin D3 one tablet p.o. daily. 4. Vitamin D3 1000 units p.o. daily. 5. Docusate 100 mg p.o. b.i.d. 6. Pepcid 20 mg p.o. b.i.d. 7. Ferrous sulfate 325 mg p.o. b.i.d. 8. Isosorbide mononitrate 30 mg p.o. daily. 9. Levothyroxine 100 mcg p.o. daily. 10. Claritin 10 mg p.o. daily. 11. Multivitamin 1 tablet p.o. daily. 12. VESIcare 5 mg p.o. daily. 13. Trazodone 50 mg p.o. at bedtime. 14. Ampicillin 500 mg p.o. q.i.d. 15. Apixaban 2.5 mg p.o. b.i.d. 16. Lasix 20 mg p.o. b.i.d. 17. MiraLAX 17 g p.o. daily. 18. Potassium chloride 10 mEq p.o. b.i.d. 19. Florastor 250 mg p.o. daily. 20. p.o. t.i.d. p.r.n. 21. Trospium 20 mg p.o. b.i.d. ALLERGIES: NO KNOWN DRUG ALLERGIES. FAMILY HISTORY: No inheritable diseases per the patient's report. SOCIAL HISTORY: No current alcohol, tobacco, or illicit drug use. Resides at [facility] x13 years. Ambulates with a rolling walker. No recent falls. REVIEW OF SYSTEMS: CONSTITUTIONAL: Negative for weight loss or gain, ability to conduct usual activities. SKIN: Negative for rash, itching. EYES: Negative for double vision, pain. ENT/MOUTH: Negative for nose bleeding, neck stiffness, pain, tenderness. CARDIOVASCULAR: Negative for palpitations, dyspnea on exertion, orthopnea. RESPIRATORY: Negative for shortness of breath, wheezing, cough, hemoptysis, fever or night sweats. GASTROINTESTINAL: Negative for poor appetite, abdominal pain, heartburn, nausea, vomiting, constipation, or diarrhea. GENITOURINARY: Negative for urgency, frequency, dysuria, nocturia. MUSCULOSKELETAL: Negative for pain, swelling. NEUROLOGIC/PSYCHIATRIC: Negative for anxiety, depression. ALLERGY/IMMUNOLOGIC: Negative for skin rash, bleeding tendency. Otherwise, negative except as stated per HPI. PHYSICAL EXAMINATION: VITAL SIGNS: On admission, blood pressure 144/84, respiratory rate is 30, temperature 97.8 degrees Fahrenheit, O2 saturation is 98% on room air, heart rate is 84. GENERAL APPEARANCE: This is an 88-year-old female, alert and oriented x3, pleasant, responsive, in no acute distress. HEENT: Pupils are equal, round, reactive to light and accommodation. Extraocular muscles are intact. No scleral icterus. No conjunctival injection. Nares patent. OP is clear. Multiple missing teeth noted. NECK: Supple. No cervical adenopathy. No thyromegaly. No carotid bruits. No JVD appreciated. Cervical spine with full active and passive range of motion. No meningeal signs noted. CHEST: Lungs are clear to auscultation bilaterally. CARDIOVASCULAR: S1 and S2 with irregular rate and rhythm. Dual lead pacemaker device in place. ABDOMEN: Rounded, soft, nontender, nondistended. Bowel sounds are positive in all 4 quadrants. There is no hepatosplenomegaly. No abdominal bruits. No rebound or guarding appreciated. EXTREMITIES: Warm and dry with fair turgor. No clubbing, cyanosis, or asymmetric edema appreciated. Pulses palpable distally at the dorsalis pedis, posterior tibial, and popliteal arteries bilaterally. Capillary refill less than 2 seconds. NEUROLOGIC: Cranial nerves 2 through 12 are grossly intact. No focal weakness appreciated on current exam. Right-hand dominant. Not observed ambulatory during this exam. PERTINENT LABORATORY AND X-RAY FINDINGS: Sodium 138, potassium 4.6, chloride 99, CO2 of 29, BUN 41, creatinine 2.67, estimated GFR of 17, glucose 111, calcium 9.8. LFTs within normal limits. CBC showed a white blood cell count of 6.5, hemoglobin 13.4, hematocrit 40.1, MCV 104, platelet count 374, normal differential. Urinalysis showed a pH of 6.5, specific gravity 1.016, positive protein, blood, and leukocyte esterase, 21-50 rbc's per high-power field and greater than 50 wbc's per high-power field. CT of the brain without contrast dated 05/08/2019, compared to previous CT of the brain in August 2017, showed prominent left-sided vasogenic edema, likely secondary to intra-axial mass. Left to right midline shift in the frontal region measuring approximately 7 mm. ASSESSMENT AND PLAN: 1. Brain neoplasm. The patient will be admitted to the intermediate care unit. Continue Decadron 4 mg IV q.6 hours per neurosurgical recommendations. Continue neurosurgical evaluation and recommendations for management versus conservative measures. Consider MRI imaging after confirming whether current pacemaker device is MRI compatible. 2. Right-sided weakness secondary to #1, improved clinically at the time of this exam currently. Continue supportive management and serial neuro checks. PT and OT evaluation in the a.m. 3. Acute kidney injury on chronic kidney disease stage 4. Avoid nephrotoxic agents and limit contrast exposure. Intravenous normal saline at 50 mL/h. Repeat creatinine in the a.m. 4. Urinary tract infection with Enterococcus species. Continue ampicillin 500 mg p.o. q.6 hours. 5. Hypertension. Resume home antihypertensive regimen and monitor clinical response. 6. Prophylaxis. SCDs while in bed. Pepcid 20 mg p.o. b.i.d. PT and OT evaluation for functional assessment. Palliative Care consult for goals of care and disease trajectory. CODE STATUS: Do not attempt resuscitation confirmed by the patient's son who is also medical power of document review attorney. Job ID: [id number]
[2019-05-09 04:59] LABS: #Lymphocytes 0.8 thou/uL (1.20-3.40); #Neutrophils 7.2 thou/uL (1.40-6.50); %Basophils 0.2 % (0.0-1.0); %Eosinophils 0.1 % (0.0-10.0); %Lymphocytes 9.6 % (21.0-51.0); %Monocytes 0.5 % (0.0-10.0); %Neutrophils 89.5 % (42.0-75.0); Mean Corpuscular HGB CONC 33.1 g/dL (32.0-36.0); Mean Corpuscular Hemoglobin 34.1 pg (27.0-31.0); Mean Platelet Volume 7.9 fL (7.4-10.4); Platelet Count 329 thou/uL (130-400); RBC Distribution Width 12.3 % (11.5-14.5); Red Blood Cell (RBC) Count 3.53 mill/uL (4.20-5.40)
[2019-05-09 05:12] LABS: Anion Gap 14 mmol/L (10-20); BUN (Urea Nitrogen) 42 mg/dL (9.8-20.1); Calc. Creatinine Clearance 13 mL/min (70-130); Calcium 8.9 mg/dL (7.8-10.44); Carbon Dioxide 23 mmol/L (23-31); Chloride 106 mmol/L (98-107); Estimated GFR-MDRD 22; Glucose 182 mg/dL (83-110); Potassium 4.5 mmol/L (3.5-5.1); Sodium 138 mmol/L (136-145)
[2019-05-09] MEDS: Levothyroxine Sodium 100 MCG TAB PO SCH (05:20)
[2019-05-09] MEDS: Dexamethasone 4 mg/ml Vial SLOW IVP SCH ×4 (05:20→23:41)
[2019-05-09] MEDS ORDERED: Sodium Chloride 0.65% Nasal 44 ML BOT EA NARE PRN (07:48)
[2019-05-09] MEDS ORDERED: Bisacodyl 10 MG SUPP PR PRN (07:48)
[2019-05-09] MEDS ORDERED: Loratadine 10 MG TAB PO PRN (07:48)
[2019-05-09] MEDS ORDERED: Artificial Tears 18 DROP/0.9 ML EA EYE PRN (07:48)
[2019-05-09] MEDS ORDERED: Diabetic Tussin 200 MG/10 ML UDCUP PO PRN (07:48)
[2019-05-09] MEDS ORDERED: Senokot S 8.6-50 MG TAB PO PRN (07:48)
[2019-05-09] MEDS ORDERED: Cepastat Lozenges 1 LOZ PO PRN (07:48)
[2019-05-09] MEDS ORDERED: Apixaban 2.5 MG TAB PO SCH (09:00)
[2019-05-09] MEDS ORDERED: AMPICILLIN TRIHYDRATE 500 MG PO SCH (09:00)
[2019-05-09] MEDS: Isosorbide Mononitrate (ER) 30 MG TAB PO SCH (10:42)
[2019-05-09] MEDS: Trospium 20 MG TAB PO SCH (10:42)
[2019-05-09] MEDS: Saccharomyces boulardii 250 MG CAP PO SCH (10:42)
[2019-05-09] MEDS: Famotidine 20 MG TAB PO SCH (10:42)
--- NOTE | 2019-05-09 10:45 | PDOC.HOSPP ---
- Subjective Encounter Date: 05/09/19 Encounter Time: 09:00 Subjective: Patient seen and examined. No new complaints. No overnight events - Objective Vital Signs & Weight: Vital Signs (12 hours) Temp Pulse Ox 05/09/19 08:00 97.3 F L 05/09/19 06:50 97.0 F L 05/09/19 03:17 97.4 F L 05/08/19 23:00 100 05/08/19 22:45 97.8 F Weight Weight 97 lb 6.4 oz Most Recent Monitor Data Heart Rate from ECG 82 NIBP 149/77 NIBP BP-Mean 101 Respiration from ECG 24 SpO2 99 I&O: 05/08/19 05/09/19 05/10/19 06:59 06:59 06:59 Intake Total 850 Balance 850 Result Diagrams: 05/09/19 04:32 05/09/19 04:32 EKG Reviewed by me: Yes (pacing) Hospitalist ROS - Review of Systems ENT: denies: ear pain, ear discharge, nose pain, nose discharge, nose congestion , mouth pain, mouth swelling, throat pain, throat swelling, other Respiratory: denies: cough, dry, shortness of breath, hemoptysis, SOB with excertion, pleuritic pain, sputum, wheezing, other Cardiovascular: denies: chest pain, palpitations, orthopnea, paroxysmal noc. dyspnea, edema, light headedness, other Gastrointestinal: denies: nausea, vomiting, abdominal pain, diarrhea, constipation, melena, hematochezia, other Genitourinary: denies: dysuria, frequency, incontinence, hematuria, retention, other Musculoskeletal: denies: neck pain, shoulder pain, arm pain, back pain, hand pain, leg pain, foot pain, other - Medication Medications: Active Medications Generic Name Dose Route Start Last Admin Trade Name Freq PRN Reason Stop Dose Admin Acetaminophen 1,000 mg 05/08/19 23:17 05/09/19 00:08 Tylenol PO 1,000 mg Q6H PRN Administration Mild Pain (1-3) Dexamethasone 4 mg 05/08/19 23:59 05/09/19 05:20 Decadron SLOW IVP 4 mg Q6HR MICHAEL Administration Sodium Chloride 1,000 mls @ 50 mls/hr 05/08/19 23:30 05/08/19 23:26 Normal Saline 0.9% IV 1,000 mls .Q20H MICHAEL Administration Ampicillin Sodium 500 mg/ 100 mls @ 200 mls/hr 05/08/19 23:59 05/09/19 05:20 Sodium Chloride IVPB 05/22/19 23:59 100 mls Q6HR MICHAEL Administration Levothyroxine Sodium 100 mcg 05/09/19 06:00 05/09/19 05:20 Synthroid PO 100 mcg 0600 MICHAEL Administration - Exam General Appearance: NAD, awake alert Eye: PERRL, anicteric sclera ENT: normocephalic atraumatic, no oropharyngeal lesions Neck: supple, symmetric, no JVD Heart: RRR, no murmur, no gallops, no rubs Respiratory: CTAB, no wheezes, no rales, no ronchi Gastrointestinal: soft, non-tender, non-distended, normal bowel sounds Extremities: no cyanosis, no clubbing, no edema Skin: normal turgor, no lesions Neurological: cranial nerve grossly intact Musculoskeletal: normal tone, normal strength Psychiatric: normal affect, normal behavior Hosp A/P (1) Brain mass Code(s): G93.89 - OTHER SPECIFIED DISORDERS OF BRAIN Status: Acute (2) Acute renal failure superimposed on stage 3 chronic kidney disease Code(s): N17.9 - ACUTE KIDNEY FAILURE, UNSPECIFIED; N18.3 - CHRONIC KIDNEY DISEASE, STAGE 3 (MODERATE) Status: Acute (3) Complicated UTI (urinary tract infection) Code(s): N39.0 - URINARY TRACT INFECTION, SITE NOT SPECIFIED Status: Acute (4) Chronic pain syndrome Code(s): G89.4 - CHRONIC PAIN SYNDROME Status: Chronic (5) Vertebral compression fracture Code(s): M48.50XA - COLLAPSED VERTEBRA, NEC, SITE UNSP, INIT Status: Chronic (6) Anxiety and depression Code(s): F41.9 - ANXIETY DISORDER, UNSPECIFIED; F32.9 - MAJOR DEPRESSIVE DISORDER, SINGLE EPISODE, UNSPECIFIED Status: Chronic (7) Atrial fibrillation Code(s): I48.91 - UNSPECIFIED ATRIAL FIBRILLATION Status: Chronic Qualifiers: Atrial fibrillation type: paroxysmal Qualified Code(s): I48.0 - Paroxysmal atrial fibrillation (8) COPD (chronic obstructive pulmonary disease) Status: Chronic (9) GERD (gastroesophageal reflux disease) Code(s): K21.9 - GASTRO-ESOPHAGEAL REFLUX DISEASE WITHOUT ESOPHAGITIS Status: Chronic Qualifiers: (10) HTN (hypertension) Code(s): I10 - ESSENTIAL (PRIMARY) HYPERTENSION Status: Chronic Qualifiers: (11) Hypothyroidism Code(s): E03.9 - HYPOTHYROIDISM, UNSPECIFIED Status: Chronic Qualifiers: (12) Anemia, normocytic normochromic Code(s): D64.9 - ANEMIA, UNSPECIFIED Status: Resolved - Plan old records reviewed/req, plan discussed w/ family, continue antibiotics 05/09/19- today CT chest abdomen and pelvis with oral contrast, will try to get MRI brain, will avoid contrast iv due to renal dysfunction, continue gentle IVF , continue ampicillin, pt is planned for ureteral stent removal tomorrow, will consult urology for that, neurosurgery following, continue decadron for now, on hold chronic anticoagulation, neuro monitoring, prognosis guarded, discussed with son bedside, further plan based on test result. medication reviewed as above, symptomatic treatment.
--- NOTE | 2019-05-09 11:01 | CT ---
EXAM: CT chest, abdomen, and pelvis without contrast: HISTORY: Brain lesion. Evaluate for malignancy. COMPARISON: Noncontrast CT abdomen and pelvis on 04/23/2019. FINDINGS: CT THORAX: Lungs: A 4 mm noncalcified pulmonary nodule is seen in the right upper lobe (image 10, series 3). Sma ll approximately 4 mm pulmonary nodule is also seen in the more inferior aspect of the right upper lobe (image 34, series 3). No additional noncalcified pulmonary nodule is appreciated. There are biba silar linear densities present probably due to atelectasis and/or scarring. Calcified granuloma is seen at the right lung base. Pleura: No pleural effusion. Lymph nodes: Lack of intravenous contrast limits evaluation of mediastinal and hilar structures, but no obvious enlarged lymph nodes are seen. Mediastinum: Dual lead left subclavian cardiac pacemaking device is noted in place. The heart is mild ly enlarged. Dense vascular calcifications are seen in the coronary arteries as well as involving the thoracic aorta. Chest wall: No abnormalities CT ABDOMEN AND PELVIS: Liver: No definite lesion is present within the liver on this nonenhanced CT scan exam. There is sara fact seen through a portion of the liver. Gallbladder: Postcholecystectomy changes are noted. There is a stable degree of biliary ductal dilata tion.\ Pancreas: Grossly normal nonenhanced CT appearance. Spleen:Grossly normal nonenhanced CT appearance Adrenal glands: Grossly normal nonenhanced CT appearance. There is a small hypodense nodule seen josé miguel cent to the right adrenal gland which may represent a nonenlarged lymph node. This lymph node is present on multiple prior studies in 2018 and 2016. Kidneys: There has been interval placement of a right ureteral stent with the proximal portion overly ing the superior pole right renal cortex. The retrograde urogram on 04/23/2019 demonstrated the proximal portion of the ureteral stent in a peripheral upper pole renal calyx. The distal portion of the right ureteral stent appears to be within the distal right ureter. Nonobstructing inferior pole renal calculi are again seen. The degree of hydronephrosis on the right has improved. The large calcu joya at the right UPJ noted on the prior exam is not seen on this study likely due to interval treatment. Urinary Bladder: Mostly obscured due to shadowing from postsurgical changes involving each hip. Reproductive organs: Limited evaluation of the pelvis due to artifact, but the uterus does appear michelle gically absent. Bowel: Normal caliber loops of opacified small bowel. Moderate amount of retained fecal material is s een throughout the colon. Adenopathy:Lack of intravenous contrast as well as lack of intra-abdominal fat limits evaluation, but no definite enlarged lymph nodes are appreciated. Peritoneum: No free fluid or fluid collection is seen. No free intraperitoneal gas is identified. Abdominal wall: No abnormalities seen. Osseous structures: Multiple compression fractures involving thoracic and lumbar vertebral bodies are noted. These fractures were present on the prior CT of the thorax on 02/19/2019. The compression fractures/burst fractures involving the lower thoracic and upper lumbar spine were also present on CT abdomen on 04/23/2019. IMPRESSION: 1. Nonspecific subcentimeter pulmonary nodules in the right upper lobe each measuring 4 mm. 2. Right ureteral stent noted in place with proximal portion overlying the region of the right renal cortex superiorly. Prior retrograde urogram study noted that the proximal portion of the ureteral stent was in a peripheral upper pole renal calyx. There has been interval decrease in right hydroneph rosis with only mild right hydronephrosis present on the current exam. The proximal right ureteral calculus is no longer visualized. 3. Stable nonobstructing bilateral renal calculi. 4. Postcholecystectomy changes. 5. Mild cardiomegaly. 6. Dense vascular calcifications. 7. Evidence of constipation. 8. No definite enlarged lymph nodes are appreciated within the chest, abdomen, or pelvis. 9. Multiple compression fractures as well as burst type fractures involving thoracic and lumbar spine .
[2019-05-09] MEDS: HYDROcodone/Acetaminophen 5/325 mg Tablet PO PRN ×3 (13:08→21:07)
[2019-05-09] MEDS: Piperacillin/Tazobactam 3.375 GM in Sodium Chloride 0.9% 100 ML IVPB SCH ×3 (13:09→23:41)
--- NOTE | 2019-05-09 13:55 | PRG ---
DATE OF SERVICE: 05/09/2019 SUBJECTIVE: Ms. Thapa is an 88-year-old woman, who presented with aphasia yesterday. Head CT without contrast demonstrates approximately a 2 cm mass in the left middle frontal gyrus, perhaps in the left middle frontal gyrus region with significant vasogenic edema. I am concerned about metastasis. I had a long discussion with her and her sons. Neurologically, she is a bit confused, but otherwise nonfocal. Her speech is fluent. She has been initiated on Decadron. She has been hydrated. She has a pacemaker that is MRI compatible, and while she has renal insufficiency, her creatinine is reduced to 2.13 with gentle hydration. As such, we will pursue stereotactic MRI of the brain without and with contrast. I have spoken with the family and let them know at her age of 88 and coming from assisted living facility. If we were to be aggressive, they would be a prolonged hospital course likely, but nevertheless, my recommendation should be aggressive then we would want to do adjuvant therapy as well. They are unsure what they want to do at this point, and I completely understand. Then, I will try to talk with her mother some more there has been some discrepancy regarding her code status that is being marked out as well. DIAGNOSES: 1. Left frontal mass. 2. This is a 50-minute initial hospital visit note, in which 50 minutes were spent in reviewing the imaging record, evaluation, examination of the patient, formulation of plan greater than 50% of the time was spent in counseling. Job ID: [id number] MTDD
--- NOTE | 2019-05-09 15:17 | MRI ---
Brain MRI with and without contrast: 05/09/2019 COMPARISON: None HISTORY: New intracranial mass on the left with associated mass effect and vasogenic edema TECHNIQUE: Multiplanar multisequence MR imaging of the brain obtained with and without contrast. The ordering physician felt that contrast media was clinically warranted in the clinical scenario despite renal dysfunction. The patient and the patient's family was counseled on risks of IV gadolinium in the setting of abnorm ally low GFR. Informed consent was obtained prior to performing the examination. FINDINGS: The diffusion weighted imaging demonstrates no evidence for acute infarction. There is a mass lesion in the left frontal region which is dural based and demonstrates avid enhancem ent. It is heterogeneously isointense on T2-weighted imaging, mildly hyperintense on FLAIR imaging, and heterogeneously hypointense on precontrast T1-weighted imaging. This lesion appears extra-axial i n nature and measures 3.2 x 3.2 x 2.7 cm. There is marked surrounding vasogenic edema within the frontal lobe on the left. There is associated mass effect on the frontal horn of the left lateral chavez tricle and there is midline shift from left to right measuring 7 mm at the level of the septum pellucidum. The axial gradient echo imaging demonstrates a few foci of blooming artifact within the left frontal lesion which may signify small volume calcification or hemorrhage. The adjacent calvarium demonstrate normal signal intensity. Arterial flow voids at the axial level of the skull base appear unremarkable on the T2-weighted imagi ng. The visualized paranasal sinuses and mastoid air cells appear well-aerated. The postcontrast imaging demonstrates no additional enhancing lesion. IMPRESSION: Avidly enhancing dural based extra-axial mass in the left frontal region with associated vasogenic edema and midline shift/mass effect. Of note, this lesion was not present on prior head CT performed 09/09/2017. This could represent a dural based metastatic lesion. Hemangiopericytoma or atypical meningioma are p ossibilities.
--- NOTE | 2019-05-09 16:26 | CON ---
DATE OF CONSULTATION: HISTORY OF PRESENT ILLNESS: This is an 88-year-old female, who is in the [facility] has been complaining of mental status change, confusion for a period of time. CT head was done, which showed a large left frontal vasogenic edema and a mass. She admitted, started on Decadron. She sees Dr. Chandler in office for COPD. This morning, she is complaining of abdominal pain. No nausea or vomiting. PAST MEDICAL HISTORY: Pertinent for, 1. Recent admission for hydronephrosis secondary to ureteral stent. 2. Hypertension. 3. Hypothyroidism. 4. Osteoporosis. 5. Renal failure. 6. Previous blood clots. 7. Previous cardiac arrhythmias. PAST SURGICAL HISTORY: Cholecystectomy, appendectomy, hysterectomy, tonsillectomy, right hip, ureteral stents, left hip repair, and pacemaker. SOCIAL HISTORY: Former smoker. Quit 10 years ago. Minimal alcohol intake. HOME MEDICATIONS: From the [facility] include, 1. VESIcare 5. 2. Synthroid 100. 3. Ismo 30. 4. Eliquis 2.5. 5. Trazodone 50. 6. Catapres. 7. Potassium. 8. Laxative. 9. DuoNeb. 10. Hydrocodone. 11. Lasix. 12. Pepcid. 13. Amlodipine. ALLERGIES: NONE. REVIEW OF SYSTEMS: Otherwise 10-point negative. PHYSICAL EXAMINATION: GENERAL: Cachectic female, who appears to be in no distress. VITAL SIGNS: Blood pressure is 120/80, pulse , respiratory rate 18, and saturations 95%. CHEST: Bilateral wheezing. CARDIAC: Normal S1 and S2. No gallops. ABDOMEN: No masses. LABORATORY DATA: Shows otherwise recent CT abdomen with right ureteral stone. White count 80, H and H 12 and 36. Creatinine is 2.3. Urine shows greater than 50 wbc's. ASSESSMENT: 1. Left temporoparietal mass, primary versus metastatic disease. 2. Chronic obstructive pulmonary disease, renal failure, chronic pain, pacemaker, advanced age. Pulmonary purdy, restart home neb treatments. We will notify Dr. Chandler for the imaging studies, chest, abdomen, and pelvis CT to rule out primary versus metastatic disease. DISPOSITION: As per Neurosurgery. We will follow. Consultation note, 70 minutes, 50% direct patient care. Job ID: [id number]
--- NOTE | 2019-05-09 19:07 | CON ---
DATE OF CONSULTATION: 05/09/2019 REASON FOR CONSULT: History of urolithiasis. HISTORY OF PRESENT ILLNESS: Ms. Thapa is an 88-year-old female, well known to me. She was previously followed by Dr. Forbes for recurrent kidney stones. She is a resident of [facility], extended family, son, power of aircraft skin burnisher at bedside. She was recently admitted due to recurrence of her hydronephrosis due to proximal ureteral calculi with Enterococcus UTI. She underwent ureteral stent placement in April 23 and had an appointment with me tomorrow preop for ureteroscopy and laser lithotripsy next week. Of note, the patient is narcotic dependent, chronic pain due to multiple fractures of her spine. The patient is admitted as she had mental status changes, right hemiparesia when was told to present to the emergency room by her PCP Dr. Cardenas. Workup demonstrates a newly appreciated brain mass, and Neurosurgery has been consulted. MRI pending. Chart was reviewed. PAST MEDICAL HISTORY: Hypertension, followed by Dr. Soto; arthritis; depression; pelvic fracture; recurrent UTIs; dyslipidemia; COPD; recurrent kidney stones; history of syncope; GERD with esophagitis; chronic kidney disease, followed by Dr. Lehman; anxiety. PAST SURGICAL HISTORY: 1. CABG. 2. Knee replacement. 3. Hysterectomy. 4. Pacemaker. 5. Laparoscopic cholecystectomy. 6. Has undergone multiple ureteroscopies by Dr. Forbes in 2016, 2016, and 2018 as well. 7. Underwent cardioversion in December 2017. 8. Cysto, bilateral retrograde stent exchange in January, subsequent stent pull in January 2018. She recently underwent cysto, right 6 x 24 double-J ureteral stent on April 23, 2019. CURRENT MEDICATIONS: Include, 1. Tylenol. 2. DuoNeb. 3. Ampicillin. 4. Dulcolax. 5. Pepcid. 6. Hydrocodone. 7. [place]. 8. Imdur. 9. Loperamide. 10. Claritin. 11. Zofran. 12. Trospium. ALLERGIES: SHE IS NOT ALLERGIC TO ANYTHING. TEN-POINT REVIEW OF SYSTEMS ABOVE, OTHERWISE NONCONTRIBUTORY. PHYSICAL EXAMINATION: GENERAL: She has baseline dementia, recognizes her family. VITAL SIGNS: Stable. Afebrile. HEENT: Grossly unremarkable. HEART: Regular. LUNGS: Decreased inspiratory effort. ABDOMEN: Soft. No rigidity. No rebound. She does have subjective discomfort in the right lower quadrant suprapubic region. Complains of a diffuse lower back pain. EXTREMITIES: No cyanosis, clubbing, or edema. PSYCHIATRIC: Baseline. She has a history of anxiety and depression. She has had undergone a full neurologic assessment by Neurosurgery. PERTINENT LABORATORY DATA: White count 8 and hemoglobin 12, platelets 329. INR is 1.1, PTT 36. Creatinine today is 2.1, which is near her baseline. UA on May 08, is a contaminated specimen. Culture is pending. There was a straight catheterization. UA C and S May 07 with no epithelials with urine culture demonstrating yeast species and low count gram negative annika. I will call microbiology and have this worked up. DIAGNOSTIC DATA: 1. CT of the abdomen and pelvis and chest with contrast demonstrates nonspecific pulmonary nodules. a. Right ureteral stent with interval decrease in right hydronephrosis. Previous proximal ureteral stone not obviously visualized. b. Stable nonobstructing renal calculi, cardiomegaly, constipation, multiple compression fractures. 2. CT of the head demonstrates left-sided vasogenic edema may be due to underlying mass. MRI is pending. IMPRESSION AND PLAN: Ms. Thapa is an 88-year-old female, narcotic dependent with chronic back pain, multiple comorbidities as above with advanced age with history of recurrent kidney stone, recently admitted in April due to Enterococcus urinary tract infection, right flank pain with positive urine culture obstructing ureteral calculi, status post stent. The patient is tentatively scheduled for ureteroscopy and laser lithotripsy next Monday. We will call microbiology to read sensitivity and gram-negative annika. She previously had Enterococcus in her urine, currently on ampicillin. Prior urine demonstrates component of Pseudomonas. Her previous Pseudomonas was sensitive to Zosyn For now, I will switch her antibiotics to Zosyn until Infectious Disease, Dr. Lipscomb has been formally consulted regarding antibiotic regimen. Regarding her disposition, I discussed with the patient and family at bedside regarding her clinical issues of concern, advanced age, and new possible brain mass. If surgical intervention to proceed with ureteroscopy, she will need to be cleared by Neurosurgery and Medical Service. If they are contemplating hospice and palliative care, we discussed options of cysto stent pull under local in observation with full understanding that renal failure , sepsis may ensue. They will inform me regarding their final disposition, pending MRI, and further Neurosurgery input. Job ID: [id number] MTDD
[2019-05-09] MEDS: Sodium Chloride 0.9% 1,000 ML IV SCH (21:07)
[2019-05-10] MEDS: HYDROcodone/Acetaminophen 5/325 mg Tablet PO PRN ×4 (01:12→20:42)
[2019-05-10] MEDS: Dexamethasone 4 mg/ml Vial SLOW IVP SCH (05:19)
[2019-05-10] MEDS: Acetaminophen 500 MG TAB PO PRN ×2 (05:19→12:11)
[2019-05-10] MEDS: Piperacillin/Tazobactam 3.375 GM in Sodium Chloride 0.9% 100 ML IVPB SCH ×4 (05:19→23:35)
[2019-05-10] MEDS: Levothyroxine Sodium 100 MCG TAB PO SCH (05:19)
--- NOTE | 2019-05-10 07:56 | PRG ---
DATE OF SERVICE: 05/10/2019 SUBJECTIVE: The patient appears to be resting comfortably. Easily arousable. OBJECTIVE: VITAL SIGNS: Stable and afebrile. ABDOMEN: Soft. No rigidity. No rebound. Some tenderness in the right lower quadrant on deep palpation. EXTREMITIES: No cyanosis, clubbing, or edema. PERTINENT LABS: White count of 8, hemoglobin 12, and platelet 329. INR is 1.1 and PTT of 36. Creatinine 2.1, which is near her baseline. Repeat urine culture May 08, negative thus far. Recent culture May 07, yeast and gram-negative. April 26, Enterococcus. IMPRESSION AND PLAN: 1. Ms. Thapa is an 88-year-old female, narcotic dependent with multiple comorbidities, with recurrent kidney stone and prior history of urosepsis. She underwent ureteral stent placement recently due to obstructing right ureteral calculi. Restaging CT demonstrates stable stone burden, stent in position with decompression of the right collecting system. Although the right proximal ureteral calculi is not obviously present, I cannot exclude that it is still present. 2. Brain mass, likely metastatic per Neurosurgery. Final disposition is pending. Given her advanced age and comorbidities, family disposition is pending regarding palliative hospice care versus proceeding with Neurosurgery diagnostic evaluation and urologic intervention. I will follow along, as final disposition is pending with family consultation as she presents with new brain mass. Dr. Guerra covering me this weekend. Infectious Disease consult has been provided and ordered due to history of sepsis. Continue Zosyn unless changed by Dr. Lipscomb. Job ID: [id number] MTDD
[2019-05-10] MEDS: Saccharomyces boulardii 250 MG CAP PO SCH (08:48)
[2019-05-10] MEDS: Trospium 20 MG TAB PO SCH (08:48)
[2019-05-10] MEDS: Isosorbide Mononitrate (ER) 30 MG TAB PO SCH (08:48)
[2019-05-10] MEDS: Famotidine 20 MG TAB PO SCH (08:48)
--- NOTE | 2019-05-10 09:24 | PRG ---
DATE OF SERVICE: 05/10/2019 SUBJECTIVE: The patient is doing okay. She is pleasantly confused. OBJECTIVE: VITAL SIGNS: Temperature is 98.5, pulse 80, blood pressure 130/70, and O2 saturation 98%. HEENT: Unremarkable. NECK: No JVD. CHEST: Clear to auscultation. CARDIAC: S1 and S2. Regular. ABDOMEN: Soft. EXTREMITIES: No edema. ASSESSMENT: 1. Brain tumor. 2. Underlying chronic obstructive pulmonary disease. PLAN: Pulmonary status is currently stable. Waiting for disposition regarding her brain lesion. My feeling is the family is going to look for conservative measures. She can be transferred out to the regular floor at any time. Job ID: [id number]
--- NOTE | 2019-05-10 09:58 | PDOC.HOSPP ---
- Subjective Encounter Date: 05/10/19 Encounter Time: 07:30 Subjective: Patient seen and examined. No new complaints. No overnight events - Objective Vital Signs & Weight: Vital Signs (12 hours) Temp Pulse Resp Pulse Ox 05/10/19 07:25 98.5 F 05/10/19 06:48 85 20 100 05/10/19 03:14 97.5 F L 05/09/19 23:51 85 21 H 100 05/09/19 23:00 97.3 F L Weight Weight 97 lb 6.4 oz Most Recent Monitor Data Heart Rate from ECG 80 NIBP 145/73 NIBP BP-Mean 97 Respiration from ECG 36 SpO2 98 I&O: 05/09/19 05/10/19 05/11/19 06:59 06:59 06:59 Intake Total 850 1050 Balance 850 1050 Result Diagrams: 05/09/19 04:32 05/09/19 04:32 Radiology Reviewed by me: Yes (CT chest abdo and pelvis) EKG Reviewed by me: Yes (pacing) Hospitalist ROS - Review of Systems ROS unobtainable: due to mental status - Medication Medications: Active Medications Generic Name Dose Route Start Last Admin Trade Name Freq PRN Reason Stop Dose Admin Acetaminophen 1,000 mg 05/08/19 23:17 05/10/19 05:19 Tylenol PO 1,000 mg Q6H PRN Administration Mild Pain (1-3) Hydrocodone Bitart/Acetaminophen 1 tab 05/09/19 07:48 05/10/19 08:49 Rolfe 5/325 PO 1 tab Q4H PRN Administration Moderate Pain (4-6) Albuterol/Ipratropium 3 ml 05/09/19 13:00 05/10/19 06:48 Duoneb NEB 3 ml [id number] MICHAEL Administration Dexamethasone 4 mg 05/08/19 23:59 05/10/19 05:19 Decadron SLOW IVP 4 mg Q6HR MICHAEL Administration Famotidine 20 mg 05/09/19 09:00 05/10/19 08:48 Pepcid PO 20 mg DAILY MIHCAEL Administration Sodium Chloride 1,000 mls @ 50 mls/hr 05/08/19 23:30 05/09/19 21:07 Normal Saline 0.9% IV 1,000 mls .Q20H MICHAEL Administration Piperacillin Sod/Tazobactam 100 mls @ 200 mls/hr 05/09/19 18:00 05/10/19 05: 19 Sod 3.375 gm/ Sodium Chloride IVPB 100 mls Q6HR MICHAEL Administration Isosorbide Mononitrate 30 mg 05/09/19 09:00 05/10/19 08:48 Imdur Er PO 30 mg DAILY MICHAEL Administration Levothyroxine Sodium 100 mcg 05/09/19 06:00 05/10/19 05:19 Synthroid PO 100 mcg 0600 MICHAEL Administration Pantoprazole Sodium 40 mg 05/09/19 09:00 05/10/19 08:49 Protonix PO 40 mg DAILY MICHAEL Administration Saccharomyces Boulardii 250 mg 05/09/19 09:00 05/10/19 08:48 Florastor PO 250 mg DAILY MICHAEL Administration Senna/Docusate Sodium 2 tab 05/09/19 07:48 05/10/19 08:53 Senokot S PO 2 tab BID PRN Administration Constipation Sodium Chloride 10 ml 05/09/19 09:00 05/10/19 08:49 Flush - Normal Saline IVF Not Given Q12HR MICHAEL Trospium 20 mg 05/09/19 09:00 05/10/19 08:48 Trospium PO 20 mg DAILY MICHAEL Administration - Exam General Appearance: NAD, awake alert Eye: PERRL, anicteric sclera ENT: normocephalic atraumatic, no oropharyngeal lesions Neck: supple, symmetric, no thyromegaly Heart: no murmur, no gallops, no rubs Respiratory: CTAB, no wheezes, no rales, no ronchi Gastrointestinal: soft, non-distended, normal bowel sounds Extremities: no cyanosis, no clubbing, no edema Skin: normal turgor, no lesions Neurological: no focal deficits Musculoskeletal: normal tone, normal strength Psychiatric: normal affect, normal behavior Hosp A/P (1) Brain mass Code(s): G93.89 - OTHER SPECIFIED DISORDERS OF BRAIN Status: Acute (2) Acute renal failure superimposed on stage 3 chronic kidney disease Code(s): N17.9 - ACUTE KIDNEY FAILURE, UNSPECIFIED; N18.3 - CHRONIC KIDNEY DISEASE, STAGE 3 (MODERATE) Status: Acute (3) Complicated UTI (urinary tract infection) Code(s): N39.0 - URINARY TRACT INFECTION, SITE NOT SPECIFIED Status: Acute (4) Chronic pain syndrome Code(s): G89.4 - CHRONIC PAIN SYNDROME Status: Chronic (5) Vertebral compression fracture Code(s): M48.50XA - COLLAPSED VERTEBRA, NEC, SITE UNSP, INIT Status: Chronic (6) Anxiety and depression Code(s): F41.9 - ANXIETY DISORDER, UNSPECIFIED; F32.9 - MAJOR DEPRESSIVE DISORDER, SINGLE EPISODE, UNSPECIFIED Status: Chronic (7) Atrial fibrillation Code(s): I48.91 - UNSPECIFIED ATRIAL FIBRILLATION Status: Chronic Qualifiers: Atrial fibrillation type: paroxysmal Qualified Code(s): I48.0 - Paroxysmal atrial fibrillation (8) COPD (chronic obstructive pulmonary disease) Status: Chronic (9) GERD (gastroesophageal reflux disease) Code(s): K21.9 - GASTRO-ESOPHAGEAL REFLUX DISEASE WITHOUT ESOPHAGITIS Status: Chronic Qualifiers: (10) HTN (hypertension) Code(s): I10 - ESSENTIAL (PRIMARY) HYPERTENSION Status: Chronic Qualifiers: (11) Hypothyroidism Code(s): E03.9 - HYPOTHYROIDISM, UNSPECIFIED Status: Chronic Qualifiers: - Plan old records reviewed/req, plan discussed w/ family 05/09/19- today CT chest abdomen and pelvis with oral contrast, will try to get MRI brain, will avoid contrast iv due to renal dysfunction, continue gentle IVF , continue ampicillin, pt is planned for ureteral stent removal tomorrow, will consult urology for that, neurosurgery following, continue decadron for now, on hold chronic anticoagulation, neuro monitoring, prognosis guarded, discussed with son bedside, further plan based on test result. medication reviewed as above, symptomatic treatment. 05/10/19- I have discussed all test result with son and updated, as per my understanding family inclined toward not to go for surgery and in that case will need hospice care at home, today treat her constipation,continue zosyn, urology recommendation noted, ID consulted, continue decadron, continue gentle IVF, add miralax
[2019-05-10] MEDS ORDERED: Polyethylene Glycol 3350 17 GM Packet PO SCH (10:00)
--- NOTE | 2019-05-10 10:37 | PRG ---
DATE OF SERVICE: 05/10/2019 This is a 25-minute subsequent visit note, in which 25 minutes were spent on reviewing the imaging record, evaluation, examination of the patient, greater than 50% time was spent in counseling on Mimi Thapa. I extensively reviewed the MRI of the brain along with a CT scan of the chest, abdomen, and pelvis and also the CT scan of the brain from August of 2017 and compared it to her presentation CT from May 08, 2019. In short, she had a trace amount of edema in the left frontal lobe in August of 2017, however, it was only seen on one, perhaps two 5 mm cuts and there was no discrete mass identified. Nevertheless, she was seen for altered mental status at that point. Suffice to say, now she has a large mass, approximately 23 to 24 mm in size that appears to be extra-axial with extensive vasogenic edema. As such, I am concerned about parasitization of her cerebral blood flow. She has approximately 7 mm of left to right midline shift. On exam this morning, she is alert. She is pleasantly confused. She states she does have constant thoracic and lumbar pain, and review of her CT scan of the chest, abdomen, pelvis yesterday demonstrates no discrete source of metastasis. She has essentially every vertebra of her spine fractured from osteoporosis, hence her decline and she simply does not feel like getting out of bed because it hurts. Obviously, I do not blame her. I have had an extensive discussion with her family and I went over the imaging. We will pursue hospice and palliative care. I think it would be a benefit to taper over the next 8 days of Decadron from 4 mg every 6 hours down to 2 mg twice a day. They are making plans for her to go back to [facility] with hospice. The family has already made these arrangements. Palliative Care will be consulted. Again, I would be in favor of physical therapy while she is at least in the hospital until these disposition arrangements are made. My suspicion on the pathology is perhaps a dural-based met, potentially from the breast versus hemangiopericytoma versus atypical or malignant meningioma. Job ID: [id number]
[2019-05-10] MEDS: Dexamethasone 4 MG TAB PO SCH ×3 (12:08→23:36)
--- NOTE | 2019-05-10 13:34 | CON ---
DATE OF CONSULTATION: 05/10/2019 REASON FOR CONSULTATION: Questions regarding management of her infectious complications related to nephrolithiasis. HISTORY OF PRESENT ILLNESS: An 88-year-old with history of COPD, dementia, hearing impairment, and recurrent nephrolithiasis with various interventions in the past. Last admission a few days ago with abdominal pain, nephrolithiasis with obstruction. At that time, she underwent stenting and treatment of antimicrobial therapy for the isolates, which included Pseudomonas and Enterococcus. After that, she was discharged on oral ampicillin and quinolone. I am not sure if the quinolone component was prescribed. She developed altered mental status, was brought to Dr. Cardenas and she ordered a CT of the brain, which demonstrated a mass in the left occipital area with mass effect. This was confirmed by MRI. The patient is admitted to the [facility] now and I believe that the family has decided for palliative/hospice care after discussions with Neurosurgery. In that regard, most likely, all the subsequent interventions are going to be canceled. She does not appear to be in any distress at this moment. PAST MEDICAL HISTORY: GERD, hypertension, multiple osteoporotic vertebral compression fractures with radiculopathy, DVT, nephrolithiasis, UTI, renal insufficiency stage 3 to 4, and hypertension. PAST SURGICAL HISTORY: Appendectomy, cholecystectomy, hysterectomy, and stent placement for management of obstructive uropathy. SOCIAL HISTORY: Lives at [facility]. Never a smoker. ALLERGIES: NONE. CURRENT MEDICATIONS: 1. Tylenol. 2. Eliquis. 3. Dulcolax. 4. Decadron. 5. Robitussin. 6. Alprazolam. 7. Imdur. 8. Synthroid. 9. Imodium. 10. Claritin. 11. Zofran. 12. Protonix. 13. Zosyn. PHYSICAL EXAMINATION: VITAL SIGNS: Showed normal temperature, T-max 99. Other vital signs are normal. O2 saturation 98% on room air. GENERAL: Appears in no distress. She choked a little bit while I was examining and interviewing her. HEENT: Ocular movements conjugate. LUNGS: Symmetric. Clear breath sounds. HEART: S1 and S2. Regular rate. ABDOMEN: Soft, not distended. There is tenderness, which is diffuse, moderate. EXTREMITIES: Warm. No edema. Pulses 1+ in dorsalis pedis. LABORATORY DATA: White cell count 6.5 and 8.0, hemoglobin 13, platelets 374 with normal differential. INR 1.1. Sodium 138, creatinine 2.67 and 2.13. Liver profile normal. Urinalysis with greater than 50 wbc's. Last urine culture from 05/07 with Lisa albicans and a gram-negative annika. ASSESSMENT AND DISCUSSION: 1. Dementia, hearing impairment, osteoporotic vertebral fractures with chronic radiculopathy. 2. Nephrolithiasis with obstructive uropathy and invasive urinary tract infection. 3. Recently discovered left occipital brain mass with midline shift, on Decadron. Neurosurgeon has advised palliative care at this point, and I believe all the other planned interventions are going to be canceled. If done then she will not require antimicrobial therapy following transfer to the hospice program. Job ID: [id number]
[2019-05-10] MEDS: Sodium Chloride 0.9% 1,000 ML IV SCH ×3 (17:07→20:44)
[2019-05-10] MEDS: Apixaban 2.5 MG TAB PO SCH (20:45)
[2019-05-11] MEDS: HYDROcodone/Acetaminophen 5/325 mg Tablet PO PRN ×4 (02:30→18:52)
[2019-05-11] MEDS: Levothyroxine Sodium 100 MCG TAB PO SCH (05:24)
[2019-05-11] MEDS: Dexamethasone 4 MG TAB PO SCH ×3 (05:24→17:19)
[2019-05-11] MEDS: Piperacillin/Tazobactam 3.375 GM in Sodium Chloride 0.9% 100 ML IVPB SCH ×3 (05:24→17:19)
[2019-05-11] MEDS: Apixaban 2.5 MG TAB PO SCH ×2 (08:50→20:10)
[2019-05-11] MEDS: Famotidine 20 MG TAB PO SCH (08:50)
[2019-05-11] MEDS: Saccharomyces boulardii 250 MG CAP PO SCH (08:51)
[2019-05-11] MEDS: Polyethylene Glycol 3350 17 GM Packet PO SCH (08:51)
[2019-05-11] MEDS: Isosorbide Mononitrate (ER) 30 MG TAB PO SCH (08:51)
[2019-05-11] MEDS: Trospium 20 MG TAB PO SCH (08:51)
[2019-05-11] MEDS: Acetaminophen 500 MG TAB PO PRN ×2 (10:20→15:53)
--- NOTE | 2019-05-11 10:48 | PRG ---
DATE OF SERVICE: 05/11/2019 SUBJECTIVE: The patient seems to be doing relatively fine. It sounds like she is entering the hospice program. OBJECTIVE: VITAL SIGNS: Temperature 98.5, O2 saturation 91%, and blood pressure 163/86. HEENT: Unremarkable. NECK: No adenopathy or JVD. CHEST: Few crackles in the bases. CARDIAC: S1, S2. Regular. ABDOMEN: Soft. EXTREMITIES: No edema. ASSESSMENT: 1. Brain tumor. 2. Underlying chronic obstructive pulmonary disease. PLAN: I agree with the plans for hospice. She has medical orders. No further Pulmonary recommendations. We will sign off. Job ID: [id number]
--- NOTE | 2019-05-11 10:54 | PDOC.HOSPP ---
- Subjective Encounter Date: 05/11/19 Encounter Time: 10:15 Subjective: Patient seen and examined. No new complaints. No overnight events - Objective Vital Signs & Weight: Vital Signs (12 hours) Temp Resp Pulse Ox 05/11/19 08:20 96 05/11/19 08:00 20 96 05/11/19 07:19 98.5 F 05/11/19 04:15 97.9 F 05/10/19 23:39 98.6 F Weight Weight 97 lb 6.4 oz Most Recent Monitor Data Heart Rate from ECG 91 NIBP 163/86 NIBP BP-Mean 111 Respiration from ECG 28 SpO2 100 I&O: 05/10/19 05/11/19 05/12/19 06:59 06:59 06:59 Intake Total 1050 700 240 Output Total 200 Balance 1050 500 240 Result Diagrams: 05/09/19 04:32 05/09/19 04:32 Hospitalist ROS - Review of Systems ENT: denies: ear pain, ear discharge, nose pain, nose discharge, nose congestion , mouth pain, mouth swelling, throat pain, throat swelling, other Respiratory: denies: cough, dry, shortness of breath, hemoptysis, SOB with excertion, pleuritic pain, sputum, wheezing, other Cardiovascular: denies: chest pain, palpitations, orthopnea, paroxysmal noc. dyspnea, edema, light headedness, other Gastrointestinal: denies: nausea, vomiting, abdominal pain, diarrhea, constipation, melena, hematochezia, other Genitourinary: denies: dysuria, frequency, incontinence, hematuria, retention, other Musculoskeletal: denies: neck pain, shoulder pain, arm pain, back pain, hand pain, leg pain, foot pain, other - Medication Medications: Active Medications Generic Name Dose Route Start Last Admin Trade Name Freq PRN Reason Stop Dose Admin Acetaminophen 1,000 mg 05/08/19 23:17 05/11/19 10:20 Tylenol PO 1,000 mg Q6H PRN Administration Mild Pain (1-3) Hydrocodone Bitart/Acetaminophen 1 tab 05/09/19 07:48 05/11/19 08:51 Emmett 5/325 PO 1 tab Q4H PRN Administration Moderate Pain (4-6) Albuterol/Ipratropium 3 ml 05/09/19 13:00 05/11/19 08:01 Duoneb NEB Not Given [id number] MICHAEL Apixaban 2.5 mg 05/10/19 21:00 05/11/19 08:50 Eliquis PO 2.5 mg BID MICHAEL Administration Dexamethasone 4 mg 05/10/19 12:00 05/11/19 05:24 Decadron PO 05/12/19 06:01 4 mg Q6HR MICHAEL Administration Famotidine 20 mg 05/09/19 09:00 05/11/19 08:50 Pepcid PO 20 mg DAILY MICHAEL Administration Sodium Chloride 1,000 mls @ 50 mls/hr 05/08/19 23:30 05/10/19 20:44 Normal Saline 0.9% IV 1,000 mls .Q20H MICHAEL Administration Piperacillin Sod/Tazobactam 100 mls @ 200 mls/hr 05/09/19 18:00 05/11/19 05: 24 Sod 3.375 gm/ Sodium Chloride IVPB 100 mls Q6HR MICHAEL Administration Isosorbide Mononitrate 30 mg 05/09/19 09:00 05/11/19 08:51 Imdur Er PO 30 mg DAILY MICHAEL Administration Levothyroxine Sodium 100 mcg 05/09/19 06:00 05/11/19 05:24 Synthroid PO 100 mcg 0600 MICHAEL Administration Pantoprazole Sodium 40 mg 05/09/19 09:00 05/11/19 08:51 Protonix PO 40 mg DAILY MICHAEL Administration Polyethylene Glycol 17 gm 05/11/19 09:00 05/11/19 08:51 Miralax PO 17 gm DAILY MICHAEL Administration Saccharomyces Boulardii 250 mg 05/09/19 09:00 05/11/19 08:51 Florastor PO 250 mg DAILY MICHAEL Administration Senna/Docusate Sodium 2 tab 05/09/19 07:48 05/10/19 08:53 Senokot S PO 2 tab BID PRN Administration Constipation Sodium Chloride 10 ml 05/09/19 09:00 05/11/19 08:51 Flush - Normal Saline IVF 10 ml Q12HR MICHAEL Administration Trospium 20 mg 05/09/19 09:00 05/11/19 08:51 Trospium PO 20 mg DAILY MICHAEL Administration - Exam General Appearance: NAD, awake alert Eye: PERRL, anicteric sclera ENT: normocephalic atraumatic, no oropharyngeal lesions Neck: supple, symmetric, no JVD, no thyromegaly Heart: RRR, no murmur, no gallops, no rubs Respiratory: CTAB, no wheezes, no rales, no ronchi Gastrointestinal: soft, non-tender, non-distended, normal bowel sounds Extremities: no cyanosis, no clubbing, no edema Skin: normal turgor, no lesions Neurological: no focal deficits Musculoskeletal: normal tone, normal strength Psychiatric: normal affect, normal behavior Hosp A/P (1) Brain mass Code(s): G93.89 - OTHER SPECIFIED DISORDERS OF BRAIN Status: Acute (2) Acute renal failure superimposed on stage 3 chronic kidney disease Code(s): N17.9 - ACUTE KIDNEY FAILURE, UNSPECIFIED; N18.3 - CHRONIC KIDNEY DISEASE, STAGE 3 (MODERATE) Status: Acute (3) Complicated UTI (urinary tract infection) Code(s): N39.0 - URINARY TRACT INFECTION, SITE NOT SPECIFIED Status: Acute (4) Chronic pain syndrome Code(s): G89.4 - CHRONIC PAIN SYNDROME Status: Chronic (5) Vertebral compression fracture Code(s): M48.50XA - COLLAPSED VERTEBRA, NEC, SITE UNSP, INIT Status: Chronic (6) Anxiety and depression Code(s): F41.9 - ANXIETY DISORDER, UNSPECIFIED; F32.9 - MAJOR DEPRESSIVE DISORDER, SINGLE EPISODE, UNSPECIFIED Status: Chronic (7) Atrial fibrillation Code(s): I48.91 - UNSPECIFIED ATRIAL FIBRILLATION Status: Chronic Qualifiers: Atrial fibrillation type: paroxysmal Qualified Code(s): I48.0 - Paroxysmal atrial fibrillation (8) COPD (chronic obstructive pulmonary disease) Status: Chronic (9) GERD (gastroesophageal reflux disease) Code(s): K21.9 - GASTRO-ESOPHAGEAL REFLUX DISEASE WITHOUT ESOPHAGITIS Status: Chronic Qualifiers: (10) HTN (hypertension) Code(s): I10 - ESSENTIAL (PRIMARY) HYPERTENSION Status: Chronic Qualifiers: (11) Hypothyroidism Code(s): E03.9 - HYPOTHYROIDISM, UNSPECIFIED Status: Chronic Qualifiers: - Plan old records reviewed/req 05/09/19- today CT chest abdomen and pelvis with oral contrast, will try to get MRI brain, will avoid contrast iv due to renal dysfunction, continue gentle IVF , continue ampicillin, pt is planned for ureteral stent removal tomorrow, will consult urology for that, neurosurgery following, continue decadron for now, on hold chronic anticoagulation, neuro monitoring, prognosis guarded, discussed with son bedside, further plan based on test result. medication reviewed as above, symptomatic treatment. 05/10/19- I have discussed all test result with son and updated, as per my understanding family inclined toward not to go for surgery and in that case will need hospice care at home, today treat her constipation,continue zosyn, urology recommendation noted, ID consulted, continue decadron, continue gentle IVF, add miralax 05/11/19- family decided with hospice care, transfer to medical, continue current comfortable treatment
--- NOTE | 2019-05-11 12:45 | PRG ---
DATE OF SERVICE: 05/11/2019 SUBJECTIVE: The patient states she is feeling fine. She does have a little bit of urinary frequency, but no major pain from her ureteral stent. She had tentatively been planned for ureteroscopy, but is pending further workup of her brain mass. OBJECTIVE: VITAL SIGNS: Temperature 98.6, pulse 85, respirations 20, blood pressure 160/90, saturation 94% on room air. GENERAL: No apparent distress. Communicative, appears frail and elderly. CARDIOVASCULAR: Regular rate and rhythm. ABDOMEN: Soft, nontender, and nondistended. Positive bowel sounds. EXTREMITIES: No clubbing, cyanosis, or edema. LABORATORY EVALUATION: Full set of labs is in the [facility] system, which I have reviewed. Of note, the patient's white count is 8, hemoglobin of 12, creatinine of 2.13. ASSESSMENT AND PLAN: An 88-year-old white female with possible brain mass, consideration for possible metastatic disease. This is currently being worked up further. From my standpoint, there is nothing urologic at the current time. The patient is symptomatically well controlled. Dr. Daniel Guerra will resume care on Monday to assess any further problems or issues and decide on whether the patient will undergo future ureteroscopy. Job ID: [id number]
[2019-05-12] MEDS: Piperacillin/Tazobactam 3.375 GM in Sodium Chloride 0.9% 100 ML IVPB SCH ×4 (00:01→17:11)
[2019-05-12] MEDS: HYDROcodone/Acetaminophen 5/325 mg Tablet PO PRN ×4 (00:34→15:35)
[2019-05-12] MEDS: Loperamide HCl 2 MG CAP PO PRN ×3 (04:12→21:25)
[2019-05-12] MEDS: Levothyroxine Sodium 100 MCG TAB PO SCH (05:43)
[2019-05-12] MEDS: Dexamethasone 4 MG TAB PO SCH ×2 (05:43)
[2019-05-12] MEDS: Famotidine 20 MG TAB PO SCH (08:52)
[2019-05-12] MEDS: Isosorbide Mononitrate (ER) 30 MG TAB PO SCH (08:52)
[2019-05-12] MEDS: Polyethylene Glycol 3350 17 GM Packet PO SCH (08:52)
[2019-05-12] MEDS: Acetaminophen 500 MG TAB PO PRN (08:52)
[2019-05-12] MEDS: Apixaban 2.5 MG TAB PO SCH ×2 (08:52→21:18)
[2019-05-12] MEDS: Saccharomyces boulardii 250 MG CAP PO SCH (08:52)
[2019-05-12] MEDS: Trospium 20 MG TAB PO SCH (08:54)
--- NOTE | 2019-05-12 10:11 | PDOC.HOSPP ---
- Subjective Encounter Date: 05/12/19 Encounter Time: 08:45 Subjective: Patient seen and examined. No new complaints. No overnight events, she has chronic abdominal discomfort - Objective Vital Signs & Weight: Vital Signs (12 hours) Temp Pulse Resp BP Pulse Ox 05/12/19 04:01 98.1 F 84 16 172/96 H 94 L 05/12/19 00:25 98.5 F 82 16 161/89 H 94 L Weight Weight 97 lb 6.4 oz Most Recent Monitor Data Heart Rate from ECG 91 NIBP 163/86 NIBP BP-Mean 111 Respiration from ECG 28 SpO2 100 I&O: 05/11/19 05/12/19 05/13/19 06:59 06:59 06:59 Intake Total 700 1060 Output Total 200 Balance 500 1060 Result Diagrams: 05/09/19 04:32 05/09/19 04:32 Hospitalist ROS - Review of Systems ENT: denies: ear pain, ear discharge, nose pain, nose discharge, nose congestion , mouth pain, mouth swelling, throat pain, throat swelling, other Respiratory: denies: cough, dry, shortness of breath, hemoptysis, SOB with excertion, pleuritic pain, sputum, wheezing, other Cardiovascular: denies: chest pain, palpitations, orthopnea, paroxysmal noc. dyspnea, edema, light headedness, other Gastrointestinal: reports: abdominal pain. denies: nausea, vomiting, diarrhea, constipation, melena, hematochezia, other Genitourinary: denies: dysuria, frequency, incontinence, hematuria, retention, other Musculoskeletal: denies: neck pain, shoulder pain, arm pain, back pain, hand pain, leg pain, foot pain, other - Medication Medications: Active Medications Generic Name Dose Route Start Last Admin Trade Name Freq PRN Reason Stop Dose Admin Acetaminophen 1,000 mg 05/08/19 23:17 05/12/19 08:52 Tylenol PO 1,000 mg Q6H PRN Administration Mild Pain (1-3) Hydrocodone Bitart/Acetaminophen 1 tab 05/09/19 07:48 05/12/19 05:42 Beulah 5/325 PO 1 tab Q4H PRN Administration Moderate Pain (4-6) Albuterol/Ipratropium 3 ml 05/09/19 13:00 05/12/19 07:30 Duoneb NEB Not Given [id number] MICHAEL Apixaban 2.5 mg 05/10/19 21:00 05/12/19 08:52 Eliquis PO 2.5 mg BID MICHAEL Administration Famotidine 20 mg 05/09/19 09:00 05/12/19 08:52 Pepcid PO 20 mg DAILY MICHAEL Administration Piperacillin Sod/Tazobactam 100 mls @ 200 mls/hr 05/09/19 18:00 05/12/19 05: 41 Sod 3.375 gm/ Sodium Chloride IVPB 100 mls Q6HR MICHAEL Administration Isosorbide Mononitrate 30 mg 05/09/19 09:00 05/12/19 08:52 Imdur Er PO 30 mg DAILY MICHAEL Administration Levothyroxine Sodium 100 mcg 05/09/19 06:00 05/12/19 05:43 Synthroid PO 100 mcg 0600 MICHAEL Administration Loperamide HCl 2 mg 05/09/19 07:48 05/12/19 04:12 Imodium PO 2 mg PRN PRN Administration Diarrhea/Loose Stools Pantoprazole Sodium 40 mg 05/09/19 09:00 05/12/19 08:52 Protonix PO 40 mg DAILY [facility] Administration Polyethylene Glycol 17 gm 05/11/19 09:00 05/12/19 08:52 Miralax PO Not Given DAILY [facility] Saccharomyces Boulardii 250 mg 05/09/19 09:00 05/12/19 08:52 Florastor PO 250 mg DAILY [facility] Administration Senna/Docusate Sodium 2 tab 05/09/19 07:48 05/10/19 08:53 Senokot S PO 2 tab BID PRN Administration Constipation Sodium Chloride 10 ml 05/09/19 09:00 05/12/19 08:52 Flush - Normal Saline IVF 10 ml Q12HR [facility] Administration Trospium 20 mg 05/09/19 09:00 05/12/19 08:54 Trospium PO 20 mg DAILY [facility] Administration - Exam General Appearance: NAD, awake alert Eye: PERRL, anicteric sclera ENT: normocephalic atraumatic, no oropharyngeal lesions Neck: supple, symmetric, no JVD, no thyromegaly Heart: RRR, no murmur, no gallops, no rubs, normal peripheral pulses Respiratory: CTAB, no wheezes, no rales, no ronchi Gastrointestinal: soft, non-distended, normal bowel sounds, no palpable masses, no hepatomegaly, no splenomegaly, no guarding, no rigidity Extremities: no cyanosis, no clubbing, no edema Skin: normal turgor, no lesions, no rashes Neurological: cranial nerve grossly intact, no focal deficits Musculoskeletal: normal tone, normal strength Psychiatric: normal affect, normal behavior Hosp A/P (1) Brain mass Code(s): G93.89 - OTHER SPECIFIED DISORDERS OF BRAIN Status: Acute (2) Acute renal failure superimposed on stage 3 chronic kidney disease Code(s): N17.9 - ACUTE KIDNEY FAILURE, UNSPECIFIED; N18.3 - CHRONIC KIDNEY DISEASE, STAGE 3 (MODERATE) Status: Acute (3) Complicated UTI (urinary tract infection) Code(s): N39.0 - URINARY TRACT INFECTION, SITE NOT SPECIFIED Status: Acute (4) Chronic pain syndrome Code(s): G89.4 - CHRONIC PAIN SYNDROME Status: Chronic (5) Vertebral compression fracture Code(s): M48.50XA - COLLAPSED VERTEBRA, NEC, SITE UNSP, INIT Status: Chronic (6) Anxiety and depression Code(s): F41.9 - ANXIETY DISORDER, UNSPECIFIED; F32.9 - MAJOR DEPRESSIVE DISORDER, SINGLE EPISODE, UNSPECIFIED Status: Chronic (7) Atrial fibrillation Code(s): I48.91 - UNSPECIFIED ATRIAL FIBRILLATION Status: Chronic Qualifiers: Atrial fibrillation type: paroxysmal Qualified Code(s): I48.0 - Paroxysmal atrial fibrillation (8) COPD (chronic obstructive pulmonary disease) Status: Chronic (9) GERD (gastroesophageal reflux disease) Code(s): K21.9 - GASTRO-ESOPHAGEAL REFLUX DISEASE WITHOUT ESOPHAGITIS Status: Chronic Qualifiers: (10) HTN (hypertension) Code(s): I10 - ESSENTIAL (PRIMARY) HYPERTENSION Status: Chronic Qualifiers: (11) Hypothyroidism Code(s): E03.9 - HYPOTHYROIDISM, UNSPECIFIED Status: Chronic Qualifiers: - Plan old records reviewed/req, continue antibiotics 05/09/19- today CT chest abdomen and pelvis with oral contrast, will try to get MRI brain, will avoid contrast iv due to renal dysfunction, continue gentle IVF , continue ampicillin, pt is planned for ureteral stent removal tomorrow, will consult urology for that, neurosurgery following, continue decadron for now, on hold chronic anticoagulation, neuro monitoring, prognosis guarded, discussed with son bedside, further plan based on test result. medication reviewed as above, symptomatic treatment. 05/10/19- I have discussed all test result with son and updated, as per my understanding family inclined toward not to go for surgery and in that case will need hospice care at home, today treat her constipation,continue zosyn, urology recommendation noted, ID consulted, continue decadron, continue gentle IVF, add miralax 05/11/19- family decided with hospice care, transfer to medical, continue current comfortable treatment 05/12/10- family has been agreed with hospice care, currently she will be in hospital as urology may consider to remove stent tomorrow and if that done, after that stable for discharge with hospice. medication reviewed as above, symptomatic treatment
[2019-05-12] MEDS: Dexamethasone 1 MG TAB PO SCH ×2 (11:21→17:11)
--- NOTE | 2019-05-12 17:14 | EKG ---
Test Reason : Blood Pressure : / mmHG Vent. Rate : 082 BPM Atrial Rate : 082 BPM P-R Int : 000 ms QRS Dur : 162 ms QT Int : 452 ms P-R-T Axes : 000 -77 053 degrees QTc Int : 528 ms Electronic ventricular pacemaker When compared with ECG of 03-NOV-2018 16:20, Previous ECG has undetermined rhythm, needs review Confirmed by CHACHO AJ (2) on 05/12/2019 5:13:48 PM Referred By: CHOCO Confirmed By:CHACHO AJ
[2019-05-13] MEDS: Dexamethasone 1 MG TAB PO SCH ×4 (00:19→17:28)
[2019-05-13] MEDS: Piperacillin/Tazobactam 3.375 GM in Sodium Chloride 0.9% 100 ML IVPB SCH ×5 (00:19→23:59)
[2019-05-13] MEDS: HYDROcodone/Acetaminophen 5/325 mg Tablet PO PRN ×5 (01:02→21:10)
[2019-05-13] MEDS: Levothyroxine Sodium 100 MCG TAB PO SCH (06:09)
[2019-05-13] MEDS: Trospium 20 MG TAB PO SCH (09:31)
[2019-05-13] MEDS: Isosorbide Mononitrate (ER) 30 MG TAB PO SCH (09:31)
[2019-05-13] MEDS: Saccharomyces boulardii 250 MG CAP PO SCH (09:31)
[2019-05-13] MEDS: Famotidine 20 MG TAB PO SCH (09:31)
[2019-05-13] MEDS: Apixaban 2.5 MG TAB PO SCH ×2 (09:32→19:40)
[2019-05-13] MEDS: Acetaminophen 500 MG TAB PO PRN (09:33)
[2019-05-13] MEDS: Polyethylene Glycol 3350 17 GM Packet PO SCH (09:35)
--- NOTE | 2019-05-13 09:54 | PRG ---
DATE OF SERVICE: 05/13/2019 SUBJECTIVE: The patient is awake, eating breakfast. Confused. OBJECTIVE: VITAL SIGNS: Stable. ABDOMEN: Soft, nontender, nondistended. No CVA tenderness. LABORATORY DATA: Creatinine is 2.1, which is her baseline. Repeat urine culture demonstrates mixed salina, yeast species. The patient is on Eliquis and Zosyn. IMPRESSION AND PLAN: 1. An 88-year-old female with history of recurrent kidney stones. 2. Narcotic dependence. 3. Advanced age. 4. Newly appreciated brain mass, likely metastatic. Chart was reviewed, courses over the weekend were updated. The patient's family is transitioning to hospice care. I will need to discuss with family regarding her indwelling ureteral stent. As previous discussion with son, suggested that he would consider stent pull in transitioning to hospice care. I will need to coordinate that. The patient is on the schedule this Monday for ureteroscopy and laser lithotripsy. If family desires stent pull in-house, I will need to discuss transition. Informed nurse to contact me and family present. I do not discharge until disposition finalized with [facility]. Job ID: [id number] MTDD
--- NOTE | 2019-05-13 10:44 | PDOC.HOSPP ---
- Subjective Encounter Date: 05/13/19 Encounter Time: 09:00 Subjective: Patient seen and examined. No new complaints. No overnight events - Objective Vital Signs & Weight: Vital Signs (12 hours) Temp Pulse Resp BP Pulse Ox 05/13/19 08:45 97 05/13/19 07:55 99.3 F 82 19 163/91 H 97 05/13/19 04:34 97.1 F L 73 16 160/90 H 94 L 05/13/19 00:15 98.2 F 75 18 162/90 H 95 Weight Weight 97 lb 6.4 oz Most Recent Monitor Data Heart Rate from ECG 91 NIBP 163/86 NIBP BP-Mean 111 Respiration from ECG 28 SpO2 100 I&O: 05/12/19 05/13/19 05/14/19 06:59 06:59 06:59 Intake Total 1060 1550 Balance 1060 1550 Result Diagrams: 05/09/19 04:32 05/09/19 04:32 Hospitalist ROS - Review of Systems ENT: denies: ear pain, ear discharge, nose pain, nose discharge, nose congestion , mouth pain, mouth swelling, throat pain, throat swelling, other Respiratory: denies: cough, dry, shortness of breath, hemoptysis, SOB with excertion, pleuritic pain, sputum, wheezing, other Cardiovascular: denies: chest pain, palpitations, orthopnea, paroxysmal noc. dyspnea, edema, light headedness, other Gastrointestinal: denies: nausea, vomiting, abdominal pain, diarrhea, constipation, melena, hematochezia, other Genitourinary: denies: dysuria, frequency, incontinence, hematuria, retention, other Musculoskeletal: denies: neck pain, shoulder pain, arm pain, back pain, hand pain, leg pain, foot pain, other Other: not reliable due to dementia - Medication Medications: Active Medications Generic Name Dose Route Start Last Admin Trade Name Freq PRN Reason Stop Dose Admin Acetaminophen 1,000 mg 05/08/19 23:17 05/13/19 09:33 Tylenol PO 1,000 mg Q6H PRN Administration Mild Pain (1-3) Hydrocodone Bitart/Acetaminophen 1 tab 05/09/19 07:48 05/13/19 06:14 Streator 5/325 PO 1 tab Q4H PRN Administration Moderate Pain (4-6) Apixaban 2.5 mg 05/10/19 21:00 05/13/19 09:32 Eliquis PO 2.5 mg BID MICHAEL Administration Dexamethasone 3 mg 05/12/19 12:00 05/13/19 06:09 Decadron PO 05/14/19 06:01 3 mg Q6HR MICHAEL Administration Famotidine 20 mg 05/09/19 09:00 05/13/19 09:31 Pepcid PO 20 mg DAILY MICHAEL Administration Piperacillin Sod/Tazobactam 100 mls @ 200 mls/hr 05/09/19 18:00 05/13/19 06: 09 Sod 3.375 gm/ Sodium Chloride IVPB 100 mls Q6HR MICHAEL Administration Isosorbide Mononitrate 30 mg 05/09/19 09:00 05/13/19 09:31 Imdur Er PO 30 mg DAILY [facility] Administration Levothyroxine Sodium 100 mcg 05/09/19 06:00 05/13/19 06:09 Synthroid PO 100 mcg 0600 MICHAEL Administration Loperamide HCl 2 mg 05/09/19 07:48 05/12/19 21:25 Imodium PO 2 mg PRN PRN Administration Diarrhea/Loose Stools Pantoprazole Sodium 40 mg 05/09/19 09:00 05/13/19 09:31 Protonix PO 40 mg DAILY [facility] Administration Polyethylene Glycol 17 gm 05/11/19 09:00 05/13/19 09:35 Miralax PO Not Given DAILY [facility] Saccharomyces Boulardii 250 mg 05/09/19 09:00 05/13/19 09:31 Florastor PO 250 mg DAILY [facility] Administration Senna/Docusate Sodium 2 tab 05/09/19 07:48 05/10/19 08:53 Senokot S PO 2 tab BID PRN Administration Constipation Sodium Chloride 10 ml 05/09/19 09:00 05/13/19 09:35 Flush - Normal Saline IVF 10 ml Q12HR [facility] Administration Trospium 20 mg 05/09/19 09:00 05/13/19 09:31 Trospium PO 20 mg DAILY MICHAEL Administration - Exam General Appearance: NAD Eye: PERRL, anicteric sclera ENT: normocephalic atraumatic, no oropharyngeal lesions Neck: supple, symmetric, no JVD, no thyromegaly Heart: RRR, no murmur, no gallops, no rubs Respiratory: CTAB, no wheezes, no rales, no ronchi, normal chest expansion Gastrointestinal: soft, non-tender, non-distended, normal bowel sounds, no palpable masses Extremities: no cyanosis, no clubbing, no edema Skin: normal turgor, no lesions Neurological: no focal deficits Musculoskeletal: normal tone, normal strength Psychiatric: normal affect, normal behavior Hosp A/P (1) Brain mass Code(s): G93.89 - OTHER SPECIFIED DISORDERS OF BRAIN Status: Acute (2) Acute renal failure superimposed on stage 3 chronic kidney disease Code(s): N17.9 - ACUTE KIDNEY FAILURE, UNSPECIFIED; N18.3 - CHRONIC KIDNEY DISEASE, STAGE 3 (MODERATE) Status: Acute (3) Complicated UTI (urinary tract infection) Code(s): N39.0 - URINARY TRACT INFECTION, SITE NOT SPECIFIED Status: Acute (4) Chronic pain syndrome Code(s): G89.4 - CHRONIC PAIN SYNDROME Status: Chronic (5) Vertebral compression fracture Code(s): M48.50XA - COLLAPSED VERTEBRA, NEC, SITE UNSP, INIT Status: Chronic (6) Anxiety and depression Code(s): F41.9 - ANXIETY DISORDER, UNSPECIFIED; F32.9 - MAJOR DEPRESSIVE DISORDER, SINGLE EPISODE, UNSPECIFIED Status: Chronic (7) Atrial fibrillation Code(s): I48.91 - UNSPECIFIED ATRIAL FIBRILLATION Status: Chronic Qualifiers: Atrial fibrillation type: paroxysmal Qualified Code(s): I48.0 - Paroxysmal atrial fibrillation (8) COPD (chronic obstructive pulmonary disease) Status: Chronic (9) GERD (gastroesophageal reflux disease) Code(s): K21.9 - GASTRO-ESOPHAGEAL REFLUX DISEASE WITHOUT ESOPHAGITIS Status: Chronic Qualifiers: (10) HTN (hypertension) Code(s): I10 - ESSENTIAL (PRIMARY) HYPERTENSION Status: Chronic Qualifiers: (11) Hypothyroidism Code(s): E03.9 - HYPOTHYROIDISM, UNSPECIFIED Status: Chronic Qualifiers: - Plan old records reviewed/req, plan discussed w/ family, continue antibiotics, PT/OT , [employer]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 medication reviewed as above, symptomatic treatment. 05/10/19- I have discussed all test result with son and updated, as per my understanding family inclined toward not to go for surgery and in that case will need hospice care at home, today treat her constipation,continue zosyn, urology recommendation noted, ID consulted, continue decadron, continue gentle IVF, add miralax 05/11/19- family decided with hospice care, transfer to medical, continue current comfortable treatment 05/12/10- family has been agreed with hospice care, currently she will be in hospital as urology may consider to remove stent tomorrow and if that done, after that stable for discharge with hospice. medication reviewed as above, symptomatic treatment 05/13/19- spoke with son and prefers that stent removal and stone treatment, continue empiric zosyn, urology to schedule procedure and then observe overnight and consider discharge to [facility] with hospice.
--- NOTE | 2019-05-13 11:35 | PRG ---
DATE OF SERVICE: 05/11/2019 This is a 25-minute subsequent visit note, in which 25 minutes were spent reviewing the imaging record, evaluation, examination of the patient, formulation of plan. Greater than 50% of time was spent in counseling on Mimi Thapa. Ms. Thapa continues to be neurologically intact with exception of mild pleasant confusion. I have met with her third son this morning and I have gone over her course and the plan for transfer back to the [place] with hospice. We have Job ID: [id number]
[2019-05-13] MEDS: Morphine 2 MG/ML SYRINGE SLOW IVP PRN ×2 (14:36→19:39)
--- NOTE | 2019-05-13 16:16 | PQF ---
CLINICAL DOCUMENTATION IMPROVEMENT CLARIFICATION FORM: ICD-10 Updated PLEASE DO AN ADDENDUM TO THE PROGRESS NOTE WITH ANY DOCUMENTATION UPDATES OR ADDITIONS AND CARRY THROUGH TO DC SUMMARY. THANK YOU. DATE: 05/13/2019 ATTN: Dr. Pond Please exercise your independent, professional judgment in responding to the clarification form. Clinical indicators are provided on the bottom of this form for your review Please check appropriate box(s): [ x ] I (concur) with the Nursing Assessment findings as stated below. [ ] Pressure Ulcer: (Stage I: Erythema; Stage II: Partial thickness; Stage III : Full thickness; Stage IV: Necrosis to muscle/bone) [ ] Location: POA: [ ] Yes [ ] No [ ] Unable to determine Stage (I to IV): __(Left__Right__Bilateral__N/A___) [ ] Location: POA: [ ] Yes [ ] No [ ] Unable to determine Stage (I to IV): __(Left__Right___Bilateral__N/A__) [ ] Other diagnosis [ ] Unable to determine In addition, please specify: Present on Admission (POA): [ x ] Yes [ ] No [ ] Unable to determine For continuity of documentation, please document condition throughout progress notes and discharge summary. Thank You. CLINICAL INDICATORS - SIGNS / SYMPTOMS / LABS Nursing Assessment 05/08 @2300: Right Heel Pressure Ulcer Stage II SCG Pressure Ulcer Stage I RISKS: H&P 05/08: Resides at [facility] over the last 13 yrs and is ambulatory with a rolling walker. 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 TREATMENT: 05/08 Nursing Assessment: Skin Interventions: Mattress: Pressure Reduction Position changes: Q2h in bed, Q1H in chair Skin kept from excessive moisture Pre-ulcer skin changes limited to persistent focal edema (Stage 1) Abrasion, blister, partial thickness skin loss involving epidermis and/or dermis (Stage 2) Full thickness skin loss involving damage or necrosis of SQ tissue. (Stage 3) Necrosis of soft tissue through to underlying muscle, tendon, or bone. (Stage 4) Purple or maroon discolored skin or blood filled blister Thank you, Anni (This form is maintained as a part of the permanent medical record) 2015 [id number]. All Rights Reserved Anni Topete RN, BSN [email or web address] Office: [phone] [facility]
[2019-05-14] MEDS: Acetaminophen 500 MG TAB PO PRN
[2019-05-14] MEDS: Dexamethasone 1 MG TAB PO SCH ×4 (00:02→17:41)
[2019-05-14] MEDS: HYDROcodone/Acetaminophen 5/325 mg Tablet PO PRN ×6 (00:57→21:19)
[2019-05-14] MEDS: Piperacillin/Tazobactam 3.375 GM in Sodium Chloride 0.9% 100 ML IVPB SCH ×3 (05:03→17:34)
[2019-05-14] MEDS: Levothyroxine Sodium 100 MCG TAB PO SCH (05:03)
--- NOTE | 2019-05-14 08:37 | PRG ---
DATE OF SERVICE: 05/14/2019 SUBJECTIVE: The patient is alert and awake; however, confused. OBJECTIVE: VITAL SIGNS: Stable. She is afebrile. ABDOMEN: No CVA tenderness. PERTINENT LABS: May 09, white count is normal. May 09, creatinine 2.1, which is her baseline. Urine culture, May 08 was mixed sal[place]. Previous urine culture demonstrating Pseudomonas and Lisa currently on Zosyn. IMPRESSION AND PLAN: 1. An 88-year-old female with recurrent kidney stones. 2. Narcotic dependence. 3. Advanced age. 4. Newly appreciated brain mass, likely metastatic. 5. Prior history of ureteral stent, which was placed due to obstructing ureteral calculi with the UTI. Due to her advanced age, comorbidities, and newly appreciated brain mass, family has elected to transition the patient to hospice. I had a long discussion with both sons yesterday. They desired the ureteral stent to be removed with full understanding that UTI, urosepsis, renal failure, may ensue. They fully understand the ramifications and desire their mother to be transitioned to hospice. Therefore, requesting stent pull. The patient is to be n.p.o., we will remove stent under sedation given her age and comorbidities. Hold Eliquis. Continue Zosyn. N.P.O. after midnight. After the stent is removed, from urologic perspective, the patient can be transferred to inpatient hospice per family's request. Job ID: [id number] MTDD
[2019-05-14] MEDS: Famotidine 20 MG TAB PO SCH (09:37)
[2019-05-14] MEDS: Isosorbide Mononitrate (ER) 30 MG TAB PO SCH (09:37)
[2019-05-14] MEDS: Trospium 20 MG TAB PO SCH (09:37)
[2019-05-14] MEDS: Saccharomyces boulardii 250 MG CAP PO SCH (09:37)
[2019-05-14] MEDS: Polyethylene Glycol 3350 17 GM Packet PO SCH (09:38)
--- NOTE | 2019-05-14 12:05 | PDOC.HOSPP ---
- Subjective Encounter Date: 05/14/19 Encounter Time: 09:15 Subjective: Patient seen and examined. No new complaints. No overnight events - Objective Vital Signs & Weight: Vital Signs (12 hours) Temp Pulse Resp BP Pulse Ox 05/14/19 11:59 98.3 F 81 14 158/91 H 95 05/14/19 08:00 98.1 F 76 14 147/78 H 94 L 05/14/19 03:40 97.9 F 88 14 95 05/14/19 00:06 98.5 F 78 14 165/97 H 94 L Weight Weight 97 lb 6.4 oz Most Recent Monitor Data Heart Rate from ECG 91 NIBP 163/86 NIBP BP-Mean 111 Respiration from ECG 28 SpO2 100 I&O: 05/13/19 05/14/19 05/15/19 06:59 06:59 06:59 Intake Total 1550 1350 Balance 1550 1350 Result Diagrams: 05/09/19 04:32 05/09/19 04:32 Hospitalist ROS - Review of Systems ROS unobtainable: due to mental status - Medication Medications: Active Medications Generic Name Dose Route Start Last Admin Trade Name Freq PRN Reason Stop Dose Admin Acetaminophen 1,000 mg 05/08/19 23:17 05/14/19 00:00 Tylenol PO 1,000 mg Q6H PRN Administration Mild Pain (1-3) Hydrocodone Bitart/Acetaminophen 1 tab 05/09/19 07:48 05/14/19 09:37 Monument 5/325 PO 1 tab Q4H PRN Administration Moderate Pain (4-6) Famotidine 20 mg 05/09/19 09:00 05/14/19 09:37 Pepcid PO 20 mg DAILY MICHAEL Administration Piperacillin Sod/Tazobactam 100 mls @ 200 mls/hr 05/09/19 18:00 05/14/19 05: 03 Sod 3.375 gm/ Sodium Chloride IVPB 100 mls Q6HR MICHAEL Administration Isosorbide Mononitrate 30 mg 05/09/19 09:00 05/14/19 09:37 Imdur Er PO 30 mg DAILY MICHAEL Administration Levothyroxine Sodium 100 mcg 05/09/19 06:00 05/14/19 05:03 Synthroid PO 100 mcg 0600 MICHAEL Administration Loperamide HCl 2 mg 05/09/19 07:48 05/12/19 21:25 Imodium PO 2 mg PRN PRN Administration Diarrhea/Loose Stools Morphine Sulfate 2 mg 05/10/19 11:02 05/13/19 19:39 Morphine SLOW IVP 2 mg Q4H PRN Administration Pain Pantoprazole Sodium 40 mg 05/09/19 09:00 05/14/19 09:37 Protonix PO 40 mg DAILY MICHAEL Administration Polyethylene Glycol 17 gm 05/11/19 09:00 05/14/19 09:38 Miralax PO 17 gm DAILY MICHAEL Administration Saccharomyces Boulardii 250 mg 05/09/19 09:00 05/14/19 09:37 Florastor PO 250 mg DAILY MICHAEL Administration Senna/Docusate Sodium 2 tab 05/09/19 07:48 05/10/19 08:53 Senokot S PO 2 tab BID PRN Administration Constipation Sodium Chloride 10 ml 05/09/19 09:00 05/14/19 09:38 Flush - Normal Saline IVF Not Given Q12HR MICHAEL Sodium Chloride 10 ml 05/09/19 07:54 05/13/19 14:38 Flush - Normal Saline IVF 10 ml PRN PRN Administration Saline Flush Trospium 20 mg 05/09/19 09:00 05/14/19 09:37 Trospium PO 20 mg DAILY MICHAEL Administration - Exam General Appearance: NAD, awake alert Eye: PERRL, anicteric sclera ENT: normocephalic atraumatic, no oropharyngeal lesions Neck: supple, symmetric, no JVD Heart: RRR, no murmur, no gallops, no rubs Respiratory: CTAB, no wheezes, no rales, no ronchi Gastrointestinal: soft, non-tender, non-distended, normal bowel sounds Extremities: no cyanosis, no clubbing, no edema Skin: normal turgor, no lesions Neurological: no focal deficits Musculoskeletal: normal tone, normal strength Psychiatric: normal affect, normal behavior Hosp A/P (1) Brain mass Code(s): G93.89 - OTHER SPECIFIED DISORDERS OF BRAIN Status: Acute (2) Acute renal failure superimposed on stage 3 chronic kidney disease Code(s): N17.9 - ACUTE KIDNEY FAILURE, UNSPECIFIED; N18.3 - CHRONIC KIDNEY DISEASE, STAGE 3 (MODERATE) Status: Acute (3) Complicated UTI (urinary tract infection) Code(s): N39.0 - URINARY TRACT INFECTION, SITE NOT SPECIFIED Status: Acute (4) Chronic pain syndrome Code(s): G89.4 - CHRONIC PAIN SYNDROME Status: Chronic (5) Vertebral compression fracture Code(s): M48.50XA - COLLAPSED VERTEBRA, NEC, SITE UNSP, INIT Status: Chronic (6) Anxiety and depression Code(s): F41.9 - ANXIETY DISORDER, UNSPECIFIED; F32.9 - MAJOR DEPRESSIVE DISORDER, SINGLE EPISODE, UNSPECIFIED Status: Chronic (7) Atrial fibrillation Code(s): I48.91 - UNSPECIFIED ATRIAL FIBRILLATION Status: Chronic Qualifiers: Atrial fibrillation type: paroxysmal Qualified Code(s): I48.0 - Paroxysmal atrial fibrillation (8) COPD (chronic obstructive pulmonary disease) Status: Chronic (9) GERD (gastroesophageal reflux disease) Code(s): K21.9 - GASTRO-ESOPHAGEAL REFLUX DISEASE WITHOUT ESOPHAGITIS Status: Chronic Qualifiers: (10) HTN (hypertension) Code(s): I10 - ESSENTIAL (PRIMARY) HYPERTENSION Status: Chronic Qualifiers: (11) Hypothyroidism Code(s): E03.9 - HYPOTHYROIDISM, UNSPECIFIED Status: Chronic Qualifiers: - Plan old records reviewed/req, continue antibiotics, social work job titles 05/09/19- today CT chest abdomen and pelvis with oral contrast, will try to get MRI brain, will avoid contrast iv due to renal dysfunction, continue gentle IVF , continue ampicillin, pt is planned for ureteral stent removal tomorrow, will consult urology for that, neurosurgery following, continue decadron for now, on hold chronic anticoagulation, neuro monitoring, prognosis guarded, discussed with son bedside, further plan based on test result. medication reviewed as above, symptomatic treatment. 05/10/19- I have discussed all test result with son and updated, as per my understanding family inclined toward not to go for surgery and in that case will need hospice care at home, today treat her constipation,continue zosyn, urology recommendation noted, ID consulted, continue decadron, continue gentle IVF, add miralax 05/11/19- family decided with hospice care, transfer to medical, continue current comfortable treatment 05/12/10- family has been agreed with hospice care, currently she will be in hospital as urology may consider to remove stent tomorrow and if that done, after that stable for discharge with hospice. medication reviewed as above, symptomatic treatment 05/13/19- spoke with son and prefers that stent removal and stone treatment, continue empiric zosyn, urology to schedule procedure and then observe overnight and consider discharge to snu with hospice. 05/14/19- continue zosyn, today plan for removal of stent and family request to keep overnight and DC tomorrow to snu with hospice
[2019-05-14] MEDS: Loperamide HCl 2 MG CAP PO PRN (21:19)
[2019-05-15] MEDS: Dexamethasone 1 MG TAB PO SCH ×3 (00:07→11:34)
[2019-05-15] MEDS: Piperacillin/Tazobactam 3.375 GM in Sodium Chloride 0.9% 100 ML IVPB SCH ×3 (00:07→11:20)
[2019-05-15] MEDS: Loperamide HCl 2 MG CAP PO PRN ×2 (02:33→04:14)
[2019-05-15] MEDS: HYDROcodone/Acetaminophen 5/325 mg Tablet PO PRN ×2 (02:34→11:35)
[2019-05-15] MEDS: Levothyroxine Sodium 100 MCG TAB PO SCH (05:23)
[2019-05-15] MEDS ORDERED: Fentanyl 100 MCG/2 ML VIAL ONE (07:22)
[2019-05-15] MEDS ORDERED: Labetalol HCl 100 MG/20 ML VIAL ONE (09:00)
[2019-05-15] MEDS: Polyethylene Glycol 3350 17 GM Packet PO SCH (11:19)
[2019-05-15] MEDS: Famotidine 20 MG TAB PO SCH (11:33)
[2019-05-15] MEDS: Isosorbide Mononitrate (ER) 30 MG TAB PO SCH (11:33)
[2019-05-15] MEDS: Saccharomyces boulardii 250 MG CAP PO SCH (11:34)
[2019-05-15] MEDS: Trospium 20 MG TAB PO SCH (11:49)
[2019-05-15 12:31] VITALS: TEMP 98.2
--- NOTE | 2019-05-15 12:54 | OP ---
DATE OF PROCEDURE: 05/15/2019 PREOPERATIVE DIAGNOSIS: History of right ureteral, renal calculi. POSTOPERATIVE DIAGNOSIS: History of right ureteral, renal calculi. PROCEDURES PERFORMED: Cystoscopy, right stent pull. ANESTHESIA: TIVA. COMPLICATIONS: None apparent. DESCRIPTION OF PROCEDURE: Ms. Thapa was taken to the operating room, placed in a supine position. TIVA anesthesia was administered and genital area was formally prepped and draped. Using a rigid 22-Tajik cystoscope, we performed a cystoscopy and removed the stent uneventfully. She tolerated the procedure well and transported to the recovery room in stable condition. The patient's family had requested stent pull as they are transitioning her to hospice due to her advanced age, comorbidities, and newly appreciated brain mass, likely metastatic. She will be transitioned back to the floor and will be discharged to [facility]. Job ID: [id number]
[2019-05-15 13:05] VITALS: BP 155/74
--- NOTE | 2019-05-15 13:40 | DIS ---
DATE OF ADMISSION: 05/08/2019 DATE OF DISCHARGE: 05/15/2019 DISCHARGE DISPOSITION: [facility], with [facility]. FAMILY CARE PHYSICIAN: Devi Cardenas MD CHIEF COMPLAINT: Confusion with right-sided weakness. ADMISSION DIAGNOSES: 1. Brain mass, compatible with neoplasm. 2. Right-sided weakness secondary to brain mass. 3. Acute on chronic kidney injury, stage 4. 4. Urinary tract infection with Enterococcus species. 5. Essential hypertension. DISCHARGE DIAGNOSES: 1. Brain neoplasm, with right-sided weakness. 2. Acute kidney injury, superimposed on chronic kidney disease, stage 4. 3. Urinary tract infection, present on admission with Enterococcus species, status post treatment. 4. History of nephrolithiasis, with cessation of ureteral stent during this hospitalization. 5. Pressure ulcer, present on admission, right heel, stage 2. 6. SCG pressure ulcer stage 1, present on admission. 7. Chronic pain syndrome. 8. Vertebral compression fracture. 9. Paroxysmal atrial fibrillation. 10. Anxiety/depression. 11. Chronic obstructive pulmonary disease, chronic. 12. Gastroesophageal reflux disease. 13. Essential hypertension. 14. Hypothyroidism. CONSULTS DURING HOSPITAL STAY: 1. Neurosurgery, Brigido Prado MD. 2. Infectious Disease, Trey Lipscomb MD. 3. Urology, Hue Forrester DO. HOSPITAL COURSE: Ms. Thapa is a pleasant 88-year-old female, admitted on [address] Cardenas's office, where she was evaluated for confusion and right-sided weakness. CT imaging revealed left frontal mass with associated vasogenic edema and mild midline shift. Seen by Neurosurgical Service, recommendation of initiation of Decadron. Additionally, history of enterococcal urinary tract infection with sepsis during recent admission to [facility], with previous discharge on 04/27/2019, on oral antibiotic course. Seen and evaluated by Neurosurgical Team, staging CT scan noting nonspecific subcentimeter pulmonary nodules right upper lobe measuring 4 mm. Right ureteral stent noted, multiple compression fractures present. Please see report for full details. On 05/09/2019, brain MRI performed showing enhancing dural-based extra-axial mass left frontal region with associated vasogenic edema, concerning for metastatic lesion. Ultimately, given her age and comorbidities, family opted to pursue a conservative course of hospice. Regarding urinary tract infection, per ID recommendation, no additional antimicrobial was necessary at the point of hospital discharge. Thus, Zosyn discontinued. On the day of discharge, I saw and evaluated the patient. Per the patient/ family request, ureteral stent discontinued. The patient appears stable for transition to [facility]dc facility, [facility] have accepted the patient to their services. MEDICATIONS: Reconciled home medications, discontinued Eliquis. Continue Decadron, initiated during hospital stay. Remainder of medications have been reconciled. However, these can likely be simplified upon the formal admission process to Hospice Services. At this point in time, lists include; 1. Isosorbide mononitrate 30 mg p.o. once daily. 2. Levothyroxine 100 mcg p.o. once daily. 3. Florastor 250 mg p.o. daily. 4. VESIcare 5 mg p.o. once daily. 5. Tylenol 1000 mg p.o. q.6 hours p.r.n. pain. 6. Xanax 0.25 mg p.o. daily p.r.n. anxiety. 7. Amlodipine 2.5 mg p.o. daily. 8. Dulcolax 10 mg suppository p.r. daily. 9. Calcium plus vitamin D 1 tablet p.o. at bedtime. 10. Vitamin D 1000 mg p.o. once daily. 11. Clonidine 0.1 mg p.o. q.4 hours p.r.n. elevated blood pressure. 12. Decadron 4 mg p.o. daily. 13. Docusate 100 mg p.o. b.i.d. 14. Pepcid 20 mg p.o. b.i.d. 15. Ferrous sulfate 325 mg p.o. b.i.d. 16. Lasix 20 mg p.o. b.i.d. 17. Kevil 10/325 one p.o. q.6 hours hourly p.r.n. pain. 18. DuoNeb q.4 hours p.r.n. shortness of breath. 19. Claritin 10 mg p.o. once daily. 20. Milk of magnesia 30 mL p.o. daily. 21. Multivitamin p.o. daily. 22. Zofran 4 mg p.o. q.6 hours p.r.n. nausea. 23. Azo 1 tablet 195 mg p.o. q.8 hours p.r.n. dysuria. 24. MiraLAX 17 g p.o. daily. 25. Klor-Con 10 mEq p.o. b.i.d. 26. Trazodone 50 mg p.o. at bedtime. 27. Trospium 20 mg p.o. b.i.d. DIET: Regular/pleasure feeds. ACTIVITY: As tolerated. TIME SPENT: Time spent on care/discharge/formalities of discharge, 45 minutes. Received call from facility post discharge; call placed to facility's preferred pharmacy for decadron 4mg, #30 tabs Job ID: [id number] MTDD
[2019-05-16] MEDS ORDERED: Dexamethasone 1 MG TAB PO SCH (14:00)
[2019-05-18] MEDS ORDERED: Dexamethasone 1 MG TAB PO SCH (17:00)
== END 2019-05-15 13:00 | disposition hospice, inpatient (51) | DRG 54 ==
LOC: ERS 15:25 → IMCU/EMU 19:24 → SURG A 05-11 16:26
PROVIDERS: ADMIT Internal Medicine; ATTEND Internal Medicine
PROC: 0TP98DZ Removal of Intraluminal Device from Ureter, Via Natural or Artificial Opening Endoscopic (ICD-10-PCS; principal; 2019-05-15)
DX: C71.1 Malignant neoplasm of frontal lobe (principal); G93.6 Cerebral edema; Z66 Do not resuscitate; Z51.5 Encounter for palliative care; N17.9 Acute kidney failure, unspecified; N18.4 Chronic kidney disease, stage 4 (severe); N39.0 Urinary tract infection, site not specified; G81.91 Hemiplegia, unspecified affecting right dominant side; F11.20 Opioid dependence, uncomplicated; M80.08XA Age-related osteoporosis with current pathological fracture, vertebra(e), initial encounter for fracture; K21.9 Gastro-esophageal reflux disease without esophagitis; E03.9 Hypothyroidism, unspecified; J44.9 Chronic obstructive pulmonary disease, unspecified; F41.9 Anxiety disorder, unspecified; F32.9 Major depressive disorder, single episode, unspecified; D63.1 Anemia in chronic kidney disease; I12.9 Hypertensive chronic kidney disease with stage 1 through stage 4 chronic kidney disease, or unspecified chronic kidney disease; B95.2 Enterococcus as the cause of diseases classified elsewhere; L89.612 Pressure ulcer of right heel, stage 2; R91.1 Solitary pulmonary nodule; L89.151 Pressure ulcer of sacral region, stage 1; G89.4 Chronic pain syndrome; I48.0 Paroxysmal atrial fibrillation; Z96.643 Presence of artificial hip joint, bilateral; M54.10 Radiculopathy, site unspecified; K59.00 Constipation, unspecified; Z87.891 Personal history of nicotine dependence; Z90.710 Acquired absence of both cervix and uterus; Z95.0 Presence of cardiac pacemaker; Z90.49 Acquired absence of other specified parts of digestive tract; Z86.718 Personal history of other venous thrombosis and embolism; Z79.899 Other long term (current) drug therapy; Z79.01 Long term (current) use of anticoagulants; Z79.890 Hormone replacement therapy; Z95.1 Presence of aortocoronary bypass graft
CPT/HCPCS: 36415; 70450; 70553; 71250; 74177; 80048; 80053; 81001; 81003; 81015; 85025; 85610; 85730; 87077; 87086; 87186; 93005; 93010; 94640; 96361; 96374; J0290; J0360; J1100; J1885; J2270; J2543; J3010; J3490; J7620; J8540